=== PATIENT | male | born 1960 | race Caucasian/White ===

== ENCOUNTER 2018-06-12 10:12 | Inpatient (IN) | payer MEDICARE, MEDICAID ==
[2018-06-12 10:45] LABS: ABS Basophils 0.1 10^3/ul (0-0.2); ABS Eosinophils 0.4 10^3/ul (0-0.6); ABS Lymphocytes 1.6 10^3/ul (1.0-4.8); ABS Monocytes 0.5 10^3/ul (0-0.8); ABS Neutrophils 2.2 10^3/ul (1.5-7.7); ABS Nucleated RBC 0 10^3/ul; Eosinophil % 7.7 % (0-6); Hematocrit 40 % (42-52); Hemoglobin 13.3 g/dl (14.0-18.0); Lymphocyte % 34.7 % (25-47); Mean Corpuscular HGB Conc 33 g/dl (31-36); Mean Corpuscular Hemoglobin 29 pg (27-31); Mean Corpuscular Volume 88 fL (80-94); Mean Platelet Volume 7.2 um3 (7.4-10.4); Nucleated Red Blood Cells % 0; Platelet Count 186 10^3/ul (150-450); Red Blood Count 4.56 10^6/ul (4.00-5.40); Red Cell Distribution Width 17 % (10.5-15); White Blood Count 4.6 10^3/ul (3.5-10.8)
[2018-06-12 10:52] LABS: Urine Appearance Clear; Urine Blood Negative (Negative); Urine Color Straw; Urine Ketones Negative (Negative); Urine Protein Negative (Negative); Urine Specific Gravity 1.005 (1.010-1.030); Urine Urobilinogen Negative (Negative)
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
[2018-06-12 11:03] LABS: EGFR Non-African American 135.8 (>60)
[2018-06-12] MEDS ORDERED: chlordiazePOXIDE CAP* 25 MG PO ONE ×2 (11:18→16:34)
[2018-06-12] MEDS ORDERED: chlordiazePOXIDE/Clidinium 1 CAP CAP PO ONE (16:12)
[2018-06-12] MEDS ORDERED: Thiamine IV 100 MG, Folic Acid IV* 1 MG, Multiple Vitamin IV ADULT* 10 ML in NS 0.9% 10... IV ONE (17:34)
[2018-06-12] MEDS ORDERED: Dextrose 50% Syringe 50 ML* 25 GM/50 ML SYRINGE IV PUSH PRN (17:38)
[2018-06-12] MEDS ORDERED: NS 0.9% 1000 ML* 1,000 ML IV SCH (17:45)
[2018-06-12] MEDS: LORazepam TAB(*) 1 MG PO SCH (19:20)
[2018-06-12] MEDS: Omeprazole CAP* 20 MG PO SCH (19:20)
[2018-06-12] MEDS: Gabapentin CAP(*) 100 MG PO SCH (19:21)
[2018-06-12] MEDS: hydrOXYzine HCL TAB* 25 MG PO PRN (19:21)
[2018-06-12] MEDS: Nicotine PATCH 21 MG/24 HR* PATCH TRANSDERM SCH (19:23)
[2018-06-12] MEDS: Nicotine Patch Removal NOTE FOLLOW UP SCH (20:14)
--- NOTE | 2018-06-12 22:27 | HP ---
HISTORY AND PHYSICAL: DATE OF ADMISSION: 06/12/18 PRIMARY CARE PROVIDER: Unknown. ATTENDING PHYSICIAN WHILE IN THE HOSPITAL: Dr. Genet Hicks * (report dictated by Aureliano Arriola NP) CHIEF COMPLAINT: 1. EtOH abuse. 2. EtOH withdrawal. HISTORY OF PRESENT ILLNESS: Mr. Chun is a 58-year-old male patient. He has a known history of substance abuse, particularly alcohol, he drinks about 1 to 2 pints of vodka a day. He was sober for 6 months and then unfortunately he started actively drinking. On 05/25/18, he relocated to [place] for better support. He also carries a history of Korsakoff dementia, history of [place], history of CVA secondary to complications of PCI. He has a history of CAD, diabetes, hypertension, hyperlipidemia, CHARLENE, and Guzman's esophagus. He is coming in to our ER today because he knew that he was getting in to trouble. In terms of drinking, he was causing harm to himself. He says that him drinking is like trying to commit suicide, although when I asked him point blank if he was suicidal, he said "no" and he says he does not have a plan, but he knows that drinking is going to kill him, so he needs help and he does relay the fact that when he does go through EtOH withdrawal, it can be quite violent. He has had trouble with psychosis in the past. He has also had trouble with seizures in the past. He came in to the ER. There was concern because when he hit the door, he was noted to be having an alcohol level of over 200. He started showing signs of early withdrawal with just mild tremors here. He is not tachycardic and he is not hypertensive. There was concern because of his alcoholism and we were asked to evaluate for admission. PAST MEDICAL HISTORY: Significant for: 1. Substance abuse, particularly alcohol. 2. Korsakoff dementia. 3. [place]. 4. CVA. 5. Nephrolithiasis. 6. CAD. 7. Diabetes. 8. Hypertension. 9. Hyperlipidemia. 10. CHARLENE. 11. Guzman's esophagus. PAST SURGICAL HISTORY: He has had: 1. Cardiac catheterization with stent. 2. Left rotator cuff repair. 3. Carpal tunnel repair. MEDICATIONS: Home meds according to the list that was provided include: 1. Imodium 1 capsule p.o. daily. 2. Vitamin B1 one tablet p.o. daily. 3. Melatonin 1 tab daily. 4. Fish oil 1 tablet p.o. daily. 5. Gabapentin 200 mg p.o. b.i.d. 6. Metformin 500 mg p.o. b.i.d. 7. Citalopram 20 mg p.o. daily. 8. Simvastatin 40 mg daily. 9. Aspirin 81 mg daily. 10. Atarax 25 mg p.o. every 6 hours as needed for anxiety. 11. Wellbutrin 150 mg p.o. daily. 12. Altace 5 mg a day. 13. Omeprazole 20 mg p.o. daily. ALLERGIES TO MEDICATIONS: Include no known drug allergies. FAMILY HISTORY: His mother was an alcoholic. His father committed suicide. SOCIAL HISTORY: He is a pack-a-day smoker. He has been smoking for 40 years. He is a daily drinker. He has been drinking again 2 pints of vodka a day for the last 2 weeks. Surrogate decision maker is his sister. REVIEW OF SYSTEMS: There is no documented fever. He denies having any significant weight change. There is no ear discharge. He denies having any rhinorrhea. There is no sore throat. No thyroid enlargement. He denies having any chest pain. There is no orthopnea, there is no nocturnal dyspnea. There was no abdominal pain. No nausea, no vomiting. There is no dysuria, there is no frequency. There is no seizure, there is no loss of consciousness. No pruritus and no skin ulcerations. Review of 14 systems was completed, all others negative. PHYSICAL EXAMINATION GENERAL: At this time, Mr. Chun is a 58-year-old male patient. He is sitting in the ED stretcher. He does not appear to be in any acute distress currently. VITAL SIGNS: Blood pressure 167/91 with a pulse of 88, respirations 18, O2 sat 99%, temperature was 99.3. HEENT: Head: Atraumatic, normocephalic. Eyes: EOMs are intact. Sclerae anicteric and not pale. Throat: Oral mucosa appears to be moist. No oropharyngeal erythema. NECK: Supple. LUNGS: Clear to auscultation bilaterally. No wheezes, rales, or rhonchi. HEART: Sounds S1, S2. He had a regular rate and rhythm. He had no murmurs, rubs, or gallops. ABDOMEN: Soft, flat, nontender. Bowel sounds are present. EXTREMITIES: Pulses were 2+ throughout. He is moving all 4 extremities with 5/ 5 strength. NEUROLOGIC: The patient is awake, alert. He is oriented x3. He had no gross focal deficits. SKIN: Intact. LABORATORY DATA: The labs today revealed WBC of 4.6, RBC of 4.56, hemoglobin 13.3, hematocrit of 40, platelet count of 186. The chemistries revealed a sodium of 137, potassium of 3.8, chloride of 100, bicarb 24, BUN 12, creatinine of 0.61, glucose was 243, his calcium was 8.4. Total bili 0.5, AST 41, ALT 43, alk phos 66. Albumin of 4.1. Urine was obtained; it was negative. Toxicology was obtained, it was negative with the exception of alcohol, it was 225. Old medical records were reviewed. ASSESSMENT AND PLAN: Mr. Chun is a 58-year-old male patient coming in to the hospital today with complaints of alcoholism and requesting detox. In the ED, it was noticed that he was showing slight episodes of withdrawal. We were asked to evaluate for admission. He will be admitted under observation status for: 1. Ethanol abuse with mild signs of withdrawal. At this point, he is not actively suicidal. I will put him on safety monitor just in case because of the nature of his withdrawal. I am going to put him on the [facility] protocol. We will give him a banana bag. We will start thiamine on the patient and we will continue to follow him closely, I have ordered, and also will get a psychiatric evaluation as well and I have placed a Social Work consult. We will hydrate him and continue to monitor. I will put him on seizure prophylaxis as well. 2. History of Korsakoff dementia. Again, continue with vitamin supplementation. He appears to be stable. He is awake, alert, and oriented x3. 3. Coronary artery disease. Continue his aspirin, statin therapy. We may need to consider beta mainor, but I am not going to add this at this point. 4. Diabetes. He has been put on a lispro sliding scale. 5. History of hypertension. Continue meds as prescribed. 6. Hyperlipidemia. Continue statin therapy. 7. History of obstructive sleep apnea. I did order his CPAP. 8. Guzman's. Continue PPI therapy. Follow up with PCP, which will need to be established. 9. DVT prophylaxis. He will be placed on SCDs. 10. Code status. He is a full code. 11. Fluids, electrolytes, and nutrition. He can have a consistent carb diet. TIME SPENT: On the admission was approximately 60 minutes, greater than half the time was spent [id number] with the patient obtaining my history and physical; other half time was spent going over the plan of care with the patient and implementing plan of care. I did discuss the plan of care with my attending, Dr. Hicks; she is in agreement. AURELIANO ARRIOLA, HOANG [id number]/CPS #: [id number] MTDD
[2018-06-13] MEDS: LORazepam TAB(*) 1 MG PO SCH ×7 (00:16→22:20)
[2018-06-13 07:08] LABS: ABS Basophils 0.1 10^3/ul (0-0.2); ABS Eosinophils 0.4 10^3/ul (0-0.6); ABS Lymphocytes 1.6 10^3/ul (1.0-4.8); ABS Monocytes 0.5 10^3/ul (0-0.8); ABS Neutrophils 2.6 10^3/ul (1.5-7.7); ABS Nucleated RBC 0 10^3/ul; Eosinophil % 7.2 % (0-6); Hematocrit 37 % (42-52); Hemoglobin 12.5 g/dl (14.0-18.0); Lymphocyte % 31.6 % (25-47); Mean Corpuscular HGB Conc 34 g/dl (31-36); Mean Corpuscular Hemoglobin 30 pg (27-31); Mean Corpuscular Volume 88 fL (80-94); Mean Platelet Volume 7.5 um3 (7.4-10.4); Nucleated Red Blood Cells % 0.1; Platelet Count 136 10^3/ul (150-450); Red Blood Count 4.22 10^6/ul (4.00-5.40); Red Cell Distribution Width 16 % (10.5-15); White Blood Count 5.2 10^3/ul (3.5-10.8)
[2018-06-13 07:14] LABS: INR 0.99 (0.77-1.02)
[2018-06-13 07:19] LABS: EGFR Non-African American 117.8 (>60)
--- NOTE | 2018-06-13 07:36 | RAD ---
HISTORY: cad htn etoh abuse fever COMPARISONS: July 17, 2014 VIEWS: 1: frontal AP view of the chest at 6:03 PM FINDINGS: LINES AND TUBES: None. CARDIOMEDIASTINAL SILHOUETTE: The cardiomediastinal silhouette is normal for portable technique. PLEURA: The costophrenic angles are sharp. No pleural abnormalities are noted. LUNG PARENCHYMA: The lungs are clear. ABDOMEN: The upper abdomen is clear. There is no subphrenic gas. BONES AND SOFT TISSUES: No bone or soft tissue abnormalities are noted. IMPRESSION: NO ACTIVE CARDIOPULMONARY DISEASE. R1
[2018-06-13] MEDS: Insulin LISPRO* 1 UNITS UNIT SUBCUT SCH ×3 (07:54→17:14)
[2018-06-13] MEDS ORDERED: Aspirin EC TAB* 325 MG PO SCH (09:00)
[2018-06-13] MEDS: Omeprazole CAP* 20 MG PO SCH (09:48)
[2018-06-13] MEDS: Citalopram TAB* 20 MG PO SCH (09:48)
[2018-06-13] MEDS: Thiamine TAB* 100 MG TAB PO SCH (09:48)
[2018-06-13] MEDS: Folic Acid TAB* 1 MG PO SCH (09:48)
[2018-06-13] MEDS: Ramipril CAP* 5 MG PO SCH (09:48)
[2018-06-13] MEDS: Multivitamins/Minerals TAB PO SCH (09:48)
[2018-06-13] MEDS: buPROPion SR TAB.SR* 150 MG PO SCH (09:48)
[2018-06-13] MEDS: Nicotine PATCH 21 MG/24 HR* PATCH TRANSDERM SCH (09:49)
[2018-06-13] MEDS: Gabapentin CAP(*) 100 MG PO SCH ×2 (09:49→22:20)
[2018-06-13] MEDS: Atorvastatin* 20 MG TAB PO SCH (09:49)
[2018-06-13] MEDS: Acetaminophen TAB* 325 MG PO PRN (09:55)
[2018-06-13] MEDS ORDERED: Aspirin EC TAB* 81 MG TAB.EC PO SCH (09:59)
--- NOTE | 2018-06-13 10:00 | PN ---
Subjective Date of Service: 06/13/18 Interval History: Mr. Chun reports that his withdrawal symptoms are well controlled on the current ativan regimen. He reports being sober up until earlier this month when he returned it [place]. He presented to the ER because he was afraid that his drinking was going to kill him He denies chest pain, SOB, nausea, or abdominal pain. Objective Active Medications: Acetaminophen (Tylenol Tab*) 650 mg PO Q4H PRN Aspirin (Ecotrin Ec Tab*) 81 mg PO DAILY BARB Atorvastatin Calcium (Lipitor*) 20 mg PO DAILY BARB Bupropion HCl (Wellbutrin Sr Tab*) 150 mg PO DAILY BARB Citalopram Hydrobromide (Celexa Tab*) 20 mg PO DAILY BARB Dextrose (D50w Syringe 50 Ml*) 12.5 gm IV PUSH .FOR FS < 60 - SS PRN Folic Acid (Folvite Tab*) 1 mg PO DAILY BARB Gabapentin (Neurontin Cap(*)) 200 mg PO BID BARB Hydroxyzine HCl (Atarax Tab*) 25 mg PO Q6HR PRN Sodium Chloride (Ns 0.9% 1000 Ml*) 1,000 mls @ 100 mls/hr IV PER RATE [facility] Insulin Human Lispro (Humalog*) 0 units SUBCUT AC BARB; Protocol Lorazepam (Ativan Tab(*)) 0 - [address] [facility] PROTOCOL BARB; Protocol Lorazepam (Ativan Tab(*)) 2 mg PO Q8H BARB; Taper Multivitamins/Minerals (Theragran/Minerals Tab*) 1 tab PO DAILY BARB Nicotine (Nicotine Patch 21 Mg/24 Hr*) 1 patch TRANSDERM DAILY BARB Omeprazole (Prilosec Cap*) 20 mg PO 0800 BAR[facility] Ondansetron HCl (Zofran Inj*) 4 mg IV Q6H PRN Pharmacy Profile Note (Nicotine Patch Removal Note*) 1 note FOLLOW UP 2100 [facility] Ramipril (Altace Cap*) 5 mg PO DAILY BARB Thiamine HCl (Vitamin B-1 Tab*) 100 mg PO DAILY BARB Vital Signs: Temp Pulse Resp BP Pulse Ox 97.7 F 95 20 160/100 97 06/13/18 07:19 06/13/18 07:19 06/13/18 09:49 06/13/18 07:19 06/13/18 07:19 Oxygen Devices in Use Now: None Appearance: Male lying in bed in NAD Eyes: No Scleral Icterus Ears/Nose/Mouth/Throat: Mucous Membranes Moist Neck: Trachea Midline Respiratory: Symmetrical Chest Expansion and Respiratory Effort, Clear to Auscultation Cardiovascular: NL Sounds; No Murmurs; No JVD, No Edema Abdominal: NL Sounds; No Tenderness; No Distention Extremities: No Edema Skin: No Rash or Ulcers Neurological: Alert and Oriented x 3, NL Muscle Strength and Tone Nutrition: Taking PO's Result Diagrams: 06/13/18 06:47 06/13/18 06:47 Assess/Plan/Problems-Billing Assessment: Mr. Chun is a 58 yo M with a PMH of CVA, CAD, DM, HTN and chronic alcoholism who was admitted on 06/12/18 due to symptoms of alcohol withdrawal. - Patient Problems (1) Alcohol withdrawal Comment: - Continues to have active withdrawal symptoms requiring ativan throughout the morning. - Continue lorazepam prn per [facility] protocol. - Continue folic acid and thiamine, hx of korsakoff dementia (2) Diabetes Comment: - BGs reasonanly well controlled. - Hold metformin. - Continue lispro SSI coverage with meals. (3) Hypertension Comment: - SBP 140-170s. - Continue ramipril. (4) CAD (coronary artery disease) Comment: - Continue aspirin, atorvastatin. (5) Depression Comment: - Continue bupropion and citalopram. - No suicidal ideation. (6) Nicotine abuse Comment: - Nicotine replacement available prn. (7) DVT prophylaxis (8) Full code status Comment: Status and Disposition: Switch from OBV to Inpatient given persistent symptoms of withdrawal. Anticipate discharge to home when medically stable, patient not interested in inpatient rehab at this time.
[2018-06-13] MEDS: Heparin VIAL(*) 5000 UNITS/ML VIAL (FIVE THOUSAND) SUBCUT SCH ×2 (15:32→22:20)
[2018-06-13] MEDS: Aspirin EC TAB* 81 MG TAB.EC PO SCH (15:33)
[2018-06-13] MEDS: Nicotine Patch Removal NOTE FOLLOW UP SCH (22:22)
[2018-06-14] MEDS: Acetaminophen TAB* 325 MG PO PRN (01:30)
[2018-06-14] MEDS: LORazepam TAB(*) 1 MG PO SCH ×4 (01:30→20:07)
[2018-06-14] MEDS: hydrOXYzine HCL TAB* 25 MG PO PRN (05:32)
[2018-06-14] MEDS: Heparin VIAL(*) 5000 UNITS/ML VIAL (FIVE THOUSAND) SUBCUT SCH ×3 (05:32→20:08)
--- NOTE | 2018-06-14 07:45 | PN ---
Subjective Date of Service: 06/14/18 Interval History: Mr. Chun reports feeling ok today and has no acute complaints. He denies hallucinations, nursing staff report that he has needed ativan overnight. Objective Active Medications: Acetaminophen (Tylenol Tab*) 650 mg PO Q4H PRN Aspirin (Aspirin Ec Tab*) 81 mg PO DAILY@0900 [facility] Atorvastatin Calcium (Lipitor*) 20 mg PO DAILY BARB Bupropion HCl (Wellbutrin Sr Tab*) 150 mg PO DAILY BARB Citalopram Hydrobromide (Celexa Tab*) 20 mg PO DAILY BARB Dextrose (D50w Syringe 50 Ml*) 12.5 gm IV PUSH .FOR FS < 60 - SS PRN Folic Acid (Folvite Tab*) 1 mg PO DAILY BARB Gabapentin (Neurontin Cap(*)) 200 mg PO BID BARB Heparin Sodium (Porcine) (Heparin Vial(*)) 5,000 units SUBCUT Q8HR BARB Hydroxyzine HCl (Atarax Tab*) 25 mg PO Q6HR PRN Sodium Chloride (Ns 0.9% 1000 Ml*) 1,000 mls @ 100 mls/hr IV PER RATE [facility] Insulin Human Lispro (Humalog*) 0 units SUBCUT AC BARB; Protocol Lorazepam (Ativan Tab(*)) 0 - 6 mg PO .PER [facility] PROTOCOL BARB; Protocol Lorazepam (Ativan Tab(*)) 2 mg PO Q12H BARB; Taper Multivitamins/Minerals (Theragran/Minerals Tab*) 1 tab PO DAILY BARB Nicotine (Nicotine Patch 21 Mg/24 Hr*) 1 patch TRANSDERM DAILY BARB Omeprazole (Prilosec Cap*) 20 mg PO 0800 BARB Ondansetron HCl (Zofran Inj*) 4 mg IV Q6H PRN Pharmacy Profile Note (Nicotine Patch Removal Note*) 1 note FOLLOW UP 2100 [facility] Ramipril (Altace Cap*) 5 mg PO DAILY ABRB Thiamine HCl (Vitamin B-1 Tab*) 100 mg PO DAILY [facility] Vital Signs: Temp Pulse Resp BP Pulse Ox 98.3 F 81 18 158/85 98 06/14/18 07:13 06/14/18 07:13 06/14/18 07:13 06/14/18 07:13 06/14/18 07:13 Oxygen Devices in Use Now: None Appearance: Male sitting up in chair in NAD Eyes: No Scleral Icterus Ears/Nose/Mouth/Throat: Mucous Membranes Moist Neck: Trachea Midline Respiratory: Symmetrical Chest Expansion and Respiratory Effort, Clear to Auscultation Cardiovascular: NL Sounds; No Murmurs; No JVD, No Edema Abdominal: NL Sounds; No Tenderness; No Distention Extremities: No Edema Skin: No Rash or Ulcers Neurological: Alert and Oriented x 3, NL Muscle Strength and Tone Nutrition: Taking PO's Result Diagrams: 06/13/18 06:47 06/13/18 06:47 Assess/Plan/Problems-Billing Assessment: Mr. Chun is a 58 yo M with a PMH of CVA, CAD, DM, HTN and chronic alcoholism who was admitted on 06/12/18 due to symptoms of alcohol withdrawal. - Patient Problems (1) Alcohol withdrawal Comment: - Continues to have active withdrawal symptoms requiring ativan throughout the morning. - Continue lorazepam prn per [facility] protocol with routine dosing per taper for seizure prophylaxis. - Continue folic acid and thiamine, hx of korsakoff dementia (2) Diabetes Comment: - BGs well controlled. - Hold metformin. - Continue lispro SSI coverage with meals. (3) Hypertension Comment: - SBP 140-170s. - Continue ramipril, start low dose metoprolol given hx of CAD and uncontrolled htn. (4) CAD (coronary artery disease) Comment: - Continue aspirin, atorvastatin. (5) Depression Comment: - Continue bupropion and citalopram. - No suicidal ideation. (6) Nicotine abuse Comment: - Nicotine replacement available prn. (7) DVT prophylaxis (8) Full code status Comment: Status and Disposition: Switch from OBV to Inpatient given persistent symptoms of withdrawal. Anticipate discharge to home when medically stable, patient not interested in inpatient rehab at this time.
[2018-06-14] MEDS: Gabapentin CAP(*) 100 MG PO SCH ×2 (08:45→20:04)
[2018-06-14] MEDS: Thiamine TAB* 100 MG TAB PO SCH (08:45)
[2018-06-14] MEDS: Atorvastatin* 20 MG TAB PO SCH (08:46)
[2018-06-14] MEDS: Folic Acid TAB* 1 MG PO SCH (08:46)
[2018-06-14] MEDS: Aspirin EC TAB* 81 MG TAB.EC PO SCH (08:46)
[2018-06-14] MEDS: Omeprazole CAP* 20 MG PO SCH (08:46)
[2018-06-14] MEDS: buPROPion SR TAB.SR* 150 MG PO SCH (08:46)
[2018-06-14] MEDS: Citalopram TAB* 20 MG PO SCH (08:46)
[2018-06-14] MEDS: Ramipril CAP* 5 MG PO SCH (08:46)
[2018-06-14] MEDS: Multivitamins/Minerals TAB PO SCH (08:46)
[2018-06-14] MEDS: Nicotine PATCH 21 MG/24 HR* PATCH TRANSDERM SCH (08:47)
[2018-06-14] MEDS: Insulin LISPRO* 1 UNITS UNIT SUBCUT SCH ×3 (08:47→17:14)
[2018-06-14] MEDS: Metoprolol Tartrate TAB* 25 MG PO SCH ×2 (08:47→20:03)
[2018-06-14] MEDS: Nicotine Patch Removal NOTE FOLLOW UP SCH (20:08)
[2018-06-15] MEDS: Heparin VIAL(*) 5000 UNITS/ML VIAL (FIVE THOUSAND) SUBCUT SCH ×3 (04:58→21:33)
[2018-06-15] MEDS: hydrOXYzine HCL TAB* 25 MG PO PRN (04:58)
[2018-06-15] MEDS: LORazepam TAB(*) 1 MG PO SCH ×3 (05:05→21:31)
[2018-06-15] MEDS: Nicotine PATCH 21 MG/24 HR* PATCH TRANSDERM SCH (07:17)
[2018-06-15] MEDS: Insulin LISPRO* 1 UNITS UNIT SUBCUT SCH ×3 (07:18→17:19)
[2018-06-15] MEDS: Metoprolol Tartrate TAB* 25 MG PO SCH ×2 (07:21→21:33)
[2018-06-15] MEDS: Citalopram TAB* 20 MG PO SCH (07:21)
[2018-06-15] MEDS: Atorvastatin* 20 MG TAB PO SCH (07:21)
[2018-06-15] MEDS: Ramipril CAP* 5 MG PO SCH (07:21)
[2018-06-15] MEDS: Thiamine TAB* 100 MG TAB PO SCH (07:21)
[2018-06-15] MEDS: Omeprazole CAP* 20 MG PO SCH (07:21)
[2018-06-15] MEDS: Aspirin EC TAB* 81 MG TAB.EC PO SCH (07:21)
[2018-06-15] MEDS: Gabapentin CAP(*) 100 MG PO SCH ×2 (07:21→21:32)
[2018-06-15] MEDS: Multivitamins/Minerals TAB PO SCH (07:21)
[2018-06-15] MEDS: Folic Acid TAB* 1 MG PO SCH (07:21)
[2018-06-15] MEDS: buPROPion SR TAB.SR* 150 MG PO SCH (07:22)
--- NOTE | 2018-06-15 11:09 | PN ---
Subjective Date of Service: 06/15/18 Interval History: Mr. Chun continues to have hallucinations, diaphoresis and tachycardia at times, requiring ativan through the night. He states that he is tired this morning because he slept poorly but denies other complaint including chest pain , SOB, nausea, or abdominal pain. Objective Active Medications: Acetaminophen (Tylenol Tab*) 650 mg PO Q4H PRN Aspirin (Aspirin Ec Tab*) 81 mg PO DAILY@0900 [facility] Atorvastatin Calcium (Lipitor*) 20 mg PO DAILY BAR[facility] Bupropion HCl (Wellbutrin Sr Tab*) 150 mg PO DAILY [facility] Citalopram Hydrobromide (Celexa Tab*) 20 mg PO DAILY [facility] Dextrose (D50w Syringe 50 Ml*) 12.5 gm IV PUSH .FOR FS < 60 - SS PRN Folic Acid (Folvite Tab*) 1 mg PO DAILY [facility] Gabapentin (Neurontin Cap(*)) 200 mg PO BID [facility] Heparin Sodium (Porcine) (Heparin Vial(*)) 5,000 units SUBCUT Q8HR [facility] Hydroxyzine HCl (Atarax Tab*) 25 mg PO Q6HR PRN Sodium Chloride (Ns 0.9% 1000 Ml*) 1,000 mls @ 100 mls/hr IV PER RATE [facility] Insulin Human Lispro (Humalog*) 0 units SUBCUT AC BARB; Protocol Lorazepam (Ativan Tab(*)) 0 - 6 mg PO .PER [facility] PROTOCOL BARB; Protocol Lorazepam (Ativan Tab(*)) 1 mg PO Q12H BARB; Taper Metoprolol Tartrate (Lopressor Tab*) 12.5 mg PO Q12HR [facility] Multivitamins/Minerals (Theragran/Minerals Tab*) 1 tab PO DAILY [facility] Nicotine (Nicotine Patch 21 Mg/24 Hr*) 1 patch TRANSDERM DAILY [facility] Omeprazole (Prilosec Cap*) 20 mg PO 0800 [facility] Ondansetron HCl (Zofran Inj*) 4 mg IV Q6H PRN Pharmacy Profile Note (Nicotine Patch Removal Note*) 1 note FOLLOW UP 2100 [facility] Ramipril (Altace Cap*) 5 mg PO DAILY [facility] Thiamine HCl (Vitamin B-1 Tab*) 100 mg PO DAILY [facility] Vital Signs: Temp Pulse Resp BP Pulse Ox 98.2 F 82 18 145/88 96 06/15/18 10:50 10/01/18 10:50 06/15/18 10:50 06/15/18 10:50 06/15/18 10:50 Oxygen Devices in Use Now: None Appearance: Male sitting up in chair, eating breakfast in NAD Eyes: No Scleral Icterus Ears/Nose/Mouth/Throat: Mucous Membranes Moist Neck: NL Appearance and Movements; NL JVP, Trachea Midline Respiratory: Symmetrical Chest Expansion and Respiratory Effort, Clear to Auscultation Cardiovascular: NL Sounds; No Murmurs; No JVD, No Edema Abdominal: NL Sounds; No Tenderness; No Distention Extremities: No Edema Skin: No Rash or Ulcers Neurological: Alert and Oriented x 3, NL Muscle Strength and Tone Nutrition: Taking PO's Result Diagrams: 06/13/18 06:47 06/13/18 06:47 Assess/Plan/Problems-Billing Assessment: Mr. Chun is a 58 yo M with a PMH of CVA, CAD, DM, HTN and chronic alcoholism who was admitted on 06/12/18 due to symptoms of alcohol withdrawal. - Patient Problems (1) Alcohol withdrawal Comment: - Continues to have active withdrawal symptoms requiring ativan throughout the morning. - Continue lorazepam prn per [facility] protocol with routine dosing per taper for seizure prophylaxis. - Continue folic acid and thiamine, hx of korsakoff dementia (2) Diabetes Comment: - BGs well controlled. - Hold metformin. - Continue lispro SSI coverage with meals. (3) Hypertension Comment: - SBP 140-170s. - Continue ramipril, start low dose metoprolol given hx of CAD and uncontrolled htn. (4) CAD (coronary artery disease) Comment: - Continue aspirin, atorvastatin. (5) Depression Comment: - Continue bupropion and citalopram. - No suicidal ideation. (6) Nicotine abuse Comment: - Nicotine replacement available prn. (7) DVT prophylaxis Comment: - Heparin SQ (8) Full code status Comment: Status and Disposition: Inpatient given persistent symptoms of withdrawal. Anticipate discharge to home when medically stable, patient not interested in inpatient rehab at this time.
[2018-06-15] MEDS: Ondansetron INJ* 2 MG/ML VIAL IV PRN (21:29)
[2018-06-15] MEDS: Acetaminophen TAB* 325 MG PO PRN (21:31)
[2018-06-15] MEDS: Nicotine Patch Removal NOTE FOLLOW UP SCH (21:33)
[2018-06-16] MEDS: LORazepam TAB(*) 1 MG PO SCH ×4 (01:05→07:56)
[2018-06-16] MEDS: Ondansetron INJ* 2 MG/ML VIAL IV PRN (01:06)
[2018-06-16] MEDS: Heparin VIAL(*) 5000 UNITS/ML VIAL (FIVE THOUSAND) SUBCUT SCH (05:45)
--- NOTE | 2018-06-16 06:15 | PN ---
Subjective Date of Service: 06/16/18 Interval History: Mr. Chun reports feeling well this morning and is eager for discharge. He does not plan to attend a rehab but will be contacting his sponsor at the time of discharge. Objective Active Medications: Acetaminophen (Tylenol Tab*) 650 mg PO Q4H PRN Aspirin (Aspirin Ec Tab*) 81 mg PO DAILY@0900 [facility] Atorvastatin Calcium (Lipitor*) 20 mg PO DAILY [facility] Bupropion HCl (Wellbutrin Sr Tab*) 150 mg PO DAILY [facility] Citalopram Hydrobromide (Celexa Tab*) 20 mg PO DAILY [facility] Dextrose (D50w Syringe 50 Ml*) 12.5 gm IV PUSH .FOR FS < 60 - SS PRN Folic Acid (Folvite Tab*) 1 mg PO DAILY [facility] Gabapentin (Neurontin Cap(*)) 200 mg PO BID [facility] Heparin Sodium (Porcine) (Heparin Vial(*)) 5,000 units SUBCUT Q8HR [facility] Sodium Chloride (Ns 0.9% 1000 Ml*) 1,000 mls @ 100 mls/hr IV PER RATE [facility] Insulin Human Lispro (Humalog*) 0 units SUBCUT AC BARB; Protocol Lorazepam (Ativan Tab(*)) 0 - 6 mg PO .PER [facility] PROTOCOL BARB; Protocol Metoprolol Tartrate (Lopressor Tab*) 12.5 mg PO Q12HR [facility] Multivitamins/Minerals (Theragran/Minerals Tab*) 1 tab PO DAILY [facility] Nicotine (Nicotine Patch 21 Mg/24 Hr*) 1 patch TRANSDERM DAILY [facility] Omeprazole (Prilosec Cap*) 20 mg PO 0800 [facility] Ondansetron HCl (Zofran Inj*) 4 mg IV Q6H PRN Pharmacy Profile Note (Nicotine Patch Removal Note*) 1 note FOLLOW UP 2100 [facility] Ramipril (Altace Cap*) 5 mg PO DAILY [facility] Thiamine HCl (Vitamin B-1 Tab*) 100 mg PO DAILY [facility] Vital Signs: Temp Pulse Resp BP Pulse Ox 98.5 F 79 18 161/84 98 06/15/18 23:13 06/16/18 05:11 06/16/18 05:44 06/16/18 05:11 06/16/18 05:11 Oxygen Devices in Use Now: None Appearance: Male sitting up in chair in NAD Eyes: No Scleral Icterus Ears/Nose/Mouth/Throat: Mucous Membranes Moist Neck: Trachea Midline Respiratory: Symmetrical Chest Expansion and Respiratory Effort, Clear to Auscultation Cardiovascular: NL Sounds; No Murmurs; No JVD, No Edema Abdominal: NL Sounds; No Tenderness; No Distention Extremities: No Edema Skin: No Rash or Ulcers Neurological: Alert and Oriented x 3, NL Muscle Strength and Tone Nutrition: Taking PO's Result Diagrams: 06/13/18 06:47 06/13/18 06:47 Assess/Plan/Problems-Billing Assessment: Mr. Chun is a 58 yo M with a PMH of CVA, CAD, DM, HTN and chronic alcoholism who was admitted on 06/12/18 due to symptoms of alcohol withdrawal. - Patient Problems (1) Alcohol withdrawal Comment: - Resolved - Continue folic acid and thiamine, hx of korsakoff dementia (2) Diabetes Comment: - Resume metformin (3) Hypertension Comment: - SBP 140-170s. - Continue ramipril, start metoprolol. (4) CAD (coronary artery disease) Comment: - Continue aspirin, atorvastatin. (5) Depression Comment: - Continue bupropion and citalopram. - No suicidal ideation. (6) Nicotine abuse Comment: - Nicotine replacement available prn. (7) DVT prophylaxis Comment: - Heparin SQ (8) Full code status Comment: Status and Disposition: Discharge to home
[2018-06-16] MEDS: Insulin LISPRO* 1 UNITS UNIT SUBCUT SCH (07:45)
[2018-06-16] MEDS: Nicotine PATCH 21 MG/24 HR* PATCH TRANSDERM SCH (07:55)
[2018-06-16] MEDS: Metoprolol Tartrate TAB* 25 MG PO SCH (07:56)
[2018-06-16] MEDS: Multivitamins/Minerals TAB PO SCH (07:57)
[2018-06-16] MEDS: Ramipril CAP* 5 MG PO SCH (07:57)
[2018-06-16] MEDS: Citalopram TAB* 20 MG PO SCH (07:57)
[2018-06-16] MEDS: Folic Acid TAB* 1 MG PO SCH (07:57)
[2018-06-16] MEDS: Gabapentin CAP(*) 100 MG PO SCH (07:57)
[2018-06-16] MEDS: Omeprazole CAP* 20 MG PO SCH (07:57)
[2018-06-16] MEDS: Thiamine TAB* 100 MG TAB PO SCH (07:57)
[2018-06-16] MEDS: buPROPion SR TAB.SR* 150 MG PO SCH (07:58)
[2018-06-16] MEDS: Atorvastatin* 20 MG TAB PO SCH (07:58)
[2018-06-16] MEDS: Aspirin EC TAB* 81 MG TAB.EC PO SCH (07:58)
[2018-06-16 09:42] VITALS: BP 144/81
--- NOTE | 2018-06-17 04:14 | DS ---
CC: Providers at the [facility] * DISCHARGE SUMMARY: DATE OF ADMISSION: 06/12/18 DATE OF DISCHARGE: 06/16/18 ATTENDING PHYSICIAN: Caren Ferguson MD * (dictation provided by Vanessa Aguero NP ). PRIMARY DIAGNOSIS: Alcohol withdrawal. SECONDARY DIAGNOSES: 1. History of substance abuse particularly alcohol. 2. Korsakoff dementia. 3. Myocardial infarction. 4. Cerebrovascular accident. 5. Nephrolithiasis. 6. Coronary artery disease. 7. Diabetes. 8. Hypertension. 9. Hyperlipidemia. 10. Obstructive sleep apnea. 11. Guzman's esophagus. MEDICATIONS AT THE TIME OF DISCHARGE: 1. Imodium 1 capsule p.o. daily. 2. Vitamin B 1 tab p.o. daily. 3. Melatonin daily. 4. Fish oil 1 tablet p.o. daily. 5. Gabapentin 200 mg p.o. b.i.d. 6. Metformin 500 mg p.o. b.i.d. 7. Citalopram 20 mg p.o. daily. 8. Simvastatin 40 mg p.o. daily. 9. Aspirin 81 mg p.o. daily. 10. Atarax 25 mg p.o. q. 6 hours p.r.n. for anxiety. 11. Wellbutrin 150 mg p.o. daily. 12. Altace 5 mg p.o. daily. 13. Omeprazole 20 mg daily. 14. Metoprolol succinate 25 mg p.o. daily. HOSPITAL COURSE: Mr. Chun is a 58-year-old male with past medical history of alcohol abuse and frequent admissions for alcohol withdrawal symptoms who presented to the hospital on 06/12/18 with concern for alcohol withdrawal symptoms. Please see dictated H and P from Aureliano Arriola NP for complete details. In brief, the patient reported that he was drinking about 1 to 2 pints of vodka per day. He came to the emergency room because "he knew he was getting into trouble." In the emergency room, his labs showed alcohol level of 225 and were otherwise unremarkable. Mr. Chun was admitted to the hospital and treated with multivitamin, folic acid and thiamine replacement therapy as well as intravenous fluids. He also had Ativan routinely for seizure prophylaxis and as needed for withdrawal symptoms. With this, he is doing well. His symptoms have been managed appropriately and he is symptom free this a.m. Mr. Chun states that he is not interested in attending an inpatient rehabilitation facility again. He plans to reconnect with his sponsor from at the time of discharge. We will set him up with followup plans with [facility] for new provider within the next week. During this hospitalization, the patient's blood pressure was noted to be elevated greater than 140 despite appropriate treatment for alcohol withdrawal. I suspect that he has some underlying hypertension that is not adequately treated with Ramipril and I have added metoprolol. DISPOSITION: Home. DIET: Low fat, low salt. ACTIVITY: As tolerated. FOLLOWUP PLAN: Please followup with [facility] and/or a new provider at [facility] based on availability of appointment. TIME SPENT: Approximately 60 minutes were spent in the discharge of this patient, where half the time spent with the patient at bedside reviewing the events leading up to this hospitalization, performing the physical examination, reviewing the plan of care. VANESSA AGUERO NP [id number]/CPS #: [id number] ELVIA
== END 2018-06-16 12:00 | disposition home or self-care (01) | DRG 897 ==
LOC: ED 10:12 → MED 17:43 → OBSVTOIN 06-13 10:09
PROVIDERS: ADMIT Internal Medicine; ATTEND Internal Medicine
DX: F10.239 Alcohol dependence with withdrawal, unspecified (principal); Y90.8 Blood alcohol level of 240 mg/100 ml or more; F03.90 Unspecified dementia, unspecified severity, without behavioral disturbance, psychotic disturbance, mood disturbance, and anxiety; F04 Amnestic disorder due to known physiological condition; I25.10 Atherosclerotic heart disease of native coronary artery without angina pectoris; I11.9 Hypertensive heart disease without heart failure; E11.9 Type 2 diabetes mellitus without complications; E78.5 Hyperlipidemia, unspecified; G47.33 Obstructive sleep apnea (adult) (pediatric); K22.70 Barrett's esophagus without dysplasia; I25.2 Old myocardial infarction; Z95.5 Presence of coronary angioplasty implant and graft; Z86.73 Personal history of transient ischemic attack (TIA), and cerebral infarction without residual deficits; Z79.84 Long term (current) use of oral hypoglycemic drugs; Z79.82 Long term (current) use of aspirin; Z79.899 Other long term (current) drug therapy; Z81.1 Family history of alcohol abuse and dependence; Z81.8 Family history of other mental and behavioral disorders; F17.210 Nicotine dependence, cigarettes, uncomplicated
CPT/HCPCS: 36415; 71045; 80048; 80053; 80076; 80307; 80320; 80329; 81003; 84443; 85025; 85610; 90686; 93005; 94660; 99285; A9270-GY; G0378; G0480; J1644; J2405; J3411

== ENCOUNTER 2018-06-29 02:00 | Emergency (ER) | payer MEDICARE, MEDICAID ==
--- NOTE | 2018-06-29 02:42 | RAD ---
EXAM: CT Head Without Intravenous Contrast CLINICAL HISTORY: 58 years old, male; Injury or trauma; Fall TECHNIQUE: Axial computed tomography images of the head/brain without intravenous contrast. All CT scans at this facility use at least one of these dose optimization techniques: automated exposure control; mA and/or kV adjustment per patient size (includes targeted exams where dose is matched to clinical indication); or iterative reconstruction. COMPARISON: BRAIN WO CT BRAIN WO 05/28/2014 4:53 PM FINDINGS: Brain: No acute intracranial hemorrhage. No intracranial mass or mass effect. The anderson matter appears intact. No significant white matter pathology. Ventricles: No obstructive hydrocephalus. Bones/joints: Unremarkable. No acute fracture. Soft tissues: Scalp hematoma overlying the posterior aspect of the posterior parietal calvarium. Vasculature: Vascular calcification. Sinuses: Prior sinonasal surgery. Mucoperiosteal thickening involving the right maxillary sinus. Mastoid air cells: Unremarkable as visualized. No mastoid effusion. IMPRESSION: 1. No evidence of acute intracranial hemorrhage. 2. Scalp hematoma overlying the posterior parietal calvarium in the midline. No underlying fracture. To contact [facility] with a general question: Operations Center - [phone] For direct physician to physician contact: Physician Hotline - [phone] [facility] ([facility] Facility ID #[id number])
--- NOTE | 2018-06-29 03:09 | RAD ---
EXAM: CT Cervical Spine Without Intravenous Contrast CLINICAL HISTORY: 58 years old, male; Injury or trauma; Fall; Initial encounter; Abrasion TECHNIQUE: Axial computed tomography images of the cervical spine without intravenous contrast. All CT scans at this facility use at least one of these dose optimization techniques: automated exposure control; mA and/or kV adjustment per patient size (includes targeted exams where dose is matched to clinical indication); or iterative reconstruction. Coronal and sagittal reformatted images were created and reviewed. COMPARISON: DWAINE AVILA CT SPINE CERVICAL W/O 05/28/2014 5:01 PM FINDINGS: Vertebrae: No evidence of an acute fracture involving the cervical vertebral bodies or posterior elements. No pathologic subluxation. Straightening of the normal cervical lordosis with a smooth anterior flexion deformity centered at C4-C5. The dens is displaced to the right of midline. This most likely is related to head position. The dens and its relationship to the anterior arch of C1 is normal. Discs/spinal canal/neural foramina: Multilevel degenerative cervical disc disease and facet disease. No significant central canal stenosis. Variable degrees of neural foraminal narrowing secondary to degenerative changes of the uncovertebral joints and facet joints. Soft tissues: Unremarkable. Vasculature: Bilateral carotid artery calcification. Lung apices: Unremarkable as visualized. IMPRESSION: 1. No evidence of acute fracture involving the cervical vertebral bodies or posterior elements. No pathologic subluxation. To contact [facility] with a general question: Operations Center - [phone] For direct physician to physician contact: Physician Hotline - [phone] [facility] ([facility] Facility ID #[id number])
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
--- OUTSIDE RECORDS SUMMARY | 2018-06-29 08:21 | XMS REPORT ---
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 Primary Care Physician Unavailable Payers Type Date Identification Numbers Payment Provider Subscriber Medicare Primary Policy Number: [id number] Medicare Chong Magana Lay PayID: [id number] [address] [place] [address] [facility] Part B Policy Number: [id number] Medicaid Venkat Lay Group Name: 1 1 [address] PayID: [id number] [place] [address] Problems Date Description Provider Status Onset: 10/12/2013 Benign essential hypertension Raciel Rm M.D., [facility], Active [facility] Onset: 10/12/2013 Chronic ischemic heart disease Raciel Rm M.D., [facility], Active [facility] Onset: 10/12/2013 Chest pain Raciel Rm M.D., [facility], Active [facility] Onset: 10/12/2013 Hyperlipidemia Raciel Rm M.D., [facility], Active [facility] Social History Type Date Description Comments Lives With Roommate Occupation Disabled Occupation Retired 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 Last STI testing 3 months ago,all negative, no exposure since then Allergies, Adverse Reactions, Alerts Date Description Reaction Status Severity Comments 10/12/2013 Donepezil nightmares, active Moderate to Severe hallucinations 01/03/2011 NKDA inactive Medications Medication Date Status Form Strength Qnty SIG Indications Ordering Provider Acamprosate 10/10/ Active Tablets DR 333mg 180ta 2 tab by F10. Calcium 2017 bs mouth Cuello, three MD times a day Ramipril 10/10/ Active Capsules 10mg 30cap 1 cap by I10 2017 s mouth Cuello, every day Omeprazole 10/10/ Active Capsules DR 20mg 90cap 1 by Dylan 2017 s mouth DRachelle [place], every day M.D.,FACP Nitrostat / Active Tablets Sub 0.4mg QS one sl Unknown 0000 q5min up to 3 doses prn Trazodone HCL / Active Tablets 100mg 30tab 1 po qhs Unknown 0000 s prn Metoprolol / Active Tablets 25mg 200ta 1 po bid Denton, Tartrate 0000 bs MD Geraldo Multivitamin / Active one po qd Unknown 0000 Aspirin Low Dose / Active Tablets 81mg 90tab 1 po qd Unknown 0000 s Fluticasone / Active Suspension 50mcg/Act 16gm 2 sprays Unknown Propionate 0000 each nostril qday prn Hydroxyzine / Active Capsules 25mg 60cap 1 cap po Denton Pamoate 0000 s q6 hrs Geraldo, prn for itching Citalopram / Active Tablets 20mg 30tab 1 po qd [place]enton Hydrobromide 0000 s MD Geraldo Wellbutrin XL / Active Tablets ER 300mg 30tab 1 po qd Unknown 0000 24HR s Carafate 00/ Active Tablets 1gm 30tab take one Unknown 0000 s (1) tablet po tid with meds Guanfacine HCL /00/ Active Tablets 1mg 30tab 1 po qd Denton, 0000 s MD Geraldo Atorvastatin / Active Tablets 20mg 30tab take 1 Unknown Calcium 0000 s tablet at bedtime Propranolol HCL / Active Tablets 10mg Take 2 Unknown 0000 Tablets By Mouth Two Times Daily Metformin HCL / Active Tablets 500mg Take 1 Unknown 0000 Tablet By Mouth Two Times Daily With A Meal Gabapentin / Active Capsules 100mg Take Two Unknown 0000 Capsules By Mouth Three Times A Day Simvastatin / Active Tablets 40mg Take 1 Unknown 0000 Tablet By Mouth Every Evening Altace 10/12/ Hx Capsules 5mg 90cap 1 tab by Raciel 2013 - mouth Stefek, 06/24/ every day M.D., 2018 [facility] Donepezil HCL 04/02/ Hx Tablets 5mg 60tab 1 every Bhaskar S. 2012 - day for 1 Rudy, 10/12/ M.D. 2013 then 2 qd Diazepam 03/30/ Hx Tablets 5mg 2tabs 1 tab 30 S2012 - Rudy, 04/02/ M.D. 2012 mri, make take a second tablet if needed Nicotine / Hx Patches 14mg/24HR 30uni apply one Unknown 0000 - 24HR ts patch 10/11/ daily 2014 Altace / Hx Capsules 2.5mg 90cap 1 po qd Unknown 0000 - s 2013 Nicorette / Hx 2mg 1 po qid Unknown 0000 - prn 2013 Acetaminophen / Hx Tablets 325mg 100ta 2 tablets Unknown 0000 - bs po q4hrs 2012 Gabapentin / Hx Capsules 100mg 90cap 1 po qid Unknown 0000 - s 2012 Crestor / Hx Tablets 20mg 30tab 1 po qd Unknown 0000 - s 2012 Lipitor / Hx Tablets 20mg 30tab one tab Unknown 0000 - s po qhs 2013 Venlafaxine HCL / Hx Tablets 75mg 90tab 3 po qd Unknown 0000 - s 2012 Methylphenidate / Hx Tablets 18mg 135ta one po q Unknown 0000 - bs Am 2012 Wellbutrin SR / Hx Tablets ER 150mg 1 po qday Unknown 0000 - 12HR 2013 Augmentin / Hx Tablets 500-125mg 10tab 1 po bid Unknown 0000 - s last dose 2013 09/18/13 Lisinopril / Hx Tablets 10mg 30tab 1 po qd Denton - s Geraldo, 2013 Pantoprazole / Hx Tablets DR 40mg 90tab 1 po qd Carol Chawla - s Geraldo, 2017 Aspirin / Hx Chewtabs 81mg Chew 1 Unknown 0000 - Tablet By Mouth 2017 Every Day Bupropion HCL ER / Hx Tablets ER 150mg Take 1 Unknown (XL) 0000 - 24HR Tablet By 2017 Every Morning Citalopram / Hx Tablets 20mg Take 1 Unknown Hydrobromide 0000 - Tablet By 2017 Every Day Ramipril / Hx Capsules 5mg Take 1 Unknown 0000 - Capsule By Mouth 2017 Every Day Omeprazole / Hx Capsules DR 20mg Take 1 Unknown 0000 - Capsule By Mouth 2017 Every Day Hydroxyzine HCL / Hx Tablets 25mg Take 1 Unknown 0000 - Tablet By AT 2018 Bedtime as Needed Nitroglycerin / Hx Tablets Sub 0.4mg Place One Unknown 0000 - Tablet Under The 2018 Tongue as Needed For Chest Pain, May Repeat Vital Signs Date Vital Result Comment 06/24/2018 Height 67 inches 5'7" Weight 212.00 lb Heart Rate 84 /min BP Systolic Sitting 150 mmHg BP Diastolic Sitting 90 mmHg Body Temperature 98.0 F O2 % BldC Oximetry 94 % BMI (Body Mass Index) 33.2 kg/m2 10/12/2013 Height 65 inches 5'5" Weight 186.00 lb no shoes Heart Rate 6466 /min sit and stand HR reg BP Systolic 150 mmHg R arm reg cuff BP Diastolic 90 mmHg R arm reg cuff BP Systolic Sitting 150 mmHg L arm reg cuff BP Diastolic Sitting 92 mmHg L arm reg cuff BP Systolic Standing 138 mmHg L arm reg cuff BP Diastolic Standing 90 mmHg L arm reg cuff Respiratory Rate 17 /min BMI (Body Mass Index) 30.9 kg/m2 04/02/2013 Height 67 inches 5'7" Weight 185.00 lb Heart Rate 68 /min BP Systolic Sitting 118 mmHg BP Diastolic Sitting 70 mmHg Respiratory Rate 8 /min BMI (Body Mass Index) 29.0 kg/m2 03/17/2013 Height 67 inches 5'7" Weight 185.00 lb Heart Rate 64 /min BP Systolic 142 mmHg BP Diastolic 86 mmHg Respiratory Rate 16 /min BMI (Body Mass Index) 29.0 kg/m2 Results Test Date Test Result H/L Range Note Laboratory test finding 06/24/2018 Hemoglobin A1c 7.0 5-7 Glucose Fingerstick 243 Procedures Date CPT Code Description Status 02/13/2014 46113 Treadmill Interp/Report Only Completed 02/13/2014 88349 Stress Test Supervsn W/Out I/R Completed 02/11/2014 33590 EKG, Interpretation Only Completed 02/10/2014 97876 EKG, Interpretation Only Completed 10/12/2013 38850 EKG Tracing & Interpretation Completed 09/10/2013 34338 Treadmill Interp/Report Only Completed 09/10/2013 84308 Stress Test Supervsn W/Out I/R Completed 09/09/2013 84481 Treadmill Interp/Report Only Completed 09/09/2013 91884 Stress Test Supervsn W/Out I/R Completed 09/06/2013 97137 EKG, Interpretation Only Completed 08/21/2013 28888 EKG, Interpretation Only Completed 03/28/2013 92724 Polysomnography Sleep Staging 4+ Parameters W/Cpap Completed 11/04/2012 43216 Treadmill Interp/Report Only Completed 11/04/2012 18125 Stress Test Supervsn W/Out I/R Completed Encounters Type Date Location Provider CPT E/M Dx [facility] 53854 F10.239 10:16a Hospitalists F10.27 I10 R44.3 R00.0 Office Visit 06/14/2018 10:16a [facility],jose Aguero N.P. 70421 F10.239 Hospitalists F10.27 I10 Office Visit 06/13/2018 10:16a [facility], Vanessa Aguero N.P. 39458 F10.239 Hospitalists F10.27 Office Visit 06/12/2018 10:15a [facility], 10538 F10.239 Assoc, Hospitalists N.P. F10.27 Office Visit 04/23/2014 3:17p [facility] Dylan H[place], [address] 786.59 Assoc,pc Hospitalists [place] Hospitalist 291.9 Office Visit 02/13/2014 8:52a [facility]pc Genet Jimenez, 39182 786.50 Hospitalists Elizabeth 291.81 305.1 300.9 Office Visit 02/12/2014 8:51a [facility] Genet Jimenez, 96772 786.50 Hospitalists MChang 291.81 305.1 300.9 Office Visit 02/11/2014 8:51a [facility] Genet Jimenez, 75535 786.50 Hospitalists MChang 291.81 305.1 300.9 Office Visit 02/10/2014 8:49a [facility] Genet Jimenez, 66882 786.50 Hospitalists Elizabeth 291.81 305.1 300.9 Office Visit 12/25/2013 2:59p [facility] Bhaskar Bobby 89672 276.2 Hospitalists Elizabeth Doty 303.90 Office Visit 12/24/2013 2:58p [facility] Genet Jimenez, 33297 303.90 Hospitalists Elizabeth 276.2 Office Visit 10/12/2013 1:15p [facility] Raciel Rm M.D., 03390 401.1 [facility] FAC, [facility] 414.9 786.50 272.4 Office Visit 09/09/2013 9:27a [facility] Caren Ferguson, 13281 291.81 Assoc,pc Hospitalists [place] 311 786.50 v62.84 Office Visit 09/08/2013 9:27a [facility] Caren Ferguson, 82939 786.50 Assoc,pc Hospitalists [place] 291.81 v62.84 311 Office Visit 09/07/2013 9:27a [facility] Caren Ferguson, 23781 786.50 Assoc,pc Hospitalists Elizabeth 291.81 311 v62.84 Office Visit 09/06/2013 9:26a [facility] Brandy Robles, 68847 786.05 Hospitalists D.O. 291.81 311 v62.84 Office Visit 08/23/2013 9:11a [facility] Genet Jimenez, 97863 786.50 Hospitalists M.DRachelle 291.3 305.00 Office Visit 08/22/2013 9:10a [facility] Genet Jimenez, 84108 786.50 Hospitalists M.DRachelle 291.3 305.00 Office Visit 08/21/2013 9:10a [facility] Genet Jimenez, 31234 786.50 Hospitalists M.DRachelle 291.3 305.00 Office Visit 08/20/2013 9:10a [facility] Genet Jimenez, 40526 786.50 Hospitalists M.D. Office Visit 04/02/2013 10:00a [facility] Bhaskar Grant, 64958 331.83 [facility] M.D. 437.9 Office Visit 03/17/2013 1:00p [facility] Bhaskar Grant, 17497 780.93 [facility] M.D. 437.9 303.93 Office Visit 01/22/2013 4:05p [facility] [place], 62334 327.23 [facility] Center M.D. Office Visit 11/05/2012 1:11p [facility] [place], [address] 414.01 Assoc, Hospitalists MChang 300.9 Office Visit 11/03/2012 1:11p [facility] Assoc, Dennis Raymond, 10037 414.01 Hospitalists MChang 300.9 Plan of Care Future Appointment(s):07/27/2018 2:10 pm - Anju Phelps M.D. at [facility]07/08/2018 10:00 am - Jigna Cuello MD at [facility] Internal Medicine - [address]06/24/2018 - Jigna Cuello MDF10.27 Alcohol dependence with alcohol- induced persisting dementiaNew Medication:Acamprosate Calcium 333 mgComments: First goal: Go to a local meetingSecond Goal: Talk to Betty Cotto about finding an inpatient detox nearbyThird goal: Try acamprosate to help reduce [id number] Essential (primary) hypertensionNew Medication:Ramipril 10 mgComments:For your high blood pressure: we are increasing the dose of ramipril to 10 PLEASE BRING ALL MEDICATION BOTTLES TO NEXT VISITFollow up:2 bwzdyD58.65 Type 2 diabetes mellitus with hyperglycemiaComments:Continue metforminGoals:Follow a low carb diet, continue walking aauuoI64.1 Encounter for screening for diabetes chepnwpbG58.210 Nicotine dependence, cigarettes, uncomplicatedComments:I urge you to continue your efforts to quit smoking.I25.9 Chronic ischemic heart disease, unspecifiedComments:You were given a referral to Cardiology todayReferral:Anju Phelps MD, Cardiovsclr XkcamilO86.1 Major depressive disorder, recurrent, moderateComments:Continue current medications, call the suicide hotline if you have increasing thoughts of suicide
[2018-06-29 08:22] VITALS: BP 151/84
--- NOTE | 2018-06-29 08:23 | ED ---
Progress - Progress Note Progress Note: This patient signed out from Dr. Flaherty on shift changed awaiting sobriety. At this time the patient is walking and talking appropriately. He has clear speech and a steady gate. He states he was supposed to call [place] [facility] at 0800, pt will be discharged and f/u there. Re-Evaluation - Re-Evaluation First Eval Change: Improved - Patient now demonstrates clear speech, steady gait. He states that he is alcoholic and had previously spoke to therapy on [place] and plans to call this morning to get into their detox program. Course/Dx - Course Course Of Treatment: This patient signed out from Dr. Flaherty on shift changed awaiting sobriety. At this time the patient is walking and talking appropriately. He has clear speech and a steady gate. He states he was supposed to call [place] stabilization at 0800, pt will be discharged and f/u there. - Diagnoses Provider Diagnoses: Closed head injury, Alcoholism, Alcohol intoxication Discharge - Sign-Out/Discharge Documenting (check all that apply): Patient Departure, Receiving Sign-Out Receiving patient FROM: Nan Flaherty - Discharge Plan Condition: Improved Disposition: HOME Patient Education Materials: Alcohol Use Disorder (ED) Referrals: [facility] [Outside] [facility]ERR[facility] [Outside] Additional Instructions: Follow-up with [facility] in [place] with a call at 8:30 as scheduled. Do not drink alcohol, especially to excess. Return if worse, new symptoms or other concerns as discussed. - Billing Disposition and Condition Condition: IMPROVED Disposition: Home - Attestation Statements Document Initiated by Scribe: Yes Documenting Scribe: Homer Sifuentes Provider For Whom Rod is Documenting (Include Credential): Guido Lucero MD Scribe Attestation: Homer Maldonado scribed for Guido Lucero MD on 06/29/18 at 1029. Scribe Documentation Reviewed: Yes Provider Attestation: The documentation as recorded by the Homer galan accurately reflects the service I personally performed and the decisions made by me, Guido Lucero MD
== END 2018-06-29 08:20 | disposition home or self-care (01) ==
LOC: ED 02:00
DX: F10.129 Alcohol abuse with intoxication, unspecified (principal); S09.90XA Unspecified injury of head, initial encounter; R51 Headache; R45.851 Suicidal ideations; W10.9XXA Fall (on) (from) unspecified stairs and steps, initial encounter; Y92.9 Unspecified place or not applicable; F17.210 Nicotine dependence, cigarettes, uncomplicated
CPT/HCPCS: 70450; 72125; 99282

== ENCOUNTER 2018-06-30 18:34 | Inpatient (IN) | payer MEDICARE, MEDICAID ==
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
[2018-06-30 21:13] LABS: Hematocrit 45 % (42-52); Hemoglobin 15.1 g/dl (14.0-18.0); Mean Corpuscular HGB Conc 34 g/dl (31-36); Mean Corpuscular Hemoglobin 31 pg (27-31); Mean Corpuscular Volume 90 fL (80-94); Mean Platelet Volume 6.7 um3 (7.4-10.4); Platelet Count 281 10^3/ul (150-450); Red Blood Count 4.97 10^6/ul (4.00-5.40); Red Cell Distribution Width 19 % (10.5-15)
[2018-06-30] MEDS ORDERED: LORazepam TAB(*) 1 MG PO ONE (21:16)
[2018-06-30 21:26] LABS: Urine Appearance Clear; Urine Bacteria Absent (Absent); Urine Bilirubin Negative (Negative); Urine Blood 2+ (Negative); Urine Color Yellow; Urine Glucose Negative (Negative); Urine Ketones Negative (Negative); Urine Nitrite Negative (Negative); Urine Protein Negative (Negative); Urine Red Blood Cell 2+(6-10/hpf) (Absent); Urine Specific Gravity 1.018 (1.010-1.030); Urine Urobilinogen Negative (Negative); Urine White Blood Cell Trace(0-5/hpf) (Absent)
[2018-06-30 21:29] LABS: ALT 73 U/L (7-52); AST 108 U/L (13-39); Albumin 4.5 g/dL (3.2-5.2); Albumin/Globulin Ratio 1.5 (1-3); Alkaline Phosphatase 74 U/L (34-104); Anion Gap 11 mmol/L (2-11); BUN/Creatinine Ratio 13.1 (8-20); Blood Urea Nitrogen 11 mg/dL (6-24); CO2 Carbon Dioxide 31 mmol/L (22-32); Calcium 8.7 mg/dL (8.6-10.3); Chloride 98 mmol/L (101-111); Creatine Kinase 105 U/L (10-223); EGFR Non-African American 93.9 (>60); Globulin 3.1 g/dL (2-4); Glucose 149 mg/dL (70-100); Potassium 4.2 mmol/L (3.5-5.0); Sodium 140 mmol/L (135-145); Total Protein 7.6 g/dL (6.4-8.9)
[2018-06-30 21:34] LABS: Barbiturates Urine Screen None Detected (None Detect); Benzodiazepine Urine Screen Presumptive Positive (None Detect); Urine Cannabinoids Screen None Detected (None Detect)
[2018-06-30 21:43] LABS: Acetaminophen < 15 mcg/mL; Alcohol 314 mg/dL (<10); Salicylate < 2.50 mg/dL (<30)
[2018-06-30 21:53] LABS: ABS Basophils 0.3 10^3/ul (0-0.2); ABS Eosinophils 0.1 10^3/ul (0-0.6); ABS Neutrophils 3.5 10^3/ul (1.5-7.7); Large Platelets Present; Lymphocytes % 50 % (25-47); Monocytes % 7 % (0-7); Neutrophil % 38 % (38-83)
[2018-06-30 21:57] LABS: TSH (Thyroid Stimulating Horm) 2.59 mcIU/mL (0.34-5.60)
[2018-07-01] MEDS ORDERED: Acetaminophen TAB* 325 MG ONE (00:51)
[2018-07-01] MEDS ORDERED: Acetaminophen TAB* 325 MG PO ONE (00:56)
[2018-07-01] MEDS ORDERED: Diazepam TAB(*) 5 MG PO ONE (04:33)
[2018-07-01] MEDS ORDERED: cloNIDine TAB* 0.1 MG PO ONE (04:33)
[2018-07-01] MEDS ORDERED: Al Hydrox/Mg Hydrox/Simet LIQ* 30 ML UDC PO PRN (09:03)
[2018-07-01] MEDS ORDERED: Nicotine Inhaler* 10 MG AMP INH ONE (09:39)
[2018-07-01] MEDS ORDERED: Mouth Piece, Nicotine* 1 EACH CARTRIDGE ONE (09:42)
[2018-07-01] MEDS ORDERED: Nicotine Inhaler* 10 MG AMP ONE (09:42)
[2018-07-01] MEDS: Mouth Piece, Nicotine* 1 EACH CARTRIDGE INH PRN (09:43)
[2018-07-01] MEDS ORDERED: buPROPion SR TAB.SR* 150 MG PO SCH (10:00)
[2018-07-01] MEDS ORDERED: Citalopram TAB* 20 MG PO SCH (10:00)
[2018-07-01] MEDS: LORazepam TAB(*) 1 MG PO SCH ×7 (10:45→22:12)
[2018-07-01] MEDS ORDERED: Loperamide CAP* 2 MG ONE (11:26)
[2018-07-01] MEDS ORDERED: Loperamide CAP* 2 MG PO ONE (11:28)
[2018-07-01] MEDS ORDERED: LORazepam TAB(*) 1 MG PO ONE (11:28)
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
[2018-07-01] MEDS: Omeprazole CAP* 20 MG PO SCH (12:59)
[2018-07-01] MEDS: Atorvastatin* 20 MG TAB PO SCH (12:59)
[2018-07-01] MEDS: Aspirin EC TAB* 81 MG TAB.EC PO SCH (12:59)
[2018-07-01] MEDS: Metoprolol Succinate XL TAB* 25 MG PO SCH (13:00)
[2018-07-01] MEDS: Ramipril CAP* 10 MG PO SCH (13:00)
[2018-07-01] MEDS: metFORMIN* 500 MG TAB PO SCH ×2 (13:00→20:13)
[2018-07-01] MEDS: Multivitamins/Minerals TAB PO SCH (13:00)
[2018-07-02] MEDS: metFORMIN* 500 MG TAB PO SCH ×2 (09:14→19:48)
[2018-07-02] MEDS: Acetaminophen TAB* 325 MG PO PRN ×2 (09:14→19:48)
[2018-07-02] MEDS: Folic Acid TAB* 1 MG PO SCH (09:15)
[2018-07-02] MEDS: Aspirin EC TAB* 81 MG TAB.EC PO SCH (09:16)
[2018-07-02] MEDS: Atorvastatin* 20 MG TAB PO SCH (09:16)
[2018-07-02] MEDS: Thiamine TAB* 100 MG TAB PO SCH (09:16)
[2018-07-02] MEDS: Multivitamins/Minerals TAB PO SCH (09:16)
[2018-07-02] MEDS: Ramipril CAP* 10 MG PO SCH (09:16)
[2018-07-02] MEDS: Metoprolol Succinate XL TAB* 25 MG PO SCH (09:16)
[2018-07-02] MEDS: Omeprazole CAP* 20 MG PO SCH (09:17)
[2018-07-02] MEDS: Venlafaxine EXT RELEASE CAP* 75 MG PO SCH (09:17)
[2018-07-02] MEDS: Loperamide CAP* 2 MG PO PRN ×2 (09:19→17:49)
[2018-07-02] MEDS: LORazepam TAB(*) 1 MG PO SCH ×2 (10:48→22:32)
--- NOTE | 2018-07-02 11:37 | PN ---
Subjective - Subjective Date of Service: 07/02/18 Service Type: 56562 Hosp care 15 min low complexity Subjective: Patient was seen by self, discussed with treatment team, chart was reviewed. Patient has been compliant with his medications, no reported side effects. Patient reports improvement in his withdrawal symptoms from alcohol and currently on WAM protocol. Patient sleeping has been fair with Ativan. Patient eating has been fair. Patient has been cooperative with staff. Patient behavior has been in control. Patient mood was less anxious and dysphoric and reports improvement in racing thoughts. Patient has been reporting no suicidal or homicidal ideation. No psychotic symptoms of delusions or hallucinations. Objective - Appearance Appearance: Healthy Appearing Dysmorphic Features: No Hygiene: Normal Grooming: Fairly Well Kept - Behavior Psychomotor Activities: Normal Exhibits Abnormal Movement: No - Attitude and Relatedness Attitude and Relatedness: Cooperative Eye Contact: Fair - Speech Quality: Unpressured Latencies: Normal Quantity: Appropriate - Mood Patient's Decription of Mood: "Anxious" - Affect Observed Affect: Fair Affect Consistent with: Dysphoria - Thought Process Patient's Thought Process: Coherent Thought Content: No Passive Wish, No Suicidal Planning, No Homicidal Ideation, No Paranoid Ideation - Sensorium Experiencing Hallucinations: No, Sensorium is Clear Type of Hallucinations: Visual: No, Auditory: No, Command: No - Level of Consciousness Level of Consciousness: Alert Orientation: Yes Intact, Yes Orientated to Time, Yes Orientated to Place, Yes Orientated to Person - Impulse Control Impulse Control: Intact - Insight and Judgement Insight and Judgement: Fair - Group Participation Particating in Group Activities: Yes - Medication Management Medication Management Adherence: Yes Assessment - Assessment Merits Inpatient Hospitalization: For Immediate Safety, For Stabilization, For Discharge Planning Inpatient DSM-V Dx: F32.89 Clinical Impression: Patient with history of Alcohol Use Disorder, Depression and ? Korsakoff Dementia. Patient currently admitted due to worsening of alcohol use, depression, suicidal thoughts, anxiety and alcohol related withdrawal. Patient has also struggled with his heavy alcohol use and recent move to [place]. Patient is a danger to self if discharged hence will be stabilized on inpatient unit with medication adjustments and therapy. Plan - Plan Treatment Plan: Name: SIM DAWN Birthdate: 1960 [id number] - Patient continues to be hospitalized due to recent suicidal thoughts with plan , alcohol abuse, depression and anxiety. - Patient's medications were continued with Effexor XR 75 mg PO M for depression, anxiety and on [facility] protocol. Patient will be started on Acamprosate as more at ease with acute detox from alcohol withdrawal. - Patient will be monitored for improvement and side effects. Risk and benefits were discussed. - Patient was encouraged to continue his participation in the milieu, group and individual therapy. Medications: Current Medications Acetaminophen (Tylenol Tab*) 650 mg PO Q4H PRN PRN Reason: PAIN Last Admin: 07/02/18 09:14 Dose: 650 mg Al Hydrox/Mg Hydrox/Simethicone (Maalox Plus*) 30 ml PO Q4H PRN PRN Reason: INDIGESTION Aspirin (Aspirin Ec Tab*) 81 mg PO DAILY [facility] Last Admin: 07/02/18 09:16 Dose: 81 mg Atorvastatin Calcium (Lipitor*) 20 mg PO DAILY [facility] Last Admin: 07/02/18 09:16 Dose: 20 mg Device (Nicotine Mouth Piece*) 1 each INH .USE WITH NICOTROL PRN PRN Reason: CRAVING Last Admin: 07/01/18 09:43 Dose: 1 each Folic Acid (Folvite Tab*) 1 mg PO DAILY [facility] Last Admin: 07/02/18 09:15 Dose: 1 mg Loperamide HCl (Imodium Cap*) 2 mg PO .PRN PRN PRN Reason: AFTER EACH UNFORMED STOOLE Last Admin: 07/02/18 09:19 Dose: 2 mg Lorazepam (Ativan Tab(*)) 0 - [address] [facility] PROTOCOL [facility]; Protocol Last Admin: 07/02/18 10:48 Dose: 2 mg Metformin HCl (Glucophage*) 500 mg PO BID [facility] Last Admin: 07/02/18 09:14 Dose: 500 mg Metoprolol Succinate (Toprol Xl Tab*) 25 mg PO DAILY [facility] Last Admin: 07/02/18 09:16 Dose: 25 mg Multivitamins/Minerals (Theragran/Minerals Tab*) 1 tab PO DAILY [facility] Last Admin: 07/02/18 09:16 Dose: 1 tab Omeprazole (Prilosec Cap*) 20 mg PO DAILY [facility] Last Admin: 07/02/18 09:17 Dose: 20 mg Ramipril (Altace Cap*) 10 mg PO DAILY [facility] Last Admin: 07/02/18 09:16 Dose: 10 mg Thiamine HCl (Vitamin B-1 Tab*) 100 mg PO DAILY [facility] Last Admin: 07/02/18 09:16 Dose: 100 mg Venlafaxine HCl (Effexor Xr Cap*) 75 mg PO DAILY [facility] Last Admin: 07/02/18 09:17 Dose: 75 mg
[2018-07-02] MEDS: Mouth Piece, Nicotine* 1 EACH CARTRIDGE INH PRN (19:50)
[2018-07-03] MEDS: LORazepam TAB(*) 1 MG PO SCH ×3 (05:30→22:30)
[2018-07-03] MEDS: Atorvastatin* 20 MG TAB PO SCH (08:50)
[2018-07-03] MEDS: Ramipril CAP* 10 MG PO SCH (08:50)
[2018-07-03] MEDS: Metoprolol Succinate XL TAB* 25 MG PO SCH (08:50)
[2018-07-03] MEDS: Thiamine TAB* 100 MG TAB PO SCH (08:51)
[2018-07-03] MEDS: Omeprazole CAP* 20 MG PO SCH (08:51)
[2018-07-03] MEDS: Acetaminophen TAB* 325 MG PO PRN (08:51)
[2018-07-03] MEDS: metFORMIN* 500 MG TAB PO SCH ×2 (08:52→22:19)
[2018-07-03] MEDS: Folic Acid TAB* 1 MG PO SCH (08:52)
[2018-07-03] MEDS: Venlafaxine EXT RELEASE CAP* 75 MG PO SCH (08:52)
[2018-07-03] MEDS: Aspirin EC TAB* 81 MG TAB.EC PO SCH (08:53)
[2018-07-03] MEDS: Multivitamins/Minerals TAB PO SCH (08:53)
[2018-07-03] MEDS ORDERED: Nicotine Inhaler* 10 MG AMP ONE ×2 (08:57→15:47)
--- NOTE | 2018-07-03 11:53 | PN ---
Subjective - Subjective Date of Service: 07/03/18 Service Type: 07047 [facility] care 15 min low complexity Subjective: Patient was seen by self, discussed with treatment team, chart was reviewed. Patient has been compliant with his medications, no reported side effects. Patient reports improvement in his withdrawal symptoms from alcohol and going through WAM protocol. Patient sleeping has been fair. Patient eating has been fair. Patient wants to start Acomprosate to help with alcohol craving and urges. Patient has been cooperative with staff other than yesterday he was upset when he did not receive Ativan as he did not score on WAM. Patient behavior has been in control otherwise and willing to transition to inpatient rehab. Patient mood was less anxious and dysphoric and reports continued improvement in racing thoughts. Patient has been reporting no suicidal or homicidal ideation. No psychotic symptoms of delusions or hallucinations. Objective - Appearance Appearance: Healthy Appearing Dysmorphic Features: No Hygiene: Normal Grooming: Fairly Well Kept - Behavior Psychomotor Activities: Normal - bilateral upper extremety tremors - Attitude and Relatedness Attitude and Relatedness: Cooperative Eye Contact: Fair - Speech Quality: Unpressured Latencies: Normal Quantity: Appropriate - Mood Patient's Decription of Mood: "Fine" - Affect Observed Affect: Tense Affect Consistent with: Euthymia - anxious - Thought Process Patient's Thought Process: Coherent, Goal Directed Thought Content: No Passive Wish, No Suicidal Planning, No Homicidal Ideation, No Paranoid Ideation - Sensorium Experiencing Hallucinations: No, Sensorium is Clear Type of Hallucinations: Visual: No, Auditory: No, Command: No - Level of Consciousness Level of Consciousness: Alert Orientation: Yes Intact, Yes Orientated to Time, Yes Orientated to Place, Yes Orientated to Person - Impulse Control Impulse Control: Intact - Insight and Judgement Insight and Judgement: Fair - Group Participation Particating in Group Activities: Yes - Medication Management Medication Management Adherence: Yes Assessment - Assessment Merits Inpatient Hospitalization: For Immediate Safety, For Stabilization, For Discharge Planning Inpatient DSM-V Dx: F32.89 Clinical Impression: Patient with history of Alcohol Use Disorder, Depression and ? Korsakoff Dementia. Patient currently admitted due to worsening of alcohol use, depression, suicidal thoughts, anxiety and alcohol related withdrawal. Patient has also struggled with his heavy alcohol use and recent move to [place]. Patient is a danger to self if discharged hence will be stabilized on inpatient unit with medication adjustments and therapy. Plan - Plan Treatment Plan: Name: SIM DAWN Birthdate: 1960 [id number] - Patient continues to be hospitalized due to recent suicidal thoughts with plan , alcohol abuse, depression and anxiety. - Patient's medications were continued with Effexor XR 75 mg PO QAM for depression, anxiety and on [facility] protocol to help with alcohol withdrawal. Patient will be started on Acamprosate if continues to struggle with cravings and urges after completion of [facility] protocol. - Patient will be monitored for improvement and side effects. Risk and benefits were discussed. - Patient was encouraged to continue his participation in the milieu, group and individual therapy. Medications: Current Medications Acetaminophen (Tylenol Tab*) 650 mg PO Q4H PRN PRN Reason: PAIN Last Admin: 07/03/18 08:51 Dose: 650 mg Al Hydrox/Mg Hydrox/Simethicone (Maalox Plus*) 30 ml PO Q4H PRN PRN Reason: INDIGESTION Aspirin (Aspirin Ec Tab*) 81 mg PO DAILY [facility] Last Admin: 07/03/18 08:53 Dose: 81 mg Atorvastatin Calcium (Lipitor*) 20 mg PO DAILY [facility] Last Admin: 07/03/18 08:50 Dose: 20 mg Device (Nicotine Mouth Piece*) 1 each INH .USE WITH NICOTROL PRN PRN Reason: CRAVING Last Admin: 07/02/18 19:50 Dose: 1 each Folic Acid (Folvite Tab*) 1 mg PO DAILY [facility] Last Admin: 07/03/18 08:52 Dose: 1 mg Loperamide HCl (Imodium Cap*) 2 mg PO .PRN PRN PRN Reason: AFTER EACH UNFORMED STOOLE Last Admin: 07/02/18 17:49 Dose: 2 mg Lorazepam (Ativan Tab(*)) 0 - 6 mg PO .PER [facility] PROTOCOL [facility]; Protocol Last Admin: 07/03/18 05:30 Dose: 2 mg Metformin HCl (Glucophage*) 500 mg PO BID [facility] Last Admin: 07/03/18 08:52 Dose: 500 mg Metoprolol Succinate (Toprol Xl Tab*) 25 mg PO DAILY [facility] Last Admin: 07/03/18 08:50 Dose: 25 mg Multivitamins/Minerals (Theragran/Minerals Tab*) 1 tab PO DAILY [facility] Last Admin: 07/03/18 08:53 Dose: 1 tab Omeprazole (Prilosec Cap*) 20 mg PO DAILY [facility] Last Admin: 07/03/18 08:51 Dose: 20 mg Ramipril (Altace Cap*) 10 mg PO DAILY [facility] Last Admin: 07/03/18 08:50 Dose: 10 mg Thiamine HCl (Vitamin B-1 Tab*) 100 mg PO DAILY [facility] Last Admin: 07/03/18 08:51 Dose: 100 mg Venlafaxine HCl (Effexor Xr Cap*) 75 mg PO DAILY [facility] Last Admin: 07/03/18 08:52 Dose: 75 mg
[2018-07-04] MEDS: Atorvastatin* 20 MG TAB PO SCH (09:24)
[2018-07-04] MEDS: Omeprazole CAP* 20 MG PO SCH (09:24)
[2018-07-04] MEDS: Multivitamins/Minerals TAB PO SCH (09:24)
[2018-07-04] MEDS: Aspirin EC TAB* 81 MG TAB.EC PO SCH (09:24)
[2018-07-04] MEDS: Metoprolol Succinate XL TAB* 25 MG PO SCH (09:24)
[2018-07-04] MEDS: Venlafaxine EXT RELEASE CAP* 75 MG PO SCH (09:24)
[2018-07-04] MEDS: Ramipril CAP* 10 MG PO SCH (09:25)
[2018-07-04] MEDS: Thiamine TAB* 100 MG TAB PO SCH (09:25)
[2018-07-04] MEDS: Folic Acid TAB* 1 MG PO SCH (09:25)
[2018-07-04] MEDS: metFORMIN* 500 MG TAB PO SCH ×2 (09:25→22:11)
[2018-07-04] MEDS ORDERED: Nicotine Inhaler* 10 MG AMP ONE ×2 (09:28→18:07)
[2018-07-04] MEDS: LORazepam TAB(*) 1 MG PO SCH (11:19)
[2018-07-04] MEDS ORDERED: Nicotine GUM* 2 MG PO PRN (19:14)
[2018-07-04] MEDS: Nicotine Patch Removal NOTE PATCH OFF SCH (22:25)
[2018-07-05] MEDS ORDERED: traZODone TAB* 50 MG TAB PO PRN (04:55)
[2018-07-05] MEDS: LORazepam TAB(*) 1 MG PO SCH (05:18)
[2018-07-05] MEDS: Atorvastatin* 20 MG TAB PO SCH (09:06)
[2018-07-05] MEDS: Metoprolol Succinate XL TAB* 25 MG PO SCH (09:06)
[2018-07-05] MEDS: Venlafaxine EXT RELEASE CAP* 75 MG PO SCH (09:06)
[2018-07-05] MEDS: Thiamine TAB* 100 MG TAB PO SCH (09:07)
[2018-07-05] MEDS: metFORMIN* 500 MG TAB PO SCH ×2 (09:07→21:28)
[2018-07-05] MEDS: Aspirin EC TAB* 81 MG TAB.EC PO SCH (09:07)
[2018-07-05] MEDS: Folic Acid TAB* 1 MG PO SCH (09:07)
[2018-07-05] MEDS: Ramipril CAP* 10 MG PO SCH (09:07)
[2018-07-05] MEDS: Multivitamins/Minerals TAB PO SCH (09:07)
[2018-07-05] MEDS: Nicotine PATCH 21 MG/24 HR* PATCH TRANSDERM SCH (09:08)
[2018-07-05] MEDS: Omeprazole CAP* 20 MG PO SCH (09:08)
--- NOTE | 2018-07-05 16:08 | PN ---
Subjective - Subjective Date of Service: 07/05/18 Subjective: Still scoring on the WAM, he c/o diarrhea (that he attributes to the Metformin) and visual hallucinations of relatives. However, he reports overall lower distress level, improvement in mood and anxiety. He is interested in trial of Campral, I encouraged him to discuss it with Dr. Snell in AM. Per staff, he is adherent to unit's routines. Objective - Appearance Appearance: Obese Dysmorphic Features: No Hygiene: Normal Grooming: Disheveled - Behavior Psychomotor Activities: Normal Exhibits Abnormal Movement: No - Attitude and Relatedness Attitude and Relatedness: Cooperative Eye Contact: Fair - Speech Quality: Unpressured Latencies: Normal Quantity: Appropriate - Mood Patient's Decription of Mood: "Okay" - Affect Observed Affect: Constricted Affect Consistent with: Dysphoria - Thought Process Patient's Thought Process: Coherent, Goal Directed Thought Content: No Passive Wish, No Suicidal Planning, No Homicidal Ideation, No Paranoid Ideation - Sensorium Experiencing Hallucinations: Yes Type of Hallucinations: Visual: Yes, Auditory: No, Command: No - Level of Consciousness Level of Consciousness: Alert Orientation: Yes Intact - Impulse Control Impulse Control: Intact - Insight and Judgement Insight and Judgement: Poor - Group Participation Particating in Group Activities: Yes - Medication Management Medication Management Adherence: Yes Assessment - Assessment Merits Inpatient Hospitalization: For Ongoing Evaluation, Consolidate Improvements Inpatient DSM-V Dx: F32.89 Clinical Impression: Patient with history of Alcohol Use Disorder, Depression and ? Korsakoff Dementia. Patient currently admitted due to worsening of alcohol use, depression, suicidal thoughts, anxiety and alcohol related withdrawal. Patient has also struggled with his heavy alcohol use and recent move to [place]. Patient is a danger to self if discharged hence will be stabilized on inpatient unit with medication adjustments and therapy. Progressing well through detoxification, denying suicidality and lavon for safety. Plan - Plan Treatment Plan: Name: SIM DAWN Birthdate: 1960 [id number] Medications: Current Medications Acetaminophen (Tylenol Tab*) 650 mg PO Q4H PRN PRN Reason: PAIN Last Admin: 07/03/18 08:51 Dose: 650 mg Al Hydrox/Mg Hydrox/Simethicone (Maalox Plus*) 30 ml PO Q4H PRN PRN Reason: INDIGESTION Aspirin (Aspirin Ec Tab*) 81 mg PO DAILY [facility] Last Admin: 07/05/18 09:07 Dose: 81 mg Atorvastatin Calcium (Lipitor*) 20 mg PO DAILY [facility] Last Admin: 07/05/18 09:06 Dose: 20 mg Device (Nicotine Mouth Piece*) 1 each INH .USE WITH NICOTROL PRN PRN Reason: CRAVING Last Admin: 07/02/18 19:50 Dose: 1 each Folic Acid (Folvite Tab*) 1 mg PO DAILY [facility] Last Admin: 07/05/18 09:07 Dose: 1 mg Loperamide HCl (Imodium Cap*) 2 mg PO .PRN PRN PRN Reason: AFTER EACH UNFORMED STOOLE Last Admin: 07/02/18 17:49 Dose: 2 mg Lorazepam (Ativan Tab(*)) 0 - 6 mg PO .PER [facility] PROTOCOL [facility]; Protocol Last Admin: 07/05/18 05:18 Dose: 2 mg Metformin HCl (Glucophage*) 500 mg PO BID [facility] Last Admin: 07/05/18 09:07 Dose: 500 mg Metoprolol Succinate (Toprol Xl Tab*) 25 mg PO DAILY [facility] Last Admin: 07/05/18 09:06 Dose: 25 mg Multivitamins/Minerals (Theragran/Minerals Tab*) 1 tab PO DAILY [facility] Last Admin: 07/05/18 09:07 Dose: 1 tab Nicotine (Nicotine Inhaler*) 10 mg INH Q2H PRN PRN Reason: CRAVING Nicotine (Nicotine Patch 21 Mg/24 Hr*) 1 patch TRANSDERM DAILY [facility] Last Admin: 07/05/18 09:08 Dose: 1 patch Nicotine Polacrilex (Nicotine Gum*) 2 mg PO Q2H PRN PRN Reason: CRAVING Omeprazole (Prilosec Cap*) 20 mg PO DAILY [facility] Last Admin: 07/05/18 09:08 Dose: 20 mg Pharmacy Profile Note (Nicotine Patch Removal Note*) 1 note PATCH OFF 2100 [facility] Last Admin: 07/04/18 22:25 Dose: Not Given Ramipril (Altace Cap*) 10 mg PO DAILY [facility] Last Admin: 07/05/18 09:07 Dose: 10 mg Thiamine HCl (Vitamin B-1 Tab*) 100 mg PO DAILY [facility] Last Admin: 07/05/18 09:07 Dose: 100 mg Trazodone HCl (Desyrel Tab*) 50 mg PO ONCE PRN PRN Reason: INSOMNIA Stop: 07/06/18 04:54 Last Admin: 07/05/18 05:00 Dose: 50 mg Venlafaxine HCl (Effexor Xr Cap*) 75 mg PO DAILY [facility] Last Admin: 07/05/18 09:06 Dose: 75 mg - Discharge Plan Discharge Plan: Drug/Alcohol Rehab Outpatient Program: [facility]
[2018-07-05] MEDS: Nicotine Patch Removal NOTE PATCH OFF SCH (21:50)
[2018-07-06] MEDS: Thiamine TAB* 100 MG TAB PO SCH (08:34)
[2018-07-06] MEDS: Atorvastatin* 20 MG TAB PO SCH (08:34)
[2018-07-06] MEDS: Multivitamins/Minerals TAB PO SCH (08:34)
[2018-07-06] MEDS: metFORMIN* 500 MG TAB PO SCH ×2 (08:34→20:47)
[2018-07-06] MEDS: Aspirin EC TAB* 81 MG TAB.EC PO SCH (08:34)
[2018-07-06] MEDS: Folic Acid TAB* 1 MG PO SCH (08:34)
[2018-07-06] MEDS: Ramipril CAP* 10 MG PO SCH (08:34)
[2018-07-06] MEDS: Omeprazole CAP* 20 MG PO SCH (08:34)
[2018-07-06] MEDS: Metoprolol Succinate XL TAB* 25 MG PO SCH (08:34)
[2018-07-06] MEDS: Venlafaxine EXT RELEASE CAP* 75 MG PO SCH (08:34)
[2018-07-06] MEDS: Nicotine PATCH 21 MG/24 HR* PATCH TRANSDERM SCH (08:36)
[2018-07-06] MEDS ORDERED: traZODone TAB* 50 MG TAB PO PRN (11:03)
--- NOTE | 2018-07-06 13:44 | PN ---
[facility]: Group Therapy Note - Service Type Service Type: [id number] Group Psychotherapy - Cognitive Behavioral Group Therapy ( CBT):Patient was attentive and participatory in CBT programming this morning, and remained in good behavioral control. Patient expressed positive insights regarding relevant treatment interventions and goals.
[2018-07-06] MEDS ORDERED: LORazepam TAB(*) 1 MG PO PRN (14:56)
--- NOTE | 2018-07-06 15:05 | PN ---
Subjective - Subjective Date of Service: 07/06/18 Service Type: [id number] Hosp care 15 min low complexity Subjective: Patient was seen by self, discussed with treatment team, chart was reviewed. Patient has been compliant with his medications, no reported side effects. Patient reports improvement in withdrawal symptoms but do report some vivid dreams and hypnogogic hallucinations at bedtime before falling a sleep. Patient has history of sleep apnea that he has used CPAP for. Patient reports that Trazodone helped with his sleep and was asking for it as standing medication. Patient was acceptive at a rehab and likely will be discharged tomorrow to accepting facility. Patient eating has been fair. Patient has been cooperative with staff. Patient behavior has been in control. Patient mood was less anxious and less dysphoric and reported significant improvement in racing thoughts. Patient has been reporting no suicidal or homicidal ideation. No psychotic delusions or hallucinations. Objective - Appearance Appearance: Healthy Appearing Dysmorphic Features: No Hygiene: Normal Grooming: Well Kept - Behavior Psychomotor Activities: Normal Exhibits Abnormal Movement: No - Attitude and Relatedness Attitude and Relatedness: Cooperative Eye Contact: Fair - Speech Quality: Unpressured Latencies: Normal Quantity: Appropriate - Mood Patient's Decription of Mood: "Anxious" - Affect Observed Affect: Fair Affect Consistent with: Euthymia - Thought Process Patient's Thought Process: Coherent Thought Content: No Passive Wish, No Suicidal Planning, No Homicidal Ideation, No Paranoid Ideation - Sensorium Experiencing Hallucinations: No, Sensorium is Clear Type of Hallucinations: Visual: No, Auditory: No, Command: No - Level of Consciousness Level of Consciousness: Alert Orientation: Yes Intact, Yes Orientated to Time, Yes Orientated to Place, Yes Orientated to Person - Impulse Control Impulse Control: Intact - Insight and Judgement Insight and Judgement: Fair - Group Participation Particating in Group Activities: Yes - Medication Management Medication Management Adherence: Yes Assessment - Assessment Merits Inpatient Hospitalization: For Immediate Safety, For Stabilization, For Discharge Planning Inpatient DSM-V Dx: F32.89 Clinical Impression: Patient with history of Alcohol Use Disorder, Depression and ? Korsakoff Dementia. Patient currently admitted due to worsening of alcohol use, depression, suicidal thoughts, anxiety and alcohol related withdrawal. Patient has also struggled with his heavy alcohol use and recent move to [place]. Patient is a danger to self if discharged hence will be stabilized on inpatient unit with medication adjustments and therapy. Progressing well through detoxification, denying suicidality and lavon for safety. Plan - Plan Treatment Plan: Name: SIM DAWN Birthdate: 1960 [id number] - Patient continues to be hospitalized due to recent suicidal thoughts with plan , alcohol abuse, depression and anxiety. - Patient's medications were continued with Effexor XR 75 mg PO QAM for depression, anxiety and Ativan 1mg PO Q8HRS PRN alcohol withdrawal. Patient will be started on Acamprosate if continues to struggle with cravings post acute withdrawal. Patient Trazodone was changed to 50 mg PO QHS. - Patient will be monitored for improvement and side effects. Risk and benefits were discussed. - Patient was encouraged to continue his participation in the milieu, group and individual therapy. Medications: Current Medications Acetaminophen (Tylenol Tab*) 650 mg PO Q4H PRN PRN Reason: PAIN Last Admin: 07/03/18 08:51 Dose: 650 mg Al Hydrox/Mg Hydrox/Simethicone (Maalox Plus*) 30 ml PO Q4H PRN PRN Reason: INDIGESTION Aspirin (Aspirin Ec Tab*) 81 mg PO DAILY [facility] Last Admin: 07/06/18 08:34 Dose: 81 mg Atorvastatin Calcium (Lipitor*) 20 mg PO DAILY [facility] Last Admin: 07/06/18 08:34 Dose: 20 mg Device (Nicotine Mouth Piece*) 1 each INH .USE WITH NICOTROL PRN PRN Reason: CRAVING Last Admin: 07/02/18 19:50 Dose: 1 each Folic Acid (Folvite Tab*) 1 mg PO DAILY [facility] Last Admin: 07/06/18 08:34 Dose: 1 mg Lorazepam (Ativan Tab(*)) 1 mg PO Q8H PRN PRN Reason: alcohol withdrawal Metformin HCl (Glucophage*) 500 mg PO BID [facility] Last Admin: 07/06/18 08:34 Dose: 500 mg Metoprolol Succinate (Toprol Xl Tab*) 25 mg PO DAILY [facility] Last Admin: 07/06/18 08:34 Dose: 25 mg Multivitamins/Minerals (Theragran/Minerals Tab*) 1 tab PO DAILY [facility] Last Admin: 07/06/18 08:34 Dose: 1 tab Nicotine (Nicotine Inhaler*) 10 mg INH Q2H PRN PRN Reason: CRAVING Nicotine (Nicotine Patch 21 Mg/24 Hr*) 1 patch TRANSDERM DAILY [facility] Last Admin: 07/06/18 08:36 Dose: 1 patch Nicotine Polacrilex (Nicotine Gum*) 2 mg PO Q2H PRN PRN Reason: CRAVING Omeprazole (Prilosec Cap*) 20 mg PO DAILY [facility] Last Admin: 07/06/18 08:34 Dose: 20 mg Pharmacy Profile Note (Nicotine Patch Removal Note*) 1 note PATCH OFF 2100 [facility] Last Admin: 07/05/18 21:50 Dose: 1 note Ramipril (Altace Cap*) 10 mg PO DAILY [facility] Last Admin: 07/06/18 08:34 Dose: 10 mg Thiamine HCl (Vitamin B-1 Tab*) 100 mg PO DAILY [facility] Last Admin: 07/06/18 08:34 Dose: 100 mg Trazodone HCl (Desyrel Tab*) 50 mg PO BEDTIME [facility] Venlafaxine HCl (Effexor Xr Cap*) 75 mg PO DAILY [facility] Last Admin: 07/06/18 08:34 Dose: 75 mg
[2018-07-06] MEDS: traZODone TAB* 50 MG TAB PO SCH (20:47)
[2018-07-06] MEDS: Nicotine Patch Removal NOTE PATCH OFF SCH (21:58)
[2018-07-07] MEDS: Multivitamins/Minerals TAB PO SCH (07:56)
[2018-07-07] MEDS: Aspirin EC TAB* 81 MG TAB.EC PO SCH (07:56)
[2018-07-07] MEDS: Atorvastatin* 20 MG TAB PO SCH (07:56)
[2018-07-07] MEDS: metFORMIN* 500 MG TAB PO SCH ×2 (07:56→20:46)
[2018-07-07] MEDS: Folic Acid TAB* 1 MG PO SCH (07:56)
[2018-07-07] MEDS: Metoprolol Succinate XL TAB* 25 MG PO SCH (07:56)
[2018-07-07] MEDS: Nicotine PATCH 21 MG/24 HR* PATCH TRANSDERM SCH (07:56)
[2018-07-07] MEDS: Omeprazole CAP* 20 MG PO SCH (07:57)
[2018-07-07] MEDS: Venlafaxine EXT RELEASE CAP* 75 MG PO SCH (07:57)
[2018-07-07] MEDS: Ramipril CAP* 10 MG PO SCH (07:57)
[2018-07-07] MEDS: Thiamine TAB* 100 MG TAB PO SCH (07:57)
[2018-07-07] MEDS ORDERED: Ramipril CAP* 10 MG PO ONE (12:53)
--- NOTE | 2018-07-07 12:56 | PN ---
Subjective - Subjective Date of Service: 07/07/18 Subjective: Patient continues to improve in his symptoms of depression and easing through alcohol withdrawal protocol. Patient in the process of being referred to inpatient rehab. Assessment - Assessment Inpatient DSM-V Dx: F32.89 Clinical Impression: Patient with history of Alcohol Use Disorder, Depression and ? Korsakoff Dementia. Patient currently admitted due to worsening of alcohol use, depression, suicidal thoughts, anxiety and alcohol related withdrawal. Patient has also struggled with his heavy alcohol use and recent move to [place]. Patient is a danger to self if discharged hence will be stabilized on inpatient unit with medication adjustments and therapy. Progressing well through detoxification, denying suicidality and lavon for safety. Plan - Plan Treatment Plan: Name: SIM DAWN Birthdate: 1960 [id number] - Patient continues to be hospitalized due to recent suicidal thoughts with plan , alcohol abuse, depression and anxiety. - Patient's medications were continued with Effexor XR 75 mg PO QAM for depression, anxiety and Ativan 1mg PO Q8HRS PRN alcohol withdrawal. Patient will be started on Acamprosate if continues to struggle with cravings post acute withdrawal. Patient Trazodone was changed to 50 mg PO QHS. - Patient will be monitored for improvement and side effects. Risk and benefits were discussed. - Patient was encouraged to continue his participation in the milieu, group and individual therapy. Medications: Current Medications Acetaminophen (Tylenol Tab*) 650 mg PO Q4H PRN PRN Reason: PAIN Last Admin: 07/03/18 08:51 Dose: 650 mg Al Hydrox/Mg Hydrox/Simethicone (Maalox Plus*) 30 ml PO Q4H PRN PRN Reason: INDIGESTION Aspirin (Aspirin Ec Tab*) 81 mg PO DAILY [facility] Last Admin: 07/07/18 07:56 Dose: 81 mg Atorvastatin Calcium (Lipitor*) 20 mg PO DAILY [facility] Last Admin: 07/07/18 07:56 Dose: 20 mg Device (Nicotine Mouth Piece*) 1 each INH .USE WITH NICOTROL PRN PRN Reason: CRAVING Last Admin: 07/02/18 19:50 Dose: 1 each Folic Acid (Folvite Tab*) 1 mg PO DAILY [facility] Last Admin: 07/07/18 07:56 Dose: 1 mg Lorazepam (Ativan Tab(*)) 1 mg PO Q8H PRN PRN Reason: alcohol withdrawal Metformin HCl (Glucophage*) 500 mg PO BID [facility] Last Admin: 07/07/18 07:56 Dose: 500 mg Metoprolol Succinate (Toprol Xl Tab*) 25 mg PO DAILY [facility] Last Admin: 07/07/18 07:56 Dose: 25 mg Multivitamins/Minerals (Theragran/Minerals Tab*) 1 tab PO DAILY [facility] Last Admin: 07/07/18 07:56 Dose: 1 tab Nicotine (Nicotine Inhaler*) 10 mg INH Q2H PRN PRN Reason: CRAVING Nicotine (Nicotine Patch 21 Mg/24 Hr*) 1 patch TRANSDERM DAILY [facility] Last Admin: 07/07/18 07:56 Dose: 1 patch Nicotine Polacrilex (Nicotine Gum*) 2 mg PO Q2H PRN PRN Reason: CRAVING Omeprazole (Prilosec Cap*) 20 mg PO DAILY [facility] Last Admin: 07/07/18 07:57 Dose: 20 mg Pharmacy Profile Note (Nicotine Patch Removal Note*) 1 note PATCH OFF 2099 [facility] Last Admin: 07/06/18 21:58 Dose: 1 note Ramipril (Altace Cap*) 10 mg PO DAILY [facility] Last Admin: 07/07/18 07:57 Dose: 10 mg Thiamine HCl (Vitamin B-1 Tab*) 100 mg PO DAILY [facility] Last Admin: 07/07/18 07:57 Dose: 100 mg Trazodone HCl (Desyrel Tab*) 50 mg PO BEDTIME [facility] Last Admin: 07/06/18 20:47 Dose: 50 mg Venlafaxine HCl (Effexor Xr Cap*) 75 mg PO DAILY [facility] Last Admin: 07/07/18 07:57 Dose: 75 mg
[2018-07-07] MEDS: Nicotine Inhaler* 10 MG AMP INH PRN (14:38)
[2018-07-07] MEDS: traZODone TAB* 50 MG TAB PO SCH (20:46)
[2018-07-07] MEDS: Nicotine Patch Removal NOTE PATCH OFF SCH (20:46)
[2018-07-08 07:56] VITALS: BP 155/82
[2018-07-08] MEDS: Metoprolol Succinate XL TAB* 25 MG PO SCH (08:27)
[2018-07-08] MEDS: Atorvastatin* 20 MG TAB PO SCH (08:27)
[2018-07-08] MEDS: Folic Acid TAB* 1 MG PO SCH (08:27)
[2018-07-08] MEDS: Aspirin EC TAB* 81 MG TAB.EC PO SCH (08:28)
[2018-07-08] MEDS: Venlafaxine EXT RELEASE CAP* 75 MG PO SCH (08:28)
[2018-07-08] MEDS: Multivitamins/Minerals TAB PO SCH (08:28)
[2018-07-08] MEDS: Thiamine TAB* 100 MG TAB PO SCH (08:28)
[2018-07-08] MEDS: Omeprazole CAP* 20 MG PO SCH (08:28)
[2018-07-08] MEDS: metFORMIN* 500 MG TAB PO SCH (08:28)
[2018-07-08] MEDS: Nicotine PATCH 21 MG/24 HR* PATCH TRANSDERM SCH (08:29)
[2018-07-08] MEDS: Nicotine Inhaler* 10 MG AMP INH PRN (08:35)
[2018-07-08] MEDS: Ramipril CAP* 10 MG PO SCH ×2 (08:59→11:41)
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
== END 2018-07-08 11:49 | disposition short-term general hospital (02) | DRG 885 ==
LOC: ED 18:34 → BSU 07-01 09:03 → ED 07-01 11:03
PROVIDERS: ADMIT Psychiatry & Neurology Psychiatry; ATTEND Psychiatry & Neurology Psychiatry
DX: F32.89 Other specified depressive episodes (principal); F10.239 Alcohol dependence with withdrawal, unspecified; R45.851 Suicidal ideations; E11.9 Type 2 diabetes mellitus without complications; I11.9 Hypertensive heart disease without heart failure; Y90.8 Blood alcohol level of 240 mg/100 ml or more; F11.21 Opioid dependence, in remission; F14.21 Cocaine dependence, in remission; I25.10 Atherosclerotic heart disease of native coronary artery without angina pectoris; E78.00 Pure hypercholesterolemia, unspecified; Z95.5 Presence of coronary angioplasty implant and graft; Z88.2 Allergy status to sulfonamides; Z81.8 Family history of other mental and behavioral disorders; Z81.1 Family history of alcohol abuse and dependence
CPT/HCPCS: 36415; 70450; 72125; 80053; 80307; 80320; 80329; 81003; 81015; 82550; 84443; 85025; 85060; 87086; 90853; 99222; 99231; 99238; 99282; 99284; A9270-GY; G0480

== ENCOUNTER 2018-12-28 18:20 | Emergency (ER) | payer MEDICARE, MEDICAID ==
[2018-12-28] MEDS ORDERED: Nystatin CREAM* 15 GM TUBE TOPICAL ONE (18:41)
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
--- OUTSIDE RECORDS SUMMARY | 2018-12-28 18:54 | XMS REPORT | Continuity of Care Document ---
:1960 External Reference #:[id number] Author Name Cori Geronimo Care Team Providers Name Role Phone Jigna Cuello M.D. Primary Care Physician Unavailable Payers Date Identification Numbers Payment Provider Subscriber Policy Number: [id number] Medicare Sim Chun PayID: [id number] [address] [place] [address] Policy Number: [id number] Medicaid Sim Chun Group Name: 1 [address] PayID: [id number] [place] [address] Advance Directives Description No Information Available Problems Date Description Provider Status Onset: 10/12/2013 Benign essential hypertension Raciel Rm M.D., [facility], Active [facility] Onset: 10/12/2013 Chronic ischemic heart disease Raciel Rm M.D., [facility], Active [facility] Onset: 10/12/2013 Chest pain Raciel Rm M.D., [facility], Active [facility] Onset: 10/12/2013 Hyperlipidemia Raciel Rm M.D., [facility], Active [facility] Onset: 07/27/2018 Multi vessel coronary artery Anju Phelps M.D. 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 mechanic on disability currently ETOH Use Consumes 2 pints of liquor per day ETOH Use Has consumed alcohol Sober as of 07/23/18 in the past Recreational Drug Use Denies Drug Use Tobacco Use Start: Unknown Light tobacco smoker (10 or fewer cigarettes/day) Recreational Drug Use Former Drug User Smoking Status Reviewed: 12/01/18 Light tobacco smoker (10 or fewer cigarettes/day) Exercise Type/Frequency Exercises regularly Exercise Type/Frequency Walks 5 times a week 5 mile a day and gym Allergies, Adverse Reactions, Alerts Date Description Reaction Status Severity Comments 10/12/2013 Donepezil nightmares, hallucinations Active Severe 07/23/2018 Acamprosate Calcium Contact dermatitis Active 01/03/2011 NKDA Inactive Medications Medication Date Status Form Strength Qnty SIG Indications Ordering Provider Norvasc 08/11 Active Tablets 5mg 90tab 1 by mouth I25.10 Yasmine /2017 s every day Graham, [employer] Lorazepam 07/28 Active Tablets 1mg 45tab 1 by mouth s twice a day Cuello, as needed MD for anxiety or isomnia Cpap Mask And 07/23 Active Device 1unit use as G47.33 s directed MD Khushboo Nitrostat Active Tablets Sub 0.4mg QS one sl q5min up to 3 doses prn Metoprolol Active Tablets ER 25mg 135ta 1.5 tablets Yasmine Succinate ER 24HR bs by mouth Thuman, every day [employer] Aspirin Low Dose Active Chewtabs 81mg 90uni 1 by mouth ts every day MD Khushboo Atorvastatin Active Tablets 20mg 90tab take 1 s tablet at Cuello, bedtime Metformin HCL Active Tablets 500mg 180ta take 1 bs tablet by Cuello, mouth two MD times daily with a meal Folic Acid Active Tablets 1mg 90tab 1 by mouth s every day MD Khushboo Maalox Max Active Suspension 400-400-4 30 0mg/5ML milliliters by mouth q4hr as needed indigestion Acetaminophen ER Active Tablets ER 650mg 60tab 1 tab by s mouth q4 Cuello, hours as MD needed pain Nicotrol Active Inhaler 10mg 168un 1 its cartridges Cuello, every 2 MD hours as needed Nicotine Active Patches 21mg/24HR use 1 patch Unknown 24HR every 24 System hours Thiamine HCL Active Tablets 100mg 30tab 1 by mouth Jigna /0000 s every day MD Khushboo Hydroxyzine HCL Active Tablets 50mg 90tab take 1 tab s by mouth at Cuello, at bedtime Gabapentin Active Capsules 300mg 60cap 1 by mouth Jigna / s two times a Cuello, day Pantoprazole Active Tablets DR 40mg 90tab 1 by mouth Jigna Sodium / s every day MD Khushboo Bupropion HCL ER Active Tablets ER 150mg 90tab 1 by mouth Jigna (XL) / 24HR s every day MD Khushboo Venlafaxine HCL Active Caps ER 75mg 30cap 1 by mouth Jigna ER / 24HR s every day MD Khushboo Norvasc 08/11 Hx Tablets 2.5mg 90tab 1 by mouth I25.10 Yasmine s every day Murphy Stevenson [employer] 08/11 Acamprosate 10/[address] 333mg 180ta 2 tab by F10.27 Calcium bs mouth three Cuello, - times a day 07/23 Ramipril 10/10 Hx Capsules 10mg 30cap 1 cap by I10 s mouth every Cuello, - day 08/11 Omeprazole 10/[address] 20mg 90cap 1 by mouth Dylan s every day Hira Zavala - Elizabeth,[facility] 07/26 Altace 10/12 Hx Capsules 5mg 90cap 1 tab by s mouth every Stefek, - day MChang, 06/24 [facility] Donepezil HCL 04/02 Hx Tablets 5mg 60tab 1 every day Bhaskar S. s for 1 month Rudy, - then 2 qd M.D. 10/12 Diazepam 03/30 Hx Tablets 5mg 2tabs 1 tab 30 S. /2012 minutes Rudy, - before mri, MChang 04/02 make take second tablet if needed Nicotine Hx Patches 14mg/24HR 30uni apply one Unknown 24HR ts patch daily - 10/11 Altace Hx Capsules 2.5mg 90cap 1 po qd Unknown /0000 s - 10/12 Trazodone HCL / Hx Tablets 50mg 30tab 1 po qhs Unknown / s - 07/23 Multivitamin / Hx one po qd Unknown /0000 - 10/30 Nicorette Hx 2mg 1 po qid Unknown / prn - 10/11 Acetaminophen Hx Tablets 325mg 100ta 2 tablets Unknown / bs po q4hrs - prn 03/17 Fluticasone Hx Suspension 50mcg/Act 16gm 2 sprays Unknown Propionate / each - nostril 08/04 qday pr Gabapentin Hx Capsules 100mg 90cap 1 po qid Unknown / s - 04/02 Hydroxyzine Hx Capsules 25mg 60cap 1 cap by Jigna Pamoate /0000 s mouth q6 Cuello, - hours as 07/23 needed itching Citalopram Hx Tablets 20mg 30tab 1 po qd PT [place], Hydrobromide / s Not Sure Geraldo - 08/04 Crestor Hx Tablets 20mg 30tab 1 po qd Unknown / s - 03/17 Lipitor Hx Tablets 20mg 30tab one tab po Unknown /0000 s qhs - 09/30 Venlafaxine HCL Hx Tablets 75mg 90tab 3 po qd Unknown / s - 04/02 Methylphenidate Hx Tablets 18mg 135ta one po q Am Unknown /0000 bs - 04/02 Wellbutrin SR Hx Tablets ER 150mg 1 po qday Unknown /0000 12HR - 10/10 Wellbutrin XL / Hx Tablets ER 300mg 30tab 1 po qd Unknown / 24HR s - 07/09 Augmentin Hx Tablets 500-125mg 10tab 1 po bid Unknown /0000 s last dose - on 09/18/1309/20 Carafate Hx Tablets 1gm 30tab take one Unknown / s (1) tablet - po tid with 07/09 Lisinopril Hx Tablets 10mg 30tab 1 po qd [place], Murphy Franks MD 10/[address] 40mg 90tab 1 po qd [place], Murphy Franks MD 06/24 Guanfacine HCL Hx Tablets 1mg 30tab 1 po qd [place]enton, Murphy Franks MD 07/09 Aspirin Hx Chewtabs 81mg Chew 1 Unknown /0000 Tablet By - Mouth Every Bupropion HCL ER Hx Tablets ER 150mg Take 1 Unknown (XL) /0000 24HR Tablet By - Mouth Every 06/24 Citalopram Hx Tablets 20mg Take 1 Unknown Hydrobromide /0000 Tablet By - Mouth Every Ramipril Hx Capsules 5mg Take 1 Unknown /0000 Capsule By - Mouth Every Omeprazole Hx Capsules DR 20mg Take 1 Unknown /0000 Capsule By - Mouth Every Propranolol HCL Hx Tablets 10mg Take 2 Unknown /0000 Tablets By - Mouth Two 07/09 Times Daily Hydroxyzine HCL Hx Tablets 25mg Take 1 Unknown /0000 Tablet By - Mouth AT 06/24 Bedtime Needed Gabapentin Hx Capsules 100mg Take Two Unknown /0000 Capsules By - Mouth Three 07/23 Times A Day Nitroglycerin Hx Tablets Sub 0.4mg Place One Unknown /0000 Tablet - Under The 06/24 Tongue as Needed For Chest Pain, May Repeat Venlafaxine HCL Hx Tablets 40mg take one Unknown /0000 tablet - daily. 08/04 Lorazepam Hx Tablets 1mg po q 8 hrs Unknown /0000 prn - 07/23 Flomax Hx Capsules 0.4mg 1 by mouth Unknown /0000 every day - 08/04 Medications Administered in Office Medication Date Status Form Strength Qnty SIG Indications Ordering Provider Technetium TC Administered Injection Jeb Koch 99M 018 DO Akin Tetrofosmin, FACC Per Unit Dose Up To 40 Millicuries Immunizations Description No Information Available Vital Signs Date Vital Result Comment 12/01/2018 10:05am Height 67 inches 5'7" Weight 204.00 lb Heart Rate 87 /min BP Systolic Sitting 127 mmHg BP Diastolic Sitting 83 mmHg Body Temperature 96.3 F O2 % BldC Oximetry 98 % BMI (Body Mass Index) 31.9 kg/m2 11/05/2018 1:14pm Height 67 inches 5'7" Weight 204.00 lb w/o shoes Heart Rate 741 /min BP Systolic Sitting 114 mmHg Lue reg cuff BP Diastolic Sitting 80 mmHg Lue reg cuff BP Systolic Standing 110 mmHg Lue reg cuff BP Diastolic Standing 70 mmHg Lue reg cuff Respiratory Rate 18 /min BMI (Body Mass Index) 31.9 kg/m2 Ejection Fraction 50% 09/03/18 echo 10/30/2018 4:20pm Height 67 inches 5'7" Weight 204.00 lb with shoes Heart Rate 91 /min BP Systolic 130 mmHg BP Diastolic 79 mmHg O2 % BldC Oximetry 96 % BMI (Body Mass Index) 31.9 kg/m2 08/27/2018 2:43pm Height 67 inches 5'7" Weight 205.00 lb with shoes on Heart Rate 88 /min irregular BP Systolic Sitting 144 mmHg Lue, reg cuff (144/95 on home unit) BP Diastolic Sitting 86 mmHg Lue, reg cuff (144/95 on home unit) BP Systolic Standing 136 mmHg Lue, reg cuff BP Diastolic Standing 80 mmHg Lue, reg cuff Respiratory Rate 18 /min Pain Level 0 BMI (Body Mass Index) 32.1 kg/m2 08/11/2018 12:56pm Height 67 inches 5'7" Weight 207.00 lb Heart Rate 92 /min reg BP Systolic Sitting 155 mmHg LA LG cuff BP Diastolic Sitting 100 mmHg LA LG cuff Respiratory Rate 18 /min BMI (Body Mass Index) 32.4 kg/m2 07/27/2018 2:04pm Height 67 inches 5'7" Weight 207.00 lb With Shoes Heart Rate 80 /min BP Systolic 108 mmHg Rue Reg Cuff BP Diastolic 68 mmHg Rue Reg Cuff BP Systolic Sitting 106 mmHg Lue Reg Cuff BP Diastolic Sitting 68 mmHg Lue Reg Cuff BP Systolic Standing 110 mmHg Lue Reg Cuff BP Diastolic Standing 70 mmHg Lue Reg Cuff BMI (Body Mass Index) 32.4 kg/m2 Ejection Fraction 50-55% ECHO.07/29/2011 07/23/2018 10:37am Height 67 inches 5'7" Weight 206.25 lb Heart Rate 112 /min BP Systolic 115 mmHg BP Diastolic 79 mmHg Body Temperature 97.5 F O2 % BldC Oximetry 94 % BMI (Body Mass Index) 32.3 kg/m2 06/24/2018 9:47am Height 67 inches 5'7" Weight 212.00 lb Heart Rate 84 /min BP Systolic Sitting 150 mmHg BP Diastolic Sitting 90 mmHg Body Temperature 98.0 F O2 % BldC Oximetry 94 % BMI (Body Mass Index) 33.2 kg/m2 10/12/2013 1:14pm Height 65 inches 5'5" Weight 186.00 lb [...] BMI (Body Mass Index) 30.9 kg/m2 04/02/2013 10:05am Height 67 inches 5'7" Weight 185.00 lb Heart Rate 68 /min BP Systolic Sitting 118 mmHg BP Diastolic Sitting 70 mmHg Respiratory Rate 8 /min BMI (Body Mass Index) 29.0 kg/m2 03/17/2013 12:54pm Height 67 inches 5'7" Weight 185.00 lb Heart Rate 64 /min BP Systolic 142 mmHg BP Diastolic 86 mmHg Respiratory Rate 16 /min BMI (Body Mass Index) 29.0 kg/m2 Results Test Date Facility Test Result H/L Range Note Laboratory test 11/23/2018 [facility] In House Hemoglobin A1c 7.6 High 5-7 finding Lipid Panel - 11/05/2018 [facility] Creatine 152 U/L N 10-[address] Kinase(CK) [place] [address] [phone] Comp Metabolic 11/05/2018 [facility] Sodium 138 mmol/L N 135- [address] [place] [address] [phone] Potassium 4.6 mmol/L N 3.5-5.0 Chloride 103 mmol/L N 101-111 Co2 Carbon Dioxide 25 mmol/L N 22-32 Anion Gap 10 mmol/L N 2-11 Glucose 144 mg/dL High 70-100 Blood Urea Nitrogen 11 mg/dL N 6-24 Creatinine 0.84 mg/dL N 0.67-1.17 BUN/Creatinine Ratio 13.1 N 8-20 Calcium 9.4 mg/dL N 8.6-10.3 Total Protein 6.9 g/dL N 6.4-8.9 Albumin 4.3 g/dL N 3.2-5.2 Globulin 2.6 g/dL N 2-4 Albumin/Globulin Ratio 1.7 N 1-3 Total Bilirubin 0.50 mg/dL N 0.2-1.0 Alkaline Phosphatase 57 U/L N 34-104 Alt 43 U/L N 7-52 Ast 39 U/L N 13-39 Egfr Non- 93.9 >60 Egfr 113.6 >60 1 Lipid Profile 11/05/2018 [facility] Triglycerides 310 mg/dL 2 (Trig/Chol/HDL) [address] [place] [address] [phone] Cholesterol 170 mg/dL 3 HDL Cholesterol 45.2 mg/dL 4 LDL Cholesterol 63 mg/dL 5 Inr/Protime 11/05/2018 [facility] Inr 0.98 N 0.77-1.02 [address] [place] [address] [phone] Laboratory test 10/21/2018 [facility] Surgical SEE RESULT [address] [place] [address] Order [phone] Comp Metabolic 08/26/2018 [facility] Sodium 139 mmol/L N 135- 145 Panel [address] [place] [address] [phone] Potassium 3.9 mmol/L N 3.5-5.0 Chloride 97 mmol/L Low 101-111 Co2 Carbon Dioxide 26 mmol/L N 22-32 Anion Gap 16 mmol/L High 2-11 Glucose 155 mg/dL High 70-100 Blood Urea Nitrogen 14 mg/dL N 6-24 Creatinine 0.96 mg/dL N 0.67-1.17 BUN/Creatinine Ratio 14.6 N 8-20 Calcium 9.3 mg/dL N 8.6-10.3 Total Protein 7.7 g/dL N 6.4-8.9 Albumin 4.7 g/dL N 3.2-5.2 Globulin 3.0 g/dL N 2-4 Albumin/Globulin Ratio 1.6 N 1-3 Total Bilirubin 1.10 mg/dL High 0.2-1.0 Alkaline Phosphatase 67 U/L N 34-104 Alt 83 U/L High 7-52 Ast 72 U/L High 13-39 Egfr Non- 80.5 >60 Egfr 97.3 >60 7 Urine Culture And 06/30/2018 [facility] Urine Culture SEE RESULT [address] [place] [place] [address] [phone] Laboratory test 06/30/2018 [facility] Pathologist (SEE NOTE) [address] [place] [address] [phone] Manual Differential 06/30/2018 [facility] Neutrophil % 38 % N 38-[address] [place] [address] [phone] Lymphocytes % 50 % High 25-47 Monocytes % 7 % N 0-7 Eosinophils % 1 % N 0-6 Basophil % 4 % High 0-2 Abs Neutrophils 3.0 10^3/uL N 1.5-7.7 Abs Lymphocytes 4.0 10^3/uL N 1.0-4.8 Abs Monocytes 0.6 10^3/uL N 0-0.8 Abs Eosinophils 0.1 10^3/uL N 0-0.6 Abs Basophils 0.3 10^3/uL High 0-0.2 RBC Morphology Normal Normal Technical Review Performed By [id number] CBC Auto Diff 06/30/2018 [facility] White Blood 8.0 10^3/uL N 3.5-10.[address] [place] [address] [phone] Red Blood Count 4.97 10^6/uL N 4.00-5.40 Hemoglobin 15.1 g/dL N 14.0-18.0 Hematocrit 45 % N 42-52 Mean Corpuscular Volume 90 fL N 80-94 Mean Corpuscular Hemoglobin 31 pg N 27-31 Mean Corpuscular HGB Conc 34 g/dL N 31-36 Red Cell Distribution Width 19 % High 10.5-15 Platelet Count 281 10^3/uL N 150-450 Mean Platelet Volume 6.7 um3 Low 7.4-10.4 Large Platelets Present Abs Neutrophils 3.5 10^3/uL N 1.5-7.7 Laboratory test 06/30/2018 [facility] Creatine 105 U/L N 10- [address] Kinase(CK) [place] [address] [phone] Acetaminophen < 15 g/mL 10 Alcohol 314 mg/dL High <10 Salicylate < 2.50 mg/dL <30 TSH (Thyroid Stim Horm) 2.59 mcIU/mL N 0.34-5.60 Comp Metabolic Panel 06/30/2018 [facility] Sodium 140 mmol/L N 135-[address] [place] [address] [phone] Potassium 4.2 mmol/L N 3.5-5.0 Chloride 98 mmol/L Low 101-111 Co2 Carbon Dioxide 31 mmol/L N 22-32 Anion Gap 11 mmol/L N 2-11 Glucose 149 mg/dL High 70-100 Blood Urea Nitrogen 11 mg/dL N 6-24 Creatinine 0.84 mg/dL N 0.67-1.17 BUN/Creatinine Ratio 13.1 N 8-20 Calcium 8.7 mg/dL N 8.6-10.3 Total Protein 7.6 g/dL N 6.4-8.9 Albumin 4.5 g/dL N 3.2-5.2 Globulin 3.1 g/dL N 2-4 Albumin/Globulin Ratio 1.5 N 1-3 Total Bilirubin 0.80 mg/dL N 0.2-1.0 Alkaline Phosphatase 74 U/L N 34-104 Alt 73 U/L High 7-52 Ast 108 U/L High 13-39 Egfr Non- 93.9 >60 Egfr 113.6 >60 11 Urine Drug 06/30/2018 [facility] Amphetamine Ur None Detected None Detect SCR ED & [address] Screen [place] [address] [phone] Barbiturates Urine Screen None Detected None Detect Benzodiazepine Urine Screen Presumptive Posi <SEE NOTE> Abnormal None Detect 12 Urine Cannabinoids Screen None Detected None Detect Urine Cocaine Screen None Detected None Detect Urine Opiates Screen None Detected None Detect Urine Phencyclidine Screen None Detected None Detect 13 Urinalysis Profile 06/30/2018 [facility] Urine Color Yellow [address] [place] [address] [phone] Urine Appearance Clear Urine Specific [place] 1.018 N 1.010-1.030 Urine pH 5.0 N 5-9 Urine Urobilinogen Negative Negative Urine Ketones Negative Negative Urine Protein Negative Negative Urine Leukocytes Negative Negative Urine Blood 2+ Abnormal Negative Urine Nitrite Negative Negative Urine Bilirubin Negative Negative Urine Glucose Negative Negative Urine White Blood Cell Trace(0-5/hpf) Absent Urine Red Blood Cell 2+(6-10/hpf) Abnormal Absent Urine Bacteria Absent Absent Laboratory test finding 06/24/2018 [facility] In House Hemoglobin A1c 7.0 5-7 Glucose Fingerstick 243 1 Because ethnic data is not always readily available, this report includes an eGFR for both -Americans and non- Americans. The National Kidney Disease Education Program (NKDEP) does not endorse the use of the MDRD equation for patients that are not between the ages of 18 and 70, are , have extremes of body size, muscle mass, or nutritional status, or are non- or non-. According to the National Kidney Foundation, irrespective of diagnosis, the stage of the disease is based on the level of kidney function: Stage Description GFR(mL/min/1.73 m(2)) 1 Kidney damage with normal or decreased GFR 90 2 Kidney damage with mild decrease in GFR 60-89 3 Moderate decrease in GFR 30-59 4 Severe decrease in GFR 15-29 5 Kidney failure <15 (or dialysis) 2 Desirable: <150 Borderline High: 150-199 High: 200-499 Very High: >500 3 Desirable: <200 Borderline High: 200-239 High: >239 4 Low: <40 Desirable: 40-60 High: >60 5 Desirable: <100 Near Optimal: 100-129 Borderline High: 130-159 High: 160-189 Very High: >189 6 SEE RESULT BELOW Name: SIM CHUN : [address]: Patricia Fontana MD Acct: [id number] Unit: [id number] AGE: 58 Location: ENDO Re10/21/18 SEX: M Status: DEP REF SPEC: [id number] AYLA: 10/21/18-[address] [facility] [address]: Patricia Glover MD REQ: [id number] RECD: 10/21/18124 STATUS: DEJA AGARWAL DR: Yasmine Stevenson [employer] WORK[employer] _ ORDERED: LEVEL 4 FINAL DIAGNOSIS Gastroesophageal junction, biopsy: -- Gastroesophageal transition zone mucosa with mild reflux esophagitis and extensive goblet cell/intestinal metaplasia identified. -- No dysplasia identified. CLINICAL HISTORY Guzman?s surveillance POST-OPERATIVE DIAGNOSIS EGD: distal esophagus; tortuous; no varices; 36 gastroesophageal junction; 35 - 36 cm z line; moderate amount retained in stomach; solid food; limited views; normal duodenum GROSS DESCRIPTION The specimen is received in formalin labeled, [place] Biopsies, and consists of a 1.0 x 0.7 x 0.2 cm aggregate of villar-pink irregular soft tissue fragments which is submitted entirely in one cassette. Signed by and Reported on: Tommie Grajeda MD 04/02 1244 END OF REPORT DEPARTMENT OF PATHOLOGY, [address] [place] [address] Tommie Grajeda M.D. Director [facility] # [id number] 7 Because ethnic data is not always readily available, this report includes an eGFR for both -Americans and non- Americans. The National Kidney Disease Education Program (NKDEP) does not endorse the use of the MDRD equation for patients that are not between the ages of 18 and 70, are , have extremes of body size, muscle mass, or nutritional status, or are non- or non-. According to the National Kidney Foundation, irrespective of diagnosis, the stage of the disease is based on the level of kidney function: Stage Description GFR(mL/min/1.73 m(2)) 1 Kidney damage with normal or decreased GFR 90 2 Kidney damage with mild decrease in GFR 60-89 3 Moderate decrease in GFR 30-59 4 Severe decrease in GFR 15-29 5 Kidney failure <15 (or dialysis) 8 SEE RESULT BELOW Name: SIM CHUN : [address]: Manolo Camara MD Acct: [id number] Unit: [id number] AGE: 58 Location: [address] Re07/01/18 SEX: M Status: ADM IN SPEC: [id number] AYLA: 06/30/18 DR: Nan Flaherty MD REQ: [id number] RECD: 06/30/18 STATUS: [facility] DR: Jigna Cuello MD _ SOURCE: URINE SPDESC: ORDERED: Urine Culture Procedure Result Reported Site Urine Culture Final 07/02/18827 ML No Growth (<1,000 CFU/mL) * ML - Main Lab . END OF REPORT DEPARTMENT OF PATHOLOGY, [address] [place] [address] Tommie Grajeda M.D. Director [facility] # [id number] 9 Normal smear. Reviewed by Jennifer Diaz MD 10 Therapeutic concentration: <50 ug/mL Toxic concentration: >120 ug/mL 11 Because ethnic data is not always readily available, this report includes an eGFR for both -Americans and non- Americans. The National Kidney Disease Education Program (NKDEP) does not endorse the use of the MDRD equation for patients that are not between the ages of 18 and 70, are , have extremes of body size, muscle mass, or nutritional status, or are non- or non-. According to the National Kidney Foundation, irrespective of diagnosis, the stage of the disease is based on the level of kidney function: Stage Description GFR(mL/min/1.73 m(2)) 1 Kidney damage with normal or decreased GFR 90 2 Kidney damage with mild decrease in GFR 60-89 3 Moderate decrease in GFR 30-59 4 Severe decrease in GFR 15-29 5 Kidney failure <15 (or dialysis) 12 Presumptive Positive Presumptive positive results are unconfirmed. 13 The urine specimen was tested at the listed cutoffs: Drug class test level (ng/mL) Amphetamines 500 Barbiturates 200 Benzodiazepine metabolites 200 Cocaine metabolites 150 Cannabinoids 50 Opiates 300 Pcp 25 Specimen was received without chain of custody. Results should be used for medical purposes only. Procedures Date Code Description Status 09/03/2018 81938 ECHO Transthoracic, Real-Time 2D With Doppler And Completed Color Flow 09/03/2018 31294 ECHO Transthoracic, Real-Time 2D With Doppler And Completed Color Flow 08/18/2018 [id number] Diabetic Foot Exam Completed 08/05/2018 [id number] Diabetic Retinal Eye Exam Completed 08/04/2018 47630 Stress Test Completed 08/04/2018 53889 Myocardial Perfusion Imaging Tomographic (Spect) Completed Multiple Studies 07/27/2018 51785 EKG Tracing & Interpretation Completed 02/13/2014 79403 Treadmill Interp/Report Only Completed 02/13/2014 51335 Stress Test Supervsn W/Out I/R Completed 02/11/2014 30722 EKG, Interpretation Only Completed 02/10/2014 50313 EKG, Interpretation Only Completed 10/12/2013 10916 EKG Tracing & Interpretation Completed 09/10/2013 61005 Stress Test Supervsn W/Out I/R Completed 09/10/2013 39071 Treadmill Interp/Report Only Completed 09/09/2013 31411 Treadmill Interp/Report Only Completed 09/09/2013 51334 Stress Test Supervsn W/Out I/R Completed 09/06/2013 54501 EKG, Interpretation Only Completed 08/21/2013 27057 EKG, Interpretation Only Completed 03/28/2013 26780 Polysomnography Sleep Staging 4+ Parameters W/Cpap Completed 11/04/2012 29658 Treadmill Interp/Report Only Completed 11/04/2012 90045 Stress Test Supervsn W/Out I/R Completed 02/22/2000 092379810 Diabetic Retinal Eye Exam Completed Encounters Type Date Location Provider Dx Diagnosis Office Visit 11/05/2018 [facility] Anju Phelps, I25.10 Athscl heart 1:30p Of Oscar Johnson disease of [place] coronary artery w/o ang pctrs I10 Essential (primary) hypertension E78.5 Hyperlipidemia, unspecified G47.33 Obstructive sleep apnea (adult) (pediatric) R74.0 Nonspec elev of levels of transamns & lactic acid dehydrgnse E11.8 Type 2 diabetes mellitus with unspecified complications Office Visit 10/30/2018 4:20p [facility] Internal Jigna Khushboo, F10.11 Alcohol abuse, Medicine - MD in remission [facility] I10 Essential (primary) hypertension Z02.71 Encounter for disability determination E11.8 Type 2 diabetes mellitus with unspecified complications Office Visit 08/27/2018 [place] Yasmine E78.5 Hyperlipidemia, 2:30p Cardiology Angélica Stevenson NP unspecified [facility] I10 Essential (primary) hypertension I25.10 Athscl heart disease of [place] coronary artery w/o ang pctrs G47.33 Obstructive sleep apnea (adult) (pediatric) F10.11 Alcohol abuse, in remission Office Visit 08/11/2018 1:30p [facility] Yasmine Stevenson, I10 Essential (primary) Of [facility] [employer] hypertension I25.10 Athscl heart disease of [place] coronary artery w/o ang pctrs E78.5 Hyperlipidemia, unspecified G47.33 Obstructive sleep apnea (adult) (pediatric) F10.11 Alcohol abuse, in remission Office Visit 07/27/2018 2:10p [facility] Anju Phelps, I25.10 Athscl heart Of Oscar Johnson disease of [place] coronary artery w/o ang pctrs E11.8 Type 2 diabetes mellitus with unspecified complications I10 Essential (primary) hypertension F17.200 Nicotine dependence, unspecified, uncomplicated G47.33 Obstructive sleep apnea (adult) (pediatric) E78.5 Hyperlipidemia, unspecified R06.02 Shortness of breath Office Visit 07/23/2018 10:30a [facility] Internal Jigna Cuello MD I10 Essential (primary) Medicine - [address] F10.21 Alcohol dependence, in remission F33.1 Major depressive disorder, recurrent, moderate E11.9 Type 2 diabetes mellitus without complications G47.33 Obstructive sleep apnea (adult) (pediatric) Office Visit 06/24/2018 9:30a [facility] Internal Jigna Cuello, 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 Hospitalist Other Hospitalists 291.9 Alcohol-Induced Mental Disorders Unspec Office Visit 02/13/2014 8:52a [facility] Genet 786.50 Pain Chest Assoc,jose Jimenez M.D. Unspec Hospitalists 291.81 Alcoholic Withdrawal 305.1 Tobacco Use Disorder 300.9 Nonpsychotic Disorders NOS Office Visit 02/12/2014 8:51a [facility] Genet 786.50 Pain Chest Assoc,jose Jimenez M.D. Unspec Hospitalists 291.81 Alcoholic Withdrawal 305.1 Tobacco Use Disorder 300.9 Nonpsychotic Disorders NOS Office Visit 02/11/2014 8:51a [facility] Genet 786.50 Pain Chest Assoc,jose Jimenez M.D. Unspec Hospitalists 291.81 Alcoholic Withdrawal 305.1 Tobacco Use Disorder 300.9 Nonpsychotic Disorders NOS Office Visit 02/10/2014 8:49a [facility] Genet 786.50 Pain Chest Assoc,jose Jimenez M.D. Unspec Hospitalists 291.81 Alcoholic Withdrawal 305.1 Tobacco Use Disorder 300.9 Nonpsychotic Disorders NOS Office Visit 12/25/2013 2:59p [facility] Assoc,jose Bobby 276.2 Acidosis Hospitalists Elizabeth Doty 303.90 Alcohol Dependence Other & Unspec Office Visit 12/24/2013 2:58p [facility] Genet 303.90 Alcohol Assoc,jose Jimenez M.D. Dependence Other Hospitalists & Unspec 276.2 Acidosis Office Visit 10/12/2013 1:15p [facility] Raciel Rm, 401.1 Hypertension Of Oscar Johnson, FAC, Benign FSCAI 414.9 Ischemic Heart Disease Chronic Unspec 786.50 Pain Chest Unspec 272.4 Hyperlipidemia Other Unspec Office Visit 09/09/2013 [facility] Caren Ferguson, 291.81 Alcoholic 9:27a Assjose mackenzie M.D. Withdrawal Hospitalists 311 Depressive Disorder Not Elsewhere Spec 786.50 Pain Chest Unspec v62.84 Suicidal Ideation Office Visit 09/08/2013 9:27a [facility] Caren Ferguson 786.50 Pain Chest Assjose mackenzie M.D. Unspec Hospitalists 291.81 Alcoholic Withdrawal v62.84 Suicidal Ideation 311 Depressive Disorder Not Elsewhere Spec Office Visit 09/07/2013 9:27a [facility] Caren Phyllis, 786.50 Pain Chest Assocjose M.D. Unspec Hospitalists 291.81 Alcoholic Withdrawal 311 Depressive Disorder Not Elsewhere Spec v62.84 Suicidal Ideation Office Visit 09/06/2013 9:26a [facility] Brandy 786.05 Shortness Of Assoc,jose Robles D.O. Breath Hospitalists 291.81 Alcoholic Withdrawal 311 Depressive Disorder Not Elsewhere Spec v62.84 Suicidal Ideation Office Visit 08/23/2013 9:11a [facility] Genet 786.50 Pain Chest Assocjose M.D. 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 Impairment So Stated 437.9 Cerebrovascular Disease Or Lesion Unspec Office Visit 03/17/2013 1:00p [facility] Yoshi Koch 780.93 Memory Loss Services Of Oscar Grant M.D. 437.9 Cerebrovascular Disease Or Lesion Unspec 303.93 Alcohol Dependence In Remission Other & Unspec Office 01/22/2013 Franny Le 327.23 Obstructive Sleep Visit 4:05p [facility] Elizabeth [place] Apnea Adult & Pediatric Office 11/05/2012 [facility] Devon Reyna 414.01 Coronary Visit 1:11p Assjose mackenzie II, M.D. Atherosclerosis Hospitalists [facility] 300.9 Nonpsychotic Disorders NOS Office Visit 11/03/2012 [facility] Dennis 414.01 Coronary 1:11p jose Spann M.D. Atherosclerosis Hospitalists [facility] 300.9 Nonpsychotic Disorders NOS Plan of Treatment Future Appointment(s):02/25/2019 10:00 am - Jigna Cuello MD at [facility] Internal Medicine - [place]42/29/2019 11:00 am - Glenn Sutton M.D. at [facility]11/23/2018 - Jigna Cuello MDE11.8 Type 2 diabetes mellitus with unspecified complicationsComments:Your A1c is at 7.5%, which is near the goal. I recommend you tighten your diet and increase exerciseand we can decide on medication changes if it is higher in 3 monthsReferral:Raz Pandey MD, OphthalmologyFollow up:3 [id number] Essential (primary) hypertensionComments:Continue with your current medication.K22.70 Guzman's esophagus without dysplasia
--- OUTSIDE RECORDS SUMMARY | 2018-12-28 18:54 | XMS REPORT | Continuity of Care Document ---
:1960 External Reference #:[id number] Author Name Tesfaye Sadler M.D. Address [address] [place] [address] Care Team Providers Name Role Phone Jigna Cuello MD Primary Care Physician Unavailable Payers Date Identification Numbers Payment Provider Subscriber Policy Number: [id number] Medicare - NGS Chong Magana Lay PayID: [id number] [address] [place] [address] Policy Number: [id number] Medicaid Venkat Lay PayID: [id number] [address] [place] [address] Advance Directives Description No Information Available Problems Date Description Provider Status Onset: Essential hypertension Active Onset: Type 2 diabetes mellitus Active Onset: Anxiety Active Onset: Neuropathy Active Onset: Myocardial infarction Active Note: 1999 Onset: Hyperlipidemia Active 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 Active Onset: 08/05/2018 Astigmatism Tesfaye Sadler M.D. Active Onset: 08/05/2018 Presbyopia Tesfaye Sadler M.D. Active Onset: Placement of stent Active Onset: Prosopagnosia Active Onset: Cerebrovascular accident Active Note: 1999 Family History Date Family Member(s) Observation Comments Father Unknown Mother Diabetes Maternal Grandmother Blind Social History Type Date Description Comments Sex Unknown Marital Status Single Occupation None Work Status Unemployed ETOH Use Former Alcohol Substance Abuse Tobacco Use Start: Unknown Light tobacco smoker (10 or fewer cigarettes/day) Recreational Drug Use Denies Drug Use Smoking Status Reviewed: 12/03/18 Light tobacco smoker (10 or fewer cigarettes/day) Allergies, Adverse Reactions, Alerts Description No Known Drug Allergies Medications Medication Date Status Form Strength Qnty SIG Indications Ordering Provider Lorazepam 0000/ Active Tablets 1mg Take 1 Unknown 0000 Tablet By Mouth Two Times Daily as Needed For Anxiety Or Isomnia -- Maximum Daily Dose Of 2 Per Day Atorvastatin / Active Tablets 20mg Take 1 Unknown Calcium 0000 Tablet By Mouth AT Bedtime Hydroxyzine HCL / Active Tablets 50mg Take 1 Unknown 0000 Tablet By Mouth AT Bedtime Metformin HCL / Active Tablets 500mg Take 1 Unknown 0000 Tablet By Mouth Two Times Daily Pantoprazole / Active Tablets DR 40mg Take 1 Unknown Sodium 0000 Tablet By Mouth Every Day Venlafaxine HCL / Active Caps ER 75mg Take 1 Unknown ER 0000 24HR Capsule By Mouth Every Morning Nitroglycerin / Active Tablets 0.4mg Place One Unknown 0000 Sub Tablet Under The Tongue as Needed For Chest Pain, May Repeat Every 5 Minutes For Up To 3 Total Doses Call Doctor If Not Getting Be Metoprolol / Active Tablets ER 25mg Take 1 Unknown Succinate ER 0000 24HR Tablet By Mouth Every Day Gabapentin / Active Capsules 300mg Take 1 Unknown 0000 Capsule By Mouth Two Times Daily Bupropion HCL ER / Active Tablets ER 150mg Take 1 Unknown (XL) 0000 24HR Tablet By Mouth Every Morning Amlodipine / Active Tablets 5mg Take 1 Unknown Besylate 0000 Tablet By Mouth Every Day Folic Acid / Active Tablets 1mg Take 1 Unknown 0000 Tablet By Mouth Every Day Aspirin / Active Chewtabs 81mg Chew And Unknown 0000 Swallow 1 Tablet By Mouth Every Day Arthritis Pain / Active Tablets ER 650mg Take 1 Unknown Relief 0000 Tablet By Mouth Every 4 Hours as Needed For Pain Nicotine / Active Patches 14mg/24HR Apply 1 Unknown 0000 24HR Patch To The Skin Every Day And Remove AT Bedtime Ramipril / Hx Capsules 10mg Take 1 Unknown 0000 - Capsule 11/10/ By Mouth 2019 Every Day Immunizations Description No Information Available Vital Signs Description No Information Available Results Description No Information Available Procedures Date Code Description Status 08/05/2018 82010 New Patient Comprehensive Exam Completed 01/12/2014 61870 Patient No Show For Appt Completed 01/01/2013 32057 Determination Of Refractive State Completed 01/01/2013 24043 New Patient Comprehensive Exam Completed 03/10/2006 68497 Determination Of Refractive State Completed 03/10/2006 89634 Est Patient Comprehensive Exam Completed 03/10/2006 202 Refit SCL Completed 06/20/2004 68526 Rescheduled Appointment Completed 02/07/2004 50006 Determination Of Refractive State Completed 02/07/2004 42620 Est Patient Comprehensive Exam Completed Encounters Description No Information Available Plan of Treatment 12/03/2018 - Tesfaye Sadler M.D.E11.9 Type 2 diabetes mellitus without complicationsComments:Smoking can increase the risk of developing or worsening any eye related disease, as well as affect your overall health. If you are a smoker, we strongly recommend that you quit.If you are not a smoker, we strongly recommend that you do not start. You have diabetes. I do not detect any changes in both of your retinas from diabetes at this time. Proper control of your diabetes is important for the health of your eyes. Changes in your eyes from diabetes can happen without symptoms, so it is important that you have your eyes examined.Follow up:1 Year Follow Up DFE You can expect to have your eyes dilated at your next visit. If Dr. Sadler orders any additional testing, it may require extra time. We recommend that you bring sunglasses, as dilation drops often make you light sensitive until they wear off. We always recommend you bring someone to drive you home if you are uncomfortable driving with your eyes dilated. If you have any questions before your next visit, feel free to call our office at .H25.13 Age-related nuclear cataract, bilateralComments:You have been diagnosed with cataracts. If you are happy with your vision as it is now, then we willsee you at your next scheduled appointment. If you feel like your vision is getting worse before your scheduled appointment, please call Yumiko Mayer at [phone].E51.2 Wernicke's encephalopathyComments:Smoking can increase the risk of developing or worsening any eye related disease, as well as affect your overall health. If you are a smoker, we strongly recommend that you quit.If you are not a smoker , we strongly recommend that you do not start. YOU HAVE LEGAL DRIVING VISION BUT THERE IS NO TEST THAT I CAN DO THAT MIMICS THE TRUE COMPLEXITY OF DRIVING OTHER THAN A DRIVERS TEST THROUGH THE DMV. IFYOU HAVE CONCERNS FOR YOUR DRIVING YOU SHOULD HAVE A TEST THROUGH THE DMV TO MAKE SURE YOU ARE A SAFE [employer]ARN SORTER
[2018-12-28 19:09] LABS: ABS Basophils 0.1 10^3/ul (0-0.2); ABS Eosinophils 0 10^3/ul (0-0.6); ABS Lymphocytes 2.6 10^3/ul (1.0-4.8); ABS Monocytes 0.4 10^3/ul (0-0.8); ABS Neutrophils 3.3 10^3/ul (1.5-7.7); ABS Nucleated RBC 0 10^3/ul; Eosinophil % 0.5 %; Hematocrit 46 % (36-46); Hemoglobin 15.6 g/dL (14.0-18.0); Mean Corpuscular HGB Conc 34 g/dL (31-36); Mean Corpuscular Hemoglobin 32 pg (27-31); Mean Corpuscular Volume 93 fL (80-94); Mean Platelet Volume 7.1 fL (7.4-10.4); Nucleated Red Blood Cells % 0.1; Platelet Count 198 10^3/uL (150-450); Red Blood Count 4.89 10^6 /uL (4.18-5.48); Red Cell Distribution Width 15 % (10.5-15); White Blood Count 6.4 10^3/uL (3.5-10.8)
[2018-12-28 19:26] LABS: Albumin 4.2 g/dL (3.2-5.2); Albumin/Globulin Ratio 1.4 (1-3); BUN/Creatinine Ratio 17.2 (8-20); Calcium 7.9 mg/dL (8.6-10.3); EGFR African American 109.1 (>60); EGFR Non-African American 90.1 (>60); Potassium 4.1 mmol/L (3.5-5.0); Total Bilirubin 1.6 mg/dL (0.2-1.0); Total Protein 7.2 g/dL (6.4-8.9)
--- NOTE | 2018-12-28 22:13 | ED ---
Progress - Progress Note Progress Note: Patient received as a sign out from Dr. Dang at 2200 12/28/18 pending sobriety of patient. 0626 - Patient has sobered up at this time, he will be discharged to home. Re-Evaluation - Re-Evaluation First Eval Re-Evaluation Time: 06:26 Change: Improved Comment: 0626 - Patient has sobered up at this time, he will be discharged to home. Patient is agreeable with this. Second Eval Re-Evaluation Time: 06:41 Comment: 0641 Patient is concerned about his blood pressure. He will be given Librium 50 mg PO and subsequently discharged to home. Course/Dx - Course Course Of Treatment: Patient received as a sign out from Dr. Dang at 2200 12/28 pending sobriety of patient. 0626 - Patient has sobered up at this time, he will be discharged to home. Patient is agreeable with this. 0641 Patient is concerned about his blood pressure. He will be given Librium 50 mg PO and subsequently discharged to home. - Diagnoses Provider Diagnoses: Alcohol intoxication Discharge - Sign-Out/Discharge Documenting (check all that apply): Patient Departure - discharge Patient Received Moderate/Deep Sedation with Procedure: No - Discharge Plan Condition: Stable Disposition: HOME Patient Education Materials: Alcohol Intoxication (ED) Referrals: Jigna Cuello MD [Primary Care Provider] - 3 Days Additional Instructions: PLEASE RETURN TO THE EMERGENCY DEPARTMENT IMMEDIATELY FOR WORSENING OR CONCERNING SYMPTOMS. FOLLOW UP WITH YOUR PRIMARY CARE PHYSICIAN WITHIN THREE DAYS. - Billing Disposition and Condition Condition: STABLE Disposition: Home - Attestation Statements Document Initiated by Rod: Yes Documenting Scribe: TERELL ARZATE Provider For Whom Rod is Documenting (Include Credential): SHARONDA HURLEY MD Scribe Attestation: TERELL Maldonado scribed for SHARONDA HURLEY MD on 12/29/18 at 2013. Scribe Documentation Reviewed: Yes Provider Attestation: The documentation as recorded by the TERELL galan accurately reflects the service I personally performed and the decisions made by me, SHARONDA HURLEY MD Status of Scribe Document: Viewed
[2018-12-29] MEDS ORDERED: chlordiazePOXIDE CAP* 25 MG PO ONE (06:40)
[2018-12-29 07:06] VITALS: BP 153/108
== END 2018-12-29 07:07 | disposition home or self-care (01) ==
LOC: ED 18:20
DX: F10.129 Alcohol abuse with intoxication, unspecified (principal); I25.2 Old myocardial infarction; I25.10 Atherosclerotic heart disease of native coronary artery without angina pectoris; I10 Essential (primary) hypertension; E11.9 Type 2 diabetes mellitus without complications; Z88.2 Allergy status to sulfonamides; J44.9 Chronic obstructive pulmonary disease, unspecified; K21.9 Gastro-esophageal reflux disease without esophagitis; Z87.442 Personal history of urinary calculi; Z86.73 Personal history of transient ischemic attack (TIA), and cerebral infarction without residual deficits; F43.10 Post-traumatic stress disorder, unspecified; Z95.9 Presence of cardiac and vascular implant and graft, unspecified; F17.210 Nicotine dependence, cigarettes, uncomplicated; N50.819 Testicular pain, unspecified; R11.0 Nausea
CPT/HCPCS: 36415; 76870; 80053; 80320; 85025; 99284; A9270-GY; G0480

== ENCOUNTER 2019-02-08 20:16 | Emergency (ER) | payer MEDICARE, MEDICAID ==
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
[2019-02-08] MEDS ORDERED: Famotidine IV* 10 MG/ML 2 ML (20 mg) IV SLOW PU ONE (21:19)
[2019-02-08] MEDS ORDERED: Aspirin 81 mg CHEW TAB* 81 MG TAB.CHEW PO ONE (21:19)
--- OUTSIDE RECORDS SUMMARY | 2019-02-08 21:24 | XMS REPORT | Continuity of Care Document ---
:1960 External Reference #:[id number] Author Name Patricia Fontana MD Address [address] [place] [address] [place] [address] Care Team Providers Name Role Phone Yasmine Stevenson NP Care Team Information Baby Doctor Unavailable Jigna Cuello M.D. Primary Care Physician Unavailable Payers Date Identification Numbers Payment Provider Subscriber Policy Number: [id number] Medicare Sim Chun PayID: [id number] [facility] [address] [place] [address] Policy Number: [id number] Medicaid Sim Chun PayID: [id number] [facility] [employer] [address] [place] [address] Social History Type Date Description Comments Sex Unknown Tobacco Use Start: Unknown Light tobacco smoker (10 or fewer cigarettes/day) Smoking Status Reviewed: 01/25/19 Light tobacco smoker (10 or fewer cigarettes/day) Allergies, Adverse Reactions, Alerts Active Allergies Reaction Severity Comments Date Donepezil 10/19/2018 Acamprosate Calcium 10/19/2018 Medications Active Medications SIG Qnty Indications Ordering Provider Date Lorazepam Take 1 Tablet By Unknown 1mg Tablets Mouth Two Times Daily as Needed For Anxiety Or Insomnia -- Maximum Daily Dose Of 2 Per Day Metoprolol Succinate Take 1 And 1/2 Unknown ER Tablets By Mouth 25mg Tablets ER 24HR One Time Daily Aspirin Chew And Swallow 1 Unknown 81mg Chewtabs Tablet By Mouth Every Day Venlafaxine HCL ER Take 1 Capsule By Unknown 75mg Mouth Every Day Caps ER 24HR Atorvastatin Calcium Take 1 Tablet By Unknown 20mg Mouth AT Bedtime Tablets Folic Acid Take 1 Tablet By Unknown 1mg Tablets Mouth Every Day Gabapentin Take 1 Capsule By Unknown 300mg Capsules Mouth Two Times Daily Hydroxyzine HCL Take 1 Tablet By Unknown 50mg Mouth AT Bedtime Tablets Metformin HCL Take 1 Tablet By Unknown 500mg Mouth Two Times Tablets Daily With A Meal Pantoprazole Sodium Take 1 Tablet By Unknown 40mg Mouth Every Day Tablets DR Bupropion HCL ER (XL) Take 1 Tablet By Unknown Mouth Every Day 150mg Tablets ER 24HR History Medications Nicotrol Inhale 1 Cartridge By Unknown - 01/25/2019 10mg Inhaler Mouth Every 2 Hours as Needed Vital Signs Date Vital Result Comment 01/25/2019 1:57pm Height 68 inches 5'8" Weight 200.00 lb BP Systolic 133 mmHg BP Diastolic 78 mmHg Heart Rate 88 /min BMI (Body Mass Index) 30.4 kg/m2 10/19/2018 1:14pm Height 68 inches 5'8" Weight 204.00 lb BP Systolic 140 mmHg BP Diastolic 86 mmHg Heart Rate 88 /min BMI (Body Mass Index) 31.0 kg/m2 Results Test Date Facility Test Result H/L Range Note CBC W/Auto 01/22/2019 [facility] [place] Blood Count 8.3 10^3/uL N 3.5-10.8 Differential(!) Red Blood Count 4.54 10^6/uL N 4.18-5.48 Hemoglobin 14.6 g/dL N 14.0-18.0 Hematocrit 44 % N 42-52 Mean Corpuscular Volume 97 fL High 80-94 Mean Corpuscular Hemoglobin 32 pg High 27-31 Mean Corpuscular HGB Conc 33 g/dL N 31-36 Red Cell Distribution Width 15 % N 10.5-15 Platelet Count 310 10^3/uL N 150-450 Mean Platelet Volume 7.9 fL N 7.4-10.4 Abs Neutrophils 5.4 10^3/uL N 1.5-7.7 Abs Lymphocytes 1.8 10^3/uL N 1.0-4.8 Abs Monocytes 0.8 10^3/uL N 0-0.8 Abs Eosinophils 0.2 10^3/uL N 0-0.6 Abs Basophils 0.2 10^3/uL N 0-0.2 Abs Nucleated RBC 0.0 10^3/uL Granulocyte % 64.2 % Lymphocyte % 21.6 % Monocyte % 9.1 % Eosinophil % 2.3 % Basophil % 2.8 % Nucleated Red Blood Cells % 0.0 Liver Function Panel 01/22/2019 [facility] Total Protein 7.6 g/dL N 6.4-8.9 Albumin 4.5 g/dL N 3.2-5.2 Globulin 3.1 g/dL N 2-4 Albumin/Globulin Ratio 1.5 N 1-3 Total Bilirubin 1.50 mg/dL High 0.2-1.0 Direct Bilirubin 0.50 mg/dL High 0.03-0.18 Indirect Bilirubin 1.0 mg/dL N 0.3-1.0 Alkaline Phosphatase 93 U/L N 34-104 Alt 61 U/L High 7-52 Ast 72 U/L High 13-39 Laboratory test 10/21/2018 [facility] [place] SEE RESULT BELOW 1 finding Interface Order Hepatitis Acute 10/19/2018 [facility] Hepatitis A AB Nonreactive Nonreactive 2 , 3 PNL ([facility] Igm Hepatitis B Core AB Igm Nonreactive Nonreactive 4 Hepatitis B Surface Ag Nonreactive Nonreactive 5 Hepatitis C Antibody 10/19/2018 [facility] HCV Index < 0.0 Index Hepatitis C Antibody Nonreactive Nonreactive Laboratory test 10/19/2018 [facility] Hepatitis A Igg Negative 6 finding Antibody, Serum Hepatitis B Caroline AB 10/19/2018 [facility] Hepatitis B Surface Not Immune Abnormal Immune Titer AB Hep B Surf AB Level < 3.10 mIU/mL >12 Iron & Iron Binding Capacity 10/19/2018 [facility] Iron 61 g/dL N 50-212 Unsaturated Iron Binding < 454 g/dL Total Iron Binding Capacity 469 g/dL High 250-450 Transferrin 335 mg/dL N 203-362 % Iron Saturation 13 % Low 15-55 Laboratory test finding 10/19/2018 [facility] Alpha 1 Antitrypsin A1a 143 mg/dL 100 - 190 7 Anti Nuclear Antibody 0.2 U 8 Ceruloplasmin 31.8 mg/dL Abnormal 9 Mitochondrial AB AMA M2 Igg <0.1 U 10 Smooth Muscle Antibody Negative Negative 11 Laboratory test finding 10/19/2018 [facility] Inr(!) 1.[address] [place] [address] [phone] Ferritin Ser/Plas Mass/Vol(!) 39.0 ng/dL 24-250 Liver 10/19/2018 [facility] Albumin 4.6 g/dL 3.5-5.2 Function [address] [facility] Serum/Plasma(!) Panel(!) [place] [address] [phone] Alkaline Phosphatase(!) 68 U/L 39-117 Bilirubin Direct Mass/Vol(!) 0.2 mg/dL 0.0-0.6 Bilirubin Total Mass/Vol 0.4 mg/dL 0.2-1.3 Ast - Sgot 45 U/L High 5-34 Alt - SGPT 48 U/L High 10-40 Total Protein 7.1 g/dL 6.2-8.1 CBC W/Auto 04/28/2012 [facility] White Blood <pending> Differential(!) Count Ser Auto CNT RBC Red Blood Count <pending> Hemoglobin Blood <pending> Hematocrit <pending> MCV (Corpuscular Volume) <pending> MCH (Corpuscular Hemoglobin) <pending> MCHC (Corpuscular Hemog Conc) <pending> RDW <pending> Platelet Count Blood Auto CNT <pending> MPV <pending> Lymph% <pending> [place]% <pending> Neutrophil % <pending> Absolute Lymphocytes <pending> Absolute Monocytes <pending> Absolute Neutrophils <pending> Protime W/ 02/19/2012 [facility] PT Prothrombin <pending> Inr(!) [address] [facility] [place] [address] [phone] Inr <pending> CMP(!) 04/28/122 [facility] Sodium(!) <pending> Potassium(!) <pending> Chloride Serum/Plasma(!) <pending> Carbon Dioxide Ser/Plasm(!) <pending> BUN - Urea Nitrogen(!) <pending> Calcium Ser/Plasma Mass/Vol(!) <pending> Creatinine Serum Mass/Vol(!) <pending> Glucose Blood(!) <pending> Uric Acid Ser/Plas Mass/Vol(!) <pending> BUN/Creatinine Ratio(!) <pending> Albumin Serum/Plasma(!) <pending> Alkaline Phosphatase(!) <pending> Bilirubin Total Mass/Vol(!) <pending> Ast - Sgot <pending> Alt - SGPT <pending> Protein, Total(!) <pending> Laboratory test finding 04/28/122 [facility] Acetaminophen <pending > TSH Thyroid Stim Hormone(!) <pending> 1 SEE RESULT BELOW Name: SHILPISIM : [address]: Patricia Fontana MD Acct: [id number] Unit: [id number] AGE: 58 Location: ENDO Re10/21/18 SEX: M Status: DEP REF SPEC: [id number] AYLA: 10/21/18-[address] [facility] DR: Patricia Glover MD REQ: [id number] RECD: 10/21/181242 STATUS: DEJA AGARWAL DR: Yasmine Stevenson [employer] SCI[employer]IST _ ORDERED: LEVEL 4 FINAL DIAGNOSIS Gastroesophageal [...] 1244 END OF REPORT DEPARTMENT OF PATHOLOGY, [address] [place] [address] Tommie Grajeda M.D. Director [facility] # [id number] SEE RESULT BELOW Name: SIM CHUN : [address]: Patricia Fontana MD Acct: [id number] Unit: [id number] AGE: 58 Location: ENDO Re10/21/18 SEX: M Status: DEP REF SPEC: [id number] AYLA: 10/21/18-[address]: Patricia Glover MD REQ: [id number] RECD: 10/21/18 STATUS: DEJA AGARWAL DR: Yasmine Stevenson POULTRY SCIENTIST _ ORDERED: LEVEL 4 FINAL DIAGNOSIS Gastroesophageal [...] 1244 END OF REPORT DEPARTMENT OF PATHOLOGY, [address] [place] [address] Tommie Grajeda M.D. Director [facility] # [id number] Result indicates no past exposure or immunity to hepatitis A infection. REFERENCE VALUE Unvaccinated: Negative Vaccinated: Positive Test Performed by: [facility] - [address] [id number] Test Performed by: [facility] - [address] [address] 8 REFERENCE VALUE <=1.0 (Negative) Test Performed by: [facility] - [address] [address] 9 REFERENCE VALUE 19.0 - 31.0 Test Performed by: [facility] - [facility] [address] [place] [address] 10 REFERENCE VALUE <0.1 (Negative) Test Performed by: [facility] - [address] [address] ADDITIONAL INFORMATION This test was developed and its performance characteristics determined by [facility] in a manner consistent with CLIA requirements. This test has not been cleared or approved by the U.S. Food and Drug Administration. Test Performed by: [address] [address] Procedures Date Code Description Status 10/21/2018 84674 Moderate Sedation Services; Same Phys Each Additional 15 Completed Mins 10/21/2018 79230 Moderate Sedation Services; Same Phys Intl 15 Mins; PT >=5 Completed Years 10/21/2018 92652 EGD+Biopsy Single Or Multiple Completed Encounters Type Date Location Provider Dx Diagnosis Office Visit 10/19/2018 [facility] R94.5 Abnormal results 1:[facility] Font[facility] MD of liver function studies K21.9 Gastro-esophageal reflux disease without esophagitis K22.70 Guzman's esophagus without dysplasia F10.21 Alcohol dependence, in remission Plan of Treatment 01/25/2019 - Patricia Fontana, MDR94.5 Abnormal results of liver function studiesNew Labs:LFT'S W/O Direct Bilirubin (GA, Ordered: 01/25/19K70.0 Alcoholic fatty xcwdhP34.21 Alcohol dependence, in ubxioxajyO38.9 Gastro- esophageal reflux disease without oyypzkljppfF34.70 Guzman's esophagus without lkybscpdbV46.1 Iron deficiencyNew Labs:Iron Deficiency Iron,Tibc,Ferr, Ordered: 01/25/19Z86.010 Personal history of colonic polyps
[2019-02-08 21:38] LABS: ABS Eosinophils 0.2 10^3/ul (0-0.6); ABS Lymphocytes 3.1 10^3/ul (1.0-4.8); ABS Monocytes 0.4 10^3/ul (0-0.8); ABS Neutrophils 2.7 10^3/ul (1.5-7.7); Eosinophil % 2.5 %; Hematocrit 41 % (42-52); Hemoglobin 14.1 g/dL (14.0-18.0); Lymphocyte % 48.7 %; Mean Corpuscular HGB Conc 34 g/dL (31-36); Mean Corpuscular Hemoglobin 32 pg (27-31); Mean Corpuscular Volume 95 fL (80-94); Nucleated Red Blood Cells % 0.1; Platelet Count 159 10^3/uL (150-450); Red Blood Count 4.35 10^6 /uL (4.18-5.48); Red Cell Distribution Width 15 % (10.5-15); White Blood Count 6.5 10^3/uL (3.5-10.8)
[2019-02-08 21:46] LABS: INR 1.33 (0.82-1.09)
[2019-02-08 21:56] LABS: ALT 86 U/L (7-52); Albumin 3.9 g/dL (3.2-5.2); Albumin/Globulin Ratio 1.3 (1-3); Alkaline Phosphatase 97 U/L (34-104); Amylase 59 U/L (29-103); BUN/Creatinine Ratio 16.1 (8-20); Blood Urea Nitrogen 14 mg/dL (6-24); CO2 Carbon Dioxide 25 mmol/L (22-32); Calcium 7.8 mg/dL (8.6-10.3); Chloride 99 mmol/L (101-111); EGFR African American 109.1 (>60); EGFR Non-African American 90.1 (>60); Glucose 151 mg/dL (70-100); Magnesium 1.7 mg/dL (1.9-2.7); Sodium 138 mmol/L (135-145); Total Protein 6.9 g/dL (6.4-8.9)
[2019-02-08 21:58] LABS: Troponin I 0.01 ng/mL (<0.04)
[2019-02-08] MEDS ORDERED: Iodixanol* (CONTRAST) 320 MG/ML 100 ML SDV IV ONE (22:04)
[2019-02-08 22:19] LABS: Alcohol 259 mg/dL (<10)
[2019-02-08 22:20] LABS: Anion Gap 14 mmol/L (2-11)
[2019-02-09 04:14] VITALS: BP 123/71
== END 2019-02-09 04:14 | disposition home or self-care (01) ==
LOC: ED 20:16
DX: R07.89 Other chest pain (principal); F10.129 Alcohol abuse with intoxication, unspecified; Z86.74 Personal history of sudden cardiac arrest; I25.10 Atherosclerotic heart disease of native coronary artery without angina pectoris; E78.00 Pure hypercholesterolemia, unspecified; I10 Essential (primary) hypertension; I25.2 Old myocardial infarction; J44.9 Chronic obstructive pulmonary disease, unspecified; K21.9 Gastro-esophageal reflux disease without esophagitis; G47.30 Sleep apnea, unspecified; Z87.442 Personal history of urinary calculi; F32.9 Major depressive disorder, single episode, unspecified; F41.9 Anxiety disorder, unspecified; F43.10 Post-traumatic stress disorder, unspecified; F17.210 Nicotine dependence, cigarettes, uncomplicated; R00.0 Tachycardia, unspecified; F04 Amnestic disorder due to known physiological condition; K76.0 Fatty (change of) liver, not elsewhere classified
CPT/HCPCS: 36415; 71275; 80053; 80320; 82150; 83690; 83735; 84484; 85025; 85610; 85730; 93005; 96374; 99284; G0480; Q9967

== ENCOUNTER 2019-02-11 09:20 | Inpatient (IN) | payer MEDICARE, MEDICAID ==
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
[2019-02-11 09:56] LABS: ABS Basophils 0.1 10^3/ul (0-0.2); ABS Eosinophils 0.1 10^3/ul (0-0.6); ABS Lymphocytes 1.5 10^3/ul (1.0-4.8); ABS Monocytes 0.3 10^3/ul (0-0.8); ABS Neutrophils 3.8 10^3/ul (1.5-7.7); Eosinophil % 2.4 %; Hematocrit 40 % (42-52); Mean Corpuscular HGB Conc 35 g/dL (31-36); Mean Corpuscular Hemoglobin 34 pg (27-31); Mean Corpuscular Volume 95 fL (80-94); Mean Platelet Volume 7.6 fL (7.4-10.4); Nucleated Red Blood Cells % 0.1; Platelet Count 135 10^3/uL (150-450); Red Blood Count 4.18 10^6 /uL (4.18-5.48); Red Cell Distribution Width 14 % (10.5-15); White Blood Count 5.7 10^3/uL (3.5-10.8)
[2019-02-11 10:12] LABS: Albumin 4.1 g/dL (3.2-5.2); Albumin/Globulin Ratio 1.4 (1-3); Alkaline Phosphatase 102 U/L (34-104); BUN/Creatinine Ratio 7.1 (8-20); Blood Urea Nitrogen 10 mg/dL (6-24); CO2 Carbon Dioxide 20 mmol/L (22-32); Calcium 7.4 mg/dL (8.6-10.3); Chloride 95 mmol/L (101-111); EGFR Non-African American 52.1 (>60); Globulin 2.9 g/dL (2-4); Glucose 189 mg/dL (70-100); Sodium 132 mmol/L (135-145)
[2019-02-11 10:31] LABS: ALT 80 U/L (7-52); Acetaminophen < 15 mcg/mL; Alcohol < 10 mg/dL (<10); Salicylate < 2.50 mg/dL (<30)
[2019-02-11 10:38] LABS: Anion Gap 17 mmol/L (2-11)
[2019-02-11 10:45] LABS: TSH (Thyroid Stimulating Horm) 2.47 mcIU/mL (0.34-5.60)
[2019-02-11] MEDS ORDERED: NS 0.9% 1000 ML** 1,000 ML IV ONE (10:55)
[2019-02-11] MEDS ORDERED: Lorazepam PYXIS KEY PRN (10:59)
[2019-02-11] MEDS ORDERED: LORazepam INJ* 2 MG/ML 1 ML VIAL IV PUSH ONE (10:59)
[2019-02-11] MEDS ORDERED: Thiamine IV 100 MG, Folic Acid IV* 1 MG, Multiple Vitamin IV ADULT* 10 ML in NS 0.9% 10... IV ONE (10:59)
[2019-02-11] MEDS ORDERED: Diazepam TAB(*) 5 MG PO ONE (11:00)
[2019-02-11] MEDS ORDERED: Lorazepam PYXIS KEY ONE (11:13)
[2019-02-11 11:19] LABS: Urine Appearance Cloudy; Urine Bacteria Absent (Absent); Urine Bilirubin Negative (Negative); Urine Blood Negative (Negative); Urine Color Amber; Urine Glucose Negative (Negative); Urine Ketones 1+ (Negative); Urine Nitrite Negative (Negative); Urine Protein 1+(30 mg/dL) (Negative); Urine Red Blood Cell Trace(0-2/hpf) (Absent); Urine Specific Gravity 1.021 (1.010-1.030); Urine Squamous Epithelial Cell Present (Absent); Urine Urobilinogen Positive (Negative); Urine White Blood Cell 2+(11-20/hpf) (Absent)
[2019-02-11 11:29] LABS: Urine Benzodiazepine Screen Presumptive Positive (None Detect); Urine Opiates Screen None Detected (None Detect)
[2019-02-11] MEDS ORDERED: Dextrose 50% Syringe 50 ML* 25 GM/50 ML SYRINGE IV PUSH PRN (12:28)
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
[2019-02-11] MEDS: LORazepam TAB(*) 1 MG PO SCH ×5 (16:11→23:24)
[2019-02-11] MEDS: Insulin LISPRO* 1 UNITS UNIT SUBCUT SCH (17:37)
[2019-02-11] MEDS: hydrOXYzine HCL TAB* 25 MG PO SCH (21:08)
[2019-02-11] MEDS: Gabapentin CAP(*) 300 MG PO SCH (21:08)
[2019-02-12 07:18] LABS: Albumin 3.6 g/dL (3.2-5.2); Albumin/Globulin Ratio 1.2 (1-3); BUN/Creatinine Ratio 8.5 (8-20); Calcium 7.3 mg/dL (8.6-10.3); EGFR African American 137.9 (>60); Globulin 2.9 g/dL (2-4); Indirect Bilirubin 1.3 mg/dL (0.3-1.0); Potassium 2.8 mmol/L (3.5-5.0); Total Bilirubin 2.3 mg/dL (0.2-1.0); Total Protein 6.5 g/dL (6.4-8.9)
[2019-02-12 07:29] LABS: Hematocrit 37 % (42-52); Hemoglobin 12.7 g/dL (14.0-18.0); Mean Corpuscular HGB Conc 34 g/dL (31-36); Mean Corpuscular Hemoglobin 33 pg (27-31); Mean Corpuscular Volume 95 fL (80-94); Red Cell Distribution Width 14 % (10.5-15); White Blood Count 4.3 10^3/uL (3.5-10.8)
--- NOTE | 2019-02-12 07:41 | PN ---
Subjective Date of Service: 02/12/19 Interval History: Resting in bed on assessment. Reports he is occasionally hallucinating as sometimes it appears that the room is a swimming pool, but he is aware it is a hallucination. Reports tremor which is baseline for him. No worsening in tremor. Denies diaphoresis, cp, sob, nausea, vomiting, abd pain, suicidal ideation. Objective Active Medications: Acetaminophen (Tylenol Tab*) 650 mg PO Q4H PRN PRN Reason: FEVER/PAIN Amlodipine Besylate (Norvasc Tab*) 5 mg PO DAILY [facility] Aspirin (Aspirin Ec Tab*) 81 mg PO DAILY [facility] Atorvastatin Calcium (Lipitor*) 20 mg PO DAILY [facility] Bupropion HCl (Wellbutrin Sr Tab*) 150 mg PO DAILY [facility] Dextrose (D50w Syringe 50 Ml*) 12.5 gm IV PUSH .FOR FS < 60 - SS PRN PRN Reason: FS < 60 Folic Acid (Folvite Tab*) 1 mg PO DAILY [facility] Gabapentin (Neurontin Cap(*)) 300 mg PO BID [facility] Last Admin: 02/11/19 21:08 Dose: 300 mg Hydroxyzine HCl (Atarax Tab*) 25 mg PO BEDTIME [facility] Last Admin: 02/11/19 21:08 Dose: 25 mg Potassium Chloride (Potassium Chloride 20 Meq/100 Ml Ivpremix*) 20 meq in 100 mls @ 50 mls/hr IV Q2H [facility] Stop: 02/12/19 11:59 Insulin Human Lispro (Humalog*) 0 units SUBCUT AC [facility]; Protocol Last Admin: 02/11/19 17:37 Dose: Not Given Lorazepam (Ativan Tab(*)) 0 - 6 mg PO .PER [facility] PROTOCOL [facility]; Protocol Last Admin: 02/11/19 23:24 Dose: 4 mg Lorazepam (Ativan Tab(*)) 1 mg PO BID PRN PRN Reason: ANXIETY Metoprolol Succinate (Toprol Xl Tab*) 37.5 mg PO DAILY [facility] Miscellaneous (Ativan Pyxis Bacon) 1 ea N/A .ATIVAN IV BACON PRN PRN Reason: PYXIS BACON Multivitamins/Minerals (Theragran/Minerals Tab*) 1 tab PO DAILY [facility] Pantoprazole Sodium (Protonix Tab*) 40 mg PO DAILY [facility] Potassium Chloride (Klor Con Er Tab*) 20 meq PO Q4HR BARB Stop: 02/12/19 14:01 Thiamine HCl (Vitamin B-1 Tab*) 100 mg PO DAILY [facility] Venlafaxine HCl (Effexor Xr Cap*) 75 mg PO DAILY [facility] Vital Signs - 8 hr 02/12/19 02/12/19 02/12/19 01:10 01:43 03:06 Temperature 97.4 F Pulse Rate 93 90 Respiratory 20 20 Rate Blood Pressure 134/81 140/86 (mmHg) O2 Sat by Pulse 94 Oximetry 02/12/19 05:07 Temperature 96.8 F Pulse Rate 88 Respiratory 18 Rate Blood Pressure 143/74 (mmHg) O2 Sat by Pulse 95 Oximetry Oxygen Devices in Use Now: None Appearance: Comfortable, NAD Eyes: No Scleral Icterus, PERRLA Ears/Nose/Mouth/Throat: Clear Oropharnyx, Mucous Membranes Moist Neck: NL Appearance and Movements; NL JVP Respiratory: Symmetrical Chest Expansion and Respiratory Effort, Clear to Auscultation Cardiovascular: NL Sounds; No Murmurs; No JVD, RRR, No Edema Abdominal: NL Sounds; No Tenderness; No Distention Lymphatic: No Cervical Adenopathy Extremities: No Clubbing, Cyanosis Skin: No Rash or Ulcers Neurological: Alert and Oriented x 3, NL Muscle Strength and Tone Nutrition: Taking PO's Result Diagrams: 02/12/19 06:33 02/12/19 15:58 Additional Lab and Data: Laboratory Results - last 24 hr 02/12/19 02/12/19 02/12/19 06:33 06:33 07:16 WBC 4.3 RBC 3.90 L Hgb 12.7 L Hct 37 L MCV 95 H MCH 33 H MCHC 34 RDW 14 Plt Count 98 L MPV 8.1 Neut % (Auto) 55.0 Lymph % (Auto) 31.6 [place] % (Auto) 5.7 Eos % (Auto) 6.7 Baso % (Auto) 1.0 Absolute Neuts (auto) 2.4 Absolute Lymphs (auto) 1.4 Absolute Monos (auto) 0.2 Absolute Eos (auto) 0.3 Absolute Basos (auto) 0.0 Absolute Nucleated RBC 0.0 Nucleated RBC % 0.2 Hem Pathologist Commnt Sodium 138 Potassium 2.8 L Chloride 99 L Carbon Dioxide 27 Anion Gap 12 H BUN 6 Creatinine 0.71 Est GFR ( Amer) 137.9 Est GFR (Non-Af Amer) 114.0 BUN/Creatinine Ratio 8.5 Glucose 191 H POC Glucose (mg/dL) 170 H Calcium 7.3 L Magnesium Total Bilirubin 2.30 H Direct Bilirubin 1.00 H Indirect Bilirubin 1.3 H AST 143 H ALT 68 H Alkaline Phosphatase 92 Total Protein 6.5 Albumin 3.6 Globulin 2.9 Albumin/Globulin Ratio 1.2 Vitamin B12 470 02/12/19 02/12/19 02/12/19 12:16 15:58 16:38 WBC RBC Hgb Hct MCV MCH MCHC RDW Plt Count MPV Neut % (Auto) Lymph % (Auto) [place] % (Auto) Eos % (Auto) Baso % (Auto) Absolute Neuts (auto) Absolute Lymphs (auto) Absolute Monos (auto) Absolute Eos (auto) Absolute Basos (auto) Absolute Nucleated RBC Nucleated RBC % Hem Pathologist Commnt Sodium 136 Potassium 3.7 Chloride 101 Carbon Dioxide 26 Anion Gap 9 BUN 8 Creatinine 0.77 Est GFR ( Amer) 125.6 Est GFR (Non-Af Amer) 103.8 BUN/Creatinine Ratio 10.4 Glucose 174 H POC Glucose (mg/dL) 181 H 164 H Calcium 7.7 L Magnesium 1.0 L Total Bilirubin Direct Bilirubin Indirect Bilirubin AST ALT Alkaline Phosphatase Total Protein Albumin Globulin Albumin/Globulin Ratio Vitamin B12 Microbiology and Other Data: Microbiology 02/11/19 10:57 Urine Urine Culture - Final No Growth (<1,000 CFU/mL) Assess/Plan/Problems-Billing Assessment: 58 yr old male with pmh of substance abuse, Korsakoff dementia, hx of MN with stenting, CAD, CVA, DM, HTN, HLD; who presented to the ED with alcohol withdrawal and requesting detox - Patient Problems (1) Electrolyte abnormality Comment: - K+ 2.8. Replacement ordered. Repeat BMP at 1600 revealed improved K+ - Cont tele - Mag added and noted to be 1.0; replacement ordered. - Cont to closely evaluate electrolytes (2) Alcohol withdrawal Comment: - Cont WAM - Continue folic acid and thiamine - Plan for discharge to [facility]patient [facility] in [place] on Friday - Hx of Korsakoff dementia (3) CAD (coronary artery disease) Comment: - Continue aspirin, atorvastatin. (4) Depression Comment: - Continue Wellbutrin and Effexor - No suicidal ideation. (5) Diabetes Comment: - Hold metformin - Cont lispro SSI (6) Hypertension Comment: - Continue Norvasc and Metoprolol. (7) Nicotine abuse Comment: - Nicotine patch ordered (8) Neuropathy Comment: - Gabapentin (9) Guzman esophagus Comment: - Cont PPI (10) DVT prophylaxis Comment: - SCDs (11) Full code status Comment: Attending: Caren Ferguson
[2019-02-12] MEDS: Metoprolol Succinate XL TAB* 25 MG PO SCH (08:17)
[2019-02-12] MEDS: LORazepam TAB(*) 1 MG PO SCH ×2 (08:17→20:53)
[2019-02-12] MEDS: Folic Acid TAB* 1 MG PO SCH (08:18)
[2019-02-12] MEDS: Pantoprazole TAB * 40 MG TAB PO SCH (08:18)
[2019-02-12] MEDS: Thiamine TAB* 100 MG TAB PO SCH (08:18)
[2019-02-12] MEDS: Venlafaxine EXT RELEASE CAP* 75 MG PO SCH (08:18)
[2019-02-12] MEDS: Multivitamins/Minerals TAB PO SCH (08:19)
[2019-02-12] MEDS: Aspirin EC TAB* 81 MG TAB.EC PO SCH (08:19)
[2019-02-12] MEDS: Acetaminophen TAB* 325 MG PO PRN ×2 (08:19→21:08)
[2019-02-12] MEDS: Atorvastatin* 20 MG TAB PO SCH (08:19)
[2019-02-12] MEDS: Gabapentin CAP(*) 300 MG PO SCH ×2 (08:19→20:55)
[2019-02-12] MEDS: buPROPion SR TAB.SR* 150 MG PO SCH (08:19)
[2019-02-12] MEDS: amLODIPine TAB* 5 MG PO SCH (08:19)
[2019-02-12] MEDS: Potassium Chlor TAB* 20 MEQ TAB.ER PO SCH ×2 (08:19→13:42)
[2019-02-12] MEDS: Insulin LISPRO* 1 UNITS UNIT SUBCUT SCH ×3 (08:20→16:56)
[2019-02-12 08:45] LABS: ABS Eosinophils 0.3 10^3/ul (0-0.6); ABS Lymphocytes 1.4 10^3/ul (1.0-4.8); ABS Monocytes 0.2 10^3/ul (0-0.8); ABS Neutrophils 2.4 10^3/ul (1.5-7.7); Eosinophil % 6.7 %; Lymphocyte % 31.6 %; Mean Platelet Volume 8.1 fL (7.4-10.4); Nucleated Red Blood Cells % 0.2; Platelet Count 98 10^3/uL (150-450)
[2019-02-12] MEDS: KCL 20 MEQ/100 ML IVPREMIX* 20 MEQ/100 ML BAG IV SCH ×2 (09:37→13:39)
[2019-02-12 16:40] LABS: BUN/Creatinine Ratio 10.4 (8-20); Calcium 7.7 mg/dL (8.6-10.3); EGFR African American 125.6 (>60); EGFR Non-African American 103.8 (>60); Potassium 3.7 mmol/L (3.5-5.0)
[2019-02-12] MEDS: Nicotine PATCH 21 MG/24 HR* PATCH TRANSDERM SCH (16:57)
[2019-02-12] MEDS ORDERED: Magnesium Sulfate 2 GM IV* 2 GM/50 ML BAG IVPB ONE ×2 (19:06→21:30)
[2019-02-12] MEDS: Nicotine Patch Removal NOTE FOLLOW UP SCH (20:54)
[2019-02-12] MEDS: hydrOXYzine HCL TAB* 25 MG PO SCH (20:55)
[2019-02-12] MEDS ORDERED: Nicotine Patch Removal NOTE PATCH OFF SCH (21:00)
[2019-02-13] MEDS: LORazepam TAB(*) 1 MG PO SCH ×7 (00:25→11:07)
[2019-02-13 06:56] LABS: BUN/Creatinine Ratio 14.9 (8-20); Calcium 7.9 mg/dL (8.6-10.3); EGFR African American 147.4 (>60); EGFR Non-African American 121.8 (>60); Magnesium 1.8 mg/dL (1.9-2.7); Potassium 3.3 mmol/L (3.5-5.0)
[2019-02-13] MEDS ORDERED: Magnesium Sulfate 2 GM IV* 2 GM/50 ML BAG IVPB ONE (07:51)
[2019-02-13] MEDS: Nicotine PATCH 21 MG/24 HR* PATCH TRANSDERM SCH (08:40)
[2019-02-13] MEDS: KCL 20 MEQ/100 ML IVPREMIX* 20 MEQ/100 ML BAG IV SCH ×2 (08:40→10:52)
[2019-02-13] MEDS: Insulin LISPRO* 1 UNITS UNIT SUBCUT SCH ×3 (08:46→18:28)
[2019-02-13] MEDS: Multivitamins/Minerals TAB PO SCH (08:47)
[2019-02-13] MEDS: Metoprolol Succinate XL TAB* 25 MG PO SCH (08:47)
[2019-02-13] MEDS: buPROPion SR TAB.SR* 150 MG PO SCH (08:47)
[2019-02-13] MEDS: Pantoprazole TAB * 40 MG TAB PO SCH (08:48)
[2019-02-13] MEDS: Folic Acid TAB* 1 MG PO SCH (08:48)
[2019-02-13] MEDS: Atorvastatin* 20 MG TAB PO SCH (08:48)
[2019-02-13] MEDS: Venlafaxine EXT RELEASE CAP* 75 MG PO SCH (08:48)
[2019-02-13] MEDS: Gabapentin CAP(*) 300 MG PO SCH ×2 (08:48→21:13)
[2019-02-13] MEDS: Thiamine TAB* 100 MG TAB PO SCH (08:49)
[2019-02-13] MEDS: amLODIPine TAB* 5 MG PO SCH (08:49)
[2019-02-13] MEDS: Aspirin EC TAB* 81 MG TAB.EC PO SCH (08:49)
[2019-02-13] MEDS ORDERED: Haloperidol INJ IV/IM* 5 MG/ML AMP IV SLOW PU PRN (09:59)
--- NOTE | 2019-02-13 10:05 | PN ---
Subjective Date of Service: 02/13/19 Interval History: Patient denies any pain today except for slight tenderness to palpation over epigastric area. Patient is still feeling shaky and endorses hallucinations and frequent disorientation stating "the luna look like the ceiling". Patient has minor nausea. Patient denies F/C, vomiting, CP, SOB, or other pain. Nursing states patient has been combative and threatening to leave, but patient is currently very calm and states he is very happy to stay overnight. Family History: Unchanged from Admission Social History: Unchanged from Admission Past Medical History: Unchanged from Admission Objective Active Medications: Acetaminophen (Tylenol Tab*) 650 mg PO Q4H PRN PRN Reason: FEVER/PAIN Last Admin: 02/12/19 21:08 Dose: 650 mg Amlodipine Besylate (Norvasc Tab*) 5 mg PO DAILY [facility] Last Admin: 02/13/19 08:49 Dose: 5 mg Aspirin (Aspirin Ec Tab*) 81 mg PO DAILY [facility] Last Admin: 02/13/19 08:49 Dose: 81 mg Atorvastatin Calcium (Lipitor*) 20 mg PO DAILY [facility] Last Admin: 02/13/19 08:48 Dose: 20 mg Bupropion HCl (Wellbutrin Sr Tab*) 150 mg PO DAILY [facility] Last Admin: 02/13/19 08:47 Dose: 150 mg Dextrose (D50w Syringe 50 Ml*) 12.5 gm IV PUSH .FOR FS < 60 - SS PRN PRN Reason: FS < 60 Folic Acid (Folvite Tab*) 1 mg PO DAILY [facility] Last Admin: 02/13/19 08:48 Dose: 1 mg Gabapentin (Neurontin Cap(*)) 300 mg PO BID [facility] Last Admin: 02/13/19 08:48 Dose: 300 mg Haloperidol Lactate (Haldol Inj Iv/Im*) 5 mg IV SLOW PU Q6H PRN PRN Reason: AGITATION Hydroxyzine HCl (Atarax Tab*) 25 mg PO BEDTIME [facility] Last Admin: 02/12/19 20:55 Dose: 25 mg Potassium Chloride (Potassium Chloride 20 Meq/100 Ml Ivpremix*) 20 meq in 100 mls @ 50 mls/hr IV Q2H [facility] Stop: 02/13/19 11:59 Last Admin: 02/13/19 08:40 Dose: 50 mls/hr Insulin Human Lispro (Humalog*) [address] [facility]; Protocol Last Admin: 02/13/19 08:46 Dose: 2 units Lorazepam (Ativan Tab(*)) 0 - [address] [facility] PROTOCOL [facility]; Protocol Last Admin: 02/13/19 09:07 Dose: 2 mg Lorazepam (Ativan Tab(*)) 1 mg PO BID PRN PRN Reason: ANXIETY Metoprolol Succinate (Toprol Xl Tab*) 37.5 mg PO DAILY [facility] Last Admin: 02/13/19 08:47 Dose: 37.5 mg Miscellaneous (Ativan Pyxis [place]) 1 ea N/A .ATIVAN IV SEGOVIA PRN PRN Reason: PYXIS SEGOVIA Multivitamins/Minerals (Theragran/Minerals Tab*) 1 tab PO DAILY [facility] Last Admin: 02/13/19 08:47 Dose: 1 tab Nicotine (Nicotine Patch 21 Mg/24 Hr*) 1 patch TRANSDERM DAILY@0800 [facility] Last Admin: 02/13/19 08:40 Dose: 1 patch Pantoprazole Sodium (Protonix Tab*) 40 mg PO DAILY [facility] Last Admin: 02/13/19 08:48 Dose: 40 mg Pharmacy Profile Note (Nicotine Patch Removal Note*) 1 note FOLLOW UP 2100 [facility] Last Admin: 02/12/19 20:54 Dose: 1 note Thiamine HCl (Vitamin B-1 Tab*) 100 mg PO DAILY [facility] Last Admin: 02/13/19 08:49 Dose: 100 mg Venlafaxine HCl (Effexor Xr Cap*) 75 mg PO DAILY [facility] Last Admin: 02/13/19 08:48 Dose: 75 mg Vital Signs - 8 hr 02/13/19 02/13/19 02/13/19 02:14 02:15 02:45 Temperature Pulse Rate Respiratory 20 20 20 Rate Blood Pressure (mmHg) O2 Sat by Pulse Oximetry 02/13/19 02/13/19 02/13/19 03:00 03:15 03:47 Temperature 98.2 F Pulse Rate 74 Respiratory 20 20 18 Rate Blood Pressure 124/67 (mmHg) O2 Sat by Pulse 97 Oximetry 02/13/19 02/13/19 02/13/19 04:29 05:00 05:44 Temperature 98.1 F Pulse Rate 76 Respiratory 18 18 18 Rate Blood Pressure 111/77 (mmHg) O2 Sat by Pulse 99 Oximetry 02/13/19 02/13/19 02/13/19 05:51 05:52 07:19 Temperature Pulse Rate Respiratory 18 18 20 Rate Blood Pressure (mmHg) O2 Sat by Pulse Oximetry 02/13/19 02/13/19 02/13/19 07:25 07:52 08:48 Temperature Pulse Rate Respiratory 20 18 18 Rate Blood Pressure (mmHg) O2 Sat by Pulse Oximetry 02/13/19 09:07 Temperature Pulse Rate Respiratory 17 Rate Blood Pressure (mmHg) O2 Sat by Pulse Oximetry Oxygen Devices in Use Now: None Appearance: Patient is a 58yo male who appears stated age and is sitting in the bed in [facility]. Eyes: No Scleral Icterus, PERRLA Ears/Nose/Mouth/Throat: NL Teeth, Lips, Gums, Clear Oropharnyx, Mucous Membranes Moist Neck: NL Appearance and Movements; NL JVP, Trachea Midline Respiratory: Symmetrical Chest Expansion and Respiratory Effort, Clear to Auscultation Cardiovascular: NL Sounds; No Murmurs; No JVD, RRR, No Edema Abdominal: NL Sounds; No Tenderness; No Distention, No Hepatosplenomegaly Lymphatic: No Cervical Adenopathy Extremities: No Edema, No Clubbing, Cyanosis Skin: No Rash or Ulcers, No Nodules or Sclerosis Neurological: NL Sensation, NL Muscle Strength and Tone, - - Alert, Oriented to self Result Diagrams: 02/12/19 06:33 02/13/19 06:24 Additional Lab and Data: Laboratory Results - last 24 hr Microbiology and Other Data: Microbiology 02/11/19 10:57 Urine Urine Culture - Final No Growth (<1,000 CFU/mL) Assess/Plan/Problems-Billing Assessment: 58 yr old male with pmh of substance abuse, Korsakoff dementia, hx of [place] with stenting, CAD, CVA, DM, HTN, HLD; who presented to the ED with alcohol withdrawal and requesting detox - Patient Problems (1) Alcohol withdrawal Current Visit: No Status: Acute Code(s): F10.239 - ALCOHOL DEPENDENCE WITH WITHDRAWAL, UNSPECIFIED SNOMED Code(s): 912217544 Comment: - Cont WAM, Patient continues to score - Continue folic acid and thiamine - Plan for discharge to Inpatient Rehab Facility in [place] on Friday - Hx of Korsakoff dementia - Patient has very poor insight into condition and lacks capacity at this time to leave AMA. (2) Electrolyte abnormality Current Visit: Yes Status: Acute Code(s): E87.8 - OTH DISORDERS OF ELECTROLYTE AND FLUID BALANCE, NEC SNOMED Code(s): 712278382 Comment: - K+ 2.8. Replacement ordered. Repeat BMP at 1600 revealed improved K+ - Cont tele - Mag added and noted to be 1.0; replacement ordered. - Cont to closely evaluate electrolytes (3) Neuropathy Current Visit: Yes Status: Acute Code(s): G62.9 - POLYNEUROPATHY, UNSPECIFIED SNOMED Code(s): 755900253 Comment: - Gabapentin (4) Sleep apnea assessment Current Visit: No Status: Active SNOMED Code(s): 713884830 - Sleep apnea assessment Comment: Apnea. (5) Acute alcoholism Current Visit: No Status: Acute Priority: High Onset Date: 04/23/14 Code (s): F10.20 - ALCOHOL DEPENDENCE, UNCOMPLICATED SNOMED Code(s): 29778877 (6) Alcohol-induced mood disorder Current Visit: No Status: Acute Priority: High Onset Date: 04/08/14 Code (s): F10.94 - ALCOHOL USE, UNSPECIFIED WITH ALCOHOL-INDUCED MOOD DISORDER SNOMED Code(s): 33037535 (7) CAD (coronary artery disease) Current Visit: No Status: Acute Code(s): I25.10 - ATHSCL HEART DISEASE OF [place] CORONARY ARTERY W/O ANG PCTRS SNOMED Code(s): 71468298 Comment: - Continue aspirin, atorvastatin. (8) Chest pain Current Visit: No Status: Acute Priority: High Onset Date: 04/23/14 Code (s): R07.9 - CHEST PAIN, UNSPECIFIED SNOMED Code(s): 67189305 (9) Depression Current Visit: No Status: Acute Code(s): F32.9 - MAJOR DEPRESSIVE DISORDER, SINGLE EPISODE, UNSPECIFIED SNOMED Code(s): 54502032 Comment: - Continue Wellbutrin and Effexor - No suicidal ideation. (10) Diabetes Current Visit: No Status: Acute Code(s): E11.9 - TYPE 2 DIABETES MELLITUS WITHOUT COMPLICATIONS SNOMED Code(s): 16577934 Comment: - Hold metformin - Cont lispro SSI (11) Hypertension Current Visit: No Status: Acute Code(s): I10 - ESSENTIAL (PRIMARY) HYPERTENSION SNOMED Code(s): 53656930 Comment: - Normotensive - Continue Norvasc and Metoprolol. 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
[2019-02-13] MEDS: LORazepam INJ* 2 MG/ML 1 ML VIAL IV PUSH SCH ×2 (15:17→21:14)
[2019-02-13] MEDS: LORazepam TAB(*) 1 MG PO PRN (21:13)
[2019-02-13] MEDS: hydrOXYzine HCL TAB* 25 MG PO SCH (21:14)
[2019-02-13] MEDS: Nicotine Patch Removal NOTE FOLLOW UP SCH (21:18)
[2019-02-14 06:56] LABS: BUN/Creatinine Ratio 13.7 (8-20); Calcium 8.4 mg/dL (8.6-10.3); EGFR African American 133.5 (>60); EGFR Non-African American 110.4 (>60); Magnesium 1.8 mg/dL (1.9-2.7); Potassium 3.7 mmol/L (3.5-5.0)
[2019-02-14] MEDS ORDERED: Magnesium Sulfate 2 GM IV* 2 GM/50 ML BAG IVPB ONE (07:01)
[2019-02-14] MEDS: Nicotine PATCH 21 MG/24 HR* PATCH TRANSDERM SCH (09:15)
[2019-02-14] MEDS: Atorvastatin* 20 MG TAB PO SCH (09:15)
[2019-02-14] MEDS: Gabapentin CAP(*) 300 MG PO SCH ×2 (09:16→20:28)
[2019-02-14] MEDS: amLODIPine TAB* 5 MG PO SCH (09:16)
[2019-02-14] MEDS: Aspirin EC TAB* 81 MG TAB.EC PO SCH (09:16)
[2019-02-14] MEDS: buPROPion SR TAB.SR* 150 MG PO SCH (09:16)
[2019-02-14] MEDS: Folic Acid TAB* 1 MG PO SCH (09:16)
[2019-02-14] MEDS: Venlafaxine EXT RELEASE CAP* 75 MG PO SCH (09:16)
[2019-02-14] MEDS: Thiamine TAB* 100 MG TAB PO SCH (09:17)
[2019-02-14] MEDS: Multivitamins/Minerals TAB PO SCH (09:17)
[2019-02-14] MEDS: Insulin LISPRO* 1 UNITS UNIT SUBCUT SCH ×3 (09:17→17:50)
[2019-02-14] MEDS: Metoprolol Succinate XL TAB* 25 MG PO SCH (09:18)
[2019-02-14] MEDS: Pantoprazole TAB * 40 MG TAB PO SCH (09:20)
--- NOTE | 2019-02-14 12:58 | PN ---
Subjective Date of Service: 02/14/19 Interval History: Patient is much more appropriate today. Patient denies tremulousness, Chest Pain , SOB, abdominal pain, diarrhea, patient states his gait has improved. Patient denies dysuria, F/C, or other pain. Patient is now very willing and motivated to go to rehab tomorrow. Family History: Unchanged from Admission Social History: Unchanged from Admission Past Medical History: Unchanged from Admission Objective Active Medications: Acetaminophen (Tylenol Tab*) 650 mg PO Q4H PRN PRN Reason: FEVER/PAIN Last Admin: 02/12/19 21:08 Dose: 650 mg Amlodipine Besylate (Norvasc Tab*) 5 mg PO DAILY [facility] Last Admin: 02/14/19 09:16 Dose: 5 mg Aspirin (Aspirin Ec Tab*) 81 mg PO DAILY [facility] Last Admin: 02/14/19 09:16 Dose: 81 mg Atorvastatin Calcium (Lipitor*) 20 mg PO DAILY [facility] Last Admin: 02/14/19 09:15 Dose: 20 mg Bupropion HCl (Wellbutrin Sr Tab*) 150 mg PO DAILY [facility] Last Admin: 02/14/19 09:16 Dose: 150 mg Dextrose (D50w Syringe 50 Ml*) 12.5 gm IV PUSH .FOR FS < 60 - SS PRN PRN Reason: FS < 60 Folic Acid (Folvite Tab*) 1 mg PO DAILY [facility] Last Admin: 02/14/19 09:16 Dose: 1 mg Gabapentin (Neurontin Cap(*)) 300 mg PO BID [facility] Last Admin: 02/14/19 09:16 Dose: 300 mg Haloperidol Lactate (Haldol Inj Iv/Im*) 5 mg IV SLOW PU Q6H PRN PRN Reason: AGITATION Last Admin: 02/13/19 15:19 Dose: 5 mg Hydroxyzine HCl (Atarax Tab*) 25 mg PO BEDTIME [facility] Last Admin: 02/13/19 21:14 Dose: 25 mg Insulin Human Lispro (Humalog*) 0 units SUBCUT AC [facility]; Protocol Last Admin: 02/14/19 09:17 Dose: 2 units Lorazepam (Ativan Tab(*)) 1 mg PO BID PRN PRN Reason: ANXIETY Last Admin: 02/13/19 21:13 Dose: 1 mg Lorazepam (Ativan Inj*) 0 - 6 mg IV PUSH .PER [facility] PROTOCOL [facility]; Protocol Last Admin: 02/13/19 21:14 Dose: 2 mg Metoprolol Succinate (Toprol Xl Tab*) 37.5 mg PO DAILY [facility] Last Admin: 02/14/19 09:18 Dose: 37.5 mg Miscellaneous (Ativan Pyxis Bacon) 1 ea N/A .ATIVAN IV BACON PRN PRN Reason: PYXIS BACON Multivitamins/Minerals (Theragran/Minerals Tab*) 1 tab PO DAILY [facility] Last Admin: 02/14/19 09:17 Dose: 1 tab Nicotine (Nicotine Patch 21 Mg/24 Hr*) 1 patch TRANSDERM DAILY@0800 [facility] Last Admin: 02/14/19 09:15 Dose: 1 patch Pantoprazole Sodium (Protonix Tab*) 40 mg PO DAILY [facility] Last Admin: 02/14/19 09:20 Dose: 40 mg Pharmacy Profile Note (Nicotine Patch Removal Note*) 1 note FOLLOW UP 2100 [facility] Last Admin: 02/13/19 21:18 Dose: 1 note Thiamine HCl (Vitamin B-1 Tab*) 100 mg PO DAILY [facility] Last Admin: 02/14/19 09:17 Dose: 100 mg Venlafaxine HCl (Effexor Xr Cap*) 75 mg PO DAILY [facility] Last Admin: 02/14/19 09:16 Dose: 75 mg Vital Signs - 8 hr 02/14/19 02/14/19 02/14/19 07:00 07:40 08:00 Temperature 97.6 F Pulse Rate 68 Respiratory 20 20 20 Rate Blood Pressure 130/78 (mmHg) O2 Sat by Pulse 98 Oximetry 02/14/19 02/14/19 02/14/19 08:55 09:16 11:05 Temperature 98.7 F Pulse Rate 81 79 Respiratory 20 20 20 Rate Blood Pressure 124/67 124/78 (mmHg) O2 Sat by Pulse 98 96 Oximetry Oxygen Devices in Use Now: None Appearance: Patient is a 58yo male who appears stated age and is sitting in the bed in [facility]. Eyes: No Scleral Icterus, PERRLA Ears/Nose/Mouth/Throat: NL Teeth, Lips, Gums, Clear Oropharnyx, Mucous Membranes Moist Neck: NL Appearance and Movements; NL JVP, Trachea Midline Respiratory: Symmetrical Chest Expansion and Respiratory Effort, Clear to Auscultation Cardiovascular: NL Sounds; No Murmurs; No JVD, RRR, No Edema Abdominal: NL Sounds; No Tenderness; No Distention, No Hepatosplenomegaly Lymphatic: No Cervical Adenopathy Extremities: No Edema, No Clubbing, Cyanosis Skin: No Rash or Ulcers, No Nodules or Sclerosis Neurological: Alert and Oriented x 3, NL Sensation, NL Muscle Strength and Tone , - - Slight right handed tremor. Result Diagrams: 02/12/19 06:33 02/14/19 06:30 Additional Lab and Data: Laboratory Results - last 24 hr Microbiology and Other Data: Microbiology 02/11/19 10:57 Urine Urine Culture - Final No Growth (<1,000 CFU/mL) Assess/Plan/Problems-Billing Assessment: 58 yr old male with pmh of substance abuse, Korsakoff dementia, hx of [place] with stenting, CAD, CVA, DM, HTN, HLD; who presented to the ED with alcohol withdrawal and requesting detox - Patient Problems (1) Alcohol withdrawal Current Visit: No Status: Acute Code(s): F10.239 - ALCOHOL DEPENDENCE WITH WITHDRAWAL, UNSPECIFIED SNOMED Code(s): 699249800 Comment: - Cont WAM, Patient has not been scoring. - Continue folic acid and thiamine - Plan for discharge to Inpatient Rehab Facility in [place] on Friday - Hx of Korsakoff dementia - Patient now has insight to leave AMA, but no longer is interested in doing so. (2) Electrolyte abnormality Current Visit: Yes Status: Acute Code(s): E87.8 - OTH DISORDERS OF ELECTROLYTE AND FLUID BALANCE, NEC SNOMED Code(s): 012107850 Comment: - Continue to supplement K+ and Mg++ as needed (3) Neuropathy Current Visit: Yes Status: Acute Code(s): G62.9 - POLYNEUROPATHY, UNSPECIFIED SNOMED Code(s): 151584821 Comment: - Gabapentin (4) CAD (coronary artery disease) Current Visit: No Status: Acute Code(s): I25.10 - ATHSCL HEART DISEASE OF [place] CORONARY ARTERY W/O ANG PCTRS SNOMED Code(s): 82107505 Comment: - Continue aspirin, atorvastatin. (5) Depression Current Visit: No Status: Acute Code(s): F32.9 - MAJOR DEPRESSIVE DISORDER, SINGLE EPISODE, UNSPECIFIED SNOMED Code(s): 97840927 Comment: - Continue Wellbutrin and Effexor - No suicidal ideation. (6) Diabetes Current Visit: No Status: Acute Code(s): E11.9 - TYPE 2 DIABETES MELLITUS WITHOUT COMPLICATIONS SNOMED Code(s): 53035148 Comment: - Hold metformin - Cont lispro SSI (7) Hypertension Current Visit: No Status: Acute Code(s): I10 - ESSENTIAL (PRIMARY) HYPERTENSION SNOMED Code(s): 82684796 Comment: - Normotensive - Continue Norvasc and Metoprolol. (8) Rojas esophagus Current Visit: Yes Status: Acute Code(s): K22.70 - ROJAS'S ESOPHAGUS WITHOUT DYSPLASIA SNOMED Code(s): 763679350 Comment: - Cont PPI (9) Nicotine abuse Current Visit: No Status: Acute Code(s): Z72.0 - TOBACCO USE SNOMED Code(s ): 617336021 Comment: - Nicotine patch ordered (10) Full code status Current Visit: No Status: Acute Code(s): Z78.9 - OTHER SPECIFIED HEALTH STATUS SNOMED Code(s): 648393920 Comment: (11) DVT prophylaxis Current Visit: No Status: Acute Code(s): MDP6103 - SNOMED Code(s): 806337943 Comment: - SCDs Status and Disposition: Inpatient, Discharge to Rehab tomorrow.
[2019-02-14] MEDS: LORazepam TAB(*) 1 MG PO PRN ×2 (14:10→20:29)
[2019-02-14] MEDS: Nicotine Patch Removal NOTE FOLLOW UP SCH (20:29)
[2019-02-14] MEDS: hydrOXYzine HCL TAB* 25 MG PO SCH (20:29)
[2019-02-15 09:18] VITALS: BP 129/79
[2019-02-15] MEDS: Insulin LISPRO* 1 UNITS UNIT SUBCUT SCH (09:24)
[2019-02-15] MEDS: Nicotine PATCH 21 MG/24 HR* PATCH TRANSDERM SCH (09:25)
[2019-02-15] MEDS: Folic Acid TAB* 1 MG PO SCH (09:28)
[2019-02-15] MEDS: Metoprolol Succinate XL TAB* 25 MG PO SCH (09:28)
[2019-02-15] MEDS: Atorvastatin* 20 MG TAB PO SCH (09:28)
[2019-02-15] MEDS: Multivitamins/Minerals TAB PO SCH (09:28)
[2019-02-15] MEDS: Gabapentin CAP(*) 300 MG PO SCH (09:29)
[2019-02-15] MEDS: amLODIPine TAB* 5 MG PO SCH (09:29)
[2019-02-15] MEDS: Thiamine TAB* 100 MG TAB PO SCH (09:29)
[2019-02-15] MEDS: Pantoprazole TAB * 40 MG TAB PO SCH (09:29)
[2019-02-15] MEDS: Aspirin EC TAB* 81 MG TAB.EC PO SCH (09:29)
[2019-02-15] MEDS: Venlafaxine EXT RELEASE CAP* 75 MG PO SCH (09:29)
[2019-02-15] MEDS: buPROPion SR TAB.SR* 150 MG PO SCH (09:30)
--- NOTE | 2019-02-16 00:14 | DS ---
CC: Dr. Jigna Cuello * DISCHARGE SUMMARY: DATE OF ADMISSION: 02/11/19 DATE OF DISCHARGE: 02/15/19 PRIMARY CARE PROVIDER: Dr. Jigna Cuello. ATTENDING PHYSICIAN WHILE IN THE HOSPITAL: Dr. Brandy Robles.* (DICTATED BY MIRYAM DING) PRIMARY DISCHARGE DIAGNOSIS: Acute alcohol withdrawal, resolved. SECONDARY DISCHARGE DIAGNOSES: 1. Korsakoff dementia. 2. History of myocardial infarction, status post stenting. 3. History of cerebrovascular accident, no residual deficits. 4. Tremor. 5. Coronary artery disease. 6. Diabetes mellitus, type 2. 7. Hypertension. 8. Hyperlipidemia. 9. Obstructive sleep apnea. 10. Guzman's esophagus. 11. Peripheral neuropathy. 12. Anxiety. 13. Major depressive disorder. 14. Fatty liver disease. STUDIES DONE WHILE IN THE HOSPITAL: Electrocardiogram from 02/11/19 read as normal sinus rhythm, no ST segment elevation or depression. No hypertrophy or enlargement. Q waves indicating possible previous inferior infarct. Rate of 102, QTc of 496. MEDICATIONS AT DISCHARGE: 1. Wellbutrin 150 mg p.o. daily. 2. Hydroxyzine 25 mg p.o. at bedtime. 3. Gabapentin 300 mg p.o. b.i.d. 4. Thiamine 100 mg p.o. daily. 5. Tylenol 650 mg p.o. q.4 hours as needed. 6. Aspirin 81 mg p.o. daily. 7. Lipitor 20 mg p.o. daily. 8. Folic acid 1 mg p.o. daily. 9. Metformin 500 mg p.o. b.i.d. 10. Venlafaxine 75 mg p.o. daily. 11. Lorazepam 1 mg p.o. b.i.d. as needed. 12. Norvasc 5 mg p.o. daily. 13. Protonix 1 tab p.o. daily. 14. Multivitamin 1 tab p.o. daily. 15. Metoprolol succinate 37.5 mg p.o. daily. New medication at discharge: Tylenol. Medications discontinued at discharge: None. HOSPITAL COURSE: This is a brief summary of patient's presentation. For more details, please see the history and physical from Radha Fishman NP on . In brief, the patient is a 58-year-old male with past medical history significant for above, who presented to the emergency department after he had a relapse of binge drinking approximately for 2 weeks before his admission to the hospital. He had been sober for approximately 6 months before that. However, when he does binge drink, he drinks approximately 2 pints of vodka a day per his report. The patient came to the emergency department for detox and was in active alcohol withdrawal. The patient has a history of seizures with alcohol withdrawal. The patient was admitted to the hospital, given thiamine, multivitamins, folic acid and started on the [facility] protocol. The patient initially responded very well to this, but then became agitated, requesting to leave, requiring antipsychotic medication for his own safety. The patient's gait was markedly abnormal. In the hospital, the patient had slight elevations in LFTs consistent with alcohol abuse. The patient had a normal vitamin B12 level. The patient's magnesium was markedly low and was replaced. The patient improved greatly from 02/13/19 to 02/14/19, being much more coherent, but with residual effects, requiring Ativan. The patient then on 02/15/19 was stable and amenable for discharge to [facility] where he was previously arranged through his driver license reviewing officer for him to go for alcohol rehab. The patient is unwilling to wait in his hospital room due to claustrophobia and poor experiences with the hospital, so he requested to be discharged to wait downstairs for his ride. It was discussed with him that this was out of his own cognizance, and that if he did not go [facility], it could result in a higher risk of his relapse into alcohol abuse. He states he understood and was willing to take this risk. PHYSICAL EXAMINATION ON THE DAY OF DISCHARGE: General: The patient is a 58- year- old male who appears stated age and sitting comfortably in the bed, in no acute distress. Vital Signs: Temperature 97.6, pulse rate 76, respiratory rate 18, oxygen saturation 99% on room air, blood pressure 129/79. HEENT: Head : Normocephalic, atraumatic. Sclerae anicteric. No conjunctival injection. Nasal mucosa is moist. Oral mucosa is moist. No pharyngeal erythema, discharge , or exudate. Neck: Supple, nontender. No lymphadenopathy. No carotid bruits auscultated. No JVD. Cardiac: Tachycardic. No clicks, murmurs, gallops, or rubs. Pulses 2+ in the bilateral dorsalis pedis, posterior tibialis , and radial areas. Respiratory: Clear to auscultation bilaterally. No wheezes, rales, or rhonchi. Good air exchange bilaterally. Abdomen: Soft, nontender, nondistended. Bowel sounds present. Normoactive in all 4 quadrants. No hepatosplenomegaly. No abdominal bruits auscultated. No hepatojugular reflux. Genitourinary: No suprapubic or CVA tenderness. Skin: Clean, dry, and intact. No rash. Neuro: Cranial nerves II through XII intact. No focal deficits. Alert and oriented x3. Intention tremor in the bilateral upper extremities. Psychiatric: Pleasant and cooperative. Occasionally anxious. DISCHARGE PLAN: The patient will be discharged to the cafeteria to wait for his driver license reviewing officer to transport him to [facility] for inpatient drug and alcohol rehab. The patient, if he does not go to [facility], has discussed his extensive support system at home including his brother, driver license reviewing officer, sponsor, and Alcoholics Anonymous meetings; the patient was encouraged to follow up with these after his discharge regardless. The patient had no other medical problems while in the hospital and had returned to his baseline. Upon discharge , the patient should have a consistent carbohydrate, health-healthy diet, engage in activity as tolerated. The patient's home meds were resumed. TIME SPENT: Approximately 60 minutes was spent on this discharge of this patient, 30 of which was spent [id number] with the patient obtaining history and physical and discussing treatment plan. MIRYAM DING [id number]/CPS #: [id number] [place]
== END 2019-02-15 11:30 | DRG 897 ==
LOC: ED 09:20 → UNDOADMOB 11:57 → MED 11:57 → OBSVTOIN 02-12 15:31 → MED 02-13 10:24
PROVIDERS: ADMIT Internal Medicine; ATTEND Hospitalist
DX: F10.239 Alcohol dependence with withdrawal, unspecified (principal); F33.9 Major depressive disorder, recurrent, unspecified; N17.9 Acute kidney failure, unspecified; E11.42 Type 2 diabetes mellitus with diabetic polyneuropathy; F10.26 Alcohol dependence with alcohol-induced persisting amnestic disorder; Y90.0 Blood alcohol level of less than 20 mg/100 ml; F10.24 Alcohol dependence with alcohol-induced mood disorder; R25.1 Tremor, unspecified; I25.10 Atherosclerotic heart disease of native coronary artery without angina pectoris; I10 Essential (primary) hypertension; E83.42 Hypomagnesemia; E78.5 Hyperlipidemia, unspecified; G47.33 Obstructive sleep apnea (adult) (pediatric); E87.6 Hypokalemia; K22.70 Barrett's esophagus without dysplasia; E86.0 Dehydration; F41.9 Anxiety disorder, unspecified; K76.0 Fatty (change of) liver, not elsewhere classified; R07.9 Chest pain, unspecified; F17.210 Nicotine dependence, cigarettes, uncomplicated; I25.2 Old myocardial infarction; Z86.73 Personal history of transient ischemic attack (TIA), and cerebral infarction without residual deficits; Z79.84 Long term (current) use of oral hypoglycemic drugs; Z79.1 Long term (current) use of non-steroidal anti-inflammatories (NSAID); Z79.82 Long term (current) use of aspirin; Z79.899 Other long term (current) drug therapy; Z88.2 Allergy status to sulfonamides; Z88.8 Allergy status to other drugs, medicaments and biological substances; Z82.49 Family history of ischemic heart disease and other diseases of the circulatory system; Z83.3 Family history of diabetes mellitus; Z80.49 Family history of malignant neoplasm of other genital organs; Z95.5 Presence of coronary angioplasty implant and graft
CPT/HCPCS: 36415; 80048; 80053; 80076; 80307; 80320; 80329; 81003; 81015; 82607; 83735; 84443; 85025; 85060; 87086; 93005; 99284; A9270-GY; G0378; G0480; J1630; J2060; J3411; J3475; J3480

== ENCOUNTER 2019-03-17 18:02 | Inpatient (IN) | payer MEDICARE, MEDICAID ==
--- OUTSIDE RECORDS SUMMARY | 2019-03-17 19:01 | XMS REPORT | Continuity of Care Document ---
:1960 External Reference #:[id number] Author Name Ru Jeri Care Team Providers Name Role Phone Jigna Cuello M.D. Primary Care Physician Unavailable Payers Date Identification Numbers Payment Provider Subscriber Policy Number: [id number] Medicare Sim Chun PayID: [id number] [address] [place] [address] Policy Number: [id number] Medicaid Sim Chun Group Name: 1 [address] PayID: [id number] [place] [address] Problems Active Problems Provider Date Benign essential hypertension Raciel Rm M.D., [facility], [facility] Onset: 2013 Chronic ischemic heart disease Raciel Rm M.D., [facility], [facility] Onset: 2013 Chest pain Raciel Rm M.D., [facility], [facility] Onset: 10/12/2013 Hyperlipidemia Raciel Rm M.D., [facility], [facility] Onset: 10/12/2013 Multi vessel coronary artery disease Anju Phelps M.D. 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 disability currently ETOH Use Consumes 2 pints of liquor per day ETOH Use Has consumed alcohol Sober as of 07/23/18 in the past Recreational Drug Use Denies Drug Use Tobacco Use Start: Unknown Light tobacco smoker (10 or fewer cigarettes/day) Recreational Drug Use Former Drug User Smoking Status Reviewed: 03/02/19 Light tobacco smoker (10 or fewer cigarettes/day) Exercise Type/Frequency Exercises regularly Exercise Type/Frequency Walks 5 times a week 5 mile a day and gym Allergies, Adverse Reactions, Alerts Active Allergies Reaction Severity Comments Date Donepezil nightmares, hallucinations Severe 10/12/2013 Acamprosate Calcium Contact dermatitis 07/23/2018 Inactive Allergies NKDA 01/03/2011 Medications Active Medications SIG Qnty Indications Ordering Date Provider Thiamine HCL 1 by mouth every 30tabs Jigna Cuello MD 03/02/2019 100mg day Tablets Bupropion 2 tabs by mouth 60tabs Jigna Cuello MD 03/02/2019 Hydrochloride ER (XL) every morning 150mg Tablets ER 24HR Norvasc 1 by mouth every 90tabs I25.10 Yasmine Stevenson 08/11/2018 5mg Tablets day [facility] Lorazepam 1 by mouth twice 45tabs Jigna Culelo MD 07/28/2018 1mg Tablets a day as needed for anxiety or isomnia Cpap Mask And Supplies use as directed 1units G47.33 Jigna Cuello MD 07/23 Device Venlafaxine HCL ER 1 by mouth every 30caps Jigna Cuello MD 75mg day Caps ER 24HR Pantoprazole Sodium 1 by mouth every 90tabs Jigna Cuello MD 40mg day Tablets DR Gabapentin 1 by mouth two 60caps Jigna Cuello MD 300mg Capsules times a day Hydroxyzine HCL take 1 tab by 90tabs Jigna Cuello MD 50mg mouth at at Tablets bedtime Acetaminophen ER 1 tab by mouth 60tabs Jigna Cuello MD 650mg q4 hours as Tablets ER needed pain Folic Acid 1 by mouth every 90tabs Jigna Cuello MD 1mg Tablets day Metformin HCL take 1 tablet by 180tapamela Cuello MD 500mg mouth two times Tablets daily with a meal Atorvastatin Calcium take 1 tablet at 90tabs Jigna Cuello MD 20mg bedtime Tablets Aspirin Low Dose 1 by mouth every 90units Jigna Cuello MD 81mg day Chewtabs Metoprolol Succinate 1.5 tablets by 135tabs Yasmine Stevenson ER mouth every day [facility] 25mg Tablets ER 24HR Nitrostat one sl q5min up QS Unknown 0.4mg Tablets to 3 doses prn Sub History Medications Norvasc 1 by mouth every 90tabs I25.10 Yasmine 08/11/2018 - 2.5mg Tablets day Graham, [facility] 08/11/2018 Acamprosate Calcium 2 tab by mouth 180tabs F10.27 Jigna Cuello 06/24/2018 - 333mg three times a day 07/23/2018 Tablets Ramjoseph 1 cap by mouth 30caps I10 Jigna Cuello, 06/24/2018 - 10mg Capsules every day 08/11/2018 Omeprazole 1 by mouth every 90caps Dylan Iniguez 06/24/2018 - 20mg Capsules day Sally, 07/26/2018 DR Johnson,[facility] Altace 1 tab by mouth 90caps Raciel Rm, 10/12/2013 - 5mg Capsules every day Elizabeth, [facility], 06/24/2018 [facility] Donepezil HCL 1 every day for 1 60tabs Bhaskar Koch 04/02/2013 - 5mg Tablets month then 2 qd Elizabeth Grant 10/12/2013 Diazepam 1 tab 30 minutes 2tabs Bhaskar Koch 03/30/2013 - 5mg Tablets before mri, bobby Grant M.D. 04/02/2013 take a second tablet if needed Pantoprazole Sodium 1 po qd 90tabs Denton - 40mg MD Geraldo 06/24/2018 Tablets Guanfacine HCL 1 po qd 30tabs [place], - 1mg MD Geraldo 07/09/2018 Tablets Aspirin Chew 1 Tablet By Unknown - 81mg Chewtabs Mouth Every Day 06/24/2018 Bupropion HCL ER (XL) Take 1 Tablet By Unknown - Mouth Every 06/24/2018 150mg Tablets ER 24HR Morning Citalopram Take 1 Tablet By Unknown - Hydrobromide Mouth Every Day 06/24/2018 20mg Tablets Ramipril Take 1 Capsule By Unknown - 5mg Capsules Mouth Every Day 06/24/2018 Omeprazole Take 1 Capsule By Unknown - 20mg Capsules Mouth Every Day 06/24/2018 DR Propranolol HCL Take 2 Tablets By Unknown - 10mg Mouth Two Times 07/09/2018 Tablets Daily Hydroxyzine HCL Take 1 Tablet By Unknown - 25mg Mouth AT Bedtime 06/24/2018 Tablets as Needed Gabapentin Take Two Capsules Unknown - 100mg Capsules By Mouth Three 07/23/2018 Times A Day Nitroglycerin Place One Tablet Unknown - 0.4mg Under The Tongue 06/24/2018 Tablets Sub as Needed For Chest Pain, May Repeat Venlafaxine HCL take one tablet Unknown - 40mg daily. 08/04/2018 Tablets Maalox Max 30 milliliters by Unknown - mouth q4hr as 03/01/[id number] needed indigestion Suspension Nicotrol 1 cartridges every 168units Jigna Cuello, - 10mg Inhaler 2 hours as needed 03/02/2019 Lorazepam po q 8 hrs prn Unknown - 1mg Tablets 07/23/2018 Nicotine Transdermal use 1 patch every Unknown - System 24 hours 03/02/2019 21mg/24HR Patches 24HR Thiamine HCL 1 by mouth every 30tabs Jigna Cuello, - 100mg day 03/02/2019 Tablets Bupropion HCL ER (XL) 1 by mouth every 90tabs Jigna Cuello, - day 03/02/2019 150mg Tablets ER 24HR Flomax 1 by mouth every Unknown - 0.4mg Capsules day 08/04/2018 Nicotine apply one patch 30units Unknown - 14mg/24HR daily 10/11/2013 Patches 24HR Altace 1 po qd 90caps Unknown - 2.5mg Capsules 10/12/2013 Trazodone HCL 1 po qhs 30tabs Unknown - 50mg 07/23/2018 Tablets Multivitamin one po qd Unknown - 10/30/2018 Nicorette 1 po qid prn Unknown - 2mg 10/11/2013 Acetaminophen 2 tablets po q4hrs 100tabs Unknown - 325mg prn 03/17/2013 Tablets Fluticasone Propionate 2 sprays each 16gm Unknown - nostril qday prn 08/04/2018 50mcg/Act Suspension Gabapentin 1 po qid 90caps Unknown - 100mg Capsules 04/02/2013 Hydroxyzine Pamoate 1 cap by mouth q6 60caps Jigna Cuello, - 25mg hours as needed 07/23/2018 Capsules for itching Citalopram 1 po qd PT Not 30tabs Denton - Hydrobromide Sure MD Geraldo 08/04/2018 20mg Tablets Crestor 1 po qd 30tabs Unknown - 20mg Tablets 03/17/2013 Lipitor one tab po qhs 30tabs Unknown - 20mg Tablets 09/30/2013 Venlafaxine HCL 3 po qd 90tabs Unknown - 75mg 04/02/2013 Tablets Methylphenidate one po q Am 135tabs Unknown - 18mg 04/02/2013 Tablets Wellbutrin SR 1 po qday Unknown - 150mg 10/10/2013 Tablets ER 12HR Wellbutrin XL 1 po qd 30tabs Unknown - 300mg 07/09/2018 Tablets ER 24HR Augmentin 1 po bid last dose 10tabs Unknown - 500-125mg on 09/18/13 09/20/2013 Tablets Carafate take one (1) 30tabs Unknown - 1gm Tablets tablet po tid with 07/09/2018 meds Lisinopril 1 po qd 30tabs Denton, - 10mg Tablets MD Geraldo 10/12/2013 Medications Administered in Office Medication SIG Qnty Indications Ordering Provider Date Technetium TC 99M Jeb Gerardo DO [facility] 08/04/2018 Tetrofosmin, Per Unit Dose Up To 40 Millicuries Injection Vital Signs Date Vital Result Comment 03/02/2019 4:05pm Height 67 inches 5'7" Weight 198.00 lb Heart Rate 77 /min BP Systolic Sitting 121 mmHg BP Diastolic Sitting 83 mmHg Body Temperature 98.2 F O2 % BldC Oximetry 97 % BMI (Body Mass Index) 31.0 kg/m2 12/01/2018 10:05am Height 67 inches 5'7" Weight [...] Test Result H/L Range Note Laboratory test 03/02/2019 [facility] Hemoglobin A1c 7.2 High 5-7 finding Laboratory test 02/11/2019 [facility] Potassium Redraw TNP mmol/ L 3.5-5.0 [address] [place] [address] [phone] Ast Redraw TNP U/L 13-39 2 CBC Auto Diff 02/11/2019 [facility] White Blood 5.7 10^3/uL N 3.5-10.[address] [place] [address] [phone] Red Blood Count 4.18 10^6/uL N 4.18-5.48 Hemoglobin 14.0 g/dL N 14.0-18.0 Hematocrit 40 % Low 42-52 Mean Corpuscular Volume 95 fL High 80-94 Mean Corpuscular Hemoglobin 34 pg High 27-31 Mean Corpuscular HGB Conc 35 g/dL N 31-36 Red Cell Distribution Width 14 % N 10.5-15 Platelet Count 135 10^3/uL Low 150-450 Mean Platelet Volume 7.6 fL N 7.4-10.4 Abs Neutrophils 3.8 10^3/uL N 1.5-7.7 Abs Lymphocytes 1.5 10^3/uL N 1.0-4.8 Abs Monocytes 0.3 10^3/uL N 0-0.8 Abs Eosinophils 0.1 10^3/uL N 0-0.6 Abs Basophils 0.1 10^3/uL N 0-0.2 Abs Nucleated RBC 0.0 10^3/uL Granulocyte % 65.7 % Lymphocyte % 26.0 % Monocyte % 4.6 % Eosinophil % 2.4 % Basophil % 1.3 % Nucleated Red Blood Cells % 0.1 Comp Metabolic Panel 02/11/2019 [facility] Sodium 132 mmol/L Low 135-[address] [place] [id number] [phone] Chloride 95 mmol/L Low 101-111 Co2 Carbon Dioxide 20 mmol/L Low 22-32 Glucose 189 mg/dL High 70-100 Blood Urea Nitrogen 10 mg/dL N 6-24 Creatinine 1.40 mg/dL High 0.67-1.17 BUN/Creatinine Ratio 7.1 Low 8-20 Calcium 7.4 mg/dL Low 8.6-10.3 Total Protein 7.0 g/dL N 6.4-8.9 Albumin 4.1 g/dL N 3.2-5.2 Globulin 2.9 g/dL N 2-4 Albumin/Globulin Ratio 1.4 N 1-3 Total Bilirubin 1.80 mg/dL High 0.2-1.0 Alkaline Phosphatase 102 U/L N 34-104 Egfr Non- 52.1 >60 Egfr 63.0 >60 3 Alt 80 U/L High 7-52 Potassium TNP mmol/L 3.5-5.0 4 Anion Gap 17 mmol/L High 2-11 Ast TNP U/L 13-39 5 Laboratory test 02/11/2019 [facility] Acetaminophen < 15 g/mL [address] [place] [address] [phone] Alcohol < 10 mg/dL N <10 Salicylate < 2.50 mg/dL <30 TSH (Thyroid Stim Horm) 2.47 mcIU/mL N 0.34-5.60 Urinalysis Profile 02/11/2019 [facility] Urine Color [place] [address] [place] [address] [phone] Urine Appearance Cloudy Urine Specific Allons 1.021 N 1.010-1.030 Urine pH 5.0 N 5-9 Urine Urobilinogen Positive Abnormal Negative Urine Ketones 1+ Abnormal Negative Urine Protein 1+(30 mg/dL) Abnormal Negative Urine Leukocytes Trace Abnormal Negative Urine Blood Negative Negative Urine Nitrite Negative Negative Urine Bilirubin Negative Negative Urine Glucose Negative Negative Urine White Blood Cell 2+(11-20/hpf) Abnormal Absent Urine Red Blood Cell Trace(0-2/hpf) Absent Urine Bacteria Absent Absent Urine Squamous Epithelial Cell Present Abnormal Absent Urine Hyaline Casts Present Abnormal Absent Urine Drug 02/11/2019 [facility] Urine None Detected None Detect SCR ED & DR[place] [address] Screen [phone] Urine Barbiturates Screen None Detected None Detect Urine Benzodiazepine Screen Presumptive Posi <SEE NOTE> Abnormal None Detect 7 Urine Cannabinoids Screen Presumptive Posi <SEE NOTE> Abnormal None Detect 8 Urine Cocaine Screen None Detected None Detect Urine Opiates Screen None Detected None Detect Urine Phencyclidine Screen None Detected None Detect 9 Urine Culture And 02/11/2019 [facility] Urine Culture SEE RESULT [address] [place] [address] [phone] Laboratory test 02/09/2019 [facility] Troponin-I 0.01 ng/mL < 0.[address] (TnI) [place] [address] [phone] Laboratory test 02/08/2019 [facility] Magnesium 1.7 mg/dL Low 1.9-[address] [place] [address] [phone] Amylase 59 U/L N 29-103 Lipase 47 U/L N 11.0-82.0 Troponin-I (TnI) 0.01 ng/mL <0.04 12 Alcohol 259 mg/dL High <10 Comp Metabolic Panel 02/08/2019 [facility] Sodium 138 mmol/L N 135-[address] [place] [address] [phone] Chloride 99 mmol/L Low 101-111 Co2 Carbon Dioxide 25 mmol/L N 22-32 Glucose 151 mg/dL High 70-100 Blood Urea Nitrogen 14 mg/dL N 6-24 Creatinine 0.87 mg/dL N 0.67-1.17 BUN/Creatinine Ratio 16.1 N 8-20 Calcium 7.8 mg/dL Low 8.6-10.3 Total Protein 6.9 g/dL N 6.4-8.9 Albumin 3.9 g/dL N 3.2-5.2 Globulin 3.0 g/dL N 2-4 Albumin/Globulin Ratio 1.3 N 1-3 Total Bilirubin 1.30 mg/dL High 0.2-1.0 Alkaline Phosphatase 97 U/L N 34-104 Alt 86 U/L High 7-52 Egfr Non- 90.1 >60 Egfr 109.1 >60 13 Potassium TNP mmol/L 3.5-5.0 14 Anion Gap 14 mmol/L High 2-11 Ast TNP U/L 13-39 15 Laboratory test 02/08/2019 [facility] Partial 34.0 N 26.0- 36.[address] [place] [address] Time PTT [phone] Inr/Protime 02/08/2019 [facility] Inr 1.33 High 0.82-1.[address] [place] [address] [phone] CBC Auto Diff 02/08/2019 [facility] White Blood 6.5 10^3/uL N 3.5-10.8 [place] [address] [phone] Red Blood Count 4.35 10^6/uL N 4.18-5.48 Hemoglobin 14.1 g/dL N 14.0-18.0 Hematocrit 41 % Low 42-52 Mean Corpuscular Volume 95 fL High 80-94 Mean Corpuscular Hemoglobin 32 pg High 27-31 Mean Corpuscular HGB Conc 34 g/dL N 31-36 Red Cell Distribution Width 15 % N 10.5-15 Platelet Count 159 10^3/uL N 150-450 Mean Platelet Volume 7.0 fL Low 7.4-10.4 Abs Neutrophils 2.7 10^3/uL N 1.5-7.7 Abs Lymphocytes 3.1 10^3/uL N 1.0-4.8 Abs Monocytes 0.4 10^3/uL N 0-0.8 Abs Eosinophils 0.2 10^3/uL N 0-0.6 Abs Basophils 0.0 10^3/uL N 0-0.2 Abs Nucleated RBC 0.0 10^3/uL Granulocyte % 42.2 % Lymphocyte % 48.7 % Monocyte % 6.4 % Eosinophil % 2.5 % Basophil % 0.2 % Nucleated Red Blood Cells % 0.1 CBC Auto Diff 12/28/2018 [facility] White Blood 6.4 10^3/uL N 3.5-10.[address] [place] [address] [phone] Red Blood Count 4.89 10^6/uL N 4.18-5.48 Hemoglobin 15.6 g/dL N 14.0-18.0 Hematocrit 46 % N 36-46 Mean Corpuscular Volume 93 fL N 80-94 Mean Corpuscular Hemoglobin 32 pg High 27-31 Mean Corpuscular HGB Conc 34 g/dL N 31-36 Red Cell Distribution Width 15 % N 10.5-15 Platelet Count 198 10^3/uL N 150-450 Mean Platelet Volume 7.1 fL Low 7.4-10.4 Abs Neutrophils 3.3 10^3/uL N 1.5-7.7 Abs Lymphocytes 2.6 10^3/uL N 1.0-4.8 Abs Monocytes 0.4 10^3/uL N 0-0.8 Abs Eosinophils 0 10^3/uL N 0-0.6 Abs Basophils 0.1 10^3/uL N 0-0.2 Abs Nucleated RBC 0 10^3/uL Granulocyte % 51.3 % Lymphocyte % 41.0 % Monocyte % 5.9 % Eosinophil % 0.5 % Basophil % 1.3 % Nucleated Red Blood Cells % 0.1 Comp Metabolic Panel 12/28/2018 [facility] Sodium 141 mmol/L N 135-145 [address] [place] [address] [phone] Potassium 4.1 mmol/L N 3.5-5.0 Chloride 99 mmol/L Low 101-111 Co2 Carbon Dioxide 29 mmol/L N 22-32 Anion Gap 13 mmol/L High 2-11 Glucose 159 mg/dL High 70-100 Blood Urea Nitrogen 15 mg/dL N 6-24 Creatinine 0.87 mg/dL N 0.67-1.17 BUN/Creatinine Ratio 17.2 N 8-20 Calcium 7.9 mg/dL Low 8.6-10.3 Total Protein 7.2 g/dL N 6.4-8.9 Albumin 4.2 g/dL N 3.2-5.2 Globulin 3.0 g/dL N 2-4 Albumin/Globulin Ratio 1.4 N 1-3 Total Bilirubin 1.60 mg/dL High 0.2-1.0 Alkaline Phosphatase 96 U/L N 34-104 Alt 99 U/L High 7-52 Ast 237 U/L High 13-39 Egfr Non- 90.1 >60 Egfr 109.1 >60 17 Laboratory test 12/28/2018 [facility] Alcohol 392 mg/dL High < 10 [address] [place] [address] [phone] Laboratory test 11/23/2018 [facility] Hemoglobin A1c 7.6 High 5-7 finding Lipid Panel - 11/05/2018 [facility] Creatine 152 U/L N 10-223 [address] [facility] Kinase(CK) [place] [address] [phone] Comp Metabolic 11/05/2018 [facility] Sodium 138 mmol/L N 135- 145 Panel [address] [place] [address] [phone] Potassium 4.6 mmol/L N 3.5-5.0 Chloride 103 [...] Egfr Non- 93.9 >60 Egfr 113.6 >60 18 Lipid Profile 11/05/2018 [facility] Triglycerides 310 mg/dL 19 (Trig/Chol/HDL) [address] [place] [address] [phone] Cholesterol 170 mg/dL 20 HDL Cholesterol 45.2 mg/dL 21 LDL Cholesterol 63 mg/dL 22 Inr/Protime 11/05/2018 [facility] Inr 0.98 N 0.77-1.[address] [place] [address] [phone] Laboratory test 10/21/2018 [facility] Surgical SEE RESULT [address] [place] [address] Order [phone] Comp Metabolic 08/26/2018 [facility] Sodium 139 mmol/L N 135- [address] [place] [address] [phone] Potassium 3.9 mmol/L N 3.5-5.0 Chloride 97 [...] Egfr Non- 80.5 >60 Egfr 97.3 >60 24 Urine Culture And 06/30/2018 [facility] Urine Culture SEE RESULT [address] [place] [address] [phone] Laboratory test 06/30/2018 [facility] Pathologist (SEE NOTE) [address] [place] [address] [phone] Manual 06/30/2018 [facility] Neutrophil % 38 % N 38-[address] [place] [address] [phone] Lymphocytes % 50 % High 25-47 Monocytes % 7 % N 0-7 Eosinophils % 1 % N 0-6 Basophil % 4 % High 0-2 Abs Neutrophils 3.0 10^3/uL N 1.5-7.7 Abs Lymphocytes 4.0 10^3/uL N 1.0-4.8 Abs Monocytes 0.6 10^3/uL N 0-0.8 Abs Eosinophils 0.1 10^3/uL N 0-0.6 Abs Basophils 0.3 10^3/uL High 0-0.2 RBC Morphology Normal Normal Technical Review Performed By [id number] CBC Auto Diff 06/30/2018 [facility] White Blood 8.0 10^3/uL N 3.5-10.[address] [place] [address] [phone] Red Blood Count 4.97 10^6/uL N 4.00-5.40 [...] 3.5 10^3/uL N 1.5-7.7 Laboratory test 06/30/2018 [facility] Creatine 105 U/L N 10- [address] Kinase(CK) [place] [address] [phone] Acetaminophen < 15 g/mL 27 Alcohol 314 mg/dL High <10 Salicylate < 2.50 mg/dL <30 TSH (Thyroid Stim Horm) 2.59 mcIU/mL N 0.34-5.60 Comp Metabolic Panel 06/30/2018 [facility] Sodium 140 mmol/L N 135-[address] [place] [address] [phone] Potassium 4.2 mmol/L N 3.5-5.0 Chloride 98 [...] Egfr Non- 93.9 >60 Egfr 113.6 >60 28 Urine Drug 06/30/2018 [facility] Amphetamine Ur None Detected None Detect SCR ED & [address] [place] [address] [phone] Barbiturates Urine Screen None Detected None Detect Benzodiazepine Urine Screen Presumptive Posi <SEE NOTE> Abnormal None Detect 29 Urine Cannabinoids Screen None Detected None Detect Urine Cocaine Screen None Detected None Detect Urine Opiates Screen None Detected None Detect Urine Phencyclidine Screen None Detected None Detect 30 Urinalysis Profile 06/30/2018 [facility] Urine Color Yellow [address] [place] [address] [phone] Urine Appearance Clear Urine Specific Allons 1.018 N 1.010-1.030 Urine pH 5.0 N 5-9 Urine Urobilinogen Negative Negative Urine Ketones Negative Negative Urine Protein Negative Negative Urine Leukocytes Negative Negative Urine Blood 2+ Abnormal Negative Urine Nitrite Negative Negative Urine Bilirubin Negative Negative Urine Glucose Negative Negative Urine White Blood Cell Trace(0-5/hpf) Absent Urine Red Blood Cell 2+(6-10/hpf) Abnormal Absent Urine Bacteria Absent Absent Laboratory test finding 06/24/2018 [facility] Hemoglobin A1c 7.0 5-7 Glucose Fingerstick 243 1 Specimen Hemolyzed. Result may not be valid. Unable to report test result due to hemolysis. 2 Unable to report test result due to hemolysis. 3 Because ethnic data is not always readily [...] 15-29 5 Kidney failure <15 (or dialysis) 4 Specimen Hemolyzed. Result may not be valid. Unable to report test result due to hemolysis. 5 Unable to report test result due to hemolysis. 6 Therapeutic concentration: <50 ug/mL Toxic concentration: >120 ug/mL 7 Presumptive Positive Presumptive positive results are unconfirmed. 8 Presumptive Positive Presumptive positive results are unconfirmed. 9 The urine specimen was tested at the listed cutoffs: Drug class test level (ng/mL) Amphetamines 500 Barbiturates 200 Benzodiazepine metabolites 200 Cocaine metabolites 150 Cannabinoids 50 Opiates 300 Pcp 25 Specimen was received without chain of custody. Results should be used for medical purposes only. 10 SEE RESULT BELOW Name: SIM CHUN : [address]: Barbara Rocha DO Acct: [id number] Unit: [id number] AGE: 58 Location: [facility] 411- Re02/11/19 SEX: M Status: ADM Mona SPEC: [id number] AYLA: 02/11/19 [facility] DR: Louis Mayo MD REQ: [id number] RECD: 02/11/19 STATUS: KALLIE AGARWAL DR: Jigna Cuello MD _ SOURCE: URINE SPDESC: ORDERED: Urine Culture Procedure Result Reported Site Urine Culture Final 02/12/19- 1212 ML No Growth (<1,000 CFU/mL) * ML - Main Lab . END OF REPORT DEPARTMENT OF PATHOLOGY, [address] [place] [address] Tommie Grajeda M.D. Director [facility] # [id number] 11 Troponin-I testing on Plasma Separator Tubes (PST) has a known false positive rate of 0.20-0.40%. All positive troponins reflex immediately to secondary confirmatory testing. Using the [employer] DxI 800 Access Immunoassay systems, the 99th percentile upper reference limit was demonstrated to be < 0.03 ng/mL. 12 Troponin-I testing on Plasma Separator Tubes (PST) has a known false positive rate of 0.20-0.40%. All positive troponins reflex immediately to secondary confirmatory testing. Using the [employer] DxI 800 Access Immunoassay systems, the 99th percentile upper reference limit was demonstrated to be < 0.03 ng/mL. 13 Because ethnic data is not always readily [...] 15-29 5 Kidney failure <15 (or dialysis) 14 Specimen Hemolyzed. Result may not be valid. Unable to report test result due to hemolysis. 15 Unable to report test result due to hemolysis. 16 Standard intensity warfarin therapeutic range: 2.0-3.0 High intensity warfarin therapeutic range: 2.5-3.5 17 Because ethnic data is not always readily [...] 15-29 5 Kidney failure <15 (or dialysis) 18 Because ethnic data is not always readily [...] 15-29 5 Kidney failure <15 (or dialysis) 19 Desirable: <150 Borderline High: 150-199 High: 200-499 Very High: >500 20 Desirable: <200 Borderline High: 200-239 High: >239 21 Low: <40 Desirable: 40-60 High: >60 22 Desirable: <100 Near Optimal: 100-129 Borderline High: 130-159 High: 160-189 Very High: >189 23 SEE RESULT BELOW Name: SIM CHUN : [address]: Patricia Fontana MD Acct: [id number] Unit: [id number] AGE: 58 Location: ENDO Re10/21/18 SEX: M Status: DEP REF SPEC: [id number] AYLA: 10/21/18-[address]: Patricia Glover MD REQ: [id number] RECD: 10/21/18124 STATUS: DEJA AGARWAL DR: Yasmine Stevenson SUMMER NANNY _ ORDERED: LEVEL 4 FINAL DIAGNOSIS Gastroesophageal [...] 1244 END OF REPORT DEPARTMENT OF PATHOLOGY, [address] [place] [address] Tommie Grajeda M.D. Director [facility] # [id number] 24 Because ethnic data is not always readily [...] 15-29 5 Kidney failure <15 (or dialysis) 25 SEE RESULT BELOW Name: SIM CHUN : [address]: Manolo Camara MD Acct: [id number] Unit: [id number] AGE: 58 Location: [place] [address] Re07/01/18 SEX: M Status: ADM IN SPEC: [id number] AYLA: 06/30/18 DR: Nan Flaherty MD REQ: [id number] RECD: 06/30/18 STATUS: COMP ANY DR: Jigna Cuello MD _ SOURCE: URINE SPDESC: ORDERED: Urine Culture Procedure Result Reported Site Urine Culture Final 07/02/18827 ML No Growth (<1,000 CFU/mL) * ML - Main Lab . END OF REPORT DEPARTMENT OF PATHOLOGY, [address] [place] [address] Tommie Grajeda M.D. Director [facility] # [id number] 26 Normal smear. Reviewed by Jennifer Diaz MD 27 Therapeutic concentration: <50 ug/mL Toxic concentration: >120 ug/mL 28 Because ethnic data is not always readily [...] 15-29 5 Kidney failure <15 (or dialysis) 29 Presumptive Positive Presumptive positive results are unconfirmed. 30 The urine specimen was tested at the listed cutoffs: Drug class test level (ng/mL) Amphetamines 500 Barbiturates 200 Benzodiazepine metabolites 200 Cocaine metabolites 150 Cannabinoids 50 Opiates 300 Pcp 25 Specimen was received without chain of custody. Results should be used for medical purposes only. Procedures Date Code Description Status 12/03/2018 [id number] Diabetic Retinal Eye Exam Completed 09/03/2018 [address]9768 ECHO Transthoracic, Real-Time 2D With Doppler And Completed Color Flow 09/03/2018 81973 ECHO Transthoracic, Real-Time 2D With Doppler And Completed Color Flow 08/18/2018 [id number] Diabetic Foot Exam Completed 08/05/2018 [id number] Diabetic Retinal Eye Exam Completed 08/04/2018 99435 Stress Test Completed 08/04/2018 63312 Myocardial Perfusion Imaging Tomographic (Spect) Completed Multiple Studies 07/27/2018 59667 EKG Tracing & Interpretation Completed 02/13/2014 97615 Treadmill Interp/Report Only Completed 02/13/2014 05248 Stress Test Supervsn W/Out I/R Completed 02/11/2014 47450 EKG, Interpretation Only Completed 02/10/2014 32993 EKG, Interpretation Only Completed 10/12/2013 80412 EKG Tracing & Interpretation Completed 09/10/2013 16816 Stress Test Supervsn W/Out I/R Completed 09/10/2013 72274 Treadmill Interp/Report Only Completed 09/09/2013 74406 Stress Test Supervsn W/Out I/R Completed 09/09/2013 47649 Treadmill Interp/Report Only Completed 09/06/2013 30915 EKG, Interpretation Only Completed 08/21/2013 91635 EKG, Interpretation Only Completed 03/28/2013 48729 Polysomnography Sleep Staging 4+ Parameters W/Cpap Completed 11/04/2012 12229 Treadmill Interp/Report Only Completed 11/04/2012 32347 Stress Test Supervsn W/Out I/R Completed 02/22/2000 [id number] Diabetic Retinal Eye Exam Completed Encounters Type Date Location Provider Dx Diagnosis Office Visit 02/15/2019 [facility] Raymon Palmer, F10.230 Alcohol dependence 9:31a Assoc,jose PA with withdrawal, Hospitalists uncomplicated I25.10 [facility] heart disease of [facility] coronary artery w/o ang pctrs I10 Essential (primary) hypertension E11.9 Type 2 diabetes mellitus without complications Office Visit 02/14/2019 [facility] F10.230 Alcohol dependence 9:31a Assoc,MIRYAM Anthony with withdrawal, Hospitalists uncomplicated E87.8 Oth disorders of electrolyte and fluid balance, NEC G62.9 Polyneuropathy, unspecified I25.10 Ath[address]cl heart disease of [facility] coronary artery w/o ang pctrs I10 Essential (primary) hypertension F32.9 Major depressive disorder, single episode, unspecified E11.9 Type 2 diabetes mellitus without complications K22.70 Guzman's esophagus without dysplasia Office Visit 02/13/2019 [facility] F10.230 Alcohol dependence 9:30a Assoc,jose Palmer PA with withdrawal, Hospitalists uncomplicated E87.8 Oth disorders of electrolyte and fluid balance, NEC G62.9 Polyneuropathy, unspecified I25.10 Athscl heart disease of [facility] coronary artery w/o ang pctrs I10 Essential (primary) hypertension E11.9 Type 2 diabetes mellitus without complications R07.9 Chest pain, unspecified Office Visit 02/12/2019 [facility] F10.230 Alcohol dependence 9:30a Assoc,jose Ervin NP with withdrawal, Hospitalists uncomplicated E87.8 Oth disorders of electrolyte and fluid balance, NEC I25.10 Athscl heart disease of [facility] coronary artery w/o ang pctrs I10 Essential (primary) hypertension F32.9 Major depressive disorder, single episode, unspecified E11.40 Type 2 diabetes mellitus with diabetic neuropathy, unsp K22.70 Guzman's esophagus without dysplasia F17.200 Nicotine dependence, unspecified, uncomplicated Office Visit 02/11/2019 [facility] F10.230 Alcohol dependence 9:30a Assoc,jose Fishman NP with withdrawal, Hospitalists uncomplicated N17.9 Acute kidney failure, unspecified I25.10 Athscl heart disease of [facility] coronary artery w/o ang pctrs I10 Essential (primary) hypertension Office Visit 12/01/2018 10:00a [facility] Internal Audrey Car, R21 Rash and other Medicine - MD nonspecific skin Ccmob eruption Office Visit 11/23/2018 1:40p [facility] Internal Jigna Cuello, E11.65 Type 2 diabetes Medicine - mellitus with Suite R hyperglycemia I10 Essential (primary) hypertension K22.70 Guzman's esophagus without dysplasia I25.10 Athscl heart disease of [facility] coronary artery w/o ang pctrs E78.5 Hyperlipidemia, unspecified Office Visit 11/05/2018 1:30p [facility] Anju Phelps, I25.10 Athscl heart Of [facility] M.D. disease of [facility] coronary artery w/o ang pctrs I10 Essential (primary) hypertension E78.5 Hyperlipidemia, unspecified G47.33 Obstructive sleep apnea (adult) (pediatric) R74.0 Nonspec elev of levels of transamns & lactic acid dehydrgnse E11.8 Type 2 diabetes mellitus with unspecified complications Office Visit 10/30/2018 [facility] Internal Jigna Cuello, F10.11 Alcohol abuse, 4:20p Medicine-Miko WINTER in remission I10 Essential (primary) hypertension Z02.71 Encounter for disability determination E11.8 Type 2 diabetes mellitus with unspecified complications Office Visit 08/27/2018 [facility] Yasmine E78.5 Hyperlipidemia, 2:30p Cardiology Angélica Stevenson NP unspecified [facility] I10 Essential (primary) hypertension I25.10 Athscl heart disease of [facility] coronary artery w/o ang pctrs G47.33 Obstructive sleep apnea (adult) (pediatric) F10.11 Alcohol abuse, in remission Office Visit 08/11/2018 1:30p [facility] Yasmine Stevenson, I10 Essential (primary) Of [facility] SUMMER NANNY hypertension I25.10 Athscl heart disease of [facility] coronary artery w/o ang pctrs E78.5 Hyperlipidemia, unspecified G47.33 Obstructive sleep apnea (adult) (pediatric) F10.11 Alcohol abuse, in remission Office Visit 07/27/2018 2:10p [facility] Anju Rasmussener, I25.10 Athscl heart Of [facility] M.D. disease of [facility] coronary artery w/o ang pctrs E11.8 Type 2 diabetes mellitus with unspecified complications I10 Essential (primary) hypertension F17.200 Nicotine dependence, unspecified, uncomplicated G47.33 Obstructive sleep apnea (adult) (pediatric) E78.5 Hyperlipidemia, unspecified R06.02 Shortness of breath Office Visit 07/23/2018 10:30a [facility] Internal Jigna Cuello MD I10 Essential (primary) Medicine - Suite hypertension R F10.21 Alcohol dependence, in remission F33.1 Major depressive disorder, recurrent, moderate E11.9 Type 2 diabetes mellitus without complications G47.33 Obstructive sleep apnea (adult) (pediatric) Office Visit 06/24/2018 9:30a [facility] Internal Jigna Cuello, F10.27 Alcohol dependence Medicine - MD with alcohol-induced Suite R persisting dementia I10 Essential (primary) hypertension E11.65 Type 2 diabetes mellitus with hyperglycemia Z13.1 Encounter for screening for diabetes mellitus F17.210 Nicotine dependence, cigarettes, uncomplicated I25.9 Chronic ischemic heart disease, unspecified F33.1 Major depressive disorder, recurrent, moderate E11.9 Type 2 diabetes mellitus without complications Office Visit 06/16/2018 10:17a [facility] Belia Aguero, F10.239 Alcohol Assoc,pc N.P. 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 Hospitalist Other Hospitalists 291.9 Alcohol-Induced Mental Disorders Unspec Office Visit 02/13/2014 8:52a [facility] Genet 786.50 Pain Chest Assoc,jose Jimenez M.D. Unspec Hospitalists 291.81 Alcoholic Withdrawal 305.1 Tobacco Use Disorder 300.9 Nonpsychotic Disorders NOS Office Visit 02/12/2014 8:51a [facility] Genet 786.50 Pain Chest Assoc,jose Jimenez M.D. Unspec Hospitalists 291.81 Alcoholic Withdrawal 305.1 Tobacco Use Disorder 300.9 Nonpsychotic Disorders NOS Office Visit 02/11/2014 8:51a [facility] Genet 786.50 Pain Chest Assocjose M.D. Unspec Hospitalists 291.81 Alcoholic Withdrawal 305.1 Tobacco Use Disorder 300.9 Nonpsychotic Disorders NOS Office Visit 02/10/2014 8:49a [facility] Genet 786.50 Pain Chest Assoc,jose Jimenez M.D. Unspec Hospitalists 291.81 Alcoholic Withdrawal 305.1 Tobacco Use Disorder 300.9 Nonpsychotic Disorders NOS Office Visit 12/25/2013 2:59p [facility],pc Bhaskar Bobby 276.2 Acidosis Hospitalists Elizabeth Doty 303.90 Alcohol Dependence Other & Unspec Office Visit 12/24/2013 2:58p [facility] Genet 303.90 Alcohol Assoc,jose Jimenez M.D. Dependence Other Hospitalists & Unspec 276.2 Acidosis Office Visit 10/12/2013 1:15p [facility] Raciel Sujey, 401.1 Hypertension Of Oscar Johnson, FACC, Benign FSCAI 414.9 Ischemic Heart Disease Chronic Unspec 786.50 Pain Chest Unspec 272.4 Hyperlipidemia Other Unspec Office Visit 09/09/2013 [facility] Caren Hohn, 291.81 Alcoholic 9:27a Assoc,jose Johnson Withdrawal Hospitalists 311 Depressive Disorder Not Elsewhere Spec 786.50 Pain Chest Unspec v62.84 Suicidal Ideation Office Visit 09/08/2013 9:27a [facility] Caren Ferguson, 786.50 Pain Chest Assocjose M.D. Unspec Hospitalists 291.81 Alcoholic Withdrawal v62.84 Suicidal Ideation 311 Depressive Disorder Not Elsewhere Spec Office Visit 09/07/2013 9:27a [facility] Caren Ferguson, 786.50 Pain Chest Assocjose M.D. Unspec Hospitalists 291.81 Alcoholic Withdrawal 311 Depressive Disorder Not Elsewhere Spec v62.84 Suicidal Ideation Office Visit 09/06/2013 9:26a [facility] Brandy 786.05 Shortness Of Assoc,jose Robles D.O. Breath Hospitalists 291.81 Alcoholic Withdrawal 311 Depressive Disorder Not Elsewhere Spec v62.84 Suicidal Ideation Office Visit 08/23/2013 9:11a [facility] 786.50 Pain Chest Assoc,jose Jimenez M.D. Unspec Hospitalists 291.3 Alcohol-Induced Psychotic Disorder W/Hallucination 305.00 Alcohol Abuse Unspec Office Visit 08/22/2013 9:10a [facility] Genet 786.50 Pain Chest Assocjose M.D. Unspec Hospitalists 291.3 Alcohol-Induced Psychotic Disorder W/Hallucination 305.00 Alcohol Abuse Unspec Office Visit 08/21/2013 9:10a [facility] Genet 786.50 Pain Chest Assocjose M.D. Unspec Hospitalists 291.3 Alcohol-Induced Psychotic Disorder W/Hallucination 305.00 Alcohol Abuse Unspec Office Visit 08/20/2013 9:10a [facility] 786.50 Pain Chest Assoc,jose Jimenez M.D. Unspec Hospitalists Office Visit 04/02/2013 10:00a [facility] Bhaskar Koch 331.83 Mild Cognitive Services Of [place] Elizabeth Grant Impairment So Stated 437.9 Cerebrovascular Disease Or Lesion Unspec Office Visit 03/17/2013 1:00p [facility] Bhaskar SRachelle 780.93 Memory Loss Services Of [facility] Elizabeth Grant 437.9 Cerebrovascular Disease Or Lesion Unspec 303.93 Alcohol Dependence In Remission Other & Unspec Office 01/22/2013 [facility] Rey 327.23 Obstructive Sleep Visit 4:05p [facility] Center Elizabeth [place] Apnea Adult & Pediatric Office 11/05/2012 [facility] Axel 414.01 Coronary Visit 1:11p jose Spann II, M.D. Atherosclerosis Hospitalists [place] 300.9 Nonpsychotic Disorders NOS Office Visit 11/03/2012 [facility] 414.01 Coronary 1:11p jose Spann M.D. Atherosclerosis Hospitalists [place] 300.9 Nonpsychotic Disorders NOS Plan of Treatment Future Appointment(s):06/02/2019 2:20 pm - Jigna Cuello MD at [facility]12/2019 11:00 am - Glenn Sutton M.D. at [facility]03/02/2019 - Jigna Cuello MDE11.9 Type 2 diabetes mellitus without complicationsComments:your A1c is 7.2% , continue current managementFollow up:3 months, 20 minI10 Essential (primary) dnoqmxvwktsyU39.200 Nicotine dependence, unspecified, pybkrdeneusbtS18.2 Plantar fascial fibromatosisNew Therapy:Physical XuttrotP26.21 Alcohol dependence, in remission Goals 03/02/2019 - Jigna Cuello MDE11.9 Type 2 diabetes mellitus without complicationsGoal Hemoglobin A1c is less than 7.0% in ages 18-74 Goal Hemoglobin A1c is between 7.0% and 8.0% in age over 75 Goal Blood pressure is less than 130/85. Cholesterol should be lowered by a high or moderate-dose statin.
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
[2019-03-17 19:17] LABS: ABS Basophils 0.1 10^3/ul (0-0.2); ABS Eosinophils 0.3 10^3/ul (0-0.6); ABS Lymphocytes 3.1 10^3/ul (1.0-4.8); ABS Monocytes 0.6 10^3/ul (0-0.8); ABS Neutrophils 4.1 10^3/ul (1.5-7.7); Eosinophil % 3.1 %; Hematocrit 41 % (42-52); Hemoglobin 13.8 g/dL (14.0-18.0); Lymphocyte % 37.9 %; Mean Corpuscular HGB Conc 34 g/dL (31-36); Mean Corpuscular Hemoglobin 33 pg (27-31); Mean Corpuscular Volume 97 fL (80-94); Mean Platelet Volume 7.3 fL (7.4-10.4); Nucleated Red Blood Cells % 0.1; Platelet Count 199 10^3/uL (150-450); Red Blood Count 4.15 10^6 /uL (4.18-5.48); Red Cell Distribution Width 14 % (10-15); White Blood Count 8.3 10^3/uL (3.5-10.8)
[2019-03-17 19:35] LABS: ALT 60 U/L (7-52); AST 58 U/L (13-39); Albumin 4.2 g/dL (3.2-5.2); Albumin/Globulin Ratio 1.5 (1-3); Alkaline Phosphatase 64 U/L (34-104); Anion Gap 16 mmol/L (2-11); BUN/Creatinine Ratio 17.5 (8-20); Blood Urea Nitrogen 17 mg/dL (6-24); CO2 Carbon Dioxide 21 mmol/L (22-32); Calcium 8.5 mg/dL (8.6-10.3); Chloride 100 mmol/L (101-111); EGFR African American 96.2 (>60); EGFR Non-African American 79.5 (>60); Globulin 2.8 g/dL (2-4); Glucose 195 mg/dL (70-100); Potassium 3.2 mmol/L (3.5-5.0); Sodium 137 mmol/L (135-145)
[2019-03-17] MEDS ORDERED: Potassium Chlor TAB* 20 MEQ TAB.ER PO ONE (19:39)
[2019-03-17 20:06] LABS: Acetaminophen < 15 mcg/mL; Alcohol 212 mg/dL (<10); Salicylate < 2.50 mg/dL (<30)
[2019-03-17 20:08] LABS: Urine Benzodiazepine Screen Presumptive Positive (None Detect); Urine Opiates Screen None Detected (None Detect)
[2019-03-17 20:09] LABS: Urine Appearance Cloudy; Urine Bacteria Absent (Absent); Urine Bilirubin Negative (Negative); Urine Blood Negative (Negative); Urine Color Amber; Urine Glucose Negative (Negative); Urine Ketones Trace (Negative); Urine Nitrite Negative (Negative); Urine Protein 1+(30 mg/dL) (Negative); Urine Red Blood Cell 2+(6-10/hpf) (Absent); Urine Specific Gravity 1.021 (1.010-1.030); Urine Squamous Epithelial Cell Present (Absent); Urine Urobilinogen Negative (Negative); Urine White Blood Cell 3+(>20/hpf) (Absent)
[2019-03-17] MEDS ORDERED: Thiamine IV* 100 MG, Folic Acid IV* 1 MG, Multiple Vitamin IV ADULT* 10 ML in NS 0.9% 1... IV ONE (20:17)
[2019-03-17 20:21] LABS: TSH (Thyroid Stimulating Horm) 5.71 mcIU/mL (0.34-5.60)
[2019-03-17] MEDS ORDERED: NS 0.9% 1000 ML** 1,000 ML ONE (21:04)
[2019-03-18] MEDS ORDERED: LORazepam TAB(*) 1 MG PO ONE (00:20)
--- NOTE | 2019-03-18 02:35 | ED ---
Progress - Progress Note Progress Note: This patient was signed out from Dr. Mayo to Dr. Dang at 22:00 03/17/19 pending MHE. Per mental health dye expert, Dr. Lam has decided that the patient will be admitted. Dx: Depression, SI - Consult/PCP Time Called: 00:14 Course/Dx - Course Course Of Treatment: This patient was signed out from Dr. Mayo to Dr. Dang at 22:00 03/17/19 pending MHE. Per mental health dye expert, Dr. Lam has decided that the patient will be admitted. Dx: Depression, SI - Diagnoses Provider Diagnoses: Depression, Suicidal ideation - Provider Notifications Discussed Care Of Patient With: Abel Lam Time Discussed With Above Provider: 04:33 Instructed by Provider To: Other - Per mental health dye expert, Dr. Lam has decided that the patient will be admitted. Dx: Depression, SI Discharge - Sign-Out/Discharge Documenting (check all that apply): Patient Departure - admit, Receiving Sign- Out Receiving patient FROM: Louis Mayo - pending MHE Patient Received Moderate/Deep Sedation with Procedure: No - Discharge Plan Condition: Fair Disposition: [facility]ATRIC [facility]AC[facility] - Billing Disposition and Condition Condition: FAIR Disposition: Psychiatric Facility [facility] - Attestation Statements Document Initiated by Scribe: Yes Documenting Scribe: Raciel Lino Provider For Whom Rod is Documenting (Include Credential): Edgardo Dang MD Scribleatha Attestation: Raciel Maldonado, scribed for Edgardo Dang MD on 03/18/19 at 0607. Scribe Documentation Reviewed: Yes Provider Attestation: The documentation as recorded by the Raciel galan accurately reflects the service I personally performed and the decisions made by me, Edgardo Dang MD Status of Scribe Document: Viewed
[2019-03-18] MEDS ORDERED: chlordiazePOXIDE CAP* 25 MG PO ONE (04:31)
[2019-03-18] MEDS ORDERED: Al Hydrox/Mg Hydrox/Simet LIQ* 30 ML UDC PO PRN (06:12)
[2019-03-18] MEDS ORDERED: Lorazepam PYXIS KEY PRN (06:13)
[2019-03-18] MEDS: LORazepam PO 0-6 for WAM protocol PO SCH ×4 (06:34→22:41)
[2019-03-18] MEDS ORDERED: LORazepam IM 0-6 mg for WAM protocol IM SCH (07:00)
[2019-03-18] MEDS: Multivitamins/Minerals TAB PO SCH (08:24)
--- NOTE | 2019-03-18 18:55 | HP ---
HISTORY AND PHYSICAL: DATE OF ADMISSION: 03/18/19 IDENTIFYING DATA: Chong is a 58-year-old single, unemployed, male with extensive history of alcohol use disorder and multiple prior psychiatric hospitalizations, who was brought into the emergency room by ambulance from [facility] after he called 911 with the complaints of suicidal ideation and multiple plans. CHIEF COMPLAINT: "I am so anxious because of my living situation and not having a commitment from my landlord to renew my contract that I want to end my life." HISTORY OF PRESENT ILLNESS: This 58-year-old male with lengthy history of alcohol use disorder, depression, anxiety, PTSD, and at times violent behavior towards others, was brought to the emergency room by ambulance after he initiated a call complaining of having suicidal thoughts and multiple plans. Of note, I hear that Chong's biological dad and his stepson both committed suicide, so he was picked up by ambulance and brought to emergency department and was later admitted to the BSU for his safety and stabilization of acute crisis. Chong states that his roommate, who might be a drug dealer, said bad stuff about him to the landlord who now does not want to renew his lease for the apartment, which made him really anxious and depressed. His hospitalist nocturnist physician has been trying and told him that she cannot find anything at least now. He continues to be very anxious and tremulous, whether it is because of anxiety or alcohol withdrawal related tremors. As usual, with this uncertainty of his apartment, Chong escalated his drinking and has been drinking couple of bottles of vodka on daily basis. He describes his mood as anxious and depressed and gave up on his hope. He believes that everybody around him will be better off when he is . However, at one point, he states that his daughter and his brother love him and he really wants to make it through this crisis if somebody can help him with the apartment lease. During his last admission on BSU on , he had almost the identical presentation. He falls apart in the context of psychosocial stressors and financial situation. Chong today denies any homicidal ideation or auditory/visual hallucinations. PAST PSYCHIATRIC HISTORY: Remarkable for multiple prior inpatient psychiatric hospitalizations, mostly due to same situations like psychosocial stressors as well as financial conditions. He was hospitalized in different places including [facility]. SUBSTANCE ABUSE HISTORY: His main problem is alcohol use disorder. He reports that he drinks at least a couple of pints of vodka on daily basis. He has been drinking since he was 16. Had gone through multiple short-term and long-term rehabs with brief sobriety periods. He also has history of using acid, marijuana, and so on. He has a history of using cocaine for about a year, but has not been using anymore. He also had used heroin intermittently and last use was about 5 years ago. There is a report that after using IV heroin 4 years ago, his heart stopped. PAST MEDICAL HISTORY: Remarkable for: 1. Coronary artery disease, status post stent in 1999. 2. Nephrolithiasis. 3. Hypertension. 4. Hypercholesterolemia. 5. Diabetes mellitus, type 2. ALLERGIES: SULFA DRUGS. FAMILY PSYCHIATRIC HISTORY: Remarkable for his father committed suicide by shooting himself with a shotgun as well as his stepson hung himself. His mother was depressed and had frequent suicidal thoughts. PERSONAL AND SOCIAL HISTORY: Chong lives in an apartment with a roommate. He has a girlfriend who was his drinking arielle; she checked herself into a rehab program. He has a grown-up daughter who is doing well with regards to her job and financial stability. Chong reports that his brother also was doing very well in his trade. They all live close by and are very supportive. 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 His main psychosocial stressor at this time is uncertainty of lease renewal for his apartment. PHYSICAL EXAMINATION GENERAL: Chong is a healthy looking, mildly obese male who is appropriately dressed and neatly groomed. VITAL SIGNS: Within normal limits. HEENT: Head: Atraumatic, normocephalic. Face: Within normal limits. Eyes: PERRLA. EOMI x2. Ears: Grossly intact hearing. Ear canals clean with intact eardrums. Mouth: Oropharynx within normal limits. NECK: Supple with midline trachea. No lymphadenopathy or JVD. No thyromegaly. CHEST: Well developed, symmetric. Clear air entry bilaterally. No wheezing or crackles. CVS: Regular rate and rhythm. S1 and S2 only. No murmurs or gallops. ABDOMEN: Soft, nontender. No masses. Bowel sounds positive in all quadrants. EXTREMITIES: No problem with joint movements. Pulses positive in all extremities. NEUROLOGICAL: Alert and oriented to time, place, and person. Cranial nerves II through XII are grossly intact. No sensory deficits appreciated. MENTAL STATUS EXAMINATION: Chong is alert and oriented to time, place, and person. He appears to be of his stated age 58, makes good eye contact, nervous and tremulous on presentation, but otherwise pleasant and cooperative. His speech is normal in all spheres. There is no evidence of any thought or perceptual disturbances. Describes his mood as depressed. Observed affect appears to be dysphoric and nervous. There is gross tremulousness of mainly upper extremities and orofacial region. Denies any current suicidal or homicidal ideations. Also denies any auditory or visual hallucinations. His intelligence appears to be average as evidenced by his vocabulary and fund of knowledge. Memory function is intact in all spheres. Insight and judgement appears to be fair to good except for drinking alcohol. SUMMARY: This 58-year-old male with known history of alcohol use disorder and previous diagnosis of depression, PTSD, and anxiety disorder as well as alcohol use disorder, was admitted to BSU in the context of verbalizing suicidal ideation and multiple plans. This is one of his multiple prior psychiatric hospitalizations and the last one on his unit was in January 2018. DIAGNOSTIC IMPRESSION: MENTAL HEALTH DIAGNOSES: 1. Alcohol use disorder, unspecified. 2. Depressive disorder, rule out major depressive disorder. PHYSICAL HEALTH DIAGNOSES: 1. Coronary artery disease, status post stents. 2. Nephrolithiasis. 3. Hypertension. 4. Hypercholesterolemia. 5. Diabetes mellitus, type 2. TREATMENT RECOMMENDATIONS: Chong will remain hospitalized on behavioral science unit for his safety and stabilization of acute mental health crisis. He will be on [facility] protocol. His code status will remain full. Supportive milieu, individual and group therapy will be initiated and his psychotropic medication management will be deferred to his assigned psychiatrist on the unit. [id number]/[facility] #: [id number] ELVIA
[2019-03-19] MEDS: LORazepam PO 0-6 for WAM protocol PO SCH ×5 (01:52→23:02)
[2019-03-19 07:47] LABS: HDL Cholesterol 38.6 mg/dL
[2019-03-19] MEDS: Multivitamins/Minerals TAB PO SCH ×2 (08:33→11:24)
[2019-03-19] MEDS: Metoprolol Succinate XL TAB* 25 MG PO SCH (10:25)
[2019-03-19] MEDS: Pantoprazole TAB * 40 MG TAB PO SCH (10:26)
[2019-03-19] MEDS: Folic Acid TAB* 1 MG PO SCH (10:26)
[2019-03-19] MEDS: Aspirin EC TAB* 81 MG TAB.EC PO SCH (10:26)
[2019-03-19] MEDS: BuPROPion XL* 150 MG TAB.XL PO SCH (10:26)
[2019-03-19] MEDS: Gabapentin CAP(*) 300 MG PO SCH ×2 (10:27→21:14)
[2019-03-19] MEDS: amLODIPine TAB* 5 MG PO SCH (10:28)
[2019-03-19] MEDS: Venlafaxine EXT RELEASE CAP* 75 MG PO SCH (10:30)
[2019-03-19] MEDS: Nicotine* 2MG (FRUIT FLAVOR) GUM PO PRN ×2 (10:30→19:18)
[2019-03-19] MEDS: Thiamine TAB* 100 MG TAB PO SCH (11:24)
--- NOTE | 2019-03-19 12:03 | PN ---
Subjective - Subjective Date of Service: 03/19/19 Service Type: 75450 Hosp care 15 min low complexity Subjective: Chong is in fair spirits this morning after receiving his resumed regimen of medications that were somehow withheld yesterday. He denies SI today and says that he just got overwhelmed by his housing situation. "Truth be told I don't feel like I really need to be in here. I should be out there working on getting myself a new apartment." He says things were going well with is medicines and outpatient treatment at [facility] prior to being told by his landlord that they would not be renewing his lease. Mr. Dawn has a history of homelessness and is quite afraid of returning to this lifestyle. He admits to excessive drinking since finding out about his impending eviction but is not interested in substance abuse treatment. "I just need to get a safe place to stay and then I think I'll start volunteering for the [employer] program through [employer] [facility]." Objective - General Observations Appearance: Well Groomed Appears Stated Age: No Stature: WNL Posture: WNL Eye Contact: Average Behavior/Activity: Accelerated - Interaction Observations Attitude Towards Examiner: Cooperative Stated Mood: Euthymic Affect: Full Speech Pattern/Tone: Clear, Appropriate, Normal Volume Thought Process: Coherent Perception: WNL Thought Content: WNL Hallucination Type: None Delusion Type: None - Cognitive Function Level of Consciousness: Awake, Alert Cognition: WNL Estimated Intelligence: Normal Insight: WNL Judgment Within Normal Limits: Yes - Medication Compliance Cooperative with Inpatient Medication Regimen: Yes - Group Participation Participates in Group Activities: Yes Assessment - Assessment Merits Inpatient Hospitalization: Consolidate Improvements, Pending Safe DC Plan Inpatient DSM-V Dx: F10.94 Clinical Impression: 58 y.o. , white male pending possible homelessness, with a history of alcohol and drug dependence, affective problems and suicide attempts admitted voluntarily due to relapse on alcohol, housing tenuousness and SI. BSU: Problem List - Patient Problems (1) Alcohol-induced mood disorder Current Visit: No Status: Acute Priority: Medium Onset Date: 04/08/14 Code(s): F10.94 - ALCOHOL USE, UNSPECIFIED WITH ALCOHOL-INDUCED MOOD DISORDER SNOMED Code(s): 59229567 Plan - Plan Treatment Plan: Name: CHONG DAWN Birthdate: 1960 [id number] We have resumed the patient's outpatient regimen, including venlafaxine XR 75mg PO qam, bupropion XL 150mg PO qam and hydroxyzine 50mg PO qhs. He is also on the [facility] protocol for alcohol withdrawal. Continue inpatient treatment with focus on housing support and resolution of current crisis. Continued Medication Management: Continue Outpt Medication Medications: Current Medications Acetaminophen (Tylenol Tab*) 650 mg PO Q4H PRN PRN Reason: PAIN; OR TEMP >101 Al Hydrox/Mg Hydrox/Simethicone (Maalox Plus*) 30 ml PO Q4H PRN PRN Reason: INDIGESTION Amlodipine Besylate (Norvasc Tab*) 5 mg PO DAILY [facility] Last Admin: 03/19/19 10:28 Dose: 5 mg Aspirin (Aspirin Ec Tab*) 81 mg PO DAILY [facility] Last Admin: 03/19/19 10:26 Dose: 81 mg Atorvastatin Calcium (Lipitor*) 20 mg PO BEDTIME [facility] Bupropion HCl (Wellbutrin Xl *) 150 mg PO DAILY [facility] Last Admin: 03/19/19 10:26 Dose: 150 mg Folic Acid (Folvite Tab*) 1 mg PO DAILY [facility] Last Admin: 03/19/19 10:26 Dose: 1 mg Gabapentin (Neurontin Cap(*)) 300 mg PO BID [facility] Last Admin: 03/19/19 10:27 Dose: 300 mg Hydroxyzine HCl (Atarax Tab*) 50 mg PO BEDTIME [facility] Lorazepam (Ativan Tab(*)) 0 - 6 mg PO .PER [facility] PARAMETERS BARB; Protocol Last Admin: 03/19/19 10:18 Dose: 2 mg Lorazepam (Ativan Inj*) 0 - 6 mg IM .PER [facility] PROTOCOL [facility]; Protocol Metformin HCl (Glucophage*) 500 mg PO BID WITH MEALS [facility] Metoprolol Succinate (Toprol Xl Tab*) 37.5 mg PO DAILY [facility] Last Admin: 03/19/19 10:25 Dose: 37.5 mg Miscellaneous (Ativan Pyxis Segovia) 1 ea N/A .PYXIS SEGOVIA PRN PRN Reason: PER PROTOCOL Multivitamins/Minerals (Theragran/Minerals Tab*) 1 tab PO DAILY [facility] Last Admin: 03/19/19 11:24 Dose: Not Given Nicotine Polacrilex (Nicotine Gum*) 2 mg PO Q2H PRN PRN Reason: CRAVING Last Admin: 03/19/19 10:30 Dose: 2 mg Pantoprazole Sodium (Protonix Tab*) 40 mg PO DAILY [facility] Last Admin: 03/19/19 10:26 Dose: 40 mg Thiamine HCl (Vitamin B-1 Tab*) 100 mg PO DAILY [facility] Last Admin: 03/19/19 11:24 Dose: Not Given Venlafaxine HCl (Effexor Xr Cap*) 75 mg PO DAILY [facility] Last Admin: 03/19/19 10:30 Dose: 75 mg - Discharge Plan Discharge Plan: Inpatient Hospitalization
[2019-03-19] MEDS: metFORMIN* 500 MG TAB PO SCH (16:55)
[2019-03-19] MEDS: Atorvastatin* 20 MG TAB PO SCH (21:14)
[2019-03-19] MEDS: hydrOXYzine HCL TAB* 50 MG PO SCH (21:14)
[2019-03-20] MEDS: LORazepam PO 0-6 for WAM protocol PO SCH ×3 (02:10→18:02)
[2019-03-20] MEDS: Thiamine TAB* 100 MG TAB PO SCH (09:05)
[2019-03-20] MEDS: BuPROPion XL* 150 MG TAB.XL PO SCH (09:05)
[2019-03-20] MEDS: Folic Acid TAB* 1 MG PO SCH (09:05)
[2019-03-20] MEDS: Gabapentin CAP(*) 300 MG PO SCH ×2 (09:06→22:17)
[2019-03-20] MEDS: metFORMIN* 500 MG TAB PO SCH ×2 (09:06→17:48)
[2019-03-20] MEDS: Aspirin EC TAB* 81 MG TAB.EC PO SCH (09:06)
[2019-03-20] MEDS: amLODIPine TAB* 5 MG PO SCH (09:06)
[2019-03-20] MEDS: Pantoprazole TAB * 40 MG TAB PO SCH (09:07)
[2019-03-20] MEDS: Venlafaxine EXT RELEASE CAP* 75 MG PO SCH (09:07)
[2019-03-20] MEDS: Multivitamins/Minerals TAB PO SCH (09:07)
[2019-03-20] MEDS: Metoprolol Succinate XL TAB* 25 MG PO SCH (09:07)
[2019-03-20] MEDS: Nicotine* 2MG (FRUIT FLAVOR) GUM PO PRN ×2 (09:11→18:22)
[2019-03-20] MEDS: chlorproMAZINE TAB* 50 MG PO PRN (12:50)
--- NOTE | 2019-03-20 17:58 | PN ---
Subjective - Subjective Date of Service: 03/20/19 Service Type: [id number] Hosp care 25 min moderate complexity Subjective: Chong had a difficult day today due to interpersonal conflict with another male patient and went after other patient. Thorazine 50mg po was given and that appeared to have helped. During the assessment he appeared somnolent but in good behavioral control. Denied SI or HI. Objective - General Observations Appearance: Well Groomed Appears Stated Age: Yes Stature: WNL Posture: WNL Eye Contact: Avoidant Behavior/Activity: Slowed - Interaction Observations Attitude Towards Examiner: Cooperative, Anxious Stated Mood: Dysphoric Affect: Blunted Speech Pattern/Tone: Delayed Thought Process: Coherent, Goal Directed Perception: WNL Thought Content: WNL Hallucination Type: Denies Delusion Type: Denies - Cognitive Function Orientation: A&O x 4 Level of Consciousness: Awake, Alert, Appropriate Cognition: WNL Estimated Intelligence: Normal Insight: Mostly Blames Others for Problems Judgment Within Normal Limits: No Ability to Make Reasonable Decisions: Moderately Impaired - Medication Compliance Cooperative with Inpatient Medication Regimen: Yes - Group Participation Participates in Group Activities: No Assessment - Assessment Merits Inpatient Hospitalization: For Immediate Safety, For Stabilization, For Ongoing Evaluation, Pending Safe DC Plan Inpatient DSM-V Dx: F10.94 Clinical Impression: 58 y.o. , white male pending possible homelessness, with a history of alcohol and drug dependence, affective problems and suicide attempts admitted voluntarily due to relapse on alcohol, housing tenuousness and SI. Plan - Plan Treatment Plan: Name: CHONG DAWN Birthdate: 1960 [id number] We have resumed the patient's outpatient regimen, including venlafaxine XR 75mg PO qam, bupropion XL 150mg PO qam and hydroxyzine 50mg PO qhs. He is also on the [facility] protocol for alcohol withdrawal. Continue inpatient treatment with focus on housing support and resolution of current crisis. Continued Medication Management: Continue Outpt Medication Medications: Current Medications Acetaminophen (Tylenol Tab*) 650 mg PO Q4H PRN PRN Reason: PAIN; OR TEMP >101 Al Hydrox/Mg Hydrox/Simethicone (Maalox Plus*) 30 ml PO Q4H PRN PRN Reason: INDIGESTION Amlodipine Besylate (Norvasc Tab*) 5 mg PO DAILY [facility] Last Admin: 03/20/19 09:06 Dose: 5 mg Aspirin (Aspirin Ec Tab*) 81 mg PO DAILY [facility] Last Admin: 03/20/19 09:06 Dose: 81 mg Atorvastatin Calcium (Lipitor*) 20 mg PO BEDTIME [facility] Last Admin: 03/19/19 21:14 Dose: 20 mg Bupropion HCl (Wellbutrin Xl *) 150 mg PO DAILY [facility] Last Admin: 03/20/19 09:05 Dose: 150 mg Chlorpromazine HCl (Thorazine Tab*) 50 mg PO Q6H PRN PRN Reason: AGITATION Last Admin: 03/20/19 12:50 Dose: 50 mg Folic Acid (Folvite Tab*) 1 mg PO DAILY [facility] Last Admin: 03/20/19 09:05 Dose: 1 mg Gabapentin (Neurontin Cap(*)) 300 mg PO BID [facility] Last Admin: 03/20/19 09:06 Dose: 300 mg Hydroxyzine HCl (Atarax Tab*) 50 mg PO BEDTIME [facility] Last Admin: 03/19/19 21:14 Dose: 50 mg Lorazepam (Ativan Tab(*)) 0 - 6 mg PO .PER [facility] PARAMETERS [facility]; Protocol Last Admin: 03/20/19 04:58 Dose: 2 mg Lorazepam (Ativan Inj*) 0 - 6 mg IM .PER [facility] PROTOCOL [facility]; Protocol Metformin HCl (Glucophage*) 500 mg PO BID WITH MEALS [facility] Last Admin: 03/20/19 09:06 Dose: 500 mg Metoprolol Succinate (Toprol Xl Tab*) 37.5 mg PO DAILY [facility] Last Admin: 03/20/19 09:07 Dose: 37.5 mg Miscellaneous (Ativan Pyxis Segovia) 1 ea N/A .PYXIS SEGOVIA PRN PRN Reason: PER PROTOCOL Multivitamins/Minerals (Theragran/Minerals Tab*) 1 tab PO DAILY [facility] Last Admin: 03/20/19 09:07 Dose: 1 tab Nicotine Polacrilex (Nicotine Gum*) 2 mg PO Q2H PRN PRN Reason: CRAVING Last Admin: 03/20/19 09:11 Dose: 2 mg Pantoprazole Sodium (Protonix Tab*) 40 mg PO DAILY [facility] Last Admin: 03/20/19 09:07 Dose: 40 mg Thiamine HCl (Vitamin B-1 Tab*) 100 mg PO DAILY [facility] Last Admin: 03/20/19 09:05 Dose: 100 mg Venlafaxine HCl (Effexor Xr Cap*) 75 mg PO DAILY [facility] Last Admin: 03/20/19 09:07 Dose: 75 mg - Discharge Plan Discharge Plan: Drug/Alcohol Rehab
[2019-03-20] MEDS: hydrOXYzine HCL TAB* 50 MG PO SCH (22:18)
[2019-03-20] MEDS: Atorvastatin* 20 MG TAB PO SCH (22:18)
[2019-03-21] MEDS: Nicotine* 2MG (FRUIT FLAVOR) GUM PO PRN ×2 (07:40→16:04)
[2019-03-21] MEDS: BuPROPion XL* 150 MG TAB.XL PO SCH (07:41)
[2019-03-21] MEDS: Folic Acid TAB* 1 MG PO SCH (07:41)
[2019-03-21] MEDS: Gabapentin CAP(*) 300 MG PO SCH ×2 (07:41→22:00)
[2019-03-21] MEDS: Venlafaxine EXT RELEASE CAP* 75 MG PO SCH (07:41)
[2019-03-21] MEDS: Multivitamins/Minerals TAB PO SCH (07:41)
[2019-03-21] MEDS: Aspirin EC TAB* 81 MG TAB.EC PO SCH (07:41)
[2019-03-21] MEDS: Pantoprazole TAB * 40 MG TAB PO SCH (07:41)
[2019-03-21] MEDS: Thiamine TAB* 100 MG TAB PO SCH (07:41)
[2019-03-21] MEDS: amLODIPine TAB* 5 MG PO SCH (07:41)
[2019-03-21] MEDS: metFORMIN* 500 MG TAB PO SCH ×2 (07:41→17:07)
[2019-03-21] MEDS: Metoprolol Succinate XL TAB* 25 MG PO SCH (07:42)
[2019-03-21] MEDS: Acetaminophen TAB* 325 MG PO PRN (16:02)
[2019-03-21] MEDS: chlorproMAZINE TAB* 50 MG PO PRN (16:03)
[2019-03-21] MEDS: Atorvastatin* 20 MG TAB PO SCH (22:00)
[2019-03-21] MEDS: hydrOXYzine HCL TAB* 50 MG PO SCH (22:00)
[2019-03-22] MEDS: Acetaminophen TAB* 325 MG PO PRN (04:40)
[2019-03-22] MEDS: Thiamine TAB* 100 MG TAB PO SCH (07:53)
[2019-03-22] MEDS: Pantoprazole TAB * 40 MG TAB PO SCH (07:53)
[2019-03-22] MEDS: metFORMIN* 500 MG TAB PO SCH (07:53)
[2019-03-22] MEDS: Gabapentin CAP(*) 300 MG PO SCH (07:53)
[2019-03-22] MEDS: Multivitamins/Minerals TAB PO SCH (07:53)
[2019-03-22] MEDS: Metoprolol Succinate XL TAB* 25 MG PO SCH (07:54)
[2019-03-22] MEDS: Folic Acid TAB* 1 MG PO SCH (07:54)
[2019-03-22] MEDS: Aspirin EC TAB* 81 MG TAB.EC PO SCH (07:54)
[2019-03-22] MEDS: Venlafaxine EXT RELEASE CAP* 75 MG PO SCH (07:54)
[2019-03-22] MEDS: BuPROPion XL* 150 MG TAB.XL PO SCH (07:54)
[2019-03-22] MEDS: amLODIPine TAB* 5 MG PO SCH (07:54)
[2019-03-22] MEDS: Nicotine* 2MG (FRUIT FLAVOR) GUM PO PRN (07:56)
[2019-03-22 08:05] VITALS: BP 145/82
--- NOTE | 2019-03-22 11:32 | PN ---
BSU: Group Therapy Note - Service Type Service Type: [id number] Group Psychotherapy - Cognitive Behavioral Group Therapy ( CBT):Patient was attentive and participatory in CBT programming this morning, and remained in good behavioral control. Patient expressed positive insights regarding relevant treatment interventions and goals.
--- NOTE | 2019-03-22 16:21 | DS ---
PSYCHIATRIC DISCHARGE SUMMARY: DATE OF ADMISSION: 03/18/19 DATE OF DISCHARGE: 03/22/19 DISCHARGE DIAGNOSES: [place] I: Alcohol-induced depressive disorder. Alcohol use disorder. [place] II: D eferred. CONDITION AT THE TIME OF DISCHARGE: Improved. The patient has been denying suicidal ideation throug hout his hospital course. He is very much future oriented, wanted to return to the community so that he can work on getting a new apartment for himself. 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 The patient has followups in place at [facility] and we see no barriers to him receiving definitive care in [facility] although the patient's chronic risk factors for suicide remains elevated given his ongoin g abuse of alcohol and his history of suicidality in the past. We feel that the acute crisis has bee n resolved and that he has what needs to seek stable housing in the community with the assistance of his rehabilitation caseworker at [facility]. Chong has done well here and is appropriate ly requesting discharge. MENTAL STATUS EXAM: At the time of discharge, the patient is a middle-aged white male, who appears t o be slightly older than his stated age. He is wearing spectacles and a short-sleeved polo shirt. H e is clean, well groomed, makes good eye contact. He is somewhat tremulous, but speech has a normal rate, tone, and volume. Mood is euthymic with full affect. Thought process is linear and goal direc dilshad. Thought content is significant for his desire to be discharged from the hospital. Cognitively, he is awake and alert. The patient denies suicidal or homicidal ideations. He denies auditory or v isual hallucinations. Insight and judgment are fair given his willingness to follow up with [facility] treatment. Cognitively, he is awake and alert with what would appear to be an avera ge intellect. DISCHARGE INSTRUCTIONS TO THE PATIENT: Are as follows: Part A. Medications: The patent takes: 1. Norvasc 5 mg daily. 2. Aspirin 81 mg daily. 3. Lipitor 20 mg at night. 4. Wellbutrin 150 mg daily. 5. Folic acid 1 mg daily. 6. Gabapentin 300 mg twice daily. 7. Metformin 500 mg b.i.d. 8. Metoprolol 37.5 mg daily. 9. Multivitamin 1 tablet daily. 10. Protonix 40 mg daily. 11. Thiamine 100 mg daily. 12. Effexor XR 75 mg daily. Part B: Diet: He takes a diabetic diet. Part C: Activities as tolerated. The patient is a smoker; however, he is declining continued use of nicotine gum, stating his preference to continue smoking. He is granted the [facility] Smoker's Quitline at [phone] in the event that he changes his mind. There are no laboratory or diagnost ic studies pending at the time of discharge. Part D: Followup care: The patient will be seen at [facility] tomorrow, , 03/23/19. He will see psychiatrist, Dr. George Mary at 9:20 a.m. and his case consultant, Betty at 11 a.m. Thereafter, he has a followup appointment with his therapist at [facility] named Anant on 04/05/19 at 9:45 a.m. Part E: Substance abuse followup. The patient was offered substance abuse referrals, but refused th em. Part F: Disposition. The patient is returning to his apartment in the community. HOSPITAL COURSE: Part A: Reason for admission: The patient is a 58-year-old single, unemployed whit e male with an extensive history of alcohol use disorder and multiple previous psychiatric hospitaliz ations, who was brought into the emergency room by ambulance after calling 911 with complaints of jeison cidal ideations with plan to overdose on medications. The patient is suffering from a significant ps ychosocial stressor, in that his landlord has told him he would be evicted at the end of his lease ef fective 04/08/19. Chong's biological father and his stepson both of suicide and he was picked u p by ambulance and brought to the emergency room after having thoughts of ending his own life. He st ates that his roommate said bad things about him to the landlord, who decided not to renew the lease. The patient has been homeless in the past and has sensitivities for this reason. He is not sure wh ere he will reside once he is forced to leave his current apartment. He did endorse daily drinking u p to a bottle of vodka daily. He described his mood as anxious and depressed and that he was feeling hopeless about his situation. He could not contract for safety in the emergency room and was deemed appropriate for a voluntary admission. Part B: Psychiatric treatment rendered: [facility], where he was placed on q.15-minute checks for his own safety. He was started on the [facility] protocol for alcohol detoxification and received several doses of lorazepam due to tremulousness and other sig ns of alcohol withdrawal. His outpatient medication regimen was continued including all psychiatric medications such as bupropion, venlafaxine, hydroxyzine, gabapentin. The patient was offered substanc e abuse treatment both on an inpatient and outpatient setting but he refused both of these stating th at he wanted to devote his time in the outpatient setting to getting a new apartment. While here, he could be incredibly irritable and medication seeking. In particular, he was often agitated but not receiving scheduled Ativan, which he insists that his outpatient providers have prescribed to him. A t one point, he got into a verbal argument with a male peer and he tended to be irritable at times. Nonetheless, he steadfastly denied suicidal ideations and felt that discharge to the outpatient [facility] was the most appropriate plan. We did confirm appointments with his psychiatrist and psychotherap ist and his case consultant all at [facility]. The patient has a girlfriend as well as a brother, and a sister in the area, who are capable of providing housing assistance in the short term if he cannot find his own apartment by the end of the month. At this time, the patient is requesting discharge appropriately and we see no barriers to him receiving definitive care in the tpatie setting. [id number]/[facility] #: [id number]
== END 2019-03-22 14:50 | disposition home or self-care (01) | DRG 897 ==
LOC: ED 18:02 → BSU 03-18 04:49
PROVIDERS: ADMIT Psychiatry & Neurology Psychiatry; ATTEND Psychiatry & Neurology Psychiatry
DX: F10.14 Alcohol abuse with alcohol-induced mood disorder (principal); R45.851 Suicidal ideations; F33.9 Major depressive disorder, recurrent, unspecified; Y90.7 Blood alcohol level of 200-239 mg/100 ml; F17.210 Nicotine dependence, cigarettes, uncomplicated; F41.9 Anxiety disorder, unspecified; F43.10 Post-traumatic stress disorder, unspecified; F14.21 Cocaine dependence, in remission; F12.21 Cannabis dependence, in remission; F11.21 Opioid dependence, in remission; I25.10 Atherosclerotic heart disease of native coronary artery without angina pectoris; N20.0 Calculus of kidney; I10 Essential (primary) hypertension; E78.00 Pure hypercholesterolemia, unspecified; E66.9 Obesity, unspecified; E11.9 Type 2 diabetes mellitus without complications; Z95.5 Presence of coronary angioplasty implant and graft; Z88.2 Allergy status to sulfonamides; Z81.8 Family history of other mental and behavioral disorders; Z68.30 Body mass index [BMI] 30.0-30.9, adult; Z79.84 Long term (current) use of oral hypoglycemic drugs; Z79.899 Other long term (current) drug therapy
CPT/HCPCS: 36415; 80053; 80061; 80307; 80320; 80329; 81003; 81015; 83036; 83721; 84443; 85025; 87086; 99222; 99231; 99232; 99238; 99285; A9270-GY; G0480; J3411

== ENCOUNTER 2019-04-24 16:30 | Emergency (ER) | payer MEDICARE, MEDICAID ==
[2019-04-24 17:03] LABS: ABS Eosinophils 0.1 10^3/ul (0-0.6); ABS Lymphocytes 2.3 10^3/ul (1.0-4.8); ABS Monocytes 0.5 10^3/ul (0-0.8); Eosinophil % 2.3 %; Hematocrit 43 % (42-52); Hemoglobin 14.7 g/dL (14.0-18.0); Lymphocyte % 38.9 %; Mean Corpuscular HGB Conc 34 g/dL (31-36); Mean Corpuscular Hemoglobin 32 pg (27-31); Mean Corpuscular Volume 95 fL (80-94); Nucleated Red Blood Cells % 0.2; Platelet Count 216 10^3/uL (150-450); Red Blood Count 4.55 10^6 /uL (4.18-5.48); Red Cell Distribution Width 15 % (10-15); White Blood Count 5.9 10^3/uL (3.5-10.8)
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
[2019-04-24 17:08] LABS: INR 1.33 (0.82-1.09)
[2019-04-24] MEDS ORDERED: Acetaminophen TAB* 325 MG PO ONE (17:08)
[2019-04-24 17:19] LABS: Albumin 4.1 g/dL (3.2-5.2); Albumin/Globulin Ratio 1.4 (1-3); BUN/Creatinine Ratio 15.2 (8-20); Calcium 7.4 mg/dL (8.6-10.3); EGFR African American 87.8 (>60); EGFR Non-African American 72.5 (>60); Total Bilirubin 0.8 mg/dL (0.2-1.0); Total Protein 7.1 g/dL (6.4-8.9)
[2019-04-24] MEDS ORDERED: Haloperidol INJ IV/IM* 5 MG/ML AMP IM ONE (17:48)
[2019-04-24 18:02] LABS: Potassium 4.1 mmol/L (3.5-5.0)
[2019-04-24] MEDS ORDERED: NS 0.9% 1000 ML** 1,000 ML IV ONE (21:22)
--- NOTE | 2019-04-25 06:23 | ED ---
Progress - Progress Note Progress Note: Receiving sign-out from Dr. Dumont at 2200 pending sobriety. At 0622, the patient is now sober. A plan for discharge was discussed with the patient and he was agreeable with this plan. Re-Evaluation - Re-Evaluation First Eval Re-Evaluation Time: 17:58 Comment: Brain and C-spine CT are negative. Patient is ambulating and has taken his C-collar off himself. Patient was given haldol for agitation. Second Eval Re-Evaluation Time: 18:28 Comment: Patient now reports L shoulder pain, so I will XR the shoulder. Third Eval Re-Evaluation Time: 18:40 Comment: Patient reports "pain all over." Patient offered Tylenol, to which he responded "that's pretty lame." Patient given a sandwich. Fourth Eval Comment: Patient resting. Will give IV fluids for tachycardia, patient signed out pending sobriety and reevaluation Course/Dx - Course Course Of Treatment: Receiving sign-out from Dr. Dumont at 2200 pending sobriety. At 0622, the patient is now sober. A plan for discharge was discussed with the patient and he was agreeable with this plan. - Diagnoses Provider Diagnoses: Alcohol intoxication Discharge - Sign-Out/Discharge Documenting (check all that apply): Patient Departure - Discharge Patient Received Moderate/Deep Sedation with Procedure: No - Discharge Plan Condition: Stable Disposition: HOME Patient Education Materials: Alcohol Intoxication (ED) Referrals: Jigna Cuello MD [Primary Care Provider] - Additional Instructions: You were seen in the emergency department for alcohol intoxication and ground- level fall. Please do not drink and drive. If any studies were not completed at the time of discharge you will be called with the relevant results. Please follow up with your primary care doctor in next 2-3 days and return to emergency department for worsening or concerning symptoms. - Attestation Statements Document Initiated by Scribe: Yes Documenting Scribe: Rey Jaimes Provider For Whom Rod is Documenting (Include Credential): Nan Flaherty MD Scribe Attestation: Rey Maldonado, scribed for Nan Flaherty MD on 04/25/19 at 0623. Status of Scribe Document: Ready
--- OUTSIDE RECORDS SUMMARY | 2019-04-25 06:33 | XMS REPORT | Continuity of Care Document ---
:1960 External Reference #:[id number] Author Name Zaira Alberto Care Team Providers Name Role Phone Jigna Cuello M.D. Primary Care Physician Unavailable Payers Date Identification Numbers Payment Provider Subscriber Policy Number: [id number] Medicare Sim Chun PayID: [id number] [address] [place] [address] Policy Number: [id number] Medicaid Sim Chun Group Name: 1 [address] PayID: [id number] [place] [address] Problems Active Problems Provider Date Benign essential hypertension Raciel Rm M.D., [facility], [facility] Onset: 2013 Chronic ischemic heart disease Raciel Rm M.D., [facility], [facility] Onset: 2013 Chest pain Raciel Rm M.D., [facility], [facility] Onset: 10/12/2013 Hyperlipidemia Raciel Rm M.D., [facility] Onset: 10/12/2013 Multi vessel coronary artery disease Anju Phelps M.D. Onset: 07/27/2018 Major depressive disorder, single Glenn Sutton M.D. Onset: 04/12/2019 episode, unspecified Skin sensation disturbance Glenn Sutton M.D. Onset: 04/12/2019 Abnormal involuntary movement Glenn Sutton M.D. Onset: 04/12/2019 History of cerebrovascular accident Glenn Sutton M.D. Onset: 04/12/2019 without residual deficits Polyneuropathy Glenn Sutton M.D. 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 Hand Dominance Right-handed ETOH Use Consumes 2 pints of liquor per day ETOH Use Has consumed alcohol Sober as of 07/23/18 in the past Recreational Drug Use Denies Drug Use Tobacco Use Start: Unknown Light tobacco smoker (10 or fewer cigarettes/day) Recreational Drug Use Former Drug User Smoking Status Reviewed: 04/12/19 Light tobacco smoker (10 or fewer cigarettes/day) Exercise Type/Frequency Exercises regularly Exercise Type/Frequency Walks 5 times a week 5 mile a day and gym Allergies, Adverse Reactions, Alerts Active Allergies Reaction Severity Comments Date Donepezil nightmares, hallucinations Severe 10/12/2013 Acamprosate Calcium Contact dermatitis 07/23/2018 Inactive Allergies NKDA 01/03/2011 Medications Active Medications SIG Qnty Indications Ordering Date Provider Nicotine Polacrilex Week 1-6 take 1 72units Jigna Cuello MD 03/03/2019 4mg lozenge every Lozenges 1-2 hours as needed, not to exceed 5 lozenges in 6 hours Thiamine HCL 1 by mouth every 30tabs Jigna Cuello MD 03/02/2019 100mg day Tablets Bupropion 2 tabs by mouth 60tabs Jigna Cuello MD 03/02/2019 Hydrochloride ER (XL) every morning 150mg Tablets ER 24HR Norvasc 1 by mouth every 90tabs I25.10 Yasmine Stevenson, 08/11/2018 5mg Tablets day CLIENT ACCOUNT ASSISTANT Lorazepam 1 by mouth twice 45tabs Jigna Cuello MD 07/28/2018 1mg Tablets a day as [...] day Metformin HCL take 1 tablet by 180tabs Jigna Cuello MD 500mg mouth two times Tablets daily with a meal Atorvastatin Calcium take 1 tablet at 90tabs Jigna Cuello MD 20mg bedtime Tablets Aspirin Low Dose 1 by mouth every 90units Jigna Cuello MD 81mg day Chewtabs Metoprolol Succinate 1.5 tablets by 135tabs Yasmine Stevenson, ER mouth every day CLIENT ACCOUNT ASSISTANT 25mg Tablets ER 24HR Nitrostat one sl q5min up QS Unknown 0.4mg Tablets to 3 doses prn Sub History Medications Norvasc 1 by mouth every 90tabs I25.10 Yasmine 08/11/2018 - 2.5mg Tablets day HOANG Stevenson 08/11/2018 Acamprosate Calcium 2 tab by mouth 180tabs F10.27 Jigna Cuello 06/24/2018 - 333mg three times a day 07/23/2018 Tablets Ramiprraffy 1 cap by mouth 30caps I10 Jigna Cuello, 06/24/2018 - 10mg Capsules every day 08/11/2018 Omeprazole 1 by mouth every 90caps Dylan Iniguez 06/24/2018 - 20mg Capsules day [place], 07/26/2018 DR Johnson,[facility] Altace 1 tab by mouth 90caps Raciel Rm, 10/12/2013 - 5mg Capsules every day Elizabeth, [facility], 06/24/2018 [facility] Donepezil HCL 1 every day for 1 60tabs Bhaskar Koch 04/02/2013 - 5mg Tablets month then 2 qd Elizabeth Grant 10/12/2013 Diazepam 1 tab 30 minutes 2tabs Bhaskar Koch 03/30/2013 - 5mg Tablets before mri, bobby Grant M.D. 04/02/2013 take a second tablet if needed Pantoprazole Sodium 1 po qd 90tabs [place], - 40mg MD Geraldo 06/24/2018 Tablets Guanfacine HCL 1 po qd 30tabs Ch[place], - 1mg MD Geraldo 07/09/2018 Tablets Aspirin [...] - 20mg Capsules Mouth Every Day 06/24/2018 Propranolol HCL Take 2 Tablets By Unknown [...] by Unknown - mouth q4hr as 03/01/2019 [phone]/5ML needed indigestion Suspension Nicotrol 1 cartridges every 168units Jigna Cuello, - 10mg Inhaler 2 hours as needed 03/02/2019 Lorazepam po q 8 hrs prn Unknown - 1mg Tablets 07/23/2018 Nicotine Transdermal use 1 patch every Unknown - System 24 hours 03/02/2019 21mg/24HR Patches 24HR Thiamine HCL 1 by mouth every 30tabs Jigna Ceullo, - 100mg day 03/02/2019 Tablets Bupropion HCL [...] Citalopram 1 po qd PT Not 30tabs [place], - Hydrobromide Clint Chow MD 08/04/2018 20mg Tablets Crestor 1 po qd [...] 07/09/2018 meds Lisinopril 1 po qd 30tabs Chawla, - 10mg Tablets MD Geraldo 10/12/2013 Medications Administered in Office Medication SIG Qnty Indications Ordering Provider Date Technetium TC 99M Jeb Gerardo, DO [facility] 08/04/2018 Tetrofosmin, Per Unit Dose Up To 40 Millicuries Injection Vital Signs Date Vital Result Comment 04/12/2019 10:59am Height 67 inches 5'7" Weight 200.00 lb Heart Rate 88 /min BP Systolic 138 mmHg BP Diastolic 92 mmHg BMI (Body Mass Index) 31.3 kg/m2 03/02/2019 4:05pm Height 67 inches 5'7" Weight [...] Facility Test Result H/L Range Note CBC Auto Diff 03/17/2019 [facility] White Blood 8.3 10^3/uL N 3.5-10.[address] Count [place], [place] [id number] [phone] Red Blood Count 4.15 10^6/uL Low 4.18-5.48 Hemoglobin 13.8 g/dL Low 14.0-18.0 Hematocrit 41 % Low 42-52 Mean Corpuscular Volume 97 fL High 80-94 Mean Corpuscular Hemoglobin 33 pg High 27-31 Mean Corpuscular HGB Conc 34 g/dL N 31-36 Red Cell Distribution Width 14 % N 10-15 Platelet Count 199 10^3/uL N 150-450 Mean Platelet Volume 7.3 fL Low 7.4-10.4 Abs Neutrophils 4.1 10^3/uL N 1.5-7.7 Abs Lymphocytes 3.1 10^3/uL N 1.0-4.8 Abs Monocytes 0.6 10^3/uL N 0-0.8 Abs Eosinophils 0.3 10^3/uL N 0-0.6 Abs Basophils 0.1 10^3/uL N 0-0.2 Abs Nucleated RBC 0.0 10^3/uL Granulocyte % 50.0 % Lymphocyte % 37.9 % Monocyte % 7.7 % Eosinophil % 3.1 % Basophil % 1.3 % Nucleated Red Blood Cells % 0.1 Urine Drug 03/17/2019 [facility] Urine None Detected None Detect SCR ED & [address] A[place] [address] Screen [phone] Urine Barbiturates Screen None Detected None Detect Urine Benzodiazepine Screen Presumptive Posi <SEE NOTE> Abnormal None Detect 1 Urine Cannabinoids Screen Presumptive Posi <SEE NOTE> Abnormal None Detect 2 Urine Cocaine Screen None Detected None Detect Urine Opiates Screen None Detected None Detect Urine Phencyclidine Screen None Detected None Detect 3 Urinalysis Profile 03/17/2019 [facility] Urine Color Gloria [address] [place] [address] [phone] Urine Appearance Cloudy Urine Specific [place] 1.021 N 1.010-1.030 Urine pH 5.0 N 5-9 Urine Urobilinogen Negative Negative Urine Ketones Trace Abnormal Negative Urine Protein 1+(30 mg/dL) Abnormal Negative Urine Leukocytes 2+ Abnormal Negative Urine Blood Negative Negative Urine Nitrite Negative Negative Urine Bilirubin Negative Negative Urine Glucose Negative Negative Urine White Blood Cell 3+(>20/hpf) Abnormal Absent Urine Red Blood Cell 2+(6-10/hpf) Abnormal Absent Urine Bacteria Absent Absent Urine Squamous Epithelial Cell Present Abnormal Absent Urine Hyaline Casts Present Abnormal Absent Comp Metabolic Panel 03/17/2019 [facility] Sodium 137 mmol/L N [address] [place] [address] [phone] Potassium 3.2 mmol/L Low 3.5-5.0 Chloride 100 mmol/L Low 101-111 Co2 Carbon Dioxide 21 mmol/L Low 22-32 Anion Gap 16 mmol/L High 2-11 Glucose 195 mg/dL High 70-100 Blood Urea Nitrogen 17 mg/dL N 6-24 Creatinine 0.97 mg/dL N 0.67-1.17 BUN/Creatinine Ratio 17.5 N 8-20 Calcium 8.5 mg/dL Low 8.6-10.3 Total Protein 7.0 g/dL N 6.4-8.9 Albumin 4.2 g/dL N 3.2-5.2 Globulin 2.8 g/dL N 2-4 Albumin/Globulin Ratio 1.5 N 1-3 Total Bilirubin 0.40 mg/dL N 0.2-1.0 Alkaline Phosphatase 64 U/L N 34-104 Alt 60 U/L High 7-52 Ast 58 U/L High 13-39 Egfr Non- 79.5 >60 Egfr 96.2 >60 4 Laboratory test 03/17/2019 [facility] Acetaminophen < 15 g/mL [address] [place] [address] [phone] Alcohol 212 mg/dL High <10 Salicylate < 2.50 mg/dL <30 TSH (Thyroid Stim Horm) 5.71 mcIU/mL High 0.34-5.60 Urine Culture 03/17/2019 [facility] Urine Culture SEE RESULT [address] [place] [address] [phone] Laboratory test 03/02/2019 [facility] Hemoglobin A1c 7.2 High 5-7 finding Urine Culture 02/11/2019 [facility] Urine Culture SEE RESULT [address] [place] [address] [phone] Urine Drug SCR 02/11/2019 [facility] Urine None None ED & Pain Clinic [address] [place] [address] Screen [phone] Urine Barbiturates Screen None Detected None Detect Urine Benzodiazepine Screen Presumptive Posi <SEE NOTE> Abnormal None Detect 8 Urine Cannabinoids Screen Presumptive Posi <SEE NOTE> Abnormal None Detect 9 Urine Cocaine Screen None Detected None Detect Urine Opiates Screen None Detected None Detect Urine Phencyclidine Screen None Detected None Detect 10 Urinalysis Profile 02/11/2019 [facility] Urine Color Gloria [address] [place] [address] [phone] Urine Appearance Cloudy Urine Specific [place] 1.021 N 1.010-1.030 Urine pH 5.0 N [...] Absent Urine Hyaline Casts Present Abnormal Absent Laboratory test 02/11/2019 [facility] Acetaminophen < 15 g/mL [address] [place] [address] [phone] Alcohol < 10 mg/dL N <10 Salicylate < 2.50 mg/dL <30 TSH (Thyroid Stim Horm) 2.47 mcIU/mL N 0.34-5.60 Comp Metabolic Panel 02/11/2019 [facility] Sodium 132 mmol/L Low 135-[address] [place] [address] [phone] Chloride 95 mmol/L Low 101-111 Co2 Carbon [...] Egfr Non- 52.1 >60 Egfr 63.0 >60 12 Alt 80 U/L High 7-52 Potassium TNP mmol/L 3.5-5.0 13 Anion Gap 17 mmol/L High 2-11 Ast TNP U/L 13-39 14 CBC Auto Diff 02/11/2019 [facility] White Blood 5.7 10^3/uL N 3.5-10.[address] [place] [address] [phone] Red Blood Count 4.18 10^6/uL N 4.18-5.48 [...] % Nucleated Red Blood Cells % 0.1 Laboratory test 02/11/2019 [facility] Potassium TNP mmol/L 3.5-5.0 [address] [place] [address] [phone] Ast Redraw TNP U/L 13-39 16 Laboratory test 02/09/2019 [facility] Troponin-I 0.01 ng/mL < 0.[address] (TnI) [place] [address] [phone] CBC Auto Diff 02/08/2019 [facility] White Blood 6.5 N 3.5- 10.[address] Count 10^3/[place] [address] [phone] Red Blood Count 4.35 10^6/uL N 4.18-5.48 [...] % Nucleated Red Blood Cells % 0.1 Inr/Protime 02/08/2019 [facility] Inr 1.33 High 0.82-1.[address] [place] [address] [phone] Laboratory test 02/08/2019 [facility] Partial 34.0 N 26.0- 36.[address] [place] [address] Time PTT [phone] Comp Metabolic 02/08/2019 [facility] Sodium 138 mmol/L N 135- [address] [place] [address] [phone] Chloride 99 mmol/L Low 101-111 Co2 Carbon [...] Egfr Non- 90.1 >60 Egfr 109.1 >60 19 Potassium TNP mmol/L 3.5-5.0 20 Anion Gap 14 mmol/L High 2-11 Ast TNP U/L 13-39 21 Laboratory test 02/08/2019 [facility] Magnesium 1.7 mg/dL Low 1.9-2.[address] [place] [address] [phone] Amylase 59 U/L N 29-103 Lipase 47 U/L N 11.0-82.0 Troponin-I (TnI) 0.01 ng/mL <0.04 22 Alcohol 259 mg/dL High <10 CBC Auto Diff 12/28/2018 [facility] White Blood 6.4 10^3/uL N 3.5-10.[address] [place] [address] [phone] Red Blood Count 4.89 10^6/uL N 4.18-5.48 [...] Cells % 0.1 Comp Metabolic Panel 12/28/2018 [facility] Sodium 141 mmol/L N 135-[address] [place] [address] [phone] Potassium 4.1 mmol/L N 3.5-5.0 Chloride 99 [...] Egfr Non- 90.1 >60 Egfr 109.1 >60 23 Laboratory test 12/28/2018 [facility] Alcohol 392 mg/dL High < [address] [place] [address] [phone] Laboratory test 11/23/2018 [facility] Hemoglobin A1c 7.6 High 5-7 finding Inr/Protime 11/05/2018 [facility] Inr 0.98 N 0.77-1. [address] [place] [address] [phone] Lipid Profile 11/05/2018 [facility] Triglycerides 310 mg/dL 24 (Trig/Chol/HDL) [address] [place] [address] [phone] Cholesterol 170 mg/dL 25 HDL Cholesterol 45.2 mg/dL 26 LDL Cholesterol 63 mg/dL 27 Lipid Panel - 11/05/2018 [facility] Creatine 152 U/L N 10-[address] Kinase(CK) [place] [address] [phone] Comp Metabolic 11/05/2018 [facility] Sodium 138 N 135-[address] mmol/[place] [address] [phone] Potassium 4.6 mmol/L N 3.5-5.0 Chloride 103 [...] Non- 93.9 >60 Egfr 113.6 >60 28 Laboratory test 10/21/2018 [facility] Surgical SEE RESULT [address] [place] [address] [phone] Comp Metabolic 08/26/2018 [facility] Sodium 139 mmol/L N 135- [address] [place] [address] [phone] Potassium 3.9 mmol/L N 3.5-5.0 Chloride 97 [...] Egfr Non- 80.5 >60 Egfr 97.3 >60 30 Urine Culture And 06/30/2018 [facility] Urine Culture SEE RESULT [address] [place] [address] [phone] Laboratory test 06/30/2018 [facility] Pathologist (SEE NOTE) [address] [place] [address] [phone] Manual 06/30/2018 [facility] Neutrophil % 38 % N 38-[address] [place] [address] [phone] Lymphocytes % 50 % High 25-47 Monocytes % 7 % N 0-7 Eosinophils % 1 % N 0-6 Basophil % 4 % High 0-2 Abs Neutrophils 3.0 10^3/uL N 1.5-7.7 Abs Lymphocytes 4.0 10^3/uL N 1.0-4.8 Abs Monocytes 0.6 10^3/uL N 0-0.8 Abs Eosinophils 0.1 10^3/uL N 0-0.6 Abs Basophils 0.3 10^3/uL High 0-0.2 RBC Morphology Normal Normal Technical Review Performed By [id number] CBC Auto Diff 06/30/2018 [facility] White Blood 8.0 10^3/uL N 3.5-10.[address] [place] [address] [phone] Red Blood Count 4.97 10^6/uL N 4.00-5.40 [...] 3.5 10^3/uL N 1.5-7.7 Laboratory test 06/30/2018 [facility] Creatine 105 U/L N 10- [address] Kinase(CK) [place] [address] [phone] Acetaminophen < 15 g/mL 33 Alcohol 314 mg/dL High <10 Salicylate < 2.50 mg/dL <30 TSH (Thyroid Stim Horm) 2.59 mcIU/mL N 0.34-5.60 Comp Metabolic Panel 06/30/2018 [facility] Sodium 140 mmol/L N 135-[address] [place] [address] [phone] Potassium 4.2 mmol/L N 3.5-5.0 Chloride 98 [...] Egfr Non- 93.9 >60 Egfr 113.6 >60 34 Urine Drug 06/30/2018 [facility] Amphetamine Ur None Detected None Detect SCR ED & [address] [place] [address] [phone] Barbiturates Urine Screen None Detected None Detect Benzodiazepine Urine Screen Presumptive Posi <SEE NOTE> Abnormal None Detect 35 Urine Cannabinoids Screen None Detected None Detect Urine Cocaine Screen None Detected None Detect Urine Opiates Screen None Detected None Detect Urine Phencyclidine Screen None Detected None Detect 36 Urinalysis Profile 06/30/2018 [facility] Urine Color Yellow [address] [place] [address] [phone] Urine Appearance Clear Urine Specific [place] 1.018 N 1.010-1.030 Urine pH 5.0 N 5-9 Urine Urobilinogen Negative Negative Urine Ketones Negative Negative Urine Protein Negative Negative Urine Leukocytes Negative Negative Urine Blood 2+ Abnormal Negative Urine Nitrite Negative Negative Urine Bilirubin Negative Negative Urine Glucose Negative Negative Urine White Blood Cell Trace(0-5/hpf) Absent Urine Red Blood Cell 2+(6-10/hpf) Abnormal Absent Urine Bacteria Absent Absent Laboratory test finding 06/24/2018 [facility] Hemoglobin A1c 7.0 5-7 Glucose Fingerstick 243 1 Presumptive Positive Presumptive positive results are unconfirmed. 2 Presumptive Positive Presumptive positive results are unconfirmed. 3 The urine specimen was tested at the listed cutoffs: Drug class test level (ng/mL) Amphetamines 500 Barbiturates 200 Benzodiazepine metabolites 200 Cocaine metabolites 150 Cannabinoids 50 Opiates 300 Pcp 25 Specimen was received without chain of custody. Results should be used for medical purposes only. 4 Because ethnic data is not always readily [...] 15-29 5 Kidney failure <15 (or dialysis) 5 Therapeutic concentration: <50 ug/mL Toxic concentration: >120 ug/mL 6 SEE RESULT BELOW Name: SIM CHUN J : [address]: Abel Lam MD Acct: [id number] Unit: [id number] AGE: 58 Location: [facility] Re03/18/19 SEX: M Status: ADM IN SPEC: [id number] AYLA: 03/17/[address] [facility] DR: Louis Mayo MD REQ: [id number] RECD: 03/17/19 STATUS: COMP REUBENHR DR: Jigna Cuello MD _ SOURCE: URINE SPDESC: ORDERED: Urine Culture Procedure Result Reported Site Urine Culture Final 03/19/19- 0920 ML No growth of clinically significant organisms * ML - Main Lab . END OF REPORT DEPARTMENT OF PATHOLOGY, [address] [place] [address] Tommie Grajeda M.D. Director [facility] # [id number] 7 SEE RESULT BELOW Name: SIM CHUN : [address]: Barbara Rocha DO Acct: [id number] Unit: [id number] AGE: 58 Location: [facility] 411-01 Re02/11/19 SEX: M Status: ADM Mona SPEC: [id number] AYLA: 02/11/[address]: Louis Mayo MD REQ: [id number] RECD: 02/11/19 STATUS: KALLIE AGARWAL DR: Jigna Cuello MD _ SOURCE: URINE SPDESC: ORDERED: Urine Culture Procedure Result Reported Site Urine Culture Final 02/12/19- 1212 ML No Growth (<1,000 CFU/mL) * ML - Main Lab . END OF REPORT DEPARTMENT OF PATHOLOGY, [address] [place] [address] Tommie Grajeda M.D. Director [facility] # [id number] 8 Presumptive Positive Presumptive positive results are unconfirmed. 9 Presumptive Positive Presumptive positive results are unconfirmed. 10 The urine specimen was tested at the listed cutoffs: Drug class test level (ng/mL) Amphetamines 500 Barbiturates 200 Benzodiazepine metabolites 200 Cocaine metabolites 150 Cannabinoids 50 Opiates 300 Pcp 25 Specimen was received without chain of custody. Results should be used for medical purposes only. 11 Therapeutic concentration: <50 ug/mL Toxic concentration: >120 ug/mL 12 Because ethnic data is not always readily [...] 15-29 5 Kidney failure <15 (or dialysis) 13 Specimen Hemolyzed. Result may not be valid. Unable to report test result due to hemolysis. 14 Unable to report test result due to hemolysis. 15 Specimen Hemolyzed. Result may not be valid. Unable to report test result due to hemolysis. 16 Unable to report test result due to hemolysis. 17 Troponin-I testing on Plasma Separator Tubes (PST) has a known false positive rate of 0.20-0.40%. All positive troponins reflex immediately to secondary confirmatory testing. Using the [employer] DxI 800 Access Immunoassay systems, the 99th percentile upper reference limit was demonstrated to be < 0.03 ng/mL. 18 Standard intensity warfarin therapeutic range: 2.0-3.0 High intensity warfarin therapeutic range: 2.5-3.5 19 Because ethnic data is not always readily [...] 15-29 5 Kidney failure <15 (or dialysis) 20 Specimen Hemolyzed. Result may not be valid. Unable to report test result due to hemolysis. 21 Unable to report test result due to hemolysis. 22 Troponin-I testing on Plasma Separator Tubes (PST) has a known false positive rate of 0.20-0.40%. All positive troponins reflex immediately to secondary confirmatory testing. Using the [employer] DxI 800 Access Immunoassay systems, the 99th percentile upper reference limit was demonstrated to be < 0.03 ng/mL. 23 Because ethnic data is not always readily [...] 15-29 5 Kidney failure <15 (or dialysis) 24 Desirable: <150 Borderline High: 150-199 High: 200-499 Very High: >500 25 Desirable: <200 Borderline High: 200-239 High: >239 26 Low: <40 Desirable: 40-60 High: >60 27 Desirable: <100 Near Optimal: 100-129 Borderline High: 130-159 High: 160-189 Very High: >189 28 Because ethnic data is not always [...] 5 Kidney failure <15 (or dialysis) 29 SEE RESULT BELOW Name: SIM CHUN : [address]: Patricia Fontana MD Acct: [id number] Unit: [id number] AGE: 58 Location: [facility] Re10/21/18 SEX: M Status: DEP REF SPEC: [id number] AYLA: 10/21/18-[address]: Patricia Glover MD REQ: [id number] RECD: 10/21/18-1242 STATUS: DEJA AGARWAL DR: Yasmine Stevenson CLIENT ACCOUNT ASSISTANT _ ORDERED: LEVEL 4 FINAL DIAGNOSIS Gastroesophageal [...] 1244 END OF REPORT DEPARTMENT OF PATHOLOGY, [address] [place] [address] Tommie Grajeda M.D. Director [facility] # [id number] 30 Because ethnic data is not always readily [...] 15-29 5 Kidney failure <15 (or dialysis) 31 SEE RESULT BELOW Name: NEREYDASIM Magana : [address]: Manolo Camara MD Acct: [id number] Unit: [id number] AGE: 58 Location: [facility] Re07/01/18 SEX: M Status: ADM IN SPEC: [id number] AYLA: 06/30/[address] [facility] DR: Nan Flaherty MD REQ: [id number] RECD: 06/30/18 STATUS: KALLIE AGARWAL DR: Jigna Cuello MD _ SOURCE: URINE SPDESC: ORDERED: Urine Culture Procedure Result Reported Site Urine Culture Final 07/02/18827 ML No Growth (<1,000 CFU/mL) * ML - Main Lab . END OF REPORT DEPARTMENT OF PATHOLOGY, [address] [place] [address] Tommie Grajeda M.D. Director [facility] # [id number] 32 Normal smear. Reviewed by Jennifer Diaz MD 33 Therapeutic concentration: <50 ug/mL Toxic concentration: >120 ug/mL 34 Because ethnic data is not always readily [...] 15-29 5 Kidney failure <15 (or dialysis) 35 Presumptive Positive Presumptive positive results are unconfirmed. 36 The urine specimen was tested at the listed cutoffs: Drug class test level (ng/mL) Amphetamines 500 Barbiturates 200 Benzodiazepine metabolites 200 Cocaine metabolites 150 Cannabinoids 50 Opiates 300 Pcp 25 Specimen was received without chain of custody. Results should be used for medical purposes only. Procedures Date Code Description Status 12/03/2018 [id number] Diabetic Retinal Eye Exam Completed 09/03/2018 47264 ECHO Transthoracic, Real-Time 2D With Doppler And Completed Color Flow 09/03/2018 12551 ECHO Transthoracic, Real-Time 2D With Doppler And Completed Color Flow 08/18/2018 [id number] Diabetic Foot Exam Completed 08/05/2018 [id number] Diabetic Retinal Eye Exam Completed 08/04/2018 89725 Stress Test Completed 08/04/2018 19023 Myocardial Perfusion Imaging Tomographic (Spect) Completed Multiple Studies 07/27/2018 51233 EKG Tracing & Interpretation Completed 02/13/2014 29779 Treadmill Interp/Report Only Completed 02/13/2014 88309 Stress Test Supervsn W/Out I/R Completed 02/11/2014 36037 EKG, Interpretation Only Completed 02/10/2014 76424 EKG, Interpretation Only Completed 10/12/2013 20729 EKG Tracing & Interpretation Completed 09/10/2013 10501 Stress Test Supervsn W/Out I/R Completed 09/10/2013 10597 Treadmill Interp/Report Only Completed 09/09/2013 47143 Stress Test Supervsn W/Out I/R Completed 09/09/2013 77408 Treadmill Interp/Report Only Completed 09/06/2013 37950 EKG, Interpretation Only Completed 08/21/2013 08542 EKG, Interpretation Only Completed 03/28/2013 50414 Polysomnography Sleep Staging 4+ Parameters W/Cpap Completed 11/04/2012 07441 Treadmill Interp/Report Only Completed 11/04/2012 65399 Stress Test Supervsn W/Out I/R Completed 02/22/2000 [id number] Diabetic Retinal Eye Exam Completed Encounters Type Date Location Provider Dx Diagnosis Office Visit 04/12/2019 [facility] Glenn Sutton, G62.9 Polyneuropathy, 11:00a Services Of [facility] Jonhson unspecified F32.9 Major depressive disorder, single episode, unspecified Z86.73 Prsnl hx of TIA (TIA), and cereb infrc w/o resid deficits R25.1 Tremor, unspecified R20.2 Paresthesia of skin Office Visit 03/02/2019 4:00p [facility] Jigna Cuello, E11.9 Type 2 diabetes Medicine - MD mellitus without Ccmob complications I10 Essential (primary) hypertension F17.200 Nicotine dependence, unspecified, uncomplicated M72.2 Plantar fascial fibromatosis F10.21 Alcohol dependence, in remission Office Visit 02/15/2019 [place] Belia Ennis F10.230 Alcohol dependence 9:31a Assoc,pc MIRYAM Palmer with withdrawal, Hospitalists uncomplicated I25.10 Athscl heart disease of [place] coronary artery w/o ang pctrs I10 Essential (primary) hypertension E11.9 Type 2 diabetes mellitus without complications Office Visit 02/14/2019 [facility] Raymon F10.230 Alcohol dependence 9:31a Assoc,MIRYAM Anthony with withdrawal, Hospitalists uncomplicated E87.8 Oth disorders of electrolyte and fluid balance, NEC G62.9 Polyneuropathy, unspecified I25.10 Athscl heart disease of [place] coronary artery w/o ang pctrs I10 Essential (primary) hypertension F32.9 Major depressive disorder, single episode, unspecified E11.9 Type 2 diabetes mellitus without complications K22.70 Guzman's esophagus without dysplasia Office Visit 02/13/2019 [facility] Raymon F10.230 Alcohol dependence 9:30a Assoc,MIRYAM Anthony with withdrawal, Hospitalists uncomplicated E87.8 Oth disorders of electrolyte and fluid balance, NEC G62.9 Polyneuropathy, unspecified I25.10 Athscl heart disease of [place] coronary artery w/o ang pctrs I10 Essential (primary) hypertension E11.9 Type 2 diabetes mellitus without complications R07.9 Chest pain, unspecified Office Visit 02/12/2019 [facility] F10.230 Alcohol dependence 9:30a Assoc,jose Ervin NP with withdrawal, Hospitalists uncomplicated E87.8 Oth disorders of electrolyte and fluid balance, NEC I25.10 Athscl heart disease of [place] coronary artery w/o ang pctrs I10 Essential (primary) hypertension F32.9 Major depressive disorder, single episode, unspecified E11.40 Type 2 diabetes mellitus with diabetic neuropathy, unsp K22.70 Guzman's esophagus without dysplasia F17.200 Nicotine dependence, unspecified, uncomplicated Office Visit 02/11/2019 [facility] F10.230 Alcohol dependence 9:30a Assoc,jose Fishman NP with withdrawal, Hospitalists uncomplicated N17.9 Acute kidney failure, unspecified I25.10 Athscl heart disease of [place] coronary artery w/o ang pctrs I10 Essential (primary) hypertension Office Visit 12/01/2018 10:00a [facility] Internal Audrey Car, R21 Rash and other Medicine - MD nonspecific skin Ccmob eruption Office Visit 11/23/2018 1:40p [facility] Internal Jigna Cuello, E11.65 Type 2 diabetes Medicine - MD mellitus with Suite R hyperglycemia I10 Essential (primary) hypertension K22.70 Guzman's esophagus without dysplasia I25.10 Athscl heart disease of [place] coronary artery w/o ang pctrs E78.5 Hyperlipidemia, unspecified Office Visit 11/05/2018 1:30p [facility] Anju Phelps, I25.10 Athscl heart Of [facility] M.D. disease of [place] coronary artery w/o ang pctrs I10 Essential (primary) hypertension E78.5 Hyperlipidemia, unspecified G47.33 Obstructive sleep apnea (adult) (pediatric) R74.0 Nonspec elev of levels of transamns & lactic acid dehydrgnse E11.8 Type 2 diabetes mellitus with unspecified complications Office Visit 10/30/2018 [facility]Not[facility] Internal Jigna Cuello, F10.11 Alcohol abuse, 4:20p Temitope-Miko WINTER in remission I10 Essential (primary) hypertension Z02.71 Encounter for disability determination E11.8 Type 2 diabetes mellitus with unspecified complications Office Visit 08/27/2018 [place] Yasmine E78.5 Hyperlipidemia, 2:30p Cardiology Angélica Stevenson NP unspecified [facility] I10 Essential (primary) hypertension I25.10 Athscl heart disease of [place] coronary artery w/o ang pctrs G47.33 Obstructive sleep apnea (adult) (pediatric) F10.11 Alcohol abuse, in remission Office Visit 08/11/2018 1:30p [facility] Yasmine Stevenson, I10 Essential (primary) Of [facility] CLIENT ACCOUNT ASSISTANT hypertension I25.10 Athscl heart disease of [place] coronary artery w/o ang pctrs E78.5 Hyperlipidemia, unspecified G47.33 Obstructive sleep apnea (adult) (pediatric) F10.11 Alcohol abuse, in remission Office Visit 07/27/2018 2:10p [facility] Anju Phelps, I25.10 Athscl heart Of [facility] M.D. disease of [place] coronary artery w/o ang pctrs E11.8 Type 2 diabetes mellitus with unspecified complications I10 Essential (primary) hypertension F17.200 Nicotine dependence, unspecified, uncomplicated G47.33 Obstructive sleep apnea (adult) (pediatric) E78.5 Hyperlipidemia, unspecified R06.02 Shortness of breath Office Visit 07/23/2018 10:30a [facility] Internal Jigna Cuello MD I10 Essential (primary) Medicine - Suite hypertension R F10.21 Alcohol dependence, in remission F33.1 Major depressive disorder, recurrent, moderate E11.9 Type 2 diabetes mellitus without complications G47.33 Obstructive sleep apnea (adult) (pediatric) Office Visit 06/24/2018 9:30a [facility] Internal Jigna Cuello, F10.27 Alcohol dependence Medicine - MD with alcohol-induced Suite R persisting dementia I10 Essential (primary) hypertension E11.65 Type 2 diabetes mellitus with hyperglycemia Z13.1 Encounter for screening for diabetes mellitus F17.210 Nicotine dependence, cigarettes, uncomplicated I25.9 Chronic ischemic heart disease, unspecified F33.1 Major depressive disorder, recurrent, moderate E11.9 Type 2 diabetes mellitus without complications Office Visit 06/16/2018 10:17a [facility] Vanessa Aguero, F10.239 Alcohol Assoc,pc N.P. 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 Unspec Hospitalists 291.81 Alcoholic Withdrawal 305.1 Tobacco Use Disorder 300.9 Nonpsychotic Disorders NOS Office Visit 02/12/2014 8:51a [facility] Genet 786.50 Pain Chest Assoc,jose Jimenez M.D. Unspec Hospitalists 291.81 Alcoholic Withdrawal 305.1 Tobacco Use Disorder 300.9 Nonpsychotic Disorders NOS Office Visit 02/11/2014 8:51a [facility] Genet 786.50 Pain Chest Assoc,jose Jimenez M.D. Unspec Hospitalists 291.81 Alcoholic Withdrawal 305.1 Tobacco Use Disorder 300.9 Nonpsychotic Disorders NOS Office Visit 02/10/2014 8:49a [facility] Genet 786.50 Pain Chest Assoc,jose Jimenez M.D. Unspec Hospitalists 291.81 Alcoholic Withdrawal 305.1 Tobacco Use Disorder 300.9 Nonpsychotic Disorders NOS Office Visit 12/25/2013 2:59p [facility] Assoc,jose Bobby 276.2 Acidosis Hospitalists Elizabeth Doty 303.90 Alcohol Dependence Other & Unspec Office Visit 12/24/2013 2:58p [facility] Genet 303.90 Alcohol Assoc,jose Jimenez M.D. Dependence Other Hospitalists & Unspec 276.2 Acidosis Office Visit 10/12/2013 1:15p [facility] Raciel Rm, 401.1 Hypertension Of Oscar Johnson, FACC, Benign FSCAI 414.9 Ischemic Heart Disease Chronic Unspec 786.50 Pain Chest Unspec 272.4 Hyperlipidemia Other Unspec Office Visit 09/09/2013 [facility] Caren Ferguson, 291.81 Alcoholic 9:27a Assjose mackenzie M.D. Withdrawal Hospitalists 311 Depressive Disorder Not Elsewhere Spec 786.50 Pain Chest Unspec v62.84 Suicidal Ideation Office Visit 09/08/2013 9:27a [facility] Caren Ferguson 786.50 Pain Chest Assocjose M.D. Unspec Hospitalists 291.81 Alcoholic Withdrawal v62.84 Suicidal Ideation 311 Depressive Disorder Not Elsewhere Spec Office Visit 09/07/2013 9:27a [facility] Caren Ferguson 786.50 Pain Chest Assocjose M.D. Unspec Hospitalists 291.81 Alcoholic Withdrawal 311 Depressive Disorder Not Elsewhere Spec v62.84 Suicidal Ideation Office Visit 09/06/2013 9:26a [facility] Brandy 786.05 Shortness Of Assoc,jose Robles D.O. Breath Hospitalists 291.81 Alcoholic Withdrawal 311 Depressive Disorder Not Elsewhere Spec v62.84 Suicidal Ideation Office Visit 08/23/2013 9:11a [facility] Genet 786.50 Pain Chest Assoc,jose Jimenez M.D. Unspec Hospitalists 291.3 Alcohol-Induced Psychotic Disorder W/Hallucination 305.00 Alcohol Abuse Unspec Office Visit 08/22[facility]2013 [facility],jose Jimenez M.D. Unspec Hospitalists 291.3 Alcohol-Induced Psychotic Disorder W/Hallucination 305.00 Alcohol Abuse Unspec Office Visit 08/21/2013 9:10a [facility] Genet 786.50 Pain Chest Assoc,jose Jimenez M.D. Unspec Hospitalists 291.3 Alcohol-Induced Psychotic Disorder W/Hallucination 305.00 Alcohol Abuse Unspec Office Visit 08/20/2013 9:10[facility] 786.[facility] Chest Assocjose M.D. Unspec Hospitalists Office Visit 04/02/2013 10:00a [facility] Bhaskar Koch 331.83 Mild Cognitive Services Of [facility] Grant M.D. Impairment So Stated 437.9 Cerebrovascular Disease Or Lesion Unspec Office Visit 03/17/2013 1:00p [facility] Bhaskar Koch 780.93 Memory Loss Services Of [facility] Grant M.D. 437.9 Cerebrovascular Disease Or [place]ion Unspec 303.93 Alcohol Dependence In Remission Other & Unspec Office 01/22/2013 Franny Le 327.23 Obstructive Sleep Visit 4:05p [facility] [place] [facility] 414.01 Coronary Visit 1:11p Assjose mackenzie II, M.D. Atherosclerosis Hospitalists Pita 300.9 Nonpsychotic Disorders NOS [facility].01 Coronary 1:11p jose Spann M.D. Atherosclerosis Hospitalists Pita 300.9 Nonpsychotic Disorders NOS Plan of Treatment Future Appointment(s):06/04/2019 1:30 pm - Leroy Arriola N.P. at [facility]06/02/2019 2:20 pm - Jigna Cuello MD at [facility] Internal Medicine - Ccmob04/12/2019 - Glenn Sutton M.D.G62.9 Polyneuropathy, unspecifiedFollow up:Follow up in 6 weeks with JoshRecommendations:Request prior from Jole and TxzdzsO88.9 Major depressive disorder, single episode , yxgsstsprhpQ71.73 Personal history of transient ischemic attack (TIA), and cerNew Xrays:MRI Brain W/O, Ordered: 04/12/19R25.1 Tremor, [id number] Paresthesia of skin
[2019-04-25 06:42] VITALS: BP 157/95
== END 2019-04-25 06:53 | disposition home or self-care (01) ==
LOC: ED 16:30
DX: F10.129 Alcohol abuse with intoxication, unspecified (principal); M25.512 Pain in left shoulder; M19.012 Primary osteoarthritis, left shoulder; W10.9XXA Fall (on) (from) unspecified stairs and steps, initial encounter; Y92.9 Unspecified place or not applicable; E11.9 Type 2 diabetes mellitus without complications; I25.2 Old myocardial infarction; I10 Essential (primary) hypertension; J44.9 Chronic obstructive pulmonary disease, unspecified; Z95.5 Presence of coronary angioplasty implant and graft; Z86.74 Personal history of sudden cardiac arrest; Z88.2 Allergy status to sulfonamides; Z88.8 Allergy status to other drugs, medicaments and biological substances; F17.210 Nicotine dependence, cigarettes, uncomplicated
CPT/HCPCS: 36415; 70450; 71045; 72125; 80053; 80320; 85025; 85610; 96360; 96372; 99283; A9270-GY; G0480; J1630

== ENCOUNTER 2019-04-29 02:36 | Emergency (ER) | payer MEDICARE, MEDICAID ==
[2019-04-29 03:45] LABS: ABS Basophils 0.1 10^3/ul (0-0.2); ABS Eosinophils 0.2 10^3/ul (0-0.6); ABS Lymphocytes 3.3 10^3/ul (1.0-4.8); ABS Monocytes 0.3 10^3/ul (0-0.8); ABS Neutrophils 3.7 10^3/ul (1.5-7.7); Eosinophil % 2.6 %; Hematocrit 42 % (42-52); Hemoglobin 15.2 g/dL (14.0-18.0); Lymphocyte % 43.5 %; Mean Corpuscular HGB Conc 36 g/dL (31-36); Mean Corpuscular Hemoglobin 34 pg (27-31); Mean Corpuscular Volume 94 fL (80-94); Mean Platelet Volume 7.5 fL (7.4-10.4); Nucleated Red Blood Cells % 0.2; Platelet Count 208 10^3/uL (150-450); Red Blood Count 4.49 10^6 /uL (4.18-5.48); Red Cell Distribution Width 15 % (10-15); White Blood Count 7.5 10^3/uL (3.5-10.8)
[2019-04-29 04:17] LABS: ALT 217 U/L (7-52); AST 589 U/L (13-39); Albumin 3.6 g/dL (3.2-5.2); Albumin/Globulin Ratio 1.3 (1-3); Alkaline Phosphatase 122 U/L (34-104); Anion Gap 16 mmol/L (2-11); BUN/Creatinine Ratio 11.9 (8-20); Blood Urea Nitrogen 15 mg/dL (6-24); CO2 Carbon Dioxide 19 mmol/L (22-32); Calcium 6.9 mg/dL (8.6-10.3); Chloride 95 mmol/L (101-111); EGFR African American 71.1 (>60); EGFR Non-African American 58.8 (>60); Globulin 2.7 g/dL (2-4); Glucose 217 mg/dL (70-100); Potassium 3.8 mmol/L (3.5-5.0); Sodium 130 mmol/L (135-145); Total Protein 6.3 g/dL (6.4-8.9)
[2019-04-29 04:25] LABS: Urine Benzodiazepine Screen None Detected (None Detect); Urine Opiates Screen None Detected (None Detect)
[2019-04-29 04:33] LABS: Alcohol 294 mg/dL (<10)
[2019-04-29 04:37] LABS: Acetaminophen < 15 mcg/mL; Salicylate < 2.50 mg/dL (<30); TSH (Thyroid Stimulating Horm) 5.02 mcIU/mL (0.34-5.60)
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
[2019-04-29] MEDS ORDERED: LORazepam TAB(*) 1 MG PO ONE ×2 (08:51→09:26)
[2019-04-29] MEDS ORDERED: amLODIPine TAB* 5 MG PO ONE (09:11)
[2019-04-29] MEDS ORDERED: Venlafaxine EXT RELEASE CAP* 75 MG PO ONE (09:12)
[2019-04-29] MEDS ORDERED: Pantoprazole TAB * 40 MG TAB PO ONE (09:13)
[2019-04-29] MEDS ORDERED: Metoprolol Succinate XL TAB* 50 MG PO ONE (09:13)
[2019-04-29] MEDS ORDERED: Thiamine TAB* 100 MG TAB PO ONE (09:13)
[2019-04-29] MEDS ORDERED: BuPROPion XL* 150 MG TAB.XL PO ONE (09:14)
[2019-04-29] MEDS ORDERED: Gabapentin CAP(*) 300 MG PO ONE (09:14)
[2019-04-29] MEDS ORDERED: Aspirin EC TAB* 81 MG TAB.EC PO ONE (09:15)
[2019-04-29 09:28] LABS: Urine Appearance Clear; Urine Bilirubin Negative (Negative); Urine Blood Negative (Negative); Urine Color Yellow; Urine Glucose 1+(50 mg/dL) (Negative); Urine Ketones Negative (Negative); Urine Nitrite Negative (Negative); Urine Protein Negative (Negative); Urine Specific Gravity 1.013 (1.010-1.030); Urine Urobilinogen Negative (Negative)
[2019-04-29] MEDS ORDERED: Insulin REGULAR(*) 1 UNITS UNIT SUBCUT ONE (11:02)
[2019-04-29 11:15] VITALS: BP 151/96
== END 2019-04-29 12:45 | disposition home or self-care (01) ==
LOC: ED 02:36
DX: F10.929 Alcohol use, unspecified with intoxication, unspecified (principal); F39 Unspecified mood [affective] disorder; Z88.2 Allergy status to sulfonamides; Z88.8 Allergy status to other drugs, medicaments and biological substances; E11.9 Type 2 diabetes mellitus without complications; I25.119 Atherosclerotic heart disease of native coronary artery with unspecified angina pectoris; E78.00 Pure hypercholesterolemia, unspecified; I10 Essential (primary) hypertension; I25.2 Old myocardial infarction; J44.9 Chronic obstructive pulmonary disease, unspecified; K21.9 Gastro-esophageal reflux disease without esophagitis; F41.9 Anxiety disorder, unspecified; F32.9 Major depressive disorder, single episode, unspecified; F43.10 Post-traumatic stress disorder, unspecified; F17.210 Nicotine dependence, cigarettes, uncomplicated; Z79.899 Other long term (current) drug therapy; M51.34 Other intervertebral disc degeneration, thoracic region; K76.0 Fatty (change of) liver, not elsewhere classified; I70.0 Atherosclerosis of aorta; N20.0 Calculus of kidney
CPT/HCPCS: 36415; 72128; 72131; 80053; 80307; 80320; 80329; 81003; 84443; 85025; 99285; A9270-GY; G0480

== ENCOUNTER 2019-08-31 17:29 | Emergency (ER) | payer MEDICARE, MEDICAID ==
[2019-08-31] MEDS ORDERED: Acetaminophen TAB* 325 MG PO ONE (18:02)
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
--- OUTSIDE RECORDS SUMMARY | 2019-08-31 18:28 | XMS REPORT | Continuity of Care Document ---
:1960 External Reference #:[id number] Author Name Jigna Cuello MD (transmitted by agent of provider Jeri Vences) Address [address] [facility] [address], [place] [address] Care Team Providers Name Role Phone Jigna Cuello M.D. 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 Onset: 07/27/2018 Polyneuropathy Glenn Sutton M.D. Onset: 04/12/2019 History of cerebrovascular accident Glenn Sutton M.D. Onset: 04/12/2019 without residual deficits Abnormal involuntary movement Glenn Sutton M.D. Onset: 04/12/2019 Skin sensation disturbance Glenn Sutton M.D. Onset: 04/12/2019 Major depressive disorder, single Glenn Sutton M.D. Onset: 04/12/2019 episode, unspecified Type 2 diabetes mellitus Yissel Palmer M.D. Onset: 05/24/2019 Social History Type Date Description Comments Sex Unknown ETOH Use 07/06/2019 Consumes 2 pints of multiple relapses, liquor per day last one May 2019 ETOH Use 07/06/2019 Has consumed alcohol Multiple relapses, in the past last one May 2019 Recreational Drug Use Denies Drug Use Tobacco Use Start: Unknown Light tobacco smoker (10 or fewer cigarettes/day) Recreational Drug Use Former Drug User Smoking Status Reviewed: 07/06/19 Light tobacco smoker (10 or fewer cigarettes/day) Exercise Type/Frequency Exercises regularly Exercise Type/Frequency Walks 5 times a week 5 mile a day and gym Allergies, Adverse Reactions, Alerts Active Allergies Reaction Severity Comments Date Donepezil nightmares, hallucinations Severe 10/12/2013 Acamprosate Calcium Contact dermatitis 07/23/2018 Inactive Allergies NKDA 01/03/2011 Medications Active Medications SIG Qnty Indications Ordering Date Provider Disulfiram one po daily 30tabs F10.10 Jigna Cuello MD 07/06/2019 250mg Tablets Jardiance 1 by mouth every 30tabs R19.7 Jigna Cuello MD 05/06/2019 25mg Tablets day Sildenafil Citrate one tablet by 10tabs F52.21 Jigna Cuello MD 05/04/2019 50mg mouth one hour Tablets before intercourse Nicotine Polacrilex Week 1-6 take 1 72units Jigna Cuello MD 03/03/2019 4mg lozenge every 1-2 Lozenges hours as needed, not to exceed 5 lozenges in 6 hours Thiamine HCL 1 by mouth every 30tabs Jigna Cuello MD 03/02/2019 100mg day Tablets Bupropion 2 tabs by mouth 60tabs Jigna Cuello MD 03/02/2019 Hydrochloride ER (XL) every morning 150mg Tablets ER 24HR Norvasc 1 by mouth every 90tabs I25.10 Yasmine Stevenson, 08/11/2018 5mg Tablets day [employer] Lorazepam 1 by mouth twice a 45tabs Jigna Cuello MD 07/28/2018 1mg Tablets day as needed for anxiety or isomnia Cpap Mask And use as directed 1units G47.33 Jigna Cuello MD 07/23/2018 Supplies Device Myrbetriq one po daily Unknown 50mg Tablets ER 24HR Venlafaxine HCL ER 1 by mouth every 30caps Jigna Cuello MD 75mg day Caps ER 24HR Pantoprazole Sodium 1 by mouth every 90tabs Jigna Cuello MD day 40mg Tablets DR Gabapentin 1 by mouth two 60caps Jigna Cuello MD 300mg times a day Capsules Hydroxyzine HCL take 1 tab by 90tabs Jigna Cuello MD 50mg mouth at at Tablets bedtime Folic Acid 1 by mouth every 90tabs Jigna Cuello MD 1mg Tablets day Atorvastatin Calcium take 1 tablet at 90tabs Jigna Cuello MD bedtime 20mg Tablets Aspirin Low Dose 1 by mouth every 90units Jigna Cuello MD 81mg day Chewtabs Metoprolol Succinate 1.5 tablets by 135tabs Yasmine Stevenson, ER mouth every day [employer] 25mg Tablets ER 24HR Nitrostat one sl q5min up to QS Unknown 0.4mg Tablets 3 doses prn Sub History Medications Disulfiram one po daily 30tabs F10.10 Jigna Cuello MD 07/06/2019 - 500mg 07/06/2019 Tablets Steglatro 1 by mouth 30tabs R19.7 Jigna Cuello MD 05/04/2019 - 15mg every day 05/06/2019 Tablets Medications Administered in Office Medication SIG Qnty Indications Ordering Provider Date Technetium TC 99M Jeb Gerardo DO [facility] 08/04/2018 Tetrofosmin, Per Unit Dose Up To 40 Millicuries Injection Immunizations Description No Information Available Vital Signs Date Vital Result Comment 07/06/2019 11:16am Height 67 inches 5'7" Weight 195.00 lb Heart Rate 85 /min BP Systolic 132 mmHg BP Diastolic 85 mmHg O2 % BldC Oximetry 96 % BMI (Body Mass Index) 30.5 kg/m2 06/04/2019 1:13pm Height 67 inches 5'7" Weight 196.25 lb Heart Rate 76 /min BP Systolic Sitting 154 mmHg BP Diastolic Sitting 92 mmHg Respiratory Rate 18 /min BMI (Body Mass Index) 30.7 kg/m2 Results Test Date Facility Test Result H/L Range Note Laboratory test 07/06/2019 [facility] Hemoglobin A1c 7.5 High 5-7 finding Laboratory test 06/25/2019 [facility] Surgical SEE RESULT [address] [place] [address] [phone] Laboratory test 06/25/2019 [facility] Point of Care 121 mg/dL High 70-100 [address] [place] [address] [phone] Laboratory test 06/21/2019 [facility] PSA Diagnostic 1.935 ng/ mL Normal 0-4.0 3 finding [address] [place] [address] [phone] Laboratory test 04/29/2019 [facility] Point of Care 283 mg/dL High 70-100 4 finding [address] [place] [address] [phone] Urinalysis 04/29/2019 [facility] Urine Color Yellow Profile [address] [place] [address] [phone] Urine Appearance Clear Urine Specific [place] 1.013 Normal 1.010-1.030 Urine pH 6.0 Normal 5-9 Urine Urobilinogen Negative Negative Urine Ketones Negative Negative Urine Protein Negative Negative Urine Leukocytes Negative Negative Urine Blood Negative Negative Urine Nitrite Negative Negative Urine Bilirubin Negative Negative Urine Glucose 1+(50 mg/dL) Abnormal Negative Laboratory test finding 04/29/2019 [facility] Alcohol 294 mg/dL High <10 [address] [place] [address] [phone] Acetaminophen < 15 g/mL 5 Salicylate < 2.50 mg/dL <30 TSH (Thyroid Stim Horm) 5.02 mcIU/mL Normal 0.34-5.60 Laboratory test 04/29/2019 [facility] Point of 181 mg/dL High 70-100 6 finding [address] [facility] [place] [address] [phone] CBC Auto Diff 04/29/2019 [facility] White Blood 7.5 Normal 3.5 -10.[address] Count 10^3/[place] [address] [phone] Red Blood Count 4.49 10^6/uL Normal 4.18-5.48 Hemoglobin 15.2 g/dL Normal 14.0-18.0 Hematocrit 42 % Normal 42-52 Mean Corpuscular Volume 94 fL Normal 80-94 Mean Corpuscular Hemoglobin 34 pg High 27-31 Mean Corpuscular HGB Conc 36 g/dL Normal 31-36 Red Cell Distribution Width 15 % Normal 10-15 Platelet Count 208 10^3/uL Normal 150-450 Mean Platelet Volume 7.5 fL Normal 7.4-10.4 Abs Neutrophils 3.7 10^3/uL Normal 1.5-7.7 Abs Lymphocytes 3.3 10^3/uL Normal 1.0-4.8 Abs Monocytes 0.3 10^3/uL Normal 0-0.8 Abs Eosinophils 0.2 10^3/uL Normal 0-0.6 Abs Basophils 0.1 10^3/uL Normal 0-0.2 Abs Nucleated RBC 0.0 10^3/uL Granulocyte % 48.9 % Lymphocyte % 43.5 % Monocyte % 4.1 % Eosinophil % 2.6 % Basophil % 0.9 % Nucleated Red Blood Cells % 0.2 Comp Metabolic Panel 04/29/2019 [facility] Sodium 130 mmol/L Low 135-[address] [place] [address] [phone] Potassium 3.8 mmol/L Normal 3.5-5.0 Chloride 95 mmol/L Low 101-111 Co2 Carbon Dioxide 19 mmol/L Low 22-32 Anion Gap 16 mmol/L High 2-11 Glucose 217 mg/dL High 70-100 Blood Urea Nitrogen 15 mg/dL Normal 6-24 Creatinine 1.26 mg/dL High 0.67-1.17 BUN/Creatinine Ratio 11.9 Normal 8-20 Calcium 6.9 mg/dL Low 8.6-10.3 Total Protein 6.3 g/dL Low 6.4-8.9 Albumin 3.6 g/dL Normal 3.2-5.2 Globulin 2.7 g/dL Normal 2-4 Albumin/Globulin Ratio 1.3 Normal 1-3 Total Bilirubin 1.40 mg/dL High 0.2-1.0 Alkaline Phosphatase 122 U/L High 34-104 Alt 217 U/L High 7-52 Ast 589 U/L High 13-39 Egfr Non- 58.8 >60 Egfr 71.1 >60 7 Urine Drug 04/29/2019 [facility] Urine None Detected None Detect SCR ED & [address] A[place] [address] Screen [phone] Urine Barbiturates Screen None Detected None Detect Urine Benzodiazepine Screen None Detected None Detect Urine Cannabinoids Screen Presumptive Posi <SEE NOTE> Abnormal None Detect 8 Urine Cocaine Screen None Detected None Detect Urine Opiates Screen None Detected None Detect Urine Phencyclidine Screen None Detected None Detect 9 Laboratory test 04/24/2019 [facility] Alcohol 347 mg/dL High < [address] [place] [address] [phone] Inr/Protime 04/24/2019 [facility] Inr 1.33 High 0.82-1.[address] [place] [address] [phone] Comp Metabolic 04/24/2019 [facility] Sodium 133 mmol/L Low 135 -[address] [place] [address] [phone] Chloride 95 mmol/L Low 101-111 Co2 Carbon Dioxide 26 mmol/L Normal 22-32 Glucose 257 mg/dL High 70-100 Blood Urea Nitrogen 16 mg/dL Normal 6-24 Creatinine 1.05 mg/dL Normal 0.67-1.17 BUN/Creatinine Ratio 15.2 Normal 8-20 Calcium 7.4 mg/dL Low 8.6-10.3 Total Protein 7.1 g/dL Normal 6.4-8.9 Albumin 4.1 g/dL Normal 3.2-5.2 Globulin 3.0 g/dL Normal 2-4 Albumin/Globulin Ratio 1.4 Normal 1-3 Total Bilirubin 0.80 mg/dL Normal 0.2-1.0 Alkaline Phosphatase 97 U/L Normal 34-104 Alt 117 U/L High 7-52 Egfr Non- 72.5 >60 Egfr 87.8 >60 11 Potassium 4.1 mmol/L Normal 3.5-5.0 Anion Gap 12 mmol/L High 2-11 Ast 205 U/L High 13-39 CBC Auto 04/24/2019 [facility] White Blood 5.9 10^3/uL Normal 3.5-10.[address] [place] [address] [phone] Red Blood Count 4.55 10^6/uL Normal 4.18-5.48 Hemoglobin 14.7 g/dL Normal 14.0-18.0 Hematocrit 43 % Normal 42-52 Mean Corpuscular Volume 95 fL High 80-94 Mean Corpuscular Hemoglobin 32 pg High 27-31 Mean Corpuscular HGB Conc 34 g/dL Normal 31-36 Red Cell Distribution Width 15 % Normal 10-15 Platelet Count 216 10^3/uL Normal 150-450 Mean Platelet Volume 7.0 fL Low 7.4-10.4 Abs Neutrophils 3.0 10^3/uL Normal 1.5-7.7 Abs Lymphocytes 2.3 10^3/uL Normal 1.0-4.8 Abs Monocytes 0.5 10^3/uL Normal 0-0.8 Abs Eosinophils 0.1 10^3/uL Normal 0-0.6 Abs Basophils 0.0 10^3/uL Normal 0-0.2 Abs Nucleated RBC 0.0 10^3/uL Granulocyte % 50.3 % Lymphocyte % 38.9 % Monocyte % 8.1 % Eosinophil % 2.3 % Basophil % 0.4 % Nucleated Red Blood Cells % 0.2 Urine Culture And 03/17/2019 [facility] Urine Culture SEE RESULT [address] [place] [address] [phone] Laboratory test 03/17/2019 [facility] Acetaminophen < 15 g/mL [address] [place] [address] [phone] Alcohol 212 mg/dL High <10 Salicylate < 2.50 mg/dL <30 TSH (Thyroid Stim Horm) 5.71 mcIU/mL High 0.34-5.60 CBC Auto 03/17/2019 [facility] White Blood 8.3 10^3/uL Normal 3.5-10.[address] [place] [address] [phone] Red Blood Count 4.15 10^6/uL Low 4.18-5.48 Hemoglobin 13.8 g/dL Low 14.0-18.0 Hematocrit 41 % Low 42-52 Mean Corpuscular Volume 97 fL High 80-94 Mean Corpuscular Hemoglobin 33 pg High 27-31 Mean Corpuscular HGB Conc 34 g/dL Normal 31-36 Red Cell Distribution Width 14 % Normal 10-15 Platelet Count 199 10^3/uL Normal 150-450 Mean Platelet Volume 7.3 fL Low 7.4-10.4 Abs Neutrophils 4.1 10^3/uL Normal 1.5-7.7 Abs Lymphocytes 3.1 10^3/uL Normal 1.0-4.8 Abs Monocytes 0.6 10^3/uL Normal 0-0.8 Abs Eosinophils 0.3 10^3/uL Normal 0-0.6 Abs Basophils 0.1 10^3/uL Normal 0-0.2 Abs Nucleated RBC 0.0 10^3/uL Granulocyte % 50.0 % Lymphocyte % 37.9 % Monocyte % 7.7 % Eosinophil % 3.1 % Basophil % 1.3 % Nucleated Red Blood Cells % 0.1 Urine Drug 03/17/2019 [facility] Urine None Detected None Detect SCR ED & [address] A[place] [address] Screen [phone] Urine Barbiturates Screen None Detected None Detect Urine Benzodiazepine Screen Presumptive Posi <SEE NOTE> Abnormal None Detect 14 Urine Cannabinoids Screen Presumptive Posi <SEE NOTE> Abnormal None Detect 15 Urine Cocaine Screen None Detected None Detect Urine Opiates Screen None Detected None Detect Urine Phencyclidine Screen None Detected None Detect 16 Urinalysis Profile 03/17/2019 [facility] Urine Color [address] [place] [address] [phone] Urine Appearance Cloudy Urine Specific [place] 1.021 Normal 1.010-1.030 Urine pH 5.0 Normal 5-9 Urine Urobilinogen Negative Negative Urine Ketones [...] Hyaline Casts Present Abnormal Absent Comp Metabolic 03/17/2019 [facility] Sodium 137 mmol/L Normal 135-145 Panel [address] [place] [address] [phone] Potassium 3.2 mmol/L Low 3.5-5.0 Chloride 100 mmol/L Low 101-111 Co2 Carbon Dioxide 21 mmol/L Low 22-32 Anion Gap 16 mmol/L High 2-11 Glucose 195 mg/dL High 70-100 Blood Urea Nitrogen 17 mg/dL Normal 6-24 Creatinine 0.97 mg/dL Normal 0.67-1.17 BUN/Creatinine Ratio 17.5 Normal 8-20 Calcium 8.5 mg/dL Low 8.6-10.3 Total Protein 7.0 g/dL Normal 6.4-8.9 Albumin 4.2 g/dL Normal 3.2-5.2 Globulin 2.8 g/dL Normal 2-4 Albumin/Globulin Ratio 1.5 Normal 1-3 Total Bilirubin 0.40 mg/dL Normal 0.2-1.0 Alkaline Phosphatase 64 U/L Normal 34-104 Alt 60 U/L High 7-52 Ast 58 U/L High 13-39 Egfr Non- 79.5 >60 Egfr 96.2 >60 17 Laboratory test 03/02/2019 [facility] Hemoglobin A1c 7.2 High 5-7 finding Laboratory test 02/11/2019 [facility] Potassium Redraw TNP mmol/ L 3.5-5.0 [address] [place] [address] [phone] Ast Redraw TNP U/L 13-39 19 CBC Auto 02/11/2019 [facility] White Blood 5.7 10^3/uL Normal 3.5-10.[address] Count [place], [place] [id number] [phone] Red Blood Count 4.18 10^6/uL Normal 4.18-5.48 Hemoglobin 14.0 g/dL Normal 14.0-18.0 Hematocrit 40 % Low 42-52 Mean Corpuscular Volume 95 fL High 80-94 Mean Corpuscular Hemoglobin 34 pg High 27-31 Mean Corpuscular HGB Conc 35 g/dL Normal 31-36 Red Cell Distribution Width 14 % Normal 10.5-15 Platelet Count 135 10^3/uL Low 150-450 Mean Platelet Volume 7.6 fL Normal 7.4-10.4 Abs Neutrophils 3.8 10^3/uL Normal 1.5-7.7 Abs Lymphocytes 1.5 10^3/uL Normal 1.0-4.8 Abs Monocytes 0.3 10^3/uL Normal 0-0.8 Abs Eosinophils 0.1 10^3/uL Normal 0-0.6 Abs Basophils 0.1 10^3/uL Normal 0-0.2 Abs Nucleated RBC 0.0 10^3/uL Granulocyte % 65.7 % Lymphocyte % 26.0 % Monocyte % 4.6 % Eosinophil % 2.4 % Basophil % 1.3 % Nucleated Red Blood Cells % 0.1 Comp Metabolic Panel 02/11/2019 [facility] Sodium 132 mmol/L Low 135-[address] [place] [address] [phone] Chloride 95 mmol/L Low 101-111 Co2 Carbon Dioxide 20 mmol/L Low 22-32 Glucose 189 mg/dL High 70-100 Blood Urea Nitrogen 10 mg/dL Normal 6-24 Creatinine 1.40 mg/dL High 0.67-1.17 BUN/Creatinine Ratio 7.1 Low 8-20 Calcium 7.4 mg/dL Low 8.6-10.3 Total Protein 7.0 g/dL Normal 6.4-8.9 Albumin 4.1 g/dL Normal 3.2-5.2 Globulin 2.9 g/dL Normal 2-4 Albumin/Globulin Ratio 1.4 Normal 1-3 Total Bilirubin 1.80 mg/dL High 0.2-1.0 Alkaline Phosphatase 102 U/L Normal 34-104 Egfr Non- 52.1 >60 Egfr 63.0 >60 20 Alt 80 U/L High 7-52 Potassium TNP mmol/L 3.5-5.0 21 Anion Gap 17 mmol/L High 2-11 Ast TNP U/L 13-39 22 Laboratory test 02/11/2019 [facility] Acetaminophen < 15 g/mL 23 finding [address] [place] [address] [phone] Alcohol < 10 mg/dL Normal <10 Salicylate < 2.50 mg/dL <30 TSH (Thyroid Stim Horm) 2.47 mcIU/mL Normal 0.34-5.60 Urinalysis Profile 02/11/2019 [facility] Urine Color [address] [place] [address] [phone] Urine Appearance Cloudy Urine Specific [place] 1.021 Normal 1.010-1.030 Urine pH 5.0 Normal 5-9 Urine Urobilinogen Positive Abnormal Negative Urine [...] Casts Present Abnormal Absent Urine Drug 02/11/2019 [facility] Urine None Detected None Detect SCR ED & [address] [facility] A[place] [address] Screen [phone] Urine Barbiturates Screen None Detected None Detect Urine Benzodiazepine Screen Presumptive Posi <SEE NOTE> Abnormal None Detect 24 Urine Cannabinoids Screen Presumptive Posi <SEE NOTE> Abnormal None Detect 25 Urine Cocaine Screen None Detected None Detect Urine Opiates Screen None Detected None Detect Urine Phencyclidine Screen None Detected None Detect 26 Urine Culture And 02/11/2019 [facility] Urine SEE RESULT [address] [place] [address] [phone] Laboratory test 02/09/2019 [facility] Troponin-I 0.01 ng/mL < 0.0 [address] (TnI) 4 [place] [address] [phone] CBC Auto Diff 02/08/2019 [facility] White Blood 6.5 10^3/uL Normal 3.5- [address] Count 10.8 [place] [address] [phone] Red Blood Count 4.35 10^6/uL Normal 4.18-5.48 Hemoglobin 14.1 g/dL Normal 14.0-18.0 Hematocrit 41 % Low 42-52 Mean Corpuscular Volume 95 fL High 80-94 Mean Corpuscular Hemoglobin 32 pg High 27-31 Mean Corpuscular HGB Conc 34 g/dL Normal 31-36 Red Cell Distribution Width 15 % Normal 10.5-15 Platelet Count 159 10^3/uL Normal 150-450 Mean Platelet Volume 7.0 fL Low 7.4-10.4 Abs Neutrophils 2.7 10^3/uL Normal 1.5-7.7 Abs Lymphocytes 3.1 10^3/uL Normal 1.0-4.8 Abs Monocytes 0.4 10^3/uL Normal 0-0.8 Abs Eosinophils 0.2 10^3/uL Normal 0-0.6 Abs Basophils 0.0 10^3/uL Normal 0-0.2 Abs Nucleated RBC 0.0 10^3/uL Granulocyte % 42.2 % Lymphocyte % 48.7 % Monocyte % 6.4 % Eosinophil % 2.5 % Basophil % 0.2 % Nucleated Red Blood Cells % 0.1 Inr/Protime 02/08/2019 [facility] Inr 1.33 High 0.82-1.[address] [place] [id number] [phone] Laboratory test 02/08/2019 [facility] Partial 34.0 Normal 26.0 -36.[address] [address] Time PTT [phone] Comp Metabolic 02/08/2019 [facility] Sodium 138 mmol/L Normal 135-[address] [place] [address] [phone] Chloride 99 mmol/L Low 101-111 Co2 Carbon Dioxide 25 mmol/L Normal 22-32 Glucose 151 mg/dL High 70-100 Blood Urea Nitrogen 14 mg/dL Normal 6-24 Creatinine 0.87 mg/dL Normal 0.67-1.17 BUN/Creatinine Ratio 16.1 Normal 8-20 Calcium 7.8 mg/dL Low 8.6-10.3 Total Protein 6.9 g/dL Normal 6.4-8.9 Albumin 3.9 g/dL Normal 3.2-5.2 Globulin 3.0 g/dL Normal 2-4 Albumin/Globulin Ratio 1.3 Normal 1-3 Total Bilirubin 1.30 mg/dL High 0.2-1.0 Alkaline Phosphatase 97 U/L Normal 34-104 Alt 86 U/L High 7-52 Egfr Non- 90.1 >60 Egfr 109.1 >60 30 Potassium TNP mmol/L 3.5-5.0 31 Anion Gap 14 mmol/L High 2-11 Ast TNP U/L 13-39 32 Laboratory test 02/08/2019 [facility] Magnesium 1.7 mg/dL Low 1.9-2.7 finding [address] [place] [address] [phone] Amylase 59 U/L Normal 29-103 Lipase 47 U/L Normal 11.0-82.0 Troponin-I (TnI) 0.01 ng/mL <0.04 33 Alcohol 259 mg/dL High <10 1 SEE RESULT BELOW Name: SIM CHUN : [address]: Patricia Fontana MD Acct: [id number] Unit: [id number] AGE: 59 Location: ENDO Re06/25/19 SEX: M Status: DEP REF SPEC: [id number] AYLA: 06/25/19 DR: Patricia Glover MD REQ: [id number] RECD: 06/25/19 STATUS: DEJA AGARWAL DR: Jigna Cuello MD _ ORDERED: LEVEL 4/9 FINAL DIAGNOSIS 1. Colon, transverse, biopsy: -- Sessile serrated adenomatous polyp. -- No high-grade dysplasia or malignancy identified. 2. Colon, hepatic flexure, biopsy: -- Sessile serrated adenomatous polyp. -- No high-grade dysplasia or malignancy identified. 3. Colon, proximal transverse, biopsy: -- Tubular adenoma. -- No high grade dysplasia or malignancy. 4. Colon, splenic flexure, biopsy: -- Tubular adenoma. -- No high grade dysplasia or malignancy. 5. Colon, descending, biopsy: -- Tubular adenoma. -- No high grade dysplasia or malignancy. 6. Colon, sigmoid, proximal, biopsy: -- Tubular adenoma. -- No high grade dysplasia or malignancy. 7. Colon, mid sigmoid, biopsy: -- Hyperplastic polyp. 8. Colon, distal sigmoid, biopsy: -- Tubular adenoma (multiple fragments). -- No high grade dysplasia or malignancy. 9. Colon, rectum, biopsy: -- Hyperplastic polyps. CONTINUED ON NEXT PAGE DEPARTMENT OF PATHOLOGY, [address] [place] [address] Tommie Grajeda M.D. Director [facility] # [id number] CLINICAL HISTORY History of polyps POST-OPERATIVE DIAGNOSIS Colonoscopy: to terminal ileum; johnson diverticulosis left greater than right; hepatic flexure 4 mm cold snare 3 mm jumbo; transverse 3 mm jumbo; 4 mm cold snare (2); splenic 3 mm jumbo; descending 3 mm jumbo; sigmoid proximal cold snare 4 mm (2); mid 3 mm jumbo; sigmoid 4 mm cold snare (2); rectal 2 mm (2) jumbo; hemorrhoids GROSS DESCRIPTION 1. The specimen is received in formalin labeled, Transverse Colon Polyps, and consists of a 1.2 x 0.9 by up to 0.3 cm aggregate of villar-pink irregular to polypoid soft tissue fragments which is submitted entirely in one cassette. 2. The specimen is received in formalin labeled, Biopsy Hepatic Flexure Colon Polyp, and consists of a 0.6 x 0.5 by up to 0.3 cm aggregate of villar irregular to polypoid soft tissue fragments which is submitted entirely in one cassette. 3. The specimen is received in formalin labeled, Biopsy Proximal Transverse Colon Polyps, and consists of three villar-pink irregular to polypoid soft tissue fragments aggregating 0.4 x 0.4 x 0.2 cm which are submitted entirely in one cassette. 4. The specimen is received in formalin labeled, Biopsy Splenic Flexure Colon Polyp, and consists of a 0.3 x 0.3 x 0.3 cm villar-pink polypoid soft tissue fragment which is submitted entirely in one cassette. 5. The specimen is received in formalin labeled, Biopsy Descending Colon Polyp, and consists of two villar irregular to polypoid soft tissue fragments measuring 0.2 x 0.2 x 0.1 cm and 0.3 x 0.3 x 0.2 cm which are submitted entirely in one cassette. 6. The specimen is received in formalin labeled, Proximal Sigmoid Colon Polyps, and consists of a 0.4 x 0.3 by up to 0.2 cm villar polypoid soft tissue fragment which is submitted entirely in one cassette. 7. The specimen is received in formalin labeled, Biopsy Mid Sigmoid Colon Polyp, and consists of a 0.5 by up to 0.3 x 0.2 cm villar-pink polypoid soft tissue fragment which is submitted entirely in one cassette. 8. The specimen is received in formalin labeled, Distal Sigmoid Colon Polyps, and consists of a 0.7 x 0.5 x 0.2 cm aggregate of villar-pink irregular to polypoid soft tissue fragments which is submitted entirely in one cassette. 9. The specimen is received in formalin labeled, Biopsy Rectal Polyps, and consists of two villar-pink irregular to polypoid soft tissue fragments averaging 0.3 x 0.3 x 0.2 cm which are submitted entirely in one cassette. CONTINUED ON NEXT PAGE DEPARTMENT OF PATHOLOGY, [address] [place] [address] Tommie Grajeda M.D. Director [facility] # [id number] Signed by and Reported on: Tommie Grajeda MD 1211 END OF REPORT DEPARTMENT OF PATHOLOGY, [address] [place] [id number] Tommie Grajeda M.D. Director [facility] # [id number] 2 Roller Staker: [id number] 3 Serum levels of PSA measured using the [place] [place] DXI Hybritech immunoassay should not be interpreted as absolute evidence of the presence or absence of disease. The PSA value should be used in conjunction with other pertinent clinical diagnostic procedures. The values obtained with different assay methods or kits cannot be used interchangeably. 4 Roller Staker: [id number] 5 Therapeutic concentration: <50 ug/mL Toxic concentration: >120 ug/mL 6 Roller Staker: [id number] 7 Because ethnic data is not always [...] 5 Kidney failure <15 (or dialysis) 8 Presumptive Positive Presumptive positive results are unconfirmed. 9 The urine specimen was tested at the listed cutoffs: Drug class test level (ng/mL) Amphetamines 500 Barbiturates 200 Benzodiazepine metabolites 200 Cocaine metabolites 150 Cannabinoids 50 Opiates 300 Pcp 25 Specimen was received without chain of custody. Results should be used for medical purposes only. 10 Standard intensity warfarin therapeutic range: 2.0-3.0 High intensity warfarin therapeutic range: 2.5-3.5 11 Because ethnic data is not always [...] 5 Kidney failure <15 (or dialysis) 12 SEE RESULT BELOW Name: SIM CHUN : [address]: Abel Lam MD Acct: [id number] Unit: [id number] AGE: 58 Location: [facility] Re03/18/19 SEX: M Status: ADM IN SPEC: [id number] AYLA: 03/17/[address] [facility] [address]: Louis Mayo MD REQ: [id number] RECD: 03/17/19 STATUS: COMP REUBENHR DR: Jigna Cuello MD _ SOURCE: URINE SPDESC: ORDERED: Urine Culture Procedure Result Reported Site Urine Culture Final 03/19/19- 0920 ML No growth of clinically significant organisms * ML - Main Lab . END OF REPORT DEPARTMENT OF PATHOLOGY, [address] [place] [address] Tommie Grajeda M.D. Director [facility] # [id number] 13 Therapeutic concentration: <50 ug/mL Toxic concentration: >120 ug/mL 14 Presumptive Positive Presumptive positive results are unconfirmed. 15 Presumptive Positive Presumptive positive results are unconfirmed. 16 The urine specimen was tested at the listed cutoffs: Drug class test level (ng/mL) Amphetamines 500 Barbiturates 200 Benzodiazepine metabolites 200 Cocaine metabolites 150 Cannabinoids 50 Opiates 300 Pcp 25 Specimen was received without chain of custody. Results should be used for medical purposes only. 17 Because ethnic data is not always [...] 5 Kidney failure <15 (or dialysis) 18 Specimen Hemolyzed. Result may not be valid. Unable to report test result due to hemolysis. 19 Unable to report test result due to hemolysis. 20 Because ethnic data is not always readily [...] 15-29 5 Kidney failure <15 (or dialysis) 21 Specimen Hemolyzed. Result may not be valid. Unable to report test result due to hemolysis. 22 Unable to report test result due to hemolysis. 23 Therapeutic concentration: <50 ug/mL Toxic concentration: >120 ug/mL 24 Presumptive Positive Presumptive positive results are unconfirmed. 25 Presumptive Positive Presumptive positive results are unconfirmed. 26 The urine specimen was tested at the listed cutoffs: Drug class test level (ng/mL) Amphetamines 500 Barbiturates 200 Benzodiazepine metabolites 200 Cocaine metabolites 150 Cannabinoids 50 Opiates 300 Pcp 25 Specimen was received without chain of custody. Results should be used for medical purposes only. 27 SEE RESULT BELOW Name: SIM CHUN : [address]: Barbara Rocha DO Acct: [id number] Unit: [id number] AGE: 58 Location: [place] [address] Re02/11/19 SEX: M Status: ADM Moan SPEC: [id number] AYLA: 02/11/19-[address] [facility] [address]: Louis Mayo MD REQ: [id number] RECD: 02/11/19 STATUS: COMP OT DR: Jigna Cuello MD _ SOURCE: URINE [facility]: ORDERED: Urine Culture Procedure Result Reported Site Urine Culture Final 02/12/19- 1212 ML No Growth (<1,000 CFU/mL) * ML - Main Lab . END OF REPORT DEPARTMENT OF PATHOLOGY, [address] [place] [address] Tommie Grajeda M.D. Director [facility] # [id number] 28 Troponin-I testing on Plasma Separator Tubes (PST) has a known false positive rate of 0.20-0.40%. All positive troponins reflex immediately to secondary confirmatory testing. Using the [employer] Shared DxI 800 Access Immunoassay systems, the 99th percentile upper reference limit was demonstrated to be < 0.03 ng/mL. 29 Standard intensity warfarin therapeutic range: 2.0-3.0 High intensity warfarin therapeutic range: 2.5-3.5 30 Because ethnic data is not always [...] 5 Kidney failure <15 (or dialysis) 31 Specimen Hemolyzed. Result may not be valid. Unable to report test result due to hemolysis. 32 Unable to report test result due to hemolysis. 33 Troponin-I testing on Plasma Separator Tubes (PST) has a known false positive rate of 0.20-0.40%. All positive troponins reflex immediately to secondary confirmatory testing. Using the I [employer] Shared DxI 800 Access Immunoassay systems, the 99th percentile upper reference limit was demonstrated to be < 0.03 ng/mL. Procedures Date Code Description Status 06/25/2019 [id number] Colonoscopy Completed 12/03/2018 [id number] Diabetic Retinal Eye Exam Completed 08/18/2018 [id number] Diabetic Foot Exam Completed 08/05/2018 [id number] Diabetic Retinal Eye Exam Completed 02/22/2000 [id number] Diabetic Retinal Eye Exam Completed Medical Devices Description No Information Available Encounters Type Date Location Provider Dx Diagnosis Office Visit 06/04/2019 [facility]oy [place], R20.2 Paresthesia of skin 1:30p [facility] R25.1 Tremor, unspecified Z86.73 Prsnl hx of TIA (TIA), and cereb infrc w/o resid deficits F32.9 Major depressive disorder, single episode, unspecified G62.9 Polyneuropathy, unspecified Office Visit 05/04/2019 10:40a [facility] Jigna Cuello, S20.212D Contusion of left Medicine - MD front wall of Ccmob thorax, subsequent encounter F52.21 Male erectile disorder R19.7 Diarrhea, unspecified E11.9 Type 2 diabetes mellitus without complications Office Visit 04/12/2019 [place] [facility] G62.9 Polyneuropathy, 11:00a [facility]rologic Renetta Sutton. unspecified [facility] Of [facility] F32.9 Major depressive disorder, single episode, unspecified Z86.73 Prsnl hx of TIA (TIA), and cereb infrc w/o resid deficits R25.1 Tremor, unspecified R20.2 Paresthesia of skin Office Visit 03/02/2019 4:00p [facility] Internal Jigna Cuello, E11.9 Type 2 diabetes Medicine - MD mellitus without Ccmob complications I10 Essential (primary) hypertension F17.200 Nicotine dependence, unspecified, uncomplicated M72.2 Plantar fascial fibromatosis F10.21 Alcohol dependence, in remission Office Visit 02/15/2019 [facility] Raymon F10.230 Alcohol dependence 9:31a Assoc,jose Palmer PA with withdrawal, Hospitalists uncomplicated I25.10 Athscl heart disease of [place] coronary artery w/o ang pctrs I10 Essential (primary) hypertension E11.9 Type 2 diabetes mellitus without complications Office Visit 02/14/2019 [facility] Raymon F10.230 Alcohol dependence 9:31a Assoc,MIRYAM Anthony with withdrawal, Hospitalists uncomplicated E87.8 Oth disorders of electrolyte and fluid balance, NEC G62.9 Polyneuropathy, unspecified I25.10 Athscl heart disease of [place] coronary artery w/o ang pctrs I10 Essential (primary) hypertension F32.9 Major depressive disorder, single episode, unspecified E11.9 Type 2 diabetes mellitus without complications K22.70 Guzman's esophagus without dysplasia Office Visit 02/13/2019 [facility] Raymon F10.230 Alcohol dependence 9:30a Assoc,jose Palmer PA with withdrawal, Hospitalists uncomplicated E87.8 Oth disorders of electrolyte and fluid balance, NEC G62.9 Polyneuropathy, unspecified I25.10 Athscl heart disease of [place] coronary artery w/o ang pctrs I10 Essential (primary) hypertension E11.9 Type 2 diabetes mellitus without complications R07.9 Chest pain, unspecified Office Visit 02/12/2019 [facility] Taylor F10.230 Alcohol dependence 9:30a Assoc,jose Ervin NP with withdrawal, Hospitalists uncomplicated E87.8 Oth disorders of electrolyte and fluid balance, NEC I25.10 Athscl heart disease of [place] coronary artery w/o ang pctrs I10 Essential (primary) hypertension F32.9 Major depressive disorder, single episode, unspecified E11.40 Type 2 diabetes mellitus with diabetic neuropathy, unsp K22.70 Guzman's esophagus without dysplasia F17.200 Nicotine dependence, unspecified, uncomplicated Office Visit 02/11/2019 [facility] F10.230 Alcohol dependence 9:30a Assoc,jose Fishman NP with withdrawal, Hospitalists uncomplicated N17.9 Acute kidney failure, unspecified I25.10 Athscl heart disease of [place] coronary artery w/o ang pctrs I10 Essential (primary) hypertension Assessments Date Code Description Provider 07/06/2019 E11.9 Type 2 diabetes mellitus without Jigna Cuello MD complications 07/06/2019 I10 Essential (primary) hypertension Jigna Cuello MD 07/06/2019 F10.10 Alcohol abuse, uncomplicated Jigna Cuello MD 07/06/2019 Z23 Encounter for immunization Jigna Cuello MD 06/04/2019 R20.2 Paresthesia of skin Leroy Arriola, N.P. 06/04/2019 R25.1 Tremor, unspecified Leroy Arriola, N.P. 06/04/2019 Z86.73 Personal history of transient ischemic Leroy Arriola, N.P. attack (TIA), and cer 06/04/2019 F32.9 Major depressive disorder, single episode, Leroytristin Arriola , N.P. unspecified 06/04/2019 G62.9 Polyneuropathy, unspecified Leroy Arriola, N.P. 05/04/2019 S20.212D Contusion of left front wall of thorax, Jigna Cuello MD subsequent encounter 05/04/2019 F52.21 Male erectile disorder Jigna Cuello MD 05/04/2019 R19.7 Diarrhea, unspecified Jigna Cuello MD 05/04/2019 E11.9 Type 2 diabetes mellitus without Jigna Cuello MD complications 04/12/2019 G62.9 Polyneuropathy, unspecified Glenn Sutton M.D. 04/12/2019 F32.9 Major depressive disorder, single episode, Glenn Sutton M.D. unspecified 04/12/2019 Z86.73 Personal history of transient ischemic Glenn Sutton M.D. attack (TIA), and cer 04/12/2019 R25.1 Tremor, unspecified Glenn Sutton M.D. 04/12/2019 R20.2 Paresthesia of skin Glenn Sutton M.D. 03/02/2019 E11.9 Type 2 diabetes mellitus without Jigna Cuello MD complications 03/02/2019 I10 Essential (primary) hypertension Jigna Cuello MD 03/02/2019 F17.200 Nicotine dependence, unspecified, Jigna Cuello MD uncomplicated 03/02/2019 M72.2 Plantar fascial fibromatosis Jigna Cuello MD 03/02/2019 F10.21 Alcohol dependence, in remission Jigna Cuello MD 02/15/2019 F10.230 Alcohol dependence with withdrawal, MIRYAM Woodson uncomplicated 02/15/2019 I25.10 Atherosclerotic heart disease of [place] MIRYAM Woodson coronary artery with 02/15/2019 I10 Essential (primary) hypertension MIRYAM Woodson 02/15/2019 E11.9 Type 2 diabetes mellitus without MIRYAM Woodson complications 02/14/2019 F10.230 Alcohol dependence with withdrawal, MIRYAM Woodson uncomplicated 02/14/2019 E87.8 Oth disorders of electrolyte and fluid MIRYAM Woodson balance, NEC 02/14/2019 G62.9 Polyneuropathy, unspecified MIRYAM Woodson 02/14/2019 I25.10 Atherosclerotic heart disease of [place] MIRYAM Woodson coronary artery with 02/14/2019 I10 Essential (primary) hypertension MIRYAM Woodson 02/14/2019 F32.9 Major depressive disorder, single episode, MIRYAM Woodson unspecified 02/14/2019 E11.9 Type 2 diabetes mellitus without MIRYAM Woodson complications 02/14/2019 K22.70 Guzman's esophagus without dysplasia MIRYAM Woodson 02/13/2019 F10.230 Alcohol dependence with withdrawal, MIRYAM Woodson uncomplicated 02/13/2019 E87.8 Oth disorders of electrolyte and fluid MIRYAM Woodson balance, NEC 02/13/2019 G62.9 Polyneuropathy, unspecified MIRYAM Woodson 02/13/2019 I25.10 Atherosclerotic heart disease of [place] MIRYAM Woodson coronary artery with 02/13/2019 I10 Essential (primary) hypertension MIRYAM Woodson 02/13/2019 E11.9 Type 2 diabetes mellitus without MIRYAM Woodson complications 02/13/2019 R07.9 Chest pain, unspecified MIRYAM Woodson 02/12/2019 F10.230 Alcohol dependence with withdrawal, Taylor Ervin, [employer] uncomplicated 02/12/2019 E87.8 Oth disorders of electrolyte and fluid Taylorvalentino Ervin NP balance, NEC 02/12/2019 I25.10 Atherosclerotic heart disease of [place] Taylor ErvinHOANG coronary artery with 02/12/2019 I10 Essential (primary) hypertension Taylorvalentino Ervin, [employer] 02/12/2019 F32.9 Major depressive disorder, single episode, Taylor LeonHOANG soni unspecified 02/12/2019 E11.40 Type 2 diabetes mellitus with diabetic Taylor Ervin NP neuropathy, unsp 02/12/2019 K22.70 Guzman's esophagus without dysplasia Taylorvalentino Ervin NP 02/12/2019 F17.200 Nicotine dependence, unspecified, Taylor HOANG Ervin uncomplicated 02/11/2019 F10.230 Alcohol dependence with withdrawal, Radha Sravanthi, HOANG uncomplicated 02/11/2019 N17.9 Acute kidney failure, unspecified Radha MalloyHOANG gutierrez 02/11/2019 I25.10 Atherosclerotic heart disease of [place] Radha FishmanHOANG coronary artery with 02/11/2019 I10 Essential (primary) hypertension Radha Fishman NP Plan of Treatment Future Appointment(s):07/13/2019 8:30 am - Leroy Arriola, N.P. at [facility]07/06/2019 - Jigna Cuello MDE11.9 Type 2 diabetes mellitus without complicationsComments:Your A1c is 7.5%, so you are near the goal for diabetes control. If the A1c is higher at the next visit, we will need to add another medication. For now though I recommend continuing your current regimen of daily walks and Jardiance. Abstaining from alcohol will also help maintain your blood sugars better controlledFollow up:[address] JovelI10 Essential (primary) hypertensionComments:Continue with your current medication.F10.10 Alcohol abuse, uncomplicatedNew Medication:Disulfiram 250 mg - one po dailyDisulfiram 500 mg - one po dailyComments:Congratulations on your recent sobriety. I recommend you continue with AA meetings and consider taking the the Antabuse [id number] Encounter for immunizationImmunizations/Injections: Influenza Virus Vaccine, Quadrivalent (Cciiv4), Derived From [employer] Goals 07/06/2019 - TANISHA Hernandez1.9 Type 2 diabetes mellitus without complicationsGoal Hemoglobin A1c is less than 7.0% in ages 18-74 Goal Hemoglobin A1c is between 7.0% and 8.0% in age over 75 Goal Blood pressure is less than 130/85. Cholesterol should be lowered by a high or moderate-dose statin. Functional Status Description No Information Available Mental Status Description No Information Available Referrals Description No Information Available
--- OUTSIDE RECORDS SUMMARY | 2019-08-31 18:28 | XMS REPORT ---
:1960 Author Organization [facility] Care Team Providers Name Role Phone Anant Esquivel Primary Care Physician Unavailable Allergies, Adverse Reactions, Alerts Allergy Code CodeSystem Reaction Severity Criticality Status Start Substance Date Moderate Medications Medication Medication Medication Start Stop Route Dose Status Fill Code CodeSystem Date Date Instructions lorazepam RxNorm 2019- oral 1 mg completed for 30 - 04-11 tablet day(s) venlafaxine 356848 RxNorm 2019- oral 75 mg active for 30 -07 25- capsule,e day(s) xtended release 24hr bupropion HCl 347748 RxNorm 2019- oral 150 mg active for 30 -05 25- tablet day(s) extended release 24 hr gabapentin 895348 RxNorm 2019- oral 300 mg active for 30 -03 24-07 capsule day(s) lorazepam RxNorm 2019- oral 1 mg completed for 30 5- 06-12 tablet day(s) hydroxyzine 762860 RxNorm 2019- oral 50 mg active for 30 HCl - 10-07 tablet day(s) lorazepam RxNorm 2019- oral 1 mg active for 30 6-14 08-29 tablet day(s) bupropion HCl 424013 RxNorm 2019- oral 150 mg completed for 30 -27 03-09 tablet day(s) extended release 24 hr lorazepam 203618 RxNorm 2019- oral 1 mg completed for 30 - 05-11 tablet day(s) Problems Problem Name Code CodeSystem Alternate Alternate Start End Status Narrative Code CodeSystem Date Date Post-traumatic 08843471 SNOMED-CT Active stress 3-29 disorder, unspecified Alcohol 24117597 SNOMED-CT Active dependence, 3-29 uncomplicated Recurrent 29020509 SNOMED-CT 2019-0 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, current episode mild Relevant diagnostic tests/laboratory data Narrative No Information Procedures Procedure Code CodeSystem Target Date of Status Service Device Device Device Name Site Procedure Delivery Code Name UID Location Psychotherap [id number] SNOMED-CT () 2019-03-23 complete Mental y, 45 88 d Health- minutes with [place] patient when [address] with an [facility], and [facility], service [id number] (List [id number] separately in addition to the code for primary procedure) Psychotherap [id number] SNOMED-CT () 2019-04-13 complete Mental y, 30 87 d Health- minutes with [place] patient when [facility] performed [address] [place] [address] [facility], and [facility], service [id number] (List [id number] separately in addition to the code for primary procedure) Psychotherap [id number] SNOMED-CT () 2019-06-03 complete Mental y, 45 04 d Health- minutes with [place] patient [address], [id number] Psychotherap [id number] SNOMED-CT () 2019-03-02 complete Mental y, 45 04 d Health- minutes with [place] patient [address], [id number] Psychotherap [id number] SNOMED-CT () 2019-03-10 complete Mental y, 45 04 d Health- minutes with [place] patient [address], [id number] [id number] Psychotherap [id number] SNOMED-CT () 2018-12-16 complete Mental y, 45 04 d Health- minutes with [place] patient [address], [id number] Psychotherap [id number] SNOMED-CT () 2019-01-25 complete Mental y, 45 04 d Health- minutes with [place] patient [address], [id number] Psychotherap [id number] SNOMED-CT () 2019-04-12 complete Mental y, 45 04 d Health- minutes with [place] patient [address], [id number] Psychiatric [id number] SNOMED-CT () 2019-03-16 complete Mental diagnostic 85 d Health- evaluation [place] with medical [facility] services [address] [place] [address], [id number] Crisis [id number] SNOMED-CT () 2019-02-10 complete Mental intervention 9 d Health- mental [facility], [address] [place] [address], [id number] [id number] Office or [id number] SNOMED-CT () 2019-04-13 complete Mental other 7 d Health- outpatient [place] visit for [address], established [id number] patient, [id number] which requires at least 2 of these 3 [place] components: An expanded problem focused history; An expanded problem focused examination; Medical decision making of [facility] Office [place] [id number] SNOMED-CT () 2019-03-23 complete Mental other 7 d Health- outpatient [place] visit for [address], established [id number] patient, [phone] which requires at least 2 of these 3 [place] components: An expanded problem focused history; An expanded problem focused examination; Medical decision making of [facility] Office or [id number] SNOMED-CT () 2019-05-13 complete Mental other 6 d Health- outpatient [place] visit for [address], established [id number] patient, [id number] which requires at least 2 of these 3 [place] components: A problem focused history; A problem focused examination; Straightforw ana medical decision making. Counselin Office or [id number] SNOMED-CT () 2019-07-06 complete Mental other 6 d Health- outpatient [place] visit for [address], established [phone] patient, [id number] which requires at least 2 of these 3 [place] components: A problem focused history; A problem focused examination; Straightforw ana medical decision making. Counselin SNOMED-CT () 2019-07-30 complete Mental d Health- [address], [id number] SNOMED-CT () 2019-05-04 complete Mental d Health- [address], [id number] SNOMED-CT () 2019-04-05 complete Mental d Health- [address], [id number] SNOMED-CT () 2019-02-10 complete Mental d Health- [address], [id number] [id number] Encounters/Encounter Diagnoses Encounter Name Encounter Diagnosis Diagnosis Diagnosis Date of Service Code Code Name CodeSystem Diagnosis Delivery Location [facility] [id number] Recurrent SNOMED-CT 2019-08-05 Behavioral Established depressive Health patient 10 disorder, Clinic , , Minutes current , episode mild Vital Signs No Information Social History Element Description Description Start End Code CodeSystem AdditionalInfo Date Date SexAssignedAtBirth Male 1960-0 M AdministrativeGender 9-10 Hospital Discharge Instructions Reason For Referral Medical Equipment FDA Assessments
--- OUTSIDE RECORDS SUMMARY | 2019-08-31 18:28 | XMS REPORT ---
:1960 Author Organization [facility] Care Team Providers Name Role Phone Anant Esquivel Primary Care Physician Unavailable Allergies, Adverse Reactions, Alerts Allergy Code CodeSystem Reaction Severity Criticality Status Start Substance Date Moderate Medications Medication Medication Medication Start Stop Route Dose Status Fill Code CodeSystem Date Date Instructions lorazepam RxNorm 2019- oral 1 mg active for 30 6-14 08-29 tablet day(s) lorazepam RxNorm 2019- oral 1 mg completed for 30 - 05-11 tablet day(s) venlafaxine 766679 RxNorm 2019- oral 75 mg active for 30 -07 25- capsule,e day(s) xtended release 24hr lorazepam RxNorm 2019- oral 1 mg completed for 30 5-13 06-12 tablet day(s) bupropion HCl 874580 RxNorm 2019- oral 150 mg active for 30 7- 10-07 tablet day(s) extended release 24 hr lorazepam RxNorm 2019- oral 1 mg completed for 30 3-13 04-11 tablet day(s) hydroxyzine 634028 RxNorm 2019- oral 50 mg active for 30 HCl 3-13 10-07 tablet day(s) bupropion HCl 013395 RxNorm 2019- oral 150 mg completed for 30 3-13 07-09 tablet day(s) extended release 24 hr gabapentin 725654 RxNorm 2019- oral 300 mg active for 30 -03 24-07 capsule day(s) Problems Problem Name Code CodeSystem Alternate Alternate Start End Status Narrative Code CodeSystem Date Date Recurrent 38889196 SNOMED-CT 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, current episode mild Post-traumatic [id number] SNOMED-CT Active stress 3-29 disorder, unspecified Alcohol [id number] SNOMED-CT 2019-0 Active dependence, 3-29 uncomplicated Relevant diagnostic tests/laboratory data Narrative No Information Procedures Procedure Code CodeSystem Target Date of Status Service Device Device Device Name Site Procedure Delivery Code Name UID Location Psychotherap [id number] SNOMED-CT () 2019-03-23 complete Mental y, 45 88 d Health- minutes with Autumn patient when [address] with an [facility], and [facility], service [id number] (List [id number] separately in addition to the code for primary procedure) Psychotherap [id number] SNOMED-CT () 2019-04-13 complete Mental y, 30 87 d Health- minutes with [place] patient when [facility] performed [address] [place] [address] with an [facility], and [facility], service [phone] (List [id number] separately in addition to the code for primary procedure) Psychotherap [id number] SNOMED-CT () 2019-06-03 complete Mental y, 45 04 d Health- minutes with [place]umn patient [address], [id number] [id number] Psychotherap [id number] SNOMED-CT () 2019-03-02 complete Mental y, 45 04 d Health- minutes with [place]umn patient [address], [id number] Psychotherap [id number] SNOMED-CT () 2019-03-10 complete Mental y, 45 04 d Health- minutes with [place]on patient [address], [id number] [id number] Psychotherap [id number] SNOMED-CT () 2018-12-16 complete Mental y, 45 04 d Health- minutes with [place]umn patient [address], [id number] [phone] Psychotherap [id number] SNOMED-CT () 2019-01-25 complete Mental y, 45 04 d Health- minutes with [place]umn patient [address], [id number] [id number] Psychotherap [id number] SNOMED-CT () 2019-04-12 complete Mental y, 45 04 d Health- minutes with [place]akon patient [address], [id number] [id number] Psychiatric [id number] SNOMED-CT () 2019-03-16 complete Mental diagnostic 85 d Health- evaluation Autumn with medical [facility] services [address] [place], [place], [id number] Crisis [id number] SNOMED-CT () 2019-02-10 complete Mental intervention 9 d Health- mental [facility], [address] [place], [place], [id number] [id number] Office or [id number] SNOMED-CT () 2019-04-13 complete Mental other 7 d Health- outpatient Autumn visit for [address], established [id number] patient, [id number] which requires at least 2 of these 3 whitlock components: An expanded problem focused history; An expanded problem focused examination; Medical decision making of [facility] Office or [id number] SNOMED-CT () 2019-03-23 complete Mental other 7 d Health- outpatient Autumn visit for [address], established [id number] patient, [id number] which requires at least 2 of these 3 whitlock components: An expanded problem focused history; An expanded problem focused examination; Medical decision making of [facility] Office or [id number] SNOMED-CT () 2019-05-13 complete Mental other 6 d Health- outpatient Haakon visit for [address], established [id number] patient, [phone] which requires at least 2 of these 3 whitlock components: A problem focused history; A problem focused examination; Straight[place] ana medical decision making. Counselin Office or [id number] SNOMED-CT () 2019-07-06 complete Mental other 6 d Health- outpatient Haakon visit for [address], established [id number] patient, [phone] which requires at least 2 of these 3 whitlock components: A problem focused history; A problem focused examination; [place]ight[place] ana medical decision making. Counselin Office or [id number] SNOMED-CT () 2019-08-05 complete Mental other 6 d Health- outpatient Haakon visit for [address], established [id number] patient, [phone] which requires at least 2 of these 3 whitlock components: A problem focused history; A problem focused examination; Straightforw ana medical decision making. Counselin SNOMED-CT () 2019-07-30 complete Mental d [address], [id number] [id number] SNOMED-CT () 2019-05-04 complete Mental d [address], [id number] [id number] SNOMED-CT () 2019-04-05 [facility] Mental d [address], [id number] [phone] SNOMED-CT () 2019-02-10 [facility] Mental [address], [id number] [phone] Encounters/Encounter Diagnoses Encounter Encounter Diagnosis Diagnosis Diagnosis Date of Service Name Code Code Name CodeSystem Diagnosis Delivery Location Non-Billable 91790 [id number] Recurrent SNOMED-CT 2019-08-11 Behavioral depressive Health disorder, Clinic , , current , episode mild Vital Signs No Information Social History Element Description Description Start End Code CodeSystem AdditionalInfo Date Date SexAssignedAtBirth Male 1960-0 M AdministrativeGender 9-10 Hospital Discharge Instructions Reason For Referral Medical Equipment FDA Assessments
[2019-08-31 19:05] VITALS: BP 116/80
== END 2019-08-31 19:03 | disposition home or self-care (01) ==
LOC: ED 17:29
DX: M25.512 Pain in left shoulder (principal); E11.9 Type 2 diabetes mellitus without complications; I25.2 Old myocardial infarction; J44.9 Chronic obstructive pulmonary disease, unspecified; K21.9 Gastro-esophageal reflux disease without esophagitis; F41.9 Anxiety disorder, unspecified; F32.9 Major depressive disorder, single episode, unspecified; Z91.81 History of falling; F43.10 Post-traumatic stress disorder, unspecified; F17.210 Nicotine dependence, cigarettes, uncomplicated; Z88.2 Allergy status to sulfonamides; Z87.442 Personal history of urinary calculi
CPT/HCPCS: 99281; A9270-GY

== ENCOUNTER 2019-11-03 10:46 | Inpatient (IN) | payer MEDICARE, MEDICAID ==
[2019-11-03] MEDS ORDERED: Ondansetron ODT TAB* 4 MG ONE (10:49)
[2019-11-03] MEDS ORDERED: Lorazepam PYXIS KEY PRN ×2 (10:52→12:40)
[2019-11-03] MEDS ORDERED: NS 0.9% 1000 ML** 1,000 ML IV ONE ×2 (10:52→11:54)
[2019-11-03] MEDS ORDERED: LORazepam INJ* 2 MG/ML 1 ML VIAL IV PUSH ONE ×2 (10:52→12:40)
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
[2019-11-03] MEDS ORDERED: Ondansetron ODT TAB* 4 MG PO ONE (11:02)
[2019-11-03 11:10] LABS: ABS Lymphocytes 1.1 10^3/ul (1.0-4.8); ABS Monocytes 0.4 10^3/ul (0-0.8); ABS Neutrophils 3.4 10^3/ul (1.5-7.7); Eosinophil % 0.8 %; Hematocrit 44 % (42-52); Hemoglobin 15.5 g/dL (14.0-18.0); Lymphocyte % 22.5 %; Mean Corpuscular HGB Conc 35 g/dL (31-36); Mean Corpuscular Hemoglobin 32 pg (27-31); Mean Corpuscular Volume 93 fL (80-94); Mean Platelet Volume 7.7 fL (7.4-10.4); Nucleated Red Blood Cells % 0.3; Platelet Count 152 10^3/uL (150-450); Red Blood Count 4.79 10^6 /uL (4.18-5.48); Red Cell Distribution Width 15 % (10-15)
[2019-11-03 11:21] LABS: INR 1.34 (0.82-1.09)
--- OUTSIDE RECORDS SUMMARY | 2019-11-03 11:22 | XMS REPORT ---
:1960 Author Organization [facility] Care Team Providers Name Role Phone Anant Esquivel Primary Care Physician Unavailable Allergies, Adverse Reactions, Alerts Allergy Code CodeSystem Reaction Severity Criticality Status Start Substance Date Moderate Medications Medication Medication Medication Start Stop Route Dose Status Fill Code CodeSystem Date Date Instructions hydroxyzine 624608 RxNorm 2018-09 2019- oral 50 mg completed for 17 HCl 2- 12-10 tablet day(s) venlafaxine 120587 RxNorm 2019- oral 75 mg completed for 30 - 10-07 capsule,e day(s) xtended release 24hr lorazepam RxNorm 2019- oral 0.5 mg completed for 30 8-29 08-29 tablet day(s) lorazepam RxNorm 2019- oral 1 mg completed for 30 3-13 04-11 tablet day(s) lorazepam RxNorm 2019- oral 1 mg completed for 30 6-14 08-29 tablet day(s) bupropion HCl 781757 RxNorm 2019- oral 150 mg completed for 30 7- 10-07 tablet day(s) extended release 24 hr bupropion HCl 169860 RxNorm oral 150 mg active for 30 6-18 tablet day(s) extended release 24 hr Vistaril 369150 RxNorm 2018-09 2019- oral 50 mg completed for 15 1-08 11-23 capsule day(s) lorazepam 717321 RxNorm 2019- oral 1 mg completed for 30 4-11 05-11 tablet day(s) bupropion HCl 038428 RxNorm 2019- oral 150 mg completed for 30 3-13 07-09 tablet day(s) extended release 24 hr lorazepam RxNorm 2019- oral 1 mg completed for 30 5-13 06-12 tablet day(s) gabapentin 215615 RxNorm 2019- oral 300 mg active for 30 8-19 capsule day(s) venlafaxine 313138 RxNorm oral 75 mg active for 30 7-09 capsule,e day(s) xtended release 24hr lorazepam RxNorm 2019- oral 0.5 mg completed for 14 8-29 10-22 tablet day(s) hydroxyzine 058162 RxNorm 2019- oral 50 mg completed for 30 HCl 3-13 10-07 tablet day(s) lorazepam RxNorm 2018-09 2019- oral 0.5 mg completed for 14 0-10 10-22 tablet day(s) gabapentin 557344 RxNorm 2019- oral 300 mg completed for 30 1-07 10-07 capsule day(s) lorazepam RxNorm 2019- oral 0.5 mg completed for 30 8-29 09-28 tablet day(s) hydroxyzine 388359 RxNorm 2018-09 oral 50 mg 1 active Take 1 tablet HCl 2-10 tablet by mouth once once a a day as day needed for 14 day(s) lorazepam RxNorm 2018-09 2019- oral 0.5 mg active for 7 0-22 12-27 tablet day(s) Problems Problem Name Code CodeSystem Alternate Alternate Start End Status Narrative Code CodeSystem Date Date Recurrent 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-CT 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, current episode mild Post-traumatic [id number] SNOMED-CT Active stress 3-29 disorder, unspecified Alcohol 60554240 SNOMED-CT Active dependence, 3-29 uncomplicated Relevant diagnostic tests/laboratory data Narrative No Information Procedures Procedure Code CodeSystem Target Date of Status Service Device Device Device Name Site Procedure Delivery Code Name UID Location Psychiatric [id number] SNOMED-CT () 2019-03-16 complete Mental diagnostic 85 d Health- evaluation [place] with [facility] services [address] [place] [address], [id number] [phone] Psychotherap [id number] SNOMED-CT () 2019-04-13 complete Mental y, 30 87 d Health- minutes with [place] patient when [facility] performed [address] [place] [address] with an [facility] and [facility], service [phone] (List [id number] separately in addition to the code for primary procedure) Psychotherap [id number] SNOMED-CT () 2019-03-23 complete Mental y, 45 88 d Health- minutes with [address] with an [facility], and [facility], service [id number] (List [id number] separately in addition to the code for primary procedure) SNOMED-CT () 2019-04-05 complete Mental d Health[address], [id number] [phone] SNOMED-CT () 2019-02-10 complete Mental d Health- [address], [id number] [id number] Crisis [id number] SNOMED-CT () 2019-02-10 complete Mental intervention 9 d Health- mental [facility], [address] [place] [address], [id number] [phone] SNOMED-CT () 2019-07-30 complete Mental d Health[address], [id number] [id number] SNOMED-CT () 2019-08-20 complete Mental d Health- [address], [id number] [phone] Psychotherap [id number] SNOMED-CT () 2019-08-26 complete Mental y, 45 04 d Health- minutes with [address], [id number] [phone] Psychotherap [id number] SNOMED-CT () 2019-06-03 complete Mental y, 45 04 d Health- minutes with [address], [id number] [phone] Psychotherap [id number] SNOMED-CT () 2019-03-02 complete Mental y, 45 04 d Health- minutes with [address], [id number] [phone] Psychotherap [id number] SNOMED-CT () 2019-03-10 complete Mental y, 45 04 d Health- minutes with [address], [id number] [id number] Psychotherap [id number] SNOMED-CT () 2018-12-16 complete Mental y, 45 04 d Health- minutes with [place] patient [address], [id number] [phone] Psychotherap [id number] SNOMED-CT () 2019-01-25 complete Mental y, 45 04 d Health- minutes with [place] patient [address], [id number] [phone] Psychotherap [id number] SNOMED-CT () 2019-04-12 complete Mental y, 45 04 d Health- minutes with [place] patient [address], [id number] [phone] Office or [id number] SNOMED-CT () 2019-04-13 complete Mental other 7 d Health- outpatient [place] visit for [address], established [id number] patient, [phone] which requires at least 2 of these 3 whitlock components: An expanded problem focused history; An expanded problem focused examination; Medical decision making of [facility] Office or [id number] SNOMED-CT () 2019-03-23 complete Mental other 7 d Health- outpatient [place] visit for [address], established [id number] patient, [phone] which requires at least 2 of these 3 whitlock components: An expanded problem focused history; An expanded problem focused examination; Medical decision making of low SNOMED-CT () 2019-05-04 complete Mental d Health- [place] [address], [id number] [phone] Office or [id number] SNOMED-CT () 2019-05-13 complete Mental other 6 d Health- outpatient [place] visit for [address], established [id number] patient, [phone] which requires at least 2 of these 3 whitlock components: A problem focused history; A problem focused examination; [place]ight[place] medical decision making. Counselin Office or [id number] SNOMED-CT () 2019-07-06 complete Mental other 6 d Health- outpatient [place] visit for [address], established [id number] patient, [phone] which requires at least 2 of these 3 whitlock components: A problem focused history; A problem focused examination; [place]ight[place] ana medical decision making. Counselin Office or [id number] SNOMED-CT () 2019-09-16 complete Mental other 6 d Health- outpatient [place] visit for [address], established [id number] patient, [phone] which requires at least 2 of these 3 whitlock components: A problem focused history; A problem focused examination; [place]ight[place]w ana medical decision making. Counselin Office or [id number] SNOMED-CT () 2019-08-05 complete Mental other 6 d Health- outpatient [place] visit for [address] [id number] patient, [phone] which requires at least 2 of these 3 whitlock components: A problem focused history; A problem focused examination; Straightforw ana medical decision making. Counselin Encounters/Encounter Diagnoses Encounter Encounter Diagnosis Diagnosis Diagnosis Date of Service Name Code Code Name CodeSystem Diagnosis Delivery Location Non-Billable [id number] Recurrent SNOMED-CT 2019-09-20 Behavioral depressive Health disorder, Clinic , , current , episode mild Vital Signs No Information Social History Element Description Description Start End Code CodeSystem AdditionalInfo Date Date SexAssignedAtBirth Male 1960-0 M AdministrativeGender 9-10 Hospital Discharge Instructions Reason For Referral Medical Equipment FDA Assessments
--- OUTSIDE RECORDS SUMMARY | 2019-11-03 11:22 | XMS REPORT ---
:1960 Author Organization [facility] Care Team Providers Name Role Phone ESEQUIEL STILES Primary Care Physician Unavailable Allergies, Adverse Reactions, Alerts Allergy Code CodeSystem Reaction Severity Criticality Status Start Substance Date Moderate Medications Medication Medication Medication Start Stop Route Dose Status Fill Code CodeSystem Date Date Instructions lorazepam RxNorm 2019- oral 1 mg completed for 30 6-14 08-29 tablet day(s) bupropion HCl 843569 RxNorm 2019- oral 150 mg completed for 30 7- 10-07 tablet day(s) extended release 24 hr bupropion HCl 790400 RxNorm 2019 oral 150 mg active for 30 6-18 tablet day(s) extended release 24 hr lorazepam RxNorm 2019- oral 0.5 mg completed for 30 8-29 08-29 tablet day(s) lorazepam 486926 RxNorm 2019 2019- oral 0.5 mg completed for 14 8-29 10-22 tablet day(s) lorazepam 317863 RxNorm 2019- oral 1 mg completed for 30 5-13 06-12 tablet day(s) gabapentin 959170 RxNorm 2019- oral 300 mg active for 30 8-19 capsule day(s) venlafaxine 737815 RxNorm 2019 oral 75 mg active for 30 7-09 capsule,e day(s) xtended release 24hr lorazepam RxNorm 2018-09 2019- oral 0.5 mg completed for 14 0-10 10-22 tablet day(s) Vistaril 851443 RxNorm 2018-09 2019- oral 50 mg completed for 15 1-08 11-23 capsule day(s) hydroxyzine 279822 RxNorm 2019 2019- oral 50 mg completed for 30 HCl 3-13 10-07 tablet day(s) hydroxyzine 102637 RxNorm 2018-09 2019- oral 50 mg completed for 17 HCl 2-06 12-10 tablet day(s) lorazepam RxNorm 2018-09 2019- oral 0.5 mg active for 7 0- 12-27 tablet day(s) hydroxyzine 284604 RxNorm 2018-09 oral 50 mg 1 active Take 1 tablet HCl 2-10 tablet by mouth once once a a day as day needed for 14 day(s) lorazepam RxNorm 2019- oral 1 mg completed for 30 3- 04-11 tablet day(s) lorazepam RxNorm 2019- oral 0.5 mg completed for 30 8 09-28 tablet day(s) venlafaxine 868725 RxNorm 2019- oral 75 mg completed for 30 09-25- capsule,e day(s) xtended release 24hr lorazepam RxNorm 2019- oral 1 mg completed for 30 4- 05-11 tablet day(s) gabapentin 486664 RxNorm 2019- oral 300 mg completed for 30 09-21- capsule day(s) bupropion HCl 027213 RxNorm 2019- oral 150 mg completed for 30 3- 07-09 tablet day(s) extended release 24 hr Problems Problem Name Code CodeSystem Alternate Alternate Start End Status Narrative Code CodeSystem Date Date Post-traumatic [id number] SNOMED-CT Active stress 3-29 disorder, unspecified 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-CT 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, current episode mild Alcohol 40241658 SNOMED-CT Active dependence, 3-29 uncomplicated Relevant diagnostic tests/laboratory data Narrative No Information Procedures Procedure Code CodeSystem Target Date of Status Service Device Device Device Name Site Procedure Delivery Code Name UID Location Psychiatric [id number] SNOMED-CT () 2019-03-16 complete Mental diagnostic 85 d Health- evaluation [place] with [facility] services [address] [place], [place], [phone] Psychotherap [id number] SNOMED-CT () 2019-04-13 complete Mental y, 30 87 d Health- minutes with [place] patient when [facility] performed [address] [place] [address] with an [facility] and [facility]note 3], service [id number] (List [id number] separately in addition to the code for primary procedure) Psychotherap [id number] SNOMED-CT () 2019-03-23 complete Mental y, 45 88 d Health- minutes with [address] with an [facility], and [facility][note 3], service [id number] (List [id number] separately in addition to the code for primary procedure) SNOMED-CT () 2019-04-05 complete Mental d Health[address], [id number] [id number] SNOMED-CT () 2019-02-10 complete Mental d Health- [address], [id number] [phone] Crisis [id number] SNOMED-CT () 2019-02-10 complete Mental intervention 9 d Health- mental [facility], [address] [place] [address], [id number] [phone] SNOMED-CT () 2019-07-30 complete Mental d Health[address], [id number] [phone] SNOMED-CT () 2019-08-20 complete Mental d Health- [address], [phone] Psychotherap [id number] SNOMED-CT () 2019-08-26 complete Mental y, 45 04 d Health- minutes with [address], [id number] [phone] Psychotherap [id number] SNOMED-CT () 2019-06-03 complete Mental y, 45 04 d Health- minutes with [address], [id number] [phone] Psychotherap [id number] SNOMED-CT () 2019-03-02 complete Mental y, 45 04 d Health- minutes with [address], [id number] [phone] Psychotherap [id number] SNOMED-CT () 2019-03-10 complete Mental y, 45 04 d Health- minutes with [address], [id number] [phone] Psychotherap [id number] SNOMED-CT () 2018-12-16 complete Mental y, 45 04 d Health- minutes with [place] patient [address], [phone] [phone] Psychotherap [id number] SNOMED-CT () 2019-01-25 complete Mental y, 45 04 d Health- minutes with [place] patient [address], [id number] [phone] Psychotherap [id number] SNOMED-CT () 2019-04-12 complete Mental y, 45 04 d Health- minutes with [place] patient [address], [id number] [phone] Psychotherap [id number] SNOMED-CT () 2019-09-30 complete Mental y, 45 04 d Health- minutes with [place] patient [address], [id number] [phone] Office or [id number] SNOMED-CT () 2019-04-13 complete Mental other 7 d Health- outpatient [place] visit for [address], established [id number] patient, [phone] which requires at least 2 of these 3 whitlock components: An expanded problem focused history; An expanded problem focused examination; Medical decision making of low Office or [id number] SNOMED-CT () 2019-03-23 complete Mental other 7 d Health- outpatient [place] visit for [address], established [id number] patient, [phone] which requires at least 2 of these 3 whitlock components: An expanded problem focused history; An expanded problem focused examination; Medical decision making of low SNOMED-CT () 2019-05-04 complete Mental d Health- [place] [address], [phone] [phone] Office or [id number] SNOMED-CT () 2019-05-13 complete Mental other 6 d Health- outpatient [place] visit for [address], established [id number] patient, [phone] which requires at least 2 of these 3 whitlock components: A problem focused history; A problem focused examination; Straightforw ana medical decision making. Counselin Office or [id number] SNOMED-CT () 2019-07-06 complete Mental other 6 d Health- outpatient [place] visit for [address], established [id number] patient, [phone] which requires at least 2 of these 3 whitlock components: A problem focused history; A problem focused examination; Straightforw ana medical decision making. Counselin Office or [id number] SNOMED-CT () 2019-09-16 complete Mental other 6 d Health- outpatient [place] visit for [address], established [id number] patient, [phone] which requires at least 2 of these 3 whitlock components: A problem focused history; A problem focused examination; Straightforw ana medical decision making. Counselin Office or [id number] SNOMED-CT () 2019-08-05 complete Mental other 6 d Health- outpatient [place] visit for [address], established [id number] patient, [phone] which requires at least 2 of these 3 whitlock components: A problem focused history; A problem focused examination; Straightforw ana medical decision making. Counselin Encounters/Encounter Diagnoses Encounter Encounter Diagnosis Diagnosis Diagnosis Date of Service Name Code Code Name CodeSystem Diagnosis Delivery Location Non-Billable [id number] Recurrent SNOMED-CT 2019-10-07 Behavioral depressive Health disorder, Clinic , , current , episode mild Vital Signs No Information Social History Element Description Description Start End Code CodeSystem AdditionalInfo Date Date SexAssignedAtBirth Male 1960-1 M AdministrativeGender 9-10 Hospital Discharge Instructions Reason For Referral Medical Equipment FDA Assessments
--- OUTSIDE RECORDS SUMMARY | 2019-11-03 11:22 | XMS REPORT | Continuity of Care Document ---
:1960 External Reference #:[id number] Author Name Sandee Jovel MD (transmitted by agent of provider Myah Ribeiro) Address [address] , [place] [address] Care Team Providers Name Role Phone Jigna Cuello M.D. 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 Problems Active Problems Provider Date Benign essential hypertension Raciel Rm M.D., [facility], [facility] Onset: 2013 Chronic ischemic heart disease Raciel Rm M.D., [facility], [facility] Onset: 2013 Chest pain Raciel Rm M.D., [facility], [facility] Onset: 10/12/2013 Hyperlipidemia Raciel Rm M.D., [facility], [facility] Onset: 10/12/2013 Multi vessel coronary [...] Description Comments Sex Unknown ETOH Use 07/06/2019 Has consumed alcohol Multiple relapses, in the past last one May 2019 ETOH Use none at the present time 09/13/19 Recreational Drug Use Denies Drug Use Tobacco Use Start: Unknown Light tobacco smoker (10 or fewer cigarettes/day) Recreational Drug Use Former Drug User Smoking Status Reviewed: 09/22/19 Light tobacco smoker (10 or fewer cigarettes/day) Exercise Type/Frequency Exercises regularly Exercise Type/Frequency Walks 5 times a week 5 mile a day and gym Allergies, Adverse Reactions, Alerts Active Allergies Reaction Severity Comments Date Donepezil nightmares, hallucinations Severe 10/12/2013 Acamprosate Calcium Contact dermatitis 07/23/2018 Inactive Allergies NKDA 01/03/2011 Medications Active Medications SIG Qnty Indications Ordering Date Provider Jardiance 1 by mouth every 30tabs R19.7 Sandee Jovel, 05/06/2019 25mg Tablets day Nicotine Polacrilex Week 1-6 take 1 72units [...] I25.10 Yasmine Stevenson, 08/11/2018 5mg Tablets day 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 Lorazepam 1 by mouth twice 45tabs Jigna Cuello MD 07/28/2018 1mg Tablets a day as needed for anxiety or isomnia Cpap Mask And Supplies use as directed 1units G47.33 Jigna Cuello MD 07/23 Device Myrbetriq one po daily Unknown 50mg Tablets ER 24HR Venlafaxine HCL ER 1 by mouth every 30capoliver Cuello MD 75mg day Caps ER 24HR [...] Low Dose 1 by mouth every 90units Sandee Jovel, 81mg day Chewt[place]amela Metoprolol Succinate 1.5 tablets by 135tabs Yasmine Stevenson, ER mouth every day 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 25mg Tablets ER 24HR Nitrostat one sl q5min up QS Unknown 0.4mg Tablets to 3 doses prn Sub History Medications Disulfiram one po daily 30tabs F10.10 Jigna Cuello MD 07/06/2019 - 500mg 07/06/2019 Tablets Disulfiram one po daily (pt 30tabs F10.10 Jigna Cuello MD 07/06/2019 - 250mg not taking) 09/21/2019 Tablets Steglatro 1 by mouth every 30tabs R19.7 Jigna Cuello MD 05/04/2019 - 15mg day 05/06/2019 Tablets Sildenafil Citrate one tablet by mouth 10tabs F52.21 Jigna Cuello MD 05/04 - one hour before 09/21/2019 50mg Tablets intercourse Medications Administered in Office Medication SIG Qnty Indications Ordering Provider Date Technetium TC 99M Jeb Gerardo DO [facility] 08/04/2018 Tetrofosmin, Per Unit Dose Up To 40 Millicuries Injection Immunizations CPT Code Status Date Vaccine Lot # [id number] Given 09/22/2019 Pneumonia Vaccine [id number] Vital Signs Date Vital Result Comment 09/22/2019 1:49pm Height 67 inches 5'7" Weight 202.00 lb Heart Rate 107 /min BP Systolic 132 mmHg BP Diastolic 80 mmHg Body Temperature 97.6 F O2 % BldC Oximetry 96 % BMI (Body Mass Index) 31.6 kg/m2 09/14/2019 11:23am Height 67 inches 5'7" Weight 195.00 lb Heart Rate 73 /min BP Systolic Sitting 125 mmHg BP Diastolic Sitting 81 mmHg BMI (Body Mass Index) 30.5 kg/m2 Results Test Acquired Date Facility Test Result H/L Range Note Laboratory test 09/22/2019 [facility] Hemoglobin A1c 7.0 5-7 finding Laboratory test 07/06/2019 [facility] Hemoglobin A1c 7.5 High 5-7 finding Laboratory test 06/25/2019 [facility] Point of Care 121 mg/dL High 70-100 [address] [place] [address] [phone] Laboratory test 06/25/2019 [facility] Surgical SEE RESULT [address] [place] [address] Order [phone] Laboratory test 06/21/2019 [facility] PSA Diagnostic 1.935 Normal 0-4.0 [address] ng/mL [place], [place] [id number] [phone] Laboratory test 04/29/2019 [facility] Point of Care 283 mg/dL High 70-100 [address] [place] [address] [phone] Laboratory test 04/29/2019 [facility] Point of Care 181 mg/dL High 70-100 [address] [place] [address] [phone] CBC Auto Diff 04/29/2019 [facility] White Blood 7.5 Normal 3.5 -10.[address] Count 10^3/[place] [address] [phone] Red Blood Count 4.49 10^6/uL Normal 4.18-5.48 [...] Nucleated Red Blood Cells % 0.2 Urine Drug 04/29/2019 [facility] Urine None Detected None Detect SCR ED & [address] [facility] [place] [address] Screen [phone] Urine Barbiturates Screen None Detected None Detect Urine Benzodiazepine Screen None Detected None Detect Urine Cannabinoids Screen Presumptive Posi <SEE NOTE> Abnormal None Detect 6 Urine Cocaine Screen None Detected None Detect Urine Opiates Screen None Detected None Detect Urine Phencyclidine Screen None Detected None Detect 7 Comp Metabolic Panel 04/29/2019 [facility] Sodium 130 mmol/L Low 135-145 [address] [place] [address] [phone] Potassium 3.8 mmol/L Normal 3.5-5.0 Chloride 95 [...] Egfr Non- 58.8 >60 Egfr 71.1 >60 8 Laboratory test finding 04/29/2019 [facility] Alcohol 294 mg/dL High <10 [address] [place], [place] [address] [phone] Acetaminophen < 15 g/mL 9 Salicylate < 2.50 mg/dL <30 TSH (Thyroid Stim Horm) 5.02 mcIU/mL Normal 0.34-5.60 Urinalysis Profile 04/29/2019 [facility] Urine Color Yellow [address] [place] [address] [phone] Urine Appearance Clear Urine Specific [place] 1.013 Normal 1.010-1.030 Urine pH 6.0 Normal 5-9 Urine Urobilinogen Negative Negative Urine Ketones Negative Negative Urine Protein Negative Negative Urine Leukocytes Negative Negative Urine Blood Negative Negative Urine Nitrite Negative Negative Urine Bilirubin Negative Negative Urine Glucose 1+(50 mg/dL) Abnormal Negative Inr/Protime 04/24/2019 [facility] Inr 1.33 High 0.82-1.[address] [place] [address] [phone] CBC Auto Diff 04/24/2019 [facility] White Blood 5.9 Normal 3.5 -10.[address] Count 10^3/[place] [address] [phone] Red Blood Count 4.55 10^6/uL Normal 4.18-5.48 [...] Blood Cells % 0.2 Comp Metabolic Panel 04/24/2019 [facility] Sodium 133 mmol/L Low 135-[address] [place] [address] [phone] Chloride 95 mmol/L Low 101-111 Co2 Carbon [...] High 2-11 Ast 205 U/L High 13-39 Laboratory test finding 04/24/2019 [facility] Alcohol 347 mg/dL High <10 [address] [place] [address] [phone] 1 [employer] Supervisor: [id number] 2 SEE RESULT BELOW Name: SIM CHUN : [address]: Patricia Fontana MD Acct: [id number] Unit: [id number] AGE: 59 Location: ENDO Re06/25/19 SEX: M Status: DEP REF SPEC: [id number] AYLA: 06/25/19- SUBM DR: Patricia Glover MD REQ: [id number] RECD: 06/25/192279 STATUS: DEJA AGARWAL DR: Jigna Cuello MD [...] CONTINUED ON NEXT PAGE DEPARTMENT OF PATHOLOGY, [address] [place] [address] Tommie Grajeda M.D. Director [facility] # [id number] CLINICAL HISTORY History of polyps POST-OPERATIVE DIAGNOSIS [...] CONTINUED ON NEXT PAGE DEPARTMENT OF PATHOLOGY, [address] [place] [address] Tommie Grajeda M.D. Director [facility] # [id number] Signed by and Reported on: Tommie Grajeda MD 1211 END OF REPORT DEPARTMENT OF PATHOLOGY, [address] [place] [address] Tommie Grajeda M.D. Director [facility] # [id number] 3 Serum levels of PSA measured using the [employer] DXI Hybritech immunoassay should not be interpreted as absolute evidence of the presence or absence of disease. The PSA value should be used in conjunction with other pertinent clinical diagnostic procedures. The values obtained with different assay methods or kits cannot be used interchangeably. 4 [employer] Ware[employer] Supervisor: [id number] 5 [employer] Warehouse Supervisor: [id number] 6 Presumptive Positive Presumptive positive results are unconfirmed. 7 The urine specimen was tested at the listed cutoffs: Drug class test level (ng/mL) Amphetamines 500 Barbiturates 200 Benzodiazepine metabolites 200 Cocaine metabolites 150 Cannabinoids 50 Opiates 300 Pcp 25 Specimen was received without chain of custody. Results should be used for medical purposes only. 8 Because ethnic data is not always readily [...] 15-29 5 Kidney failure <15 (or dialysis) 9 Therapeutic concentration: <50 ug/mL Toxic concentration: >120 ug/mL 10 Standard intensity warfarin therapeutic range: 2.0-3.0 [...] 15-29 5 Kidney failure <15 (or dialysis) Procedures Date Code Description Status 09/13/2019 37476 EKG Tracing & Interpretation Completed 06/25/2019 [id number] Colonoscopy Completed 12/03/2018 [id number] Diabetic Retinal Eye Exam Completed 08/18/2018 [id number] Diabetic Foot Exam Completed 08/05/2018 [id number] Diabetic Retinal Eye Exam Completed 02/22/2000 [id number] Diabetic Retinal Eye Exam Completed Medical Devices Description No Information Available Encounters Type Date Location Provider Dx Diagnosis Office Visit 09/14/2019 [facility] Internal Sandee Jovel, W00.9xxA Unspecified fall 11:30a Medicine - Ccmob MD due to ice and snow, initial encounter E11.9 Type 2 diabetes mellitus without complications S49.92xA Unsp injury of left shoulder and upper arm, init encntr Office Visit 09/13/2019 1:20p [facility] Yasmine Stevenosn, I10 Essential (primary) 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 hypertension F10.10 Alcohol abuse, uncomplicated I25.10 Athscl heart disease of [place] coronary artery w/o ang pctrs E78.5 Hyperlipidemia, unspecified R00.0 Tachycardia, unspecified Office Visit 07/06/2019 11:40a [facility] Internal Jigna Cuello, E11.9 Type 2 diabetes Medicine - mellitus without Ccmob complications I10 Essential (primary) hypertension F10.10 Alcohol abuse, uncomplicated Z23 Encounter for immunization Office Visit 06/04/2019 1:30p [facility] Leroy R20.2 Paresthesia of [facility] Rena Arriola skin R25.1 Tremor, unspecified Z86.73 Prsnl hx of TIA (TIA), and cereb infrc w/o resid deficits F32.9 Major depressive disorder, single episode, unspecified G62.9 Polyneuropathy, unspecified Office Visit 05/04/2019 10:40a [facility] Internal Jigna Cuello, S20.212D [facility] subsequent encounter F52.21 Male erectile disorder R19.7 Diarrhea, unspecified E11.9 Type 2 diabetes mellitus without complications Office Visit 04/12/2019 Katya Elizabeth G62.9 Polyneuropathy, 11:00a Neurologic Elizabeth Sutton unspecified [facility] F32.9 Major depressive disorder, single episode, unspecified Z86.73 Prsnl hx of TIA (TIA), and cereb infrc w/o resid deficits R25.1 Tremor, unspecified R20.2 Paresthesia of skin Assessments Date Code Description Provider 09/22/2019 E11.9 Type 2 diabetes mellitus without Sandee Jovel MD complications 09/22/2019 I10 Essential (primary) hypertension Sandee Jovel MD 09/22/2019 W00.9xxD Unspecified fall due to ice and snow, Sandee Jovel MD subsequent encounter 09/22/2019 Z23 Encounter for immunization Sandee Jovel MD 09/22/2019 F32.9 Major depressive disorder, single episode, Sandee Jovel MD unspecified 09/14/2019 W00.9xxA Unspecified fall due to ice and snow, Sandee Jovel MD initial encounter 09/14/2019 E11.9 Type 2 diabetes mellitus without Sandee Jovel MD complications 09/14/2019 S49.92xA Unspecified injury of left shoulder and Sandee Jovel MD upper arm, initial encounter 09/13/2019 I10 Essential (primary) hypertension Yasmine Stevenson NP 09/13/2019 F10.10 Alcohol abuse, uncomplicated Yasmine Stevenson NP 09/13/2019 I25.10 Atherosclerotic heart disease of [place] Yasmine Stevenson NP coronary artery with 09/13/2019 E78.5 Hyperlipidemia, unspecified Yasmine Stevenson NP 09/13/2019 R00.0 Tachycardia, unspecified Yasmine Stevenson NP 07/06/2019 E11.9 Type 2 diabetes mellitus without [...] 06/04/2019 F32.9 Major depressive disorder, single episode, Leroy Arriola , N.P. unspecified 06/04/2019 G62.9 Polyneuropathy, [...] R20.2 Paresthesia of skin Glenn Sutton M.D. Plan of Treatment Future Appointment(s):10/22/2019 1:30 pm - Nurse Visit [facility] at [place] Xghtoqrwox24/06/2020 3:00 pm - Nurse Visit cc at [place] Lntnnxqyvn75/08/2020 - Sandee Jovel MDE11.9 Type 2 diabetes mellitus without complicationsComments: f/u with Eye doctor for annual in November 2019- Dr Cabrales Hemoglobin A1c is less than 7.0% in ages 18-74Goal Hemoglobin A1c is between 7.0% and 8.0% in age over 75Goal Blood pressure is less than 130/85.Cholesterol should be lowered by a high or moderate-dose statin.Follow up:Need DAVID for [id number] Essential ( primary) hznjhmrtpcadV90.9xxD Unspecified fall due to ice and snow, subsequent fmgcdfiniF00 Encounter for frrozjxzixxiJ59.9 Major depressive disorder, single episode, unspecified Functional Status Description No Information Available Mental Status Description No Information Available Referrals Refer to Reason for Referral Status Appt Date [facility] [address] [place] [address] [phone]
--- OUTSIDE RECORDS SUMMARY | 2019-11-03 11:22 | XMS REPORT | Continuity of Care Document ---
:1960 External Reference #:[id number] Author Name Yasmine Stevenson NP (transmitted by agent of provider Jenise Chavarria) Address [address] [place] [address] Care Team Providers Name Role Phone Jigna Cuello M.D. 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 [phone] Problems Active Problems Provider Date Benign essential hypertension Raciel Rm M.D., [facility] Onset: 2013 Chronic ischemic heart disease Raciel Rm M.D., [facility] Onset: 2013 Chest pain Raciel Rm M.D., [facility] Onset: 10/12/2013 Hyperlipidemia Raciel Rm M.D., [facility] Onset: 10/12/2013 Multi vessel coronary artery disease [...] Use Former Drug User Smoking Status Reviewed: 09/13/19 Light tobacco smoker (10 or fewer cigarettes/day) Exercise Type/Frequency Exercises regularly Exercise Type/Frequency Walks 5 times a week 5 mile a day and gym Allergies, Adverse Reactions, Alerts Active Allergies Reaction Severity Comments Date Donepezil nightmares, hallucinations Severe 10/12/2013 Acamprosate Calcium Contact dermatitis 07/23/2018 Inactive Allergies NKDA 01/03/2011 Medications Active Medications SIG Qnty Indications Ordering Date Provider Disulfiram one po daily (pt 30tabs F10.10 Jigna Cuello MD 07/06/2019 250mg not taking) Tablets Jardiance 1 by mouth every 30tabs R19.7 Sandee 05/06/2019 25mg Tablets day MD Med Sildenafil Citrate one tablet by 10tabs F52.21 [...] I25.10 Yasmine Stevenson, 08/11/2018 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 day 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 Lorazepam 1 by mouth twice a 45tabs [...] Dose 1 by mouth every 90units Sandee 81mg day MD Med Chewtabs Metoprolol Succinate 1.5 tablets by 135tabs Yasmine Stevenson, ER mouth every day 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 25mg Tablets ER 24HR Nitrostat one [...] Date Technetium TC 99M Jeb Gerardo DO [facility] 08/04/2018 Tetrofosmin, Per Unit Dose Up To 40 Millicuries Injection Immunizations Description No Information Available Vital Signs Date Vital Result Comment 09/13/2019 1:20pm Height 67 inches 5'7" Weight 195.12 lb with shoes Heart Rate 96 /min irr, left radial BP Systolic Sitting 134 mmHg Lue, reg cuff BP Diastolic Sitting 86 mmHg Lue, reg cuff BMI (Body Mass Index) 30.6 kg/m2 Ejection Fraction 50% 09/03/2018 07/06/2019 11:16am Height 67 inches 5'7" Weight 195.00 lb Heart Rate 85 /min BP Systolic 132 mmHg BP Diastolic 85 mmHg O2 % BldC Oximetry 96 % BMI (Body Mass Index) 30.5 kg/m2 Results Test Acquired Date Facility Test Result H/L Range Note Laboratory test 07/06/2019 [facility] Hemoglobin A1c 7.5 High 5-7 finding Laboratory test 06/25/2019 [facility] Surgical SEE RESULT [address] [place] [address] [phone] Laboratory test 06/25/2019 [facility] Point of Care 121 mg/dL High 70-100 2 [place] [address] [phone] Laboratory test 06/21/2019 [facility] PSA Diagnostic 1.935 Normal 0-4.0 3 finding ng/[place] [address] [phone] Urinalysis 04/29/2019 [facility] Urine Color Yellow Profile [address] [place] [address] [phone] Urine Appearance Clear Urine Specific [place] 1.013 Normal 1.010-1.030 Urine pH 6.0 Normal 5-9 Urine Urobilinogen Negative Negative Urine Ketones Negative Negative Urine Protein Negative Negative Urine Leukocytes Negative Negative Urine Blood Negative Negative Urine Nitrite Negative Negative Urine Bilirubin Negative Negative Urine Glucose 1+(50 mg/dL) Abnormal Negative Laboratory test finding 04/29/2019 [facility] Alcohol 294 mg/dL High <10 [address] [place] [address] [phone] Acetaminophen < 15 g/mL 4 Salicylate < 2.50 mg/dL <30 TSH (Thyroid Stim Horm) 5.02 mcIU/mL Normal 0.34-5.60 Comp Metabolic Panel 04/29/2019 [facility] Sodium 130 mmol/L Low 135-145 [address] [place] [address] [phone] Potassium 3.8 mmol/L Normal 3.5-5.0 Chloride 95 [...] Egfr Non- 58.8 >60 Egfr 71.1 >60 5 Urine Drug 04/29/2019 [facility] Urine None Detected None Detect SCR ED & [address] [place] [address] Screen [phone] Urine Barbiturates Screen None Detected None Detect Urine Benzodiazepine Screen None Detected None Detect Urine Cannabinoids Screen Presumptive Posi <SEE NOTE> Abnormal None Detect 6 Urine Cocaine Screen None Detected None Detect Urine Opiates Screen None Detected None Detect Urine Phencyclidine Screen None Detected None Detect 7 CBC Auto 04/29/2019 [facility] White Blood 7.5 10^3/uL Normal 3.5-10.[address] [place] [address] [phone] Red Blood Count 4.49 10^6/uL Normal 4.18-5.48 [...] % Nucleated Red Blood Cells % 0.2 Laboratory test 04/29/2019 [facility] Point of 181 mg/dL High 70-100 [address] [place] [address] Glucose [phone] Laboratory test 04/29/2019 [facility] Point of 283 mg/dL High 70-[address] [place] [address] Glucose [phone] Inr/Protime 04/24/2019 [facility] Inr 1.33 High 0.82-1.[address] [place] [address] [phone] CBC Auto Diff 04/24/2019 [facility] White Blood 5.9 Normal 3.5 -10.[address] Count 10^3/uL [place], [place] [address] [phone] Red Blood Count 4.55 10^6/uL Normal 4.18-5.48 [...] Cells % 0.2 Comp Metabolic Panel 04/24/2019 [facility] Sodium 133 mmol/L Low 135-[address] [place] [address] [phone] Chloride 95 mmol/L Low 101-111 Co2 Carbon [...] Ast 205 U/L High 13-39 Laboratory test 04/24/2019 [facility] Alcohol 347 mg/dL High < [address] [place] [address] [phone] CBC Auto Diff 03/17/2019 [facility] White Blood 8.3 Normal 3.5 -10.[address] Count 10^3/[place] [address] [phone] Red Blood Count 4.15 10^6/uL Low 4.18-5.48 [...] Blood Cells % 0.1 Urine Drug 03/17/2019 [facility] Urine None Detected None Detect SCR ED & [address] [place] [address] Screen [phone] Urine Barbiturates Screen None Detected None Detect Urine Benzodiazepine Screen Presumptive Posi <SEE NOTE> Abnormal None Detect 12 Urine Cannabinoids Screen Presumptive Posi <SEE NOTE> Abnormal None Detect 13 Urine Cocaine Screen None Detected None Detect Urine Opiates Screen None Detected None Detect Urine Phencyclidine Screen None Detected None Detect 14 Urinalysis Profile 03/17/2019 [facility] Urine Color Gloria [address] [place] [address] [phone] Urine Appearance Cloudy Urine Specific [place] 1.021 Normal 1.010-1.030 Urine pH 5.0 Normal [...] Casts Present Abnormal Absent Comp Metabolic 03/17/2019 [facility] Sodium 137 mmol/L Normal 135-145 Panel [address] [place] [address] [phone] Potassium 3.2 mmol/L Low 3.5-5.0 Chloride 100 [...] Egfr Non- 79.5 >60 Egfr 96.2 >60 15 Laboratory test 03/17/2019 [facility] Acetaminophen < 15 g/mL [address] [place] [address] [phone] Alcohol 212 mg/dL High <10 Salicylate < 2.50 mg/dL <30 TSH (Thyroid Stim Horm) 5.71 mcIU/mL High 0.34-5.60 Urine Culture And 03/17/2019 [facility] Urine Culture SEE RESULT [address] [place] [address] [phone] 1 SEE RESULT BELOW Name: ASHLEEDIANNESIM : [address]: Patricia Fontana MD Acct: [id number] Unit: [id number] AGE: 59 Location: ENDO Re06/25/19 SEX: M Status: DEP REF SPEC: [id number] AYLA: 06/25/19- SUBM DR: Patricia Glover MD REQ: [id number] RECD: 06/25/19 STATUS: DEJA AGARWAL DR: Jigna [...] CONTINUED ON NEXT PAGE DEPARTMENT OF PATHOLOGY, [address] [place] [address] Tommie Grajeda M.D. Director [facility] # [id number] CLINICAL HISTORY History of polyps POST-OPERATIVE DIAGNOSIS [...] CONTINUED ON NEXT PAGE DEPARTMENT OF PATHOLOGY, [address] [place], [place] [id number] Tommie Grajeda M.D. Director [facility] # [id number] Signed by and Reported on: Tommie Grajeda MD 1211 END OF REPORT DEPARTMENT OF PATHOLOGY, [address] [place] [id number] Tommie Grajeda M.D. Director [facility] # [id number] 2 Machine Skiver: [id number] 3 Serum levels of PSA measured using the [employer] [place] DXI Hybritech immunoassay should not be interpreted as absolute evidence of the presence or absence of disease. The PSA value should be used in conjunction with other pertinent clinical diagnostic procedures. The values obtained with different assay methods or kits cannot be used interchangeably. 4 Therapeutic concentration: <50 ug/mL Toxic concentration: >120 ug/mL 5 Because ethnic data is not always readily [...] 15-29 5 Kidney failure <15 (or dialysis) 6 Presumptive Positive Presumptive positive results are unconfirmed. 7 The urine specimen was tested at the listed cutoffs: Drug class test level (ng/mL) Amphetamines 500 Barbiturates 200 Benzodiazepine metabolites 200 Cocaine metabolites 150 Cannabinoids 50 Opiates 300 Pcp 25 Specimen was received without chain of custody. Results should be used for medical purposes only. 8 Machine Skiver: [id number] 9 Machine Skiver: [id number] 10 Standard intensity warfarin therapeutic range: 2.0-3.0 [...] Positive Presumptive positive results are unconfirmed. 13 Presumptive Positive Presumptive positive results are unconfirmed. 14 The urine specimen was tested at the listed cutoffs: Drug class test level (ng/mL) Amphetamines 500 Barbiturates 200 Benzodiazepine metabolites 200 Cocaine metabolites 150 Cannabinoids 50 Opiates 300 Pcp 25 Specimen was received without chain of custody. Results should be used for medical purposes only. 15 Because ethnic data is not always readily [...] 15-29 5 Kidney failure <15 (or dialysis) 16 Therapeutic concentration: <50 ug/mL Toxic concentration: >120 ug/mL 17 SEE RESULT BELOW Name: SIM CHUN : [address]: Abel Lam MD Acct: [id number] Unit: [id number] AGE: 58 Location: [facility] Re03/18/19 SEX: M Status: ADM IN SPEC: [id number] AYLA: 03/17/19 [facility] DR: Louis Mayo MD REQ: [id number] RECD: 03/17/19 STATUS: KALLIE AGARWAL DR: Jigna Cuello MD _ SOURCE: URINE SPDESC: ORDERED: Urine Culture Procedure Result Reported Site Urine Culture Final 03/19/19- 0920 ML No growth of clinically significant organisms * ML - Main Lab . END OF REPORT DEPARTMENT OF PATHOLOGY, [address] [place] [address] Tommie Grajeda M.D. Director [facility] # [id number] Procedures Date Code Description Status 09/13/2019 88325 EKG Tracing & Interpretation Completed 06/25/2019 [id number] Colonoscopy Completed 12/03/2018 [id number] Diabetic Retinal Eye Exam Completed 08/18/2018 913534235 Diabetic Foot Exam Completed 08/05/2018 [id number] Diabetic Retinal Eye Exam Completed 02/22/2000 [id number] Diabetic Retinal Eye Exam Completed Medical Devices Description No Information Available Encounters Type Date Location Provider Dx Diagnosis Office Visit 07/06/2019 [facility] Internal Jigna Cuello MD E11.9 Type 2 diabetes 11:40a Medicine - [facility] mellitus without complications I10 Essential (primary) hypertension F10.10 Alcohol abuse, uncomplicated Z23 Encounter for immunization Office Visit 06/04/2019 1:30p [place] [facility] R20.2 Paresthesia of [facility] Flako, N.P. skin R25.1 Tremor, unspecified Z86.73 Prsnl hx of TIA (TIA), and cereb infrc w/o resid deficits F32.9 Major depressive disorder, single episode, unspecified G62.9 Polyneuropathy, unspecified Office Visit 05/04/2019 10:40a [facility] Internal Jigna Cuello, S20.212D Contusion of left Medicine - MD front wall of [facility] thorax, subsequent encounter F52.21 Male erectile disorder R19.7 Diarrhea, unspecified E11.9 Type 2 diabetes mellitus without complications Office Visit 04/12/2019 [place] G62.9 Polyneuropathy, 11:00a [facility] Elizabeth Sutton unspecified [facility] F32.9 Major depressive disorder, single episode, unspecified Z86.73 Prsnl hx of TIA (TIA), and cereb infrc w/o resid deficits R25.1 Tremor, unspecified R20.2 Paresthesia of skin Assessments Date Code Description Provider 09/13/2019 I10 Essential (primary) hypertension Yasmine Stevenson NP 09/13/2019 F10.10 Alcohol abuse, uncomplicated Yasmine Stevenson NP 09/13/2019 I25.10 Atherosclerotic heart disease of [place] Yasmine Stevenson NP coronary artery with 09/13/2019 E78.5 Hyperlipidemia, unspecified Yasmine Stevenson, HOANG 09/13/2019 R00.0 Tachycardia, unspecified Yasmine Stevenson NP [...] disorder Jigna Cuello MD 05/04/2019 R19.7 Diarrhea, glennified Jigna Cuello MD 05/04/2019 E11.9 Type 2 [...] 1:30 pm - Nurse Visit cc at [facility]10/21/2019 3:00 pm - Nurse Visit cc at [facility]09/16/2019 11 :00 am - Sandee Jovel MD at [facility] Internal Medicine - [facility]09/13/2019 - Yasmine Stevenson, NPI10 Essential (primary) scnfwjruftrwY95.10 Alcohol abuse, wtngoaqjiidehV34.10 Atherosclerotic heart disease of [place] coronary artery withReferral:[facility], Rehab:Cardiac Fac/ ClinicFollow up:follow up with Dr. Phelps not TREVA in 6 months.E78.5 Hyperlipidemia, ncazjgwfqmhH06.0 Tachycardia, unspecifiedNew Orders:Holter Monitor, Scheduled: 10/21/19 Functional Status Description No Information Available Mental Status Description No Information Available Referrals Refer to Reason for Referral Status Appt Date [facility] Sent [address] [place] [id number] [phone]
--- OUTSIDE RECORDS SUMMARY | 2019-11-03 11:22 | XMS REPORT | Continuity of Care Document ---
:1960 External Reference #:[id number] Author Name Sandee Jovel MD (transmitted by agent of provider Guerita Guy) Address [address] , [place] [address] Care Team Providers Name Role Phone Jigna Cuello M.D. - Family Medicine Care Team Information Intelligence Specialist Problems Active Problems Provider Date Benign essential hypertension Raciel Rm M.D., [facility], [facility] Onset: 2013 Chronic ischemic heart disease Raciel Rm M.D., [facility], [facility] Onset: 2013 Chest pain Raciel Rm M.D., [facility], [facility] Onset: 10/12/2013 Hyperlipidemia Raciel Rm M.D., [facility], [facility] Onset: 10/12/2013 Multi vessel coronary artery [...] Medications SIG Qnty Indications Ordering Date Provider Chiquis Take 1 tab by 30tabs E11.9 Sandee Jovel, 10/12/2019 25mg Tablets mouth once daily Accu-Check Glucose Use once daily 1units E11.9 Sandee Jovel, 10/12/2019 Monitor as needed to Device check FS Lancets Micro Thin 33G E11.9 Sandee Jovel, 10/12/2019 Thin 33G Misc Nicotine Polacrilex Week 1-6 take 1 72units Jigna Cuello MD 03/03/2019 4mg lozenge every Lozenges 1-2 hours as needed, not to exceed 5 lozenges in 6 hours Bupropion 2 tabs by mouth 60tabs Jigna Cuello MD 03/02/2019 Hydrochloride ER (XL) every morning 150mg Tablets ER 24HR Norvasc 1 by mouth every 90tabs I25.10 Yasmine Stevenson, 08/11/2018 5mg Tablets day 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 OPERATOR Lorazepam pt takes 45tabs Jigna Cuello MD 07/28/2018 1mg Tablets 0.5mg---1 by mouth twice a day as needed for anxiety or isomnia Cpap Mask And Supplies use as directed 1units G47.33 Jigna Cuello MD 07/23 Device Myrbetriq one po daily Unknown 50mg Tablets ER 24HR Venlafaxine HCL ER 1 by mouth every 30caps Jigna Cuello MD 75mg day with a Caps ER 24HR 37.5mg Pantoprazole Sodium 1 by mouth every 90tabs Jigna Cuello MD 40mg day Tablets DR Gabapentin 1 by mouth two 60caps Jigna Cuello MD 300mg Capsules times a day Hydroxyzine HCL take 1 tab by 90tabs Jgina Cuello MD 50mg mouth at at Tablets bedtime Folic Acid 1 by mouth every 90tabs Jigna Cuello MD 1mg Tablets day Atorvastatin Calcium take 1 tablet at 90tabs Jigna Cuello MD 20mg bedtime Tablets Aspirin Low Dose 1 by mouth every 90units Michael Henderson, SMALL CRAFT OPERATOR 81mg day Chewtabs Metoprolol Succinate 1.5 tablets by 135tabs Yasmine Stevenson, ER mouth every day SMALL CRAFT OPERATOR 25mg Tablets ER 24HR Nitrostat one sl q5min up QS Unknown 0.4mg Tablets to 3 doses prn Sub History Medications Disulfiram one po daily 30tabs F10.10 Jigna Cuello MD 07/06/2019 - 500mg 07/06/2019 Tablets Disulfiram one po daily (pt 30tabs F10.10 Jigna Cuello MD 07/06/2019 - 250mg not taking) 09/21/2019 Tablets Jardiance 1 by mouth every 30tabs R19.7 Sandee Jovel 05/06/2019 - 25mg day 10/12/2019 Tablets Steglatro 1 by mouth every 30tabs R19.7 Jigna Cuello MD 05/04/2019 - 15mg day 05/06/2019 Tablets Sildenafil Citrate one tablet by mouth 10tabs F52.21 Jigna Cuello MD 05/04 - one hour before 09/21/2019 50mg Tablets intercourse Medications Administered in Office Medication SIG Qnty Indications Ordering Provider Date Technetium TC 99M Jeb Gerardo DO FACC 08/04/2018 Tetrofosmin, Per Unit Dose Up To 40 Millicuries Injection Immunizations CPT Code Status Date Vaccine Lot # [id number] Given 09/22/2019 Pneumonia Vaccine [id number] Vital Signs Date Vital Result Comment 10/12/2019 9:14am Height 67 inches 5'7" Weight 199.00 lb Heart Rate 80 /min BP Systolic Sitting 134 mmHg BP Diastolic Sitting 83 mmHg O2 % BldC Oximetry 98 % BMI (Body Mass Index) 31.2 kg/m2 09/22/2019 1:49pm Height 67 inches 5'7" Weight 202.00 lb Heart Rate 107 /min BP Systolic 132 mmHg BP Diastolic 80 mmHg Body Temperature 97.6 F O2 % BldC Oximetry 96 % BMI (Body Mass Index) 31.6 kg/m2 Results Test Acquired Date Facility Test Result H/L Range Note Basic Metabolic 09/22/2019 [facility] Sodium 141 mmol/L Normal 135-[address] [place] [address] [phone] Potassium 4.3 mmol/L Normal 3.5-5.0 Chloride 99 mmol/L Low 101-111 Co2 Carbon Dioxide 29 mmol/L Normal 22-32 Anion Gap 13 mmol/L High 2-11 Glucose 154 mg/dL High 70-100 Blood Urea Nitrogen 16 mg/dL Normal 6-24 Creatinine 0.96 mg/dL Normal 0.67-1.17 BUN/Creatinine Ratio 16.7 Normal 8-20 Calcium 9.5 mg/dL Normal 8.6-10.3 Egfr Non- 80.2 >60 Egfr 97.0 >60 1 Urine Microalbumin 09/22/2019 [facility] Ur Microalbumin 40.3 mg /L Random [address] (mg/L) [place] [address] [phone] Urine Creatinine 59.44 mg/dL Urine Microalbumin/Creatinine 67.7 High <31 Drug Abuse 09/22/2019 [facility] Urine Presumptive Abnormal Cutoff: 2 W/Confirm, Ur [address] Alcohol Posi <SEE [address] [place] [address] NOTE> mg/dL [phone] Urine Amphetamine Negative ng/mL 3 Urine Barbiturates Negative ng/mL 4 Urine Benzodiazepines Negative ng/mL 5 Urine Cocaine Negative ng/mL 6 Urine Methadone Negative ng/mL Negative 7 Urine Opiates Negative ng/mL Negative 8 Urine Phencyclidine Negative ng/mL Cutoff: 25 Urine Tetrahydrocannabinol Negative ng/mL Cutoff: 50 9 Ethanol, Urine 09/22/2019 [facility] Ethanol-by 17 mg/dL Cutoff: [address] [place] [address] [phone] Urine Etoh Interpretation Positive. 10 Laboratory test 09/22/2019 [facility] Hemoglobin A1c 7.0 5-7 finding Laboratory test 07/06/2019 [facility] Hemoglobin A1c 7.5 High 5-7 finding Laboratory test 06/25/2019 [facility] Point of Care 121 mg/dL High 70-100 [address] [place] [address] [phone] Laboratory test 06/25/2019 [facility] Surgical SEE RESULT [address] [place] [address] [phone] Laboratory test 06/21/2019 [facility] PSA Diagnostic 1.935 ng/ mL Normal 0-4.0 [address] [place], [place] [address] [phone] Laboratory test 04/29/2019 [facility] Point of Care 283 mg/dL High 70-100 [address] [place] [address] [phone] Laboratory test 04/29/2019 [facility] Point of Care 181 mg/dL High 70-100 [address] [place] [address] [phone] CBC Auto Diff 04/29/2019 [facility] White Blood 7.5 10^3/uL Normal 3.5-10.[address] [place] [address] [phone] Red Blood Count 4.49 10^6/uL Normal 4.18-5.48 [...] Blood Cells % 0.2 Urine Drug 04/29/2019 [facility] Urine None Detected None Detect [facility]CR ED & [address] [facility] [place] [address] Screen [phone] Urine Barbiturates Screen None Detected None Detect Urine Benzodiazepine Screen None Detected None Detect Urine Cannabinoids Screen Presumptive Posi <SEE NOTE> Abnormal None Detect 16 Urine Cocaine Screen None Detected None Detect Urine Opiates Screen None Detected None Detect Urine Phencyclidine Screen None Detected None Detect 17 Comp Metabolic Panel 04/29/2019 [facility] Sodium 130 mmol/L Low 135-[address] [place] [address] [phone] Potassium 3.8 mmol/L Normal 3.5-5.0 Chloride 95 [...] Egfr Non- 58.8 >60 Egfr 71.1 >60 18 Laboratory test finding 04/29/2019 [facility] Alcohol 294 mg/dL High <10 [address] [place] [address] [phone] Acetaminophen < 15 g/mL 19 Salicylate < 2.50 mg/dL <30 TSH (Thyroid Stim Horm) 5.02 mcIU/mL Normal 0.34-5.60 Urinalysis Profile 04/29/2019 [facility] Urine Color Yellow [address] [place] [address] [phone] Urine Appearance Clear Urine Specific [place] 1.013 Normal 1.010-1.030 Urine pH 6.0 Normal 5-9 Urine Urobilinogen Negative Negative Urine Ketones Negative Negative Urine Protein Negative Negative Urine Leukocytes Negative Negative Urine Blood Negative Negative Urine Nitrite Negative Negative Urine Bilirubin Negative Negative Urine Glucose 1+(50 mg/dL) Abnormal Negative Inr/Protime 04/24/2019 [facility] Inr 1.33 High 0.82-1.[address] [place] [address] [phone] CBC Auto Diff 04/24/2019 [facility] White Blood 5.9 Normal 3.5 -10.[address] Count 10^3/[place] [address] [phone] Red Blood Count 4.55 10^6/uL Normal 4.18-5.48 [...] Cells % 0.2 Comp Metabolic Panel 04/24/2019 [facility] Sodium 133 mmol/L Low 135-[address] [place] [address] [phone] Chloride 95 mmol/L Low 101-111 Co2 Carbon [...] Egfr Non- 72.5 >60 Egfr 87.8 >60 21 Potassium 4.1 mmol/L Normal 3.5-5.0 Anion Gap 12 mmol/L High 2-11 Ast 205 U/L High 13-39 Laboratory test finding 04/24/2019 [facility] Alcohol 347 mg/dL High <10 [address] [place] [address] [phone] 1 Because ethnic data is not always [...] 5 Kidney failure <15 (or dialysis) 2 Presumptive Positive Drug confirmation to follow. Presumptive Positive means that the screening method is positive, but the test needs to be run by a confirmatory method before being finalized. 3 REFERENCE VALUE Cutoff: 500 4 REFERENCE VALUE Cutoff: 200 5 REFERENCE VALUE Cutoff: 100 6 REFERENCE VALUE Cutoff: 150 7 REFERENCE VALUE Cutoff: 300 8 REFERENCE VALUE Cutoff: 300 9 ADDITIONAL INFORMATION This report is intended for use in clinical monitoring or management of patients. It is not intended for use in employment-related testing. This test has been modified from the print production manager's instructions. Its performance characteristics were determined by [facility] in a manner consistent with CLIA requirements. This test has not been cleared or approved by the U.S. Food and Drug Administration. Test Performed by: [facility] - [address] [address] Occupational Therapist Assistant: Raymon Self M.D. Ph.D.; CLIA# [id number] 10 ADDITIONAL INFORMATION This report is intended for use in clinical monitoring and management of patients. It is not intended for use in employment-related testing. This test was developed and its performance characteristics determined by [facility] in a manner consistent with CLIA requirements. This test has not been cleared or approved by the U.S. Food and Drug Administration. Test Performed by: [facility] - [address] [address] Occupational Therapist Assistant: Raymon Self M.D. Ph.D.; IA# [id number] 11 Olive Packer: [id number] 12 SEE RESULT BELOW Name: SIM CHUN : [address]: Patricia Fontana MD Acct: [id number] Unit: [id number] AGE: 59 Location: ENDO Re06/25/19 SEX: M Status: DEP REF SPEC: [id number] AYLA: 06/25/19- SUBM DR: Patricia Glover MD REQ: [id number] RECD: 06/25/19 STATUS: DEJA AGARWAL DR: Jigna [...] CONTINUED ON NEXT PAGE DEPARTMENT OF PATHOLOGY, [address] [place] [address] Tmomie Grajeda M.D. Director [facility] # [id number] CLINICAL HISTORY History of polyps POST-OPERATIVE DIAGNOSIS [...] CONTINUED ON NEXT PAGE DEPARTMENT OF PATHOLOGY, [address] [place] [address] Tommie Grajead M.D. Director [facility] # [id number] Signed by and Reported on: Tommie Grajeda MD [address] END OF REPORT DEPARTMENT OF PATHOLOGY, [facility] [employer] [place], [place] [address] Tommie Grajeda M.D. Director [facility] # [id number] 13 Serum levels of PSA measured using the Edy Meena DXI Hybritech immunoassay should not be interpreted as absolute evidence of the presence or absence of disease. The PSA value should be used in conjunction with other pertinent clinical diagnostic procedures. The values obtained with different assay methods or kits cannot be used interchangeably. 14 Olive Packer: [id number] Olive Packer: [id number] 16 Presumptive Positive Presumptive positive results are unconfirmed. 17 The urine specimen was tested at the listed cutoffs: Drug class test level (ng/mL) Amphetamines 500 Barbiturates 200 Benzodiazepine metabolites 200 Cocaine metabolites 150 Cannabinoids 50 Opiates 300 Pcp 25 Specimen was received without chain of custody. Results should be used for medical purposes only. 18 Because ethnic data is not always [...] 5 Kidney failure <15 (or dialysis) 19 Therapeutic concentration: <50 ug/mL Toxic concentration: >120 ug/mL 20 Standard intensity warfarin therapeutic range: 2.0-3.0 High intensity warfarin therapeutic range: 2.5-3.5 21 Because ethnic data is not always readily [...] dialysis) Procedures Date Code Description Status 09/13/2019 61972 EKG Tracing & Interpretation Completed 06/25/2019 [id number] Colonoscopy Completed 12/03/2018 [id number] Diabetic Retinal Eye Exam Completed 08/18/2018 [id number] Diabetic Foot Exam Completed 08/05/2018 [id number] Diabetic Retinal Eye Exam Completed 02/22/2000 [id number] Diabetic Retinal Eye Exam Completed Medical Devices Description No Information Available Encounters Type Date Location Provider Dx Diagnosis Office Visit 09/14/2019 [facility] Internal Sandee Jovel, W00.9xxA Unspecified fall 11:30a Medicine - Ccmob MD due to ice and snow, initial encounter E11.9 Type 2 diabetes mellitus without complications S49.92xA Unsp injury of left shoulder and upper arm, init encntr Office Visit 09/13/2019 1:20p [facility] Yasmine Thuman, I10 Essential (primary) SMALL CRAFT OPERATOR hypertension F10.10 Alcohol abuse, uncomplicated I25.10 Athscl heart disease of [place] coronary artery w/o ang pctrs E78.5 Hyperlipidemia, unspecified R00.0 Tachycardia, unspecified Office Visit 07/06/2019 11:40a [facility] Internal Jigna Cuello, E11.9 Type 2 diabetes Medicine - MD mellitus without Ccmob complications I10 Essential (primary) hypertension F10.10 Alcohol abuse, uncomplicated Z23 Encounter for immunization Office Visit 06/04/2019 1:30p [facility] Leroy R20.2 Paresthesia of [facility] Flako, N.P. skin R25.1 Tremor, unspecified Z86.73 Prsnl hx of TIA (TIA), and cereb infrc w/o resid deficits F32.9 Major depressive disorder, single episode, unspecified G62.9 Polyneuropathy, unspecified Office Visit 05/04/2019 10:40a [facility] Internal Jigna Cuello, S20.212D Contusion of left Medicine - MD front wall of Ccmob thorax, subsequent encounter F52.21 Male erectile disorder R19.7 Diarrhea, unspecified E11.9 Type 2 diabetes mellitus without complications Office Visit 04/12/2019 [facility] G62.9 Polyneuropathy, 11:00a Neurologic Elizabeth Sutton unspecified [facility] F32.9 Major depressive disorder, single episode, unspecified Z86.73 Prsnl hx of TIA (TIA), and cereb infrc w/o resid deficits R25.1 Tremor, unspecified R20.2 Paresthesia of skin Assessments Date Code Description Provider 10/12/2019 M25.512 Pain in left shoulder Sandee Jovel MD 10/12/2019 F10.10 Alcohol abuse, uncomplicated Sandee Jovel MD 10/12/2019 E11.9 Type 2 diabetes mellitus without Sandee Jovel MD complications 10/12/2019 I10 Essential (primary) hypertension Sandee Jovel MD 09/22/2019 E11.9 Type 2 diabetes mellitus without [...] Jovel MD upper arm, initial encounter 09/13/2019 R94.31 Abnormal electrocardiogram [ECG] [EKG] Anju Phelps M.D. 09/13/2019 I10 Essential (primary) hypertension Yasmine Stevenson, SMALL CRAFT OPERATOR 09/13/2019 F10.10 Alcohol abuse, uncomplicated Yasmine Stevenson, HOANG 09/13/2019 I25.10 Atherosclerotic heart disease of [place] Yasmine Stevenson NP coronary artery with 09/13/2019 E78.5 Hyperlipidemia, unspecified Yasmine Stevenson, SMALL CRAFT OPERATOR 09/13/2019 R00.0 Tachycardia, unspecified Yasmine Stevenson, SMALL CRAFT OPERATOR 07/06/2019 E11.9 Type 2 diabetes mellitus without Jigna Cuello MD complications 07/06/2019 I10 Essential (primary) hypertension Jigna Cuello MD 07/06/2019 F10.10 Alcohol abuse, uncomplicated Jigna Cuello MD 07/06/2019 Z23 Encounter for immunization Jigna Cuello MD 06/04/2019 R20.2 Paresthesia of skin Leroy Arriola N.P. 06/04/2019 R25.1 Tremor, unspecified Leroy Arriola, [...] Cuello MD complications 04/12/2019 G62.9 Polyneuropathy, unspecified Gelnn Sutton M.D. 04/12/2019 F32.9 Major depressive disorder, single episode, Glenn Sutton M.D. unspecified 04/12/2019 Z86.73 Personal history of transient ischemic Glenn Sutton M.D. attack (TIA), and cer 04/12/2019 R25.1 Tremor, unspecified Glenn Stuton M.D. 04/12/2019 R20.2 Paresthesia of skin Glenn Sutton M.D. Plan of Treatment Future Appointment(s):10/22/2019 1:30 pm - Nurse Visit cc at [facility]10/21/2019 3:00 pm - Nurse Visit cc at [facility]10/12/2019 - Sandee Jovel, MDM25.512 Pain in left shoulderNew Therapy:Physical TherapyReferral:Nghia Cook MD, Surgery,JgcnbedepgE85.10 Alcohol abuse, qxbnboajooahjB11.9 Type 2 diabetes mellitus without complicationsNew Medication: Januvia 25 mg - Take 1 tab by mouth once dailyAccu-Check Glucose Monitor - Use once daily as needed to check FSLancets Micro Thin 33G Thin 33G -I10 Essential (primary) hypertensionComments:Your blood pressure is well controlled. Continue to take medications as prescribed. Continue to monitor salt in the diet Functional Status Description No Information Available Mental Status Description No Information Available Referrals Refer to Reason for Referral Status Appt Date Nghia Cook MD Created [address] [facility] [place] [address] [phone] [facility] [address] [place] [address] [phone]
--- OUTSIDE RECORDS SUMMARY | 2019-11-03 11:22 | XMS REPORT | Continuity of Care Document ---
:1960 External Reference #:[id number] Author Name Sandee Jovel MD (transmitted by agent of provider Jeri Vences) Address [address] , [place] [address] Care Team Providers Name Role Phone Jigna Cuello M.D. 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 Active Problems Provider Date Benign essential hypertension Raciel Rm M.D., [facility], [facility] Onset: 2013 Chronic ischemic heart disease Raciel Rm M.D., [facility], [facility] Onset: 2013 Chest pain Raciel Rm M.D., [facility], [facility] Onset: 10/12/2013 Hyperlipidemia Raciel Rm M.D., [facility], [facility] Onset: 10/12/2013 Multi vessel coronary [...] Use Former Drug User Smoking Status Reviewed: 09/14/19 Light tobacco smoker (10 or fewer cigarettes/day) [...] I25.10 Yasmine Stevenson, 08/11/2018 5mg Tablets day APPRENTICE STYLIST Lorazepam 1 by mouth twice a 45tabs [...] 135tabs Yasmine Stevenson, ER mouth every day APPRENTICE STYLIST 25mg Tablets ER 24HR Nitrostat one sl [...] Date Technetium TC 99M Jeb Gerardo DO [facility] 08/04/2018 Tetrofosmin, Per Unit Dose Up To 40 Millicuries Injection Immunizations Description No Information Available Vital Signs Date Vital Result Comment 09/14/2019 11:23am Height 67 inches 5'7" Weight 195.00 lb Heart Rate 73 /min BP Systolic Sitting 125 mmHg BP Diastolic Sitting 81 mmHg BMI (Body Mass Index) 30.5 kg/m2 09/13/2019 1:20pm Height 67 inches 5'7" Weight 195.12 lb with shoes Heart Rate 96 /min irr, left radial BP Systolic Sitting 134 mmHg Lue, reg cuff BP Diastolic Sitting 86 mmHg Lue, reg cuff BMI (Body Mass Index) 30.6 kg/m2 Ejection Fraction 50% 09/03/2018 Results Test Acquired Date Facility Test Result H/L Range Note Laboratory test 07/06/2019 [facility] In House Hemoglobin A1c 7.5 High 5-7 finding Laboratory test 06/25/2019 [facility] SEE RESULT [address] [place] [address] [phone] Laboratory test 06/25/2019 [facility] Point of Care 121 mg/dL High 70-100 2 finding [address] [place] [address] [phone] Laboratory test 06/21/2019 [facility] PSA Diagnostic 1.935 Normal 0-4.[address] ng/[place] [address] [phone] Urinalysis 04/29/2019 [facility] Urine Color Yellow Profile [address] [place] [address] [phone] Urine Appearance Clear Urine Specific [place] 1.013 Normal 1.010-1.030 Urine pH 6.0 Normal 5-9 Urine Urobilinogen Negative Negative Urine Ketones Negative Negative Urine Protein Negative Negative Urine Leukocytes Negative Negative Urine Blood Negative Negative Urine Nitrite Negative Negative Urine Bilirubin Negative Negative Urine Glucose 1+(50 mg/dL) Abnormal Negative Laboratory test finding 04/29/2019 [facility] Alcohol 294 mg/dL High <10 [address] [place] [address] [phone] Acetaminophen < 15 g/mL 4 Salicylate < 2.50 mg/dL <30 TSH (Thyroid Stim Horm) 5.02 mcIU/mL Normal 0.34-5.60 Comp Metabolic Panel 04/29/2019 [facility] Sodium 130 mmol/L Low 135-145 [address] [place] [address] [phone] Potassium 3.8 mmol/L Normal 3.5-5.0 Chloride 95 [...] Egfr 71.1 >60 5 Urine Drug 04/29/2019 [facility] Urine None Detected None Detect SCR ED & [address] [place] [address] Screen [phone] Urine Barbiturates Screen None Detected None Detect Urine Benzodiazepine Screen None Detected None Detect Urine Cannabinoids Screen Presumptive Posi <SEE NOTE> Abnormal None Detect 6 Urine Cocaine Screen None Detected None Detect Urine Opiates Screen None Detected None Detect Urine Phencyclidine Screen None Detected None Detect 7 CBC Auto 04/29/2019 [facility] White Blood 7.5 10^3/uL Normal 3.5-10.[address] [place] [address] [phone] Red Blood Count 4.49 10^6/uL Normal 4.18-5.48 [...] Blood Cells % 0.2 Laboratory test 04/29/2019 [facility] Point of 181 mg/dL High 70-100 [address] [place] [address] Glucose [phone] Laboratory test 04/29/2019 [facility] Point of 283 mg/dL High 70-[address] [place] [address] Glucose [phone] Inr/Protime 04/24/2019 [facility] Inr 1.33 High 0.82-1.[address] [place] [address] [phone] CBC Auto Diff 04/24/2019 [facility] White Blood 5.9 Normal 3.5 -10.[address] Count 10^3/[place] [address] [phone] Red Blood Count 4.55 10^6/uL Normal 4.18-5.48 [...] Cells % 0.2 Comp Metabolic Panel 04/24/2019 [facility] Sodium 133 mmol/L Low 135-145 [address] [place] [address] [phone] Chloride 95 mmol/L Low 101-111 Co2 Carbon [...] 205 U/L High 13-39 Laboratory test 04/24/2019 [facility] Alcohol 347 mg/dL High < [address] [place], [place] [address] [phone] CBC Auto Diff 03/17/2019 [facility] White Blood 8.3 Normal 3.5 -10.[address] Count 10^3/uL [place], [place] [address] [phone] Red Blood Count 4.15 10^6/uL Low 4.18-5.48 [...] Blood Cells % 0.1 Urine Drug 03/17/2019 [facility] Urine None Detected None Detect SCR ED & [address] [place] [address] Screen [phone] Urine Barbiturates Screen None Detected None Detect Urine Benzodiazepine Screen Presumptive Posi <SEE NOTE> Abnormal None Detect 12 Urine Cannabinoids Screen Presumptive Posi <SEE NOTE> Abnormal None Detect 13 Urine Cocaine Screen None Detected None Detect Urine Opiates Screen None Detected None Detect Urine Phencyclidine Screen None Detected None Detect 14 Urinalysis Profile 03/17/2019 [facility] Urine Color Gloria [address] [place] [address] [phone] Urine Appearance Cloudy Urine Specific [place] 1.021 Normal 1.010-1.030 Urine pH 5.0 Normal [...] Casts Present Abnormal Absent Comp Metabolic 03/17/2019 [facility] Sodium 137 mmol/L Normal 135-145 Panel [address] [place] [address] [phone] Potassium 3.2 mmol/L Low 3.5-5.0 Chloride 100 [...] Egfr 96.2 >60 15 Laboratory test 03/17/2019 [facility] Acetaminophen < 15 g/mL [address] [place] [address] [phone] Alcohol 212 mg/dL High <10 Salicylate < 2.50 mg/dL <30 TSH (Thyroid Stim Horm) 5.71 mcIU/mL High 0.34-5.60 Urine Culture And 03/17/2019 [facility] Urine Culture SEE RESULT [address] [place] [address] [phone] 1 SEE RESULT BELOW Name: SIM CHUN : [address]: Patricia Fontana MD Acct: [id number] Unit: [id number] AGE: 59 Location: ENDO Re06/25/19 SEX: M Status: DEP REF SPEC: [id number] AYLA: 06/25/19- SUBM DR: Patricia Glover MD REQ: [id number] RECD: 06/25/19 STATUS: DEJA AGARWAL DR: Jigna [...] CONTINUED ON NEXT PAGE DEPARTMENT OF PATHOLOGY, [address] [place] [address] Tommie Grajeda M.D. Director [facility] # [id number] CLINICAL HISTORY History of polyps POST-OPERATIVE DIAGNOSIS [...] CONTINUED ON NEXT PAGE DEPARTMENT OF PATHOLOGY, [address] [place] [address] Tommie Grajeda M.D. Director [facility] # [id number] Signed by and Reported on: Tommie Grajeda MD 1210 END OF REPORT DEPARTMENT OF PATHOLOGY, [address] [place] [address] Tommie Grajeda M.D. Director [facility] # [id number] 2 [facility] Aide: [id number] 3 Serum levels of PSA measured using [...] be used for medical purposes only. 8 [facility] Aide: [id number] 9 [facility] Aide: [id number] 10 Standard intensity warfarin therapeutic range: 2.0-3.0 [...] [address]: Abel Lam MD Acct: [id number] Unit: [id number] AGE: 58 Location: [facility] Re03/18/19 SEX: M Status: ADM IN SPEC: [id number] AYLA: 03/17/[address] [facility] [address]: Louis Mayo MD REQ: [id number] RECD: 03/17/19 STATUS: KALLIE AGARWAL DR: Jigna Cuello MD _ SOURCE: URINE SPDES: ORDERED: Urine Culture Procedure Result Reported Site Urine Culture Final 03/19/19- 919 ML No growth of clinically significant organisms * ML - Main Lab . END OF REPORT DEPARTMENT OF PATHOLOGY, [address] [place] [address] Tommie Grajeda M.D. Director [facility] # [id number] Procedures Date Code Description Status 09/13/2019 83816 EKG Tracing & Interpretation Completed 06/25/2019 [id number] Colonoscopy Completed 12/03/2018 [id number] Diabetic Retinal Eye Exam Completed 08/18/2018 [id number] Diabetic Foot Exam Completed 08/05/2018 [id number] Diabetic Retinal Eye Exam Completed 02/22/2000 [id number] Diabetic Retinal Eye Exam Completed Medical Devices Description No Information Available Encounters Type Date Location Provider Dx Diagnosis Office Visit 09/13/2019 [facility] Yasmine Stevenson NP I10 Essential (primary) 1:20p hypertension F10.10 Alcohol abuse, uncomplicated I25.10 Athscl heart disease of [place] coronary artery w/o ang pctrs E78.5 Hyperlipidemia, unspecified R00.0 Tachycardia, unspecified Office Visit 07/06/2019 11:40a [facility] Internal Jigna Cuello, E11.9 Type 2 diabetes Medicine - MD mellitus without Ccmob complications I10 Essential (primary) hypertension F10.10 Alcohol abuse, uncomplicated Z23 Encounter for immunization Office Visit 06/04/2019 1:30p [facility] Leroy R20.2 Paresthesia of [facility] Flako N.P. skin R25.1 Tremor, unspecified Z86.73 Prsnl hx of TIA (TIA), and cereb infrc w/o resid deficits F32.9 Major depressive disorder, single episode, unspecified G62.9 Polyneuropathy, unspecified Office Visit 05/04/2019 10:40a [facility] Internal Jigna Cuello, S20.212D Contusion of left Medicine - MD front wall of Ccmob thorax, subsequent encounter F52.21 Male erectile disorder R19.7 Diarrhea, unspecified E11.9 Type 2 diabetes mellitus without complications Office Visit 04/12/2019 [facility] G62.9 Polyneuropathy, 11:00a Neurologic Renetta Sutton. unspecified [facility] F32.9 Major depressive disorder, single episode, unspecified Z86.73 Prsnl hx of TIA (TIA), and cereb infrc w/o resid deficits R25.1 Tremor, unspecified R20.2 Paresthesia of skin Assessments Date Code Description Provider 09/14/2019 W00.9xxA Unspecified fall due to ice and snow, Sandee Jovel MD initial encounter 09/14/2019 E11.9 Type 2 diabetes mellitus without Sandee Jovel MD complications 09/14/2019 R25.1 Tremor, unspecified Sandee Jovel MD 09/14/2019 H53.8 Other visual disturbances Sandee Jovel MD 09/13/2019 I10 Essential (primary) hypertension Yasmine Stevenson NP 09/13/2019 F10.10 Alcohol abuse, uncomplicated Yasmine Stevenson, APPRENTICE STYLIST 09/13/2019 I25.10 Atherosclerotic heart disease of [place] Yasmine Stevenson NP coronary artery with 09/13/2019 E78.5 Hyperlipidemia, unspecified Yasmine Stevenson APPRENTICE STYLIST 09/13/2019 R00.0 Tachycardia, unspecified Yasmine Stevenson, APPRENTICE STYLIST 07/06/2019 E11.9 Type 2 diabetes mellitus without [...] Glenn Sutton M.D. Plan of Treatment Future Appointment(s):09/22/2019 2:00 pm - Sandee Jovel MD at [facility] Internal Medicine - [facility]10/22/2019 1:30 pm - [facility] Visit [facility]/06/ 2020 3:00 pm - Nurse Visit [facility] at [facility]09/14/2019 - Sandee Jovel MDW00.9xxA Unspecified fall due to ice and snow, initial encounterNew Xrays: Shoulder Left 2+ VWS, Ordered: 09/14/19Specimen Xray, Ordered: 09/14/19E11.9 Type 2 diabetes mellitus without sbptmzsgdeymuD14.1 Tremor, qfqppcdpbstA74.8 Other visual disturbances Functional Status Description No Information Available Mental Status Description No Information Available Referrals Refer to Dr Reason for Referral Status Appt Date [facility] [address] [place] [address] [phone]
[2019-11-03 11:34] LABS: Troponin I 0.02 ng/mL (<0.03)
[2019-11-03 11:48] LABS: ALT 85 U/L (7-52); Albumin 4.4 g/dL (3.2-5.2); Albumin/Globulin Ratio 1.3 (1-3); Alkaline Phosphatase 134 U/L (34-104); BUN/Creatinine Ratio 10.3 (8-20); Blood Urea Nitrogen 14 mg/dL (6-24); CO2 Carbon Dioxide 23 mmol/L (22-32); Calcium 8.1 mg/dL (8.6-10.3); Chloride 93 mmol/L (101-111); EGFR African American 64.9 (>60); EGFR Non-African American 53.6 (>60); Globulin 3.5 g/dL (2-4); Glucose 211 mg/dL (70-100); Sodium 136 mmol/L (135-145); Total Protein 7.9 g/dL (6.4-8.9)
[2019-11-03 11:57] LABS: Alcohol 119 mg/dL (<10)
[2019-11-03 12:48] LABS: Anion Gap 20 mmol/L (2-11); Magnesium 1.6 mg/dL (1.9-2.7)
[2019-11-03] MEDS ORDERED: Magnesium Sulfate 2 GM IV* 2 GM/50 ML BAG IVPB ONE (12:51)
[2019-11-03] MEDS ORDERED: Nitroglycerin TAB 0.4 MG* 0.4 MG TAB SL PRN (14:30)
[2019-11-03] MEDS ORDERED: Thiamine INJ* 100 MG/ML 2 ML VIAL IM ONE (14:38)
[2019-11-03] MEDS ORDERED: Dextrose 50% Syringe 50 ML* 25 GM/50 ML SYRINGE IV PUSH PRN (14:52)
[2019-11-03] MEDS: Ondansetron INJ* 2 MG/ML VIAL IV PRN ×2 (16:06→23:30)
[2019-11-03] MEDS: Multivitamins/Minerals TAB PO SCH (16:07)
[2019-11-03] MEDS: Thiamine TAB* 100 MG TAB PO SCH (16:07)
[2019-11-03] MEDS: Nicotine PATCH 21 MG/24 HR* PATCH TRANSDERM SCH (16:07)
[2019-11-03] MEDS: LORazepam INJ* 2 MG/ML 1 ML VIAL IV SCH ×2 (16:07→23:51)
[2019-11-03] MEDS: Enoxaparin(*) 40 MG/0.4 ML SYR SUBCUT SCH (16:07)
[2019-11-03] MEDS: NS 0.9% 1000 ML** 1,000 ML IV SCH (16:07)
[2019-11-03] MEDS: Insulin LISPRO* 1 UNITS UNIT SUBCUT SCH (16:20)
--- NOTE | 2019-11-03 16:32 | HP ---
CC: Dr. Jigna Cuello * HISTORY AND PHYSICAL: DATE OF ADMISSION: 11/03/19 PRIMARY CARE PROVIDER: Dr. Jigna Cuello. ATTENDING PHYSICIAN: Dr. Dylan Zavala * (dictated by MIRYAM Mckeon). CHIEF COMPLAINT: Nausea, vomiting. HISTORY OF PRESENT ILLNESS: Mr. Chun is a 59-year-old male with past medical history of CAD, diabetes mellitus type 2, hypertension, hyperlipidemia, alcohol abuse, depression, anxiety, who presented to the ER today with complaints of vomiting that began yesterday. The patient reports he vomited about 2 L of yellow emesis last night. He intermittently slept throughout the night and woke up with continued nausea and vomiting. He then called the ambulance to bring him to the hospital for evaluation. He notes that the last time he vomited was upon arrival. He has since had Zofran, which helped. He has tolerated oral intake after Zofran was administered, but the patient notes that he has been unable to tolerate any oral intake except vodka for "a few days." He reports diffuse abdominal pain, cold sweats, agitation, palpitations, visual hallucinations, confusion, and weakness. He also reports upper extremity tremors , which he states is chronic. He denies diarrhea, hematemesis. The patient reports he fell down a flight of stairs approximately 2 months ago and injured the left shoulder for which he is following with Ortho outpatient. Currently, the patient states he is feeling well. He has tolerated some intake and Zofran is controlling his nausea and vomiting well. The patient has a history of admissions for alcohol withdrawal and reports an episode of seizures associated with alcohol withdrawal. In the ER, the patient received a full workup. His CBC is within normal limits. CMP show low chloride and anion gap, creatinine of 1.36, glucose of 211 , low magnesium, and transaminitis. Lipase is 65. Alcohol level is 119. Ultrasound of the gallbladder shows hepatomegaly, fatty liver infiltration without acute cholecystitis. In the ER, the patient was given lorazepam 1 mg x2 doses, magnesium 2 g, Zofran 4 mg, 2 L IV fluid bolus. The hospitalist team was asked to evaluate the patient for admission. PAST MEDICAL HISTORY: 1. Coronary artery disease, status post HI and stent placement. 2. Diabetes mellitus type 2. 3. Hypertension. 4. Hyperlipidemia. 5. History of CVA. 6. Fatty liver disease. 7. Guzman's esophagus. 8. Alcohol abuse. 9. Chronic tremor. 10. Obstructive sleep apnea. 11. Depression. 12. Anxiety. PAST SURGICAL HISTORY: Cardiac stent x3, left rotator repair, septoplasties, sinus surgery. HOME MEDICATIONS: 1. Amlodipine 5 mg p.o. daily. 2. Aspirin 81 mg p.o. daily. 3. Atorvastatin 20 mg p.o. at bedtime. 4. Bupropion XL 300 mg p.o. daily. 5. Fesoterodine 8 mg p.o. daily. 6. Folic acid 1 mg p.o. daily. 7. Gabapentin 300 mg p.o. b.i.d. 8. Lorazepam 0.5 mg p.o. b.i.d. p.r.n., MDD 2 tabs. 9. Metoprolol succinate 37.5 mg p.o. daily. 10. Mirabegron 50 mg p.o. daily. 11. Nitroglycerin 0.4 mg sublingual q.5 minutes p.r.n. 12. Ondansetron 4 mg p.o. t.i.d. p.r.n. 13. Pantoprazole 40 mg p.o. daily. 14. Sitagliptin 25 mg p.o. daily. 15. Venlafaxine ER 75 mg p.o. daily. DRUG ALLERGIES: ACAMPROSATE, DONEPEZIL, SULFA. FAMILY HISTORY: Mom had a history of HI, CVA, diabetes, cervical cancer. Maternal grandfather had a history of pacemaker, HI. Father was quadriplegic after an accident. SOCIAL HISTORY: The patient has a 40-pack year smoking history. He reports that in the last couple years he has cut down to 5 cigarettes per day. He drinks 2 pints of vodka per day. He does not use any other illicit drugs. He is disabled and no longer works. He is , with 1 child. He lives at [facility]. In the event that he is unable to make his own medical decisions, he has appointed his brother, Jann Chun, to be his surrogate decision maker. REVIEW OF SYSTEMS: A 14-point review of systems has been performed and all the pertinent positives and negatives are in the HPI. All other systems are negative. PHYSICAL EXAMINATION GENERAL: Mr. Chun is a well-developed, well-nourished, obese, middle-aged white male, who appears mildly diaphoretic and tremulous. He is breathing comfortably on room air. HEENT: PERRL. EOMI. Visual diaz grossly intact. Sclerae are nonicteric without injection. The patient appears to be hard of hearing. Oral mucous membranes are mildly dry. Posterior pharynx is clear. Tongue is at midline. Palate elevates symmetrically. PULMONARY: Symmetrical chest expansion without use of accessory muscles. Clear to auscultation bilaterally without rhonchi, wheeze, or rales. CARDIOVASCULAR: Sinus tachycardia. S1, S2 present without murmurs, rubs, clicks, or gallops. There is no JVD or peripheral edema. ABDOMEN: Bowel sounds hypoactive. Abdomen is nontender to palpation. NEURO: The patient is awake. He is alert and oriented x3. Cranial nerves II through XII are grossly intact. DIAGNOSTIC STUDIES/LAB DATA: 1. CBC: WBC 5.0, hemoglobin 15.5, hematocrit 44, MCV 93, platelets 152. 2. CMP: Sodium 139, potassium test not performed, chloride 93, carbon dioxide 23, anion gap 20, BUN 14, creatinine 1.36, glucose 211, calcium 8.1, magnesium 1.6. Bilirubin 1.40, AST not performed, ALT 85, alk phos 134. Troponin 0.02. Lipase 65. 3. Gallbladder ultrasound, impression: Hepatomegaly with fatty infiltration of the liver. No sonographic features of acute cholecystitis. ASSESSMENT AND PLAN: Mr. Chun is a 59-year-old male with a past medical history of coronary artery disease, diabetes, hypertension, hyperlipidemia, alcohol abuse, who presented to the ER with complaints of nausea, vomiting, and diffuse abdominal pain since the night prior, as well as alcohol intoxication. The patient will be admitted for: 1. Nausea, vomiting, abdominal pain. Patient has had these symptoms since last night. He reports that he has been unable to tolerate oral intake except vodka for the last couple nights. As a result of vomiting, he has electrolyte abnormalities. He reports food tolerance with Zofran; therefore, we will continue Zofran. We will continue to monitor and replete electrolytes. He has been placed on maintenance fluids at 100 cc per hour, which should be discontinued once he is tolerating oral intake. Ultrasound of the gallbladder was unremarkable. Lipase is within normal limits. I do not suspect pancreatitis or gallbladder disease as the cause of nausea, vomiting, abdominal pain. This appears to be due to alcohol abuse, possibly due to a viral gastritis. The patient denies diarrhea. The patient's potassium was not resulted. This test will be repeated and potassium will be replaced as necessary. 2. Alcohol abuse. The patient has a history of alcohol abuse with reported intake of 2 pints of vodka per day. He has a history of admissions for withdrawal and reports 1 episode of seizures during withdrawal. He will be placed on WAM protocol and seizure prophylaxis. Folic acid, thiamine, and multivitamins have been added on to his daily medicines. 3. Acute kidney injury. The patient appears to have an acute kidney injury with a creatinine of 1.36. This is likely due to dehydration. He has been placed on maintenance fluids. We will recheck creatinine in the morning. 4. Coronary artery disease. Continue home metoprolol, aspirin, statin. 5. Diabetes mellitus. At this time, we will hold the patient's sitagliptin. He has been placed on a.c. fingersticks and lispro sliding scale. 6. Hypertension. Continue amlodipine. 7. Hyperlipidemia. Continue statin. 8. Depression/anxiety. Continue bupropion, venlafaxine. The patient's home lorazepam has been discontinued at this time and he has been placed on WAM protocol with Ativan administration per WAM protocol and seizure prophylaxis. 9. DVT prophylaxis: According to DVT Risk Assessment, the patient scores 2, placing him at moderate risk. He has been started on Lovenox. 10. Code status: Full code. TIME SPENT: Approximately 60 minutes was spent on this admission, greater than half that time was spent [id number] with the patient obtaining history, performing physical, and reviewing the plan of care. The case has been discussed with my attending, Dr. Zavala, who is in agreement with the plan of care. MIRYAM LUIS [id number]/[facility] #: [id number] [place]
[2019-11-03] MEDS: LORazepam INJ* 2 MG/ML 1 ML VIAL IV PUSH SCH ×2 (20:21→22:24)
[2019-11-03] MEDS: Gabapentin CAP(*) 300 MG PO SCH (22:26)
[2019-11-03] MEDS: Atorvastatin* 20 MG TAB PO SCH (22:27)
[2019-11-04] MEDS: LORazepam INJ* 2 MG/ML 1 ML VIAL IV PUSH SCH ×4 (02:39→21:58)
[2019-11-04] MEDS: NS 0.9% 1000 ML** 1,000 ML IV SCH (02:42)
[2019-11-04] MEDS: Ondansetron INJ* 2 MG/ML VIAL IV PRN ×2 (06:02→21:46)
[2019-11-04 07:19] LABS: ALT 62 U/L (7-52); Albumin 3.5 g/dL (3.2-5.2); Albumin/Globulin Ratio 1.3 (1-3); Alkaline Phosphatase 107 U/L (34-104); BUN/Creatinine Ratio 7.2 (8-20); Blood Urea Nitrogen 5 mg/dL (6-24); CO2 Carbon Dioxide 22 mmol/L (22-32); Calcium 6.5 mg/dL (8.6-10.3); Chloride 95 mmol/L (101-111); EGFR Non-African American 117.4 (>60); Globulin 2.6 g/dL (2-4); Glucose 167 mg/dL (70-100); Magnesium 1.4 mg/dL (1.9-2.7); Sodium 130 mmol/L (135-145); Total Protein 6.1 g/dL (6.4-8.9)
[2019-11-04] MEDS ORDERED: Magnesium Sulf 4 GM/100 ML IV* 4,000 MG/100 ML BAG IVPB ONE (07:20)
[2019-11-04 07:55] LABS: ABS Eosinophils 0.2 10^3/ul (0-0.6); ABS Lymphocytes 1.3 10^3/ul (1.0-4.8); ABS Monocytes 0.2 10^3/ul (0-0.8); ABS Neutrophils 2.8 10^3/ul (1.5-7.7); Eosinophil % 3.4 %; Hematocrit 36 % (42-52); Hemoglobin 12.7 g/dL (14.0-18.0); Lymphocyte % 28.9 %; Mean Corpuscular HGB Conc 35 g/dL (31-36); Mean Corpuscular Hemoglobin 32 pg (27-31); Mean Corpuscular Volume 92 fL (80-94); Nucleated Red Blood Cells % 0.2; Platelet Count 110 10^3/uL (150-450); Red Blood Count 3.93 10^6 /uL (4.18-5.48); Red Cell Distribution Width 15 % (10-15); White Blood Count 4.5 10^3/uL (3.5-10.8)
[2019-11-04 08:09] LABS: Anion Gap 13 mmol/L (2-11)
[2019-11-04] MEDS: Insulin LISPRO* 1 UNITS UNIT SUBCUT SCH ×3 (08:36→17:33)
[2019-11-04] MEDS: Nicotine PATCH 21 MG/24 HR* PATCH TRANSDERM SCH (08:37)
[2019-11-04] MEDS: Metoprolol Succinate XL TAB* 25 MG PO SCH (08:41)
[2019-11-04] MEDS: BuPROPion XL* 150 MG TAB.XL PO SCH (08:41)
[2019-11-04] MEDS: Gabapentin CAP(*) 300 MG PO SCH ×2 (08:42→21:52)
[2019-11-04] MEDS: Aspirin EC TAB* 81 MG TAB.EC PO SCH (08:42)
[2019-11-04] MEDS: Folic Acid TAB* 1 MG PO SCH (08:42)
[2019-11-04] MEDS: Pantoprazole TAB * 40 MG TAB PO SCH (08:42)
[2019-11-04] MEDS: Venlafaxine EXT RELEASE CAP* 75 MG PO SCH (08:43)
[2019-11-04] MEDS: amLODIPine TAB* 5 MG PO SCH (08:43)
[2019-11-04] MEDS: Thiamine TAB* 100 MG TAB PO SCH (08:44)
[2019-11-04] MEDS: Multivitamins/Minerals TAB PO SCH (08:44)
[2019-11-04] MEDS: LORazepam INJ* 2 MG/ML 1 ML VIAL IV SCH ×2 (08:55→22:23)
[2019-11-04] MEDS: FESOTERODINE 8 MG PO SCH (11:10)
[2019-11-04] MEDS: PTO: Mirabegron (NF) 50 MG TAB PO SCH (11:11)
[2019-11-04 11:54] LABS: Cholesterol 251 mg/dL; HDL Cholesterol 36.6 mg/dL
[2019-11-04 12:19] LABS: Triglycerides 2658 mg/dL
[2019-11-04 12:35] LABS: LDL Cholesterol Direct 53 mg/dL
--- NOTE | 2019-11-04 13:50 | PN ---
Subjective Date of Service: 11/04/19 Interval History: Mr. Chun is feeling better today. He had one episode of emesis overnight, but none since. He did tolerate solid food for breakfast and lunch. No further abdominal pain. He is having some diarrhea which he has had intermittently in the past r/t medications. He does express interest in rehab and abstaining from alcohol. No concerns from nursing. Family History: Unchanged from Admission Social History: Unchanged from Admission Past Medical History: Unchanged from Admission Objective Active Medications: Amlodipine Besylate (Norvasc Tab*) 5 mg PO DAILY [facility] Aspirin (Aspirin Ec Tab*) 81 mg PO DAILY [facility] Atorvastatin Calcium (Lipitor*) 20 mg PO BEDTIME BARB Bupropion HCl (Wellbutrin Xl *) 300 mg PO DAILY [facility] Dextrose (D50w Syringe 50 Ml*) 12.5 gm IV PUSH .FOR FS < 60 - SS PRN FS < 60 Enoxaparin Sodium (Lovenox(*)) 40 mg SUBCUT Q24H BARB Fenofibrate (Tricor) 54 mg PO DAILY [facility] Fesoterodine Fumarate (Toviaz (Nf)) 8 mg PO DAILY [facility] Folic Acid (Folvite Tab*) 1 mg PO DAILY [facility] Gabapentin (Neurontin Cap(*)) 300 mg PO BID [facility] Insulin Human Lispro (Humalog*) 0 units SUBCUT AC BARB; Protocol Lorazepam (Ativan Inj*) 0 - 3 mg IV PUSH .PER [facility] PROTOCOL BARB; Protocol Lorazepam (Ativan Inj*) 1 mg IV Q12H BARB; Taper Magnesium Oxide (Magox 400 Tab*) 400 mg PO DAILY [facility] Metoprolol Succinate (Toprol Xl Tab*) 37.5 mg PO DAILY [facility] Mirabegron (Myrbetriq (Nf)) 50 mg PO DAILY [facility] Multivitamins/Minerals (Theragran/Minerals Tab*) 1 tab PO DAILY [facility] Nicotine (Nicotine Patch 21 Mg/24 Hr*) 1 patch TRANSDERM DAILY [facility] Nitroglycerin (Nitroglycerin Tab 0.4 Mg*) 0.4 mg SL Q5M PRN ANGINA Ondansetron HCl (Zofran Inj*) 4 mg IV Q4H PRN NAUSEA/VOMITING Pantoprazole Sodium (Protonix Tab*) 40 mg PO DAILY [facility] Thiamine HCl (Vitamin B-1 Tab*) 100 mg PO DAILY [facility] Venlafaxine HCl (Effexor Xr Cap*) 75 mg PO DAILY [facility] Vital Signs - 8 hr 11/04/19 11/04/19 11/04/19 06:02 07:56 08:00 Temperature 98.1 F Pulse Rate 115 Respiratory 18 18 18 Rate Blood Pressure 127/82 (mmHg) O2 Sat by Pulse 100 Oximetry 11/04/19 11/04/19 11/04/19 08:42 08:55 10:00 Temperature Pulse Rate Respiratory 18 18 20 Rate Blood Pressure (mmHg) O2 Sat by Pulse Oximetry 11/04/19 11/04/19 11/04/19 10:05 12:00 12:01 Temperature 97.8 F 97.5 F Pulse Rate 102 96 Respiratory 20 16 16 Rate Blood Pressure 133/84 139/81 (mmHg) O2 Sat by Pulse 95 95 Oximetry Oxygen Devices in Use Now: None Appearance: Middle-aged male sitting in bed in NAD Ears/Nose/Mouth/Throat: Mucous Membranes Moist Neck: NL Appearance and Movements; NL JVP, Trachea Midline Respiratory: Symmetrical Chest Expansion and Respiratory Effort, Clear to Auscultation Cardiovascular: NL Sounds; No Murmurs; No JVD, RRR Abdominal: NL Sounds; No Tenderness; No Distention Extremities: - - Mild nonpitting BLE Neurological: Alert and Oriented x 3 Lines/Tubes/Other Access: Clean, Dry and Intact Peripheral IV Nutrition: Taking PO's Result Diagrams: 11/04/19 06:25 11/04/19 09:30 Assess/Plan/Problems-Billing Assessment: Mr. Chun is a 59 yo M with PMH of CAD s/p stent, DM2, HTN, HLD, CVA, fatty liver, Guzman's esophagus, ETOH abuse, CHARLENE, depression, anxiety; who presented to the ED with c/o N/V and was found to have JUDIT and electrolyte abnormalities. - Patient Problems (1) Alcohol withdrawal Code(s): F10.239 - ALCOHOL DEPENDENCE WITH WITHDRAWAL, UNSPECIFIED Comment: - History of Korsakoff dementia - Patient expresses desire to abstain from alcohol - Last drink was day of admission - [facility] protocol - Continue folic acid, thiamine, multivitamin (2) Hypertriglyceridemia Code(s): E78.1 - PURE HYPERGLYCERIDEMIA Comment: - Triglycerides 2600 - Unclear etiology, suspect essential as there is no clear history of familial - Start fenofibrate (3) Nausea and vomiting Code(s): R11.2 - NAUSEA WITH VOMITING, UNSPECIFIED Comment: - Present on admission with abdominal pain and one additional episode overnight of emesis, now resolved - Suspect gastritis, viral vs alcohol-related - Tolerating soft diet - Continue Zofran PRN (4) Hypomagnesemia Code(s): E83.42 - HYPOMAGNESEMIA Comment: - Replete and recheck in AM (5) Transaminitis Code(s): R74.0 - NONSPEC ELEV OF LEVELS OF TRANSAMNS & LACTIC ACID DEHYDRGNSE Comment: - ALT and total bili at baseline, but alk phos acutely elevated - Unclear etiology, but there is a history of fatty liver - Recheck tomorrow (6) JUDIT (acute kidney injury) Code(s): N17.9 - ACUTE KIDNEY FAILURE, UNSPECIFIED Comment: - Present on admission, now resolved - Secondary to dehydration (7) Diabetes Code(s): E11.9 - TYPE 2 DIABETES MELLITUS WITHOUT COMPLICATIONS Comment: - Pending A1c; most recent was 7.5% - Continue Lispro SS (8) CAD (coronary artery disease) Code(s): I25.10 - ATHSCL HEART DISEASE OF [place] CORONARY ARTERY W/O ANG PCTRS Comment: - Continue aspirin, atorvastatin, metoprolol (9) Hypertension Code(s): I10 - ESSENTIAL (PRIMARY) HYPERTENSION Comment: - Normotensive - Continue metoprolol, amlodipine (10) Anxiety and depression Code(s): F41.9 - ANXIETY DISORDER, UNSPECIFIED; F32.9 - MAJOR DEPRESSIVE DISORDER, SINGLE EPISODE, UNSPECIFIED Comment: - Continue bupropion, venlafaxine, lorazepam (11) Guzman esophagus Code(s): K22.70 - GUZMAN'S ESOPHAGUS WITHOUT DYSPLASIA Comment: - Continue pantoprazole (12) Neuropathy Code(s): G62.9 - POLYNEUROPATHY, UNSPECIFIED Comment: - Continue gabapentin (13) DVT prophylaxis Comment: - Lovenox (14) Full code status Code(s): Z78.9 - OTHER SPECIFIED HEALTH STATUS Comment: Status and Disposition: Inpatient. Anticipate d/c home when medically stable. Attending: Christi Nowak
[2019-11-04] MEDS: Enoxaparin(*) 40 MG/0.4 ML SYR SUBCUT SCH (14:34)
[2019-11-04] MEDS: Loperamide CAP* 2 MG PO PRN (18:37)
[2019-11-04] MEDS: Atorvastatin* 20 MG TAB PO SCH (21:53)
[2019-11-05] MEDS: LORazepam INJ* 2 MG/ML 1 ML VIAL IV PUSH SCH ×3 (00:26→06:29)
[2019-11-05] MEDS: Loperamide CAP* 2 MG PO PRN (01:03)
[2019-11-05] MEDS: Ondansetron INJ* 2 MG/ML VIAL IV PRN (02:10)
[2019-11-05] MEDS ORDERED: Lorazepam PYXIS KEY PRN ×2 (03:20→05:11)
[2019-11-05] MEDS ORDERED: LORazepam INJ* 2 MG/ML 1 ML VIAL IV PUSH ONE ×2 (03:20→05:11)
[2019-11-05] MEDS: LORazepam INJ* 2 MG/ML 1 ML VIAL IV SCH ×3 (03:34→21:47)
--- NOTE | 2019-11-05 05:22 | PN ---
Hospitalist Progress Note Date of Service: 11/05/19 Paged at approximately 0300 for patient attempting to leave against medical advice. Discussed with patient at that point the risks of leaving against medical advice including falling, hitting head, bleeding, relapse, seizures, and . Patient instructed that in order to demonstrate that he understood these risks and was will to take these risks and leave against medical advice, he would have be at least repeat them back to me and he was unable or unwilling to. Patient at that time was agreeable to staying until the day shift to discuss with the daytime provider. Paged at 0500 due to patient again trying to leave against medical advice and having walked out to the elevator. Security was present. Risks above were again presented and patient was unable or unwilling to repeat them, stating the only risk of leaving was relapse. Discussed with patient that he lacked medical decision making capacity based on his inability to comprehend the risks of leaving. Patient then agreed to go back to his room as long as the alarm was left off his bed.
[2019-11-05 05:58] LABS: Albumin/Globulin Ratio 1.3 (1-3); Calcium 7.1 mg/dL (8.6-10.3); EGFR African American 114.7 (>60); EGFR Non-African American 94.8 (>60); Total Bilirubin 1.2 mg/dL (0.2-1.0)
[2019-11-05 06:42] LABS: Potassium 2.7 mmol/L (3.5-5.0)
[2019-11-05] MEDS ORDERED: Haloperidol INJ IV/IM* 5 MG/ML AMP IV SLOW PU ONE (06:58)
[2019-11-05 09:10] LABS: Magnesium 1.5 mg/dL (1.9-2.7)
[2019-11-05] MEDS: Insulin LISPRO* 1 UNITS UNIT SUBCUT SCH ×3 (09:28→17:28)
[2019-11-05] MEDS: KCL 20 MEQ/100 ML IVPREMIX* 20 MEQ/100 ML BAG IV SCH ×3 (09:29→15:04)
[2019-11-05] MEDS: Aspirin EC TAB* 81 MG TAB.EC PO SCH (09:37)
[2019-11-05] MEDS: BuPROPion XL* 150 MG TAB.XL PO SCH (09:37)
[2019-11-05] MEDS: Metoprolol Succinate XL TAB* 25 MG PO SCH (09:37)
[2019-11-05] MEDS: Folic Acid TAB* 1 MG PO SCH (09:38)
[2019-11-05] MEDS: Venlafaxine EXT RELEASE CAP* 75 MG PO SCH (09:39)
[2019-11-05] MEDS: Multivitamins/Minerals TAB PO SCH (09:39)
[2019-11-05] MEDS: amLODIPine TAB* 5 MG PO SCH (09:39)
[2019-11-05] MEDS: Pantoprazole TAB * 40 MG TAB PO SCH (09:39)
[2019-11-05] MEDS: Magnesium Oxide TAB* 400 MG PO SCH (09:39)
[2019-11-05] MEDS: Gabapentin CAP(*) 300 MG PO SCH ×2 (09:39→21:46)
[2019-11-05] MEDS: Nicotine PATCH 21 MG/24 HR* PATCH TRANSDERM SCH (09:40)
[2019-11-05] MEDS: PTO: Mirabegron (NF) 50 MG TAB PO SCH (09:40)
[2019-11-05] MEDS: FESOTERODINE 8 MG PO SCH (09:42)
[2019-11-05] MEDS: Thiamine TAB* 100 MG TAB PO SCH (10:00)
[2019-11-05] MEDS ORDERED: Magnesium Sulf 4 GM/100 ML IV* 4,000 MG/100 ML BAG IVPB ONE (10:30)
--- NOTE | 2019-11-05 11:08 | PN ---
Subjective Date of Service: 11/05/19 Interval History: Mr. Chun is feeling fine today. He reports sleeping intermittently overnight. He is hungry and is beginning to eat breakfast on my exam. Denies CP, SOB, N/V. He does admit to hallucinations, telling me that he was sitting on a piece of cardboard and felt like he was falling. Apparently, patient attempted to leave AMA multiple times overnight, but does not express any desire to leave this morning. There is a safety monitor at bedside. No concerns from nursing. Family History: Unchanged from Admission Social History: Unchanged from Admission Past Medical History: Unchanged from Admission Objective Active Medications: Amlodipine Besylate (Norvasc Tab*) 5 mg PO DAILY [facility] Aspirin (Aspirin Ec Tab*) 81 mg PO DAILY [facility] Atorvastatin Calcium (Lipitor*) 20 mg PO BEDTIME BARB Bupropion HCl (Wellbutrin Xl *) 300 mg PO DAILY [facility] Dextrose (D50w Syringe 50 Ml*) 12.5 gm IV PUSH .FOR FS < 60 - SS PRN FS < 60 Enoxaparin Sodium (Lovenox(*)) 40 mg SUBCUT Q24H BARB Fenofibrate (Tricor) 54 mg PO DAILY [facility] Fesoterodine Fumarate (Toviaz (Nf)) 8 mg PO DAILY [facility] Folic Acid (Folvite Tab*) 1 mg PO DAILY [facility] Gabapentin (Neurontin Cap(*)) 300 mg PO BID [facility] Potassium Chloride (Potassium Chloride 20 Meq/100 Ml Ivpremix*) 20 meq in 100 mls @ 50 mls/hr IV Q2H BARB Magnesium Sulfate (Magnesium Sulf 4 Gm/100 Ml Iv*) 4,000 mg in 100 mls @ 33.333 mls/hr IVPB ONCE ONE Insulin Human Lispro (Humalog*) 0 units SUBCUT AC BARB; Protocol Loperamide HCl (Imodium Cap*) 2 mg PO .SEE DIRECTIONS PRN DIARRHEA Lorazepam (Ativan Inj*) 0 - 3 mg IV PUSH .PER [facility] PROTOCOL BARB; Protocol Lorazepam (Ativan Inj*) 1 mg IV Q12H BARB; Taper Magnesium Oxide (Magox 400 Tab*) 400 mg PO DAILY [facility] Metoprolol Succinate (Toprol Xl Tab*) 37.5 mg PO DAILY [facility] Mirabegron (Myrbetriq (Nf)) 50 mg PO DAILY [facility] Multivitamins/Minerals (Theragran/Minerals Tab*) 1 tab PO DAILY [facility] Nicotine (Nicotine Patch 21 Mg/24 Hr*) 1 patch TRANSDERM DAILY [facility] Nitroglycerin (Nitroglycerin Tab 0.4 Mg*) 0.4 mg SL Q5M PRN ANGINA Ondansetron HCl (Zofran Inj*) 4 mg IV Q4H PRN NAUSEA/VOMITING Pantoprazole Sodium (Protonix Tab*) 40 mg PO DAILY [facility] Thiamine HCl (Vitamin B-1 Tab*) 100 mg PO DAILY [facility] Venlafaxine HCl (Effexor Xr Cap*) 75 mg PO DAILY [facility] Vital Signs - 8 hr 11/05/19 11/05/19 11/05/19 03:34 03:36 04:02 Temperature 98.4 F Pulse Rate 101 Respiratory 20 20 20 Rate Blood Pressure 133/84 (mmHg) O2 Sat by Pulse 98 Oximetry 11/05/19 11/05/19 11/05/19 06:29 08:00 09:26 Temperature 97.6 F Pulse Rate 108 Respiratory 20 22 20 Rate Blood Pressure 144/83 (mmHg) O2 Sat by Pulse 96 Oximetry 11/05/19 11/05/19 11/05/19 09:27 09:28 09:33 Temperature Pulse Rate Respiratory 20 20 22 Rate Blood Pressure (mmHg) O2 Sat by Pulse Oximetry Oxygen Devices in Use Now: None Appearance: Middle-aged male sitting in bed in NAD Ears/Nose/Mouth/Throat: Mucous Membranes Moist Neck: NL Appearance and Movements; NL JVP, Trachea Midline Respiratory: Symmetrical Chest Expansion and Respiratory Effort, Clear to Auscultation Cardiovascular: NL Sounds; No Murmurs; No JVD, RRR Abdominal: NL Sounds; No Tenderness; No Distention Extremities: No Edema Neurological: - - Oriented to self, place Lines/Tubes/Other Access: Clean, Dry and Intact Peripheral IV Nutrition: Taking PO's Result Diagrams: 11/04/19 06:25 11/05/19 04:50 Assess/Plan/Problems-Billing Assessment: Mr. Chun is a 59 yo M with PMH of CAD s/p stent, DM2, HTN, HLD, CVA, fatty liver, Guzman's esophagus, ETOH abuse, CHARLENE, depression, anxiety; who presented to the ED with c/o N/V and was found to have JUDIT and electrolyte abnormalities. - Patient Problems (1) Alcohol withdrawal Code(s): F10.239 - ALCOHOL DEPENDENCE WITH WITHDRAWAL, UNSPECIFIED Comment: - History of Korsakoff dementia - Patient expresses desire to abstain from alcohol - Last drink was day of admission - [facility] protocol - Continue folic acid, thiamine, multivitamin (2) Hypokalemia Code(s): E87.6 - HYPOKALEMIA Comment: - Replete and recheck later today (3) Hypertriglyceridemia Code(s): E78.1 - PURE HYPERGLYCERIDEMIA Comment: - Triglycerides 2600 - Unclear etiology, suspect essential as there is no clear history of familial - Continue fenofibrate (4) Nausea and vomiting Code(s): R11.2 - NAUSEA WITH VOMITING, UNSPECIFIED Comment: - Present on admission with abdominal pain and one additional episode overnight of emesis, now resolved - Suspect gastritis, viral vs alcohol-related - Tolerating soft diet - Continue Zofran PRN (5) Hypomagnesemia Code(s): E83.42 - HYPOMAGNESEMIA Comment: - Replete and recheck in AM (6) Transaminitis Code(s): R74.0 - NONSPEC ELEV OF LEVELS OF TRANSAMNS & LACTIC ACID DEHYDRGNSE Comment: - ALT and total bili at baseline, but alk phos acutely elevated - Unclear etiology, but there is a history of fatty liver and significant alcohol abuse - Continue to trend (7) JUDIT (acute kidney injury) Code(s): N17.9 - ACUTE KIDNEY FAILURE, UNSPECIFIED Comment: - Present on admission, now resolved - Secondary to dehydration (8) Diabetes Code(s): E11.9 - TYPE 2 DIABETES MELLITUS WITHOUT COMPLICATIONS Comment: - Pending A1c; most recent was 7.5% - Continue Lispro SS (9) CAD (coronary artery disease) Code(s): I25.10 - ATHSCL HEART DISEASE OF [place] CORONARY ARTERY W/O ANG PCTRS Comment: - Continue aspirin, atorvastatin, metoprolol (10) Hypertension Code(s): I10 - ESSENTIAL (PRIMARY) HYPERTENSION Comment: - Normotensive - Continue metoprolol, amlodipine (11) Anxiety and depression Code(s): F41.9 - ANXIETY DISORDER, UNSPECIFIED; F32.9 - MAJOR DEPRESSIVE DISORDER, SINGLE EPISODE, UNSPECIFIED Comment: - Continue bupropion, venlafaxine, lorazepam (12) Guzman esophagus Code(s): K22.70 - GUZMAN'S ESOPHAGUS WITHOUT DYSPLASIA Comment: - Continue pantoprazole (13) Neuropathy Code(s): G62.9 - POLYNEUROPATHY, UNSPECIFIED Comment: - Continue gabapentin (14) DVT prophylaxis Comment: - Lovenox (15) Full code status Code(s): Z78.9 - OTHER SPECIFIED HEALTH STATUS Comment: Status and Disposition: Inpatient. Anticipate d/c home when medically stable. Attending: Christi Nowak
[2019-11-05] MEDS: Enoxaparin(*) 40 MG/0.4 ML SYR SUBCUT SCH (15:04)
[2019-11-05 16:25] LABS: Magnesium 2.9 mg/dL (1.9-2.7); Potassium 3.1 mmol/L (3.5-5.0)
[2019-11-05] MEDS ORDERED: Potassium Chloride* LIQUID 20 MEQ/15 ML UDC PO ONE (17:00)
[2019-11-05] MEDS: Atorvastatin* 20 MG TAB PO SCH (21:46)
[2019-11-06 06:38] LABS: Albumin 3.9 g/dL (3.2-5.2); Albumin/Globulin Ratio 1.4 (1-3); Calcium 7.2 mg/dL (8.6-10.3); EGFR African American 146.9 (>60); EGFR Non-African American 121.4 (>60); Globulin 2.8 g/dL (2-4); Total Bilirubin 0.9 mg/dL (0.2-1.0); Total Protein 6.7 g/dL (6.4-8.9)
[2019-11-06] MEDS ORDERED: Potassium Chlor TAB* 20 MEQ TAB.ER PO ONE (07:08)
[2019-11-06] MEDS: FESOTERODINE 8 MG PO SCH (08:42)
[2019-11-06] MEDS: Nicotine PATCH 21 MG/24 HR* PATCH TRANSDERM SCH (08:42)
[2019-11-06] MEDS: amLODIPine TAB* 5 MG PO SCH (08:44)
[2019-11-06] MEDS: PTO: Mirabegron (NF) 50 MG TAB PO SCH (08:44)
[2019-11-06] MEDS: Multivitamins/Minerals TAB PO SCH (08:44)
[2019-11-06] MEDS: Magnesium Oxide TAB* 400 MG PO SCH (08:45)
[2019-11-06] MEDS: Gabapentin CAP(*) 300 MG PO SCH (08:45)
[2019-11-06] MEDS: Metoprolol Succinate XL TAB* 25 MG PO SCH (08:45)
[2019-11-06] MEDS: Folic Acid TAB* 1 MG PO SCH (08:45)
[2019-11-06] MEDS: Aspirin EC TAB* 81 MG TAB.EC PO SCH (08:45)
[2019-11-06] MEDS: BuPROPion XL* 150 MG TAB.XL PO SCH (08:45)
[2019-11-06] MEDS: Thiamine TAB* 100 MG TAB PO SCH (08:45)
[2019-11-06] MEDS: Venlafaxine EXT RELEASE CAP* 75 MG PO SCH (08:46)
[2019-11-06] MEDS: Pantoprazole TAB * 40 MG TAB PO SCH (08:46)
[2019-11-06] MEDS: KCL 20 MEQ/100 ML IVPREMIX* 20 MEQ/100 ML BAG IV SCH ×2 (08:48→11:52)
[2019-11-06] MEDS: Insulin LISPRO* 1 UNITS UNIT SUBCUT SCH ×2 (08:48→12:55)
[2019-11-06] MEDS: LORazepam INJ* 2 MG/ML 1 ML VIAL IV SCH (09:18)
[2019-11-06 12:05] VITALS: BP 124/73
--- NOTE | 2019-11-06 21:02 | DS ---
CC: Dr. Jigna Cuello * DISCHARGE SUMMARY: DATE OF ADMISSION: 11/03/19 DATE OF DISCHARGE: 11/06/19 PRIMARY CARE PROVIDER: Dr. Jigna Cuello. ATTENDING PHYSICIAN: Dr. Rey Wheeler.* (DICTATED BY MAGDALENA WILSON NP) PRIMARY DIAGNOSES: 1. Alcohol withdrawal. 2. Nausea and vomiting, suspected alcohol-related gastritis. 3. Hypertriglyceridemia. 4. Transaminitis. 5. Acute kidney injury. 6. Hypokalemia. 7. Hypomagnesemia. SECONDARY DIAGNOSES: 1. Diabetes mellitus type 2. 2. Coronary artery disease. 3. Hypertension. 4. Anxiety. 5. Depression. 6. Guzman's esophagus. 7. Diabetic neuropathy. STUDIES WHILE IN THE HOSPITAL: 1. EKG on 11/03/19 shows sinus tachycardia with a rate of 111. Appears consistent with previous EKG on file. 2. Gallbladder ultrasound on 11/03/19, reads as hepatomegaly with fatty infiltration of the liver. No sonographic features of acute cholecystitis. HISTORY OF PRESENT ILLNESS AND HOSPITAL COURSE: Mr. Chun is a 59-year-old male with past medical history of significant alcohol abuse; coronary artery disease; diabetes mellitus, type 2; hypertension; hyperlipidemia; CVA; fatty liver; Guzman's esophagus; essential tremor and obstructive sleep apnea who presented to the emergency room on 11/03/19 with complaints of nausea and vomiting. Please see the history and physical by MIRYAM Mckeon for complete summary of the events leading up to this hospitalization. In short, the patient reported approximately 1 day of nearly constant vomiting. He reported he was unable to tolerate any oral intake except for vodka and did admit to drinking approximately 2 pints of vodka per day. He was noted to have significant electrolyte abnormalities including hypomagnesemia, hypokalemia, and he did have an elevated creatinine. Because of these findings he was admitted by the hospitalist service. The patient was placed on IV fluids and electrolytes were repleted. He was noted to have transaminitis though he does seem to have a somewhat chronically elevated total bili and ALT. AST was noted to be elevated although this has also been elevated multiple times in the past and alk phos was elevated above baseline. Within approximately 1 day, his nausea and vomiting resolved. It was suspected that this was secondary to gastritis likely alcohol induced. The patient was stable for discharge on 11/04/19 though at that time we had a conversation about his alcohol abuse and he did indicate that he wanted to remain sober. So, the decision was made to keep the patient in the hospital for monitored alcohol withdrawal. He did have [id number] symptoms of alcohol withdrawal on 11/05/19 which mostly resolved that night and as of this morning on 11/06/19, alcohol withdrawal symptoms have resolved. The patient has not required any Ativan since the previous day. Potassium was repleted again today as it was noted to still be low at 3.0. Earlier in the hospital stay, the patient's triglycerides were checked and they were noted to be 2600. He was started on fenofibrate for this, which he has tolerated well. Social work has spoken with the patient about outpatient resources to maintain sobriety. At this point, he is not interested in pursuing any inpatient rehab. On exam, the patient is alert and oriented x4. He has no focal neurological deficits. He does have an essential tremor, which is at baseline. Heart has a regular rate and rhythm without murmurs, rubs, or gallops. Lungs are clear to auscultation without rhonchi, wheezes, or rubs. There is no edema. Abdomen is soft, nontender to palpation. Physical exam is otherwise benign. Mr. Chun is stable for discharge. Most recent vitals are as follows. Temp 98.0, heart rate 87, respiratory rate 18, oxygen saturation 99% on room air, blood pressure 124/73. DISCHARGE MEDICATIONS: New: 1. Fenofibrate 54 mg p.o. daily. 2. Magnesium oxide 400 mg p.o. daily. 3. Multivitamin 1 tab p.o. daily. 4. Thiamine 100 mg p.o. daily. Continued: 1. Amlodipine 5 mg p.o. daily. 2. Aspirin 81 mg p.o. daily. 3. Atorvastatin 20 mg p.o. at bedtime. 4. Bupropion XL 300 mg p.o. daily. 5. Toviaz 8 mg p.o. daily. 6. Folic acid 1 mg p.o. daily. 7. Gabapentin 300 mg p.o. b.i.d. 8. Lorazepam 0.5 mg p.o. b.i.d. p.r.n. anxiety. 9. Metoprolol succinate 37.5 mg p.o. daily. 10. Myrbetriq 50 mg p.o. daily. 11. Nitro 0.4 mg sublingual q.5 minutes p.r.n. angina. 12. Ondansetron 4 mg p.o. t.i.d. p.r.n. nausea and vomiting. 13. Pantoprazole 40 mg p.o. daily. 14. Sitagliptin 25 mg p.o. daily. 15. Venlafaxine 112.5 mg p.o. daily. DISCHARGE PLAN: Mr. Chun will be discharged home. Activity will be as tolerated. Diet will be heart healthy diabetic. Medications are noted above. The patient has been started on fenofibrate for his hypertriglyceridemia. He should also continue taking thiamine and a multivitamin due to his chronic alcohol abuse. He can continue with other usual medications as noted above and I have not made any further changes. Again, I did speak with the patient about the importance of abstaining from alcohol and he does feel as though he has appropriate outpatient resources. He will need to follow up with his primary care provider in the next 4 to 7 days. He should return to the emergency room or nearest hospital for any worsening of symptoms, shortness of breath, lightheadedness, dizziness, chest discomfort, high fevers, chills, night sweats , loss of consciousness, or any other worrisome signs or symptoms. DISCHARGE CONDITION: Stable. DISCHARGE DISPOSITION: Home. This is a summarized report of a complex medical history and hospital stay. For further details, please see the entire medical record. TIME SPENT: Approximately 45 minutes was spent on this discharge. MAGDALENA WILSON, [employer] [id number]/CPS #: [id number] [place]
== END 2019-11-06 14:45 | disposition home or self-care (01) | DRG 897 ==
LOC: ED 10:46 → MED 14:23
PROVIDERS: ADMIT Internal Medicine; ATTEND Internal Medicine
DX: F10.239 Alcohol dependence with withdrawal, unspecified (principal); N17.9 Acute kidney failure, unspecified; K29.20 Alcoholic gastritis without bleeding; I25.10 Atherosclerotic heart disease of native coronary artery without angina pectoris; E78.00 Pure hypercholesterolemia, unspecified; J44.9 Chronic obstructive pulmonary disease, unspecified; K21.9 Gastro-esophageal reflux disease without esophagitis; M19.90 Unspecified osteoarthritis, unspecified site; I10 Essential (primary) hypertension; E78.1 Pure hyperglyceridemia; H91.90 Unspecified hearing loss, unspecified ear; Y90.5 Blood alcohol level of 100-119 mg/100 ml; E11.42 Type 2 diabetes mellitus with diabetic polyneuropathy; K22.70 Barrett's esophagus without dysplasia; F41.9 Anxiety disorder, unspecified; F32.9 Major depressive disorder, single episode, unspecified; F17.210 Nicotine dependence, cigarettes, uncomplicated; G47.33 Obstructive sleep apnea (adult) (pediatric); E86.0 Dehydration; E78.5 Hyperlipidemia, unspecified; E83.42 Hypomagnesemia; R74.0 Nonspecific elevation of levels of transaminase and lactic acid dehydrogenase [LDH]; E87.6 Hypokalemia; G25.0 Essential tremor; K76.0 Fatty (change of) liver, not elsewhere classified; K74.60 Unspecified cirrhosis of liver; F43.10 Post-traumatic stress disorder, unspecified; Z86.73 Personal history of transient ischemic attack (TIA), and cerebral infarction without residual deficits; I25.2 Old myocardial infarction; Z88.2 Allergy status to sulfonamides; Z88.8 Allergy status to other drugs, medicaments and biological substances; Z86.74 Personal history of sudden cardiac arrest; Z97.4 Presence of external hearing-aid; Z95.5 Presence of coronary angioplasty implant and graft; Z79.82 Long term (current) use of aspirin; Z79.84 Long term (current) use of oral hypoglycemic drugs; Z79.899 Other long term (current) drug therapy
CPT/HCPCS: 36415; 76705; 80051; 80053; 80061; 80320; 83036; 83690; 83721; 83735; 84484; 85025; 85610; 93005; 96365; 96375; 96376; 99283; A9270-GY; G0480; J1630; J1650; J2060; J2405; J3411; J3475; J3480

== ENCOUNTER 2019-11-14 10:59 | Emergency (ER) | payer MEDICARE, MEDICAID ==
[2019-11-14 11:19] VITALS: BP 142/87
--- NOTE | 2019-11-14 11:37 | UC ---
Eye Complaint HPI - HPI Summary HPI Summary: 59yo male presenting with left eye pain and discharge x2 days. Patient states it began as minimal drainage that made it "theodore itchy and looked like he was looking through a sheet of plastic." States "much more draiange now." States it is painful to touch the eye. Denies photophobia. Denies exacerbated pain with eye movement. Denies fever and chills. Denies contact lens use. - History of Current Complaint Chief Complaint: UCEye Stated Complaint: EYE ISSUE Hx Obtained From: Patient Pain Intensity: 5 Pain Scale Used: 0-10 Numeric - Allergies/Home Medications Allergies/Adverse Reactions: Allergies Allergy/AdvReac Type Severity Reaction Status Date / Time sucralfate [From Carafate] Allergy Intermediate Rash Verified 11/14/19 11:21 acamprosate Allergy Hives Verified 11/14/19 11:21 donepezil Allergy Unknown Verified 11/14/19 11:21 Reaction Details Sulfa (Sulfonamide Allergy Itching Verified 11/14/19 11:21 Antibiotics) Home Medications: Home Medications Aspirin EC TAB* [Ecotrin EC Low Dose 81 MG*] 81 mg PO DAILY tab.ec 07/08/18 [ Rx Confirmed 11/14/19] Folic Acid TAB* [Folvite TAB*] 1 mg PO DAILY tab 07/08/18 [Rx Confirmed ] Metoprolol Succinate XL TAB* [Toprol XL TAB*] 37.5 mg PO DAILY 02/08/19 [ History Confirmed 11/14/19] Atorvastatin* [Lipitor 20 MG*] 20 mg PO BEDTIME 03/17/19 [History Confirmed 10/04] Bupropion XL* [Wellbutrin XL *] 300 mg PO DAILY 03/17/19 [History Confirmed 10/04] Gabapentin CAP(*) [Neurontin 300 CAP(*)] 300 mg PO BID 03/17/19 [History Confirmed 11/14/19] Pantoprazole TAB * [Protonix TAB*] 40 mg PO DAILY 03/17/19 [History Confirmed ] Venlafaxine EXT RELEASE CAP* [Effexor Xr CAP*] 75 mg PO DAILY 03/17/19 [History Confirmed 11/14/19] amLODIPine TAB* [Norvasc 5 mg TAB*] 5 mg PO DAILY 03/17/19 [History Confirmed ] LORazepam TAB(*) [Ativan 1 MG TAB (*)] 0.5 mg PO BID PRN MDD 2 tabs 06/18/19 [ History Confirmed 11/14/19] Fesoterodine (NF) [Toviaz (NF)] 8 mg PO DAILY 11/03/19 [History Confirmed ] Nitroglycerin TAB 0.4 MG* 0.4 mg SL Q5M PRN 11/03/19 [History Confirmed 11/14/19 ] SitaGLIPtin (NF) [Januvia (NF)] 25 mg PO DAILY 11/03/19 [History Confirmed 11/13] Venlafaxine HCl [Venlafaxine HCl ER] 37.5 mg PO DAILY 11/03/19 [History Confirmed 11/14/19] Thiamine TAB* [Vitamin B-1 TAB 100 MG*] 100 mg PO DAILY #30 tab 11/04/19 [Rx Confirmed 11/14/19] Ciprofloxacin 0.3% OPTH.DAMIAN* [Cipro 0.3% Opth*] 2 drop LEFT EYE Q4H 7 Days #1 btl 11/14/19 [Rx] PMH/Surg Hx/FS Hx/Imm Hx Endocrine History: Diabetes Cardiovascular History: Cardiac Disease, Hypertension, Myocardial Infarction Neurological History: CVA - Surgical History Surgical History: Yes Surgery Procedure, Year, and Place: cardiac catheterization w stent placement done at [facility] 1999., 11/17 [facility]- (left) shoulder rotator cuff repair, septoplasty, uvalectomy,BILATERAL CARPAL TUNNEL - Family History Known Family History: Positive: Cardiac Disease, Hypertension, Diabetes, Other - ETOH abuse - Social History Alcohol Use: Daily Alcohol Amount: 2 pints of vodka daily Substance Use Type: None Substance Use Comment - Amount & Last Used: pt has used this week, pt had a small amount today Smoking Status (MU): Light Every Day Tobacco Smoker Type: Cigarettes Amount Used/How Often: 1/2 pack daily Length of Time of Smoking/Using Tobacco: 30 years Have You Smoked in the Last Year: Yes Household Exposure Type: Cigarettes - Immunization History Most Recent Influenza Vaccination: 2019 Most Recent Tetanus Shot: with in 3 yrs Most Recent Pneumonia Vaccination: 2018 Review of Systems All Other Systems Reviewed And Are Negative: Yes Constitutional: Positive: Negative Eyes: Positive: Blurred Vision - left eye, Drainage - left eye, Eye Redness - left. Negative: Photophobia ENT: Positive: Negative Respiratory: Positive: Negative Cardiovascular: Positive: Negative Gastrointestinal: Positive: Negative Musculoskeletal: Positive: Negative Neurological/Mental Status: Positive: Negative Physical Exam - Summary Physical Exam Summary: Vital Signs Reviewed: Yes A+Ox3, no distress, well-appearing Eyes: left conjunctiva inflamed, PERLLA. EOM intact and full, copious amount of purulent drainage of left eye, mild left upper eyelid edema ENT: Hearing grossly normal Neck: Positive: Supple Respiratory: Positive: No respiratory distress, No accessory muscle use Cardiovascular: skin reflects adequate perfusion Musculoskeletal Exam: CARRASCO x 4 without difficulty Neurological: Positive: Alert Psychological: Positive: age appropriate behavior Skin: Positive: no rash, no ecchymosis Vital Signs: Initial Vital Signs Temp 97.5 F 11/14/19 11:14 Pulse 104 11/14/19 11:14 Resp 19 11/14/19 11:14 BP 142/87 11/14/19 11:14 Pulse Ox 99 11/14/19 11:14 Eye Complaint Course/Dx - Course Course Of Treatment: I treated the patient with cipro drops for bacterial conjunctivitis. I instructed him to follow up with opthalmology within the next two days or sooner if needed for recheck of symptoms and instructed to go to the ED with any new or worsening symptoms including increasing pain or fever. Patient voiced understanding and agreed with treatment plan. - Differential Dx/Diagnosis Differential Diagnosis/HQI/PQRI: Conjunctivitis, Uveitis Provider Diagnosis: Conjunctivitis, left eye Discharge ED - Sign-Out/Discharge Documenting (check all that apply): Patient Departure All imaging exams completed and their final reports reviewed: No Studies - Discharge Plan Condition: Stable Disposition: HOME Prescriptions: Ciprofloxacin 0.3% OPTH.DAMIAN* [Cipro 0.3% Opth*] 2 drop LEFT EYE Q4H 7 Days #1 btl Patient Education Materials: Conjunctivitis (ED) Referrals: Raz Pandey MD [Medical Doctor] - 2 Days Additional Instructions: Place 2-3 drops in the left eye every 4 hours for 7 days. Follow up with the opthalmology referral within the next two days to have symptoms rechecked. - Billing Disposition and Condition Condition: STABLE Disposition: Home
== END 2019-11-14 12:12 | disposition home or self-care (01) ==
LOC: UCEAST 10:59
DX: H10.9 Unspecified conjunctivitis (principal); F17.210 Nicotine dependence, cigarettes, uncomplicated; E11.9 Type 2 diabetes mellitus without complications; I10 Essential (primary) hypertension; I25.2 Old myocardial infarction; Z79.82 Long term (current) use of aspirin; Z79.84 Long term (current) use of oral hypoglycemic drugs; Z79.899 Other long term (current) drug therapy; Z88.8 Allergy status to other drugs, medicaments and biological substances; Z88.2 Allergy status to sulfonamides
CPT/HCPCS: 99212; G0463

== ENCOUNTER 2019-12-06 14:44 | Emergency (ER) | payer MEDICARE, MEDICAID ==
[2019-12-06] MEDS ORDERED: LORazepam TAB(*) 1 MG PO ONE (14:50)
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
[2019-12-06 14:53] VITALS: BP 100/74
--- OUTSIDE RECORDS SUMMARY | 2019-12-06 15:15 | XMS REPORT ---
:1960 Author Organization [facility] Care Team Providers Name Role Phone ESEQUIEL STILES Primary Care Physician Unavailable Allergies, Adverse Reactions, Alerts Allergy Code CodeSystem Reaction Severity Criticality Status Start Substance Date Moderate Medications Medication Medication Medication Start Stop Route Dose Status Fill Code CodeSystem Date Date Instructions lorazepam RxNorm 2019- oral 1 mg completed for 30 4-11 05-11 tablet day(s) lorazepam RxNorm 2019- oral 0.5 mg completed for 30 8-29 09-28 tablet day(s) Vistaril 852961 RxNorm 2018-09- oral 50 mg completed for 15 1-08 11-23 capsule day(s) lorazepam RxNorm 2018- oral 1 mg completed for 30 3-13 04-11 tablet day(s) hydroxyzine 308645 RxNorm 2018-09- oral 50 mg completed for 17 HCl 2-06 12-10 tablet day(s) lorazepam RxNorm 2018-09- oral 0.5 mg completed for 14 0-10 10-22 tablet day(s) hydroxyzine 528434 RxNorm 2018-09 oral 50 mg 1 active Take 1 tablet HCl 2-10 tablet by mouth once once a a day as day needed for 14 day(s) lorazepam RxNorm 2018-09- oral 0.5 mg active for 7 0-22 12-27 tablet day(s) gabapentin 637086 RxNorm oral 300 mg active for 30 8-19 capsule day(s) bupropion HCl 348102 RxNorm 2018- oral 150 mg completed for 30 7-09 10-07 tablet day(s) extended release 24 hr lorazepam RxNorm 2019- oral 0.5 mg completed for 14 8-29 10-22 tablet day(s) lorazepam RxNorm 2019- oral 1 mg completed for 30 5-13 06-12 tablet day(s) venlafaxine 120039 RxNorm 2018- 2019- oral 75 mg completed for 30 1-11 10- capsule,e day(s) xtended release 24hr hydroxyzine 281255 RxNorm 2018- 2019- oral 50 mg completed for 30 HCl 3-13 10-07 tablet day(s) venlafaxine 765863 RxNorm 2019- oral 75 mg active for 30 7- capsule,e day(s) xtended release 24hr lorazepam RxNorm 2019- oral 1 mg completed for 30 6-14 08-29 tablet day(s) bupropion HCl 084769 RxNorm 2018- 2019- oral 150 mg completed for 30 3-27 03- tablet day(s) extended release 24 hr gabapentin 170769 RxNorm 2018- 2019- oral 300 mg completed for 30 - 10-07 capsule day(s) bupropion HCl 368002 RxNorm oral 150 mg active for 30 6-18 tablet day(s) extended release 24 hr lorazepam RxNorm 2018- 2019- oral 0.5 mg completed for 30 8-13 05-29 tablet day(s) Problems Problem Name Code CodeSystem Alternate Alternate Start End Status Narrative Code CodeSystem Date Date Alcohol 85641045 SNOMED-CT 2018- Active dependence, 3-29 uncomplicated Recurrent 15633716 SNOMED-CT 2018- 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, current episode mild Post-traumatic 82108560 SNOMED-CT Active stress 3-29 disorder, unspecified Relevant diagnostic tests/laboratory data Narrative No Information Procedures Procedure Code CodeSystem Target Date of Status Service Device Device Device Name Site Procedure Delivery Code Name UID Location Psychotherap [id number] SNOMED-CT () 2019-03-23 complete Mental y, 45 88 d Health- minutes with [facility] patient when [facility] performed [facility] with an [employer], and [facility], service [id number] (List [id number] separately in addition to the code for primary procedure) Psychotherap [id number] SNOMED-CT () 2019-04-13 complete Mental y, 30 87 d Health- minutes with [facility] patient when [facility] performed [address] with an [facility], and [facility], service [id number] (List [id number] separately in addition to the code for primary procedure) Psychotherap [id number] SNOMED-CT () 2019-08-26 complete Mental y, 45 04 d Health- minutes with [address], [id number] [id number] Psychotherap [id number] SNOMED-CT () 2019-06-03 complete Mental y, 45 04 d Health- minutes with [address], [id number] Psychotherap [id number] SNOMED-CT () 2019-03-02 complete Mental y, 45 04 d Health- minutes with [address], [id number] Psychotherap [id number] SNOMED-CT () 2019-03-10 complete Mental y, 45 04 d Health- minutes with [address], [id number] Psychotherap [id number] SNOMED-CT () 2018-12-16 complete Mental y, 45 04 d Health- minutes with [address], [id number] Psychotherap [id number] SNOMED-CT () 2019-01-25 complete Mental y, 45 04 d Health- minutes with [address], [id number] [id number] Psychotherap [id number] SNOMED-CT () 2019-04-12 complete Mental y, 45 04 d Health- minutes with [address], [id number] [id number] Psychotherap [id number] SNOMED-CT () 2019-09-30 complete Mental y, 45 04 d Health- minutes with [address], [id number] Psychotherap [id number] SNOMED-CT () 2019-10-12 complete Mental y, 45 04 d Health- minutes with [address], [id number] [id number] Psychiatric [id number] SNOMED-CT () 2019-03-16 complete Mental diagnostic 85 d Health- evaluation [facility] with [facility] services [address], [place], [id number] Crisis [id number] SNOMED-CT () 2019-02-10 complete Mental intervention 9 d [facility] [address] [place], [place], [id number] [phone] Office or [id number] SNOMED-CT () 2019-04-13 complete Mental other 7 d Health- outpatient [facility] visit for [facility] the [address] [facility], established [id number] patient, [id number] which requires at least 2 of these 3 whitlock components: An expanded problem focused history; An expanded problem focused examination; Medical decision making of [facility] Office or [id number] SNOMED-CT () 2019-03-23 complete Mental other 7 d Health- outpatient [facility] visit for [address], established [id number] patient, [phone] which requires at least 2 of these 3 whitlock components: An expanded problem focused history; An expanded problem focused examination; Medical decision making of [facility] Office or [id number] SNOMED-CT () 2019-05-13 complete Mental other 6 d Health- outpatient [facility] visit for [address], established [id number] patient, [phone] which requires at least 2 of these 3 whitlock components: A problem focused history; A problem focused examination; Straightforw ana medical decision making. Counselin Office or [id number] SNOMED-CT () 2019-07-06 complete Mental other 6 d Health- outpatient [facility] visit for [facility] the [address] [place] [address], established [id number] patient, [phone] which requires at least 2 of these 3 whitlock components: A problem focused history; A problem focused examination; Straightforw ana medical decision making. Counselin Office or [id number] SNOMED-CT () 2019-09-16 complete Mental other 6 d Health- outpatient [facility] visit for [address], established [id number] patient, [id number] which requires at least 2 of these 3 whitlock components: A problem focused history; A problem focused examination; Straightforw ana medical decision making. Counselin Office or [id number] SNOMED-CT () 2019-08-05 complete Mental other 6 d Health- outpatient [facility] visit for [address], [place], established [id number] patient, [phone] which requires at least 2 of these 3 whitlock components: A problem focused history; A problem focused examination; Straightforw ana medical decision making. Counselin SNOMED-CT () 2019-07-30 complete Mental d [address], [id number] SNOMED-CT () 2019-08-20 complete Mental d [address], [id number] [phone] SNOMED-CT () 2019-05-04 complete Mental d [address], [id number] SNOMED-CT () 2019-04-05 complete Mental d [address], [id number] [phone] SNOMED-CT () 2019-02-[facility] Mental d [address], [id number] [id number] Encounters/Encounter Diagnoses Encounter Name Encounter Diagnosis Diagnosis Diagnosis Date of Service Code Code Name CodeSystem Diagnosis Delivery Location [facility] [id number] Recurrent SNOMED-CT 2019-10-12 Behavioral Individual 30 depressive Health min disorder, Clinic [address] [place], [place], [phone] Vital Signs No Information Social History Element Description Description Start End Code CodeSystem AdditionalInfo Date Date SexAssignedAtBirth Male 1960-0 M AdministrativeGender 9-10 Hospital Discharge Instructions Reason For Referral Medical Equipment FDA Assessments
--- OUTSIDE RECORDS SUMMARY | 2019-12-06 15:15 | XMS REPORT | Continuity of Care Document ---
:1960 External Reference #:[id number] Author Name Edson Beltran MD (transmitted by agent of provider Rhea Gramajo) Address [address] [place] [address] Care Team Providers Name Role Phone Jigna Cuello M.D. - Family Medicine Care Team Information [facility] [phone] Jigna Cuello M.D. - Family Medicine Care Team Information [facility] Psych[facility] Problems Active Problems Provider Date Benign essential hypertension Raciel Rm M.D., [facility], [facility] Onset: 2013 Chronic ischemic heart disease Raciel Rm M.D., [facility] Onset: 2013 Chest pain Raciel Rm M.D., [facility], [facility] Onset: 10/12/2013 Hyperlipidemia Raciel Rm M.D., [facility] Onset: 10/12/2013 Multi vessel coronary artery [...] diabetes mellitus Yissel Palmer M.D. Onset: 05/24/2019 Alcohol abuse Sandee Jovel MD Onset: 06/24/2018 Social History Type Date Description Comments Sex Unknown ETOH Use 07/06/2019 Has consumed alcohol Multiple relapses, in the past last one May 2019 ETOH Use none at the present time 09/13/19 Recreational Drug Use Denies Drug Use Tobacco Use Start: Unknown Light tobacco smoker (10 or fewer cigarettes/day) Recreational Drug Use Former Drug User Smoking Status Reviewed: 11/16/19 Light tobacco smoker (10 or fewer cigarettes/day) Exercise Type/Frequency Exercises regularly Exercise Type/Frequency Walks 5 times a week 5 mile a day and gym Allergies, Adverse Reactions, Alerts Active Allergies Reaction Severity Comments Date Donepezil nightmares, hallucinations Severe 10/12/2013 Acamprosate Calcium Contact dermatitis 07/23/2018 Inactive Allergies NKDA 01/03/2011 Medications Active Medications SIG Qnty Indications Ordering Date Provider Tylenol take 3 tabs 42tabs Sandee Jovel 10/19/2019 325mg Tablets every 6 hrs as MD needed for pain Januvia Take 1 tab by 30tabs E11.9 Sandee Jovel, 10/12/2019 25mg Tablets mouth once daily Accu-Check Glucose use once daily 1units E11.9 Sandee Jovel, 10/12/2019 Monitor as needed to MD Device check fs (Chloé's) Lancets Micro Thin use once daily 100units E11.9 Sandee Jovel, 2019 33G to check blood Thin 33G Misjuanita glucose Alcohol Pads use once daily 100units E11.9 Sandee Jovel, 10/12/2019 70% Pads just prior to MD checking fs Accu-Check Kelsie Chem use once daily 100units E11.9 Sandee Jovel, 10/12 Strips as needed to MD Misc check fs (Wegman's) Nicotine Polacrilex Week 1-6 take 1 72units Jigna Cuello MD 03/03/2019 4mg lozenge every Lozenges 1-2 hours as needed, not to exceed 5 lozenges in 6 hours Bupropion 2 tabs by mouth 60tabs Jigna Cuello MD 03/02/2019 Hydrochloride ER (XL) every morning 150mg Tablets ER 24HR Norvasc 1 by mouth every 90tabs I25.10 Yasmine Stevenson, 08/11/2018 5mg Tablets day [employer] Lorazepam pt takes 45tabs Jigna Cuello MD 07/28/2018 1mg Tablets 0.5mg---1 by mouth twice a day as needed for anxiety or isomnia Cpap Mask And use as directed 1units G47.33 Jigna Cuello MD 07/23/2018 Supplies Device Venlafaxine HCL 1 by mouth every Unknown 37.5mg day with a 75mg Tablets tab Myrbetriq one po daily Unknown 50mg Tablets ER 24HR Venlafaxine HCL ER 1 by mouth every 30caps Jigna Cuello MD 75mg day with a Caps ER 24HR 37.5mg Pantoprazole Sodium 1 by mouth every 90tabs Yissel day Elizabeth Palmer 40mg Tablets DR Christine 1 by mouth two 60caps Jigna Cuello [...] Dose 1 by mouth every 90units Michael Henderson NP 81mg day Chewtabs Metoprolol Succinate 1.5 tablets by 135tabs Yasmine Stevenson, ER mouth every day [employer] 25mg Tablets ER 24HR Nitrostat one sl q5min up QS Unknown 0.4mg Tablets to 3 doses prn Sub History Medications Disulfiram one po daily 30tabs F10.10 Jigna Cuello MD 07/06/2019 - 500mg 07/06/2019 Tablets Disulfiram one po daily 30tabs F10.10 Jigna Cuello MD 07/06/2019 - 250mg (pt not taking) 09/21/2019 Tablets Medications Administered in Office Medication SIG Qnty Indications Ordering Provider Date Depomedrol 40MG Edson Beltran MD 11/16/2019 Injection Technetium TC 99M Jeb Gerardo DO [facility] 08/04/2018 Tetrofosmin, Per Unit Dose Up To 40 Millicuries Injection Immunizations CPT Code Status Date Vaccine Lot # [id number] Given 09/22/2019 Pneumonia Vaccine [id number] Vital Signs Date Vital Result Comment 11/16/2019 3:59pm Height 67 inches 5'7" Weight 199.00 lb Heart Rate 93 /min BP Systolic 138 mmHg BP Diastolic 82 mmHg Respiratory Rate 22 /min Pain Level 8 O2 % BldC Oximetry 97 % BMI (Body Mass Index) 31.2 kg/m2 10/12/2019 9:14am Height 67 inches 5'7" Weight 199.00 lb Heart Rate 80 /min BP Systolic Sitting 134 mmHg BP Diastolic Sitting 83 mmHg O2 % BldC Oximetry 98 % BMI (Body Mass Index) 31.2 kg/m2 Results Test Acquired Date Facility Test Result H/L Range Note Laboratory test 11/03/2019 [facility] Potassium TNP mmol/L 3.5-5.0 [address] [place] [address] [phone] CBC Auto Diff 11/03/2019 [facility] White Blood 5.0 Normal 3.5 -10.[address] Count 10^3/[place] [address] [phone] Red Blood Count 4.79 10^6/uL Normal 4.18-5.48 Hemoglobin 15.5 g/dL Normal 14.0-18.0 Hematocrit 44 % Normal 42-52 Mean Corpuscular Volume 93 fL Normal 80-94 Mean Corpuscular Hemoglobin 32 pg High 27-31 Mean Corpuscular HGB Conc 35 g/dL Normal 31-36 Red Cell Distribution Width 15 % Normal 10-15 Platelet Count 152 10^3/uL Normal 150-450 Mean Platelet Volume 7.7 fL Normal 7.4-10.4 Abs Neutrophils 3.4 10^3/uL Normal 1.5-7.7 Abs Lymphocytes 1.1 10^3/uL Normal 1.0-4.8 Abs Monocytes 0.4 10^3/uL Normal 0-0.8 Abs Eosinophils 0.0 10^3/uL Normal 0-0.6 Abs Basophils 0.0 10^3/uL Normal 0-0.2 Abs Nucleated RBC 0.0 10^3/uL Granulocyte % 68.9 % Lymphocyte % 22.5 % Monocyte % 7.5 % Eosinophil % 0.8 % Basophil % 0.3 % Nucleated Red Blood Cells % 0.3 Inr/Protime 11/03/2019 [facility] Inr 1.34 High 0.82-1.[address] [place] [address] [phone] Laboratory test 11/03/2019 [facility] Troponin-I 0.02 <0.03 [address] (TnI) ng/[place] [address] [phone] Comp Metabolic 11/03/2019 [facility] Sodium 136 Normal 135- [address] mmol/[place] [address] [phone] Chloride 93 mmol/L Low 101-111 Co2 Carbon Dioxide 23 mmol/L Normal 22-32 Glucose 211 mg/dL High 70-100 Blood Urea Nitrogen 14 mg/dL Normal 6-24 Creatinine 1.36 mg/dL High 0.67-1.17 BUN/Creatinine Ratio 10.3 Normal 8-20 Calcium 8.1 mg/dL Low 8.6-10.3 Total Protein 7.9 g/dL Normal 6.4-8.9 Albumin 4.4 g/dL Normal 3.2-5.2 Globulin 3.5 g/dL Normal 2-4 Albumin/Globulin Ratio 1.3 Normal 1-3 Total Bilirubin 1.40 mg/dL High 0.2-1.0 Alkaline Phosphatase 134 U/L High 34-104 Alt 85 U/L High 7-52 Egfr Non- 53.6 >60 Egfr 64.9 >60 4 Potassium TNP mmol/L 3.5-5.0 5 Anion Gap 20 mmol/L High 2-11 Ast TNP U/L 13-39 6 Laboratory test 11/03/2019 [facility] Lipase 65 U/L Normal 11.0-82.[address] [place] [address] [phone] Alcohol 119 mg/dL High <10 Magnesium 1.6 mg/dL Low 1.9-2.7 Drug Abuse 10/12/2019 [facility] Urine Negative Cutoff: 10 W/Confirm, Ur [address] Alcohol mg/[place] [address] [phone] Urine Amphetamine Negative ng/mL 7 Urine Barbiturates Negative ng/mL 8 Urine Benzodiazepines Presumptive Posi <SEE NOTE> ng/mL Abnormal 9 Urine Cocaine Negative ng/mL 10 Urine Methadone Negative ng/mL Negative 11 Urine Opiates Negative ng/mL Negative 12 Urine Phencyclidine Negative ng/mL Cutoff: 25 Urine Tetrahydrocannabinol Negative ng/mL Cutoff: 50 13 Urine Benzodiazepines 10/12/2019 [facility] Urine Lorazepam 380 ng/mL [address] GC/[place] [address] [phone] Urine Nordiazepam GC/MS See Comment ng/mL 15 Urine Oxazepam GC/MS 275 ng/mL 16 Urine Temazepam GC/MS 278 ng/mL 17 Ur Oh Ethyl Flurazepam GC/MS Negative ng/mL 18 Ur 7 [place] Clonazepam GC/MS Negative ng/mL 19 Ur 7 [place] Flunitrazepam GC/MS Negative ng/mL Cutoff: 50 Ur Alpha Oh Alprazolam GC/MS Negative ng/mL 20 Ur Alpha Oh Triazolam GC/MS Negative ng/mL 21 Ur Benzodiazepine Interp Positive. 22 Laboratory test 09/22/2019 [facility] Hemoglobin A1c 7.0 5-7 finding Ethanol, Urine 09/22/2019 [facility] Ethanol-by GC-Fid 17 mg/dL Cutoff: [address] [place] [address] [phone] Urine Etoh Interpretation Positive. 23 Drug Abuse 09/22/2019 [facility] Urine Presumptive Abnormal Cutoff: 24 W/Confirm, Ur [address] Alcohol Posi <SEE 10 [place] [address] NOTE> mg/dL [phone] Urine Amphetamine Negative ng/mL 25 Urine Barbiturates Negative ng/mL 26 Urine Benzodiazepines Negative ng/mL 27 Urine Cocaine Negative ng/mL 28 Urine Methadone Negative ng/mL Negative 29 Urine Opiates Negative ng/mL Negative 30 Urine Phencyclidine Negative ng/mL Cutoff: 25 Urine Tetrahydrocannabinol Negative ng/mL Cutoff: 50 31 Urine Microalbumin 09/22/2019 [facility] Ur Microalbumin 40.3 mg /L Random [address] (mg/L) [place] [address] [phone] Urine Creatinine 59.44 mg/dL Urine Microalbumin/Creatinine 67.7 High <31 Basic Metabolic 09/22/2019 [facility] Sodium 141 mmol/L Normal 135-[address] [place], [place] [id number] [phone] Potassium 4.3 mmol/L Normal 3.5-5.0 Chloride 99 mmol/L Low 101-111 Co2 Carbon Dioxide 29 mmol/L Normal 22-32 Anion Gap 13 mmol/L High 2-11 Glucose 154 mg/dL High 70-100 Blood Urea Nitrogen 16 mg/dL Normal 6-24 Creatinine 0.96 mg/dL Normal 0.67-1.17 BUN/Creatinine Ratio 16.7 Normal 8-20 Calcium 9.5 mg/dL Normal 8.6-10.3 Egfr Non- 80.2 >60 Egfr 97.0 >60 32 Laboratory test 07/06/2019 [facility] Hemoglobin A1c 7.5 High 5-7 finding Laboratory test 06/25/2019 [facility] Surgical SEE RESULT [address] [place] [address] [phone] Laboratory test 06/25/2019 [facility] Point of Care 121 mg/dL High 70-100 [address] [place] [address] [phone] Laboratory test 06/21/2019 [facility] PSA Diagnostic 1.935 ng/ mL Normal 0-4.0 [address] [place] [address] [phone] 1 Specimen Hemolyzed. Result may not be valid. Unable to report test result due to hemolysis. 2 Standard intensity warfarin therapeutic range: 2.0-3.0 High intensity warfarin therapeutic range: 2.5-3.5 3 Troponin-I testing on Plasma Separator Tubes (PST) has a known false positive rate of 0.20-0.40%. All positive troponins reflex immediately to secondary confirmatory testing. Using the [employer] DxI 800 Access Immunoassay systems, the 99th percentile upper reference limit was demonstrated to be < 0.03 ng/mL. 4 Because ethnic data is not always [...] 5 Kidney failure <15 (or dialysis) 5 Specimen Hemolyzed. Result may not be valid. Unable to report test result due to hemolysis. 6 Unable to report test result due to hemolysis. 7 REFERENCE VALUE Cutoff: 500 8 REFERENCE VALUE Cutoff: 200 9 Presumptive Positive Drug confirmation to follow. Presumptive Positive means that the screening method is positive, but the test needs to be run by a confirmatory method before being finalized. REFERENCE VALUE Cutoff: 100 10 REFERENCE VALUE Cutoff: 150 11 REFERENCE VALUE Cutoff: 300 12 REFERENCE VALUE Cutoff: 300 13 ADDITIONAL INFORMATION This report is intended for use in clinical monitoring or management of patients. It is not intended for use in employment-related testing. This test has been modified from the invasive manager's instructions. Its performance characteristics were determined by [facility] in a manner consistent with CLIA requirements. This test has not been cleared or approved by the U.S. Food and Drug Administration. Test Performed by: [facility] [address] [place] [address] Contract Graphic Designer: Raymon Self M.D. Ph.D.; CLIA# [id number] REFERENCE VALUE Cutoff: 100 15 Unknown interfering substance present; unable to obtain results. REFERENCE VALUE Cutoff: 100 16 REFERENCE VALUE Cutoff: 100 17 REFERENCE VALUE Cutoff: 100 18 REFERENCE VALUE Cutoff: 100 19 REFERENCE VALUE Cutoff: 100 20 REFERENCE VALUE Cutoff: 100 21 REFERENCE VALUE Cutoff: 100 22 ADDITIONAL INFORMATION This report is intended for use in clinical monitoring and management of patients. It is not intended for use in employment-related testing. This test was developed and its performance characteristics determined by [facility] in a manner consistent with CLIA requirements. This test has not been cleared or approved by the U.S. Food and Drug Administration. Test Performed by: [facility] [place] [address] Contract Graphic Designer: Raymon Self M.D. Ph.D.; CLIA# [id number] 23 ADDITIONAL INFORMATION This report is intended for use in clinical monitoring and management of patients. It is not intended for use in employment-related testing. This test was developed and its performance characteristics determined by [facility] in a manner consistent with CLIA requirements. This test has not been cleared or approved by the U.S. Food and Drug Administration. Test Performed by: [facility] [place] [address] Contract Graphic Designer: Raymon Self M.D. Ph.D.; CLIA# [id number] Presumptive Positive Drug confirmation to follow. Presumptive Positive means that the screening method is positive, but the test needs to be run by a confirmatory method before being finalized. 25 REFERENCE VALUE Cutoff: 500 26 REFERENCE VALUE Cutoff: 200 27 REFERENCE VALUE Cutoff: 100 28 REFERENCE VALUE Cutoff: 150 29 REFERENCE VALUE Cutoff: 300 30 REFERENCE VALUE Cutoff: 300 31 ADDITIONAL INFORMATION This report is intended for use in clinical monitoring or management of patients. It is not intended for use in employment-related testing. This test has been modified from the invasive manager's instructions. Its performance characteristics were determined by [facility] in a manner consistent with CLIA requirements. This test has not been cleared or approved by the U.S. Food and Drug Administration. Test Performed by: [facility] [place] [address] Contract Graphic Designer: Raymon Self M.D. Ph.D.; CLIA# [id number] 32 Because ethnic data is not always readily [...] 15-29 5 Kidney failure <15 (or dialysis) 33 SEE RESULT BELOW Name: SIM CHUN : [address]: Patricia Fontana MD Acct: [id number] Unit: [id number] AGE: 59 Location: ENDO Re06/25/19 SEX: M Status: DEP REF SPEC: [id number] AYLA: 06/25/19- SUBM DR: Patricia Glover MD REQ: [id number] RECD: 06/25/19 STATUS: DEJA AGARWAL DR: Jigna [...] CONTINUED ON NEXT PAGE DEPARTMENT OF PATHOLOGY, [address] [place] [address] Tommie Grajeda M.D. Director [facility] # [id number] CLINICAL HISTORY History of polyps POST-OPERATIVE DIAGNOSIS [...] CONTINUED ON NEXT PAGE DEPARTMENT OF PATHOLOGY, [address] [place] [address] Tommie Grajeda M.D. Director [facility] # [id number] Signed by and Reported on: Tommie Grajeda MD 1211 END OF REPORT DEPARTMENT OF PATHOLOGY, [address] [place] [address] Tommie Grajeda M.D. Director [facility] # [id number] 34 Material Cutter: [id number] Serum levels of PSA measured using the Edy Meena DXI Hybritech immunoassay should not be interpreted as absolute evidence of the presence or absence of disease. The PSA value should be used in conjunction with other pertinent clinical diagnostic procedures. The values obtained with different assay methods or kits cannot be used interchangeably. Procedures Date Code Description Status 11/17/2019 26662 ECHO Transthoracic, Real-Time 2D With Doppler And Completed Color Flow 11/17/2019 51969 ECHO Transthoracic, Real-Time 2D With Doppler And Completed Color Flow 11/16/2019 61447 Inject/Drain Joint/Bursa Major W/O US Completed 11/03/2019 54808 Holter Monitor Review (24 hr)dr murphy & jericho only Completed 10/21/2019 31752 ECG Monitor/Recording W/Visual Superimposition Completed Scanning 10/21/2019 46039 ECG Monitor/Recording W/Visual Superimposition Completed Scanning 09/13/2019 82536 EKG Tracing & Interpretation Completed 06/25/2019 [id number] Colonoscopy Completed 12/03/2018 [id number] Diabetic Retinal Eye Exam Completed 08/18/2018 131291843 Diabetic Foot Exam Completed 08/05/2018 [id number] Diabetic Retinal Eye Exam Completed 02/22/2000 [id number] Diabetic Retinal Eye Exam Completed Medical Devices Description No Information Available Encounters Type Date Location Provider Dx Diagnosis Office Visit 11/16/2019 [facility] Edson Woodard S46.012A Strain of 3:00p at Felisha Beltran MD musc/tend the rotator cuff of left shoulder, init Office Visit 11/06/2019 [facility] Reece, F10.239 Alcohol dependence 1:35p Assoc,pc [employer] with withdrawal, Hospitalists unspecified N17.9 Acute kidney failure, unspecified E87.6 Hypokalemia E83.42 Hypomagnesemia E78.1 Pure hyperglyceridemia R74.0 Nonspec elev of levels of transamns & lactic acid dehydrgnse R11.2 Nausea with vomiting, unspecified Office Visit 11/05/2019 [facility] Reece, F10.239 Alcohol 1:34p Assoc,pc [employer] dependence with Hospitalists withdrawal, unspecified E87.6 Hypokalemia E78.1 Pure hyperglyceridemia E83.42 Hypomagnesemia R74.0 Nonspec elev of levels of transamns & lactic acid dehydrgnse Office Visit 11/04/2019 [facility] Cornelia Reece, F10.239 Alcohol 1:29p Assoc,pc [employer] dependence with Hospitalists withdrawal, unspecified E78.1 Pure hyperglyceridemia E83.42 Hypomagnesemia R74.0 Nonspec elev of levels of transamns & lactic acid dehydrgnse Office Visit 11/03/2019 [facility] Annie N17.9 Acute kidney 1:28p Assoc,MIRYAM Damian failure, Hospitalists unspecified R11.2 Nausea with vomiting, unspecified R10.9 Unspecified abdominal pain Office Visit 10/12/2019 9:30a [facility] Sandee M25.512 Pain in left Medicine - Ccmob MD Med shoulder E11.9 Type 2 diabetes mellitus without complications I10 Essential (primary) hypertension F10.11 Alcohol abuse, in remission Office Visit 09/22/2019 2:00p [facility] Sandee E11.9 Type 2 diabetes Temitope - MD Med mellitus without Ccmob complications I10 Essential (primary) hypertension W00.9xxD Unspecified fall due to ice and snow, subsequent encounter Z23 Encounter for immunization F32.9 Major depressive disorder, single episode, unspecified Office Visit 09/14/2019 11:30a [facility] Sandee W00.9xxA Unspecified fall Medicine Murphy Jovel MD due to ice and Ccmob snow, initial encounter E11.9 Type 2 diabetes mellitus without complications S49.92xA Unsp injury of left shoulder and upper arm, init encntr Office Visit 09/13/2019 1:20p [facility] Yasmine Thuman, I10 Essential (primary) [employer] hypertension F10.10 Alcohol abuse, uncomplicated I25.10 Athscl heart disease of [place] coronary artery w/o ang pctrs E78.5 Hyperlipidemia, unspecified R00.0 Tachycardia, unspecified Office Visit 07/06/2019 11:40a [facility] Jigna Cuello, E11.9 Type 2 diabetes Temitope Arrington MD mellitus without Ccmob complications I10 Essential (primary) hypertension F10.10 Alcohol abuse, uncomplicated Z23 Encounter for immunization Office Visit 06/04/2019 1:30p [facility] Leroy R20.2 Paresthesia of [facility] Alejandra Arriola.Anton skin R25.1 Tremor, unspecified Z86.73 Prsnl hx of TIA (TIA), and cereb infrc w/o resid deficits F32.9 Major depressive disorder, single episode, unspecified G62.9 Polyneuropathy, unspecified Assessments Date Code Description Provider 11/17/2019 I25.5 Ischemic cardiomyopathy Anju Phelps M.D. 11/17/2019 I25.5 Ischemic cardiomyopathy Traveling ECHO 1 11/17/2019 R00.0 Tachycardia, unspecified Anju Phelps M.D. 11/17/2019 R00.0 Tachycardia, unspecified Traveling ECHO 1 11/17/2019 F10.19 Alcohol abuse with unspecified Anju Phelps M.D. alcohol-induced disorder 11/17/2019 F10.19 Alcohol abuse with unspecified Traveling ECHO 1 alcohol-induced disorder 11/16/2019 S46.012A Strain of muscle(s) and tendon(s) of the Edson Beltran MD rotator cuff of left shoulder, initial encounter 11/06/2019 F10.239 Alcohol dependence with withdrawal, Cornelia Reece, [employer] unspecified 11/06/2019 N17.9 Acute kidney failure, unspecified Cornelia Reece, [employer] 11/06/2019 E87.6 Hypokalemia Cornelia Reece, [employer] 11/06/2019 E83.42 Hypomagnesemia Cornelia Reece, [employer] 11/06/2019 E78.1 Pure hyperglyceridemia Cornelia Reece, [employer] 11/06/2019 R74.0 Nonspecific elevation of levels of Cornelia Reece, [employer] transaminase and lactic acid dehydrogenase [LDH] 11/06/2019 R11.2 Nausea with vomiting, unspecified Cornelia Reece, [employer] 11/05/2019 F10.239 Alcohol dependence with withdrawal, Cornelia Reece, [employer] unspecified 11/05/2019 E87.6 Hypokalemia Cornelia Reece, [employer] 11/05/2019 E78.1 Pure hyperglyceridemia Cornelia Reece, [employer] 11/05/2019 E83.42 Hypomagnesemia Cornelia Reece, [employer] 11/05/2019 R74.0 Nonspecific elevation of levels of Cornelia Reece, [employer] transaminase and lactic acid dehydrogenase [LDH] 11/04/2019 F10.239 Alcohol dependence with withdrawal, Cornelia Reece, [employer] unspecified 11/04/2019 E78.1 Pure hyperglyceridemia Cornelia Reece, [employer] 11/04/2019 E83.42 Hypomagnesemia Cornelia Reece, [employer] 11/04/2019 R74.0 Nonspecific elevation of levels of Cornelia Reece, [employer] transaminase and lactic acid dehydrogenase [LDH] 11/03/2019 N17.9 Acute kidney failure, unspecified MIRYAM Mckeon 11/03/2019 R11.2 Nausea with vomiting, unspecified MIRYAM Mckeon 11/03/2019 R10.9 Unspecified abdominal pain MIRYAM Mckeon 11/03/2019 R00.0 Tachycardia, unspecified Anju Phelps M.D. 11/03/2019 I49.3 Ventricular premature depolarization nAju Phelps M.D. 10/21/2019 R00.0 Tachycardia, unspecified Anju Phelps M.D. 10/21/2019 R00.0 Tachycardia, unspecified Nurse Visit cc 10/21/2019 I49.3 Ventricular premature depolarization Anju Phelps M.D. 10/21/2019 I49.3 Ventricular premature depolarization Nurse Visit cc 10/12/2019 M25.512 Pain in left shoulder Sandee Jovel MD 10/12/2019 E11.9 Type 2 diabetes mellitus without Sandee Jovel MD complications 10/12/2019 I10 Essential (primary) hypertension Sandee Jovel MD 10/12/2019 F10.11 Alcohol abuse, in remission Sandee Jovel MD 09/22/2019 E11.9 Type 2 [...] M.D. 09/13/2019 I10 Essential (primary) hypertension Yasmine Stevenson NP 09/13/2019 F10.10 Alcohol abuse, uncomplicated Yasmine Stevenson, [employer] 09/13/2019 I25.10 Atherosclerotic heart disease of [place] Yasmine Stevenson, HOANG coronary artery with 09/13/2019 E78.5 Hyperlipidemia, unspecified Yasmine Stevenson, [employer] 09/13/2019 R00.0 Tachycardia, unspecified Yasmine Stevenson, [employer] 07/06/2019 E11.9 Type 2 diabetes mellitus without [...] 06/04/2019 G62.9 Polyneuropathy, unspecified Leroy Arriola, N.P. Plan of Treatment Future Appointment(s):12/03/2019 2:20 pm - Audrey Yoon MD at [facility]12/28/2019 9:45 am - Edson Beltran MD at [facility] at [id number]/16/2019 - Edson Beltran, MDS46.012A Strain of muscle(s) and tendon(s) of the rotator cuff of left shoulder, initial encounterNew Therapy:Physical TherapyFollow up:Follow up: 6 weeks Functional Status Description No Information Available Mental Status Description No Information Available Referrals Refer to Dr Reason for Referral Status Appt Date Nghia Cook MD Sent 11/04/2019 [address] [facility] [place] [address] [phone] [facility] Sent [address] [place] [address] [phone]
--- OUTSIDE RECORDS SUMMARY | 2019-12-06 15:15 | XMS REPORT | Continuity of Care Document ---
:1960 External Reference #:[id number] Author Name Traveling ECHO 1 (transmitted by agent of provider Jennifer Chapin) Address [address] [place] [address] Care Team Providers Name Role Phone Jigna Cuello M.D. - Family Medicine Care Team Information Trapper Bird [phone] Jigna Cuello M.D. - Family Medicine Care Team Information Trapper Bird [phone] Problems Active Problems Provider Date Benign essential hypertension Raciel Rm M.D., [facility] Onset: 2013 Chronic ischemic heart disease Raciel Rm M.D., [facility] Onset: 2013 Chest pain Raciel Rm M.D., [facility] Onset: 10/12/2013 Hyperlipidemia Raciel Rm M.D., [facility] Onset: 10/12/2013 Multi vessel coronary artery [...] 2019 33G to check blood Thin 33G Misc glucose Alcohol Pads use once daily 100units [...] I25.10 Yasmine Stevenson 08/11/2018 5mg Tablets day DELI MANAGER Lorazepam pt takes 45tabs Jigna Cuello MD [...] 1 by mouth every 90units Michael Henderson, HOANG 81mg day Chewtabs Metoprolol Succinate 1.5 tablets by 135tabs Yasmine Stevenson, ER mouth every day DELI MANAGER 25mg Tablets ER 24HR Nitrostat one sl [...] Date Technetium TC 99M Jeb Gerardo DO [facility] 08/04/2018 Tetrofosmin, Per Unit Dose Up To 40 Millicuries Injection Immunizations CPT Code Status Date Vaccine Lot # [id number] Given 09/22/2019 Pneumonia Vaccine [id number] Vital Signs Date Vital Result Comment 11/16/2019 [...] Result H/L Range Note Laboratory test 11/03/2019 [facility] Potassium TNP mmol/L 3.5-5.[address] [place] [address] [phone] CBC Auto Diff 11/03/2019 [facility] White Blood 5.0 Normal 3.5 -10.[address] Count 10^3/[place] [address] [phone] Red Blood Count 4.79 10^6/uL Normal 4.18-5.48 [...] Red Blood Cells % 0.3 Inr/Protime 11/03/2019 [facility] Inr 1.34 High 0.82-1.[address] [place] [address] [phone] Laboratory test 11/03/2019 [facility] Troponin-I 0.02 <0.03 [address] (TnI) ng/[place] [address] [phone] Comp Metabolic 11/03/2019 [facility] Sodium 136 Normal 135- [address] mmol/[place] [address] [phone] Chloride 93 mmol/L Low 101-111 Co2 Carbon [...] TNP U/L 13-39 6 Laboratory test 11/03/2019 [facility] Lipase 65 U/L Normal 11.0-82.[address] [place] [address] [phone] Alcohol 119 mg/dL High <10 Magnesium 1.6 mg/dL Low 1.9-2.7 Drug Abuse 10/12/2019 [facility] Urine Negative Cutoff: 10 W/Confirm, Ur [address] Alcohol mg/[place] [address] [phone] Urine Amphetamine Negative ng/mL 7 Urine Barbiturates Negative ng/mL 8 Urine Benzodiazepines Presumptive Posi <SEE NOTE> ng/mL Abnormal 9 Urine Cocaine Negative ng/mL 10 Urine Methadone Negative ng/mL Negative 11 Urine Opiates Negative ng/mL Negative 12 Urine Phencyclidine Negative ng/mL Cutoff: 25 Urine Tetrahydrocannabinol Negative ng/mL Cutoff: 50 13 Urine Benzodiazepines 10/12/2019 [facility] Urine Lorazepam 380 ng/mL [address] GC/[place] [address] [phone] Urine Nordiazepam GC/MS See Comment ng/mL 15 [...] Benzodiazepine Interp Positive. 22 Laboratory test 09/22/2019 [facility] Hemoglobin A1c 7.0 5-7 finding Ethanol, Urine 09/22/2019 [facility] Ethanol-by GC-Fid 17 mg/dL Cutoff: [address] [place] [address] [phone] Urine Etoh Interpretation Positive. 23 Drug Abuse 09/22/2019 [facility] Urine Presumptive Abnormal Cutoff: 24 W/Confirm, Ur [address] Alcohol Posi <SEE [address] [place] [address] NOTE> mg/dL [phone] Urine Amphetamine Negative ng/mL 25 Urine Barbiturates Negative ng/mL 26 Urine Benzodiazepines Negative ng/mL 27 Urine Cocaine Negative ng/mL 28 Urine Methadone Negative ng/mL Negative 29 Urine Opiates Negative ng/mL Negative 30 Urine Phencyclidine Negative ng/mL Cutoff: 25 Urine Tetrahydrocannabinol Negative ng/mL Cutoff: 50 31 Urine Microalbumin 09/22/2019 [facility] Ur Microalbumin 40.3 mg /L Random [address] (mg/L) [place] [address] [phone] Urine Creatinine 59.44 mg/dL Urine Microalbumin/Creatinine 67.7 High <31 Basic Metabolic 09/22/2019 [facility] Sodium 141 mmol/L Normal 135-[address] [place] [address] [phone] Potassium 4.3 mmol/L Normal 3.5-5.0 Chloride 99 mmol/L Low 101-111 Co2 Carbon Dioxide 29 mmol/L Normal 22-32 Anion Gap 13 mmol/L High 2-11 Glucose 154 mg/dL High 70-100 Blood Urea Nitrogen 16 mg/dL Normal 6-24 Creatinine 0.96 mg/dL Normal 0.67-1.17 BUN/Creatinine Ratio 16.7 Normal 8-20 Calcium 9.5 mg/dL Normal 8.6-10.3 Egfr Non- 80.2 >60 Egfr 97.0 >60 32 Laboratory test 07/06/2019 [facility] Hemoglobin A1c 7.5 High 5-7 finding Laboratory test 06/25/2019 [facility] Surgical SEE RESULT [address] [place] [address] [phone] Laboratory test 06/25/2019 [facility] Point of Care 121 mg/dL High 70-100 [address] [place] [address] [phone] Laboratory test 06/21/2019 [facility] PSA Diagnostic 1.935 ng/ mL Normal 0-4.0 [address] [place] [address] [phone] 1 Specimen Hemolyzed. Result may not be valid. Unable to report test result due to hemolysis. 2 Standard intensity warfarin therapeutic range: 2.0-3.0 High intensity warfarin therapeutic range: 2.5-3.5 3 Troponin-I testing on Plasma Separator Tubes (PST) has a known false positive rate of 0.20-0.40%. All positive troponins reflex immediately to secondary confirmatory testing. Using the [employer]led[employer] DxI 800 Access Immunoassay systems, the 99th [...] This test has been modified from the tying in machine operator's instructions. Its performance characteristics were determined by [facility] in a manner consistent with CLIA requirements. This test has not been cleared or approved by the U.S. Food and Drug Administration. Test Performed by: [facility] [address] [place] [address] Entry Level Paralegal: Raymon Self M.D. Ph.D.; CLIA# [id number] REFERENCE VALUE Cutoff: 100 15 Unknown [...] developed and its performance characteristics determined by [facility] in a manner consistent with CLIA requirements. This test has not been cleared or approved by the U.S. Food and Drug Administration. Test Performed by: [facility] [place] [address] Entry Level Paralegal: Raymon Self M.D. Ph.D.; CLIA# [id number] 23 ADDITIONAL INFORMATION This report is intended for use in clinical monitoring and management of patients. It is not intended for use in employment-related testing. This test was developed and its performance characteristics determined by [facility] in a manner consistent with CLIA requirements. This test has not been cleared or approved by the U.S. Food and Drug Administration. Test Performed by: [facility] [place] [address] Entry Level Paralegal: Raymon Self M.D. Ph.D.; CLIA# [id number] 24 Presumptive Positive Drug confirmation to follow. [...] This test has been modified from the tying in machine operator's instructions. Its performance characteristics were determined by [facility] in a manner consistent with CLIA requirements. This test has not been cleared or approved by the U.S. Food and Drug Administration. Test Performed by: [facility] [place] [address] [place] [address] Entry Level Paralegal: Raymon Self M.D. Ph.D.; CLIA# [id number] 32 Because ethnic data is not always [...] 33 SEE RESULT BELOW Name: SIM CHUN DOB: [address]: Patricia Fontana MD Acct: [id number] Unit: [id number] AGE: 59 Location: ENDO Re06/25/19 SEX: M Status: DEP REF SPEC: [id number] AYLA: 06/25/19- DR: Patricia Glover MD REQ: [id number] RECD: 06/25/19 STATUS: DEJA AGARWAL DR: Jigna [...] ON NEXT PAGE DEPARTMENT OF PATHOLOGY, [address] [place] [address] Tommie Grajeda M.D. Director [facility] # [id number] CLINICAL HISTORY History of polyps POST-OPERATIVE DIAGNOSIS [...] ON NEXT PAGE DEPARTMENT OF PATHOLOGY, [address] [place] [address] Tommie Grajeda M.D. Director [facility] # [id number] Signed by and Reported on: Tommie Grajeda MD 1211 END OF REPORT DEPARTMENT OF PATHOLOGY, [address] [place] [address] Tommie Grajeda M.D. Director [facility] # [id number] Career Placement Specialist: [id number] Serum levels of PSA measured using the Edy Meena DXI Hybritech immunoassay should not be interpreted as absolute evidence of the presence or absence of disease. The PSA value should be used in conjunction with other pertinent clinical diagnostic procedures. The values obtained with different assay methods or kits cannot be used interchangeably. Procedures Date Code Description Status 11/17/2019 67490 ECHO Transthoracic, Real-Time 2D With Doppler And Completed Color Flow 11/17/2019 90738 ECHO Transthoracic, Real-Time 2D With Doppler And Completed Color Flow 11/16/2019 27769 Inject/Drain Joint/Bursa Major W/O US Completed 11/03/2019 06377 Holter Monitor Review (24 hr)dr murphy & jericho only Completed 10/21/2019 59026 ECG Monitor/Recording W/Visual Superimposition Completed Scanning 10/21/2019 54064 ECG Monitor/Recording W/Visual Superimposition Completed Scanning 09/13/2019 09364 EKG Tracing & Interpretation Completed 06/25/2019 [id number] Colonoscopy Completed 12/03/2018 [id number] Diabetic Retinal Eye Exam Completed 08/18/2018 [id number] Diabetic Foot Exam Completed 08/05/2018 128059172 Diabetic Retinal Eye Exam Completed 02/22/2000 [id number] Diabetic Retinal Eye Exam Completed Medical Devices Description No Information Available Encounters Type Date Location Provider Dx Diagnosis Office Visit 11/06/2019 [facility] Reece, F10.239 Alcohol dependence 1:35p Assoc,pc DELI MANAGER with withdrawal, Hospitalists unspecified N17.9 Acute kidney failure, unspecified E87.6 Hypokalemia E83.42 Hypomagnesemia E78.1 Pure hyperglyceridemia R74.0 Nonspec elev of levels of transamns & lactic acid dehydrgnse R11.2 Nausea with vomiting, unspecified Office Visit 11/05/2019 [facility] Reece, F10.239 Alcohol 1:34p Assoc,pc DELI MANAGER dependence with Hospitalists withdrawal, unspecified E87.6 Hypokalemia E78.1 Pure hyperglyceridemia E83.42 Hypomagnesemia R74.0 Nonspec elev of levels of transamns & lactic acid dehydrgnse Office Visit 11/04/2019 [facility] Reece, F10.239 Alcohol 1:29p Assoc,pc DELI MANAGER dependence with Hospitalists withdrawal, unspecified E78.1 Pure hyperglyceridemia E83.42 Hypomagnesemia R74.0 Nonspec elev of levels of transamns & lactic acid dehydrgnse Office Visit 11/03/2019 [facility] N17.9 Acute kidney 1:28p Assoc,pc MIRYAM Singleton failure, Hospitalists unspecified R11.2 Nausea with vomiting, unspecified R10.9 Unspecified abdominal pain Office Visit 10/12/2019 9:30a [facility] [place]ee M25.512 Pain in left Medicine - Ccmob MD Med shoulder E11.9 Type 2 diabetes mellitus without complications I10 Essential (primary) hypertension F10.11 Alcohol abuse, in remission Office Visit 09/22/2019 2:00p [facility] [place] E11.9 Type 2 diabetes Temitope Jovel MD mellitus without Ccmob complications I10 Essential (primary) hypertension W00.9xxD Unspecified fall due to ice and snow, subsequent encounter Z23 Encounter for immunization F32.9 Major depressive disorder, single episode, unspecified Office Visit 09/14/2019 11:30a [facility] [place] W00.9xxA Unspecified fall Temitope Jovel MD due to ice and Ccmob snow, initial encounter E11.9 Type 2 diabetes mellitus without complications S49.92xA Unsp injury of left shoulder and upper arm, init encntr Office Visit 09/13/2019 1:20p [facility] Yasmine Thuman, I10 Essential (primary) DELI MANAGER hypertension F10.10 Alcohol abuse, uncomplicated I25.10 Athscl heart disease [facility] coronary artery w/o ang pctrs E78.5 Hyperlipidemia, unspecified R00.0 Tachycardia, unspecified Office Visit 07/06/2019 11:40a [facility] Jigna Cuello, E11.9 Type 2 diabetes Medicine - mellitus without Ccmob complications I10 Essential (primary) hypertension F10.10 Alcohol abuse, uncomplicated Z23 Encounter for immunization Office Visit 06/04/2019 1:30p [facility] Leroy R20.2 Paresthesia of [facility] Flako, N.P. skin R25.1 Tremor, unspecified [...] 11/17/2019 F10.19 Alcohol abuse with unspecified Anju Winslow, M.D. alcohol-induced disorder 11/17/2019 F10.19 Alcohol abuse with unspecified Traveling ECHO 1 alcohol-induced disorder 11/16/2019 S46.012A Strain of muscle(s) and tendon(s) of the Edson Beltran MD rotator cuff of left shoulder, initial encounter 11/06/2019 F10.239 Alcohol dependence with withdrawal, Cornelia Reece, DELI MANAGER unspecified 11/06/2019 N17.9 Acute kidney failure, unspecified Cornelia Reece, DELI MANAGER 11/06/2019 E87.6 Hypokalemia Cornelia Reece, DELI MANAGER 11/06/2019 E83.42 Hypomagnesemia Cornelia Reece, DELI MANAGER 11/06/2019 E78.1 Pure hyperglyceridemia Cornelia Reece, DELI MANAGER 11/06/2019 R74.0 Nonspecific elevation of levels of Corneila Reece, DELI MANAGER transaminase and lactic acid dehydrogenase [LDH] 11/06/2019 R11.2 Nausea with vomiting, unspecified Cornelia Reece, DELI MANAGER 11/05/2019 F10.239 Alcohol dependence with withdrawal, Cornelia Reece, DELI MANAGER unspecified 11/05/2019 E87.6 Hypokalemia Cornelia Reece, DELI MANAGER 11/05/2019 E78.1 Pure hyperglyceridemia Cornelia Reece, DELI MANAGER 11/05/2019 E83.42 Hypomagnesemia Cornelia Reece, DELI MANAGER 11/05/2019 R74.0 Nonspecific elevation of levels of Cornelia Reece, DELI MANAGER transaminase and lactic acid dehydrogenase [LDH] 11/04/2019 F10.239 Alcohol dependence with withdrawal, Cornelia Reece, DELI MANAGER unspecified 11/04/2019 E78.1 Pure hyperglyceridemia Cornelia Reece, DELI MANAGER 11/04/2019 E83.42 Hypomagnesemia Cornelia Reece, DELI MANAGER 11/04/2019 R74.0 Nonspecific elevation of levels of Cornelia Reece, DELI MANAGER transaminase and lactic acid dehydrogenase [LDH] 11/03/2019 N17.9 Acute kidney failure, unspecified MIRYAM Mckeon 11/03/2019 R11.2 Nausea with vomiting, unspecified MIRYAM Mckeon 11/03/2019 R10.9 Unspecified abdominal pain MIRYAM Mckeon 11/03/2019 R00.0 Tachycardia, unspecified Anju Phelps M.D. 11/03/2019 I49.3 Ventricular premature depolarization Anju Phelps M.D. 10/21/2019 R00.0 Tachycardia, unspecified Anju [...] NP 09/13/2019 I25.10 Atherosclerotic heart disease [facility] Yasmine Stevenson NP coronary artery with 09/13/2019 [...] Leroy Arriola, N.P. Plan of Treatment Future Appointment(s):12/28/2019 9:45 am - Edson Beltran MD at [facility] [place]/16/2019 - Edson Beltran, MDS46.012A Strain of muscle(s) and tendon(s) of the rotator cuff of left shoulder, initial encounterNew Therapy:Physical TherapyFollow up:Follow up: 6 weeks Functional Status Description No Information Available Mental Status Description No Information Available Referrals Refer to Reason for Referral Status Appt Date Nghia Cook MD Sent 11/04/2019 [address] [place], [place] [id number] [phone] [facility] Sent [address] [place] [address] [phone]
--- OUTSIDE RECORDS SUMMARY | 2019-12-06 15:15 | XMS REPORT | Summary of Care ---
:1960 Author Organization [facility] Address [address] [facility] [place] [address] Care Team Providers Name Role Phone None, [place] Primary Care Provider Unavailable Reason for Visit Reason Comments Trauma Auth/Cert Status Reason Specialty Diagnoses / Procedures Referred By Contact Referred To Contact Encounter Details Date Type Department Care Team Description 12/01/2019 - Emergency [facility] 6 Geo Sotelo MD Observation 12/02/2019 [address] [facility] [place] [address] [place] [address] [phone] Allergies Active Allergy Reactions Severity Noted Date Comments Bactrim Ds Unknown Reaction 12/01/2019 documented as of this encounter (statuses as of 12/03/2019) Medications Medication Sig Dispensed Refills Start Date End Date Status foliC acid 1 MG Oral Tab Take 1 mg by 0 Active mouth DAILY. Multiple Take 1 Tab by 0 Active Vitamins-Minerals mouth DAILY. (MULTIVITAL-M) Oral Tab Aspirin 81 MG Oral Tab Take 81 mg by 0 Active mouth DAILY. pantoprazole (PROTONIX) Take 40 mg by 0 Active 40 MG Oral Tab EC mouth DAILY. venlafaxine (EFFEXOR) 75 Take 75 mg by 0 Active MG Oral Tab mouth DAILY. BuPROPion HCl, Smoking Take 150 mg by 0 Active Deter, (BUPROBAN) 150 MG mouth DAILY. Oral TABLET SR 12 HR thiamine (VITAMIN B1) Take 100 mg by 0 Active 100 MG Oral Tab mouth DAILY. Metoprolol Tartrate 37.5 Take 37.5 mg by 0 Active MG Oral Tab mouth. atorvastatin (LIPITOR) Take 20 mg by 0 Active 20 MG Oral Tab mouth DAILY. gabapentin (NEURONTIN) Take 300 mg by 0 Active 300 MG Oral Cap mouth TWICE DAILY. metFORMIN (GLUCOPHAGE) Take 500 mg by 0 Active 500 MG Oral Tab mouth TWICE DAILY. hydrALAZINE (APRESOLINE) Take 50 mg by 0 Active 50 MG Oral Tab mouth DAILY. LORazepam (ATIVAN) 1 MG Take 1 mg by 0 Active Oral Tab mouth TWO TIMES DAILY NEEDED. amLodipine (NORVASC) 5 Take 5 mg by 0 Active MG Oral Tab mouth DAILY. documented as of this encounter (statuses as of 12/03/2019) Active Problems Problem Noted Date Fall down stairs 12/01/2019 documented as of this encounter (statuses as of 12/03/2019) Social History Tobacco Use Types Packs/Day Years Used Date Never Assessed Sex Assigned at Date Recorded Not on file documented as of this encounter Last Filed Vital Signs Vital Sign Reading Time Taken Comments Blood Pressure 134/78 12/02/2019 3:40 PM EDT Pulse 90 12/02/2019 3:40 PM EDT Temperature 36.2 12/02/2019 3:40 PM C (97.2 EDT F) Respiratory Rate 20 12/02/2019 3:40 PM EDT Oxygen Saturation 97% 12/02/2019 3:40 PM EDT Inhaled Oxygen Concentration - - Weight 88.4 kg (194 lb 12.8 oz) 12/01/2019 11:15 PM EDT Height 170.2 cm (5' 7") 12/01/2019 11:15 PM EDT Body Mass Index 30.51 12/01/2019 11:15 PM EDT documented in this encounter Discharge Summaries Annie Kimble MD - 12/02/2019 4:52 PM EDT [facility] [place]. [id number] Discharge Summary Patient ID: Sim Chun [id number] 59-y.o. 1960 Admission date: 12/01/2019 Discharge date: 12/02/2019 Admitting Physician: Geo Haywood MD Indication for Admission: Fall down stairs Principal Diagnosis: Fall down stairs Other medical problems managed in the hospital: Patient Active Problem List Diagnosis ? Fall down stairs Discharged Condition: good Hospital Course: Sim Chun is a 59-y.o. male presented as a trauma alert on 12/01/19 after a fall down 12-15 stairs. There were no external signs of trauma upon arrival. He had an elevated blood alcohol of 0.30 and was admitted for observation. CT of the cervical spine upon arrival showed a possible C1-C2 subluxation and he was maintained in a Maxwell collar. Repeat head CT was negative for any fracture or subluxation and C-collar was subsequently cleared. He was assessed by Physical and Occupational therapy during his admission who recommended Short TermRehab. The patient, however, refused STR and will be discharged to home. He will be discharged with resources for alcohol abuse as well. ? Upon discharge Sim Chun is tolerating a regular diet without nausea/emesis , pain is controlledon oral medications, he is ambulating independently, and he is voiding spontaneously. Sim Chun has been encouraged to follow up with his PCP in the next week regarding his alcohol use. He may follow up with the Trauma Surgery clinic as needed. Consults: CONSULT TO DIRECTOR OF INFECTION PREVENTION/CASE MANAGEMENT Treatments: analgesia DVT Prophylaxis Procedures: Ct Chest Abdomen Pelvis Trauma Result Date: 12/01/2019 CT Chest 1. No consolidation, effusion or edema. 2. Old rib and left inferior scapular fractures. No acute fracture or pneumothorax. CT Abdo Pelvis IMPRESSION: 1. The parenchymal organs are intact without laceration. 2. Enlarged and fatty liver. 3.No acute fracture. Ct Spine Cervical Result Date: 12/02/2019 No evidence of fracture or subluxation is seen. Degenerative changes of the cervical spine as described above. 2. Mild reversal of cervical lordosis is seen. Urgency: Routine. This is a routine medicalimaging report. Ct Spine Cervical Result Date: 12/01/2019 Impression: No displaced fracture within the limitations secondary to motion artifact. C1-C2 rotatory subluxation, unclear if this is a true finding or if secondary to neck positioning/spasm. Recommendcorrelation with physical exam for clarification. Multilevel degenerative changes, associated canal/foraminal narrowing, suboptimally assessed by CT. Ct Head Without Iv Contrast Result Date: 12/01/2019 1.No definite intracranial hemorrhage within the limitations secondary to motion artifact. Operations: None Medications: Current Discharge Medication List CONTINUE these medications which have NOT CHANGED Aspirin 81 MG Tabs Dose: 81 mg Refills: 0 Take 81 mg by mouth DAILY. atorvastatin 20 MG Tabs Commonly known as: LIPITOR Dose: 20 mg Refills: 0 Take 20 mg by mouth DAILY. BUPROBAN 150 MG Tb12 Generic drug: BuPROPion HCl (Smoking Deter) Dose: 150 mg Refills: 0 Take 150 mg by mouth DAILY. foliC acid 1 MG Tabs Dose: 1 mg Refills: 0 Take 1 mg by mouth DAILY. gabapentin 300 MG Caps Commonly known as: NEURONTIN Dose: 300 mg Refills: 0 Take 300 mg by mouth TWICE DAILY. hydrALAZINE 50 MG Tabs Commonly known as: APRESOLINE Dose: 50 mg Refills: 0 Take 50 mg by mouth DAILY. LORazepam 1 MG Tabs Commonly known as: ATIVAN Dose: 1 mg Refills: 0 Take 1 mg by mouth TWO TIMES DAILY NEEDED. metFORMIN 500 MG Tabs Commonly known as: GLUCOPHAGE Dose: 500 mg Refills: 0 Take 500 mg by mouth TWICE DAILY. Metoprolol Tartrate 37.5 MG Tabs Dose: 37.5 mg Refills: 0 Take 37.5 mg by mouth. MULTIVITAL-M Tabs Dose: 1 Tab Refills: 0 Take 1 Tab by mouth DAILY. NORVASC 5 MG Tabs Generic drug: amLodipine Dose: 5 mg Refills: 0 Take 5 mg by mouth DAILY. pantoprazole 40 MG Tbec Commonly known as: PROTONIX Dose: 40 mg Refills: 0 Take 40 mg by mouth DAILY. thiamine 100 MG Tabs Commonly known as: VITAMIN B1 Dose: 100 mg Refills: 0 Take 100 mg by mouth DAILY. venlafaxine 75 MG Tabs Commonly known as: EFFEXOR Dose: 75 mg Refills: 0 Take 75 mg by mouth DAILY. Oxygen or Positive Pressure Devices: none Patient Instructions: Activity/Restrictions: Activity as tolerated Skin/Wound Care: Non-applicable Discharge Diet: Regular Diet Special Instructions: Please follow up with your PCP regarding alcohol use. Please call the Trauma Surgery clinic if you have any questions or concerns. No orders of the defined types were placed in this encounter. Total duration of time spent: 20 minutes. Provider Signature: Annie Kimble MD Associated attestation - Tommie Guzman MD - 12/03/2019 11:30 [facility] Supervising MD Documentation Date of Service: 12/02/19 B# [id number] I saw and evaluated the patient. Discussed with resident and agree with the resident's findings andplan as documented in the resident's note. Additional Comments: Stable for discharge Tommie Guzman MD Supervising Physiciandocumented in this encounter Discharge Instructions Kelly Whyte RN - 12/02/2019Provider's Instructions Reason for Admission or Diagnosis:Fall from height of greater than 3 feet Activity/Restrictions: Activity as tolerated Skin/Wound Care: Non-applicable Discharge Diet: Regular Diet Special Instructions: Please follow up with your PCP regarding alcohol use. Please call the Trauma Surgery clinic if you have any questions or concerns. Discharge Provider: Annie Kimble MD Attending: Geo Haywood MD Time: 16:50 Nurse's Instructions Problems to report to your Physician: Excessive pain or discomfort Fever > 100.5 degrees Difficulty breathing Increase or smell in wound drainage Skin/Wound Care: Skin intact on discharge: None Medical Equipment/Supplies to help you at home: none Reminded patient that they can VIEW, DOWNLOAD and TRANSMIT their hospital information in [facility]: yes http://www.SueEasy.net/sites/default/files/What%20the%20patient%20will% 20see%[email or web address]_0.pdf Smoking: If you or your caregiver smoke, we recommend that you quit. For smoking cessation help, please callthe National Quit Line at . QUESTIONS OR CONCERNS AFTER DISCHARGE Dietitian Home Care Needs *Please Return Patient Satisfaction Survey* documented in this encounter Progress Notes Irvin Freeman MD - 12/02/2019 6:07 PM [facility] [address] Tra[facility] Interval Progress Note Date of Service: 12/02/2019 Patient: Sim Crocker #: [id number] Attending: GEO HAYWOOD MD ,MD I called Dr Merritt from Neurosurgery regarding the questionable C1-C2 rotatory subluxation read onpatient's c-spine CT 12/01/2019 in the setting of neck pain and cervical spine tenderness on exam this morning. He recommended repeat CT c-spine. Repeat CT shows no subluxation. Patient was re-evaluated in the afternoon and stated that his neck pain had subsided. He denied midline neck tenderness on exam. C-spine was cleared. Discussed with Dr Guzman (attending surgeon) Author: Irvin Freeman MD Raz Tyler MD - 12/02/2019 9:31 AM EDT [facility] [address] Tertiary Survey Note Date of Service: 12/02/2019 Patient: Sim Chun B #: [id number] Attending: GEO HAYWOOD MD ,MD This patient is not intoxicated, sedated or has an impaired mental status to a degree that limits a reliable physical exam. I have reviewed ALL of the patient's laboratory data as well as ALL of the patient's imaging studies in addition the official radiology reads by a [facility] staff radiologist. I have reviewed the patient's full history and prior physical examinations( s) and completed a head-to-toe physical examination on my own. My additional findings include: none No additional Injury: All injuries are documented on the patient's injury list sheet, and any additional injuries I have discovered during this tertiary survey are also documented there. I have discussed the findings of this tertiary survey with the attending surgeon supervising Dr. Thomas hurtado. Author: Raz Santiago MD Raz Tyler MD - 12/02/2019 6:38 AM EDT [facility] [address] Trauma/Acute Care Surgery Progress Note Date of Service: 12/02/2019 Date of Admission: 12/01/19 Patient: Sim Chun B #: [id number] Attending: GEO HAYWOOD MD ,MD Hospital Day: 2 Subjective Afebrile, hemodynamically stable. Attempted to leave overnight AMA but was amenable after discussion. On exam this morning, patient is resting comfortably , pain is well-controlled. Patient complains ofneck pain and overall discomfort. Frustrated with hospitalization and c-collar, but cooperative withcontinued discussion this morning during rounds. Objective Blood pressure (!) 151/91, pulse 87, temperature 97.6 F (36.4 C), temperature source Oral, resp. rate 18, height 5' 7" (1.702 m), weight 194 lb 12.8 oz (88.4 kg), SpO2 94 %. Physical Exam General: awake, alert and oriented, NAD, diaphoretic HEENT: Normocephalic. No masses, lesions, tenderness or abnormalities Lungs: unlabored Heart: normal Abd: soft, non-distended, non-tender MSK: Neck: cervical spine tender to palpation at midline. Tremulous upper extremities. No deformities, edema, or skin discoloration. Skin: clean, dry, intact, no wounds or erythema. Medications: Current Facility-Administered Medications Medication ? acetaminophen (TYLENOL) tablet 1,000 mg ? docusate sodium (COLACE) capsule 100 mg ? enoxaparin (LOVENOX) injection 30 mg/0.3 mL 30 mg ? magnesium hydroxide (MILK OF MAGNESIA) 400 MG/5ML oral suspension 30 mL ? OXYcodone (OXY-IR,OXY-FAST) immediate release tablet 5 mg Labs: Recent Labs 12/01/19 1645 WBC 6.72 HGB 13.3* HCT 39.5* PLAT 164 Recent Labs 12/01/19 1645 NA 137 K 3.4* CL 97* CO2 27 GLUCOSE 204* BUN 16 CREATININE 1.0 CALCIUM 8.1* Imaging/Studies: Ct Spine Cervical 12/01/2019 Impression: No displaced fracture within the limitations secondary to motion artifact. C1-C2 rotatory subluxation, unclear if this is a true finding or if secondary to neck positioning/spasm. Recommendcorrelation with physical exam for clarification. Multilevel degenerative changes, associated canal/foraminal narrowing, suboptimally assessed by CT. Signed by Jason Alexandra on 12/01/2019 6:09 PM Assessment Sim Chun is a 59-year old male who fell 12-15 feet while intoxicated on aspirin with possible loss of consciousness with no external signs of trauma and imaging negative for any injuries. Unable toclear c-spine due to continued pain and tenderness. ? Injury Complex: possible C2-C3 subluxation, EtOH intoxication Plan: Unable to clear C-Collar Benign tertiary exam Consult Neurosurgery for evaluation of C-spine Acute Alcohol Withdrawal Syndrome, H/o alcohol use CIWA assessments Begin tapering with Valium regimen Acute alcohol Intoxication - GIORGIO 0.3 Pain control: Mi Tylenol, Oxy PRN PT/OT/SW per trauma protocol Wean O2 as tolerated DVT Prophylaxis: Lovenox GI Prophylaxis: not indicated Nutrition: NPO Grimaldo remains because: No Grimaldo present Disposition: continue floor status Author: Raz Santiago MD 12/02/2019 10:21 Associated attestation - Tommie Guzman MD - 12/02/2019 10:33 [facility] Supervising MD Documentation Date of Service: 12/02/19 B# [id number] I saw and evaluated the patient. Discussed with resident and agree with the resident's findings andplan as documented in the resident's note. Additional Comments: We will obtain neurosurgical consultation to further evaluation the possible subluxation, as he still has neck pain. He is high risk for ETOH withdrawal, and we will begin CIWA with Valium. Tommie Guzman MD Supervising PhysicianKenney Last MD - 12/01/2019 8:27 PM EDT [id number] [facility] EMERGENCY DEPARTMENT Event Note Name: Sim Chun : 1960 Age: 59-y.o. SUBJECTIVE: Sim Chun is a 59-y.o. male who fell on stairs earlier who is admitted under observation per the trauma protocol as the patient has intellectual disability and is intoxicated. The patient states that he is uncomfortable laying in the bed and that he is hungry and wants some pain medicine. He also wants to leave AGAINST MEDICAL ADVICE at this time. After discussion with the patient the importance of him to stay for further evaluation once he is no longer intoxicated he is agreeable. I replaced his Maxwell cervical collar for which the patient had removed and explained the importance ofkeeping in place until the a.m. We have added some as needed medications for pain. And have instructed the patient that he is allowed to have clear liquids this evening. At this time the patient is agreeable to staying until the a.m. Kenney Last MD Discussed with Dr. Freemantronically signed by Geo Haywood MD at 2019 10:28 AM EDTdocumented in this encounter Plan of Treatment Health Maintenance Due Date Last Done Comments CT Colonography 1960 Cologuard 1960 Colonoscopy 1960 Colorectal Cancer Screening 1960 FIT/FOBT 1960 Sigmoidoscopy 1960 DTaP/Tdap/Td Vaccines (1 - Tdap) 1971 DEPRESSION SCREENING 1972 HIV SCREENING 1975 HEPATITIS C SCREENING 2000 ZOSTER IMMUNIZATION SERIES (1 of 2) 2010 INFLUENZA VACCINE (#1) 2019 HEPATITIS A IMMUNIZATION SERIES Aged Out No longer eligible based on patient's age to complete this topic HPV IMMUNIZATION SERIES Aged Out No longer eligible based on patient's age to complete this topic MENINGOCOCCAL VACCINE IMM Aged Out No longer eligible based on patient's age to complete this topic PNEUMOCOCCAL 0-64 YRS Aged Out No longer eligible based on patient's age to complete this topic documented as of this encounter Procedures Procedure Name Priority Date/Time Associated Comments Diagnosis CT SPINE CERVICAL YU 12/02/2019 11:32 Results for this AM EDT procedure are in the results section. URINE DRUG SCREEN STAT 12/01/2019 6:07 Results for this PM EDT procedure are in the results section. URINALYSIS (LAB) WITH STAT 12/01/2019 6:07 Results for this REFLEX CULTURE PM EDT procedure are in the results section. CT CHEST ABDOMEN PELVIS STAT 12/01/2019 5:12 Trauma Results for this TRAUMA PM EDT procedure are in the results section. CT SPINE CERVICAL STAT 12/01/2019 5:06 Trauma Results for this PM EDT procedure are in the results section. CT HEAD WITHOUT IV STAT 12/01/2019 5:04 Trauma Results for this CONTRAST PM EDT procedure are in the results section. CBC WITH DIFFERENTIAL STAT 12/01/2019 4:45 Results for this PM EDT procedure are in the results section. TYPE AND SCREEN STAT 12/01/2019 4:45 Results for this PM EDT procedure are in the results section. RAINBOW DRAW GOLD TOP STAT 12/01/2019 4:45 PM EDT RAINBOW DRAW RED TOP STAT 12/01/2019 4:45 Results for this PM EDT procedure are in the results section. COMPREHENSIVE METABOLIC STAT 12/01/2019 4:45 Results for this PANEL PM EDT procedure are in the results section. AMYLASE STAT 12/01/2019 4:45 Results for this PM EDT procedure are in the results section. ALCOHOL LEVEL, MEDICAL STAT 12/01/2019 4:45 Results for this PM EDT procedure are in the results section. PROTHROMBIN TIME STAT 12/01/2019 4:45 Results for this PM EDT procedure are in the results section. PARTIAL THROMBOPLASTIN STAT 12/01/2019 4:45 Results for this TIME PM EDT procedure are in the results section. documented in this encounter Results CT SPINE CERVICAL (12/02/2019 11:32 AM EDT) Specimen Impressions Performed At There is the abdomen No evidence of fracture or subluxation is seen. Degenerative changes of the cervical spine as described above. 2. Mild reversal of cervical lordosis is seen. Urgency: Routine. This is a routine medical imaging report. Recommendation: If clinically indicated flexion and extension series would be helpful Signed by Florencai Oconnell MD, A, FCPS on 12/02/2019 11:53 AM Narrative Performed At Procedure(s): CT SPINE CERVICAL Date of service: 12/02/2019 11:18 AM Provided clinical information: 59 years, Male, "Fall from 10 feet, CT c-spine concerning for C1-C2 rotatory subluxation. Please re-eval for C1-C2 Sublux" Procedure and materials: Standard protocol. Contrast: None. Comparison studies: CT of the neck 12/01/2019. There is no roll form operator film available for the exam however there appears to be motion artifact with head turning to the right side, causing artifact. CT scan of the Cervical spine without contrast: Helical imaging is acquired from base of the skull to thoracic inlet and data is reformatted at 3 mm increments with MPR reformation performed in coronal and sagittal plane. Findings: Posterior cranial fossa grossly appearing unremarkable. Vertebral height and alignment grossly appears well maintained. No evidence of fracture or subluxation is seen. Spinal canal is of normal caliber and spinal cord does not show any abnormal CT density. Loss of intervertebral disc height is a C4-5 and C5-6 with marginal osteophytes causing ventral impression of the thecal sac and mild central spinal canal stenosis is seen. Facet joint hypertrophy is seen throughout the cervical spinal. CT does not adequately assess canal patency with regard to epidural or disc disease. No definite intraspinal abnormality is noted.. No gross perivertebral soft tissue abnormality is seen. Airway appears patent. Hyoid bone and thyroid cartilage also do not show any focal abnormality. Limited evaluation of the vascular structures are grossly appears unremarkable. No focal lung apical abnormality is seen. Procedure Note Interface, Rad Results - 12/02/2019 11:55 AM EDT Procedure(s): CT SPINE CERVICAL Date of service: 12/02/2019 11:18 AM Provided clinical information: 59 years, Male, "Fall from 10 feet, CT c-spine concerning for C1-C2 rotatory subluxation. Please re-eval for C1-C2 Sublux" Procedure and materials: Standard protocol. Contrast: None. Comparison studies: CT of the neck 12/01/2019. There is no roll form operator film available for the exam however there appears to be motion artifact with head turning to the right side, causing artifact. CT scan of the Cervical spine without contrast: Helical imaging is acquired from base of the skull to thoracic inlet and data is reformatted at 3 mm increments with MPR reformation performed in coronal and sagittal plane. Findings: Posterior cranial fossa grossly appearing unremarkable. Vertebral height and alignment grossly appears well maintained. No evidence of fracture or subluxation is seen. Spinal canal is of normal caliber and spinal cord does not show any abnormal CT density. Loss of intervertebral disc height is a C4-5 and C5-6 with marginal osteophytes causing ventral impression of the thecal sac and mild central spinal canal stenosis is seen. Facet joint hypertrophy is seen throughout the cervical spinal. CT does not adequately assess canal patency with regard to epidural or disc disease. No definite intraspinal abnormality is noted.. No gross perivertebral soft tissue abnormality is seen. Airway appears patent. Hyoid bone and thyroid cartilage also do not show any focal abnormality. Limited evaluation of the vascular structures are grossly appears unremarkable. No focal lung apical abnormality is seen. IMPRESSION There is the abdomen No evidence of fracture or subluxation is seen. Degenerative changes of the cervical spine as described above. 2. Mild reversal of cervical lordosis is seen. Urgency: Routine. This is a routine medical imaging report. Recommendation: If clinically indicated flexion and extension series would be helpful Signed by Florencia Oconnell MD, MHA, FCPS on 12/02/2019 11:53 AM URINE DRUG SCREEN (12/01/2019 6:07 PM EDT) Amphetamines Negative Negative [facility] Barbiturates Negative Negative [facility] Benzodiazepine Negative Negative [facility] Cannabinoids Negative Negative [facility] Cocaine Negative Negative [facility] Methadone Negative Negative [facility] Opiates Negative Negative [facility] Oxycodone Negative Negative [facility] Phencyclidine Negative Negative [facility] Propoxyphene Negative Negative [facility] Specimen Urine - Urine specimen obtained by clean catch procedure (specimen) Narrative Performed At Drug Name [facility] Cut-off Level Amphetamine (AMP/METH) 1000 ng/ml Barbiturates (JOSÉ MIGUEL) 200 ng/ml Benzodiazepines (JACINTA) 200 ng/ml Cannabinoids (THC) 50 ng/ml Cocaine (AILIN) 300 ng/ml Methadone (MTD) 300 ng/ml Opiates (OPI) 300 ng/ml Oxycodone (OXY) 100 ng/ml Phencyclidine (PCP) 25 ng/ml Propoxyphene (PPX) 300 ng/ml Test results from this drug screen are to be used for medical purposes only. If positive, the sample is presumed to contain detectable drug concentrations equal to or greater than the cut-off concentrations listed above. A positive result indicates the presence of the drug or drug metabolite and does not indicate the level of intoxication or urinary concentration. Confirmation is available upon request to [facility]. Request for confirmation must be made within 5 days of the drug screen result. Performing Organization Address City/State/[place] Phone Number [facility] [address] [place] [address] URINALYSIS (LAB) WITH REFLEX CULTURE (12/01/2019 6:07 PM EDT) Urine Color Yellow Yellow [facility] Urine Appearance Clear Clear [facility] Urine Glucose Negative Negative mg/dl [facility] Urine Bilirubin Negative Negative [facility] Urine Ketones Negative Negative mg/dL [facility] Urine Specific 1.019 1.005 - 1.030 [facility] Urine Blood Negative Negative [facility] Urine Ph 5.5 5.0 - 8.0 [facility] Urine Protein Negative Negative mg/dl [facility] Urine Urobilinogen 1.0 0.2 - 1.0 E.U./DL [facility] Urine Nitrite Negative Negative [facility] Urine Leukocytes Trace (A) Negative [facility] Specimen Urine - Urine specimen obtained by clean catch procedure (specimen) Performing Organization Address City/State/Zipcode Phone Number [facility] [address] [place] [address] CT CHEST ABDOMEN PELVIS TRAUMA (12/01/2019 5:12 PM EDT) Specimen Impressions Performed At 1. No consolidation, effusion or edema. 2. Old rib and left inferior scapular fractures. No acute fracture or pneumothorax. PROCEDURE INFORMATION: Exam: CT Abdomen And Pelvis With Contrast Exam date and time: 12/01/2019 4:50 PM Clinical indication: Injury, unspecified, initial encounter; Additional info: Male, fall 10-12ft off a porch, +etoh TECHNIQUE: Imaging protocol: Computed tomography of the abdomen and pelvis with intravenous contrast. Radiation optimization: All CT scans at this facility use at least one of these dose optimization techniques: automated exposure control; mA and/or kV adjustment per patient size (includes targeted exams where dose is matched to clinical indication); or iterative reconstruction. COMPARISON: No relevant prior studies available. FINDINGS: Liver: Enlarged and fatty liver. Gallbladder and bile ducts: Normal. No calcified stones. No ductal dilation. Pancreas: Normal. No ductal dilation. Spleen: Normal. No splenomegaly. Adrenals: Normal. No mass. Kidneys and ureters: Normal. No hydronephrosis. Stomach and bowel: Unremarkable. No obstruction. No mucosal thickening. Appendix: No evidence of appendicitis. Intraperitoneal space: Unremarkable. No free air. No significant fluid collection. Vasculature: Extensive atherosclerosis. Lymph nodes: Unremarkable. No enlarged lymph nodes. Bladder: Unremarkable as visualized. Reproductive: Unremarkable as visualized. Bones/joints: Moderate degenerative changes. No acute fracture. Soft tissues: Bilateral inguinal hernias without bowel. Other findings: The parenchymal organs are intact without laceration. IMPRESSION: 1. The parenchymal organs are intact without laceration. 2. Enlarged and fatty liver. 3. No acute fracture. THIS DOCUMENT HAS BEEN ELECTRONICALLY SIGNED BY SIM MCCOY MD Narrative Performed At PROCEDURE INFORMATION: Exam: CT Chest With Contrast Exam date and time: 12/01/2019 4:50 PM Clinical indication: Injury, unspecified, initial encounter; Additional info: Male, fall 10-12ft off a porch, +etoh TECHNIQUE: Imaging protocol: Computed tomography of the chest with intravenous contrast. Radiation optimization: All CT scans at this facility use at least one of these dose optimization techniques: automated exposure control; mA and/or kV adjustment per patient size (includes targeted exams where dose is matched to clinical indication); or iterative reconstruction. COMPARISON: No relevant prior studies available. FINDINGS: Lungs: No consolidation, effusion or edema. Pleural space: Unremarkable. No pneumothorax. No pleural effusion. Heart: Coronary artery calcifications. Aorta: Unremarkable. No aortic aneurysm. Lymph nodes: Unremarkable. No enlarged lymph nodes. Bones/joints: Old rib and left inferior scapular fractures. No acute fracture or pneumothorax. Moderate degenerative changes thoracic spine with areas of bridging osteophytosis and chronic mild kyphosis at the thoracolumbar junction. Soft tissues: Unremarkable. Other findings: Limited atherosclerosis. Procedure Note Interface, Rad Results - 12/01/2019 6:18 PM EDT PROCEDURE INFORMATION: Exam: CT Chest With Contrast Exam date and time: 12/01/2019 4:50 PM Clinical indication: Injury, unspecified, initial encounter; Additional info: Male, fall 10-12ft off a porch, +etoh TECHNIQUE: Imaging protocol: Computed tomography of the chest with intravenous contrast. Radiation optimization: All CT scans at this facility use at least one of these dose optimization techniques: automated exposure control; mA and/or kV adjustment per patient size (includes targeted exams where dose is matched to clinical indication); or iterative reconstruction. COMPARISON: No relevant prior studies available. FINDINGS: Lungs: No consolidation, effusion or edema. Pleural space: Unremarkable. No pneumothorax. No pleural effusion. Heart: Coronary artery calcifications. Aorta: Unremarkable. No aortic aneurysm. Lymph nodes: Unremarkable. No enlarged lymph nodes. Bones/joints: Old rib and left inferior scapular fractures. No acute fracture or pneumothorax. Moderate degenerative changes thoracic spine with areas of bridging osteophytosis and chronic mild kyphosis at the thoracolumbar junction. Soft tissues: Unremarkable. Other findings: Limited atherosclerosis. IMPRESSION 1. No consolidation, effusion or edema. 2. Old rib and left inferior scapular fractures. No acute fracture or pneumothorax. PROCEDURE INFORMATION: Exam: CT Abdomen And Pelvis With Contrast Exam date and time: 12/01/2019 4:50 PM Clinical indication: Injury, unspecified, initial encounter; Additional info: Male, fall 10-12ft off a porch, +etoh TECHNIQUE: Imaging protocol: Computed tomography of the abdomen and pelvis with intravenous contrast. Radiation optimization: All CT scans at this facility use at least one of these dose optimization techniques: automated exposure control; mA and/or kV adjustment per patient size (includes targeted exams where dose is matched to clinical indication); or iterative reconstruction. COMPARISON: No relevant prior studies available. FINDINGS: Liver: Enlarged and fatty liver. Gallbladder and bile ducts: Normal. No calcified stones. No ductal dilation. Pancreas: Normal. No ductal dilation. Spleen: Normal. No splenomegaly. Adrenals: Normal. No mass. Kidneys and ureters: Normal. No hydronephrosis. Stomach and bowel: Unremarkable. No obstruction. No mucosal thickening. Appendix: No evidence of appendicitis. Intraperitoneal space: Unremarkable. No free air. No significant fluid collection. Vasculature: Extensive atherosclerosis. Lymph nodes: Unremarkable. No enlarged lymph nodes. Bladder: Unremarkable as visualized. Reproductive: Unremarkable as visualized. Bones/joints: Moderate degenerative changes. No acute fracture. Soft tissues: Bilateral inguinal hernias without bowel. Other findings: The parenchymal organs are intact without laceration. IMPRESSION: 1. The parenchymal organs are intact without laceration. 2. Enlarged and fatty liver. 3. No acute fracture. THIS DOCUMENT HAS BEEN ELECTRONICALLY SIGNED BY SIM MCCOY MD CT SPINE CERVICAL (12/01/2019 5:06 PM EDT) Specimen Impressions Performed At Impression: No displaced fracture within the limitations secondary to motion artifact. C1-C2 rotatory subluxation, unclear if this is a true finding or if secondary to neck positioning/spasm. Recommend correlation with physical exam for clarification. Multilevel degenerative changes, associated canal/foraminal narrowing, suboptimally assessed by CT. Please contact me at [phone] or page me, if there is a persistent specific area of clinical concern, if there is clinical discrepancy or if there are any questions about this report. Signed by Jason Alexandra on 12/01/2019 6:09 PM Narrative Performed At Procedure(s): CT SPINE CERVICAL Date of service: 12/01/2019 4:50 PM Provided clinical information: 89 years, Unknown, "male, fall 10-12ft off a porch, +ETOH" Procedure and materials: Standard axial noncontrast cervical spine CT is performed with sagittal and coronal reformatted images provided. Comparison studies: None. Procedure Note Interface, Rad Results - 12/01/2019 6:11 PM EDT Procedure(s): CT SPINE CERVICAL Date of service: 12/01/2019 4:50 PM Provided clinical information: 89 years, Unknown, "male, fall 10-12ft off a porch, +ETOH" Procedure and materials: Standard axial noncontrast cervical spine CT is performed with sagittal and coronal reformatted images provided. Comparison studies: None. IMPRESSION Impression: No displaced fracture within the limitations secondary to motion artifact. C1-C2 rotatory subluxation, unclear if this is a true finding or if secondary to neck positioning/spasm. Recommend correlation with physical exam for clarification. Multilevel degenerative changes, associated canal/foraminal narrowing, suboptimally assessed by CT. Please contact me at [phone] or page me, if there is a persistent specific area of clinical concern, if there is clinical discrepancy or if there are any questions about this report. Signed by Jason Alexandra on 12/01/2019 6:[address] HEAD WITHOUT IV CONTRAST (12/01/2019 5:04 PM EDT) Specimen Impressions Performed At 1.No definite intracranial hemorrhage within the limitations secondary to motion artifact. Signed by Jason Alexandra on 12/01/2019 5:52 PM Narrative Performed At Procedure(s): CT HEAD WITHOUT IV CONTRAST Date of service: 12/01/2019 4:49 PM Provided clinical information: 89 years, Unknown, "male, fall 10-12ft off a porch, +ETOH" Procedure and materials: Standard protocol. Contrast: Comparison studies: None. Findings: No definite intracranial hemorrhage within the limitations secondary to motion artifact. Age-indeterminate periventricular and subcortical small vessel ischemic changes identified. Mild global volume loss seen. The ventricles are mildly prominent. No midline shift. Preserved cisterns. There is significant paranasal sinus opacification. Procedure Note Interface, Rad Results - 12/01/2019 5:54 PM EDT Procedure(s): CT HEAD WITHOUT IV CONTRAST Date of service: 12/01/2019 4:49 PM Provided clinical information: 89 years, Unknown, "male, fall 10-12ft off a porch, +ETOH" Procedure and materials: Standard protocol. Contrast: Comparison studies: None. Findings: No definite intracranial hemorrhage within the limitations secondary to motion artifact. Age-indeterminate periventricular and subcortical small vessel ischemic changes identified. Mild global volume loss seen. The ventricles are mildly prominent. No midline shift. Preserved cisterns. There is significant paranasal sinus opacification. IMPRESSION 1.No definite intracranial hemorrhage within the limitations secondary to motion artifact. Signed by Jason Alexandra on 12/01/2019 5:52 PM RAINBOW DRAW RED TOP (12/01/2019 4:45 PM EDT) HOLD EXTRA TUBE [place] Hold [facility] Specimen Blood - Blood specimen (specimen) Performing Organization Address [facility] Phone Number [facility] [address] [address] RAINBOW DRAW GOLD TOP (12/01/2019 4:45 PM EDT) Specimen Blood - Blood specimen (specimen) Performing Organization Address [facility] Phone Number [facility] [address] [address] Blood Alcohol Level (12/01/2019 4:45 PM EDT) Blood Alcohol 297.10 (H) 0.00 - 10.00 MG/DL [facility] Alcohol % 0.30 None Detected % [facility] Specimen Blood - Blood specimen (specimen) Performing Organization Address [facility] Phone Number [facility] [address] [address] TYPE AND SCREEN (12/01/2019 4:45 PM EDT) ABO/RH Type A POS [facility] BLOOD [facility]ANK Antibody Screen Interp NEG [facility]OD [facility] Specimen Blood - Blood specimen (specimen) Performing Organization Address [facility] Phone Number [facility] BLOOD BANK [place] [address] [address] PTT (12/01/2019 4:45 PM EDT) PTT 31.6Comment: 21.3 - 35.9 SEC [facility] Reference range [facility] updated 07/06/2019. Specimen Blood - Blood specimen (specimen) Performing Organization Address [facility] Phone Number [facility] [address] [address] PT/INR (12/01/2019 4:45 PM EDT) INR 1.11Comment: INR 0.88 - 1.13 [facility] Therapeutic Range: Ratio [facility] 2.0 - 3.5 Protime 14.1Comment: 12.0 - 14.5 sec [facility] Reference range [facility] updated 07/06/2019. Specimen Blood - Blood specimen (specimen) Performing Organization Address City/State/Zipcode Phone Number [facility] [address] [address] [address] CBC WITH DIFFERENTIAL (12/01/2019 4:45 PM EDT) WBC Count 6.72 4.23 - 9.07 K/uL [facility] RBC Count 4.21 (L) 4.30 - 5.89 M/UL [facility] Hemoglobin 13.3 (L) 13.7 - 17.5 g/dL [facility] Hematocrit 39.5 (L) 40.1 - 51.0 % [facility] MCV 93.8 (H) 79.0 - 92.2 FL [facility] MCH 31.6 25.7 - 32.2 PG [facility] MCHC 33.7 32.3 - 36.5 g/dL [facility] Platelet Count 164 163 - 337 K/uL [facility] MPV 9.3 (L) 9.4 - 12.4 FL [facility] RDW 14.9 (H) 11.6 - 14.4 % [facility] Neutrophil % 55.9 34.0 - 67.9 % [facility] Lymphocyte % 31.5 21.8 - 53.1 % [facility] Monocyte % 8.2 5.3 - 12.2 % [facility] Eosinophil % 1.6 0.8 - 7.0 % [facility] Basophil % 2.1 (H) 0.2 - 1.2 % [facility] nRBC % 0.0 0.0 - 0.2 % [facility] Neutrophil # 3.75 1.78 - 5.38 K/UL [facility] Lymphocyte # 2.12 1.32 - 3.57 K/UL [facility] Monocyte # 0.55 0.30 - 0.82 K/UL [facility] Eosinophil # 0.11 0.04 - 0.54 K/UL [facility] Basophil # 0.14 (H) 0.01 - 0.08 K/UL [facility] Immature Gran % 0.7 (H) 0.0 - 0.4 % [facility] Immature Gran # 0.05 (H) 0.00 - 0.03 K/uL [facility] NRBC # 0.00 0.00 - 0.12 K/uL [facility] Specimen Blood - Blood specimen (specimen) Performing Organization Address City/[facility]/Zipcode Phone Number [facility] [address] [place] [address] Amylase (12/01/2019 4:45 PM EDT) Amylase 141 (H) 30 - 110 U/L [facility] Specimen Blood - Blood specimen (specimen) Performing Organization Address City/[facility]/Zipcode Phone Number [facility] [address] [place] [address] CMP (12/01/2019 4:45 PM EDT) Sodium 137 134 - 145 [facility] mmol/L [facility] Potassium 3.4 (L) 3.5 - 5.1 [facility] mmol/L [facility] Chloride 97 (L) 98 - 107 [facility] mmol/L [facility] CO2 27 22 - 30 [facility] mmol/L [facility] Calcium 8.1 (L) 8.3 - 10.1 [facility] mg/dl [facility] Albumin 4.1 3.5 - 5.0 [facility] g/dl [facility] BUN 16 9 - 20 mg/dl [facility] Creatinine 1.0 0.8 - 1.5 [facility] mg/dl [facility] Glucose 204 (H) 70 - 99 mg/dl [facility] Total Protein 7.5 6.3 - 8.2 [facility] g/dl [facility] Total Bilirubin 0.7 0.0 - 1.1 [facility] MG/DL [facility] AST 187 (H) 17 - 59 U/L [facility] ALT 76 (H) 21 - 72 U/L [facility] Alkaline 97 40 - 150 U/L [facility] Phosphatase [facility] eGFR Comment: Estimated [facility] GFR is not [facility] calculated for patients with an unknown sex. BUN/Creatinine 16 6 - 22 RATIO [facility] Anion Gap 13 (H) 3 - 11 mmol/L [facility] A/G Ratio 1.2 0.8 - 2.0 [facility] Specimen Blood - Blood specimen (specimen) Narrative Performed At Performing Organization Address City/State/Zipcode Phone Number [facility] [address] [address] [phone] documented in this encounter Visit Diagnoses Diagnosis Trauma Injury, other and unspecified, unspecified site Fall down stairs Accidental fall on or from other stairs or steps documented in this encounter Administered Medications Medication Order MAR Action Action Date Dose Rate Site acetaminophen (TYLENOL) tablet Given 12/02/2019 12:51 PM EDT 1,000 mg 1,000 mg 1,000 mg, Oral, Q8 HRS, First dose on Fri12/01/19 at 1940, Until Discontinued Given 12/02/2019 3:53 AM EDT 1,000 mg Given 12/01/2019 7:36 PM EDT 1,000 mg banana bag IV mixture New Bag 12/02/2019 12:50 PM EDT 125 mL/hr Intravenous, at 125 mL/hr, DAILY, 3 doses, First dose on Fri12/02/19 at 1040, Last dose on Fri12/04/19 at 0900, Banana bag to be hung daily. Further maintenance IV's must be ordered separately., diazepam (VALIUM) tablet 10 mg Given 12/02/2019 9:23 AM EDT 10 mg 10 mg, Oral, BID, 4 doses, First dose on Fri12/02/19 at 0930, Last dose on Fri12/03/19 at 2100 docusate sodium (COLACE) capsule 100 mg Given 12/02/2019 9:23 AM EDT 100 mg 100 mg, Oral, BID, First dose on Fri12/01/19 at 2100, Until Discontinued, This medication dosage form should NOT be crushed. Please call the inpatient Pharmacy for more information. [facility] ext. [phone] [place] ext. [phone] [facility] ext. [phone] , Given 12/01/2019 7:35 PM EDT 100 mg enoxaparin (LOVENOX) injection Given 12/02/2019 9:23 AM EDT 30 mg Abdominal Tissue 30 mg/0.3 mL 30 mg 30 mg, Subcutaneous, Q12 HRS, 30 doses, First dose on Fri12/01/19 at 1940, Last dose on Fri12/16/19 at 0900, (CONTRAINDICATED with epidural catheter), iohexol (OMNIPAQUE) 350 MG/ML injectable Push 12/01/2019 4:55 PM EDT 100 mL solution 100 mL 100 mL, Intravenous, NOW, 1 dose, Fri12/01/19 at 1655 magnesium hydroxide (MILK OF MAGNESIA) 400 MG/5ML oral suspension 30 mL 30 mL, Oral, QHS PRN, Starting Fri12/01/19 at 2100, Until Fri12/02/19 at 2041, Constipation 1st line if no stooling in last 24 hours ondansetron (ZOFRAN) injection 4 mg Given 12/02/2019 9:23 AM EDT 4 mg 4 mg, Intravenous Push, Q8 HRS PRN, Starting Fri12/02/19 at 0909, Until Fri12/02/19 at 2041, Nausea/Vomiting - IV - 1st line - If immediate effect required or patient cannot tolerate PO OXYcodone (OXY-IR,OXY-FAST) immediate release Given 12/02/2019 9:26 AM EDT 5 mg tablet 5 mg 5 mg, Oral, Q4 HRS PRN, Starting Fri12/01/19 at 1922, Until Chantel 12/02/19 at 2041, Moderate Pain (pain scale 4-6) - PO - 1st line - if immediate effect not required and patient can tolerate PO Given 12/02/2019 5:56 AM EDT 5 mg Given 12/02/2019 1:06 AM EDT 5 mg documented in this encounter Insurance Payer Benefit Plan / Subscriber ID Effective Dates Phone Address Type Group MEDICARE MEDICARE PART A [id number] 2013-Present Medicare & B MEDICAID [facility] [id number] 2019-Present Medicaid [place] MED[place] Guarantor Name Account Type Relation to Date of Phone Billing Patient Address Sim Chun Personal/Family 1960 [address] (Home) [place], [place] [phone] [id number] (Work) documented as of this encounter Advance Directives Code Status Date Activated Date Inactivated Comments Full Code 12/01/2019 6:40 PM Does the patient have decision making capacity? No Order was discussed with: Unable to determine at this time I discussed all options and patient/surrogate Full Code requested and agreed to:
--- OUTSIDE RECORDS SUMMARY | 2019-12-06 15:15 | XMS REPORT | Continuity of Care Document ---
:1960 External Reference #:[id number] Author Name Tesfaye Sadler M.D. Address [address] [place] [address] Care Team Providers Name Role Phone Jigna Cuello MD - Internal Medicine Care Team Information [facility] [employer] [employer] [facility] Anju Phelps M.D. - Cardiovascular Care Team Information [facility] [employer] [phone] Disease Glenn Sutton M.D. - Neurology Care Team Information [facility] [employer] Problems Active Problems Provider Date Essential hypertension Onset: Type 2 diabetes mellitus Onset: Anxiety Onset: Neuropathy Onset: Myocardial infarction Onset: Note: 1999 Hyperlipidemia Onset: Korsakoff's psychosis Onset: Myopia Tsefaye Sadler M.D. Onset: 08/05/2018 Astigmatism Tesfaye Sadler M.D. Onset: 08/05/2018 Presbyopia Tesfaye Sadler M.D. Onset: 08/05/2018 Placement of stent Onset: Prosopagnosia Onset: Cerebrovascular accident Onset: Note: 1999 Viral conjunctivitis Tesfaye Sadler M.D. Onset: 11/17/2019 Social History Type Date Description Comments Sex Unknown ETOH Use Former Alcohol Substance Abuse Tobacco Use Start: Unknown Light tobacco smoker (10 or fewer cigarettes/day) Recreational Drug Use Denies Drug Use Smoking Status Reviewed: 11/17/19 Light tobacco smoker (10 or fewer cigarettes/day) Allergies, Adverse Reactions, Alerts Description No Known Drug Allergies Medications Active Medications SIG Qnty Indications Ordering Provider Date Lorazepam Take 1 Tablet By Unknown 1mg Tablets Mouth Two Times Daily as Needed For Anxiety Or Isomnia -- Maximum Daily Dose Of 2 Per Day Atorvastatin Calcium Take 1 Tablet By Unknown 20mg Mouth AT Bedtime Tablets Hydroxyzine HCL Take 1 Tablet By Unknown 50mg Mouth AT Bedtime Tablets Metformin HCL Take 1 Tablet By Unknown 500mg Tablets Mouth Two Times Daily Pantoprazole Sodium Take 1 Tablet By Unknown 40mg Mouth Every Day Tablets Venlafaxine HCL ER Take 1 Capsule By Unknown 75mg Mouth Every Caps ER 24HR Morning Nitroglycerin Place One Tablet Unknown 0.4mg Tablets Under The Tongue Sub as Needed For Chest Pain, May Repeat Every 5 Minutes For Up To 3 Total Doses Call Doctor If Not Getting Be Metoprolol Succinate ER Take 1 Tablet By Unknown Mouth Every Day 25mg Tablets ER 24HR Gabapentin Take 1 Capsule By Unknown 300mg Capsules Mouth Two Times Daily Bupropion HCL ER (XL) Take 1 Tablet By Unknown 150mg Mouth Every Tablets ER 24HR Morning Amlodipine Besylate Take 1 Tablet By Unknown 5mg Mouth Every Day Tablets Folic Acid Take 1 Tablet By Unknown 1mg Tablets Mouth Every Day Aspirin Chew And Swallow Unknown 81mg Chewtabs 1 Tablet By Mouth Every Day Ciprofloxacin HCL 4 times daily Tesfaye Sadler, 0.3% left eye M.D. Solution Sandee Cooper 25mg Tablets M.D. Eq Nicotine Polacrilex Unknown 2mg Lozenges Immunizations Description No Information Available Vital Signs Description No Information Available Results Description No Information Available Procedures Description No Information Available Medical Devices Description No Information Available Encounters Description No Information Available Assessments Date Code Description Provider 11/17/2019 B30.8 Other viral conjunctivitis Tesfaye Sadler M.D. Plan of Treatment 11/17/2019 - Tesfaye Sadler M.D.B30.8 Other viral conjunctivitisComments: Smoking can increase the risk of developing or worsening any eye related disease , as well as affect your overall health. If you are a smoker, we strongly recommend that you quit.If you are not a smoker, we strongly recommend that you do not start. CONTINUE THE CIPRO DROPS IN YOUR LEFT EYE 4 TIMES ADAY UNTIL FRIDAY THEN STOP AND START A NEW BOTTLE OF ARTIFICIAL TEARS IN YOUR LEFT EYE NEEDEDFollow up:1 Month Follow Up DFE, REFRACTION You can expect to have your eyes [...] feel free to call our office at . Functional Status Description No Information Available Mental Status Description No Information Available Referrals Description No Information Available
--- OUTSIDE RECORDS SUMMARY | 2019-12-06 15:15 | XMS REPORT | Continuity of Care Document ---
:1960 External Reference #:[id number] Author Name Yasmine Stevenson NP Address [address] [place] [address] Care Team Providers Name Role Phone Jigna Cuello M.D. - Family Medicine Care Team Information Network Internship [phone] Jigna Cuello M.D. - Family Medicine Care Team Information Network Internship [phone] Problems Active Problems Provider Date Benign essential hypertension Raciel Rm M.D., [facility] Onset: 2013 Chronic ischemic heart disease Raciel Rm M.D., [facility] Onset: 2013 Chest pain Raciel Rm M.D., [facility] Onset: 10/12/2013 Hyperlipidemia Raciel Rm M.D., [facility] Onset: 10/12/2013 Multi vessel coronary artery [...] Use Former Drug User Smoking Status Reviewed: 12/06/19 Light tobacco smoker (10 or fewer cigarettes/day) [...] Glucose use once daily 1units E11.9 Sandee Jovel 10/12/2019 Monitor as needed to MD Device [...] I25.10 Yasmine Stevenson, 08/11/2018 5mg Tablets day THERMOGRAPH OPERATOR Lorazepam pt takes 45tabs Jigna Cuello [...] 135tabs Yasmine Stevenson ER mouth every day THERMOGRAPH OPERATOR 25mg Tablets ER 24HR Nitrostat one [...] CPT Code Status Date Vaccine Lot # [id number] Given 09/22/2019 Pneumonia Vaccine [id number] Vital Signs Date Vital Result Comment 12/06/2019 1:29pm Height 67 inches 5'7" Weight 193.38 lb with shoes Heart Rate 108 /min left radial BP Systolic Sitting 132 mmHg Lue, reg cuff BP Diastolic Sitting 84 mmHg Lue, reg cuff BP Systolic Standing 114 mmHg Lue, reg cuff BP Diastolic Standing 76 mmHg Lue, reg cuff BMI (Body Mass Index) 30.3 kg/m2 Ejection Fraction 35%-40% echocardiogram 11/17/19 11/16/2019 3:59pm Height 67 inches 5'7" Weight 199.00 lb Heart Rate 93 /min BP Systolic 138 mmHg BP Diastolic 82 mmHg Respiratory Rate 22 /min Pain Level 8 O2 % BldC Oximetry 97 % BMI (Body Mass Index) 31.2 kg/m2 Results Test Acquired Date Facility Test Result H/L Range Note Laboratory test 11/03/2019 [facility] Potassium TNP mmol/L 3.5-5.0 [address] [place] [address] [phone] CBC Auto Diff 11/03/2019 [facility] White Blood 5.0 Normal 3.5 -10.[address] Count 10^3/[place] [address] [phone] Red Blood Count 4.79 10^6/uL Normal 4.18-5.48 [...] Red Blood Cells % 0.3 Inr/Protime 11/03/2019 [facility] Inr 1.34 High 0.82-1.[address] [place] [address] [phone] Laboratory test 11/03/2019 [facility] Troponin-I 0.02 <0.03 [address] (TnI) ng/[place] [address] [phone] Comp Metabolic 11/03/2019 [facility] Sodium 136 Normal 135- [address] mmol/[place] [address] [phone] Chloride 93 mmol/L Low 101-111 Co2 Carbon [...] TNP U/L 13-39 6 Laboratory test 11/03/2019 [facility] Lipase 65 U/L Normal 11.0-82.[address] [place] [address] [phone] Alcohol 119 mg/dL High <10 Magnesium 1.6 mg/dL Low 1.9-2.7 Drug Abuse 10/12/2019 [facility] Urine Negative Cutoff: 10 W/Confirm, Ur [address] Alcohol mg/[place] [address] [phone] Urine Amphetamine Negative ng/mL 7 Urine Barbiturates Negative ng/mL 8 Urine Benzodiazepines Presumptive Posi <SEE NOTE> ng/mL Abnormal 9 Urine Cocaine Negative ng/mL 10 Urine Methadone Negative ng/mL Negative 11 Urine Opiates Negative ng/mL Negative 12 Urine Phencyclidine Negative ng/mL Cutoff: 25 Urine Tetrahydrocannabinol Negative ng/mL Cutoff: 50 13 Urine Benzodiazepines 10/12/2019 [facility] Urine Lorazepam 380 ng/mL [address] GC/MS [place], [place] [id number] [phone] Urine Nordiazepam GC/MS See Comment ng/mL 15 [...] Benzodiazepine Interp Positive. 22 Laboratory test 09/22/2019 [facility] In House Hemoglobin A1c 7.0 5-7 finding Ethanol, Urine 09/22/2019 [facility] Ethanol-by GC-Fid 17 mg/dL Cutoff: [address] [place] [address] [phone] Urine Etoh Interpretation Positive. 23 Drug Abuse 09/22/2019 [facility] Urine Presumptive Abnormal Cutoff: 24 W/Confirm, Ur [address] Alcohol Posi <SEE 10 [place] [address] NOTE> mg/dL [phone] Urine Amphetamine Negative ng/mL 25 Urine Barbiturates Negative ng/mL 26 Urine Benzodiazepines Negative ng/mL 27 Urine Cocaine Negative ng/mL 28 Urine Methadone Negative ng/mL Negative 29 Urine Opiates Negative ng/mL Negative 30 Urine Phencyclidine Negative ng/mL Cutoff: 25 Urine Tetrahydrocannabinol Negative ng/mL Cutoff: 50 31 Urine Microalbumin 09/22/2019 [facility] Ur Microalbumin 40.3 mg /L Random [address] (mg/L) [place], [place] [id number] [phone] Urine Creatinine 59.44 mg/dL Urine Microalbumin/Creatinine 67.7 High <31 Basic Metabolic 09/22/2019 [facility] Sodium 141 mmol/L Normal 135-[address] [place] [address] [phone] Potassium 4.3 mmol/L Normal 3.5-5.0 Chloride 99 mmol/L Low 101-111 Co2 Carbon Dioxide 29 mmol/L Normal 22-32 Anion Gap 13 mmol/L High 2-11 Glucose 154 mg/dL High 70-100 Blood Urea Nitrogen 16 mg/dL Normal 6-24 Creatinine 0.96 mg/dL Normal 0.67-1.17 BUN/Creatinine Ratio 16.7 Normal 8-20 Calcium 9.5 mg/dL Normal 8.6-10.3 Egfr Non- 80.2 >60 Egfr 97.0 >60 32 Laboratory test 07/06/2019 [facility] In House Hemoglobin A1c 7.5 High 5-7 finding Laboratory test 06/25/2019 [facility] Surgical SEE RESULT 33 finding [address] [facility] [place] [address] [phone] Laboratory test 06/25/2019 [facility] Point of Care 121 mg/dL High 70-100 34 finding [address] [facility] [place] [address] [phone] Laboratory test 06/21/2019 [facility] PSA Diagnostic 1.935 ng/ mL Normal 0-4.0 35 finding [address] [place] [address] [phone] 1 Specimen Hemolyzed. Result may not be valid. Unable to report test result due to hemolysis. 2 Standard intensity warfarin therapeutic range: 2.0-3.0 High intensity warfarin therapeutic range: 2.5-3.5 3 Troponin-I testing on Plasma Separator Tubes (PST) has a known false positive rate of 0.20-0.40%. All positive troponins reflex immediately to secondary confirmatory testing. Using the [employer] DxI 800 Access Immunoassay systems, the 99th [...] This test has been modified from the student activities director's instructions. Its performance characteristics were determined by [facility] in a manner consistent with CLIA requirements. This test has not been cleared or approved by the U.S. Food and Drug Administration. Test Performed by: [facility] [address] [place] [address] Customer Account Specialist: Raymon Self M.D. Ph.D.; CLIA# [id number] REFERENCE VALUE Cutoff: 100 15 Unknown [...] developed and its performance characteristics determined by [facility] in a manner consistent with CLIA requirements. This test has not been cleared or approved by the U.S. Food and Drug Administration. Test Performed by: [facility] [place] [address] Customer Account Specialist: Raymon Self M.D. Ph.D.; CLIA# [id number] ADDITIONAL INFORMATION This report is intended for use in clinical monitoring and management of patients. It is not intended for use in employment-related testing. This test was developed and its performance characteristics determined by [facility] in a manner consistent with CLIA requirements. This test has not been cleared or approved by the U.S. Food and Drug Administration. Test Performed by: [facility] [place] [address] Customer Account Specialist: Raymon Self M.D. Ph.D.; CLIA# [id number] 24 Presumptive Positive Drug confirmation to follow. [...] This test has been modified from the student activities director's instructions. Its performance characteristics were determined by [facility] in a manner consistent with CLIA requirements. This test has not been cleared or approved by the U.S. Food and Drug Administration. Test Performed by: [facility] - [address] [address] Customer Account Specialist: Raymon Self M.D. Ph.D.; CLIA# [id number] 32 Because ethnic data is not always [...] [address]: Patricia Fontana MD Acct: [id number] Unit: [id number] AGE: 59 Location: ENDO Re06/25/19 SEX: M Status: DEP REF SPEC: [id number] AYLA: 06/25/19- [facility] DR: Patricia Glover MD REQ: [id number] RECD: 06/25/19 STATUS: DEJA AGARWAL DR: Jigna [...] CONTINUED ON NEXT PAGE DEPARTMENT OF PATHOLOGY, [address] [place] [address] Tommie Grajeda M.D. Director [facility] # [id number] CLINICAL HISTORY History of polyps POST-OPERATIVE DIAGNOSIS [...] CONTINUED ON NEXT PAGE DEPARTMENT OF PATHOLOGY, [address] [place] [address] Tommie Grajeda M.D. Director [facility] # [id number] Signed by and Reported on: Tommie Grajeda MD [address] END OF REPORT DEPARTMENT OF PATHOLOGY, [facility] [address] [place], [place] [address] Tommie Grajeda M.D. Director [facility] # [id number] Repatcher: [id number] Serum levels of PSA measured using the Edy Meena DXI Hybritech immunoassay should not be interpreted as absolute evidence of the presence or absence of disease. The PSA value should be used in conjunction with other pertinent clinical diagnostic procedures. The values obtained with different assay methods or kits cannot be used interchangeably. Procedures Date Code Description Status 11/17/2019 09696 ECHO Transthoracic, Real-Time 2D With Doppler And Completed Color Flow 11/17/2019 16811 ECHO Transthoracic, Real-Time 2D With Doppler And Completed Color Flow 11/16/2019 99981 Inject/Drain Joint/Bursa Major W/O US Completed 11/03/2019 28160 Holter Monitor Review (24 hr)dr review & interp only Completed 10/21/2019 74526 ECG Monitor/Recording W/Visual Superimposition Completed Scanning 10/21/2019 13536 ECG Monitor/Recording W/Visual Superimposition Completed Scanning 09/13/2019 82723 EKG Tracing & Interpretation Completed 06/25/2019 [id number] Colonoscopy Completed 12/03/2018 [id number] Diabetic Retinal Eye Exam Completed 08/18/2018 [id number] Diabetic Foot Exam Completed 08/05/2018 144568049 Diabetic Retinal Eye Exam Completed 02/22/2000 [id number] Diabetic Retinal Eye Exam Completed Medical Devices Description No Information Available Encounters Type Date Location Provider Dx Diagnosis Office Visit 12/06/2019 [facility] Yasmine Stevenson, F10.29 Alcohol dependence 1:20p THERMOGRAPH OPERATOR with unspecified alcohol-induced disorder I25.5 Ischemic cardiomyopathy R00.0 Tachycardia, unspecified E78.5 Hyperlipidemia, unspecified Office Visit 11/16/2019 [facility] Edson Woodard S46.012A Strain of 3:00p at Felisha Beltran MD musc/tend the rotator cuff of left shoulder, init Office Visit 11/06/2019 [facility] Reece, F10.239 Alcohol 1:35p Assoc,pc THERMOGRAPH OPERATOR dependence with Hospitalists withdrawal, unspecified N17.9 Acute kidney failure, unspecified E87.6 Hypokalemia E83.42 Hypomagnesemia E78.1 Pure hyperglyceridemia R74.0 Nonspec elev of levels of transamns & lactic acid dehydrgnse R11.2 Nausea with vomiting, unspecified Office Visit 11/05/2019 [facility] Cornelia Reece, F10.239 Alcohol 1:34p Assoc,pc THERMOGRAPH OPERATOR dependence with Hospitalists withdrawal, unspecified E87.6 Hypokalemia E78.1 Pure hyperglyceridemia E83.42 Hypomagnesemia R74.0 Nonspec elev of levels of transamns & lactic acid dehydrgnse Office Visit 11/04/2019 [facility] Cornelia Lenzulx, F10.239 Alcohol 1:29p Assoc,pc THERMOGRAPH OPERATOR dependence with Hospitalists withdrawal, unspecified E78.1 Pure hyperglyceridemia E83.42 Hypomagnesemia R74.0 Nonspec elev of levels of transamns & lactic acid dehydrgnse Office Visit 11/03/2019 [facility] Annie N17.9 Acute kidney 1:28p Assoc,pc MIRYAM Singleton failure, Hospitalists unspecified R11.2 Nausea with vomiting, unspecified R10.9 Unspecified abdominal pain Office Visit 10/12/2019 9:30a [facility] Internal Sandee M25.512 Pain in left Medicine - Neville Jovel MD shoulder E11.9 Type 2 diabetes mellitus without complications I10 Essential (primary) hypertension F10.11 Alcohol abuse, in remission Office Visit 09/22/2019 2:00p [facility] Internal Sandee E11.9 Type 2 diabetes Temitope Jovel MD mellitus without Ccmob complications I10 Essential (primary) hypertension W00.9xxD Unspecified fall due to ice and snow, subsequent encounter Z23 Encounter for immunization F32.9 Major depressive disorder, single episode, unspecified Office Visit 09/14/2019 11:30a [facility] Internal Sandee W00.9xxA Unspecified fall Temitope Jovel MD due to ice and Ccmob snow, initial encounter E11.9 Type 2 diabetes mellitus without complications S49.92xA Unsp injury of left shoulder and upper arm, init encntr Office Visit 09/13/2019 1:20p [facility] Yasmine Stevenson, I10 Essential (primary) THERMOGRAPH OPERATOR hypertension F10.10 Alcohol abuse, uncomplicated I25.10 Athscl heart disease of alutiiq coronary artery w/o ang pctrs E78.5 Hyperlipidemia, unspecified R00.0 Tachycardia, unspecified Office Visit 07/06/2019 11:40a [facility] Internal Jigna Cuello, E11.9 Type 2 diabetes Temitope Arrington MD mellitus without Ccmob complications I10 Essential (primary) hypertension F10.10 Alcohol abuse, uncomplicated Z23 Encounter for immunization Assessments Date Code Description Provider 12/06/2019 F10.29 Alcohol dependence with unspecified Yasmine Stevenson NP alcohol-induced disorder 12/06/2019 I25.5 Ischemic cardiomyopathy Yasmine Thuman, THERMOGRAPH OPERATOR 12/06/2019 R00.0 Tachycardia, unspecified Yasmine Thuman, THERMOGRAPH OPERATOR 12/06/2019 E78.5 Hyperlipidemia, unspecified Yasmine Thuman, THERMOGRAPH OPERATOR 11/17/2019 I25.5 Ischemic cardiomyopathy Anju Phelps M.D. [...] F10.239 Alcohol dependence with withdrawal, Cornelia Reece, THERMOGRAPH OPERATOR unspecified 11/06/2019 N17.9 Acute kidney failure, unspecified Cornelia Reece, THERMOGRAPH OPERATOR 11/06/2019 E87.6 Hypokalemia Cornelia Reece, THERMOGRAPH OPERATOR 11/06/2019 E83.42 Hypomagnesemia Cornelia Reece, THERMOGRAPH OPERATOR 11/06/2019 E78.1 Pure hyperglyceridemia Cornelia Reece, THERMOGRAPH OPERATOR 11/06/2019 R74.0 Nonspecific elevation of levels of Cornelia Reece, THERMOGRAPH OPERATOR transaminase and lactic acid dehydrogenase [LDH] 11/06/2019 R11.2 Nausea with vomiting, unspecified Cornelia Reece, THERMOGRAPH OPERATOR 11/05/2019 F10.239 Alcohol dependence with withdrawal, Cornelia Reece, THERMOGRAPH OPERATOR unspecified 11/05/2019 E87.6 Hypokalemia Cornelia Reece, THERMOGRAPH OPERATOR 11/05/2019 E78.1 Pure hyperglyceridemia Cornelia Reece, THERMOGRAPH OPERATOR 11/05/2019 E83.42 Hypomagnesemia Cornelia Reece, THERMOGRAPH OPERATOR 11/05/2019 R74.0 Nonspecific elevation of levels of Cornelia Reece, THERMOGRAPH OPERATOR transaminase and lactic acid dehydrogenase [LDH] 11/04/2019 F10.239 Alcohol dependence with withdrawal, Cornelia Reece, THERMOGRAPH OPERATOR unspecified 11/04/2019 E78.1 Pure hyperglyceridemia Cornelia Reece, THERMOGRAPH OPERATOR 11/04/2019 E83.42 Hypomagnesemia Cornleia Reece, THERMOGRAPH OPERATOR 11/04/2019 R74.0 Nonspecific elevation of levels of Cornelia Reece, THERMOGRAPH OPERATOR transaminase and lactic acid dehydrogenase [LDH] 11/03/2019 [...] 09/13/2019 I10 Essential (primary) hypertension Yasmine Stevenson, THERMOGRAPH OPERATOR 09/13/2019 F10.10 Alcohol abuse, uncomplicated Yasmine Stevenson, THERMOGRAPH OPERATOR 09/13/2019 I25.10 Atherosclerotic heart disease of alutiiq Yasmine AbdiHOANG williamson coronary artery with 09/13/2019 E78.5 Hyperlipidemia, unspecified Yasmine Graham, THERMOGRAPH OPERATOR 09/13/2019 R00.0 Tachycardia, unspecified Yasminesally Stevenson, THERMOGRAPH OPERATOR 07/06/2019 E11.9 Type 2 diabetes mellitus without Jigna Cuello MD complications 07/06/2019 I10 Essential (primary) hypertension Jigna Cuello MD 07/06/2019 F10.10 Alcohol abuse, uncomplicated Jigna Cuello MD 07/06/2019 Z23 Encounter for immunization Jigna Cuello MD Plan of Treatment Future Appointment(s):12/28/2019 9:45 am - Edson Beltran MD at [facility] at Ofvcpq4012/06/2019 - Yasmine Graham, NPF10.29 Alcohol dependence with unspecified alcohol-induced wwzndnprM69.5 Ischemic rushftgfzipkppP76.0 Tachycardia, unspecifiedRecommendations:You appear to be actively with drawling from alcohol which you stated you are in agreement with. Given the importance of maintaining sobriety ( heart failure is worsening) and your inability to do so with exam findings/physical findings suggestive of active withdrawal I want you to go to the hospitalfor inpatient rehab. I spoke with the Emergency room provider ( Summer) who agree with oktnqdkoifX25.5 Hyperlipidemia, unspecified Functional Status Description No Information Available Mental Status Description No Information Available Referrals Refer to Reason for Referral Status Appt Date Nghia Cook MD Sent 11/04/2019 [address] [place] [address] [phone] [facility] Sent [address] [id number] [phone]
--- OUTSIDE RECORDS SUMMARY | 2019-12-06 15:16 | XMS REPORT | Continuity of Care Document ---
:1960 External Reference #:[id number] Author Name Edson Beltran MD (transmitted by agent of provider Gerald Huitron) Address [address] [place] [address] Care Team Providers Name Role Phone Jigna Cuello M.D. 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 Problems Active Problems Provider Date Benign essential hypertension Raciel Rm M.D., [facility], [facility] Onset: 2013 Chronic ischemic heart disease Raciel Rm M.D., [facility] Onset: 2013 Chest pain Raciel Rm M.D., [facility] Onset: 10/12/2013 Hyperlipidemia Raciel Rm M.D., [facility] Onset: 10/12/2013 Multi vessel coronary artery [...] I25.10 Yasmine Stevenson, 08/11/2018 5mg Tablets day [place] Lorazepam pt takes 45tabs Jigna Cuello MD [...] Tablets DR Gabapentin 1 by mouth two 60capoliver Cuello MD 300mg times a day Capsules [...] 135tabs Yasmine Stevenson, ER mouth every day [place] 25mg Tablets ER 24HR Nitrostat one sl [...] Date Technetium TC 99M Jeb Gerardo DO FAC 08/04/2018 Tetrofosmin, Per Unit Dose Up To 40 Millicuries Injection Immunizations CPT Code Status Date Vaccine Lot # [id number] Given 09/22/2019 Pneumonia Vaccine [id number] Vital Signs Date Vital Result Comment 11/16/2019 [...] Result H/L Range Note Laboratory test 11/03/2019 [facility] Potassium TNP mmol/L 3.5-5.[address] [place] [address] [phone] CBC Auto Diff 11/03/2019 [facility] White Blood 5.0 Normal 3.5 -10.[address] Count 10^3/[place] [address] [phone] Red Blood Count 4.79 10^6/uL Normal 4.18-5.48 [...] Red Blood Cells % 0.3 Inr/Protime 11/03/2019 [facility] Inr 1.34 High 0.82-1.[address] [place] [address] [phone] Laboratory test 11/03/2019 [facility] Troponin-I 0.02 <0.03 [address] (TnI) ng/[place] [address] [phone] Comp Metabolic 11/03/2019 [facility] Sodium 136 Normal 135- [address] mmol/[place] [address] [phone] Chloride 93 mmol/L Low 101-111 Co2 Carbon [...] TNP U/L 13-39 6 Laboratory test 11/03/2019 [facility] Lipase 65 U/L Normal 11.0-82.[address] [place] [address] [phone] Alcohol 119 mg/dL High <10 Magnesium 1.6 mg/dL Low 1.9-2.7 Drug Abuse 10/12/2019 [facility] Urine Negative Cutoff: 10 W/Confirm, Ur [address] Alcohol mg/[place] [address] [phone] Urine Amphetamine Negative ng/mL 7 Urine Barbiturates Negative ng/mL 8 Urine Benzodiazepines Presumptive Posi <SEE NOTE> ng/mL Abnormal 9 Urine Cocaine Negative ng/mL 10 Urine Methadone Negative ng/mL Negative 11 Urine Opiates Negative ng/mL Negative 12 Urine Phencyclidine Negative ng/mL Cutoff: 25 Urine Tetrahydrocannabinol Negative ng/mL Cutoff: 50 13 Urine Benzodiazepines 10/12/2019 [facility] Urine Lorazepam 380 ng/mL [address] GC/MS [place], [place] [id number] [phone] Urine Nordiazepam GC/MS See Comment ng/mL 15 [...] Benzodiazepine Interp Positive. 22 Laboratory test 09/22/2019 [facility] Hemoglobin A1c 7.0 5-7 finding Ethanol, Urine 09/22/2019 [facility] Ethanol-by GC-Fid 17 mg/dL Cutoff: [address] [place], [place] [id number] [phone] Urine Etoh Interpretation Positive. 23 Drug Abuse 09/22/2019 [facility] Urine Presumptive Abnormal Cutoff: 24 W/Confirm, Ur [address] Alcohol Posi <SEE [address] [place] [address] NOTE> mg/dL [phone] Urine Amphetamine Negative ng/mL 25 Urine Barbiturates Negative ng/mL 26 Urine Benzodiazepines Negative ng/mL 27 Urine Cocaine Negative ng/mL 28 Urine Methadone Negative ng/mL Negative 29 Urine Opiates Negative ng/mL Negative 30 Urine Phencyclidine Negative ng/mL Cutoff: 25 Urine Tetrahydrocannabinol Negative ng/mL Cutoff: 50 31 Urine Microalbumin 09/22/2019 [facility] Ur Microalbumin 40.3 mg /L Random [address] (mg/L) [place], [place] [id number] [phone] Urine Creatinine 59.44 mg/dL Urine Microalbumin/Creatinine 67.7 High <31 Basic Metabolic 09/22/2019 [facility] Sodium 141 mmol/L Normal 135-[address] [place] [address] [phone] Potassium 4.3 mmol/L Normal 3.5-5.0 Chloride 99 mmol/L Low 101-111 Co2 Carbon Dioxide 29 mmol/L Normal 22-32 Anion Gap 13 mmol/L High 2-11 Glucose 154 mg/dL High 70-100 Blood Urea Nitrogen 16 mg/dL Normal 6-24 Creatinine 0.96 mg/dL Normal 0.67-1.17 BUN/Creatinine Ratio 16.7 Normal 8-20 Calcium 9.5 mg/dL Normal 8.6-10.3 Egfr Non- 80.2 >60 Egfr 97.0 >60 32 Laboratory test 07/06/2019 [facility] House Hemoglobin A1c 7.5 High 5-7 finding Laboratory test 06/25/2019 [facility] Surgical SEE RESULT [address] [place] [address] [phone] Laboratory test 06/25/2019 [facility] Point of Care 121 mg/dL High 70-100 [address] [place] [address] [phone] Laboratory test 06/21/2019 [facility] PSA Diagnostic 1.935 ng/ mL Normal 0-4.0 [address] [place] [address] [phone] 1 Specimen Hemolyzed. Result may not be valid. Unable to report test result due to hemolysis. 2 Standard intensity warfarin therapeutic range: 2.0-3.0 High intensity warfarin therapeutic range: 2.5-3.5 3 Troponin-I testing on Plasma Separator Tubes (PST) has a known false positive rate of 0.20-0.40%. All positive troponins reflex immediately to secondary confirmatory testing. Using the [employer] DxI 800 Access Immunoassay systems, the 99th [...] This test has been modified from the resist coater developer's instructions. Its performance characteristics were determined by [facility] in a manner consistent with CLIA requirements. This test has not been cleared or approved by the U.S. Food and Drug Administration. Test Performed by: [facility] [address] [place] [address] Plating Machine Operator: Raymon Self M.D. Ph.D.; CLIA# [id number] REFERENCE VALUE Cutoff: 100 15 Unknown [...] developed and its performance characteristics determined by [facility] in a manner consistent with CLIA requirements. This test has not been cleared or approved by the U.S. Food and Drug Administration. Test Performed by: [facility] [place] [address] Plating Machine Operator: Raymon Self M.D. Ph.D.; CLIA# [id number] ADDITIONAL INFORMATION This report is intended for use in clinical monitoring and management of patients. It is not intended for use in employment-related testing. This test was developed and its performance characteristics determined by [facility] in a manner consistent with CLIA requirements. This test has not been cleared or approved by the U.S. Food and Drug Administration. Test Performed by: [facility] [place] [address] Plating Machine Operator: Raymon Self M.D. Ph.D.; CLIA# [id number] Presumptive Positive Drug confirmation to follow. [...] This test has been modified from the resist coater developer's instructions. Its performance characteristics were determined by [facility] in a manner consistent with CLIA requirements. This test has not been cleared or approved by the U.S. Food and Drug Administration. Test Performed by: [facility] [place] [address] [place] [address] Plating Machine Operator: Raymon Self M.D. Ph.D.; CLIA# [id number] 32 Because ethnic data is not always [...] [address]: Patricia Fontana MD Acct: [id number] Unit: [id number] AGE: 59 Location: ENDO Re06/25/19 SEX: M Status: DEP REF SPEC: [id number] AYLA: 06/25/19- SUBM DR: Patricia Glover MD REQ: [id number] RECD: 06/25/19 STATUS: DEJA AGARWAL DR: Jigna [...] CONTINUED ON NEXT PAGE DEPARTMENT OF PATHOLOGY, [address] [place] [address] Tommie Grajeda M.D. Director [facility] # [id number] CLINICAL HISTORY History of polyps POST-OPERATIVE DIAGNOSIS [...] CONTINUED ON NEXT PAGE DEPARTMENT OF PATHOLOGY, [address] [place] [address] Tommie Grajeda M.D. Director [facility] # [id number] Signed by and Reported on: Tommie Grajeda MD 1 END OF REPORT DEPARTMENT OF PATHOLOGY, [facility] [employer] [place], [place] [address] Tommie Grajeda M.D. Director [facility] # [id number] 34 General Scrap Worker: [id number] Serum levels of PSA measured using the Edy Meena DXI Hybritech immunoassay should not be interpreted as absolute evidence of the presence or absence of disease. The PSA value should be used in conjunction with other pertinent clinical diagnostic procedures. The values obtained with different assay methods or kits cannot be used interchangeably. Procedures Date Code Description Status 11/16/2019 71675 Inject/Drain Joint/Bursa Major W/O US Completed 11/03/2019 86725 Holter Monitor Review (24 hr)dr murphy & interp only Completed 10/21/2019 94356 ECG Monitor/Recording W/Visual Superimposition Completed Scanning 10/21/2019 29151 ECG Monitor/Recording W/Visual Superimposition Completed Scanning 09/13/2019 89731 EKG Tracing & Interpretation Completed 06/25/2019 [id number] Colonoscopy Completed 12/03/2018 [id number] Diabetic Retinal Eye Exam Completed 08/18/2018 [id number] Diabetic Foot Exam Completed 08/05/2018 926473435 Diabetic Retinal Eye Exam Completed 02/22/2000 233086048 Diabetic Retinal Eye Exam Completed Medical Devices Description No Information Available Encounters Type Date Location Provider Dx Diagnosis Office Visit 11/16/2019 [facility] Edson Woodard S46.012A Strain of 3:00p at Felisha Beltran MD musc/tend the rotator cuff of left shoulder, init Office Visit 11/06/2019 [facility] Reece, F10.239 Alcohol dependence 1:35p Assoc,pc [place] with withdrawal, Hospitalists unspecified N17.9 Acute kidney failure, unspecified E87.6 Hypokalemia E83.42 Hypomagnesemia E78.1 Pure hyperglyceridemia R74.0 Nonspec elev of levels of transamns & lactic acid dehydrgnse R11.2 Nausea with vomiting, unspecified Office Visit 11/05/2019 [facility] Reece, F10.239 Alcohol 1:34p Assoc,pc [place] dependence with Hospitalists withdrawal, unspecified E87.6 Hypokalemia E78.1 Pure hyperglyceridemia E83.42 Hypomagnesemia R74.0 Nonspec elev of levels of transamns & lactic acid dehydrgnse Office Visit 11/04/2019 [facility] Reece, F10.239 Alcohol 1:29p Assoc,pc [place] dependence with Hospitalists withdrawal, unspecified E78.1 Pure hyperglyceridemia E83.42 Hypomagnesemia R74.0 Nonspec elev of levels of transamns & lactic acid dehydrgnse Office Visit 11/03/2019 [facility] Annie N17.9 Acute kidney 1:28p Assoc,pc MIRYAM Singleton failure, Hospitalists unspecified R11.2 Nausea with vomiting, unspecified R10.9 Unspecified abdominal pain Office Visit 10/12/2019 9:30a [facility] Internal Sandee M25.512 Pain in left Medicine - Ccmob MD Med shoulder E11.9 Type 2 diabetes mellitus without complications I10 Essential (primary) hypertension F10.11 Alcohol abuse, in remission Office Visit 09/22/2019 2:00p [facility] Internal Sandee E11.9 Type 2 diabetes Temitope - MD Med mellitus without Ccmob complications I10 Essential (primary) hypertension W00.9xxD Unspecified fall due to ice and snow, subsequent encounter Z23 Encounter for immunization F32.9 Major depressive disorder, single episode, unspecified Office Visit 09/14/2019 11:30a [facility] Internal Sandee W00.9xxA Unspecified fall Temitope Jovel MD due to ice and Ccmob snow, initial encounter E11.9 Type 2 diabetes mellitus without complications S49.92xA Unsp injury of left shoulder and upper arm, init encntr Office Visit 09/13/2019 1:20p [facility] Yasmine Thuman, I10 Essential (primary) [place] hypertension F10.10 Alcohol abuse, uncomplicated I25.10 Athscl heart disease of [place] coronary artery w/o ang pctrs E78.5 Hyperlipidemia, unspecified R00.0 Tachycardia, unspecified Office Visit 07/06/2019 11:40a [facility] Internal Jigna Cuello, E11.9 Type 2 diabetes Medicine - mellitus without Ccmob complications I10 Essential (primary) hypertension F10.10 Alcohol abuse, uncomplicated Z23 Encounter for immunization Office Visit 06/04/2019 1:30p [facility] Leroy R20.2 Paresthesia of [facility] Arriola, N.P. skin R25.1 Tremor, unspecified Z86.73 Prsnl hx of TIA (TIA), and cereb infrc w/o resid deficits F32.9 Major depressive disorder, single episode, unspecified G62.9 Polyneuropathy, unspecified Assessments Date Code Description Provider 11/16/2019 S46.012A Strain of muscle(s) and tendon(s) of the Edson Beltran MD rotator cuff of left shoulder, initial encounter 11/06/2019 F10.239 Alcohol dependence with withdrawal, Cornelia Reece, [place]ER unspecified 11/06/2019 N17.9 Acute kidney failure, unspecified Cornelia Reece, [place]ER 11/06/2019 E87.6 Hypokalemia Cornelia Reece, [place]ER 11/06/2019 E83.42 Hypomagnesemia Cornelia Reece, [place] 11/06/2019 E78.1 Pure hyperglyceridemia Cornelia Reece, [place]ER 11/06/2019 R74.0 Nonspecific elevation of levels of Cornelia Reece, [place] transaminase and lactic acid dehydrogenase [LDH] 11/06/2019 R11.2 Nausea with vomiting, unspecified Cornelia Reece, [place]ER 11/05/2019 F10.239 Alcohol dependence with withdrawal, Cornelia Reece, [place]ER unspecified 11/05/2019 E87.6 Hypokalemia Cornelia Reece, [place]ER 11/05/2019 E78.1 Pure hyperglyceridemia Cornelia Reece, [place]ER 11/05/2019 E83.42 Hypomagnesemia Cornelia Reece, [place]ER 11/05/2019 R74.0 Nonspecific elevation of levels of Cornelia Reece, [place] transaminase and lactic acid dehydrogenase [LDH] 11/04/2019 F10.239 Alcohol dependence with withdrawal, Cornelia Reece, [place]ER unspecified 11/04/2019 E78.1 Pure hyperglyceridemia Cornelia Reece, [place]ER 11/04/2019 E83.42 Hypomagnesemia Cornelia Reece, [place]ER 11/04/2019 R74.0 Nonspecific elevation of levels of Cornelia Reece, [place] transaminase and lactic acid dehydrogenase [LDH] 11/03/2019 N17.9 Acute kidney failure, unspecified Annie Singleton, PA 11/03/2019 R11.2 Nausea with vomiting, unspecified Annie Singleton, PA 11/03/2019 R10.9 Unspecified abdominal pain Annie Singleton, PA 11/03/2019 R00.0 Tachycardia, unspecified Anju Phelps M.D. [...] 09/13/2019 I10 Essential (primary) hypertension Yasmine Stevenson, HOANG 09/13/2019 F10.10 Alcohol abuse, uncomplicated Yasmine Stevenson, [place] 09/13/2019 I25.10 Atherosclerotic heart disease of [place] Yasmine HOANG Stevenson coronary artery with 09/13/2019 E78.5 Hyperlipidemia, unspecified Yasmine Stevenson, [place]ER 09/13/2019 R00.0 Tachycardia, unspecified Yasmine Stevenson, [place] 07/06/2019 E11.9 Type 2 diabetes mellitus without Jigna Cuello MD complications 07/06/2019 I10 Essential (primary) hypertension Jigna Cuello MD 07/06/2019 F10.10 Alcohol abuse, uncomplicated Jigna Cuello MD 07/06/2019 Z23 Encounter for immunization Jigna Cuello MD 06/04/2019 R20.2 Paresthesia of skin Leroy Arriola, N.P. 06/04/2019 R25.1 Tremor, unspecified Alejandra Buckner.P. 06/04/2019 Z86.73 Personal history of transient ischemic Leroy Arriola, N.P. attack (TIA), and cer 06/04/2019 F32.9 Major depressive disorder, single episode, Leroy Arriola , N.P. unspecified 06/04/2019 G62.9 Polyneuropathy, unspecified Leroy Arriola, N.P. Plan of Treatment Future Appointment(s):12/28/2019 9:45 am - Edson Beltran MD at [facility] at [id number]/25/2019 2:20 pm - Yasmine Stevenson NP at [facility]11/17/2019 1:00 pm - Traveling ECHO 1 at [facility]11/2019 - Edson Beltran MDS46.012A Strain of muscle(s) and tendon(s) of the rotator cuff of left shoulder, initial encounterNew Therapy:Physical TherapyFollow up:Follow up: 6 weeks Functional Status Description No Information Available Mental Status Description No Information Available Referrals Refer to Reason for Referral Status Appt Date Nghia Cook MD Sent 11/04/2019 [address] [facility] [place] [address] [phone] [facility] Sent [address] [place] [address] [phone]
== END 2019-12-06 15:56 | disposition home or self-care (01) ==
LOC: ED 14:44
DX: Z72.89 Other problems related to lifestyle (principal); E11.9 Type 2 diabetes mellitus without complications; I25.10 Atherosclerotic heart disease of native coronary artery without angina pectoris; E78.00 Pure hypercholesterolemia, unspecified; I10 Essential (primary) hypertension; I25.2 Old myocardial infarction; J44.9 Chronic obstructive pulmonary disease, unspecified; K21.9 Gastro-esophageal reflux disease without esophagitis; F17.210 Nicotine dependence, cigarettes, uncomplicated; F41.9 Anxiety disorder, unspecified; F43.10 Post-traumatic stress disorder, unspecified; F32.9 Major depressive disorder, single episode, unspecified; Z95.5 Presence of coronary angioplasty implant and graft; Z86.74 Personal history of sudden cardiac arrest; Z86.73 Personal history of transient ischemic attack (TIA), and cerebral infarction without residual deficits; Z87.442 Personal history of urinary calculi; Z79.82 Long term (current) use of aspirin; Z79.84 Long term (current) use of oral hypoglycemic drugs; Z79.899 Other long term (current) drug therapy; Z88.2 Allergy status to sulfonamides; Z88.8 Allergy status to other drugs, medicaments and biological substances
CPT/HCPCS: 99282; A9270-GY

== ENCOUNTER 2019-12-16 13:34 | Emergency (ER) | payer MEDICARE, MEDICAID ==
--- OUTSIDE RECORDS SUMMARY | 2019-12-16 14:25 | XMS REPORT | Continuity of Care Document ---
:1960 External Reference #:[id number] Author Name Yasmine Stevenson NP (transmitted by agent of provider Jennifer Chapin) Address [address] [place] [address] Care Team Providers Name Role Phone Jigna Cuello M.D. - Family Medicine Care Team Information Plastics Supervisor [phone] Jigna Cuello M.D. - Family Medicine Care Team Information Plastics Supervisor Problems Active Problems Provider Date Benign essential hypertension Raciel Rm M.D., [facility] Onset: 2013 Chronic ischemic heart disease Raciel Rm M.D., [facility] Onset: 2013 Chest pain Raciel Rm M.D., [facility] Onset: 10/12/2013 Hyperlipidemia Raciel Rm M.D., [facility] Onset: 10/12/2013 Multi vessel coronary artery [...] 2019 33G to check blood [facility] Pads use once daily 100units E11.9 Sandee Jovel, 10/12/2019 70% Pads just prior to MD checking fs Accu-Check Kelsie Chem use once daily 100units E11.9 Sandee Jovel 10/12 Strips as needed to Misc check fs (Wegman's) Nicotine Polacrilex Week 1-6 take 1 72units Jigna Cuello MD 03/03/2019 4mg lozenge every Lozenges 1-2 hours as needed, not to exceed 5 lozenges in 6 hours Bupropion 2 tabs by mouth 60tabs Jigna Cuello MD 03/02/2019 Hydrochloride ER (XL) every morning 150mg Tablets ER 24HR Norvasc 1 by mouth every 90tabs I25.10 Yasmine Stevenson, 08/11/2018 5mg Tablets day [employer] Lorazepam pt takes 45tabs Jigna Cuello MD [...] 135tabs Yasmine Stevenson, ER mouth every day [employer] 25mg Tablets ER 24HR Nitrostat one sl [...] Injection Technetium TC 99M Jeb Gerardo DO [facility] 08/04/2018 Tetrofosmin, Per Unit Dose Up To 40 Millicuries Injection Immunizations CPT Code Status Date Vaccine Lot # [id number] Given 09/22/2019 Pneumonia Vaccine [id number] Vital Signs Date Vital Result Comment 12/06/2019 [...] Result H/L Range Note Laboratory test 11/03/2019 [facility] Potassium TNP mmol/L 3.5-5.[address] [place] [address] [phone] CBC Auto Diff 11/03/2019 [facility] White Blood 5.0 Normal 3.5 -10.[address] Count 10^3/uL [place], [place] [id number] [phone] Red Blood Count 4.79 10^6/uL Normal 4.18-5.48 [...] Red Blood Cells % 0.3 Inr/Protime 11/03/2019 [facility] Inr 1.34 High 0.82-1.[address] [place] [address] [phone] Laboratory test 11/03/2019 [facility] Troponin-I 0.02 <0.03 [address] (TnI) ng/[place] [address] [phone] Comp Metabolic 11/03/2019 [facility] Sodium 136 Normal 135- [address] mmol/[place] [address] [phone] Chloride 93 mmol/L Low 101-111 Co2 Carbon [...] TNP U/L 13-39 6 Laboratory test 11/03/2019 [facility] Lipase 65 U/L Normal 11.0-82.[address] [place] [address] [phone] Alcohol 119 mg/dL High <10 Magnesium 1.6 mg/dL Low 1.9-2.7 Drug Abuse 10/12/2019 [facility] Urine Negative Cutoff: 10 W/Confirm, Ur [address] Alcohol mg/[place] [address] [phone] Urine Amphetamine Negative ng/mL 7 Urine Barbiturates Negative ng/mL 8 Urine Benzodiazepines Presumptive Posi <SEE NOTE> ng/mL Abnormal 9 Urine Cocaine Negative ng/mL 10 Urine Methadone Negative ng/mL Negative 11 Urine Opiates Negative ng/mL Negative 12 Urine Phencyclidine Negative ng/mL Cutoff: 25 Urine Tetrahydrocannabinol Negative ng/mL Cutoff: 50 13 Urine Benzodiazepines 10/12/2019 [facility] Urine Lorazepam 380 ng/mL [address] GC/MS [place], [place] [id number] [phone] Urine Nordiazepam GC/MS See Comment ng/mL 15 [...] Benzodiazepine Interp Positive. 22 Laboratory test 09/22/2019 [facility] Hemoglobin A1c 7.0 5-7 finding Ethanol, Urine 09/22/2019 [facility] Ethanol-by GC-Fid 17 mg/dL Cutoff: [address] [place] [address] [phone] Urine Etoh Interpretation Positive. 23 Drug Abuse 09/22/2019 [facility] Urine Presumptive Abnormal Cutoff: 24 W/Confirm, Ur [address] Alcohol Posi <SEE 10 [place] [address] NOTE> mg/dL [phone] Urine Amphetamine Negative ng/mL 25 Urine Barbiturates Negative ng/mL 26 Urine Benzodiazepines Negative ng/mL 27 Urine Cocaine Negative ng/mL 28 Urine Methadone Negative ng/mL Negative 29 Urine Opiates Negative ng/mL Negative 30 Urine Phencyclidine Negative ng/mL Cutoff: 25 Urine Tetrahydrocannabinol Negative ng/mL Cutoff: 50 31 Urine Microalbumin 09/22/2019 [facility] Ur Microalbumin 40.3 mg /L Random [address] (mg/L) [place] [address] [phone] Urine Creatinine 59.44 mg/dL Urine Microalbumin/Creatinine 67.7 High <31 Basic Metabolic 09/22/2019 [facility] Sodium 141 mmol/L Normal 135-145 Panel [address] [place] [address] [phone] Potassium 4.3 mmol/L Normal 3.5-5.0 Chloride 99 mmol/L Low 101-111 Co2 Carbon Dioxide 29 mmol/L Normal 22-32 Anion Gap 13 mmol/L High 2-11 Glucose 154 mg/dL High 70-100 Blood Urea Nitrogen 16 mg/dL Normal 6-24 Creatinine 0.96 mg/dL Normal 0.67-1.17 BUN/Creatinine Ratio 16.7 Normal 8-20 Calcium 9.5 mg/dL Normal 8.6-10.3 Egfr Non- 80.2 >60 Egfr 97.0 >60 32 Laboratory test 07/06/2019 [facility] Hemoglobin A1c 7.5 High 5-7 finding Laboratory test 06/25/2019 [facility] Surgical SEE RESULT 33 finding [address] [facility] [place] [address] [phone] Laboratory test 06/25/2019 [facility] Point of Care 121 mg/dL High 70-100 34 finding [address] [facility] [place] [address] [phone] Laboratory test 06/21/2019 [facility] PSA Diagnostic 1.935 ng/ mL Normal 0-4.0 35 finding [address] [place] [address] [phone] 1 Specimen Hemolyzed. Result may not be valid. Unable to report test result due to hemolysis. 2 Standard intensity warfarin therapeutic range: 2.0-3.0 High intensity warfarin therapeutic range: 2.5-3.5 3 Troponin-I testing on Plasma Separator Tubes (PST) has a known false positive rate of 0.20-0.40%. All positive troponins reflex immediately to secondary confirmatory testing. Using the [employer] DxI 800 Access Immunoassay systems, the 99th [...] This test has been modified from the oil heaterman's instructions. Its performance characteristics were determined by [facility] in a manner consistent with CLIA requirements. This test has not been cleared or approved by the U.S. Food and Drug Administration. Test Performed by: [facility] [address] [place] [address] Reel Film Inspector: Raymon Self M.D. Ph.D.; CLIA# [id number] REFERENCE VALUE Cutoff: 100 15 Unknown [...] developed and its performance characteristics determined by [facility] in a manner consistent with CLIA requirements. This test has not been cleared or approved by the U.S. Food and Drug Administration. Test Performed by: [facility] [place] [address] Reel Film Inspector: Raymon Self M.D. Ph.D.; CLIA# [id number] 23 ADDITIONAL INFORMATION This report is intended for use in clinical monitoring and management of patients. It is not intended for use in employment-related testing. This test was developed and its performance characteristics determined by [facility] in a manner consistent with CLIA requirements. This test has not been cleared or approved by the U.S. Food and Drug Administration. Test Performed by: [facility] [place] [address] Reel Film Inspector: Raymon Self M.D. Ph.D.; CLIA# [id number] 24 Presumptive Positive Drug confirmation to follow. [...] This test has been modified from the oil heaterman's instructions. Its performance characteristics were determined by [facility] in a manner consistent with CLIA requirements. This test has not been cleared or approved by the U.S. Food and Drug Administration. Test Performed by: [facility] [place] [address] Reel Film Inspector: Raymon Self M.D. Ph.D.; CLIA# [id number] 32 Because ethnic data is not always [...] [address]: Patricia Fontana MD Acct: [id number] Unit: [id number] AGE: 59 Location: ENDO Re06/25/19 SEX: M Status: DEP REF SPEC: [id number] AYLA: 06/25/19- SUBM DR: Patricia Glover MD REQ: [id number] RECD: 06/25/19 STATUS: DEJA AGARWAL DR: Jigna [...] CONTINUED ON NEXT PAGE DEPARTMENT OF PATHOLOGY, [address] [place] [address] Tommie Grajeda M.D. Director [facility] # [id number] CLINICAL HISTORY History of polyps POST-OPERATIVE DIAGNOSIS [...] CONTINUED ON NEXT PAGE DEPARTMENT OF PATHOLOGY, [address] [place] [address] Tommie Grajeda M.D. Director [facility] # [id number] Signed by and Reported on: Tommie Grajeda MD 1210 END OF REPORT DEPARTMENT OF PATHOLOGY, [facility] [employer] [place], [place] [address] Tommie Grajeda M.D. Director [facility] # [id number] Disease Management Nurse: [id number] Serum levels of PSA measured using the [employer] DXI Hybritech immunoassay should not be interpreted as absolute evidence of the presence or absence of disease. The PSA value should be used in conjunction with other pertinent clinical diagnostic procedures. The values obtained with different assay methods or kits cannot be used interchangeably. Procedures Date Code Description Status 11/17/2019 05117 ECHO Transthoracic, Real-Time 2D With Doppler And Completed Color Flow 11/17/2019 00823 ECHO Transthoracic, Real-Time 2D With Doppler And Completed Color Flow 11/16/2019 37004 Inject/Drain Joint/Bursa Major W/O US Completed 11/03/2019 94317 Holter Monitor Review (24 hr)dr review & interp only Completed 10/21/2019 86117 ECG Monitor/Recording W/Visual Superimposition Completed Scanning 10/21/2019 54759 ECG Monitor/Recording W/Visual Superimposition Completed Scanning 09/13/2019 87210 EKG Tracing & Interpretation Completed 06/25/2019 [id number] Colonoscopy Completed 12/03/2018 297508404 Diabetic Retinal Eye Exam Completed 08/18/2018 [id number] Diabetic Foot Exam Completed 08/05/2018 [id number] Diabetic Retinal Eye Exam Completed 02/22/2000 [id number] Diabetic Retinal Eye Exam Completed Medical Devices Description No Information Available Encounters Type Date Location Provider Dx Diagnosis Office Visit 12/06/2019 [facility] Yasmine Abdiuman, F10.29 Alcohol dependence 1:20p [employer] with unspecified alcohol-induced disorder I25.5 Ischemic cardiomyopathy R00.0 Tachycardia, unspecified E78.5 Hyperlipidemia, unspecified Office Visit 11/16/2019 [facility] Edson Woodard S46.012A Strain of 3:00p at Felisha Beltran MD musc/tend the rotator cuff of left shoulder, init Office Visit 11/06/2019 [facility] Cornelia Reece, F10.239 Alcohol 1:35p Assoc,pc [employer] dependence with Hospitalists withdrawal, unspecified N17.9 Acute kidney failure, unspecified E87.6 Hypokalemia E83.42 Hypomagnesemia E78.1 Pure hyperglyceridemia R74.0 Nonspec elev of levels of transamns & lactic acid dehydrgnse R11.2 Nausea with vomiting, unspecified Office Visit 11/05/2019 [facility] Cornelia Reece, F10.239 Alcohol 1:34p Assoc,pc [employer] dependence with Hospitalists withdrawal, unspecified E87.6 Hypokalemia E78.1 Pure hyperglyceridemia E83.42 Hypomagnesemia R74.0 Nonspec elev of levels of transamns & lactic acid dehydrgnse Office Visit 11/04/2019 [facility] Cornelia Reece, F10.239 Alcohol 1:29p Assoc,pc [employer] dependence with Hospitalists withdrawal, unspecified E78.1 Pure hyperglyceridemia E83.42 Hypomagnesemia R74.0 Nonspec elev of levels of transamns & lactic acid dehydrgnse Office Visit 11/03/2019 [facility] Annie N17.9 Acute kidney 1:28p Assoc,pc MIRYAM Singleton failure, Hospitalists unspecified R11.2 Nausea with vomiting, unspecified R10.9 Unspecified abdominal pain Office Visit 10/12/2019 9:30a [facility] Internal Sandee M25.512 Pain in left Medicine - Neville Jovel MD shoulder E11.9 Type 2 diabetes mellitus without complications I10 Essential (primary) hypertension F10.11 Alcohol abuse, in remission Office Visit 09/22/2019 2:00p [facility] Internal Sandee E11.9 Type 2 diabetes Temitope Jovel MD mellitus without Ccmob complications I10 Essential (primary) hypertension W00.9xxD Unspecified fall due to ice and snow, subsequent encounter Z23 Encounter for immunization F32.9 Major depressive disorder, single episode, unspecified Office Visit 09/14/2019 11:30a [facility] Internal Sandee W00.9xxA Unspecified fall Temitope Jovel MD due to ice and Ccmob snow, initial encounter E11.9 Type 2 diabetes mellitus without complications S49.92xA Unsp injury of left shoulder and upper arm, init encntr Office Visit 09/13/2019 1:20p [facility] Yasmine Stevenson, I10 Essential (primary) [employer] hypertension F10.10 Alcohol abuse, uncomplicated I25.10 Athscl heart disease of [place] coronary artery w/o ang pctrs E78.5 Hyperlipidemia, unspecified R00.0 Tachycardia, unspecified Office Visit 07/06/2019 11:40a [facility] Internal Jigna Howellnte, E11.9 Type 2 diabetes Temitope Arrington MD mellitus without Ccmob complications I10 Essential (primary) hypertension F10.10 Alcohol abuse, uncomplicated Z23 Encounter for immunization Assessments Date Code Description Provider 12/06/2019 F10.29 Alcohol dependence with unspecified Yasmine Thuman, [employer] alcohol-induced disorder 12/06/2019 I25.5 Ischemic cardiomyopathy Yasmine Thuman, [employer] 12/06/2019 R00.0 Tachycardia, unspecified Yasmine Thuman, [employer] 12/06/2019 E78.5 Hyperlipidemia, unspecified Yasmine Thuman, [employer] 11/17/2019 I25.5 Ischemic cardiomyopathy Anju Phelps M.D. [...] F10.239 Alcohol dependence with withdrawal, Cornelia Reece, [employer]IAN unspecified 11/06/2019 N17.9 Acute kidney failure, unspecified Cornelia Reece, [employer] 11/06/2019 E87.6 Hypokalemia Cornelia Reece, [employer]IAN 11/06/2019 E83.42 Hypomagnesemia Cornelia Reece, [employer] 11/06/2019 E78.1 Pure hyperglyceridemia Cornelia Reece, [employer]IAN 11/06/2019 R74.0 Nonspecific elevation of levels of Cornelia Reece, [employer]IAN transaminase and lactic acid dehydrogenase [LDH] 11/06/2019 R11.2 Nausea with vomiting, unspecified Cornelia Reece, [employer]IAN 11/05/2019 F10.239 Alcohol dependence with withdrawal, Cornelia Reece, [employer]IAN unspecified 11/05/2019 E87.6 Hypokalemia Cornelia Reece, [employer]IAN 11/05/2019 E78.1 Pure hyperglyceridemia Cornelia Reece, [employer]ICIAN 11/05/2019 E83.42 Hypomagnesemia Cornelia Reece, [employer]IAN 11/05/2019 R74.0 Nonspecific elevation of levels of Cornelia Reece, [employer]ICIAN transaminase and lactic acid dehydrogenase [LDH] 11/04/2019 F10.239 Alcohol dependence with withdrawal, Cornelia Reece, [employer]ICIAN unspecified 11/04/2019 E78.1 Pure hyperglyceridemia Cornelia Reece, [employer]ICIAN 11/04/2019 E83.42 Hypomagnesemia Cornelia Reece, [employer] E[employer]RICIAN 11/04/2019 R74.0 Nonspecific elevation of levels of Cornelia Reece, [employer] E[employer]ICIAN transaminase and lactic acid dehydrogenase [LDH] 11/03/2019 N17.9 Acute kidney failure, unspecified Annie Singleton PA 11/03/2019 R11.2 Nausea with vomiting, unspecified Annie Singleton PA 11/03/2019 R10.9 Unspecified abdominal pain MIRYAM Mckeon [...] HOANG 09/13/2019 I25.10 Atherosclerotic heart disease of [place] Yasmine Stevenson NP coronary artery with 09/13/2019 E78.5 Hyperlipidemia, unspecified Yasmine Stevenson, [employer] 09/13/2019 R00.0 Tachycardia, unspecified Yasmine Stevenson [employer]IAN 07/06/2019 E11.9 Type 2 diabetes mellitus without Jigna Cuello MD complications 07/06/2019 I10 Essential (primary) hypertension Jigna Cuello MD 07/06/2019 F10.10 Alcohol abuse, uncomplicated Jigna Cuello MD 07/06/2019 Z23 Encounter for immunization Jigna Cuello MD Plan of Treatment Future Appointment(s):12/28/2019 9:45 am - [facility]12/06/2019 - Yasmine Stevenson NPF10.29 Alcohol dependence with unspecified alcohol-induced aueelwvaL63.5 Ischemic dffqpckulmpyowG54.0 Tachycardia, unspecifiedRecommendations:You appear to be actively with [...] room provider ( Summer) who agree with tahmenatqjC76.5 Hyperlipidemia, unspecified Functional Status Description No Information Available Mental Status Description No Information Available Referrals Refer to Reason for Referral Status Appt Date Nghia Cook MD Sent 11/04/2019 [address] [place] [address] [phone] [facility] Sent [address] [place] [address] [phone]
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
[2019-12-16] MEDS ORDERED: HYDROcodone/ACETAMIN 5-325 MG* 1 TAB PO ONE (14:46)
[2019-12-16 14:52] LABS: Hematocrit 39 % (42-52); Hemoglobin 13.2 g/dL (14.0-18.0); Mean Corpuscular HGB Conc 34 g/dL (31-36); Mean Corpuscular Hemoglobin 32 pg (27-31); Mean Corpuscular Volume 94 fL (80-94); Platelet Count 242 10^3/uL (150-450); Red Blood Count 4.18 10^6 /uL (4.18-5.48); Red Cell Distribution Width 17 % (10-15); White Blood Count 6.6 10^3/uL (3.5-10.8)
[2019-12-16 15:07] LABS: Albumin 4.2 g/dL (3.2-5.2); Albumin/Globulin Ratio 1.2 (1-3); BUN/Creatinine Ratio 13.4 (8-20); CRP High Sensitivity 9.06 mg/L (<2.00); Calcium 8.4 mg/dL (8.6-10.3); EGFR African American 95.9 (>60); EGFR Non-African American 79.2 (>60); Globulin 3.5 g/dL (2-4); Potassium 3.3 mmol/L (3.5-5.0); Total Protein 7.7 g/dL (6.4-8.9); Uric Acid 6.3 mg/dL (4.4-7.6)
[2019-12-16 18:19] VITALS: BP 131/88
== END 2019-12-16 17:15 | disposition home or self-care (01) ==
LOC: ED 13:34
DX: S70.02XA Contusion of left hip, initial encounter (principal); M54.16 Radiculopathy, lumbar region; M48.00 Spinal stenosis, site unspecified; M25.552 Pain in left hip; E11.9 Type 2 diabetes mellitus without complications; I25.2 Old myocardial infarction; I25.10 Atherosclerotic heart disease of native coronary artery without angina pectoris; E78.00 Pure hypercholesterolemia, unspecified; I10 Essential (primary) hypertension; J44.9 Chronic obstructive pulmonary disease, unspecified; K21.9 Gastro-esophageal reflux disease without esophagitis; F43.10 Post-traumatic stress disorder, unspecified; Z87.442 Personal history of urinary calculi; Z86.73 Personal history of transient ischemic attack (TIA), and cerebral infarction without residual deficits; Z79.82 Long term (current) use of aspirin; Z88.2 Allergy status to sulfonamides; Z88.8 Allergy status to other drugs, medicaments and biological substances; W17.89XA Other fall from one level to another, initial encounter; Y92.9 Unspecified place or not applicable
CPT/HCPCS: 36415; 72148; 80053; 84550; 85027; 86141; 99283

== ENCOUNTER 2020-04-22 19:09 | Inpatient (IN) ==
[2020-04-22] MEDS: NS 0.9% 1000 ml BAG 3,000 ML IV ONE (19:43)
[2020-04-22 20:18] LABS: ABS Eosinophils 0.2 10^3/ul (0-0.6); ABS Lymphocytes 2.5 10^3/ul (1.0-4.8); ABS Monocytes 1.3 10^3/ul (0-0.8); ABS Neutrophils 3.2 10^3/ul (1.5-7.7); Eosinophil % 2.8 %; Hematocrit 33 % (42-52); Hemoglobin 11.2 g/dL (14.0-18.0); Lymphocyte % 34.4 %; Mean Corpuscular HGB Conc 34 g/dL (31-36); Mean Corpuscular Hemoglobin 32 pg (27-31); Mean Corpuscular Volume 93 fL (80-94); Mean Platelet Volume 7.3 fL (7.4-10.4); Nucleated Red Blood Cells % 0.1; Platelet Count 271 10^3/uL (150-450); Red Blood Count 3.55 10^6 /uL (4.18-5.48); Red Cell Distribution Width 18 % (10-15); White Blood Count 7.2 10^3/uL (3.5-10.8)
[2020-04-22 20:24] LABS: INR 1.23 (0.82-1.09)
[2020-04-22 20:42] LABS: Urine Appearance Cloudy; Urine Bilirubin Negative (Negative); Urine Blood Negative (Negative); Urine Color Yellow; Urine Glucose 1+(50 mg/dL) (Negative); Urine Ketones Negative (Negative); Urine Nitrite Negative (Negative); Urine Protein 1+(30 mg/dL) (Negative); Urine Specific Gravity 1.005 (1.010-1.030); Urine Urobilinogen Negative (Negative)
[2020-04-22 20:44] LABS: Albumin 3.5 g/dL (3.2-5.2); Albumin/Globulin Ratio 1.5 (1-3); BUN/Creatinine Ratio 8.8 (8-20); Calcium 7.9 mg/dL (8.6-10.3); EGFR African American 59.3 (>60); Globulin 2.4 g/dL (2-4); Potassium 3.6 mmol/L (3.5-5.0); Total Bilirubin 0.4 mg/dL (0.2-1.0); Total Protein 5.9 g/dL (6.4-8.9)
[2020-04-22 20:47] LABS: Urine Bacteria Absent (Absent); Urine Red Blood Cell Trace(0-2/hpf) (Absent); Urine Squamous Epithelial Cell Present (Absent); Urine White Blood Cell Trace(0-5/hpf) (Absent)
[2020-04-22] MEDS ORDERED: Thiamine 100 MG/ML 2 ml VIAL (200 mg) IM ONE (21:01)
[2020-04-22 21:07] LABS: Urine Benzodiazepine Screen Presumptive Positive (None Detect); Urine Cannabinoids Screen None Detected (None Detect); Urine Opiates Screen None Detected (None Detect)
[2020-04-22 21:30] LABS: Magnesium 1.3 mg/dL (1.9-2.7)
[2020-04-22] MEDS ORDERED: Ondansetron 4 mg VIAL 2 MG/ML 2 ml VIAL IV PRN (21:43)
[2020-04-22] MEDS ORDERED: CMC:Doxepin 25 mg CAP (NF) PO PRN (21:46)
[2020-04-22] MEDS ORDERED: Dextrose 50% Syringe 50 ml 25 GM/50 ML SYRINGE IV PUSH PRN (22:02)
[2020-04-22] MEDS ORDERED: Magnesium Sulfate IV 3 GM in NS 0.9% 100 ml BAG 100 ML IVPB ONE (22:13)
[2020-04-22 22:59] LABS: Folate 12.09 ng/mL (>3.99)
[2020-04-22] MEDS: NS 0.9% 1000 ml BAG 1,000 ML IV SCH (23:55)
[2020-04-23] MEDS ORDERED: NS 0.9% 1000 ml BAG 1,000 ML IV ONE (00:22)
[2020-04-23 05:48] LABS: ABS Basophils 0.3 10^3/ul (0-0.2); ABS Eosinophils 0.3 10^3/ul (0-0.6); ABS Lymphocytes 2.7 10^3/ul (1.0-4.8); ABS Monocytes 0.8 10^3/ul (0-0.8); ABS Neutrophils 2.4 10^3/ul (1.5-7.7); Eosinophil % 4.1 %; Hematocrit 34 % (42-52); Hemoglobin 11.6 g/dL (14.0-18.0); Lymphocyte % 42.1 %; Mean Corpuscular HGB Conc 34 g/dL (31-36); Mean Corpuscular Hemoglobin 32 pg (27-31); Mean Corpuscular Volume 92 fL (80-94); Nucleated Red Blood Cells % 0.3; Platelet Count 239 10^3/uL (150-450); Red Blood Count 3.67 10^6 /uL (4.18-5.48); Red Cell Distribution Width 18 % (10-15); White Blood Count 6.5 10^3/uL (3.5-10.8)
[2020-04-23 06:07] LABS: Albumin 3.5 g/dL (3.2-5.2); Albumin/Globulin Ratio 1.3 (1-3); BUN/Creatinine Ratio 10.6 (8-20); Calcium 7.6 mg/dL (8.6-10.3); EGFR African American 99.4 (>60); EGFR Non-African American 82.1 (>60); Globulin 2.6 g/dL (2-4); HDL Cholesterol 54.2 mg/dL; Potassium 3.7 mmol/L (3.5-5.0); Total Bilirubin 0.3 mg/dL (0.2-1.0); Total Protein 6.1 g/dL (6.4-8.9)
[2020-04-23 06:10] LABS: INR 1.16 (0.82-1.09)
[2020-04-23] MEDS: Lactated Ringers 1000 ml BAG 2,000 ML IV ONE ×2 (06:20→08:35)
[2020-04-23] MEDS: Multivitamins/Minerals TAB PO SCH (08:12)
[2020-04-23] MEDS: Aspirin EC 81 mg TAB.EC (enteric coated) PO SCH (08:13)
[2020-04-23] MEDS: Venlafaxine XR 75 mg PO SCH (08:13)
[2020-04-23] MEDS ORDERED: Lactated Ringers 1000 ml BAG 1,000 ML IV SCH (11:00)
[2020-04-23] MEDS: NS 0.9% 1000 ml BAG 1,000 ML IV SCH (12:21)
[2020-04-24 07:46] LABS: Calcium 9.2 mg/dL (8.6-10.3); EGFR African American 116.4 (>60); EGFR Non-African American 96.2 (>60); Magnesium 1.5 mg/dL (1.9-2.7); Potassium 3.8 mmol/L (3.5-5.0)
[2020-04-24] MEDS: Venlafaxine XR 75 mg PO SCH (08:28)
[2020-04-24] MEDS: Aspirin EC 81 mg TAB.EC (enteric coated) PO SCH (08:28)
[2020-04-24] MEDS: Multivitamins/Minerals TAB PO SCH (08:28)
[2020-04-24] MEDS ORDERED: Magnesium Sulfate 2 gm BAG 2 GM/50 ML BAG IVPB ONE (08:44)
[2020-04-24 14:34] VITALS: BP 132/82
== END 2020-04-24 13:40 | disposition home or self-care (01) | DRG 315 ==
LOC: ED 19:09 → MED 22:08
PROVIDERS: ADMIT Internal Medicine; ATTEND Internal Medicine

== ENCOUNTER 2020-05-25 20:33 | Inpatient (IN) ==
[2020-05-25] MEDS ORDERED: NS 0.9% 1000 ml BAG 2,000 ML IV ONE ×3 (20:42→23:19)
[2020-05-25 20:57] LABS: ABS Basophils 0.1 10^3/ul (0-0.2); ABS Eosinophils 0.3 10^3/ul (0-0.6); ABS Lymphocytes 2.7 10^3/ul (1.0-4.8); ABS Monocytes 0.9 10^3/ul (0-0.8); ABS Neutrophils 5.8 10^3/ul (1.5-7.7); Eosinophil % 3.5 %; Hematocrit 36 % (42-52); Hemoglobin 11.8 g/dL (14.0-18.0); Lymphocyte % 27.9 %; Mean Corpuscular HGB Conc 33 g/dL (31-36); Mean Corpuscular Hemoglobin 31 pg (27-31); Mean Corpuscular Volume 93 fL (80-94); Mean Platelet Volume 7.2 fL (7.4-10.4); Platelet Count 191 10^3/uL (150-450); Red Blood Count 3.85 10^6 /uL (4.18-5.48); Red Cell Distribution Width 17 % (10-15); White Blood Count 9.9 10^3/uL (3.5-10.8)
[2020-05-25 21:26] LABS: ALT 36 U/L (7-52); AST 44 U/L (13-39); Albumin 3.8 g/dL (3.2-5.2); Albumin/Globulin Ratio 1.6 (1-3); Alkaline Phosphatase 73 U/L (34-104); Anion Gap 13 mmol/L (2-11); BUN/Creatinine Ratio 11.2 (8-20); Blood Urea Nitrogen 41 mg/dL (6-24); CO2 Carbon Dioxide 23 mmol/L (22-32); Calcium 7.8 mg/dL (8.6-10.3); Chloride 103 mmol/L (101-111); EGFR African American 20.6 (>60); EGFR Non-African American 17.1 (>60); Globulin 2.4 g/dL (2-4); Glucose 134 mg/dL (70-100); Potassium 4.8 mmol/L (3.5-5.0); Sodium 139 mmol/L (135-145); Total Protein 6.2 g/dL (6.4-8.9)
[2020-05-25] MEDS ORDERED: Norepinephrine 16MCG/ML IVPRE 4,000 MCG/250 ML BAG IV SCH ×2 (22:00→23:45)
[2020-05-25 22:03] LABS: Acetaminophen < 15 mcg/mL; Alcohol, S < 10 mg/dL (<10); Salicylate < 2.50 mg/dL (<30)
[2020-05-25 22:19] LABS: TSH Ultra Thyroid Stim Horm 12.64 mcIU/mL (0.34-5.60)
[2020-05-25] MEDS ORDERED: Hydrocortisone INJ 100 MG/2ML 2 ML VIAL IV ONE (22:43)
[2020-05-25 22:49] LABS: Troponin I 0.01 ng/mL (<0.03)
[2020-05-25 22:52] LABS: Creatine Kinase 125 U/L (10-223)
[2020-05-25] MEDS ORDERED: Ondansetron 4 mg VIAL 2 MG/ML 2 ml VIAL IV PRN (23:30)
[2020-05-25 23:45] LABS: Urine Appearance Cloudy; Urine Bilirubin Negative (Negative); Urine Blood Negative (Negative); Urine Color Yellow; Urine Glucose Negative (Negative); Urine Ketones Negative (Negative); Urine Nitrite Negative (Negative); Urine Protein Negative (Negative); Urine Specific Gravity 1.015 (1.010-1.030); Urine Urobilinogen Negative (Negative)
[2020-05-25] MEDS ORDERED: Dextrose 50% Syringe 50 ml 25 GM/50 ML SYRINGE IV PUSH PRN (23:45)
[2020-05-25 23:47] LABS: Urine Bacteria Absent (Absent); Urine Red Blood Cell Trace(0-2/hpf) (Absent); Urine Squamous Epithelial Cell Present (Absent); Urine White Blood Cell 1+(6-10/hpf) (Absent)
[2020-05-26] LABS: Urine Benzodiazepine Screen Presumptive Positive (None Detect); Urine Cannabinoids Screen None Detected (None Detect); Urine Opiates Screen None Detected (None Detect)
[2020-05-26 00:50] LABS: C Reactive Protein < 1.00 mg/L (<8.01)
[2020-05-26 01:19] LABS: Erythrocyte Sed Rate 4 mm/Hr (0-19)
[2020-05-26 01:31] LABS: T4, Total 5.84 mcg/dL (6.09-12.23)
[2020-05-26 01:36] LABS: Free T4 0.65 ng/dL (0.61-1.12)
[2020-05-26] MEDS: NS 0.9% 1000 ml BAG 1,000 ML IV SCH ×2 (01:39→09:10)
[2020-05-26 01:40] LABS: Total T3 105 ng/dL (87-178)
[2020-05-26] MEDS: Nicotine PATCH 21 MG/24 HR PATCH TRANSDERM SCH (01:53)
[2020-05-26 02:38] LABS: Activated Partial Thrombo Time 32.9 seconds (26.0-38.0); INR 1.24 (0.82-1.09)
[2020-05-26 02:42] LABS: Urine Creatinine Concentration 37.62 mg/dL
[2020-05-26] MEDS ORDERED: Lorazepam PYXIS KEY PRN ×2 (03:58→04:48)
[2020-05-26] MEDS: LORazepam 2 mg VIAL 1 ml IV PUSH SCH ×5 (04:06→22:10)
[2020-05-26] MEDS ORDERED: LORazepam 2 mg VIAL 1 ml IV PUSH ONE (04:48)
[2020-05-26] MEDS ORDERED: LORazepam 2 mg VIAL 1 ml ONE (04:50)
[2020-05-26] MEDS: Heparin 5000 UNITS/ML 1 mL VIAL SUBCUT SCH ×3 (05:02→22:22)
[2020-05-26 05:14] LABS: ABS Monocytes 0.3 10^3/ul (0-0.8); ABS Neutrophils 7.2 10^3/ul (1.5-7.7); Eosinophil % 0.3 %; Hematocrit 33 % (42-52); Hemoglobin 10.8 g/dL (14.0-18.0); Lymphocyte % 11.2 %; Mean Corpuscular HGB Conc 33 g/dL (31-36); Mean Corpuscular Hemoglobin 31 pg (27-31); Mean Corpuscular Volume 94 fL (80-94); Mean Platelet Volume 7.2 fL (7.4-10.4); Platelet Count 169 10^3/uL (150-450); Red Cell Distribution Width 17 % (10-15); White Blood Count 8.5 10^3/uL (3.5-10.8)
[2020-05-26] MEDS: Dexmedetomidine 1,000 MCG in NS 0.9% 250 ml 240 ML IV SCH (05:26)
[2020-05-26 05:31] LABS: BUN/Creatinine Ratio 13.6 (8-20); Calcium 6.6 mg/dL (8.6-10.3); EGFR African American 38.5 (>60); EGFR Non-African American 31.9 (>60); Potassium 4.1 mmol/L (3.5-5.0)
[2020-05-26] MEDS ORDERED: Aspirin EC 81 mg TAB.EC (enteric coated) PO SCH (09:00)
[2020-05-26] MEDS: Multivitamins/Minerals TAB PO SCH (10:17)
[2020-05-26] MEDS ORDERED: Perflutren Lipid Microsphere 3 ML VIAL ONE (11:02)
[2020-05-26] MEDS ORDERED: Folic Acid 1 mg SYRINGE 0.2 ML SYRINGE IV SCH (12:00)
[2020-05-26] MEDS: Thiamine 100 MG/ML 2 ml VIAL 250 MG in NS 0.9% 100 ml BAG 100 ML IV SCH (12:34)
[2020-05-26] MEDS: FOLIC ACID IVPB SCH (12:56)
[2020-05-26] MEDS: NS 0.9% IVPB SCH (12:56)
[2020-05-26 20:16] LABS: ABS Basophils 0.1 10^3/ul (0-0.2); ABS Eosinophils 0.1 10^3/ul (0-0.6); ABS Lymphocytes 1.5 10^3/ul (1.0-4.8); ABS Monocytes 0.3 10^3/ul (0-0.8); ABS Neutrophils 6.8 10^3/ul (1.5-7.7); Eosinophil % 1.4 %; Hematocrit 31 % (42-52); Mean Corpuscular HGB Conc 35 g/dL (31-36); Mean Corpuscular Hemoglobin 32 pg (27-31); Mean Corpuscular Volume 92 fL (80-94); Mean Platelet Volume 7.1 fL (7.4-10.4); Platelet Count 132 10^3/uL (150-450); Red Blood Count 3.41 10^6 /uL (4.18-5.48); Red Cell Distribution Width 17 % (10-15); White Blood Count 8.8 10^3/uL (3.5-10.8)
[2020-05-26 20:38] LABS: BUN/Creatinine Ratio 13.7 (8-20); Calcium 6.7 mg/dL (8.6-10.3); EGFR African American 76.9 (>60); EGFR Non-African American 63.6 (>60); Magnesium 1.1 mg/dL (1.9-2.7); Phosphorus 1.6 mg/dL (2.5-5.0); Potassium 3.2 mmol/L (3.5-5.0)
[2020-05-26 20:40] LABS: Myoglobin 96.6 ng/mL (17.4-105.7)
[2020-05-26] MEDS ORDERED: Magnesium Sulf 4 GM/100 ML IV 4,000 MG/100 ML BAG IVPB ONE (22:02)
[2020-05-26] MEDS ORDERED: Sodium Phosphate IV 20 MMOLE in NS 0.9% 250 ml 250 ML IVPB ONE (22:04)
[2020-05-26] MEDS ORDERED: KCL 20 MEQ/100 ML IVPREMIX 20 MEQ/100 ML BAG IV SCH (22:30)
[2020-05-27] MEDS: LORazepam 2 mg VIAL 1 ml IV PUSH SCH ×2 (00:05→02:20)
[2020-05-27] MEDS ORDERED: Potassium Phosphate IV 15 MMOLE in NS 0.9% 250 ml 250 ML IVPB ONE (00:30)
[2020-05-27] MEDS: Heparin 5000 UNITS/ML 1 mL VIAL SUBCUT SCH ×3 (05:35→21:06)
[2020-05-27 06:09] LABS: BUN/Creatinine Ratio 9.8 (8-20); Calcium 7.2 mg/dL (8.6-10.3); EGFR Non-African American 95.8 (>60); Magnesium 1.8 mg/dL (1.9-2.7); Phosphorus 2.8 mg/dL (2.5-5.0); Potassium 3.5 mmol/L (3.5-5.0)
[2020-05-27] MEDS: Nicotine PATCH 21 MG/24 HR PATCH TRANSDERM SCH (08:32)
[2020-05-27] MEDS: Pantoprazole VIAL 40 MG VIAL IV SCH (08:33)
[2020-05-27] MEDS ORDERED: Piperacillin/Tazobac ADVAN 3.375 GM in NS 0.9% 100 ml BAG 100 ML IVPB ONE (09:08)
[2020-05-27] MEDS: Multivitamins/Minerals TAB PO SCH (09:13)
[2020-05-27] MEDS ORDERED: Zosyn per Pharmacy NOTE FOLLOW UP SCH (10:00)
[2020-05-27] MEDS: Dexmedetomidine 1,000 MCG in NS 0.9% 250 ml 240 ML IV SCH (11:43)
[2020-05-27] MEDS ORDERED: Lactated Ringers 1000 ml BAG 1,000 ML IV ONE (12:47)
[2020-05-27] MEDS: NS 0.9% IVPB SCH (13:48)
[2020-05-27] MEDS: FOLIC ACID IVPB SCH (13:48)
[2020-05-27] MEDS: Thiamine 100 MG/ML 2 ml VIAL 250 MG in NS 0.9% 100 ml BAG 100 ML IV SCH (14:37)
[2020-05-28] MEDS: Heparin 5000 UNITS/ML 1 mL VIAL SUBCUT SCH ×3 (05:49→22:04)
[2020-05-28 06:11] LABS: ABS Eosinophils 0.2 10^3/ul (0-0.6); ABS Lymphocytes 1.2 10^3/ul (1.0-4.8); ABS Monocytes 0.4 10^3/ul (0-0.8); ABS Neutrophils 4.9 10^3/ul (1.5-7.7); Eosinophil % 3.2 %; Hematocrit 35 % (42-52); Hemoglobin 12.3 g/dL (14.0-18.0); Lymphocyte % 18.2 %; Mean Corpuscular HGB Conc 35 g/dL (31-36); Mean Corpuscular Hemoglobin 32 pg (27-31); Mean Corpuscular Volume 90 fL (80-94); Mean Platelet Volume 7.3 fL (7.4-10.4); Platelet Count 125 10^3/uL (150-450); Red Blood Count 3.91 10^6 /uL (4.18-5.48); Red Cell Distribution Width 17 % (10-15); White Blood Count 6.8 10^3/uL (3.5-10.8)
[2020-05-28 06:28] LABS: BUN/Creatinine Ratio 9.3 (8-20); Calcium 7.8 mg/dL (8.6-10.3); EGFR African American 128.5 (>60); EGFR Non-African American 106.2 (>60); Magnesium 1.3 mg/dL (1.9-2.7); Potassium 3.3 mmol/L (3.5-5.0)
[2020-05-28] MEDS: Pantoprazole VIAL 40 MG VIAL IV SCH (08:18)
[2020-05-28] MEDS: Nicotine PATCH 21 MG/24 HR PATCH TRANSDERM SCH (08:18)
[2020-05-28] MEDS: NS 0.9% IVPB SCH (08:54)
[2020-05-28] MEDS: FOLIC ACID IVPB SCH (08:54)
[2020-05-28] MEDS ORDERED: Influenza VAC *QUAD* 2020-21* 0.5 ML SYRINGE IM ONE (09:00)
[2020-05-28] MEDS: Dexmedetomidine 1,000 MCG in NS 0.9% 250 ml 240 ML IV SCH (09:31)
[2020-05-28] MEDS ORDERED: Magnesium Sulf 4 GM/100 ML IV 4,000 MG/100 ML BAG IVPB ONE (10:15)
[2020-05-28] MEDS: KCL 20 MEQ/100 ML IVPREMIX 20 MEQ/100 ML BAG IV SCH ×2 (10:31→13:15)
[2020-05-28] MEDS ORDERED: HYDROmorphone 1 MG/1 ML SYRINGE IV SLOW PU ONE (10:41)
[2020-05-29] MEDS: Heparin 5000 UNITS/ML 1 mL VIAL SUBCUT SCH ×3 (06:20→22:09)
[2020-05-29 07:52] LABS: BUN/Creatinine Ratio 14.4 (8-20); Calcium 8.9 mg/dL (8.6-10.3); EGFR African American 104.2 (>60); EGFR Non-African American 86.1 (>60); Magnesium 1.7 mg/dL (1.9-2.7); Potassium 3.8 mmol/L (3.5-5.0)
[2020-05-29 08:19] LABS: ABS Basophils 0.1 10^3/ul (0-0.2); ABS Eosinophils 0.2 10^3/ul (0-0.6); ABS Lymphocytes 1.4 10^3/ul (1.0-4.8); ABS Monocytes 0.4 10^3/ul (0-0.8); Hematocrit 37 % (42-52); Hemoglobin 12.7 g/dL (14.0-18.0); Lymphocyte % 22.9 %; Mean Corpuscular HGB Conc 35 g/dL (31-36); Mean Corpuscular Hemoglobin 32 pg (27-31); Mean Corpuscular Volume 91 fL (80-94); Mean Platelet Volume 7.7 fL (7.4-10.4); Platelet Count 178 10^3/uL (150-450); Red Cell Distribution Width 16 % (10-15)
[2020-05-29] MEDS: Aspirin EC 81 mg TAB.EC (enteric coated) PO SCH (09:25)
[2020-05-29] MEDS: Multivitamins/Minerals TAB PO SCH (09:25)
[2020-05-29] MEDS: Nicotine PATCH 21 MG/24 HR PATCH TRANSDERM SCH (09:27)
[2020-05-30 05:32] LABS: BUN/Creatinine Ratio 15.8 (8-20); Calcium 9.5 mg/dL (8.6-10.3); EGFR African American 97.9 (>60); EGFR Non-African American 80.9 (>60); Magnesium 1.5 mg/dL (1.9-2.7); Potassium 3.9 mmol/L (3.5-5.0)
[2020-05-30] MEDS: Heparin 5000 UNITS/ML 1 mL VIAL SUBCUT SCH ×3 (06:11→21:57)
[2020-05-30] MEDS ORDERED: Magnesium Sulfate 2 gm BAG 2 GM/50 ML BAG IVPB ONE (07:26)
[2020-05-30] MEDS: Nicotine PATCH 21 MG/24 HR PATCH TRANSDERM SCH (08:30)
[2020-05-30] MEDS: Multivitamins/Minerals TAB PO SCH (08:34)
[2020-05-30] MEDS: Aspirin EC 81 mg TAB.EC (enteric coated) PO SCH (08:34)
[2020-05-30] MEDS ORDERED: Haloperidol 5 mg/ml SDV IV/IM 5 MG/ML AMP IV SLOW PU PRN (10:39)
[2020-05-30] MEDS ORDERED: CMCS: Doxepin 25 mg CAP (NF) PO PRN (17:17)
[2020-05-31] MEDS: Heparin 5000 UNITS/ML 1 mL VIAL SUBCUT SCH (04:34)
[2020-05-31 08:06] VITALS: BP 142/72
[2020-05-31] MEDS: Nicotine PATCH 21 MG/24 HR PATCH TRANSDERM SCH (08:32)
[2020-05-31] MEDS: Aspirin EC 81 mg TAB.EC (enteric coated) PO SCH (08:33)
[2020-05-31] MEDS: Multivitamins/Minerals TAB PO SCH (08:35)
== END 2020-05-31 10:15 | disposition home or self-care (01) | DRG 896 ==
LOC: ED 20:33 → ICU 23:26 → MED 05-28 15:29
PROVIDERS: ADMIT Nurse Practitioner Family; ATTEND Student in an Organized Health Care Education/Training Program

== ENCOUNTER 2020-09-09 10:52 | Inpatient (IN) ==
[2020-09-09] MEDS ORDERED: Thiamine 100 MG/ML 2 ml VIAL (200 mg) IM ONE ×2 (11:26→16:07)
[2020-09-09] MEDS ORDERED: NS 0.9% 1000 ml BAG 1,000 ML IV ONE ×3 (11:28→12:54)
[2020-09-09] MEDS ORDERED: LORazepam 2 mg VIAL 1 ml IV PUSH ONE ×2 (11:29→14:24)
[2020-09-09] MEDS ORDERED: Thiamine 100 MG/ML 2 ml VIAL 100 MG, Folic Acid 1 MG, Multiple Vitamin IV ADULT 10 ML i... IV ONE ×2 (11:29→12:30)
[2020-09-09] MEDS ORDERED: Lorazepam PYXIS KEY PRN ×2 (11:29→14:24)
[2020-09-09] MEDS ORDERED: Ondansetron 4 mg VIAL 2 MG/ML 2 ml VIAL IV ONE (11:36)
[2020-09-09] MEDS ORDERED: Prochlorperazine 5 mg/ml 2 ml VIAL (10 mg) IV ONE (11:41)
[2020-09-09] MEDS ORDERED: Lorazepam PYXIS KEY ONE (11:46)
[2020-09-09 11:53] LABS: ABS Basophils 0.1 10^3/ul (0-0.2); ABS Lymphocytes 0.9 10^3/ul (1.0-4.8); ABS Monocytes 0.3 10^3/ul (0-0.8); ABS Neutrophils 8.5 10^3/ul (1.5-7.7); Eosinophil % 0.3 %; Hematocrit 40 % (42-52); Hemoglobin 13.7 g/dL (14.0-18.0); Lymphocyte % 8.7 %; Mean Corpuscular HGB Conc 34 g/dL (31-36); Mean Corpuscular Hemoglobin 31 pg (27-31); Mean Corpuscular Volume 90 fL (80-94); Nucleated Red Blood Cells % 0.1; Platelet Count 162 10^3/uL (150-450); Red Blood Count 4.42 10^6 /uL (4.18-5.48); Red Cell Distribution Width 18 % (10-15); White Blood Count 9.8 10^3/uL (3.5-10.8)
[2020-09-09 12:20] LABS: ALT 196 U/L (7-52); Albumin 3.6 g/dL (3.2-5.2); Albumin/Globulin Ratio 1.2 (1-3); Alkaline Phosphatase 154 U/L (34-104); BUN/Creatinine Ratio 10.4 (8-20); Blood Urea Nitrogen 35 mg/dL (6-24); CO2 Carbon Dioxide 20 mmol/L (22-32); Calcium 6.7 mg/dL (8.6-10.3); Chloride 88 mmol/L (101-111); EGFR African American 22.9 (>60); EGFR Non-African American 18.9 (>60); Globulin 3.1 g/dL (2-4); Glucose 268 mg/dL (70-100); Sodium 129 mmol/L (135-145); Total Protein 6.7 g/dL (6.4-8.9)
[2020-09-09 12:31] LABS: Troponin I 0.09 ng/mL (<0.03)
[2020-09-09 12:35] LABS: Anion Gap 21 mmol/L (2-11); Lipase 1921 U/L (11.0-82.0)
[2020-09-09 12:45] LABS: Alcohol, S < 10 mg/dL (<10)
[2020-09-09] MEDS ORDERED: Dextrose 50% Syringe 50 ml 25 GM/50 ML SYRINGE IV PUSH PRN (14:44)
[2020-09-09 15:13] LABS: Magnesium 1.5 mg/dL (1.9-2.7)
[2020-09-09 15:19] LABS: Troponin I 0.08 ng/mL (<0.03)
[2020-09-09] MEDS ORDERED: Magnesium Sulfate 2 gm BAG 2 GM/50 ML BAG IVPB ONE (15:25)
[2020-09-09] MEDS ORDERED: Magnesium Sulfate IV 1GM/100ML 1 GM/100 ML BAG IV ONE (15:46)
[2020-09-09 15:56] LABS: AST Redraw 368 U/L (13-39); Potassium 3.2 mmol/L (3.5-5.0)
[2020-09-09 17:19] LABS: Cholesterol 209 mg/dL; HDL Cholesterol 15.1 mg/dL
[2020-09-09] MEDS ORDERED: Morphine 2 MG/ML SYRINGE IV PRN (17:20)
[2020-09-09 17:38] LABS: Triglycerides 1574 mg/dL
[2020-09-09 17:41] LABS: INR 1.23 (0.82-1.09)
[2020-09-09 17:55] LABS: LDL Cholesterol Direct 60 mg/dL
[2020-09-09 18:50] LABS: Hepatitis A Ab IgM Negative (Negative)
[2020-09-09 18:51] LABS: Hepatitis B Core IgM Nonreactive (Nonreactive)
[2020-09-09 19:03] LABS: Hepatitis C Antibody Negative (Negative)
[2020-09-09] MEDS: Ondansetron 4 mg VIAL 2 MG/ML 2 ml VIAL IV PRN (20:38)
[2020-09-09] MEDS: LORazepam 2 mg VIAL 1 ml IV PUSH SCH (21:16)
[2020-09-09] MEDS: KCL 20 MEQ/100 ML IVPREMIX 20 MEQ/100 ML BAG IV SCH (21:17)
[2020-09-09] MEDS ORDERED: Lactated Ringers 1000 ml BAG 1,000 ML IV ONE (23:43)
[2020-09-09] MEDS: Lactated Ringers 1000 ml BAG 1,000 ML IV SCH (23:57)
[2020-09-10] MEDS: LORazepam 2 mg VIAL 1 ml IV PUSH SCH (02:32)
[2020-09-10] MEDS ORDERED: LORazepam 2 mg VIAL 1 ml IV PUSH ONE (02:47)
[2020-09-10] MEDS: KCL 20 MEQ/100 ML IVPREMIX 20 MEQ/100 ML BAG IV SCH (03:06)
[2020-09-10] MEDS ORDERED: Diazepam INJ CARPUJECT 5 MG/ML IV SCH (04:00)
[2020-09-10] MEDS ORDERED: Dexmedetomidine 1,000 MCG in NS 0.9% 250 ml 240 ML IV SCH (05:00)
[2020-09-10] MEDS: Norepinephrine 16MCG/ML IVPRE 4,000 MCG/250 ML BAG IV SCH ×4 (05:30→15:49)
[2020-09-10 06:43] LABS: Hematocrit 36 % (42-52); Hemoglobin 11.9 g/dL (14.0-18.0); Mean Corpuscular HGB Conc 34 g/dL (31-36); Mean Corpuscular Hemoglobin 31 pg (27-31); Mean Corpuscular Volume 92 fL (80-94); Mean Platelet Volume 8.8 fL (7.4-10.4); Platelet Count 111 10^3/uL (150-450); Red Blood Count 3.86 10^6 /uL (4.18-5.48); Red Cell Distribution Width 18 % (10-15); White Blood Count 13.1 10^3/uL (3.5-10.8)
[2020-09-10 07:07] LABS: ABS Basophils 0.1 10^3/ul (0-0.2); ABS Lymphocytes 0.7 10^3/ul (1.0-4.8); ABS Monocytes 0.4 10^3/ul (0-0.8); ABS Neutrophils 11.8 10^3/ul (1.5-7.7); ABS Nucleated RBC 0.2 10^3/ul; Albumin 2.9 g/dL (3.2-5.2); Albumin/Globulin Ratio 1.2 (1-3); BUN/Creatinine Ratio 10.9 (8-20); EGFR African American 19.5 (>60); EGFR Non-African American 16.1 (>60); Eosinophil % 0.1 %; Globulin 2.5 g/dL (2-4); Lymphocyte % 5.5 %; Nucleated Red Blood Cells % 1.3; Polychromasia 1+; Total Bilirubin 4.1 mg/dL (0.2-1.0); Total Protein 5.4 g/dL (6.4-8.9)
[2020-09-10 07:44] LABS: Potassium 5.4 mmol/L (3.5-5.0)
[2020-09-10 07:47] LABS: Calcium 5.2 mg/dL (8.6-10.3)
[2020-09-10 07:52] LABS: Urine Appearance Cloudy; Urine Bilirubin Negative (Negative); Urine Blood 3+ (Negative); Urine Color Amber; Urine Glucose 2+(150 mg/dL) (Negative); Urine Ketones Negative (Negative); Urine Nitrite Negative (Negative); Urine Protein 2+(100 mg/dL) (Negative); Urine Specific Gravity 1.019 (1.010-1.030); Urine Urobilinogen Negative (Negative)
[2020-09-10 08:22] LABS: Urine Bacteria 1+ (Absent); Urine Granular Casts Present (Absent); Urine Red Blood Cell 3+(>10/hpf) (Absent); Urine Squamous Epithelial Cell Present (Absent); Urine Transitional Epithelial Present (Absent); Urine White Blood Cell 3+(>20/hpf) (Absent)
[2020-09-10] MEDS: Lactated Ringers 1000 ml BAG 1,000 ML IV SCH ×2 (08:23→10:25)
[2020-09-10] MEDS ORDERED: Thiamine 100 MG/ML 2 ml VIAL (200 mg) IV SCH (09:00)
[2020-09-10] MEDS ORDERED: Venlafaxine XR 75 mg PO SCH (09:00)
[2020-09-10] MEDS ORDERED: Folic Acid 1 mg SYRINGE 0.2 ML SYRINGE IV SCH (09:00)
[2020-09-10] MEDS ORDERED: Multivitamins/Minerals TAB PO SCH ×3 (09:00)
[2020-09-10] MEDS ORDERED: Midazolam 10 mg/10 ml VIAL 1 mg/ml 10 ml VIAL (10 mg) ONE (09:09)
[2020-09-10] MEDS ORDERED: Etomidate 40 mg/20 ml (2 MG/ML) 20 ml VIAL (40 mg) ONE (09:09)
[2020-09-10] MEDS ORDERED: Sodium Bicarbonate 8.4% VIAL 1 MEQ/ML 50 ml VIAL (50 meq) ONE (09:12)
[2020-09-10] MEDS ORDERED: Rocuronium 50 mg VIAL 10 mg/ml 5 ml VIAL (50 mg) ONE (09:16)
[2020-09-10] MEDS: Sodium Bicarbonate 8.4% SYR 50 ml SYRINGE ONE (09:40)
[2020-09-10] MEDS: Midazolam 50 MG VIAL IV DRIP 50 ML IV SCH ×3 (10:11→23:04)
[2020-09-10] MEDS: FOLIC ACID IVPB SCH (10:12)
[2020-09-10] MEDS: THIAMINE IVPB SCH (10:12)
[2020-09-10] MEDS: NS 0.9% IVPB SCH (10:12)
[2020-09-10] MEDS ORDERED: Lactated Ringers 1000 ml BAG 1,000 ML IV SCH ×2 (12:18→20:37)
[2020-09-10] MEDS ORDERED: Sodium Bicarb 8.4% Vial 50 ML 150 MEQ in D5W 1000 ml BAG 850 ML IV SCH ×2 (13:00→18:24)
[2020-09-10 13:04] LABS: BUN/Creatinine Ratio 13.1 (8-20); EGFR African American 22.2 (>60); EGFR Non-African American 18.3 (>60)
[2020-09-10 13:06] LABS: Calcium 4.9 mg/dL (8.6-10.3); Potassium 5.2 mmol/L (3.5-5.0)
[2020-09-10] MEDS ORDERED: Calcium Gluconate 3 GM in NS 0.9% 250 ml 250 ML IV ONE ×2 (13:56→22:41)
[2020-09-10] MEDS: Aspirin EC 81 mg TAB.EC (enteric coated) PO SCH (14:48)
[2020-09-10 15:51] LABS: Hepatitis B Surface Antigen Nonreactive (Nonreactive)
[2020-09-10] MEDS: cefTRIAXone 2 GM ADDV.VIAL 2 GM in NS 0.9% 100 ml BAG 100 ML IV SCH (16:59)
[2020-09-10] MEDS: DOXYcycline 100 MG in NS 0.9% 250 ml 250 ML IVPB SCH (17:01)
[2020-09-10] MEDS: fentaNYL INFUSION 50 MCG/ML 2,500 MCG/50 ML BAG IV SCH ×2 (17:13→23:03)
[2020-09-10] MEDS: Chlorhexidine MOUTHWASH 0.12% 15 ML UDC TOPICAL SCH (21:50)
[2020-09-10 22:42] LABS: BUN/Creatinine Ratio 14.3 (8-20); EGFR African American 19.1 (>60); EGFR Non-African American 15.8 (>60); Potassium 4.6 mmol/L (3.5-5.0)
[2020-09-10 22:45] LABS: Calcium 5.1 mg/dL (8.6-10.3)
[2020-09-10] MEDS ORDERED: Calcium Gluconate 4 GM in NS 0.9% 250 ml 250 ML IVPB ONE (22:53)
[2020-09-11] MEDS: Chlorhexidine MOUTHWASH 0.12% 15 ML UDC TOPICAL SCH ×6 (01:21→20:59)
[2020-09-11] MEDS: Midazolam 50 MG VIAL IV DRIP 50 ML IV SCH ×3 (03:22→16:43)
[2020-09-11] MEDS: DOXYcycline 100 MG in NS 0.9% 250 ml 250 ML IVPB SCH ×2 (05:23→16:49)
[2020-09-11 05:24] LABS: BUN/Creatinine Ratio 14.4 (8-20); EGFR African American 18.1 (>60); EGFR Non-African American 14.9 (>60); Magnesium 1.9 mg/dL (1.9-2.7)
[2020-09-11] MEDS: Norepinephrine 16MCG/ML IVPRE 4,000 MCG/250 ML BAG IV SCH ×2 (05:37→21:50)
[2020-09-11 05:44] LABS: Potassium 5.1 mmol/L (3.5-5.0)
[2020-09-11 05:46] LABS: Calcium 5.4 mg/dL (8.6-10.3)
[2020-09-11] MEDS ORDERED: Calcium Gluconate 2 GM in NS 0.9% 100 ml BAG 100 ML IV ONE (06:15)
[2020-09-11 06:47] LABS: Hematocrit 32 % (42-52); Hemoglobin 10.7 g/dL (14.0-18.0); Mean Corpuscular HGB Conc 33 g/dL (31-36); Mean Corpuscular Hemoglobin 31 pg (27-31); Mean Corpuscular Volume 93 fL (80-94); Mean Platelet Volume 9.3 fL (7.4-10.4); Platelet Count 68 10^3/uL (150-450); Red Blood Count 3.47 10^6 /uL (4.18-5.48); Red Cell Distribution Width 18 % (10-15); White Blood Count 8.4 10^3/uL (3.5-10.8)
[2020-09-11 06:51] LABS: Polychromasia 1+
[2020-09-11 06:52] LABS: ABS Lymphocytes 0.8 10^3/ul (1.0-4.8); ABS Monocytes 0.3 10^3/ul (0-0.8); ABS Neutrophils 7.3 10^3/ul (1.5-7.7); ABS Nucleated RBC 0.1 10^3/ul; Eosinophil % 0.5 %; Lymphocyte % 9.4 %; Nucleated Red Blood Cells % 1.2
[2020-09-11] MEDS: Aspirin EC 81 mg TAB.EC (enteric coated) PO SCH (10:05)
[2020-09-11 11:46] LABS: Lipase 241 U/L (11.0-82.0)
[2020-09-11] MEDS: Albumin Human 25% 75 GM/300 ML BTL IV SCH ×3 (12:18→15:22)
[2020-09-11] MEDS: THIAMINE IVPB SCH (12:24)
[2020-09-11] MEDS: FOLIC ACID IVPB SCH (12:24)
[2020-09-11] MEDS: NS 0.9% IVPB SCH (12:24)
[2020-09-11 12:33] LABS: Glucose 233 mg/dL (70-100)
[2020-09-11 13:13] LABS: Urine Chloride Concentration < 22 mmol/L; Urine Potassium Concentration 62.8 mmol/L; Urine Sodium Concentration 21 mmol/L
[2020-09-11] MEDS: cefTRIAXone 2 GM ADDV.VIAL 2 GM in NS 0.9% 100 ml BAG 100 ML IV SCH (16:51)
[2020-09-11] MEDS: Famotidine IV 10 MG/ML 2 ml VIAL (20 mg) IV SLOW PU SCH (20:59)
[2020-09-11] MEDS ORDERED: Lactated Ringers 1000 ml BAG 1,000 ML IV SCH (21:16)
[2020-09-11 21:50] LABS: BUN/Creatinine Ratio 13.4 (8-20); EGFR African American 13.9 (>60); EGFR Non-African American 11.5 (>60); Potassium 4.8 mmol/L (3.5-5.0)
[2020-09-11 21:53] LABS: Calcium 5.2 mg/dL (8.6-10.3)
[2020-09-11] MEDS ORDERED: Calcium Gluconate 3 GM in NS 0.9% 250 ml 250 ML IV ONE (22:15)
[2020-09-12] MEDS: Chlorhexidine MOUTHWASH 0.12% 15 ML UDC TOPICAL SCH ×7 (00:56→23:53)
[2020-09-12] MEDS: DOXYcycline 100 MG in NS 0.9% 250 ml 250 ML IVPB SCH ×2 (03:08→17:24)
[2020-09-12] MEDS: Midazolam 50 MG VIAL IV DRIP 50 ML IV SCH ×2 (03:16→14:32)
[2020-09-12 05:01] LABS: EGFR Non-African American 10.8 (>60); Magnesium 1.8 mg/dL (1.9-2.7); Phosphorus 8.1 mg/dL (2.5-5.0)
[2020-09-12 05:12] LABS: Calcium 5.7 mg/dL (8.6-10.3)
[2020-09-12 05:15] LABS: Hematocrit 29 % (42-52); Hemoglobin 9.4 g/dL (14.0-18.0); Mean Corpuscular HGB Conc 32 g/dL (31-36); Mean Corpuscular Hemoglobin 31 pg (27-31); Mean Corpuscular Volume 95 fL (80-94); Mean Platelet Volume 8.4 fL (7.4-10.4); Platelet Count 53 10^3/uL (150-450); Red Blood Count 3.05 10^6 /uL (4.18-5.48); Red Cell Distribution Width 18 % (10-15)
[2020-09-12] MEDS: fentaNYL INFUSION 50 MCG/ML 2,500 MCG/50 ML BAG IV SCH (05:58)
[2020-09-12] MEDS ORDERED: Calcium Gluconate 3 GM in NS 0.9% 250 ml 250 ML IV ONE ×2 (06:15→21:04)
[2020-09-12] MEDS ORDERED: Sodium Bicarbonate 8.4% SYR 50 ml SYRINGE IV ONE ×2 (08:23→10:00)
[2020-09-12] MEDS ORDERED: Calcium Gluconate 2 GM in NS 0.9% 100 ml BAG 100 ML IV ONE (08:24)
[2020-09-12] MEDS ORDERED: Magnesium Sulfate 2 gm BAG 2 GM/50 ML BAG IVPB ONE (08:29)
[2020-09-12] MEDS ORDERED: Sodium Bicarb 8.4% Vial 50 ML 150 MEQ in D5W 1000 ml BAG 850 ML IV SCH (09:00)
[2020-09-12] MEDS ORDERED: Sodium Bicarbonate 8.4% VIAL 1 MEQ/ML 50 ml VIAL (50 meq) ONE (09:48)
[2020-09-12] MEDS: Albumin Human 25% 75 GM/300 ML BTL IV SCH ×3 (10:07→12:45)
[2020-09-12] MEDS: Famotidine IV 10 MG/ML 2 ml VIAL (20 mg) IV SLOW PU SCH ×2 (10:13→21:47)
[2020-09-12] MEDS: Sodium Bicarbonate 8.4% SYR 50 ml SYRINGE ONE (10:16)
[2020-09-12] MEDS: Aspirin EC 81 mg TAB.EC (enteric coated) PO SCH (10:20)
[2020-09-12] MEDS: Sodium Bicarb 8.4% Vial 50 ML 150 MEQ in D5W 1000 ml BAG 850 ML IV SCH ×2 (11:15→21:40)
[2020-09-12] MEDS: FOLIC ACID IVPB SCH (11:20)
[2020-09-12] MEDS: NS 0.9% IVPB SCH (11:20)
[2020-09-12] MEDS: THIAMINE IVPB SCH (11:20)
[2020-09-12] MEDS: Norepinephrine 16MCG/ML IVPRE 4,000 MCG/250 ML BAG IV SCH (11:43)
[2020-09-12] MEDS: Heparin 1,000 UNIT/ML 10 ml (10,000 UNITS) CATHLAB/DIALYSIS DIALYSIS ONE ×4 (11:55→15:31)
[2020-09-12 13:39] LABS: Hepatitis B Surface Ab Not Immune (Immune)
[2020-09-12] MEDS: cefTRIAXone 2 GM ADDV.VIAL 2 GM in NS 0.9% 100 ml BAG 100 ML IV SCH (17:21)
[2020-09-12] MEDS ORDERED: Norepinephrine 16MCG/ML IVPRE 4,000 MCG/250 ML BAG IV SCH (17:36)
[2020-09-12 18:56] LABS: Hepatitis B Surface Antigen Nonreactive (Nonreactive)
[2020-09-12] MEDS: Artificial Tear OPHTH.OINT 3.5 GM BOTH EYES SCH ×2 (19:27→23:53)
[2020-09-12 21:02] LABS: BUN/Creatinine Ratio 12.7 (8-20); EGFR African American 21.4 (>60); EGFR Non-African American 17.7 (>60); Magnesium 1.6 mg/dL (1.9-2.7); Phosphorus 4.3 mg/dL (2.5-5.0); Potassium 3.1 mmol/L (3.5-5.0)
[2020-09-12] MEDS ORDERED: fentaNYL INFUSION 50 MCG/ML 2,500 MCG/50 ML BAG IV SCH (23:45)
[2020-09-13] MEDS: Chlorhexidine MOUTHWASH 0.12% 15 ML UDC TOPICAL SCH ×6 (03:45→23:57)
[2020-09-13] MEDS: Artificial Tear OPHTH.OINT 3.5 GM BOTH EYES SCH ×6 (03:45→23:58)
[2020-09-13] MEDS: DOXYcycline 100 MG in NS 0.9% 250 ml 250 ML IVPB SCH (03:45)
[2020-09-13 04:37] LABS: Hematocrit 24 % (42-52); Hemoglobin 7.9 g/dL (14.0-18.0); Mean Corpuscular HGB Conc 33 g/dL (31-36); Mean Corpuscular Hemoglobin 30 pg (27-31); Mean Corpuscular Volume 92 fL (80-94); Mean Platelet Volume 8.6 fL (7.4-10.4); Platelet Count 48 10^3/uL (150-450); Red Cell Distribution Width 18 % (10-15); White Blood Count 4.6 10^3/uL (3.5-10.8)
[2020-09-13 04:49] LABS: Calcium 6.5 mg/dL (8.6-10.3); EGFR African American 15.3 (>60); EGFR Non-African American 12.6 (>60); Magnesium 1.9 mg/dL (1.9-2.7); Phosphorus 4.9 mg/dL (2.5-5.0); Potassium 3.7 mmol/L (3.5-5.0)
[2020-09-13] MEDS ORDERED: Calcium Gluconate 2 GM in NS 0.9% 100 ml BAG 100 ML IV ONE (06:50)
[2020-09-13] MEDS ORDERED: Calcium Gluconate 4 GM in NS 0.9% 250 ml 250 ML IVPB ONE (07:58)
[2020-09-13] MEDS: Sodium Bicarb 8.4% Vial 50 ML 150 MEQ in D5W 1000 ml BAG 850 ML IV SCH (08:00)
[2020-09-13] MEDS ORDERED: Vancomycin 1,500 MG in NS 0.9% 250 ml 250 ML IVPB ONE (09:30)
[2020-09-13] MEDS: THIAMINE IVPB SCH (11:58)
[2020-09-13] MEDS: FOLIC ACID IVPB SCH (11:58)
[2020-09-13] MEDS: NS 0.9% IVPB SCH (11:58)
[2020-09-13] MEDS: Meropenem 500MG PREMIX(*) 500 MG/50 ML BAG IV SCH ×2 (11:58→21:48)
[2020-09-13] MEDS: Aspirin EC 81 mg TAB.EC (enteric coated) PO SCH (12:10)
[2020-09-13] MEDS: Heparin 1,000 UNIT/ML 10 ml (10,000 UNITS) CATHLAB/DIALYSIS DIALYSIS ONE ×3 (14:39→17:43)
[2020-09-13] MEDS ORDERED: Vancomycin per Pharmacy 1 EA NOTE FOLLOW UP SCH (16:00)
[2020-09-13] MEDS ORDERED: Norepinephrine 16MCG/ML IVPRE 4,000 MCG/250 ML BAG IV SCH (16:37)
[2020-09-13] MEDS ORDERED: Vancomycin 1000 MG in NS 0.9% 250 ML IVPB ONE (21:00)
[2020-09-13] MEDS: Famotidine IV 10 MG/ML 2 ml VIAL (20 mg) IV SLOW PU SCH (21:47)
[2020-09-14] MEDS: Artificial Tear OPHTH.OINT 3.5 GM BOTH EYES SCH ×5 (04:10→20:06)
[2020-09-14] MEDS: Chlorhexidine MOUTHWASH 0.12% 15 ML UDC TOPICAL SCH ×5 (04:13→20:07)
[2020-09-14 04:40] LABS: Hematocrit 27 % (42-52); Hemoglobin 9.2 g/dL (14.0-18.0); Mean Corpuscular HGB Conc 34 g/dL (31-36); Mean Corpuscular Hemoglobin 30 pg (27-31); Mean Corpuscular Volume 90 fL (80-94); Mean Platelet Volume 9.6 fL (7.4-10.4); Platelet Count 83 10^3/uL (150-450); Red Blood Count 3.03 10^6 /uL (4.18-5.48); Red Cell Distribution Width 18 % (10-15); White Blood Count 4.1 10^3/uL (3.5-10.8)
[2020-09-14 04:56] LABS: BUN/Creatinine Ratio 12.4 (8-20); Calcium 6.8 mg/dL (8.6-10.3); EGFR African American 17.6 (>60); EGFR Non-African American 14.5 (>60); Magnesium 1.9 mg/dL (1.9-2.7); Phosphorus 3.2 mg/dL (2.5-5.0); Potassium 3.6 mmol/L (3.5-5.0)
[2020-09-14 05:42] LABS: Albumin 2.9 g/dL (3.2-5.2); Albumin/Globulin Ratio 1.1 (1-3); Globulin 2.7 g/dL (2-4); Indirect Bilirubin 2.3 mg/dL (0.3-1.0); Total Bilirubin 8.5 mg/dL (0.2-1.0); Total Protein 5.6 g/dL (6.4-8.9)
[2020-09-14] MEDS: Meropenem 500MG PREMIX(*) 500 MG/50 ML BAG IV SCH ×2 (08:45→21:34)
[2020-09-14] MEDS: Multivitamins ADULT w/MIN LIQ 15 ML UDC PO SCH (08:45)
[2020-09-14 15:00] LABS: Urine Appearance Turbid; Urine Bilirubin 1+ (Negative); Urine Blood 3+ (Negative); Urine Color Amber; Urine Glucose 1+(50 mg/dL) (Negative); Urine Ketones Trace (Negative); Urine Nitrite Negative (Negative); Urine Protein 2+(100 mg/dL) (Negative); Urine Specific Gravity 1.018 (1.010-1.030); Urine Urobilinogen Positive (Negative)
[2020-09-14 15:10] LABS: Urine Bacteria Absent (Absent); Urine Red Blood Cell 3+(>10/hpf) (Absent); Urine White Blood Cell 3+(>20/hpf) (Absent)
[2020-09-14] MEDS ORDERED: Etomidate 40 mg/20 ml (2 MG/ML) 20 ml VIAL (40 mg) ONE (15:31)
[2020-09-14] MEDS ORDERED: Etomidate 20 mg/10 ml 2 MG/ML 10 ml VIAL IV ONE (16:01)
[2020-09-14] MEDS ORDERED: Vancomycin - DIALYSIS DOSING 1 EA NOTE FOLLOW UP SCH (17:00)
[2020-09-14] MEDS: Famotidine IV 10 MG/ML 2 ml VIAL (20 mg) IV SLOW PU SCH (21:34)
[2020-09-15] MEDS: Chlorhexidine MOUTHWASH 0.12% 15 ML UDC TOPICAL SCH ×6 (02:24→21:45)
[2020-09-15] MEDS: Artificial Tear OPHTH.OINT 3.5 GM BOTH EYES SCH ×6 (02:25→21:45)
[2020-09-15 05:55] LABS: Hematocrit 28 % (42-52); Hemoglobin 9.3 g/dL (14.0-18.0); Mean Corpuscular HGB Conc 33 g/dL (31-36); Mean Corpuscular Hemoglobin 31 pg (27-31); Mean Corpuscular Volume 91 fL (80-94); Mean Platelet Volume 9.1 fL (7.4-10.4); Platelet Count 138 10^3/uL (150-450); Red Blood Count 3.06 10^6 /uL (4.18-5.48); Red Cell Distribution Width 18 % (10-15); White Blood Count 10.2 10^3/uL (3.5-10.8)
[2020-09-15] MEDS ORDERED: Vancomycin Random Level NOTE FOLLOW UP ONE (06:00)
[2020-09-15 06:04] LABS: Vancomycin Random 14.1 mcg/mL
[2020-09-15 06:06] LABS: Calcium 6.5 mg/dL (8.6-10.3); EGFR African American 13.3 (>60); Magnesium 2.1 mg/dL (1.9-2.7); Phosphorus 2.6 mg/dL (2.5-5.0); Potassium 3.6 mmol/L (3.5-5.0)
[2020-09-15] MEDS: Saline FLUSH-CENTRAL 10 ML SYRINGE CENT\\PICC SCH ×2 (09:48→21:46)
[2020-09-15] MEDS: Meropenem 500MG PREMIX(*) 500 MG/50 ML BAG IV SCH ×2 (09:49→21:45)
[2020-09-15] MEDS: Multivitamins ADULT w/MIN LIQ 15 ML UDC PO SCH (09:49)
[2020-09-15] MEDS ORDERED: Vancomycin 1000 MG in NS 0.9% 250 ML IVPB ONE (17:00)
[2020-09-15] MEDS ORDERED: Insulin GLARGINE 100 un/ml 10 ml VIAL SUBCUT SCH (21:00)
[2020-09-15] MEDS: Famotidine IV 10 MG/ML 2 ml VIAL (20 mg) IV SLOW PU SCH (21:45)
[2020-09-16] MEDS: Chlorhexidine MOUTHWASH 0.12% 15 ML UDC TOPICAL SCH ×6 (00:56→21:11)
[2020-09-16] MEDS: Artificial Tear OPHTH.OINT 3.5 GM BOTH EYES SCH ×6 (00:56→21:11)
[2020-09-16 05:31] LABS: Hematocrit 30 % (42-52); Hemoglobin 9.8 g/dL (14.0-18.0); Mean Corpuscular HGB Conc 33 g/dL (31-36); Mean Corpuscular Hemoglobin 30 pg (27-31); Mean Corpuscular Volume 91 fL (80-94); Mean Platelet Volume 8.9 fL (7.4-10.4); Platelet Count 218 10^3/uL (150-450); Red Blood Count 3.27 10^6 /uL (4.18-5.48); Red Cell Distribution Width 18 % (10-15); White Blood Count 15.4 10^3/uL (3.5-10.8)
[2020-09-16 05:54] LABS: Albumin 2.8 g/dL (3.2-5.2); Albumin/Globulin Ratio 0.9 (1-3); BUN/Creatinine Ratio 18.3 (8-20); Calcium 6.8 mg/dL (8.6-10.3); EGFR African American 13.6 (>60); EGFR Non-African American 11.3 (>60); Globulin 3.2 g/dL (2-4); Magnesium 2.1 mg/dL (1.9-2.7); Phosphorus 3.4 mg/dL (2.5-5.0); Potassium 3.7 mmol/L (3.5-5.0); Total Bilirubin 9.2 mg/dL (0.2-1.0)
[2020-09-16 07:03] LABS: Polychromasia 2+
[2020-09-16 07:04] LABS: ABS Eosinophils 0.1 10^3/ul (0-0.6); ABS Lymphocytes 1.9 10^3/ul (1.0-4.8); ABS Monocytes 0.9 10^3/ul (0-0.8); ABS Neutrophils 12.6 10^3/ul (1.5-7.7); Eosinophil % 0.3 %; Lymphocyte % 12.1 %; Nucleated Red Blood Cells % 0.1
[2020-09-16] MEDS ORDERED: Insulin GLARGINE 100 un/ml 10 ml VIAL SUBCUT ONE (07:04)
[2020-09-16] MEDS: Saline FLUSH-CENTRAL 10 ML SYRINGE CENT\\PICC SCH ×2 (08:29→21:12)
[2020-09-16] MEDS: Multivitamins ADULT w/MIN LIQ 15 ML UDC PO SCH ×2 (08:30)
[2020-09-16] MEDS: Meropenem 500MG PREMIX(*) 500 MG/50 ML BAG IV SCH ×2 (08:52→21:08)
[2020-09-16] MEDS: Heparin 1,000 UNIT/ML 10 ml (10,000 UNITS) CATHLAB/DIALYSIS DIALYSIS ONE ×3 (13:30→15:28)
[2020-09-16] MEDS ORDERED: Vancomycin 1,000 MG in NS 0.9% 250 ml 250 ML IVPB ONE (20:00)
[2020-09-16] MEDS ORDERED: Vancomycin 1000 MG in NS 0.9% 250 ML IVPB ONE (20:00)
[2020-09-16] MEDS ORDERED: Polyethylene Glycol 3350 17 GM PACKET PO PRN (20:16)
[2020-09-16] MEDS: Famotidine IV 10 MG/ML 2 ml VIAL (20 mg) IV SLOW PU SCH (21:10)
[2020-09-16] MEDS: Heparin 5000 UNITS/ML 1 mL VIAL SUBCUT SCH (21:10)
[2020-09-16] MEDS: Insulin GLARGINE 100 un/ml 10 ml VIAL SUBCUT SCH (21:11)
[2020-09-17] MEDS: Artificial Tear OPHTH.OINT 3.5 GM BOTH EYES SCH ×6 (01:27→20:17)
[2020-09-17] MEDS: Chlorhexidine MOUTHWASH 0.12% 15 ML UDC TOPICAL SCH ×6 (01:27→20:16)
[2020-09-17 05:01] LABS: Hematocrit 27 % (42-52); Hemoglobin 8.9 g/dL (14.0-18.0); Mean Corpuscular HGB Conc 33 g/dL (31-36); Mean Corpuscular Hemoglobin 30 pg (27-31); Mean Corpuscular Volume 90 fL (80-94); Mean Platelet Volume 9.2 fL (7.4-10.4); Platelet Count 301 10^3/uL (150-450); Red Blood Count 3.02 10^6 /uL (4.18-5.48); Red Cell Distribution Width 18 % (10-15); White Blood Count 16.2 10^3/uL (3.5-10.8)
[2020-09-17 05:09] LABS: INR 1.36 (0.82-1.09)
[2020-09-17 05:16] LABS: Magnesium 1.9 mg/dL (1.9-2.7); Phosphorus 3.1 mg/dL (2.5-5.0)
[2020-09-17] MEDS ORDERED: Vancomycin Random Level NOTE FOLLOW UP ONE (06:00)
[2020-09-17 06:36] LABS: Polychromasia 1+
[2020-09-17 06:37] LABS: ABS Basophils 0.1 10^3/ul (0-0.2); ABS Eosinophils 0.2 10^3/ul (0-0.6); ABS Lymphocytes 0.6 10^3/ul (1.0-4.8); ABS Monocytes 2.2 10^3/ul (0-0.8); ABS Neutrophils 13.3 10^3/ul (1.5-7.7); Lymphocyte % 3.5 %; Nucleated Red Blood Cells % 0.1
[2020-09-17 07:55] LABS: BUN/Creatinine Ratio 20.7 (8-20); Calcium 7.2 mg/dL (8.6-10.3); EGFR African American 20.6 (>60); Potassium 3.6 mmol/L (3.5-5.0)
[2020-09-17 08:56] LABS: Albumin 2.6 g/dL (3.2-5.2); Albumin/Globulin Ratio 0.9 (1-3); Indirect Bilirubin 2.3 mg/dL (0.3-1.0); Total Bilirubin 7.1 mg/dL (0.2-1.0); Total Protein 5.6 g/dL (6.4-8.9)
[2020-09-17] MEDS: Meropenem 500MG PREMIX(*) 500 MG/50 ML BAG IV SCH ×2 (09:01→20:17)
[2020-09-17] MEDS: Saline FLUSH-CENTRAL 10 ML SYRINGE CENT\\PICC SCH ×2 (09:01→20:17)
[2020-09-17] MEDS: Heparin 5000 UNITS/ML 1 mL VIAL SUBCUT SCH ×2 (09:01→20:16)
[2020-09-17] MEDS: Multivitamins ADULT w/MIN LIQ 15 ML UDC PO SCH (09:01)
[2020-09-17] MEDS ORDERED: Potassium Chloride LIQUID 20 MEQ/15 ML LIQUID PO ONE (09:45)
[2020-09-17] MEDS ORDERED: Magnesium Sulfate IV 1GM/100ML 1 GM/100 ML BAG IV ONE (09:45)
[2020-09-17] MEDS ORDERED: Metoprolol Tartrate 5 mg VIAL 5 ml VIAL (1 mg/ml) IV PRN (09:47)
[2020-09-17] MEDS ORDERED: Metoprolol Tartrate 5 mg VIAL 5 ml VIAL (1 mg/ml) ONE (10:06)
[2020-09-17] MEDS: Metoprolol Tartrate 5 mg VIAL 5 ml VIAL (1 mg/ml) IV SCH ×2 (17:32→20:16)
[2020-09-17 17:49] LABS: Calcium 7.6 mg/dL (8.6-10.3); EGFR African American 20.3 (>60); EGFR Non-African American 16.8 (>60); Magnesium 2.2 mg/dL (1.9-2.7); Potassium 4.1 mmol/L (3.5-5.0)
[2020-09-17] MEDS: Insulin GLARGINE 100 un/ml 10 ml VIAL SUBCUT SCH (20:16)
[2020-09-18] MEDS: Chlorhexidine MOUTHWASH 0.12% 15 ML UDC TOPICAL SCH ×7 (00:05→23:50)
[2020-09-18] MEDS: Artificial Tear OPHTH.OINT 3.5 GM BOTH EYES SCH ×7 (00:06→23:49)
[2020-09-18] MEDS: Metoprolol Tartrate 5 mg VIAL 5 ml VIAL (1 mg/ml) IV SCH ×4 (04:35→20:28)
[2020-09-18 04:42] LABS: Hematocrit 26 % (42-52); Hemoglobin 8.5 g/dL (14.0-18.0); Mean Corpuscular HGB Conc 33 g/dL (31-36); Mean Corpuscular Hemoglobin 29 pg (27-31); Mean Corpuscular Volume 91 fL (80-94); Mean Platelet Volume 8.9 fL (7.4-10.4); Platelet Count 403 10^3/uL (150-450); Red Blood Count 2.87 10^6 /uL (4.18-5.48); Red Cell Distribution Width 18 % (10-15)
[2020-09-18 04:50] LABS: Magnesium 2.1 mg/dL (1.9-2.7); Phosphorus 3.4 mg/dL (2.5-5.0)
[2020-09-18] MEDS ORDERED: fentaNYL 100 mcg/2 ml 50 MCG/ML VIAL IV SLOW PU ONE (05:05)
[2020-09-18 05:15] LABS: Vancomycin Random 13.2 mcg/mL
[2020-09-18 05:43] LABS: Calcium 7.3 mg/dL (8.6-10.3); Potassium 3.8 mmol/L (3.5-5.0)
[2020-09-18 05:48] LABS: BUN/Creatinine Ratio 25.9 (8-20); EGFR African American 21.1 (>60); EGFR Non-African American 17.4 (>60)
[2020-09-18] MEDS ORDERED: Vancomycin Random Level NOTE FOLLOW UP ONE (06:00)
[2020-09-18 06:10] LABS: ABS Basophils 0.1 10^3/ul (0-0.2); ABS Eosinophils 0.1 10^3/ul (0-0.6); ABS Lymphocytes 2.2 10^3/ul (1.0-4.8); ABS Neutrophils 17.4 10^3/ul (1.5-7.7); Eosinophil % 0.4 %; Lymphocyte % 10.7 %; Nucleated Red Blood Cells % 0.1
[2020-09-18] MEDS: Meropenem 500MG PREMIX(*) 500 MG/50 ML BAG IV SCH ×2 (09:57→20:25)
[2020-09-18] MEDS: Heparin 5000 UNITS/ML 1 mL VIAL SUBCUT SCH ×2 (09:57→20:21)
[2020-09-18] MEDS: Multivitamins ADULT w/MIN LIQ 15 ML UDC PO SCH (09:57)
[2020-09-18] MEDS: Pantoprazole VIAL 40 MG VIAL IV SCH (09:58)
[2020-09-18] MEDS: Saline FLUSH-CENTRAL 10 ML SYRINGE CENT\\PICC SCH ×2 (10:13→20:20)
[2020-09-18] MEDS: Dexmedetomidine 1,000 MCG in NS 0.9% 250 ml 240 ML IV SCH (16:12)
[2020-09-18] MEDS ORDERED: Vancomycin 1000 MG in NS 0.9% 250 ML IVPB ONE (18:00)
[2020-09-18] MEDS: Insulin GLARGINE 100 un/ml 10 ml VIAL SUBCUT SCH (20:24)
[2020-09-19] MEDS: Chlorhexidine MOUTHWASH 0.12% 15 ML UDC TOPICAL SCH ×5 (04:24→20:25)
[2020-09-19] MEDS: Metoprolol Tartrate 5 mg VIAL 5 ml VIAL (1 mg/ml) IV SCH ×4 (04:24→20:25)
[2020-09-19] MEDS: Artificial Tear OPHTH.OINT 3.5 GM BOTH EYES SCH ×5 (04:24→20:28)
[2020-09-19 04:27] LABS: ABS Basophils 0.2 10^3/ul (0-0.2); ABS Eosinophils 0.1 10^3/ul (0-0.6); ABS Lymphocytes 1.7 10^3/ul (1.0-4.8); ABS Monocytes 0.9 10^3/ul (0-0.8); ABS Neutrophils 13.3 10^3/ul (1.5-7.7); Eosinophil % 0.8 %; Hematocrit 23 % (42-52); Hemoglobin 7.5 g/dL (14.0-18.0); Lymphocyte % 10.4 %; Mean Corpuscular HGB Conc 32 g/dL (31-36); Mean Corpuscular Hemoglobin 30 pg (27-31); Mean Corpuscular Volume 92 fL (80-94); Mean Platelet Volume 8.8 fL (7.4-10.4); Platelet Count 450 10^3/uL (150-450); Red Blood Count 2.53 10^6 /uL (4.18-5.48); Red Cell Distribution Width 18 % (10-15); White Blood Count 16.1 10^3/uL (3.5-10.8)
[2020-09-19 04:43] LABS: Albumin 2.5 g/dL (3.2-5.2); Albumin/Globulin Ratio 0.8 (1-3); BUN/Creatinine Ratio 32.6 (8-20); Calcium 7.3 mg/dL (8.6-10.3); EGFR African American 26.2 (>60); EGFR Non-African American 21.6 (>60); Magnesium 1.9 mg/dL (1.9-2.7); Potassium 3.7 mmol/L (3.5-5.0); Total Bilirubin 3.9 mg/dL (0.2-1.0); Total Protein 5.5 g/dL (6.4-8.9)
[2020-09-19] MEDS ORDERED: fentaNYL 100 mcg/2 ml 50 MCG/ML VIAL IV SLOW PU ONE (07:10)
[2020-09-19] MEDS ORDERED: fentaNYL 100 mcg/2 ml 50 MCG/ML VIAL ONE (07:13)
[2020-09-19] MEDS ORDERED: Insulin GLARGINE 100 un/ml 10 ml VIAL SUBCUT ONE (08:13)
[2020-09-19] MEDS: Pantoprazole VIAL 40 MG VIAL IV SCH (09:12)
[2020-09-19] MEDS: Saline FLUSH-CENTRAL 10 ML SYRINGE CENT\\PICC SCH ×2 (09:13→20:30)
[2020-09-19] MEDS: Heparin 5000 UNITS/ML 1 mL VIAL SUBCUT SCH ×2 (09:13→20:25)
[2020-09-19] MEDS: Multivitamins ADULT w/MIN LIQ 15 ML UDC PO SCH (10:24)
[2020-09-19] MEDS: Meropenem 500MG PREMIX(*) 500 MG/50 ML BAG IV SCH ×2 (10:24→20:25)
[2020-09-19] MEDS: Midazolam 2 mg/2 ml VIAL 1 mg/ml 2 ml VIAL (2 mg) IV SLOW PU PRN ×2 (11:56→20:24)
[2020-09-19] MEDS: fentaNYL 100 mcg/2 ml 50 MCG/ML VIAL IV SLOW PU PRN (13:08)
[2020-09-19] MEDS: Dexmedetomidine 1,000 MCG in NS 0.9% 250 ml 240 ML IV SCH (17:06)
[2020-09-19] MEDS ORDERED: Insulin GLARGINE 100 un/ml 10 ml VIAL SUBCUT SCH (21:00)
[2020-09-20] MEDS: Artificial Tear OPHTH.OINT 3.5 GM BOTH EYES SCH ×6 (00:05→19:16)
[2020-09-20] MEDS: Chlorhexidine MOUTHWASH 0.12% 15 ML UDC TOPICAL SCH ×6 (00:05→19:16)
[2020-09-20 02:37] LABS: ABS Basophils 0.4 10^3/ul (0-0.2); ABS Eosinophils 0.2 10^3/ul (0-0.6); ABS Lymphocytes 1.6 10^3/ul (1.0-4.8); ABS Monocytes 1.1 10^3/ul (0-0.8); ABS Neutrophils 9.9 10^3/ul (1.5-7.7); Eosinophil % 1.6 %; Hematocrit 22 % (42-52); Lymphocyte % 12.2 %; Mean Corpuscular HGB Conc 32 g/dL (31-36); Mean Corpuscular Hemoglobin 30 pg (27-31); Mean Corpuscular Volume 94 fL (80-94); Mean Platelet Volume 8.6 fL (7.4-10.4); Platelet Count 503 10^3/uL (150-450); Red Blood Count 2.37 10^6 /uL (4.18-5.48); Red Cell Distribution Width 18 % (10-15); White Blood Count 13.2 10^3/uL (3.5-10.8)
[2020-09-20 02:52] LABS: Albumin 2.6 g/dL (3.2-5.2); Albumin/Globulin Ratio 0.9 (1-3); Calcium 7.7 mg/dL (8.6-10.3); EGFR African American 28.9 (>60); EGFR Non-African American 23.9 (>60); Globulin 2.9 g/dL (2-4); Magnesium 1.7 mg/dL (1.9-2.7); Potassium 3.7 mmol/L (3.5-5.0); Total Bilirubin 3.3 mg/dL (0.2-1.0); Total Protein 5.5 g/dL (6.4-8.9)
[2020-09-20] MEDS ORDERED: Magnesium Sulfate 2 gm BAG 2 GM/50 ML BAG IVPB ONE (03:00)
[2020-09-20] MEDS ORDERED: D5W 1000 ml BAG 1,000 ML IV SCH (04:00)
[2020-09-20] MEDS: Midazolam 2 mg/2 ml VIAL 1 mg/ml 2 ml VIAL (2 mg) IV SLOW PU PRN ×4 (04:21→19:16)
[2020-09-20] MEDS: Metoprolol Tartrate 5 mg VIAL 5 ml VIAL (1 mg/ml) IV SCH (04:26)
[2020-09-20] MEDS ORDERED: Vancomycin Random Level NOTE FOLLOW UP ONE (06:00)
[2020-09-20] MEDS ORDERED: Insulin GLARGINE 100 un/ml 10 ml VIAL SUBCUT ONE (07:54)
[2020-09-20] MEDS ORDERED: Vancomycin 1000 MG in NS 0.9% 250 ML IVPB ONE (08:00)
[2020-09-20] MEDS: Pantoprazole VIAL 40 MG VIAL IV SCH (08:56)
[2020-09-20] MEDS: Multivitamins ADULT w/MIN LIQ 15 ML UDC PO SCH (08:56)
[2020-09-20] MEDS: Heparin 5000 UNITS/ML 1 mL VIAL SUBCUT SCH ×2 (08:56→21:13)
[2020-09-20] MEDS: Saline FLUSH-CENTRAL 10 ML SYRINGE CENT\\PICC SCH ×2 (08:56→19:16)
[2020-09-20] MEDS: fentaNYL 100 mcg/2 ml 50 MCG/ML VIAL IV SLOW PU PRN ×4 (09:44→21:14)
[2020-09-20] MEDS ORDERED: Propofol 10 mg/ml 100 ML BTL 100 ML ONE (09:55)
[2020-09-20] MEDS ORDERED: Buffered Lidocaine 1% SYRIN 1 ml INTRADERM ONE ×2 (09:56→13:36)
[2020-09-20] MEDS: Propofol 10 mg/ml 100 ML BTL 100 ML IV SCH ×4 (10:03→22:41)
[2020-09-20] MEDS: Meropenem 500MG PREMIX(*) 500 MG/50 ML BAG IV SCH ×2 (12:12→21:13)
[2020-09-20] MEDS: oxyCODONE 5 mg/5 ml ORAL.SOLN UDC PO PRN ×2 (12:26→19:16)
[2020-09-20 16:14] LABS: Hematocrit 26 % (42-52); Hemoglobin 8.4 g/dL (14.0-18.0); Mean Corpuscular HGB Conc 33 g/dL (31-36); Mean Corpuscular Hemoglobin 30 pg (27-31); Mean Corpuscular Volume 91 fL (80-94); Mean Platelet Volume 8.8 fL (7.4-10.4); Platelet Count 537 10^3/uL (150-450); Red Blood Count 2.84 10^6 /uL (4.18-5.48); Red Cell Distribution Width 20 % (10-15); White Blood Count 16.1 10^3/uL (3.5-10.8)
[2020-09-20 16:29] LABS: Calcium 7.9 mg/dL (8.6-10.3); EGFR African American 33.9 (>60); Potassium 3.5 mmol/L (3.5-5.0)
[2020-09-20] MEDS ORDERED: Insulin GLARGINE 100 un/ml 10 ml VIAL SUBCUT SCH (21:00)
[2020-09-21] MEDS: Chlorhexidine MOUTHWASH 0.12% 15 ML UDC TOPICAL SCH ×7 (00:46→23:47)
[2020-09-21] MEDS: Artificial Tear OPHTH.OINT 3.5 GM BOTH EYES SCH ×7 (00:47→23:47)
[2020-09-21] MEDS: Midazolam 2 mg/2 ml VIAL 1 mg/ml 2 ml VIAL (2 mg) IV SLOW PU PRN ×2 (00:50→11:15)
[2020-09-21] MEDS: Propofol 10 mg/ml 100 ML BTL 100 ML IV SCH ×8 (02:03→23:22)
[2020-09-21 05:26] LABS: ABS Basophils 0.2 10^3/ul (0-0.2); ABS Eosinophils 0.2 10^3/ul (0-0.6); ABS Lymphocytes 1.9 10^3/ul (1.0-4.8); ABS Monocytes 0.8 10^3/ul (0-0.8); ABS Neutrophils 13.6 10^3/ul (1.5-7.7); Hematocrit 26 % (42-52); Hemoglobin 8.3 g/dL (14.0-18.0); Lymphocyte % 11.2 %; Mean Corpuscular HGB Conc 32 g/dL (31-36); Mean Corpuscular Hemoglobin 29 pg (27-31); Mean Corpuscular Volume 92 fL (80-94); Mean Platelet Volume 8.7 fL (7.4-10.4); Platelet Count 570 10^3/uL (150-450); Red Blood Count 2.85 10^6 /uL (4.18-5.48); Red Cell Distribution Width 19 % (10-15); White Blood Count 16.7 10^3/uL (3.5-10.8)
[2020-09-21 05:42] LABS: BUN/Creatinine Ratio 36.1 (8-20); Calcium 7.4 mg/dL (8.6-10.3); EGFR African American 40.3 (>60); EGFR Non-African American 33.3 (>60); Potassium 3.4 mmol/L (3.5-5.0)
[2020-09-21] MEDS ORDERED: Vancomycin Random Level NOTE FOLLOW UP ONE (06:00)
[2020-09-21] MEDS ORDERED: Insulin GLARGINE 100 un/ml 10 ml VIAL SUBCUT ONE (08:28)
[2020-09-21] MEDS: Multivitamins ADULT w/MIN LIQ 15 ML UDC PO SCH (08:38)
[2020-09-21] MEDS: Heparin 5000 UNITS/ML 1 mL VIAL SUBCUT SCH ×2 (08:38→20:14)
[2020-09-21] MEDS: Pantoprazole VIAL 40 MG VIAL IV SCH (08:38)
[2020-09-21] MEDS: Meropenem 500MG PREMIX(*) 500 MG/50 ML BAG IV SCH (08:38)
[2020-09-21] MEDS: Saline FLUSH-CENTRAL 10 ML SYRINGE CENT\\PICC SCH ×2 (10:00→20:16)
[2020-09-21] MEDS: Collagenase 250 units/gm OINT 1 tube TOPICAL SCH ×2 (11:15→22:00)
[2020-09-21] MEDS: fentaNYL 100 mcg/2 ml 50 MCG/ML VIAL IV SLOW PU PRN (12:34)
[2020-09-21] MEDS ORDERED: fentaNYL 100 mcg/2 ml 50 MCG/ML VIAL IV SLOW PU ONE (15:41)
[2020-09-21 16:31] LABS: Calcium 7.1 mg/dL (8.6-10.3); Potassium 3.4 mmol/L (3.5-5.0)
[2020-09-21 17:21] LABS: BUN/Creatinine Ratio 33.2 (8-20); EGFR Non-African American 36.3 (>60)
[2020-09-21] MEDS ORDERED: Insulin GLARGINE 100 un/ml 10 ml VIAL SUBCUT SCH (21:00)
[2020-09-22] MEDS ORDERED: Potassium Chloride LIQUID 20 MEQ/15 ML LIQUID PO ONE (01:01)
[2020-09-22] MEDS: Propofol 10 mg/ml 100 ML BTL 100 ML IV SCH ×6 (02:27→23:05)
[2020-09-22] MEDS: Artificial Tear OPHTH.OINT 3.5 GM BOTH EYES SCH ×6 (04:56→23:53)
[2020-09-22] MEDS: Chlorhexidine MOUTHWASH 0.12% 15 ML UDC TOPICAL SCH ×5 (04:56→19:23)
[2020-09-22 05:02] LABS: ABS Basophils 0.2 10^3/ul (0-0.2); ABS Eosinophils 0.2 10^3/ul (0-0.6); ABS Lymphocytes 2.1 10^3/ul (1.0-4.8); ABS Monocytes 0.9 10^3/ul (0-0.8); ABS Neutrophils 15.2 10^3/ul (1.5-7.7); Eosinophil % 0.9 %; Hematocrit 25 % (42-52); Lymphocyte % 11.4 %; Mean Corpuscular HGB Conc 32 g/dL (31-36); Mean Corpuscular Hemoglobin 29 pg (27-31); Mean Corpuscular Volume 91 fL (80-94); Mean Platelet Volume 8.4 fL (7.4-10.4); Nucleated Red Blood Cells % 0.1; Platelet Count 580 10^3/uL (150-450); Red Blood Count 2.74 10^6 /uL (4.18-5.48); Red Cell Distribution Width 19 % (10-15); White Blood Count 18.6 10^3/uL (3.5-10.8)
[2020-09-22 05:11] LABS: Albumin 2.5 g/dL (3.2-5.2); Calcium 7.6 mg/dL (8.6-10.3); Potassium 3.8 mmol/L (3.5-5.0); Total Bilirubin 2.8 mg/dL (0.2-1.0)
[2020-09-22 05:17] LABS: Albumin/Globulin Ratio 0.8 (1-3); EGFR African American 48.3 (>60); Total Protein 5.5 g/dL (6.4-8.9)
[2020-09-22 05:28] LABS: Vancomycin Random 7.5 mcg/mL
[2020-09-22] MEDS: Multivitamins ADULT w/MIN LIQ 15 ML UDC PO SCH (08:29)
[2020-09-22] MEDS: Saline FLUSH-CENTRAL 10 ML SYRINGE CENT\\PICC SCH ×2 (08:42→19:24)
[2020-09-22] MEDS: Collagenase 250 units/gm OINT 1 tube TOPICAL SCH ×2 (08:42→23:12)
[2020-09-22] MEDS: Heparin 5000 UNITS/ML 1 mL VIAL SUBCUT SCH ×2 (08:43→20:10)
[2020-09-22] MEDS: Pantoprazole VIAL 40 MG VIAL IV SCH (08:43)
[2020-09-22] MEDS ORDERED: Vancomycin 1000 MG in NS 0.9% 250 ML IVPB ONE (09:00)
[2020-09-22] MEDS: fentaNYL 100 mcg/2 ml 50 MCG/ML VIAL IV SLOW PU PRN ×2 (09:15→23:37)
[2020-09-22] MEDS: Midazolam 2 mg/2 ml VIAL 1 mg/ml 2 ml VIAL (2 mg) IV SLOW PU PRN ×4 (10:53→23:37)
[2020-09-22] MEDS ORDERED: Insulin GLARGINE 100 un/ml 10 ml VIAL SUBCUT SCH (21:00)
[2020-09-23] MEDS: Chlorhexidine MOUTHWASH 0.12% 15 ML UDC TOPICAL SCH ×6 (00:07→19:16)
[2020-09-23] MEDS: Propofol 10 mg/ml 100 ML BTL 100 ML IV SCH ×7 (01:54→21:45)
[2020-09-23 02:37] LABS: Urine Appearance Cloudy; Urine Bilirubin Negative (Negative); Urine Blood Negative (Negative); Urine Color Amber; Urine Glucose 2+(150 mg/dL) (Negative); Urine Ketones Negative (Negative); Urine Nitrite Negative (Negative); Urine Protein 1+(30 mg/dL) (Negative); Urine Specific Gravity 1.016 (1.010-1.030); Urine Urobilinogen Negative (Negative)
[2020-09-23] MEDS: fentaNYL 100 mcg/2 ml 50 MCG/ML VIAL IV SLOW PU PRN ×2 (02:38→22:37)
[2020-09-23 02:45] LABS: Urine Bacteria 1+ (Absent); Urine Granular Casts Present (Absent); Urine Red Blood Cell Absent (Absent); Urine White Blood Cell Trace(0-5/hpf) (Absent)
[2020-09-23] MEDS: Artificial Tear OPHTH.OINT 3.5 GM BOTH EYES SCH ×5 (03:42→19:16)
[2020-09-23] MEDS: Midazolam 2 mg/2 ml VIAL 1 mg/ml 2 ml VIAL (2 mg) IV SLOW PU PRN (04:13)
[2020-09-23 04:50] LABS: Hematocrit 25 % (42-52); Hemoglobin 7.9 g/dL (14.0-18.0); Mean Corpuscular HGB Conc 32 g/dL (31-36); Mean Corpuscular Hemoglobin 29 pg (27-31); Mean Corpuscular Volume 91 fL (80-94); Mean Platelet Volume 8.7 fL (7.4-10.4); Platelet Count 633 10^3/uL (150-450); Red Blood Count 2.71 10^6 /uL (4.18-5.48); Red Cell Distribution Width 19 % (10-15); White Blood Count 19.8 10^3/uL (3.5-10.8)
[2020-09-23 05:03] LABS: Albumin 2.3 g/dL (3.2-5.2); Albumin/Globulin Ratio 0.7 (1-3); BUN/Creatinine Ratio 25.8 (8-20); Calcium 7.5 mg/dL (8.6-10.3); EGFR African American 46.2 (>60); EGFR Non-African American 38.2 (>60); Globulin 3.3 g/dL (2-4); Potassium 3.7 mmol/L (3.5-5.0); Total Protein 5.6 g/dL (6.4-8.9)
[2020-09-23] MEDS ORDERED: Potassium Chloride LIQUID 20 MEQ/15 ML LIQUID PO ONE (05:34)
[2020-09-23 06:02] LABS: Magnesium 1.4 mg/dL (1.9-2.7)
[2020-09-23] MEDS ORDERED: Magnesium Sulfate 2 gm BAG 2 GM/50 ML BAG IVPB ONE ×2 (06:07→18:40)
[2020-09-23] MEDS: Multivitamins ADULT w/MIN LIQ 15 ML UDC PO SCH (07:53)
[2020-09-23] MEDS: Pantoprazole VIAL 40 MG VIAL IV SCH (07:53)
[2020-09-23] MEDS: Heparin 5000 UNITS/ML 1 mL VIAL SUBCUT SCH ×2 (07:53→22:03)
[2020-09-23] MEDS: Saline FLUSH-CENTRAL 10 ML SYRINGE CENT\\PICC SCH ×3 (07:54→22:03)
[2020-09-23 08:45] LABS: ABS Basophils 0.1 10^3/ul (0-0.2); ABS Eosinophils 0.2 10^3/ul (0-0.6); ABS Lymphocytes 2.1 10^3/ul (1.0-4.8); ABS Monocytes 0.9 10^3/ul (0-0.8); ABS Neutrophils 16.5 10^3/ul (1.5-7.7); Eosinophil % 0.9 %; Lymphocyte % 10.7 %
[2020-09-23] MEDS: Collagenase 250 units/gm OINT 1 tube TOPICAL SCH ×2 (10:39→22:03)
[2020-09-23 16:54] LABS: BUN/Creatinine Ratio 25.9 (8-20); Calcium 7.9 mg/dL (8.6-10.3); EGFR African American 48.7 (>60); EGFR Non-African American 40.2 (>60); Potassium 4.2 mmol/L (3.5-5.0)
[2020-09-23 17:54] LABS: Magnesium 1.8 mg/dL (1.9-2.7)
[2020-09-23] MEDS ORDERED: Iodixanol (CONTRAST) 320 MG/ML 100 ML SDV IV ONE (20:59)
[2020-09-23] MEDS: Insulin GLARGINE 100 un/ml 10 ml VIAL SUBCUT SCH (22:06)
[2020-09-24] MEDS: Propofol 10 mg/ml 100 ML BTL 100 ML IV SCH ×3 (00:17→06:16)
[2020-09-24] MEDS: Artificial Tear OPHTH.OINT 3.5 GM BOTH EYES SCH ×7 (00:46→23:42)
[2020-09-24] MEDS: Chlorhexidine MOUTHWASH 0.12% 15 ML UDC TOPICAL SCH ×7 (00:46→23:42)
[2020-09-24] MEDS: Midazolam 2 mg/2 ml VIAL 1 mg/ml 2 ml VIAL (2 mg) IV SLOW PU PRN ×3 (00:48→18:54)
[2020-09-24] MEDS: Nystatin SUSPENSION 100,000 UNITS/ML UDC PO SCH ×5 (03:20→20:08)
[2020-09-24 04:36] LABS: ABS Basophils 0.2 10^3/ul (0-0.2); ABS Eosinophils 0.2 10^3/ul (0-0.6); ABS Monocytes 0.8 10^3/ul (0-0.8); ABS Neutrophils 12.9 10^3/ul (1.5-7.7); Eosinophil % 1.4 %; Hematocrit 22 % (42-52); Hemoglobin 7.2 g/dL (14.0-18.0); Lymphocyte % 12.3 %; Mean Corpuscular HGB Conc 32 g/dL (31-36); Mean Corpuscular Hemoglobin 29 pg (27-31); Mean Corpuscular Volume 91 fL (80-94); Mean Platelet Volume 8.6 fL (7.4-10.4); Platelet Count 581 10^3/uL (150-450); Red Blood Count 2.45 10^6 /uL (4.18-5.48); Red Cell Distribution Width 19 % (10-15)
[2020-09-24 04:52] LABS: Albumin 2.2 g/dL (3.2-5.2); Albumin/Globulin Ratio 0.7 (1-3); BUN/Creatinine Ratio 28.9 (8-20); Calcium 7.3 mg/dL (8.6-10.3); EGFR African American 61.5 (>60); EGFR Non-African American 50.9 (>60); Globulin 3.2 g/dL (2-4); Phosphorus 3.9 mg/dL (2.5-5.0); Potassium 3.5 mmol/L (3.5-5.0); Total Bilirubin 2.2 mg/dL (0.2-1.0); Total Protein 5.4 g/dL (6.4-8.9)
[2020-09-24] MEDS: Multivitamins ADULT w/MIN LIQ 15 ML UDC PO SCH (08:33)
[2020-09-24] MEDS: Pantoprazole VIAL 40 MG VIAL IV SCH (08:34)
[2020-09-24] MEDS: Heparin 5000 UNITS/ML 1 mL VIAL SUBCUT SCH ×2 (08:34→20:07)
[2020-09-24] MEDS: Saline FLUSH-CENTRAL 10 ML SYRINGE CENT\\PICC SCH ×2 (08:35→18:13)
[2020-09-24] MEDS: Collagenase 250 units/gm OINT 1 tube TOPICAL SCH ×2 (11:00→20:24)
[2020-09-24] MEDS: fentaNYL 100 mcg/2 ml 50 MCG/ML VIAL IV SLOW PU PRN ×2 (17:35→20:23)
[2020-09-24] MEDS: Insulin GLARGINE 100 un/ml 10 ml VIAL SUBCUT SCH (22:07)
[2020-09-25] MEDS: fentaNYL 100 mcg/2 ml 50 MCG/ML VIAL IV SLOW PU PRN ×4 (01:41→07:30)
[2020-09-25] MEDS: Midazolam 2 mg/2 ml VIAL 1 mg/ml 2 ml VIAL (2 mg) IV SLOW PU PRN ×3 (02:58→18:42)
[2020-09-25] MEDS: Artificial Tear OPHTH.OINT 3.5 GM BOTH EYES SCH ×6 (04:16→23:47)
[2020-09-25 04:21] LABS: Hematocrit 22 % (42-52); Hemoglobin 6.9 g/dL (14.0-18.0); Mean Corpuscular HGB Conc 32 g/dL (31-36); Mean Corpuscular Hemoglobin 29 pg (27-31); Mean Corpuscular Volume 91 fL (80-94); Platelet Count 653 10^3/uL (150-450); Red Blood Count 2.37 10^6 /uL (4.18-5.48); Red Cell Distribution Width 18 % (10-15); White Blood Count 14.3 10^3/uL (3.5-10.8)
[2020-09-25] MEDS: Chlorhexidine MOUTHWASH 0.12% 15 ML UDC TOPICAL SCH ×6 (04:24→23:47)
[2020-09-25 04:36] LABS: ABS Basophils 0.1 10^3/ul (0-0.2); ABS Eosinophils 0.2 10^3/ul (0-0.6); ABS Lymphocytes 1.7 10^3/ul (1.0-4.8); ABS Monocytes 0.8 10^3/ul (0-0.8); ABS Neutrophils 11.5 10^3/ul (1.5-7.7); Eosinophil % 1.5 %; Lymphocyte % 11.7 %
[2020-09-25 04:40] LABS: Albumin 2.4 g/dL (3.2-5.2); Albumin/Globulin Ratio 0.8 (1-3); BUN/Creatinine Ratio 27.1 (8-20); Calcium 8.1 mg/dL (8.6-10.3); EGFR African American 66.4 (>60); EGFR Non-African American 54.8 (>60); Globulin 3.2 g/dL (2-4); Magnesium 1.8 mg/dL (1.9-2.7); Potassium 3.7 mmol/L (3.5-5.0); Total Bilirubin 2.2 mg/dL (0.2-1.0); Total Protein 5.6 g/dL (6.4-8.9)
[2020-09-25] MEDS ORDERED: Midazolam 2 mg/2 ml VIAL 1 mg/ml 2 ml VIAL (2 mg) IV SLOW PU ONE (05:40)
[2020-09-25] MEDS ORDERED: Magnesium Sulfate IV 1GM/100ML 1 GM/100 ML BAG IV ONE (05:55)
[2020-09-25] MEDS: Saline FLUSH-CENTRAL 10 ML SYRINGE CENT\\PICC SCH ×2 (07:24→19:57)
[2020-09-25] MEDS: fentaNYL INFUSION 50 MCG/ML 2,500 MCG/50 ML BAG IV SCH (09:10)
[2020-09-25] MEDS: Multivitamins ADULT w/MIN LIQ 15 ML UDC PO SCH (09:41)
[2020-09-25] MEDS: Nystatin SUSPENSION 100,000 UNITS/ML UDC PO SCH ×4 (09:41→20:03)
[2020-09-25] MEDS: Heparin 5000 UNITS/ML 1 mL VIAL SUBCUT SCH ×2 (09:41→20:03)
[2020-09-25] MEDS: Pantoprazole VIAL 40 MG VIAL IV SCH (09:42)
[2020-09-25] MEDS: Collagenase 250 units/gm OINT 1 tube TOPICAL SCH ×2 (12:18→20:03)
[2020-09-25 12:19] LABS: C Reactive Protein 168.84 mg/L (<8.01)
[2020-09-25] MEDS ORDERED: Furosemide 20 mg/2 ml IV VIAL IV SLOW PU ONE ×2 (13:52→18:44)
[2020-09-25 15:12] LABS: Activated Partial Thrombo Time 34.7 seconds (26.0-38.0); INR 1.22 (0.82-1.09)
[2020-09-25 16:35] LABS: Hematocrit 25 % (42-52)
[2020-09-25] MEDS: Insulin GLARGINE 100 un/ml 10 ml VIAL SUBCUT SCH (20:03)
[2020-09-26] MEDS: Artificial Tear OPHTH.OINT 3.5 GM BOTH EYES SCH ×3 (03:41→08:49)
[2020-09-26] MEDS: Chlorhexidine MOUTHWASH 0.12% 15 ML UDC TOPICAL SCH ×6 (03:41→23:46)
[2020-09-26] MEDS: fentaNYL INFUSION 50 MCG/ML 2,500 MCG/50 ML BAG IV SCH ×2 (03:42→18:53)
[2020-09-26 04:22] LABS: Hematocrit 23 % (42-52); Hemoglobin 7.6 g/dL (14.0-18.0); Mean Corpuscular HGB Conc 32 g/dL (31-36); Mean Corpuscular Hemoglobin 29 pg (27-31); Mean Corpuscular Volume 91 fL (80-94); Mean Platelet Volume 7.8 fL (7.4-10.4); Platelet Count 653 10^3/uL (150-450); Red Blood Count 2.59 10^6 /uL (4.18-5.48); Red Cell Distribution Width 18 % (10-15); White Blood Count 12.9 10^3/uL (3.5-10.8)
[2020-09-26 04:39] LABS: BUN/Creatinine Ratio 27.6 (8-20); Calcium 7.8 mg/dL (8.6-10.3); EGFR African American 72.6 (>60); Magnesium 1.7 mg/dL (1.9-2.7); Potassium 3.7 mmol/L (3.5-5.0)
[2020-09-26] MEDS ORDERED: Magnesium Sulfate 2 gm BAG 2 GM/50 ML BAG IVPB ONE (05:00)
[2020-09-26] MEDS: Midazolam 2 mg/2 ml VIAL 1 mg/ml 2 ml VIAL (2 mg) IV SLOW PU PRN (05:10)
[2020-09-26] MEDS: Saline FLUSH-CENTRAL 10 ML SYRINGE CENT\\PICC SCH ×2 (05:32→19:02)
[2020-09-26] MEDS: Heparin 5000 UNITS/ML 1 mL VIAL SUBCUT SCH (08:44)
[2020-09-26] MEDS: Multivitamins ADULT w/MIN LIQ 15 ML UDC PO SCH (08:44)
[2020-09-26] MEDS: Pantoprazole VIAL 40 MG VIAL IV SCH (08:44)
[2020-09-26] MEDS: Nystatin SUSPENSION 100,000 UNITS/ML UDC PO SCH ×4 (08:44→20:37)
[2020-09-26] MEDS: Collagenase 250 units/gm OINT 1 tube TOPICAL SCH ×2 (08:45→20:38)
[2020-09-26] MEDS ORDERED: Lorazepam PYXIS KEY PRN (09:40)
[2020-09-26] MEDS: LORazepam 2 mg VIAL 1 ml IV PUSH PRN (14:53)
[2020-09-26] MEDS ORDERED: Acetaminophen IV 1 GM/100ML 1,000 MG/100 ML VIAL IVPB ONE (15:44)
[2020-09-26] MEDS ORDERED: Furosemide 40 mg/4 ml IV VIAL IV SLOW PU ONE (16:00)
[2020-09-26] MEDS: Insulin GLARGINE 100 un/ml 10 ml VIAL SUBCUT SCH (20:39)
[2020-09-27] MEDS: LORazepam 2 mg VIAL 1 ml IV PUSH PRN ×3 (02:21→23:53)
[2020-09-27] MEDS: Chlorhexidine MOUTHWASH 0.12% 15 ML UDC TOPICAL SCH ×6 (03:54→23:14)
[2020-09-27 04:00] LABS: Hematocrit 22 % (42-52); Hemoglobin 7.1 g/dL (14.0-18.0); Mean Corpuscular HGB Conc 32 g/dL (31-36); Mean Corpuscular Hemoglobin 29 pg (27-31); Mean Corpuscular Volume 90 fL (80-94); Mean Platelet Volume 7.5 fL (7.4-10.4); Platelet Count 630 10^3/uL (150-450); Red Blood Count 2.46 10^6 /uL (4.18-5.48); Red Cell Distribution Width 18 % (10-15); White Blood Count 12.6 10^3/uL (3.5-10.8)
[2020-09-27 04:07] LABS: Activated Partial Thrombo Time 33.5 seconds (26.0-38.0); INR 1.25 (0.82-1.09)
[2020-09-27 04:16] LABS: BUN/Creatinine Ratio 26.5 (8-20); Calcium 8.3 mg/dL (8.6-10.3); EGFR African American 80.1 (>60); EGFR Non-African American 66.2 (>60); Potassium 3.7 mmol/L (3.5-5.0)
[2020-09-27] MEDS ORDERED: KCL 20 MEQ/100 ML IVPREMIX 20 MEQ/100 ML BAG IV ONE (05:12)
[2020-09-27] MEDS: Saline FLUSH-CENTRAL 10 ML SYRINGE CENT\\PICC SCH ×2 (05:53→18:19)
[2020-09-27] MEDS: Collagenase 250 units/gm OINT 1 tube TOPICAL SCH ×2 (07:52→19:26)
[2020-09-27] MEDS: Nystatin SUSPENSION 100,000 UNITS/ML UDC PO SCH ×4 (07:52→19:26)
[2020-09-27] MEDS: Multivitamins ADULT w/MIN LIQ 15 ML UDC PO SCH (07:52)
[2020-09-27 08:20] LABS: Magnesium 1.7 mg/dL (1.9-2.7)
[2020-09-27] MEDS ORDERED: Magnesium Sulf 4 GM/100 ML IV 4,000 MG/100 ML BAG IVPB ONE (09:00)
[2020-09-27] MEDS: fentaNYL INFUSION 50 MCG/ML 2,500 MCG/50 ML BAG IV SCH (13:13)
[2020-09-27] MEDS ORDERED: Bupivacaine 0.25% SDV 30 ML ONE ×2 (13:51→14:25)
[2020-09-27] MEDS ORDERED: Lidocaine 1% VIAL 10 MG/ML VIAL ONE ×2 (13:51→14:25)
[2020-09-27] MEDS ORDERED: Rocuronium 50 mg VIAL 10 mg/ml 5 ml VIAL (50 mg) ONE ×2 (14:15→14:34)
[2020-09-27] MEDS ORDERED: Lidocaine 2% PF 5 ML VIAL ONE (14:15)
[2020-09-27] MEDS ORDERED: Propofol 10 MG/ML 20 ML BTL ONE (14:15)
[2020-09-27] MEDS ORDERED: Midazolam 5 mg/5 ml VIAL 1 mg/ml 5 ml VIAL (5 mg) ONE (14:34)
[2020-09-27] MEDS ORDERED: fentaNYL 250 mcg/5 ml 50 MCG/ML 5 ml VIAL (250 MCG) ONE (14:34)
[2020-09-27] MEDS: Insulin GLARGINE 100 un/ml 10 ml VIAL SUBCUT SCH (19:10)
[2020-09-28] MEDS: Chlorhexidine MOUTHWASH 0.12% 15 ML UDC TOPICAL SCH ×6 (04:22→23:16)
[2020-09-28] MEDS: LORazepam 2 mg VIAL 1 ml IV PUSH PRN (04:31)
[2020-09-28 04:45] LABS: Hematocrit 23 % (42-52); Hemoglobin 7.4 g/dL (14.0-18.0); Mean Corpuscular HGB Conc 32 g/dL (31-36); Mean Corpuscular Hemoglobin 29 pg (27-31); Mean Corpuscular Volume 91 fL (80-94); Mean Platelet Volume 7.1 fL (7.4-10.4); Platelet Count 682 10^3/uL (150-450); Red Blood Count 2.53 10^6 /uL (4.18-5.48); Red Cell Distribution Width 18 % (10-15)
[2020-09-28 05:02] LABS: BUN/Creatinine Ratio 25.7 (8-20); Calcium 7.9 mg/dL (8.6-10.3); EGFR African American 87.2 (>60)
[2020-09-28] MEDS: Saline FLUSH-CENTRAL 10 ML SYRINGE CENT\\PICC SCH ×2 (06:27→17:43)
[2020-09-28] MEDS: Nystatin SUSPENSION 100,000 UNITS/ML UDC PO SCH ×4 (08:12→20:02)
[2020-09-28] MEDS: Multivitamins ADULT w/MIN LIQ 15 ML UDC PO SCH (08:13)
[2020-09-28] MEDS: Collagenase 250 units/gm OINT 1 tube TOPICAL SCH ×2 (10:15→20:03)
[2020-09-28] MEDS: Heparin 5000 UNITS/ML 1 mL VIAL SUBCUT SCH ×2 (15:59→20:02)
[2020-09-28 17:08] LABS: Calcium 8.3 mg/dL (8.6-10.3); EGFR African American 88.1 (>60); EGFR Non-African American 72.8 (>60)
[2020-09-28] MEDS: Insulin GLARGINE 100 un/ml 10 ml VIAL SUBCUT SCH (20:03)
[2020-09-29] MEDS: LORazepam 2 mg VIAL 1 ml IV PUSH PRN (04:25)
[2020-09-29] MEDS: Chlorhexidine MOUTHWASH 0.12% 15 ML UDC TOPICAL SCH ×2 (04:25→08:39)
[2020-09-29 04:54] LABS: Hematocrit 23 % (42-52); Hemoglobin 7.3 g/dL (14.0-18.0); Mean Corpuscular HGB Conc 32 g/dL (31-36); Mean Corpuscular Hemoglobin 29 pg (27-31); Mean Corpuscular Volume 91 fL (80-94); Mean Platelet Volume 7.5 fL (7.4-10.4); Platelet Count 614 10^3/uL (150-450); Red Blood Count 2.47 10^6 /uL (4.18-5.48); Red Cell Distribution Width 18 % (10-15); White Blood Count 13.7 10^3/uL (3.5-10.8)
[2020-09-29 05:11] LABS: BUN/Creatinine Ratio 24.3 (8-20); Calcium 8.3 mg/dL (8.6-10.3); EGFR African American 89.1 (>60); EGFR Non-African American 73.7 (>60); Potassium 3.5 mmol/L (3.5-5.0)
[2020-09-29] MEDS ORDERED: Potassium Chloride LIQUID 20 MEQ/15 ML LIQUID PO ONE (07:05)
[2020-09-29] MEDS: Collagenase 250 units/gm OINT 1 tube TOPICAL SCH ×2 (08:32→22:13)
[2020-09-29] MEDS: Multivitamins ADULT w/MIN LIQ 15 ML UDC PO SCH (08:38)
[2020-09-29] MEDS: Nystatin SUSPENSION 100,000 UNITS/ML UDC PO SCH ×4 (08:38→22:12)
[2020-09-29] MEDS: Heparin 5000 UNITS/ML 1 mL VIAL SUBCUT SCH ×2 (08:39→22:12)
[2020-09-29] MEDS: Saline FLUSH-CENTRAL 10 ML SYRINGE CENT\\PICC SCH ×2 (08:51→17:30)
[2020-09-29] MEDS ORDERED: Iodixanol (CONTRAST) 320 MG/ML 100 ML SDV IV ONE (11:23)
[2020-09-29 13:43] LABS: BUN/Creatinine Ratio 21.8 (8-20); C Reactive Protein 79.12 mg/L (<8.01); Calcium 7.9 mg/dL (8.6-10.3); EGFR African American 91.2 (>60); EGFR Non-African American 75.4 (>60)
[2020-09-29] MEDS: Meropenem 1 GM PREMIX(*) 1 GM/50 ML BAG IV SCH ×2 (15:32→23:43)
[2020-09-29] MEDS: Insulin GLARGINE 100 un/ml 10 ml VIAL SUBCUT SCH (22:12)
[2020-09-30] MEDS: LORazepam 2 mg VIAL 1 ml IV PUSH PRN (04:02)
[2020-09-30 06:25] LABS: Hematocrit 22 % (42-52); Hemoglobin 7.1 g/dL (14.0-18.0); Mean Corpuscular HGB Conc 32 g/dL (31-36); Mean Corpuscular Hemoglobin 29 pg (27-31); Mean Corpuscular Volume 92 fL (80-94); Mean Platelet Volume 7.6 fL (7.4-10.4); Platelet Count 532 10^3/uL (150-450); Red Blood Count 2.45 10^6 /uL (4.18-5.48); Red Cell Distribution Width 17 % (10-15); White Blood Count 14.1 10^3/uL (3.5-10.8)
[2020-09-30] MEDS: Meropenem 1 GM PREMIX(*) 1 GM/50 ML BAG IV SCH ×3 (06:32→22:40)
[2020-09-30] MEDS: Saline FLUSH-CENTRAL 10 ML SYRINGE CENT\\PICC SCH ×2 (06:36→18:26)
[2020-09-30 06:42] LABS: Calcium 8.1 mg/dL (8.6-10.3); EGFR African American 102.8 (>60); Potassium 3.4 mmol/L (3.5-5.0)
[2020-09-30] MEDS: Multivitamins ADULT w/MIN LIQ 15 ML UDC PO SCH (09:13)
[2020-09-30] MEDS: Collagenase 250 units/gm OINT 1 tube TOPICAL SCH ×3 (09:13→23:25)
[2020-09-30] MEDS: Nystatin SUSPENSION 100,000 UNITS/ML UDC PO SCH ×4 (09:13→21:03)
[2020-09-30] MEDS: Heparin 5000 UNITS/ML 1 mL VIAL SUBCUT SCH ×2 (09:14→21:04)
[2020-09-30] MEDS ORDERED: KCL 20 MEQ/100 ML IVPREMIX 20 MEQ/100 ML BAG IV ONE (11:21)
[2020-09-30] MEDS: Insulin GLARGINE 100 un/ml 10 ml VIAL SUBCUT SCH (21:04)
[2020-10-01] MEDS ORDERED: fentaNYL 100 mcg/2 ml 50 MCG/ML VIAL IV SLOW PU ONE (03:00)
[2020-10-01 05:44] LABS: Hematocrit 24 % (42-52); Hemoglobin 7.5 g/dL (14.0-18.0); Mean Corpuscular HGB Conc 32 g/dL (31-36); Mean Corpuscular Hemoglobin 29 pg (27-31); Mean Corpuscular Volume 91 fL (80-94); Mean Platelet Volume 7.4 fL (7.4-10.4); Platelet Count 544 10^3/uL (150-450); Red Cell Distribution Width 17 % (10-15); White Blood Count 13.3 10^3/uL (3.5-10.8)
[2020-10-01 06:03] LABS: BUN/Creatinine Ratio 24.4 (8-20); Calcium 7.9 mg/dL (8.6-10.3); EGFR Non-African American 95.8 (>60); Potassium 3.3 mmol/L (3.5-5.0)
[2020-10-01] MEDS: Meropenem 1 GM PREMIX(*) 1 GM/50 ML BAG IV SCH ×3 (07:29→21:52)
[2020-10-01] MEDS: Saline FLUSH-CENTRAL 10 ML SYRINGE CENT\\PICC SCH ×2 (07:29→18:17)
[2020-10-01] MEDS ORDERED: Magnesium Sulfate IV 1GM/100ML 1 GM/100 ML BAG IV ONE (07:45)
[2020-10-01] MEDS: Heparin 5000 UNITS/ML 1 mL VIAL SUBCUT SCH ×2 (08:08→19:43)
[2020-10-01] MEDS: Multivitamins ADULT w/MIN LIQ 15 ML UDC PO SCH (08:08)
[2020-10-01] MEDS: KCL 20 MEQ/100 ML IVPREMIX 20 MEQ/100 ML BAG IV SCH ×2 (08:09→11:32)
[2020-10-01] MEDS: Collagenase 250 units/gm OINT 1 tube TOPICAL SCH ×2 (08:40→19:42)
[2020-10-01] MEDS: Nystatin SUSPENSION 100,000 UNITS/ML UDC PO SCH ×4 (08:41→20:33)
[2020-10-01] MEDS: Ondansetron 4 mg VIAL 2 MG/ML 2 ml VIAL IV PRN (10:25)
[2020-10-01] MEDS: Insulin GLARGINE 100 un/ml 10 ml VIAL SUBCUT SCH (19:51)
[2020-10-01] MEDS: LORazepam 2 mg VIAL 1 ml IV PUSH PRN (23:15)
[2020-10-02 03:54] LABS: Hematocrit 23 % (42-52); Hemoglobin 7.2 g/dL (14.0-18.0); Mean Corpuscular HGB Conc 32 g/dL (31-36); Mean Corpuscular Hemoglobin 29 pg (27-31); Mean Corpuscular Volume 91 fL (80-94); Mean Platelet Volume 7.8 fL (7.4-10.4); Platelet Count 481 10^3/uL (150-450); Red Cell Distribution Width 17 % (10-15); White Blood Count 17.1 10^3/uL (3.5-10.8)
[2020-10-02 04:11] LABS: BUN/Creatinine Ratio 21.2 (8-20); Calcium 7.9 mg/dL (8.6-10.3); EGFR African American 111.3 (>60); EGFR Non-African American 91.9 (>60); Potassium 3.4 mmol/L (3.5-5.0)
[2020-10-02] MEDS: Saline FLUSH-CENTRAL 10 ML SYRINGE CENT\\PICC SCH ×2 (06:13→18:17)
[2020-10-02] MEDS: Multivitamins ADULT w/MIN LIQ 15 ML UDC PO SCH (07:45)
[2020-10-02] MEDS: Meropenem 1 GM PREMIX(*) 1 GM/50 ML BAG IV SCH ×3 (07:45→23:53)
[2020-10-02] MEDS: Nystatin SUSPENSION 100,000 UNITS/ML UDC PO SCH ×2 (07:45→13:19)
[2020-10-02] MEDS: Heparin 5000 UNITS/ML 1 mL VIAL SUBCUT SCH ×2 (07:45→21:18)
[2020-10-02] MEDS ORDERED: Potassium Chloride LIQUID 20 MEQ/15 ML LIQUID PO ONE (07:50)
[2020-10-02] MEDS ORDERED: Furosemide 40 mg/4 ml IV VIAL IV SLOW PU ONE (07:58)
[2020-10-02 08:11] LABS: Magnesium 1.6 mg/dL (1.9-2.7); Phosphorus 3.9 mg/dL (2.5-5.0)
[2020-10-02] MEDS: Collagenase 250 units/gm OINT 1 tube TOPICAL SCH ×2 (08:42→21:19)
[2020-10-02 08:57] LABS: C Reactive Protein 73.1 mg/L (<8.01)
[2020-10-02] MEDS ORDERED: Magnesium Sulf 4 GM/100 ML IV 4,000 MG/100 ML BAG IVPB ONE (12:00)
[2020-10-02] MEDS ORDERED: Propofol 10 MG/ML 20 ML BTL IV PUSH ONE (15:07)
[2020-10-02] MEDS ORDERED: Propofol 10 mg/ml 100 ML BTL 100 ML ONE (15:08)
[2020-10-02] MEDS ORDERED: Propofol 10 mg/ml 100 ML BTL 100 ML IV SCH (16:00)
[2020-10-02] MEDS ORDERED: Propofol* 20 ML VIAL - FOR IV LINE PRIMING ONLY SCH (16:00)
[2020-10-02] MEDS: Insulin GLARGINE 100 un/ml 10 ml VIAL SUBCUT SCH ×2 (21:40→21:45)
[2020-10-02] MEDS ORDERED: Insulin GLARGINE 100 un/ml 10 ml VIAL SUBCUT SCH (22:00)
[2020-10-03 04:52] LABS: Hematocrit 21 % (42-52); Hemoglobin 6.6 g/dL (14.0-18.0); Mean Corpuscular HGB Conc 32 g/dL (31-36); Mean Corpuscular Hemoglobin 29 pg (27-31); Mean Corpuscular Volume 90 fL (80-94); Mean Platelet Volume 7.7 fL (7.4-10.4); Platelet Count 415 10^3/uL (150-450); Red Blood Count 2.29 10^6 /uL (4.18-5.48); Red Cell Distribution Width 17 % (10-15); White Blood Count 16.5 10^3/uL (3.5-10.8)
[2020-10-03 05:09] LABS: Calcium 7.9 mg/dL (8.6-10.3); Magnesium 2.1 mg/dL (1.9-2.7); Phosphorus 3.9 mg/dL (2.5-5.0); Potassium 3.2 mmol/L (3.5-5.0)
[2020-10-03] MEDS ORDERED: Potassium Chloride LIQUID 20 MEQ/15 ML LIQUID PO ONE ×2 (05:32→08:07)
[2020-10-03 06:28] LABS: EGFR African American 112.8 (>60); EGFR Non-African American 93.2 (>60)
[2020-10-03] MEDS: Heparin 5000 UNITS/ML 1 mL VIAL SUBCUT SCH ×2 (08:00→20:44)
[2020-10-03] MEDS: Multivitamins ADULT w/MIN LIQ 15 ML UDC PO SCH (08:01)
[2020-10-03] MEDS: Saline FLUSH-CENTRAL 10 ML SYRINGE CENT\\PICC SCH ×2 (08:01→18:12)
[2020-10-03] MEDS: Meropenem 1 GM PREMIX(*) 1 GM/50 ML BAG IV SCH ×3 (08:01→22:57)
[2020-10-03] MEDS: Collagenase 250 units/gm OINT 1 tube TOPICAL SCH ×2 (08:45→21:04)
[2020-10-03] MEDS: Insulin GLARGINE 100 un/ml 10 ml VIAL SUBCUT SCH (20:45)
[2020-10-04 05:19] LABS: Hematocrit 23 % (42-52); Hemoglobin 7.5 g/dL (14.0-18.0); Mean Corpuscular HGB Conc 33 g/dL (31-36); Mean Corpuscular Hemoglobin 30 pg (27-31); Mean Corpuscular Volume 90 fL (80-94); Platelet Count 362 10^3/uL (150-450); Red Blood Count 2.53 10^6 /uL (4.18-5.48); Red Cell Distribution Width 17 % (10-15); White Blood Count 14.4 10^3/uL (3.5-10.8)
[2020-10-04 06:16] LABS: Calcium 7.7 mg/dL (8.6-10.3); Magnesium 1.4 mg/dL (1.9-2.7); Potassium 3.4 mmol/L (3.5-5.0)
[2020-10-04 06:23] LABS: BUN/Creatinine Ratio 28.8 (8-20); EGFR Non-African American 123.1 (>60); Phosphorus 2.8 mg/dL (2.5-5.0)
[2020-10-04] MEDS ORDERED: Potassium Chloride LIQUID 20 MEQ/15 ML LIQUID PO ONE (07:17)
[2020-10-04] MEDS ORDERED: Magnesium Sulf 4 GM/100 ML IV 4,000 MG/100 ML BAG IVPB ONE (07:30)
[2020-10-04] MEDS: Heparin 5000 UNITS/ML 1 mL VIAL SUBCUT SCH ×2 (07:47→20:55)
[2020-10-04] MEDS: Multivitamins ADULT w/MIN LIQ 15 ML UDC PO SCH (07:48)
[2020-10-04] MEDS: Meropenem 1 GM PREMIX(*) 1 GM/50 ML BAG IV SCH ×3 (07:49→22:42)
[2020-10-04] MEDS: Saline FLUSH-CENTRAL 10 ML SYRINGE CENT\\PICC SCH ×2 (09:26→19:14)
[2020-10-04] MEDS: Collagenase 250 units/gm OINT 1 tube TOPICAL SCH ×2 (09:26→20:55)
[2020-10-04] MEDS: Insulin GLARGINE 100 un/ml 10 ml VIAL SUBCUT SCH (20:56)
[2020-10-05 04:51] LABS: Hematocrit 22 % (42-52); Hemoglobin 7.4 g/dL (14.0-18.0); Mean Corpuscular HGB Conc 33 g/dL (31-36); Mean Corpuscular Hemoglobin 30 pg (27-31); Mean Corpuscular Volume 90 fL (80-94); Mean Platelet Volume 7.8 fL (7.4-10.4); Platelet Count 376 10^3/uL (150-450); Red Blood Count 2.51 10^6 /uL (4.18-5.48); Red Cell Distribution Width 16 % (10-15)
[2020-10-05 05:09] LABS: BUN/Creatinine Ratio 28.3 (8-20); Calcium 7.8 mg/dL (8.6-10.3); EGFR African American 166.3 (>60); EGFR Non-African American 137.4 (>60); Magnesium 1.7 mg/dL (1.9-2.7); Phosphorus 2.6 mg/dL (2.5-5.0); Potassium 3.4 mmol/L (3.5-5.0)
[2020-10-05] MEDS ORDERED: NS 0.9% 50 ML 50 ML ONE (07:45)
[2020-10-05] MEDS ORDERED: Potassium Chloride LIQUID 20 MEQ/15 ML LIQUID PO ONE (07:51)
[2020-10-05] MEDS: MEROPENEM IVPB SCH ×3 (07:58→22:56)
[2020-10-05] MEDS: NS 0.9% IVPB SCH ×3 (07:58→22:56)
[2020-10-05] MEDS: Saline FLUSH-CENTRAL 10 ML SYRINGE CENT\\PICC SCH ×2 (07:59→19:48)
[2020-10-05] MEDS ORDERED: Magnesium Sulf 4 GM/100 ML IV 4,000 MG/100 ML BAG IVPB ONE (08:00)
[2020-10-05] MEDS: Collagenase 250 units/gm OINT 1 tube TOPICAL SCH ×2 (09:00→21:46)
[2020-10-05] MEDS: Multivitamins ADULT w/MIN LIQ 15 ML UDC PO SCH (11:14)
[2020-10-05] MEDS: Heparin 5000 UNITS/ML 1 mL VIAL SUBCUT SCH ×2 (11:16→20:15)
[2020-10-05] MEDS: Insulin GLARGINE 100 un/ml 10 ml VIAL SUBCUT SCH (21:46)
[2020-10-06 01:11] LABS: Urine Appearance Clear; Urine Bilirubin Negative (Negative); Urine Blood Negative (Negative); Urine Color Yellow; Urine Glucose Negative (Negative); Urine Ketones Negative (Negative); Urine Nitrite Negative (Negative); Urine Protein Negative (Negative); Urine Specific Gravity 1.006 (1.010-1.030); Urine Urobilinogen Negative (Negative)
[2020-10-06] MEDS: Collagenase 250 units/gm OINT 1 tube TOPICAL SCH ×2 (10:00→21:54)
[2020-10-06] MEDS: MEROPENEM IVPB SCH (10:54)
[2020-10-06] MEDS: Saline FLUSH-CENTRAL 10 ML SYRINGE CENT\\PICC SCH ×2 (10:54→19:51)
[2020-10-06] MEDS: NS 0.9% IVPB SCH (10:54)
[2020-10-06] MEDS: Heparin 5000 UNITS/ML 1 mL VIAL SUBCUT SCH ×2 (10:55→21:54)
[2020-10-06] MEDS: Multivitamins ADULT w/MIN LIQ 15 ML UDC PO SCH (10:56)
[2020-10-06] MEDS: Insulin GLARGINE 100 un/ml 10 ml VIAL SUBCUT SCH (21:55)
[2020-10-07] MEDS: Heparin 5000 UNITS/ML 1 mL VIAL SUBCUT SCH ×2 (08:34→21:26)
[2020-10-07] MEDS: Multivitamins ADULT w/MIN LIQ 15 ML UDC PO SCH (08:34)
[2020-10-07] MEDS: Saline FLUSH-CENTRAL 10 ML SYRINGE CENT\\PICC SCH ×2 (08:34→18:45)
[2020-10-07] MEDS: Collagenase 250 units/gm OINT 1 tube TOPICAL SCH ×2 (08:35→21:26)
[2020-10-07 08:46] LABS: BUN/Creatinine Ratio 28.6 (8-20); EGFR African American 180.1 (>60); EGFR Non-African American 148.8 (>60); Magnesium 1.4 mg/dL (1.9-2.7); Phosphorus 2.6 mg/dL (2.5-5.0); Potassium 3.5 mmol/L (3.5-5.0)
[2020-10-07 08:59] LABS: ABS Basophils 0.1 10^3/ul (0-0.2); ABS Eosinophils 0.3 10^3/ul (0-0.6); ABS Monocytes 0.8 10^3/ul (0-0.8); ABS Neutrophils 7.7 10^3/ul (1.5-7.7); Eosinophil % 2.4 %; Hematocrit 25 % (42-52); Hemoglobin 8.3 g/dL (14.0-18.0); Lymphocyte % 18.4 %; Mean Corpuscular HGB Conc 33 g/dL (31-36); Mean Corpuscular Hemoglobin 30 pg (27-31); Mean Corpuscular Volume 90 fL (80-94); Platelet Count 445 10^3/uL (150-450); Red Blood Count 2.79 10^6 /uL (4.18-5.48); Red Cell Distribution Width 17 % (10-15); White Blood Count 10.8 10^3/uL (3.5-10.8)
[2020-10-07] MEDS ORDERED: Magnesium Sulfate 2 gm BAG 2 GM/50 ML BAG IVPB ONE (09:02)
[2020-10-07 09:30] LABS: Calcium 8.5 mg/dL (8.6-10.3)
[2020-10-07] MEDS ORDERED: Magnesium Sulf 4 GM/100 ML IV 4,000 MG/100 ML BAG IVPB ONE (10:00)
[2020-10-07] MEDS: KCL 20 MEQ/100 ML IVPREMIX 20 MEQ/100 ML BAG IV SCH ×2 (10:12→12:18)
[2020-10-07] MEDS: Insulin GLARGINE 100 un/ml 10 ml VIAL SUBCUT SCH (21:27)
[2020-10-08] MEDS: Saline FLUSH-CENTRAL 10 ML SYRINGE CENT\\PICC SCH ×2 (06:08→18:06)
[2020-10-08 06:12] LABS: ABS Basophils 0.1 10^3/ul (0-0.2); ABS Eosinophils 0.3 10^3/ul (0-0.6); ABS Lymphocytes 1.8 10^3/ul (1.0-4.8); ABS Monocytes 0.7 10^3/ul (0-0.8); ABS Neutrophils 7.9 10^3/ul (1.5-7.7); Eosinophil % 2.5 %; Hematocrit 28 % (42-52); Hemoglobin 8.9 g/dL (14.0-18.0); Lymphocyte % 16.5 %; Mean Corpuscular HGB Conc 31 g/dL (31-36); Mean Corpuscular Hemoglobin 29 pg (27-31); Mean Corpuscular Volume 93 fL (80-94); Mean Platelet Volume 7.8 fL (7.4-10.4); Nucleated Red Blood Cells % 0.1; Platelet Count 457 10^3/uL (150-450); Red Blood Count 3.02 10^6 /uL (4.18-5.48); Red Cell Distribution Width 17 % (10-15); White Blood Count 10.8 10^3/uL (3.5-10.8)
[2020-10-08 06:31] LABS: Albumin 3.1 g/dL (3.2-5.2); Albumin/Globulin Ratio 0.9 (1-3); Calcium 8.3 mg/dL (8.6-10.3); EGFR African American 205.2 (>60); EGFR Non-African American 169.6 (>60); Globulin 3.6 g/dL (2-4); Magnesium 1.6 mg/dL (1.9-2.7); Phosphorus 3.1 mg/dL (2.5-5.0); Potassium 3.9 mmol/L (3.5-5.0); Total Bilirubin 1.1 mg/dL (0.2-1.0); Total Protein 6.7 g/dL (6.4-8.9)
[2020-10-08] MEDS: Heparin 5000 UNITS/ML 1 mL VIAL SUBCUT SCH ×2 (09:32→20:43)
[2020-10-08] MEDS ORDERED: Magnesium Sulf 4 GM/100 ML IV 4,000 MG/100 ML BAG IVPB ONE (10:00)
[2020-10-08] MEDS: Collagenase 250 units/gm OINT 1 tube TOPICAL SCH ×2 (10:45→20:42)
[2020-10-08] MEDS: Multivitamins ADULT w/MIN LIQ 15 ML UDC PO SCH (10:46)
[2020-10-08] MEDS: Insulin GLARGINE 100 un/ml 10 ml VIAL SUBCUT SCH (20:43)
[2020-10-09 05:04] LABS: INR 1.23 (0.82-1.09)
[2020-10-09] MEDS: Saline FLUSH-CENTRAL 10 ML SYRINGE CENT\\PICC SCH ×2 (10:32→19:09)
[2020-10-09] MEDS: Multivitamins ADULT w/MIN LIQ 15 ML UDC PO SCH (10:32)
[2020-10-09] MEDS: Heparin 5000 UNITS/ML 1 mL VIAL SUBCUT SCH ×2 (10:32→22:18)
[2020-10-09] MEDS: Collagenase 250 units/gm OINT 1 tube TOPICAL SCH (11:03)
[2020-10-09 11:50] LABS: BUN/Creatinine Ratio 31.5 (8-20); Calcium 9.2 mg/dL (8.6-10.3); EGFR African American 187.8 (>60); EGFR Non-African American 155.2 (>60); Magnesium 1.5 mg/dL (1.9-2.7); Potassium 3.8 mmol/L (3.5-5.0)
[2020-10-09] MEDS ORDERED: Magnesium Sulf 4 GM/100 ML IV 4,000 MG/100 ML BAG IVPB ONE (12:29)
[2020-10-09] MEDS ORDERED: LORazepam 2 mg VIAL 1 ml IV PUSH PRN (15:54)
[2020-10-09] MEDS ORDERED: Lorazepam PYXIS KEY PRN ×2 (15:54→17:14)
[2020-10-09] MEDS: LORazepam 2 mg VIAL 1 ml IV PUSH PRN (17:29)
[2020-10-09] MEDS: Insulin GLARGINE 100 un/ml 10 ml VIAL SUBCUT SCH (22:19)
[2020-10-10] MEDS: Collagenase 250 units/gm OINT 1 tube TOPICAL SCH ×3 (00:10→22:07)
[2020-10-10] MEDS: LORazepam 2 mg VIAL 1 ml IV PUSH PRN (03:09)
[2020-10-10] MEDS: Saline FLUSH-CENTRAL 10 ML SYRINGE CENT\\PICC SCH ×2 (06:19→19:57)
[2020-10-10 06:52] LABS: Magnesium 1.9 mg/dL (1.9-2.7)
[2020-10-10] MEDS: Heparin 5000 UNITS/ML 1 mL VIAL SUBCUT SCH ×2 (07:39→21:57)
[2020-10-10 07:52] LABS: ABS Basophils 0.1 10^3/ul (0-0.2); ABS Eosinophils 0.3 10^3/ul (0-0.6); ABS Lymphocytes 1.6 10^3/ul (1.0-4.8); ABS Monocytes 0.9 10^3/ul (0-0.8); ABS Neutrophils 7.6 10^3/ul (1.5-7.7); Hematocrit 27 % (42-52); Hemoglobin 8.7 g/dL (14.0-18.0); Lymphocyte % 15.3 %; Mean Corpuscular HGB Conc 33 g/dL (31-36); Mean Corpuscular Hemoglobin 30 pg (27-31); Mean Corpuscular Volume 92 fL (80-94); Mean Platelet Volume 7.8 fL (7.4-10.4); Platelet Count 464 10^3/uL (150-450); Red Cell Distribution Width 17 % (10-15); White Blood Count 10.6 10^3/uL (3.5-10.8)
[2020-10-10 07:59] LABS: BUN/Creatinine Ratio 32.3 (8-20); Calcium 9.1 mg/dL (8.6-10.3); EGFR African American 160.1 (>60); EGFR Non-African American 132.3 (>60); Potassium 3.9 mmol/L (3.5-5.0)
[2020-10-10] MEDS ORDERED: ceFAZolin 1 GM X ONE DOSE (AddVan) IVPB (10:00)
[2020-10-10] MEDS ORDERED: ceFAZolin 1 GM ADVAN 1 GM ADDV.VIAL IVPB ONE (10:05)
[2020-10-10] MEDS ORDERED: fentaNYL 100 mcg/2 ml 50 MCG/ML VIAL ONE (10:05)
[2020-10-10] MEDS ORDERED: Midazolam 10 mg/10 ml VIAL 1 mg/ml 10 ml VIAL (10 mg) ONE (10:05)
[2020-10-10] MEDS: Multivitamins ADULT w/MIN LIQ 15 ML UDC PO SCH (10:57)
[2020-10-10 14:05] LABS: HDL Cholesterol 32.3 mg/dL
[2020-10-10] MEDS: Insulin GLARGINE 100 un/ml 10 ml VIAL SUBCUT SCH (21:58)
[2020-10-11 05:14] LABS: ABS Basophils 0.1 10^3/ul (0-0.2); ABS Eosinophils 0.3 10^3/ul (0-0.6); ABS Lymphocytes 1.8 10^3/ul (1.0-4.8); ABS Monocytes 0.8 10^3/ul (0-0.8); ABS Neutrophils 7.2 10^3/ul (1.5-7.7); Hematocrit 27 % (42-52); Lymphocyte % 17.7 %; Mean Corpuscular HGB Conc 33 g/dL (31-36); Mean Corpuscular Hemoglobin 30 pg (27-31); Mean Corpuscular Volume 90 fL (80-94); Mean Platelet Volume 7.5 fL (7.4-10.4); Nucleated Red Blood Cells % 0.1; Platelet Count 467 10^3/uL (150-450); Red Blood Count 3.02 10^6 /uL (4.18-5.48); Red Cell Distribution Width 17 % (10-15); White Blood Count 10.2 10^3/uL (3.5-10.8)
[2020-10-11 05:37] LABS: Albumin 3.2 g/dL (3.2-5.2); Albumin/Globulin Ratio 0.8 (1-3); Calcium 9.5 mg/dL (8.6-10.3); EGFR African American 169.6 (>60); EGFR Non-African American 140.1 (>60); Globulin 3.9 g/dL (2-4); Potassium 3.6 mmol/L (3.5-5.0); Total Bilirubin 1.3 mg/dL (0.2-1.0); Total Protein 7.1 g/dL (6.4-8.9)
[2020-10-11] MEDS: Saline FLUSH-CENTRAL 10 ML SYRINGE CENT\\PICC SCH ×2 (06:27→22:13)
[2020-10-11] MEDS: Heparin 5000 UNITS/ML 1 mL VIAL SUBCUT SCH ×2 (12:23→22:14)
[2020-10-11] MEDS: Lansoprazole SUSP ORALSYR 3 MG/ML PO SCH (12:24)
[2020-10-11] MEDS: Multivitamins ADULT w/MIN LIQ 15 ML UDC PO SCH (12:28)
[2020-10-11] MEDS: Collagenase 250 units/gm OINT 1 tube TOPICAL SCH ×2 (13:07→22:14)
[2020-10-11] MEDS: Insulin GLARGINE 100 un/ml 10 ml VIAL SUBCUT SCH (22:14)
[2020-10-12] MEDS ORDERED: Alteplase (CATHFLO) 2 MG VIAL IV ONE (05:07)
[2020-10-12 06:10] LABS: Hematocrit 27 % (42-52); Hemoglobin 8.9 g/dL (14.0-18.0); Mean Corpuscular HGB Conc 32 g/dL (31-36); Mean Corpuscular Hemoglobin 30 pg (27-31); Mean Corpuscular Volume 91 fL (80-94); Mean Platelet Volume 7.6 fL (7.4-10.4); Platelet Count 435 10^3/uL (150-450); Red Cell Distribution Width 17 % (10-15)
[2020-10-12 06:11] LABS: ABS Basophils 0.3 10^3/ul (0-0.2); ABS Eosinophils 0.3 10^3/ul (0-0.6); ABS Lymphocytes 1.7 10^3/ul (1.0-4.8); ABS Monocytes 0.7 10^3/ul (0-0.8); Eosinophil % 2.7 %; Lymphocyte % 15.3 %
[2020-10-12 08:14] LABS: Calcium 9.3 mg/dL (8.6-10.3); EGFR African American 169.6 (>60); EGFR Non-African American 140.1 (>60); Potassium 3.5 mmol/L (3.5-5.0)
[2020-10-12] MEDS: LORazepam 2 mg VIAL 1 ml IV PUSH PRN (08:49)
[2020-10-12] MEDS: Collagenase 250 units/gm OINT 1 tube TOPICAL SCH ×2 (08:53→20:18)
[2020-10-12] MEDS: Multivitamins ADULT w/MIN LIQ 15 ML UDC PO SCH (08:53)
[2020-10-12] MEDS: Saline FLUSH-CENTRAL 10 ML SYRINGE CENT\\PICC SCH ×2 (08:54→20:07)
[2020-10-12] MEDS: Heparin 5000 UNITS/ML 1 mL VIAL SUBCUT SCH ×2 (08:54→20:17)
[2020-10-12] MEDS: Lansoprazole SUSP ORALSYR 3 MG/ML PO SCH (08:54)
[2020-10-12] MEDS ORDERED: LORazepam 2 mg VIAL 1 ml IV PUSH PRN (16:04)
[2020-10-12] MEDS ORDERED: LORazepam 2 mg VIAL 1 ml IV PUSH ONE (19:46)
[2020-10-12] MEDS: Insulin GLARGINE 100 un/ml 10 ml VIAL SUBCUT SCH (20:17)
[2020-10-13 05:50] LABS: ABS Basophils 0.3 10^3/ul (0-0.2); ABS Eosinophils 0.3 10^3/ul (0-0.6); ABS Lymphocytes 1.4 10^3/ul (1.0-4.8); ABS Monocytes 0.7 10^3/ul (0-0.8); ABS Neutrophils 6.4 10^3/ul (1.5-7.7); Eosinophil % 3.1 %; Hematocrit 26 % (42-52); Hemoglobin 8.6 g/dL (14.0-18.0); Mean Corpuscular HGB Conc 33 g/dL (31-36); Mean Corpuscular Hemoglobin 30 pg (27-31); Mean Corpuscular Volume 89 fL (80-94); Mean Platelet Volume 7.3 fL (7.4-10.4); Platelet Count 393 10^3/uL (150-450); Red Blood Count 2.89 10^6 /uL (4.18-5.48); Red Cell Distribution Width 16 % (10-15)
[2020-10-13] MEDS: Saline FLUSH-CENTRAL 10 ML SYRINGE CENT\\PICC SCH ×2 (08:48→17:35)
[2020-10-13] MEDS: Heparin 5000 UNITS/ML 1 mL VIAL SUBCUT SCH ×2 (08:49→20:30)
[2020-10-13] MEDS: Multivitamins ADULT w/MIN LIQ 15 ML UDC PO SCH (08:51)
[2020-10-13] MEDS: Collagenase 250 units/gm OINT 1 tube TOPICAL SCH ×2 (08:51→20:29)
[2020-10-13] MEDS: Lansoprazole SUSP ORALSYR 3 MG/ML PO SCH (08:51)
[2020-10-13] MEDS: Insulin GLARGINE 100 un/ml 10 ml VIAL SUBCUT SCH (21:42)
[2020-10-14] MEDS: Saline FLUSH-CENTRAL 10 ML SYRINGE CENT\\PICC SCH ×2 (06:58→17:50)
[2020-10-14] MEDS: Collagenase 250 units/gm OINT 1 tube TOPICAL SCH ×2 (10:03→23:13)
[2020-10-14] MEDS: Multivitamins ADULT w/MIN LIQ 15 ML UDC PO SCH (10:03)
[2020-10-14] MEDS: Lansoprazole SUSP ORALSYR 3 MG/ML PO SCH (10:03)
[2020-10-14] MEDS: Heparin 5000 UNITS/ML 1 mL VIAL SUBCUT SCH (10:04)
[2020-10-14] MEDS: Insulin GLARGINE 100 un/ml 10 ml VIAL SUBCUT SCH (23:14)
[2020-10-15] MEDS: Saline FLUSH-CENTRAL 10 ML SYRINGE CENT\\PICC SCH ×2 (06:25→19:13)
[2020-10-15 07:11] LABS: ABS Eosinophils 0.4 10^3/ul (0-0.6); ABS Lymphocytes 1.4 10^3/ul (1.0-4.8); ABS Monocytes 0.4 10^3/ul (0-0.8); ABS Neutrophils 3.8 10^3/ul (1.5-7.7); Eosinophil % 5.8 %; Hematocrit 24 % (42-52); Lymphocyte % 23.5 %; Mean Corpuscular HGB Conc 33 g/dL (31-36); Mean Corpuscular Hemoglobin 30 pg (27-31); Mean Corpuscular Volume 90 fL (80-94); Mean Platelet Volume 7.9 fL (7.4-10.4); Platelet Count 348 10^3/uL (150-450); Red Cell Distribution Width 17 % (10-15); White Blood Count 6.1 10^3/uL (3.5-10.8)
[2020-10-15 07:32] LABS: Anion Gap 9 mmol/L (2-11); BUN/Creatinine Ratio 31.5 (8-20); Blood Urea Nitrogen 17 mg/dL (6-24); CO2 Carbon Dioxide 28 mmol/L (22-32); Calcium 9.2 mg/dL (8.6-10.3); Chloride 102 mmol/L (101-111); EGFR African American 187.8 (>60); EGFR Non-African American 155.2 (>60); Glucose 196 mg/dL (70-100); Magnesium 1.1 mg/dL (1.9-2.7); Potassium 3.4 mmol/L (3.5-5.0); Sodium 139 mmol/L (135-145)
[2020-10-15 07:34] LABS: % Iron Saturation 13 % (15-55); Iron 40 ug/dL (50-212); Total Iron Binding Capacity 315 mcg/dL (250-450); Transferrin 225 mg/dL (203-362); Unsaturated Iron Binding < 300 ug/dL
[2020-10-15 07:56] LABS: Vitamin B12 592 pg/mL (180-914)
[2020-10-15] MEDS ORDERED: Magnesium Sulf 4 GM/100 ML IV 4,000 MG/100 ML BAG IVPB ONE (08:49)
[2020-10-15] MEDS: Lansoprazole SUSP ORALSYR 3 MG/ML PO SCH (10:23)
[2020-10-15] MEDS: Multivitamins ADULT w/MIN LIQ 15 ML UDC PO SCH (10:24)
[2020-10-15] MEDS: Enoxaparin 40 MG/0.4 ML SYR SUBCUT SCH (10:24)
[2020-10-15] MEDS: Collagenase 250 units/gm OINT 1 tube TOPICAL SCH ×2 (11:01→22:04)
[2020-10-15] MEDS ORDERED: Magnesium Sulfate IV 3 GM in NS 0.9% 100 ml BAG 100 ML IVPB ONE (17:00)
[2020-10-15] MEDS: Insulin GLARGINE 100 un/ml 10 ml VIAL SUBCUT SCH (21:57)
[2020-10-16 05:46] LABS: Hematocrit 26 % (42-52); Hemoglobin 8.2 g/dL (14.0-18.0); Mean Corpuscular HGB Conc 32 g/dL (31-36); Mean Corpuscular Hemoglobin 29 pg (27-31); Mean Corpuscular Volume 90 fL (80-94); Mean Platelet Volume 7.3 fL (7.4-10.4); Platelet Count 350 10^3/uL (150-450); Red Blood Count 2.85 10^6 /uL (4.18-5.48); Red Cell Distribution Width 17 % (10-15); White Blood Count 7.1 10^3/uL (3.5-10.8)
[2020-10-16 06:06] LABS: BUN/Creatinine Ratio 27.1 (8-20); Calcium 9.2 mg/dL (8.6-10.3); EGFR African American 169.6 (>60); EGFR Non-African American 140.1 (>60); Magnesium 1.7 mg/dL (1.9-2.7); Potassium 3.5 mmol/L (3.5-5.0)
[2020-10-16] MEDS: Saline FLUSH-CENTRAL 10 ML SYRINGE CENT\\PICC SCH ×2 (06:16→19:30)
[2020-10-16] MEDS ORDERED: Magnesium Sulfate 2 gm BAG 2 GM/50 ML BAG IVPB ONE (07:47)
[2020-10-16] MEDS: Enoxaparin 40 MG/0.4 ML SYR SUBCUT SCH (09:06)
[2020-10-16] MEDS: Multivitamins ADULT w/MIN LIQ 15 ML UDC PO SCH ×2 (09:09→10:17)
[2020-10-16] MEDS: Lansoprazole SUSP ORALSYR 3 MG/ML PO SCH ×2 (09:09→10:17)
[2020-10-16] MEDS: Collagenase 250 units/gm OINT 1 tube TOPICAL SCH ×2 (09:10→22:21)
[2020-10-16] MEDS ORDERED: Iron Sucrose 200 MG in NS 0.9% 100 ml BAG 100 ML IVPB ONE (14:05)
[2020-10-16] MEDS ORDERED: Dextrose 50% Syringe 50 ml 25 GM/50 ML SYRINGE IV PUSH PRN (14:06)
[2020-10-16] MEDS ORDERED: NS 0.9% 100 ml BAG 100 ML ONE (14:35)
[2020-10-16] MEDS ORDERED: Insulin GLARGINE 100 un/ml 10 ml VIAL SUBCUT SCH (21:00)
[2020-10-17 05:10] LABS: ABS Basophils 0.1 10^3/ul (0-0.2); ABS Eosinophils 0.4 10^3/ul (0-0.6); ABS Lymphocytes 1.9 10^3/ul (1.0-4.8); ABS Monocytes 0.7 10^3/ul (0-0.8); ABS Neutrophils 4.9 10^3/ul (1.5-7.7); Eosinophil % 5.3 %; Hematocrit 25 % (42-52); Hemoglobin 8.1 g/dL (14.0-18.0); Lymphocyte % 23.5 %; Mean Corpuscular HGB Conc 32 g/dL (31-36); Mean Corpuscular Hemoglobin 29 pg (27-31); Mean Corpuscular Volume 90 fL (80-94); Mean Platelet Volume 7.6 fL (7.4-10.4); Platelet Count 343 10^3/uL (150-450); Red Cell Distribution Width 17 % (10-15)
[2020-10-17 05:31] LABS: BUN/Creatinine Ratio 30.4 (8-20); Calcium 9.2 mg/dL (8.6-10.3); EGFR African American 180.1 (>60); EGFR Non-African American 148.8 (>60); Magnesium 1.6 mg/dL (1.9-2.7); Potassium 3.8 mmol/L (3.5-5.0)
[2020-10-17] MEDS: Saline FLUSH-CENTRAL 10 ML SYRINGE CENT\\PICC SCH ×2 (06:30→18:52)
[2020-10-17] MEDS ORDERED: Magnesium Sulf 4 GM/100 ML IV 4,000 MG/100 ML BAG IVPB ONE (06:32)
[2020-10-17] MEDS: Multivitamins ADULT w/MIN LIQ 15 ML UDC PO SCH (07:49)
[2020-10-17] MEDS: Collagenase 250 units/gm OINT 1 tube TOPICAL SCH ×2 (07:49→20:39)
[2020-10-17] MEDS: Lansoprazole SUSP ORALSYR 3 MG/ML PO SCH (07:49)
[2020-10-17] MEDS: Enoxaparin 40 MG/0.4 ML SYR SUBCUT SCH (07:49)
[2020-10-17] MEDS ORDERED: Haloperidol 5 mg/ml SDV IV/IM 5 MG/ML AMP IM PRN (14:47)
[2020-10-17] MEDS: Iron Sucrose 200 MG in NS 0.9% 100 ml BAG 100 ML IVPB SCH (17:42)
[2020-10-17] MEDS: Insulin GLARGINE 100 un/ml 10 ml VIAL SUBCUT SCH (21:06)
[2020-10-18] MEDS ORDERED: Lorazepam PYXIS KEY PRN (00:49)
[2020-10-18] MEDS: Saline FLUSH-CENTRAL 10 ML SYRINGE CENT\\PICC SCH ×2 (05:21→18:33)
[2020-10-18] MEDS ORDERED: Magnesium Sulf 4 GM/100 ML IV 4,000 MG/100 ML BAG IVPB ONE (06:24)
[2020-10-18] MEDS: Collagenase 250 units/gm OINT 1 tube TOPICAL SCH ×2 (08:30→20:35)
[2020-10-18] MEDS: Lansoprazole SUSP ORALSYR 3 MG/ML PO SCH (10:45)
[2020-10-18] MEDS: Multivitamins ADULT w/MIN LIQ 15 ML UDC PO SCH (10:45)
[2020-10-18] MEDS: Enoxaparin 40 MG/0.4 ML SYR SUBCUT SCH (10:56)
[2020-10-18] MEDS: LORazepam 2 mg VIAL 1 ml IV PUSH PRN ×2 (11:10→16:51)
[2020-10-18] MEDS: Iron Sucrose 200 MG in NS 0.9% 100 ml BAG 100 ML IVPB SCH (11:11)
[2020-10-18 11:34] LABS: ABS Basophils 0.1 10^3/ul (0-0.2); ABS Eosinophils 0.5 10^3/ul (0-0.6); ABS Lymphocytes 1.7 10^3/ul (1.0-4.8); ABS Monocytes 0.7 10^3/ul (0-0.8); ABS Neutrophils 7.1 10^3/ul (1.5-7.7); Eosinophil % 4.8 %; Hematocrit 26 % (42-52); Hemoglobin 8.4 g/dL (14.0-18.0); Lymphocyte % 17.1 %; Mean Corpuscular HGB Conc 33 g/dL (31-36); Mean Corpuscular Hemoglobin 30 pg (27-31); Mean Corpuscular Volume 91 fL (80-94); Mean Platelet Volume 7.8 fL (7.4-10.4); Nucleated Red Blood Cells % 0.1; Platelet Count 363 10^3/uL (150-450); Red Blood Count 2.87 10^6 /uL (4.18-5.48); Red Cell Distribution Width 17 % (10-15); White Blood Count 10.1 10^3/uL (3.5-10.8)
[2020-10-18 12:06] LABS: Albumin 3.5 g/dL (3.2-5.2); Albumin/Globulin Ratio 1.2 (1-3); BUN/Creatinine Ratio 30.4 (8-20); EGFR African American 180.1 (>60); EGFR Non-African American 148.8 (>60); Potassium 4.2 mmol/L (3.5-5.0); Total Bilirubin 0.8 mg/dL (0.2-1.0); Total Protein 6.5 g/dL (6.4-8.9)
[2020-10-18] MEDS ORDERED: NS 0.9% 1000 ml BAG 1,000 ML IV SCH (12:45)
[2020-10-18] MEDS: Insulin GLARGINE 100 un/ml 10 ml VIAL SUBCUT SCH (23:31)
[2020-10-19] MEDS: Saline FLUSH-CENTRAL 10 ML SYRINGE CENT\\PICC SCH ×2 (06:15→20:18)
[2020-10-19 06:39] LABS: ABS Basophils 0.1 10^3/ul (0-0.2); ABS Eosinophils 0.4 10^3/ul (0-0.6); ABS Lymphocytes 1.9 10^3/ul (1.0-4.8); ABS Monocytes 0.8 10^3/ul (0-0.8); ABS Neutrophils 6.8 10^3/ul (1.5-7.7); Eosinophil % 3.9 %; Hematocrit 25 % (42-52); Hemoglobin 8.4 g/dL (14.0-18.0); Mean Corpuscular HGB Conc 33 g/dL (31-36); Mean Corpuscular Hemoglobin 30 pg (27-31); Mean Corpuscular Volume 91 fL (80-94); Mean Platelet Volume 7.7 fL (7.4-10.4); Platelet Count 335 10^3/uL (150-450); Red Cell Distribution Width 17 % (10-15)
[2020-10-19] MEDS: Multivitamins ADULT w/MIN LIQ 15 ML UDC PO SCH (09:26)
[2020-10-19] MEDS: Enoxaparin 40 MG/0.4 ML SYR SUBCUT SCH (09:27)
[2020-10-19] MEDS: Lansoprazole SUSP ORALSYR 3 MG/ML PO SCH (09:30)
[2020-10-19] MEDS: Iron Sucrose 200 MG in NS 0.9% 100 ml BAG 100 ML IVPB SCH (09:42)
[2020-10-19] MEDS: Collagenase 250 units/gm OINT 1 tube TOPICAL SCH ×2 (09:51→22:38)
[2020-10-19] MEDS ORDERED: Magnesium Sulf 4 GM/100 ML IV 4,000 MG/100 ML BAG IVPB ONE (15:00)
[2020-10-19] MEDS: Insulin GLARGINE 100 un/ml 10 ml VIAL SUBCUT SCH (22:36)
[2020-10-20 06:02] LABS: ABS Basophils 0.1 10^3/ul (0-0.2); ABS Eosinophils 0.3 10^3/ul (0-0.6); ABS Lymphocytes 1.7 10^3/ul (1.0-4.8); ABS Monocytes 0.8 10^3/ul (0-0.8); ABS Neutrophils 6.3 10^3/ul (1.5-7.7); Eosinophil % 3.8 %; Hematocrit 26 % (42-52); Hemoglobin 8.7 g/dL (14.0-18.0); Lymphocyte % 18.6 %; Mean Corpuscular HGB Conc 33 g/dL (31-36); Mean Corpuscular Hemoglobin 30 pg (27-31); Mean Corpuscular Volume 91 fL (80-94); Mean Platelet Volume 7.4 fL (7.4-10.4); Platelet Count 331 10^3/uL (150-450); Red Blood Count 2.91 10^6 /uL (4.18-5.48); Red Cell Distribution Width 18 % (10-15); White Blood Count 9.2 10^3/uL (3.5-10.8)
[2020-10-20] MEDS ORDERED: Magnesium Sulf 4 GM/100 ML IV 4,000 MG/100 ML BAG IVPB ONE (07:53)
[2020-10-20] MEDS: Multivitamins ADULT w/MIN LIQ 15 ML UDC PO SCH (09:08)
[2020-10-20] MEDS: Insulin GLARGINE 100 un/ml 10 ml VIAL SUBCUT SCH ×2 (09:08→22:04)
[2020-10-20] MEDS: Lansoprazole SUSP ORALSYR 3 MG/ML PO SCH (09:08)
[2020-10-20] MEDS: Enoxaparin 40 MG/0.4 ML SYR SUBCUT SCH (09:10)
[2020-10-20] MEDS: Collagenase 250 units/gm OINT 1 tube TOPICAL SCH ×2 (16:21→22:05)
[2020-10-21 05:59] LABS: ABS Basophils 0.1 10^3/ul (0-0.2); ABS Eosinophils 0.4 10^3/ul (0-0.6); ABS Lymphocytes 1.7 10^3/ul (1.0-4.8); ABS Monocytes 0.7 10^3/ul (0-0.8); ABS Neutrophils 4.9 10^3/ul (1.5-7.7); Eosinophil % 4.9 %; Hematocrit 27 % (42-52); Hemoglobin 8.6 g/dL (14.0-18.0); Lymphocyte % 22.3 %; Mean Corpuscular HGB Conc 32 g/dL (31-36); Mean Corpuscular Hemoglobin 30 pg (27-31); Mean Corpuscular Volume 93 fL (80-94); Platelet Count 304 10^3/uL (150-450); Red Blood Count 2.87 10^6 /uL (4.18-5.48); Red Cell Distribution Width 18 % (10-15); White Blood Count 7.8 10^3/uL (3.5-10.8)
[2020-10-21] MEDS: Lansoprazole SUSP ORALSYR 3 MG/ML PO SCH (09:05)
[2020-10-21] MEDS: Insulin GLARGINE 100 un/ml 10 ml VIAL SUBCUT SCH ×2 (09:05→20:41)
[2020-10-21] MEDS: Multivitamins ADULT w/MIN LIQ 15 ML UDC PO SCH (09:05)
[2020-10-21] MEDS: Enoxaparin 40 MG/0.4 ML SYR SUBCUT SCH (09:06)
[2020-10-21] MEDS: Collagenase 250 units/gm OINT 1 tube TOPICAL SCH ×2 (09:47→21:13)
[2020-10-21] MEDS: LORazepam 2 mg VIAL 1 ml IV PUSH PRN (23:12)
[2020-10-22] MEDS: LORazepam 2 mg VIAL 1 ml IV PUSH PRN (03:59)
[2020-10-22 06:39] LABS: BUN/Creatinine Ratio 24.6 (8-20); Calcium 8.8 mg/dL (8.6-10.3); EGFR African American 176.4 (>60); EGFR Non-African American 145.8 (>60); Magnesium 1.3 mg/dL (1.9-2.7); Potassium 3.9 mmol/L (3.5-5.0)
[2020-10-22] MEDS ORDERED: Magnesium Sulf 4 GM/100 ML IV 4,000 MG/100 ML BAG IVPB ONE (07:22)
[2020-10-22] MEDS: Multivitamins ADULT w/MIN LIQ 15 ML UDC PO SCH (09:20)
[2020-10-22] MEDS: Enoxaparin 40 MG/0.4 ML SYR SUBCUT SCH (09:20)
[2020-10-22] MEDS: Lansoprazole SUSP ORALSYR 3 MG/ML PO SCH (09:21)
[2020-10-22] MEDS: Insulin GLARGINE 100 un/ml 10 ml VIAL SUBCUT SCH ×2 (09:23→22:51)
[2020-10-22] MEDS: Collagenase 250 units/gm OINT 1 tube TOPICAL SCH ×2 (11:22→23:12)
[2020-10-23 05:09] LABS: Hematocrit 28 % (42-52); Hemoglobin 9.1 g/dL (14.0-18.0); Mean Corpuscular HGB Conc 33 g/dL (31-36); Mean Corpuscular Hemoglobin 30 pg (27-31); Mean Corpuscular Volume 90 fL (80-94); Mean Platelet Volume 7.5 fL (7.4-10.4); Platelet Count 365 10^3/uL (150-450); Red Blood Count 3.07 10^6 /uL (4.18-5.48); Red Cell Distribution Width 18 % (10-15); White Blood Count 7.8 10^3/uL (3.5-10.8)
[2020-10-23] MEDS: Enoxaparin 40 MG/0.4 ML SYR SUBCUT SCH (08:45)
[2020-10-23] MEDS: Insulin GLARGINE 100 un/ml 10 ml VIAL SUBCUT SCH ×2 (08:46→22:49)
[2020-10-23] MEDS: Lansoprazole SUSP ORALSYR 3 MG/ML PO SCH (08:48)
[2020-10-23] MEDS: Multivitamins ADULT w/MIN LIQ 15 ML UDC PO SCH (08:48)
[2020-10-23] MEDS: Collagenase 250 units/gm OINT 1 tube TOPICAL SCH ×2 (13:49→20:28)
[2020-10-24] MEDS ORDERED: Polyethylene Glycol 3350 17 GM PACKET PO PRN (06:23)
[2020-10-24 06:31] LABS: ABS Basophils 0.1 10^3/ul (0-0.2); ABS Eosinophils 0.4 10^3/ul (0-0.6); ABS Lymphocytes 1.6 10^3/ul (1.0-4.8); ABS Monocytes 0.7 10^3/ul (0-0.8); ABS Neutrophils 4.2 10^3/ul (1.5-7.7); Eosinophil % 5.7 %; Hematocrit 28 % (42-52); Hemoglobin 9.1 g/dL (14.0-18.0); Lymphocyte % 23.3 %; Mean Corpuscular HGB Conc 33 g/dL (31-36); Mean Corpuscular Hemoglobin 30 pg (27-31); Mean Corpuscular Volume 91 fL (80-94); Mean Platelet Volume 7.6 fL (7.4-10.4); Nucleated Red Blood Cells % 0.1; Platelet Count 346 10^3/uL (150-450); Red Blood Count 3.09 10^6 /uL (4.18-5.48); Red Cell Distribution Width 17 % (10-15)
[2020-10-24] MEDS: Collagenase 250 units/gm OINT 1 tube TOPICAL SCH ×2 (06:37→10:47)
[2020-10-24] MEDS: Lansoprazole SUSP ORALSYR 3 MG/ML PO SCH (10:06)
[2020-10-24] MEDS: Multivitamins ADULT w/MIN LIQ 15 ML UDC PO SCH (10:06)
[2020-10-24] MEDS: Insulin GLARGINE 100 un/ml 10 ml VIAL SUBCUT SCH (10:07)
[2020-10-24] MEDS: Enoxaparin 40 MG/0.4 ML SYR SUBCUT SCH (10:07)
[2020-10-24 16:00] VITALS: BP 119/75
== END 2020-10-24 17:16 | disposition swing bed (61) | DRG 4 ==
LOC: ED 10:52 → MEDTELE 16:51 → ICU 09-10 04:11 → UNDODISIN 09-20 10:10 → SSU 10-09 13:38
PROVIDERS: ADMIT Internal Medicine; ATTEND Internal Medicine

== ENCOUNTER 2020-10-24 17:18 | Inpatient (IN) ==
[2020-10-24] MEDS ORDERED: Polyethylene Glycol 3350 17 GM PACKET PO PRN (18:31)
[2020-10-24] MEDS: Insulin GLARGINE 100 un/ml 10 ml VIAL SUBCUT SCH (20:46)
[2020-10-25] MEDS: Aspirin EC 81 mg TAB.EC (enteric coated) PO SCH (08:03)
[2020-10-25] MEDS: Multivitamins/Minerals TAB PO SCH (08:04)
[2020-10-25] MEDS: Enoxaparin 40 MG/0.4 ML SYR SUBCUT SCH (08:08)
[2020-10-25] MEDS: Insulin GLARGINE 100 un/ml 10 ml VIAL SUBCUT SCH ×2 (08:10→20:11)
[2020-10-25] MEDS ORDERED: Dextrose 50% Syringe 50 ml 25 GM/50 ML SYRINGE IV PUSH PRN (08:18)
[2020-10-26] MEDS: Aspirin EC 81 mg TAB.EC (enteric coated) PO SCH (08:02)
[2020-10-26] MEDS: Multivitamins/Minerals TAB PO SCH (08:02)
[2020-10-26] MEDS: Enoxaparin 40 MG/0.4 ML SYR SUBCUT SCH (08:03)
[2020-10-26] MEDS: Insulin GLARGINE 100 un/ml 10 ml VIAL SUBCUT SCH ×2 (08:14→21:39)
[2020-10-26] MEDS ORDERED: Ondansetron ODT 4 mg TAB 4 MG TAB SL PRN (08:26)
[2020-10-27] MEDS: Multivitamins/Minerals TAB PO SCH (10:26)
[2020-10-27] MEDS: Insulin GLARGINE 100 un/ml 10 ml VIAL SUBCUT SCH ×2 (10:26→21:48)
[2020-10-27] MEDS: Enoxaparin 40 MG/0.4 ML SYR SUBCUT SCH (10:26)
[2020-10-27] MEDS: Aspirin EC 81 mg TAB.EC (enteric coated) PO SCH (10:26)
[2020-10-28] MEDS: Multivitamins/Minerals TAB PO SCH (08:33)
[2020-10-28] MEDS: Aspirin EC 81 mg TAB.EC (enteric coated) PO SCH (08:33)
[2020-10-28] MEDS: Enoxaparin 40 MG/0.4 ML SYR SUBCUT SCH (08:34)
[2020-10-28] MEDS: Insulin GLARGINE 100 un/ml 10 ml VIAL SUBCUT SCH ×2 (08:36→20:48)
[2020-10-29] MEDS: Enoxaparin 40 MG/0.4 ML SYR SUBCUT SCH (08:29)
[2020-10-29] MEDS: Multivitamins/Minerals TAB PO SCH (08:30)
[2020-10-29] MEDS: Aspirin EC 81 mg TAB.EC (enteric coated) PO SCH (08:30)
[2020-10-29] MEDS: Insulin GLARGINE 100 un/ml 10 ml VIAL SUBCUT SCH ×2 (08:30→21:00)
[2020-10-30] MEDS: Insulin GLARGINE 100 un/ml 10 ml VIAL SUBCUT SCH ×2 (08:36→20:46)
[2020-10-30] MEDS: Enoxaparin 40 MG/0.4 ML SYR SUBCUT SCH (08:36)
[2020-10-30] MEDS: Aspirin EC 81 mg TAB.EC (enteric coated) PO SCH (08:37)
[2020-10-30] MEDS: Multivitamins/Minerals TAB PO SCH (08:38)
[2020-10-30] MEDS: Magnesium Hydroxide LIQ 30 ML UDC PO PRN ×2 (17:08→20:47)
[2020-10-31] MEDS: NS 0.9% 1000 ml BAG 1,000 ML IV ONE ×2 (01:20→03:51)
[2020-10-31 02:37] LABS: ABS Basophils 0.1 10^3/ul (0-0.2); ABS Eosinophils 0.2 10^3/ul (0-0.6); ABS Lymphocytes 1.2 10^3/ul (1.0-4.8); ABS Monocytes 0.6 10^3/ul (0-0.8); ABS Neutrophils 9.6 10^3/ul (1.5-7.7); Eosinophil % 1.8 %; Hematocrit 34 % (42-52); Hemoglobin 10.8 g/dL (14.0-18.0); Lymphocyte % 10.5 %; Mean Corpuscular HGB Conc 32 g/dL (31-36); Mean Corpuscular Hemoglobin 29 pg (27-31); Mean Corpuscular Volume 92 fL (80-94); Nucleated Red Blood Cells % 0.1; Platelet Count 432 10^3/uL (150-450); Red Blood Count 3.71 10^6 /uL (4.18-5.48); Red Cell Distribution Width 18 % (10-15); White Blood Count 11.8 10^3/uL (3.5-10.8)
[2020-10-31 02:52] LABS: Albumin 3.5 g/dL (3.2-5.2); Calcium 8.8 mg/dL (8.6-10.3); Potassium 4.2 mmol/L (3.5-5.0); Total Bilirubin 0.6 mg/dL (0.2-1.0)
[2020-10-31 02:59] LABS: Albumin/Globulin Ratio 1.1 (1-3); BUN/Creatinine Ratio 20.2 (8-20); EGFR African American 112.8 (>60); EGFR Non-African American 93.2 (>60); Globulin 3.3 g/dL (2-4); Total Protein 6.8 g/dL (6.4-8.9)
[2020-10-31] MEDS: Insulin GLARGINE 100 un/ml 10 ml VIAL SUBCUT SCH ×2 (08:21→20:10)
[2020-10-31] MEDS: Enoxaparin 40 MG/0.4 ML SYR SUBCUT SCH (08:21)
[2020-10-31] MEDS: Multivitamins/Minerals TAB PO SCH (08:22)
[2020-10-31] MEDS: Aspirin EC 81 mg TAB.EC (enteric coated) PO SCH (08:22)
[2020-10-31] MEDS: NS 0.9% 1000 ml BAG 1,000 ML IV SCH (15:32)
[2020-10-31] MEDS ORDERED: Cefepime 1 GM VIAL IM ONE (19:27)
[2020-10-31] MEDS: Magnesium Hydroxide LIQ 30 ML UDC PO PRN (19:46)
[2020-10-31] MEDS ORDERED: CEFEPIME 2 GM in Dextrose 50 mL IV ONE (20:00)
[2020-10-31 20:07] LABS: Urine Appearance Clear; Urine Bilirubin Negative (Negative); Urine Blood Negative (Negative); Urine Color Yellow; Urine Glucose Negative (Negative); Urine Ketones Negative (Negative); Urine Nitrite Negative (Negative); Urine Protein Negative (Negative); Urine Specific Gravity 1.017 (1.010-1.030); Urine Urobilinogen Negative (Negative)
[2020-11-01] MEDS: NS 0.9% 1000 ml BAG 1,000 ML IV SCH (02:54)
[2020-11-01 07:08] LABS: ABS Basophils 0.1 10^3/ul (0-0.2); ABS Lymphocytes 0.8 10^3/ul (1.0-4.8); Eosinophil % 0.1 %; Hematocrit 32 % (42-52); Hemoglobin 10.3 g/dL (14.0-18.0); Lymphocyte % 5.9 %; Mean Corpuscular HGB Conc 32 g/dL (31-36); Mean Corpuscular Hemoglobin 29 pg (27-31); Mean Corpuscular Volume 90 fL (80-94); Platelet Count 370 10^3/uL (150-450); Red Blood Count 3.52 10^6 /uL (4.18-5.48); Red Cell Distribution Width 18 % (10-15); White Blood Count 12.8 10^3/uL (3.5-10.8)
[2020-11-01 07:26] LABS: Albumin 3.4 g/dL (3.2-5.2); BUN/Creatinine Ratio 16.2 (8-20); Calcium 8.2 mg/dL (8.6-10.3); EGFR African American 143.9 (>60); EGFR Non-African American 118.9 (>60); Globulin 3.4 g/dL (2-4); Potassium 3.9 mmol/L (3.5-5.0); Total Protein 6.8 g/dL (6.4-8.9)
[2020-11-01 07:38] VITALS: BP 142/77
[2020-11-01] MEDS ORDERED: NS 0.9% 1000 ml BAG 1,000 ML IV SCH (08:30)
[2020-11-01] MEDS: Multivitamins/Minerals TAB PO SCH (09:01)
[2020-11-01] MEDS: Aspirin EC 81 mg TAB.EC (enteric coated) PO SCH (09:01)
[2020-11-01] MEDS: Enoxaparin 40 MG/0.4 ML SYR SUBCUT SCH (09:02)
[2020-11-01] MEDS: Insulin GLARGINE 100 un/ml 10 ml VIAL SUBCUT SCH (10:02)
[2020-11-01] MEDS ORDERED: Iodixanol (CONTRAST) 320 MG/ML 100 ML SDV IV ONE (11:51)
[2020-11-01] MEDS ORDERED: Cefepime 2 GM in Dextrose 2 GM/50 ML BAG IV SCH (15:00)
== END 2020-11-01 15:27 | disposition short-term general hospital (02) | DRG 423 ==
LOC: SSU 18:03 → MED 10-25 18:20
PROVIDERS: ADMIT Internal Medicine; ATTEND Internal Medicine

== ENCOUNTER 2020-11-01 15:30 | Inpatient (IN) ==
[2020-11-01] MEDS ORDERED: Dextrose 50% Syringe 50 ml 25 GM/50 ML SYRINGE IV PUSH PRN (18:19)
[2020-11-01] MEDS ORDERED: Magnesium Hydroxide LIQ 30 ML UDC PO PRN (18:20)
[2020-11-01] MEDS: NS 0.9% 1000 ml BAG 1,000 ML IV SCH (20:03)
[2020-11-01] MEDS: Insulin GLARGINE 100 un/ml 10 ml VIAL SUBCUT SCH (22:20)
[2020-11-02] MEDS: NS 0.9% 1000 ml BAG 1,000 ML IV SCH ×4 (01:10→22:50)
[2020-11-02] MEDS: Cefepime 2 GM in Dextrose 2 GM/50 ML BAG IV SCH ×2 (04:01→16:02)
[2020-11-02 08:44] LABS: ABS Eosinophils 0.1 10^3/ul (0-0.6); ABS Lymphocytes 1.1 10^3/ul (1.0-4.8); ABS Neutrophils 8.4 10^3/ul (1.5-7.7); Eosinophil % 0.6 %; Hematocrit 30 % (42-52); Hemoglobin 9.8 g/dL (14.0-18.0); Lymphocyte % 10.4 %; Mean Corpuscular HGB Conc 32 g/dL (31-36); Mean Corpuscular Hemoglobin 30 pg (27-31); Mean Corpuscular Volume 91 fL (80-94); Mean Platelet Volume 7.6 fL (7.4-10.4); Platelet Count 304 10^3/uL (150-450); Red Blood Count 3.31 10^6 /uL (4.18-5.48); Red Cell Distribution Width 18 % (10-15); White Blood Count 10.6 10^3/uL (3.5-10.8)
[2020-11-02 09:01] LABS: Albumin 3.2 g/dL (3.2-5.2); Albumin/Globulin Ratio 0.9 (1-3); BUN/Creatinine Ratio 16.4 (8-20); Calcium 8.1 mg/dL (8.6-10.3); EGFR African American 183.9 (>60); EGFR Non-African American 151.9 (>60); Globulin 3.5 g/dL (2-4); Potassium 3.7 mmol/L (3.5-5.0); Total Bilirubin 0.8 mg/dL (0.2-1.0); Total Protein 6.7 g/dL (6.4-8.9)
[2020-11-02] MEDS: Aspirin EC 81 mg TAB.EC (enteric coated) PO SCH (09:24)
[2020-11-02] MEDS: Multivitamins/Minerals TAB PO SCH (09:25)
[2020-11-02] MEDS: Enoxaparin 40 MG/0.4 ML SYR SUBCUT SCH (09:25)
[2020-11-02] MEDS: Insulin GLARGINE 100 un/ml 10 ml VIAL SUBCUT SCH (09:26)
[2020-11-02] MEDS ORDERED: Vancomycin per Pharmacy 1 EA NOTE FOLLOW UP PRN (18:57)
[2020-11-02] MEDS: Calcium Carb (TUMS) 500 mg CHEW TAB PO SCH (19:48)
[2020-11-02] MEDS: Ondansetron ODT 4 mg TAB 4 MG TAB PO PRN (19:58)
[2020-11-02] MEDS ORDERED: Vancomycin 1,250 MG in NS 0.9% 250 ml 250 ML IVPB ONE (20:00)
[2020-11-02] MEDS: metroNIDAZOLE IV 500 MG/100ML 500 MG/100 ML BAG IVPB SCH (23:00)
[2020-11-03] MEDS: Cefepime 2 GM in Dextrose 2 GM/50 ML BAG IV SCH ×2 (03:04→16:28)
[2020-11-03] MEDS: Vancomycin 1,250 MG in NS 0.9% 250 ml 250 ML IVPB SCH ×3 (04:35→22:45)
[2020-11-03] MEDS: Calcium Carb (TUMS) 500 mg CHEW TAB PO SCH ×5 (05:59→19:41)
[2020-11-03 08:30] LABS: ABS Basophils 0.1 10^3/ul (0-0.2); ABS Eosinophils 0.2 10^3/ul (0-0.6); ABS Monocytes 0.8 10^3/ul (0-0.8); ABS Neutrophils 5.5 10^3/ul (1.5-7.7); Eosinophil % 2.5 %; Hematocrit 29 % (42-52); Hemoglobin 9.2 g/dL (14.0-18.0); Lymphocyte % 13.4 %; Mean Corpuscular HGB Conc 31 g/dL (31-36); Mean Corpuscular Hemoglobin 29 pg (27-31); Mean Corpuscular Volume 93 fL (80-94); Mean Platelet Volume 7.1 fL (7.4-10.4); Platelet Count 304 10^3/uL (150-450); Red Blood Count 3.16 10^6 /uL (4.18-5.48); Red Cell Distribution Width 18 % (10-15); White Blood Count 7.6 10^3/uL (3.5-10.8)
[2020-11-03 08:48] LABS: C Reactive Protein 267.12 mg/L (<8.01); Calcium 8.5 mg/dL (8.6-10.3); EGFR African American 187.8 (>60); EGFR Non-African American 155.2 (>60); Potassium 3.9 mmol/L (3.5-5.0)
[2020-11-03] MEDS: Multivitamins/Minerals TAB PO SCH (08:59)
[2020-11-03] MEDS ORDERED: Insulin GLARGINE 100 un/ml 10 ml VIAL SUBCUT SCH (09:00)
[2020-11-03] MEDS: Aspirin EC 81 mg TAB.EC (enteric coated) PO SCH (09:00)
[2020-11-03] MEDS: Enoxaparin 40 MG/0.4 ML SYR SUBCUT SCH (09:02)
[2020-11-03] MEDS: metroNIDAZOLE IV 500 MG/100ML 500 MG/100 ML BAG IVPB SCH ×2 (09:03→21:37)
[2020-11-03] MEDS: NS 0.9% 1000 ml BAG 1,000 ML IV SCH (13:34)
[2020-11-03] MEDS ORDERED: Vancomycin Trough Check NOTE FOLLOW UP ONE (19:30)
[2020-11-03] MEDS: Ondansetron ODT 4 mg TAB 4 MG TAB PO PRN (19:41)
[2020-11-04] MEDS: Cefepime 2 GM in Dextrose 2 GM/50 ML BAG IV SCH ×2 (03:06→16:06)
[2020-11-04] MEDS: Vancomycin 1,250 MG in NS 0.9% 250 ml 250 ML IVPB SCH ×3 (04:10→19:55)
[2020-11-04 07:57] LABS: ABS Basophils 0.1 10^3/ul (0-0.2); ABS Eosinophils 0.2 10^3/ul (0-0.6); ABS Monocytes 0.7 10^3/ul (0-0.8); ABS Neutrophils 5.2 10^3/ul (1.5-7.7); Eosinophil % 2.9 %; Hematocrit 30 % (42-52); Hemoglobin 9.5 g/dL (14.0-18.0); Lymphocyte % 13.9 %; Mean Corpuscular HGB Conc 32 g/dL (31-36); Mean Corpuscular Hemoglobin 29 pg (27-31); Mean Corpuscular Volume 91 fL (80-94); Mean Platelet Volume 7.3 fL (7.4-10.4); Platelet Count 363 10^3/uL (150-450); Red Cell Distribution Width 18 % (10-15); White Blood Count 7.2 10^3/uL (3.5-10.8)
[2020-11-04 08:13] LABS: BUN/Creatinine Ratio 7.7 (8-20); C Reactive Protein 193.49 mg/L (<8.01); Calcium 8.9 mg/dL (8.6-10.3); EGFR African American 196.2 (>60); EGFR Non-African American 162.1 (>60)
[2020-11-04] MEDS: Enoxaparin 40 MG/0.4 ML SYR SUBCUT SCH (08:31)
[2020-11-04] MEDS: Aspirin EC 81 mg TAB.EC (enteric coated) PO SCH (08:34)
[2020-11-04] MEDS: Multivitamins/Minerals TAB PO SCH (08:34)
[2020-11-04] MEDS: Calcium Carb (TUMS) 500 mg CHEW TAB PO SCH ×4 (08:36→21:00)
[2020-11-04] MEDS: metroNIDAZOLE IV 500 MG/100ML 500 MG/100 ML BAG IVPB SCH ×2 (08:38→22:21)
[2020-11-04] MEDS: Insulin GLARGINE 100 un/ml 10 ml VIAL SUBCUT SCH (22:22)
[2020-11-05] MEDS: Cefepime 2 GM in Dextrose 2 GM/50 ML BAG IV SCH ×2 (02:45→17:55)
[2020-11-05] MEDS: Vancomycin 1,250 MG in NS 0.9% 250 ml 250 ML IVPB SCH ×3 (04:24→19:32)
[2020-11-05] MEDS: Calcium Carb (TUMS) 500 mg CHEW TAB PO SCH ×3 (08:43→20:53)
[2020-11-05] MEDS: Aspirin EC 81 mg TAB.EC (enteric coated) PO SCH (08:43)
[2020-11-05] MEDS: Multivitamins/Minerals TAB PO SCH (08:44)
[2020-11-05] MEDS: metroNIDAZOLE IV 500 MG/100ML 500 MG/100 ML BAG IVPB SCH ×2 (08:44→22:12)
[2020-11-05] MEDS: Enoxaparin 40 MG/0.4 ML SYR SUBCUT SCH (08:45)
[2020-11-05] MEDS: Insulin GLARGINE 100 un/ml 10 ml VIAL SUBCUT SCH (20:55)
[2020-11-06] MEDS: Vancomycin 1,250 MG in NS 0.9% 250 ml 250 ML IVPB SCH ×2 (05:00→12:43)
[2020-11-06] MEDS: Cefepime 2 GM in Dextrose 2 GM/50 ML BAG IV SCH ×2 (05:08→17:40)
[2020-11-06] MEDS: Aspirin EC 81 mg TAB.EC (enteric coated) PO SCH (09:14)
[2020-11-06] MEDS: Calcium Carb (TUMS) 500 mg CHEW TAB PO SCH ×3 (09:14→20:00)
[2020-11-06] MEDS: Multivitamins/Minerals TAB PO SCH (09:15)
[2020-11-06] MEDS: metroNIDAZOLE IV 500 MG/100ML 500 MG/100 ML BAG IVPB SCH ×2 (09:19→19:58)
[2020-11-06] MEDS: Enoxaparin 40 MG/0.4 ML SYR SUBCUT SCH (09:22)
[2020-11-06] MEDS ORDERED: Vancomycin Trough Check NOTE FOLLOW UP ONE (11:30)
[2020-11-06] MEDS: Insulin GLARGINE 100 un/ml 10 ml VIAL SUBCUT SCH (20:00)
[2020-11-07] MEDS: Cefepime 2 GM in Dextrose 2 GM/50 ML BAG IV SCH ×2 (05:28→17:14)
[2020-11-07] MEDS: Vancomycin 1000 MG in NS 0.9% 250 ML IVPB SCH ×3 (06:23→23:05)
[2020-11-07] MEDS: Enoxaparin 40 MG/0.4 ML SYR SUBCUT SCH (08:47)
[2020-11-07] MEDS: Aspirin EC 81 mg TAB.EC (enteric coated) PO SCH (08:48)
[2020-11-07] MEDS: metroNIDAZOLE IV 500 MG/100ML 500 MG/100 ML BAG IVPB SCH ×2 (08:48→21:14)
[2020-11-07] MEDS: Calcium Carb (TUMS) 500 mg CHEW TAB PO SCH ×3 (08:48→21:16)
[2020-11-07] MEDS: Multivitamins/Minerals TAB PO SCH (08:49)
[2020-11-07] MEDS: Insulin GLARGINE 100 un/ml 10 ml VIAL SUBCUT SCH (21:16)
[2020-11-08] MEDS: Cefepime 2 GM in Dextrose 2 GM/50 ML BAG IV SCH ×2 (04:24→18:14)
[2020-11-08] MEDS: Vancomycin 1000 MG in NS 0.9% 250 ML IVPB SCH ×3 (05:23→21:05)
[2020-11-08] MEDS: Enoxaparin 40 MG/0.4 ML SYR SUBCUT SCH (08:27)
[2020-11-08] MEDS: metroNIDAZOLE IV 500 MG/100ML 500 MG/100 ML BAG IVPB SCH (08:28)
[2020-11-08] MEDS: Aspirin EC 81 mg TAB.EC (enteric coated) PO SCH (08:31)
[2020-11-08] MEDS: Multivitamins/Minerals TAB PO SCH (08:32)
[2020-11-08] MEDS: Calcium Carb (TUMS) 500 mg CHEW TAB PO SCH ×3 (08:33→21:09)
[2020-11-08] MEDS ORDERED: Vancomycin Trough Check NOTE FOLLOW UP ONE (12:30)
[2020-11-08 13:05] LABS: EGFR African American 200.6 (>60); EGFR Non-African American 165.8 (>60)
[2020-11-08 13:37] LABS: Vancomycin Trough 14.4 mcg/mL
[2020-11-08] MEDS: Insulin GLARGINE 100 un/ml 10 ml VIAL SUBCUT SCH (21:11)
[2020-11-09] MEDS: Vancomycin 1000 MG in NS 0.9% 250 ML IVPB SCH ×2 (05:03→13:15)
[2020-11-09] MEDS: Aspirin EC 81 mg TAB.EC (enteric coated) PO SCH (08:30)
[2020-11-09] MEDS: Multivitamins/Minerals TAB PO SCH (08:32)
[2020-11-09] MEDS: Enoxaparin 40 MG/0.4 ML SYR SUBCUT SCH (08:32)
[2020-11-09] MEDS: Calcium Carb (TUMS) 500 mg CHEW TAB PO SCH ×3 (08:32→20:45)
[2020-11-09] MEDS: Insulin GLARGINE 100 un/ml 10 ml VIAL SUBCUT SCH (20:45)
[2020-11-10] MEDS: Aspirin EC 81 mg TAB.EC (enteric coated) PO SCH (08:37)
[2020-11-10] MEDS: Enoxaparin 40 MG/0.4 ML SYR SUBCUT SCH (08:38)
[2020-11-10] MEDS: Multivitamins/Minerals TAB PO SCH (08:40)
[2020-11-10] MEDS: Calcium Carb (TUMS) 500 mg CHEW TAB PO SCH ×3 (08:40→21:21)
[2020-11-10] MEDS ORDERED: Vancomycin Trough Check NOTE FOLLOW UP ONE (12:30)
[2020-11-10] MEDS: Insulin GLARGINE 100 un/ml 10 ml VIAL SUBCUT SCH (23:12)
[2020-11-11 06:27] LABS: ABS Basophils 0.1 10^3/ul (0-0.2); ABS Eosinophils 0.5 10^3/ul (0-0.6); ABS Lymphocytes 2.2 10^3/ul (1.0-4.8); ABS Monocytes 0.7 10^3/ul (0-0.8); ABS Neutrophils 6.6 10^3/ul (1.5-7.7); Eosinophil % 4.8 %; Hematocrit 35 % (42-52); Hemoglobin 11.3 g/dL (14.0-18.0); Lymphocyte % 21.6 %; Mean Corpuscular HGB Conc 32 g/dL (31-36); Mean Corpuscular Hemoglobin 28 pg (27-31); Mean Corpuscular Volume 89 fL (80-94); Platelet Count 616 10^3/uL (150-450); Red Blood Count 3.97 10^6 /uL (4.18-5.48); Red Cell Distribution Width 19 % (10-15)
[2020-11-11 06:34] LABS: INR 1.25 (0.82-1.09)
[2020-11-11 06:40] LABS: BUN/Creatinine Ratio 17.2 (8-20); Calcium 9.7 mg/dL (8.6-10.3); EGFR African American 154.4 (>60); EGFR Non-African American 127.6 (>60); Magnesium 1.8 mg/dL (1.9-2.7); Potassium 4.6 mmol/L (3.5-5.0)
[2020-11-11] MEDS: Multivitamins/Minerals TAB PO SCH (08:21)
[2020-11-11] MEDS: Calcium Carb (TUMS) 500 mg CHEW TAB PO SCH ×3 (08:21→22:10)
[2020-11-11] MEDS: Aspirin EC 81 mg TAB.EC (enteric coated) PO SCH (08:22)
[2020-11-11] MEDS: Enoxaparin 40 MG/0.4 ML SYR SUBCUT SCH (08:22)
[2020-11-11 14:08] LABS: Albumin 3.7 g/dL (3.2-5.2); C Reactive Protein 16.17 mg/L (<8.01); Globulin 3.8 g/dL (2-4); Indirect Bilirubin 0.3 mg/dL (0.3-1.0); Total Bilirubin 0.4 mg/dL (0.2-1.0); Total Protein 7.5 g/dL (6.4-8.9)
[2020-11-11] MEDS: Insulin GLARGINE 100 un/ml 10 ml VIAL SUBCUT SCH (22:10)
[2020-11-12 05:18] LABS: ABS Basophils 0.1 10^3/ul (0-0.2); ABS Eosinophils 0.6 10^3/ul (0-0.6); ABS Lymphocytes 2.5 10^3/ul (1.0-4.8); ABS Monocytes 0.7 10^3/ul (0-0.8); ABS Neutrophils 6.7 10^3/ul (1.5-7.7); Hematocrit 36 % (42-52); Hemoglobin 11.6 g/dL (14.0-18.0); Lymphocyte % 23.7 %; Mean Corpuscular HGB Conc 32 g/dL (31-36); Mean Corpuscular Hemoglobin 29 pg (27-31); Mean Corpuscular Volume 89 fL (80-94); Mean Platelet Volume 6.8 fL (7.4-10.4); Platelet Count 629 10^3/uL (150-450); Red Blood Count 4.07 10^6 /uL (4.18-5.48); Red Cell Distribution Width 19 % (10-15); White Blood Count 10.7 10^3/uL (3.5-10.8)
[2020-11-12 05:36] LABS: BUN/Creatinine Ratio 18.6 (8-20); C Reactive Protein 11.37 mg/L (<8.01); Calcium 9.9 mg/dL (8.6-10.3); EGFR African American 139.2 (>60); Potassium 4.8 mmol/L (3.5-5.0)
[2020-11-12] MEDS: Calcium Carb (TUMS) 500 mg CHEW TAB PO SCH ×3 (10:33→21:45)
[2020-11-12] MEDS: Multivitamins/Minerals TAB PO SCH (10:33)
[2020-11-12] MEDS: Aspirin EC 81 mg TAB.EC (enteric coated) PO SCH (10:35)
[2020-11-12] MEDS: Enoxaparin 40 MG/0.4 ML SYR SUBCUT SCH (10:36)
[2020-11-12] MEDS: Ondansetron ODT 4 mg TAB 4 MG TAB PO PRN ×2 (14:50→18:06)
[2020-11-12 19:02] LABS: Hematocrit 28 % (42-52); Hemoglobin 9.2 g/dL (14.0-18.0); Mean Corpuscular HGB Conc 33 g/dL (31-36); Mean Corpuscular Hemoglobin 30 pg (27-31); Mean Corpuscular Volume 90 fL (80-94); Mean Platelet Volume 7.3 fL (7.4-10.4); Platelet Count 653 10^3/uL (150-450); Red Blood Count 3.09 10^6 /uL (4.18-5.48); Red Cell Distribution Width 19 % (10-15); White Blood Count 23.7 10^3/uL (3.5-10.8)
[2020-11-12 19:08] LABS: INR 1.41 (0.82-1.09)
[2020-11-12 19:16] LABS: Calcium 8.5 mg/dL (8.6-10.3)
[2020-11-12 19:22] LABS: BUN/Creatinine Ratio 30.2 (8-20); EGFR African American 86.2 (>60); EGFR Non-African American 71.3 (>60)
[2020-11-12 19:25] LABS: Potassium 6.5 mmol/L (3.5-5.0)
[2020-11-12] MEDS: Pantoprazole 80 mg in NS BAG 80 MG/250 ML BAG IV SCH (20:56)
[2020-11-12] MEDS ORDERED: Piperacillin/Tazobac ADVAN 3.375 GM in NS 0.9% 100 ml BAG 100 ML IV ONE (21:17)
[2020-11-12 21:37] LABS: C Reactive Protein 8.88 mg/L (<8.01)
[2020-11-12] MEDS: Insulin GLARGINE 100 un/ml 10 ml VIAL SUBCUT SCH (21:46)
[2020-11-12] MEDS: Morphine 2 MG/ML SYRINGE IV PRN (21:51)
[2020-11-12] MEDS ORDERED: Zosyn per Pharmacy NOTE FOLLOW UP SCH (22:00)
[2020-11-12] MEDS ORDERED: Iodixanol (CONTRAST) 320 MG/ML 100 ML SDV IV ONE (22:40)
[2020-11-12] MEDS: NS 0.9% 1000 ml BAG 1,000 ML IV SCH (23:25)
[2020-11-13] MEDS: ZOSYN 3.375 GM Q8H per EXTENDED INFUSION IV SCH ×3 (01:53→17:37)
[2020-11-13] MEDS: Morphine 2 MG/ML SYRINGE IV PRN ×3 (03:46→21:34)
[2020-11-13 04:11] LABS: Hematocrit 24 % (42-52); Hemoglobin 7.5 g/dL (14.0-18.0); Mean Corpuscular HGB Conc 32 g/dL (31-36); Mean Corpuscular Hemoglobin 28 pg (27-31); Mean Corpuscular Volume 90 fL (80-94); Mean Platelet Volume 7.1 fL (7.4-10.4); Platelet Count 586 10^3/uL (150-450); Red Blood Count 2.65 10^6 /uL (4.18-5.48); Red Cell Distribution Width 19 % (10-15); White Blood Count 18.9 10^3/uL (3.5-10.8)
[2020-11-13 04:14] LABS: ABS Basophils 0.3 10^3/ul (0-0.2); ABS Eosinophils 0.5 10^3/ul (0-0.6); ABS Lymphocytes 4.8 10^3/ul (1.0-4.8); ABS Monocytes 1.4 10^3/ul (0-0.8); ABS Neutrophils 12.6 10^3/ul (1.5-7.7); Eosinophil % 2.4 %; Lymphocyte % 24.4 %
[2020-11-13 04:30] LABS: BUN/Creatinine Ratio 45.5 (8-20); Calcium 7.9 mg/dL (8.6-10.3); EGFR African American 93.3 (>60); EGFR Non-African American 77.1 (>60)
[2020-11-13 04:39] LABS: Potassium 5.2 mmol/L (3.5-5.0)
[2020-11-13] MEDS: Pantoprazole 80 mg in NS BAG 80 MG/250 ML BAG IV SCH (04:48)
[2020-11-13] MEDS: Calcium Carb (TUMS) 500 mg CHEW TAB PO SCH ×3 (07:10→23:44)
[2020-11-13] MEDS: Aspirin EC 81 mg TAB.EC (enteric coated) PO SCH (07:10)
[2020-11-13] MEDS: Multivitamins/Minerals TAB PO SCH (07:10)
[2020-11-13] MEDS: Enoxaparin 40 MG/0.4 ML SYR SUBCUT SCH (07:26)
[2020-11-13] MEDS: NS 0.9% 1000 ml BAG 1,000 ML IV SCH (11:54)
[2020-11-13] MEDS: Amoxicillin/Clavul 500/125 TAB (Augmentin 500 mg tab) PO SCH (20:58)
[2020-11-13] MEDS: Insulin GLARGINE 100 un/ml 10 ml VIAL SUBCUT SCH (21:01)
[2020-11-14 00:16] LABS: Hematocrit 26 % (42-52); Hemoglobin 8.4 g/dL (14.0-18.0)
[2020-11-14] MEDS: NS 0.9% 1000 ml BAG 1,000 ML IV SCH ×3 (02:55→23:11)
[2020-11-14] MEDS: Morphine 2 MG/ML SYRINGE IV PRN ×4 (03:41→20:47)
[2020-11-14 05:51] LABS: ABS Basophils 0.1 10^3/ul (0-0.2); ABS Eosinophils 0.5 10^3/ul (0-0.6); ABS Lymphocytes 2.2 10^3/ul (1.0-4.8); ABS Monocytes 0.6 10^3/ul (0-0.8); ABS Neutrophils 6.5 10^3/ul (1.5-7.7); Eosinophil % 4.9 %; Hematocrit 25 % (42-52); Hemoglobin 8.2 g/dL (14.0-18.0); Lymphocyte % 22.6 %; Mean Corpuscular HGB Conc 33 g/dL (31-36); Mean Corpuscular Hemoglobin 30 pg (27-31); Mean Corpuscular Volume 90 fL (80-94); Mean Platelet Volume 6.7 fL (7.4-10.4); Platelet Count 406 10^3/uL (150-450); Red Blood Count 2.73 10^6 /uL (4.18-5.48); Red Cell Distribution Width 19 % (10-15); White Blood Count 9.9 10^3/uL (3.5-10.8)
[2020-11-14 06:02] LABS: Albumin 3.2 g/dL (3.2-5.2); Calcium 8.2 mg/dL (8.6-10.3); Potassium 4.1 mmol/L (3.5-5.0); Total Bilirubin 0.5 mg/dL (0.2-1.0)
[2020-11-14 06:08] LABS: Albumin/Globulin Ratio 1.1 (1-3); C Reactive Protein 15.6 mg/L (<8.01); EGFR African American 154.4 (>60); EGFR Non-African American 127.6 (>60); Globulin 2.9 g/dL (2-4); Total Protein 6.1 g/dL (6.4-8.9)
[2020-11-14] MEDS: Calcium Carb (TUMS) 500 mg CHEW TAB PO SCH ×3 (09:11→20:53)
[2020-11-14] MEDS: Amoxicillin/Clavul 500/125 TAB (Augmentin 500 mg tab) PO SCH ×2 (09:11→20:51)
[2020-11-14] MEDS: Multivitamins/Minerals TAB PO SCH (09:12)
[2020-11-14] MEDS: Insulin GLARGINE 100 un/ml 10 ml VIAL SUBCUT SCH (21:26)
[2020-11-15] MEDS: Morphine 2 MG/ML SYRINGE IV PRN ×3 (02:38→14:04)
[2020-11-15] MEDS: NS 0.9% 1000 ml BAG 1,000 ML IV SCH (05:50)
[2020-11-15 06:23] LABS: BUN/Creatinine Ratio 9.2 (8-20); Calcium 9.3 mg/dL (8.6-10.3); EGFR African American 151.6 (>60); EGFR Non-African American 125.3 (>60)
[2020-11-15] MEDS: Multivitamins/Minerals TAB PO SCH (09:14)
[2020-11-15] MEDS: Calcium Carb (TUMS) 500 mg CHEW TAB PO SCH ×3 (09:17→20:26)
[2020-11-15] MEDS: Amoxicillin/Clavul 500/125 TAB (Augmentin 500 mg tab) PO SCH ×2 (09:18→20:26)
[2020-11-15] MEDS: Insulin GLARGINE 100 un/ml 10 ml VIAL SUBCUT SCH (20:28)
[2020-11-16 04:32] LABS: ABS Basophils 0.2 10^3/ul (0-0.2); ABS Eosinophils 0.4 10^3/ul (0-0.6); ABS Lymphocytes 2.3 10^3/ul (1.0-4.8); ABS Monocytes 0.5 10^3/ul (0-0.8); ABS Neutrophils 5.3 10^3/ul (1.5-7.7); Eosinophil % 4.2 %; Hematocrit 27 % (42-52); Hemoglobin 8.9 g/dL (14.0-18.0); Mean Corpuscular HGB Conc 33 g/dL (31-36); Mean Corpuscular Hemoglobin 30 pg (27-31); Mean Corpuscular Volume 91 fL (80-94); Mean Platelet Volume 7.1 fL (7.4-10.4); Platelet Count 463 10^3/uL (150-450); Red Cell Distribution Width 19 % (10-15); White Blood Count 8.7 10^3/uL (3.5-10.8)
[2020-11-16] MEDS: Multivitamins/Minerals TAB PO SCH (09:03)
[2020-11-16] MEDS: Amoxicillin/Clavul 500/125 TAB (Augmentin 500 mg tab) PO SCH (09:03)
[2020-11-16] MEDS: Calcium Carb (TUMS) 500 mg CHEW TAB PO SCH ×2 (09:05→12:56)
[2020-11-16 12:03] VITALS: BP 127/61
[2020-11-16] MEDS ORDERED: HYDROcodone/ACETAMIN 5/325 mg TAB PO PRN (14:00)
== END 2020-11-16 17:30 | disposition home health service (06) | DRG 871 ==
LOC: MED 15:30 → ICU 11-12 19:27 → MEDTELE 11-13 20:26
PROVIDERS: ADMIT Internal Medicine; ATTEND Internal Medicine

== ENCOUNTER 2020-12-04 10:24 | Inpatient (IN) ==
[2020-12-04 10:58] LABS: ABS Basophils 0.2 10^3/ul (0-0.2); ABS Eosinophils 0.3 10^3/ul (0-0.6); ABS Lymphocytes 2.2 10^3/ul (1.0-4.8); ABS Neutrophils 8.8 10^3/ul (1.5-7.7); Eosinophil % 2.6 %; Hematocrit 36 % (42-52); Hemoglobin 11.4 g/dL (14.0-18.0); Lymphocyte % 17.7 %; Mean Corpuscular HGB Conc 32 g/dL (31-36); Mean Corpuscular Hemoglobin 29 pg (27-31); Mean Corpuscular Volume 92 fL (80-94); Mean Platelet Volume 7.8 fL (7.4-10.4); Platelet Count 281 10^3/uL (150-450); Red Blood Count 3.93 10^6 /uL (4.18-5.48); Red Cell Distribution Width 18 % (10-15); White Blood Count 12.4 10^3/uL (3.5-10.8)
[2020-12-04 11:06] LABS: Activated Partial Thrombo Time 32.9 seconds (26.0-38.0); INR 1.18 (0.82-1.09)
[2020-12-04] MEDS: NS 0.9% 1000 ml BAG 2,000 ML IV ONE ×2 (11:07→12:12)
[2020-12-04 11:14] LABS: ALT 33 U/L (7-52); AST 34 U/L (13-39); Albumin 4.1 g/dL (3.2-5.2); Albumin/Globulin Ratio 1.2 (1-3); Alkaline Phosphatase 101 U/L (34-104); BUN/Creatinine Ratio 10.7 (8-20); Blood Urea Nitrogen 25 mg/dL (6-24); CO2 Carbon Dioxide 25 mmol/L (22-32); Calcium 8.9 mg/dL (8.6-10.3); Chloride 98 mmol/L (101-111); EGFR African American 34.7 (>60); EGFR Non-African American 28.7 (>60); Globulin 3.3 g/dL (2-4); Glucose 206 mg/dL (70-100); Magnesium 1.3 mg/dL (1.9-2.7); Sodium 136 mmol/L (135-145); Total Protein 7.4 g/dL (6.4-8.9)
[2020-12-04 11:18] LABS: BNP 66 pg/mL (<=100)
[2020-12-04 11:28] LABS: Alcohol, S < 10 mg/dL (<10)
[2020-12-04 11:39] LABS: Anion Gap 13 mmol/L (2-11); Potassium 5.3 mmol/L (3.5-5.0)
[2020-12-04] MEDS ORDERED: Piperacillin/Tazobac ADVAN 3.375 GM in NS 0.9% 100 ml BAG 100 ML IV ONE (11:41)
[2020-12-04 11:42] LABS: TSH Ultra Thyroid Stim Horm 6.56 mcIU/mL (0.34-5.60)
[2020-12-04] MEDS ORDERED: NS 0.9% 1000 ml BAG 1,000 ML IV ONE ×2 (12:14→13:32)
[2020-12-04] MEDS ORDERED: Piperacillin/Tazobac 3.375 GM BAG ONE (12:19)
[2020-12-04 12:37] LABS: C Reactive Protein 5.95 mg/L (<8.01)
[2020-12-04 12:55] LABS: Lipase 47 U/L (11.0-82.0)
[2020-12-04] MEDS ORDERED: Vancomycin 1,000 MG in NS 0.9% 250 ml 250 ML IVPB ONE (13:38)
[2020-12-04] MEDS ORDERED: Magnesium Sulfate 2 gm BAG 2 GM/50 ML BAG IVPB ONE (13:44)
[2020-12-04] MEDS ORDERED: Dextrose 50% Syringe 50 ml 25 GM/50 ML SYRINGE IV PUSH PRN (13:48)
[2020-12-04 13:53] LABS: Urine Appearance Clear; Urine Color Yellow; Urine Ketones Negative (Negative); Urine Protein Negative (Negative); Urine Specific Gravity 1.005 (1.010-1.030); Urine Urobilinogen Negative (Negative)
[2020-12-04 13:54] LABS: Urine Bilirubin Negative (Negative); Urine Blood Negative (Negative); Urine Glucose 1+(50 mg/dL) (Negative); Urine Nitrite Negative (Negative)
[2020-12-04 13:55] LABS: Free T4 0.72 ng/dL (0.61-1.12)
[2020-12-04 14:03] LABS: Urine Benzodiazepine Screen None Detected (None Detect); Urine Cannabinoids Screen None Detected (None Detect); Urine Opiates Screen None Detected (None Detect)
[2020-12-04] MEDS: Heparin 5000 UNITS/ML 1 mL VIAL SUBCUT SCH ×2 (14:56→21:10)
[2020-12-04] MEDS: NORMOSOL-R pH 7.4 1000 mL BAG 1,000 ML IV SCH ×2 (15:31→23:11)
[2020-12-04] MEDS ORDERED: Cefepime 2 GM in Dextrose 2 GM/50 ML BAG IV ONE (20:00)
[2020-12-04] MEDS: Insulin GLARGINE 100 un/ml 10 ml VIAL SUBCUT SCH (21:11)
[2020-12-05 05:15] LABS: ABS Basophils 0.1 10^3/ul (0-0.2); ABS Eosinophils 0.3 10^3/ul (0-0.6); ABS Lymphocytes 1.6 10^3/ul (1.0-4.8); ABS Monocytes 0.5 10^3/ul (0-0.8); ABS Neutrophils 5.8 10^3/ul (1.5-7.7); Eosinophil % 3.1 %; Hematocrit 33 % (42-52); Lymphocyte % 19.2 %; Mean Corpuscular HGB Conc 33 g/dL (31-36); Mean Corpuscular Hemoglobin 30 pg (27-31); Mean Corpuscular Volume 90 fL (80-94); Mean Platelet Volume 7.7 fL (7.4-10.4); Platelet Count 188 10^3/uL (150-450); Red Blood Count 3.69 10^6 /uL (4.18-5.48); Red Cell Distribution Width 18 % (10-15); White Blood Count 8.2 10^3/uL (3.5-10.8)
[2020-12-05 05:32] LABS: BUN/Creatinine Ratio 15.6 (8-20); Calcium 8.2 mg/dL (8.6-10.3); EGFR African American 96.7 (>60); EGFR Non-African American 79.9 (>60); Magnesium 1.8 mg/dL (1.9-2.7); Phosphorus 3.6 mg/dL (2.5-5.0); Potassium 4.2 mmol/L (3.5-5.0)
[2020-12-05] MEDS: Heparin 5000 UNITS/ML 1 mL VIAL SUBCUT SCH ×3 (06:09→21:43)
[2020-12-05] MEDS: Multivitamins/Minerals TAB PO SCH (08:21)
[2020-12-05] MEDS ORDERED: Cefepime 1 GM in Dextrose 1 GM/50 ML BAG IV SCH (20:00)
[2020-12-05] MEDS: Insulin GLARGINE 100 un/ml 10 ml VIAL SUBCUT SCH (21:43)
[2020-12-06] MEDS: Heparin 5000 UNITS/ML 1 mL VIAL SUBCUT SCH ×3 (05:44→20:55)
[2020-12-06 06:22] LABS: BUN/Creatinine Ratio 13.2 (8-20); Calcium 9.4 mg/dL (8.6-10.3); EGFR African American 102.8 (>60); Potassium 4.8 mmol/L (3.5-5.0)
[2020-12-06] MEDS: Multivitamins/Minerals TAB PO SCH (08:48)
[2020-12-06] MEDS: Insulin GLARGINE 100 un/ml 10 ml VIAL SUBCUT SCH (20:55)
[2020-12-07] MEDS: Heparin 5000 UNITS/ML 1 mL VIAL SUBCUT SCH (06:00)
[2020-12-07] MEDS: Multivitamins/Minerals TAB PO SCH (09:14)
[2020-12-07 10:23] VITALS: BP 119/75
== END 2020-12-07 11:38 | disposition home or self-care (01) | DRG 314 ==
LOC: ED 10:24 → ICU 10:33 → MEDTELE 12-05 13:18
PROVIDERS: ADMIT Hospitalist; ATTEND Student in an Organized Health Care Education/Training Program

== ENCOUNTER 2020-12-10 12:43 | Inpatient (IN) ==
[2020-12-10] MEDS ORDERED: NS 0.9% 1000 ml BAG 1,000 ML IV ONE ×2 (12:52→15:03)
[2020-12-10] MEDS ORDERED: NS 0.9% 1000 ml BAG 2,000 ML IV ONE (13:04)
[2020-12-10 13:10] LABS: ABS Basophils 0.1 10^3/ul (0-0.2); ABS Eosinophils 0.4 10^3/ul (0-0.6); ABS Lymphocytes 1.9 10^3/ul (1.0-4.8); ABS Monocytes 0.9 10^3/ul (0-0.8); ABS Neutrophils 6.8 10^3/ul (1.5-7.7); Hematocrit 33 % (42-52); Hemoglobin 10.9 g/dL (14.0-18.0); Lymphocyte % 18.3 %; Mean Corpuscular HGB Conc 33 g/dL (31-36); Mean Corpuscular Hemoglobin 30 pg (27-31); Mean Corpuscular Volume 90 fL (80-94); Mean Platelet Volume 7.7 fL (7.4-10.4); Platelet Count 228 10^3/uL (150-450); Red Blood Count 3.64 10^6 /uL (4.18-5.48); Red Cell Distribution Width 18 % (10-15); White Blood Count 10.1 10^3/uL (3.5-10.8)
[2020-12-10] MEDS ORDERED: Norepinephrine 16MCG/ML IVPRE 4,000 MCG/250 ML BAG IV ONE (13:17)
[2020-12-10 13:28] LABS: ALT 20 U/L (7-52); AST 16 U/L (13-39); Albumin 3.9 g/dL (3.2-5.2); Albumin/Globulin Ratio 1.1 (1-3); Alkaline Phosphatase 112 U/L (34-104); Anion Gap 14 mmol/L (2-11); BUN/Creatinine Ratio 11.5 (8-20); Blood Urea Nitrogen 51 mg/dL (6-24); CO2 Carbon Dioxide 22 mmol/L (22-32); Calcium 8.4 mg/dL (8.6-10.3); Chloride 96 mmol/L (101-111); EGFR African American 16.6 (>60); EGFR Non-African American 13.7 (>60); Globulin 3.6 g/dL (2-4); Glucose 250 mg/dL (70-100); Magnesium 2.2 mg/dL (1.9-2.7); Potassium 4.8 mmol/L (3.5-5.0); Sodium 132 mmol/L (135-145); Total Protein 7.5 g/dL (6.4-8.9)
[2020-12-10 13:30] LABS: Troponin I 0.02 ng/mL (<0.03)
[2020-12-10] MEDS ORDERED: Piperacillin/Tazobac ADVAN 3.375 GM in NS 0.9% 100 ml BAG 100 ML IVPB ONE (13:48)
[2020-12-10 13:52] LABS: Lipase 52 U/L (11.0-82.0)
[2020-12-10 13:58] LABS: Alcohol, S < 10 mg/dL (<10)
[2020-12-10 13:59] LABS: Activated Partial Thrombo Time 32.9 seconds (26.0-38.0); INR 1.09 (0.82-1.09)
[2020-12-10] MEDS ORDERED: Norepinephrine 16MCG/ML IVPRE 4,000 MCG/250 ML BAG IV SCH ×2 (14:00→15:28)
[2020-12-10 14:14] LABS: TSH Ultra Thyroid Stim Horm 2.48 mcIU/mL (0.34-5.60)
[2020-12-10] MEDS ORDERED: Dextrose 50% Syringe 50 ml 25 GM/50 ML SYRINGE IV PUSH PRN (15:34)
[2020-12-10] MEDS: Lactated Ringers 1000 ml BAG 1,000 ML IV SCH (17:07)
[2020-12-10 19:56] LABS: Urine Appearance Clear; Urine Bilirubin Negative (Negative); Urine Blood 1+ (Negative); Urine Color Straw; Urine Glucose 3+(>=500 mg/dL) (Negative); Urine Ketones Negative (Negative); Urine Nitrite Negative (Negative); Urine Protein Negative (Negative); Urine Specific Gravity 1.003 (1.010-1.030); Urine Urobilinogen Negative (Negative)
[2020-12-10 19:59] LABS: Urine Bacteria Absent (Absent); Urine Red Blood Cell Absent (Absent); Urine White Blood Cell Trace(0-5/hpf) (Absent)
[2020-12-10] MEDS: Heparin 5000 UNITS/ML 1 mL VIAL SUBCUT SCH (20:37)
[2020-12-10 23:23] LABS: Calcium 7.8 mg/dL (8.6-10.3); EGFR African American 25.2 (>60); EGFR Non-African American 20.8 (>60); Potassium 4.2 mmol/L (3.5-5.0)
[2020-12-11] MEDS: Lactated Ringers 1000 ml BAG 1,000 ML IV SCH ×4 (00:36→19:45)
[2020-12-11 04:35] LABS: Hematocrit 31 % (42-52); Mean Corpuscular HGB Conc 32 g/dL (31-36); Mean Corpuscular Hemoglobin 29 pg (27-31); Mean Corpuscular Volume 91 fL (80-94); Platelet Count 181 10^3/uL (150-450); Red Blood Count 3.41 10^6 /uL (4.18-5.48); Red Cell Distribution Width 18 % (10-15); White Blood Count 6.4 10^3/uL (3.5-10.8)
[2020-12-11 04:49] LABS: Calcium 8.2 mg/dL (8.6-10.3); EGFR African American 31.5 (>60); Phosphorus 4.8 mg/dL (2.5-5.0); Potassium 4.5 mmol/L (3.5-5.0)
[2020-12-11] MEDS: Multivitamins/Minerals TAB PO SCH (08:58)
[2020-12-11] MEDS: Heparin 5000 UNITS/ML 1 mL VIAL SUBCUT SCH ×2 (08:59→20:29)
[2020-12-11] MEDS ORDERED: Senna TAB 8.6 mg TAB PO PRN (14:24)
[2020-12-11] MEDS: Morphine 2 MG/ML SYRINGE IV PRN ×2 (14:44→19:04)
[2020-12-11] MEDS: Insulin GLARGINE 100 un/ml 10 ml VIAL SUBCUT SCH (21:00)
[2020-12-12] MEDS: Morphine 2 MG/ML SYRINGE IV PRN ×2 (01:46→16:09)
[2020-12-12] MEDS: Lactated Ringers 1000 ml BAG 1,000 ML IV SCH (06:27)
[2020-12-12 07:56] LABS: BUN/Creatinine Ratio 16.8 (8-20); Calcium 9.3 mg/dL (8.6-10.3); EGFR African American 71.3 (>60); EGFR Non-African American 58.9 (>60); Potassium 4.5 mmol/L (3.5-5.0)
[2020-12-12 08:11] LABS: ABS Basophils 0.1 10^3/ul (0-0.2); ABS Eosinophils 0.2 10^3/ul (0-0.6); ABS Monocytes 0.4 10^3/ul (0-0.8); ABS Neutrophils 3.5 10^3/ul (1.5-7.7); Eosinophil % 3.8 %; Hematocrit 34 % (42-52); Hemoglobin 11.1 g/dL (14.0-18.0); Lymphocyte % 32.1 %; Mean Corpuscular HGB Conc 33 g/dL (31-36); Mean Corpuscular Hemoglobin 30 pg (27-31); Mean Corpuscular Volume 90 fL (80-94); Platelet Count 192 10^3/uL (150-450); Red Blood Count 3.72 10^6 /uL (4.18-5.48); Red Cell Distribution Width 18 % (10-15); White Blood Count 6.4 10^3/uL (3.5-10.8)
[2020-12-12] MEDS: Multivitamins/Minerals TAB PO SCH (09:11)
[2020-12-12] MEDS: Heparin 5000 UNITS/ML 1 mL VIAL SUBCUT SCH ×2 (09:12→20:22)
[2020-12-12] MEDS: Insulin GLARGINE 100 un/ml 10 ml VIAL SUBCUT SCH (20:23)
[2020-12-13] MEDS: Multivitamins/Minerals TAB PO SCH (09:41)
[2020-12-13] MEDS: Heparin 5000 UNITS/ML 1 mL VIAL SUBCUT SCH ×2 (09:43→21:07)
[2020-12-13 11:34] LABS: ABS Basophils 0.1 10^3/ul (0-0.2); ABS Eosinophils 0.2 10^3/ul (0-0.6); ABS Lymphocytes 1.4 10^3/ul (1.0-4.8); ABS Monocytes 0.4 10^3/ul (0-0.8); ABS Neutrophils 4.1 10^3/ul (1.5-7.7); Eosinophil % 3.6 %; Hematocrit 36 % (42-52); Hemoglobin 11.7 g/dL (14.0-18.0); Lymphocyte % 22.7 %; Mean Corpuscular HGB Conc 33 g/dL (31-36); Mean Corpuscular Hemoglobin 30 pg (27-31); Mean Corpuscular Volume 91 fL (80-94); Mean Platelet Volume 7.7 fL (7.4-10.4); Platelet Count 229 10^3/uL (150-450); Red Blood Count 3.95 10^6 /uL (4.18-5.48); Red Cell Distribution Width 17 % (10-15); White Blood Count 6.1 10^3/uL (3.5-10.8)
[2020-12-13 11:51] LABS: BUN/Creatinine Ratio 13.8 (8-20); Calcium 9.6 mg/dL (8.6-10.3); EGFR African American 83.5 (>60); Potassium 4.4 mmol/L (3.5-5.0)
[2020-12-13] MEDS: Insulin GLARGINE 100 un/ml 10 ml VIAL SUBCUT SCH (21:08)
[2020-12-14] MEDS: Multivitamins/Minerals TAB PO SCH (08:10)
[2020-12-14] MEDS: Heparin 5000 UNITS/ML 1 mL VIAL SUBCUT SCH ×2 (08:11→21:05)
[2020-12-14] MEDS: Morphine 2 MG/ML SYRINGE IV PRN ×2 (12:24→21:04)
[2020-12-14] MEDS: Insulin GLARGINE 100 un/ml 10 ml VIAL SUBCUT SCH (20:51)
[2020-12-15] MEDS: Morphine 2 MG/ML SYRINGE IV PRN ×3 (02:07→11:17)
[2020-12-15] MEDS: Multivitamins/Minerals TAB PO SCH (08:24)
[2020-12-15] MEDS: Heparin 5000 UNITS/ML 1 mL VIAL SUBCUT SCH (08:25)
[2020-12-15 10:41] LABS: ABS Eosinophils 0.4 10^3/ul (0-0.6); ABS Lymphocytes 1.9 10^3/ul (1.0-4.8); ABS Monocytes 0.4 10^3/ul (0-0.8); ABS Neutrophils 4.6 10^3/ul (1.5-7.7); Eosinophil % 5.2 %; Hematocrit 38 % (42-52); Hemoglobin 12.2 g/dL (14.0-18.0); Lymphocyte % 26.5 %; Mean Corpuscular HGB Conc 33 g/dL (31-36); Mean Corpuscular Hemoglobin 30 pg (27-31); Mean Corpuscular Volume 91 fL (80-94); Mean Platelet Volume 7.4 fL (7.4-10.4); Nucleated Red Blood Cells % 0.1; Platelet Count 259 10^3/uL (150-450); Red Blood Count 4.12 10^6 /uL (4.18-5.48); Red Cell Distribution Width 18 % (10-15); White Blood Count 7.3 10^3/uL (3.5-10.8)
[2020-12-15 11:03] LABS: Albumin 4.4 g/dL (3.2-5.2); Albumin/Globulin Ratio 1.2 (1-3); BUN/Creatinine Ratio 17.9 (8-20); Calcium 9.5 mg/dL (8.6-10.3); EGFR African American 76.9 (>60); EGFR Non-African American 63.6 (>60); Globulin 3.6 g/dL (2-4); Potassium 4.4 mmol/L (3.5-5.0); Total Bilirubin 0.4 mg/dL (0.2-1.0)
[2020-12-15 12:55] VITALS: BP 115/63
== END 2020-12-15 14:37 | DRG 315 ==
LOC: ED 12:43 → ICU 15:51 → MEDTELE 12-12 10:24
PROVIDERS: ADMIT Internal Medicine Critical Care Medicine; ATTEND Internal Medicine

== ENCOUNTER 2022-12-29 08:17 | Inpatient (IN) ==
[2022-12-29] MEDS ORDERED: Ondansetron 4 mg VIAL 2 MG/ML 2 ml VIAL IV ONE (08:31)
[2022-12-29] MEDS ORDERED: Lactated Ringers 1000 ml BAG 1,000 ML IV ONE ×2 (08:31→10:15)
[2022-12-29 09:15] LABS: ABS Lymphocytes 0.4 10^3/ul (1.0-4.8); ABS Monocytes 1.3 10^3/ul (0-0.8); ABS Neutrophils 6.9 10^3/ul (1.5-7.7); Hematocrit 44 % (42-52); Hemoglobin 14.6 g/dL (14.0-18.0); Lymphocyte % 4.5 %; Mean Corpuscular Hemoglobin 31 pg (27-31); Mean Corpuscular Hgb Conc 33 g/dL (31-36); Mean Corpuscular Volume 93 fL (80-94); Mean Platelet Volume 7.2 fL (7.4-10.4); Nucleated Red Blood Cells % 0.3; Platelet Count 194 10^3/uL (150-450); Red Blood Count 4.75 10^6 /uL (4.18-5.48); Red Cell Distribution Width 19 % (10-15); White Blood Count 8.7 10^3/uL (3.5-10.8)
[2022-12-29 09:38] LABS: High Sens Troponin Baseline 39 pg/mL (<20)
[2022-12-29 10:12] LABS: ALT 46 U/L (7-52); AST 45 U/L (13-39); Albumin 4.7 g/dL (3.2-5.2); Albumin/Globulin Ratio 1.3 (1-3); Alcohol, S < 13 mg/dL (<13); Alkaline Phosphatase 119 U/L (35-149); Blood Urea Nitrogen 19 mg/dL (6-24); Calcium 8.9 mg/dL (8.6-10.3); Chloride 90 mmol/L (101-111); Creatinine, Serum 1.99 mg/dL (0.67-1.17); Globulin 3.5 g/dL (2-4); Glucose 324 mg/dL (70-100); Magnesium 2.6 mg/dL (1.9-2.7); Potassium 3.5 mmol/L (3.5-5.0); Sodium 140 mmol/L (135-145); Total Protein 8.2 g/dL (6.4-8.9); eGFR CKD-EPI 37.3 (>60)
[2022-12-29 10:37] LABS: High Sensitivity Troponin 1 Hr 42 pg/mL (<20)
[2022-12-29] MEDS ORDERED: Prochlorperazine 5 mg/ml 2 ml VIAL (10 mg) IV ONE (11:10)
[2022-12-29 11:36] LABS: CO2 Carbon Dioxide < 7 mmol/L (22-32)
[2022-12-29 13:05] LABS: Calcium 8.2 mg/dL (8.6-10.3); Creatinine, Serum 1.55 mg/dL (0.67-1.17); Potassium 3.3 mmol/L (3.5-5.0); eGFR CKD-EPI 50.3 (>60)
[2022-12-29 13:31] LABS: Urine Appearance Cloudy; Urine Bilirubin Negative (Negative); Urine Blood 2+ (Negative); Urine Color Yellow; Urine Glucose 3+(>=500 mg/dL) (Negative); Urine Ketones 2+ (Negative); Urine Nitrite Negative (Negative); Urine Protein 3+(>=500 mg/dL) (Negative); Urine Specific Gravity 1.015 (1.002-1.030); Urine Urobilinogen Negative (Negative)
[2022-12-29 14:00] LABS: PO2 Arterial 92 mmHg (80-100)
[2022-12-29 14:05] LABS: Urine Bacteria 1+ (Absent); Urine Red Blood Cell Trace(0-2/hpf) (Absent); Urine Squamous Epithelial Cell Present (Absent); Urine White Blood Cell Trace(0-5/hpf) (Absent)
[2022-12-29 14:13] LABS: PCO2 Arterial <20 mmHg (35-45)
[2022-12-29] MEDS ORDERED: Dextrose 50% Syringe 50 ml 25 GM/50 ML SYRINGE IV PUSH PRN (14:22)
[2022-12-29] MEDS ORDERED: Insulin Infusion 100unit/100mL 100 UNIT/100 ML BAG IV ONE (14:22)
[2022-12-29] MEDS: KCL 20 MEQ/100 ML IVPREMIX 20 MEQ/100 ML BAG IV SCH ×4 (15:23→22:23)
[2022-12-29 15:32] LABS: Phosphorus 4.8 mg/dL (2.5-5.0)
[2022-12-29] MEDS ORDERED: D5LR 20 MEQ KCL 1000 ml BAG 1,000 ML IV SCH (16:00)
[2022-12-29] MEDS ORDERED: Dextrose 50% Syringe 50 ml 25 GM/50 ML SYRINGE IV PUSH ONE (16:53)
[2022-12-29] MEDS ORDERED: Insulin GLARGINE 100 un/ml 10 ml VIAL SUBCUT ONE (17:05)
[2022-12-29] MEDS ORDERED: Lidocaine PATCH 4% 1 EA TOPICAL PRN (17:42)
[2022-12-29 18:44] LABS: Blood Urea Nitrogen 19 mg/dL (6-24); Calcium 8.1 mg/dL (8.6-10.3); Chloride 97 mmol/L (101-111); Creatinine, Serum 1.51 mg/dL (0.67-1.17); Glucose 272 mg/dL (70-100); Sodium 140 mmol/L (135-145); eGFR CKD-EPI 51.9 (>60)
[2022-12-29] MEDS ORDERED: Lidocaine PATCH 5% PATCH TRANSDERM PRN (18:45)
[2022-12-29 18:47] LABS: CO2 Carbon Dioxide < 7 mmol/L (22-32)
[2022-12-29 19:23] LABS: Urine Appearance Cloudy; Urine Bilirubin Negative (Negative); Urine Blood 2+ (Negative); Urine Color Yellow; Urine Glucose 3+(>=500 mg/dL) (Negative); Urine Ketones 2+ (Negative); Urine Nitrite Negative (Negative); Urine Protein 2+(100 mg/dL) (Negative); Urine Specific Gravity 1.015 (1.002-1.030); Urine Urobilinogen Negative (Negative)
[2022-12-29 19:28] LABS: Urine Bacteria 1+ (Absent); Urine Red Blood Cell Trace(0-2/hpf) (Absent); Urine Squamous Epithelial Cell Present (Absent); Urine White Blood Cell Trace(0-5/hpf) (Absent)
[2022-12-29] MEDS: Lactulose 30 ml UDC NG TUBE SCH (21:19)
[2022-12-29] MEDS: Pantoprazole VIAL 40 MG VIAL IV SCH (22:15)
[2022-12-29] MEDS: Heparin 5000 UNITS/ML 1 mL VIAL SUBCUT SCH (22:17)
[2022-12-29 23:32] LABS: Creatinine, Serum 1.33 mg/dL (0.67-1.17); Potassium 3.9 mmol/L (3.5-5.0); eGFR CKD-EPI 60.4 (>60)
[2022-12-30] MEDS: KCL 20 MEQ/100 ML IVPREMIX 20 MEQ/100 ML BAG IV SCH ×4 (01:42→09:49)
[2022-12-30] MEDS ORDERED: D5LR 20 MEQ KCL 1000 ml BAG 1,000 ML IV SCH (02:00)
[2022-12-30 02:58] LABS: Calcium 8.2 mg/dL (8.6-10.3); Creatinine, Serum 1.37 mg/dL (0.67-1.17); Potassium 3.7 mmol/L (3.5-5.0); eGFR CKD-EPI 58.3 (>60)
[2022-12-30] MEDS ORDERED: Insulin Infusion 100unit/100mL 100 UNIT/100 ML BAG IV SCH (03:30)
[2022-12-30] MEDS: Lactulose 30 ml UDC NG TUBE SCH (04:02)
[2022-12-30] MEDS: Heparin 5000 UNITS/ML 1 mL VIAL SUBCUT SCH ×3 (05:55→21:21)
[2022-12-30 06:17] LABS: ABS Lymphocytes 0.2 10^3/ul (1.0-4.8); ABS Monocytes 0.8 10^3/ul (0-0.8); ABS Neutrophils 6.6 10^3/ul (1.5-7.7); Eosinophil % 0.1 %; Hematocrit 37 % (42-52); Hemoglobin 12.2 g/dL (14.0-18.0); Lymphocyte % 2.8 %; Mean Corpuscular Hemoglobin 30 pg (27-31); Mean Corpuscular Hgb Conc 33 g/dL (31-36); Mean Corpuscular Volume 91 fL (80-94); Mean Platelet Volume 6.9 fL (7.4-10.4); Nucleated Red Blood Cells % 0.1; Platelet Count 135 10^3/uL (150-450); Red Blood Count 4.07 10^6 /uL (4.18-5.48); Red Cell Distribution Width 19 % (10-15); White Blood Count 7.6 10^3/uL (3.5-10.8)
[2022-12-30 06:48] LABS: Blood Urea Nitrogen 14 mg/dL (6-24); Chloride 111 mmol/L (101-111); Creatinine, Serum 1.22 mg/dL (0.67-1.17); Glucose 238 mg/dL (70-100); Magnesium 2.4 mg/dL (1.9-2.7); Potassium 3.4 mmol/L (3.5-5.0); Sodium 145 mmol/L (135-145)
[2022-12-30] MEDS ORDERED: LR IVPB SCH (07:00)
[2022-12-30] MEDS ORDERED: KCL IVPB SCH (07:00)
[2022-12-30 07:37] LABS: Anion Gap 21 mmol/L (2-11); CO2 Carbon Dioxide 13 mmol/L (22-32); Phosphorus < 1.0 mg/dL (2.5-5.0)
[2022-12-30] MEDS ORDERED: Nicotine GUM 2MG FRUIT FLAVOR PO PRN (07:41)
[2022-12-30] MEDS: D5LR 1000 ml BAG 1,000 ML IV SCH ×3 (07:41→18:25)
[2022-12-30] MEDS: Pantoprazole VIAL 40 MG VIAL IV SCH ×2 (08:19→21:21)
[2022-12-30] MEDS ORDERED: SODIUM PHOSPHATE IV ONE (09:00)
[2022-12-30] MEDS ORDERED: NS 0.9% IV ONE (09:00)
[2022-12-30] MEDS: Metoprolol Tartrate 5 mg VIAL 5 ml VIAL (1 mg/ml) IV SCH ×2 (09:25→21:21)
[2022-12-30] MEDS ORDERED: Potassium Phosphate IV 15 MMOL in NS 0.9% 250 ml 250 ML IVPB ONE (10:19)
[2022-12-30] MEDS: Thiamine 100 MG/ML 2 ml VIAL 100 MG in NS 0.9% 50 ML 50 ML IV SCH (11:54)
[2022-12-30 12:13] LABS: Calcium 8.3 mg/dL (8.6-10.3); Creatinine, Serum 1.07 mg/dL (0.67-1.17); Potassium 3.8 mmol/L (3.5-5.0); eGFR CKD-EPI 78.5 (>60)
[2022-12-30] MEDS ORDERED: Ondansetron 4 mg VIAL 2 MG/ML 2 ml VIAL IV PRN ×2 (12:16→12:33)
[2022-12-30 13:26] LABS: Urine Benzodiazepine Screen None Detected (None Detect); Urine Cannabinoids Screen None Detected (None Detect); Urine Opiates Screen None Detected (None Detect)
[2022-12-30] MEDS: Lactulose 30 ml UDC PO SCH ×2 (15:21→22:38)
[2022-12-30 15:31] LABS: Calcium 7.8 mg/dL (8.6-10.3); Creatinine, Serum 0.96 mg/dL (0.67-1.17); Magnesium 2.3 mg/dL (1.9-2.7); Phosphorus 1.1 mg/dL (2.5-5.0); Potassium 3.6 mmol/L (3.5-5.0); eGFR CKD-EPI 89.4 (>60)
[2022-12-30 18:28] LABS: Calcium 7.7 mg/dL (8.6-10.3); Creatinine, Serum 0.92 mg/dL (0.67-1.17); Potassium 3.3 mmol/L (3.5-5.0); eGFR CKD-EPI 94.1 (>60)
[2022-12-30] MEDS ORDERED: Potassium Phosphate IV 10 MMOL in NS 0.9% 250 ml 250 ML IVPB ONE (18:30)
[2022-12-30] MEDS ORDERED: KCL 20 MEQ/100 ML IVPREMIX 20 MEQ/100 ML BAG IV ONE (19:17)
[2022-12-30] MEDS: Ondansetron 4 mg VIAL 2 MG/ML 2 ml VIAL IV PRN (19:24)
[2022-12-30] MEDS: Lidocaine PATCH 5% PATCH TRANSDERM SCH (19:43)
[2022-12-30] MEDS ORDERED: Insulin GLARGINE 100 un/ml 10 ml VIAL SUBCUT SCH (21:00)
[2022-12-30 22:46] LABS: Calcium 7.9 mg/dL (8.6-10.3); Creatinine, Serum 0.82 mg/dL (0.67-1.17); Potassium 3.2 mmol/L (3.5-5.0); eGFR CKD-EPI 99.3 (>60)
[2022-12-30] MEDS ORDERED: Dextrose 50% Syringe 50 ml 25 GM/50 ML SYRINGE IV PUSH PRN (23:05)
[2022-12-30] MEDS ORDERED: Lactated Ringers 1000 ml BAG 1,000 ML IV SCH (23:45)
[2022-12-31] MEDS ORDERED: Potassium Chlor 20 meq TAB.ER PO ONE (00:09)
[2022-12-31] MEDS: KCL 20 MEQ/100 ML IVPREMIX 20 MEQ/100 ML BAG IV SCH ×2 (00:43→04:23)
[2022-12-31 04:50] LABS: ABS Lymphocytes 0.3 10^3/ul (1.0-4.8); ABS Monocytes 0.3 10^3/ul (0-0.8); ABS Neutrophils 3.7 10^3/ul (1.5-7.7); Eosinophil % 0.8 %; Hematocrit 39 % (42-52); Hemoglobin 12.5 g/dL (14.0-18.0); Lymphocyte % 6.5 %; Mean Corpuscular Hemoglobin 29 pg (27-31); Mean Corpuscular Hgb Conc 32 g/dL (31-36); Mean Corpuscular Volume 90 fL (80-94); Mean Platelet Volume 7.4 fL (7.4-10.4); Nucleated Red Blood Cells % 0.2; Platelet Count 114 10^3/uL (150-450); Red Blood Count 4.31 10^6 /uL (4.18-5.48); Red Cell Distribution Width 19 % (10-15); White Blood Count 4.3 10^3/uL (3.5-10.8)
[2022-12-31 05:06] LABS: Albumin 3.3 g/dL (3.2-5.2); Albumin/Globulin Ratio 1.1 (1-3); Calcium 7.7 mg/dL (8.6-10.3); Creatinine, Serum 0.78 mg/dL (0.67-1.17); Globulin 2.9 g/dL (2-4); Magnesium 1.9 mg/dL (1.9-2.7); Total Bilirubin 0.8 mg/dL (0.2-1.0); Total Protein 6.2 g/dL (6.4-8.9); eGFR CKD-EPI 100.8 (>60)
[2022-12-31 05:11] LABS: Potassium 3.7 mmol/L (3.5-5.0)
[2022-12-31 05:12] LABS: Phosphorus 1.2 mg/dL (2.5-5.0)
[2022-12-31] MEDS: Heparin 5000 UNITS/ML 1 mL VIAL SUBCUT SCH ×2 (05:18→14:57)
[2022-12-31] MEDS ORDERED: Dextrose 50% Syringe 50 ml 25 GM/50 ML SYRINGE IV PUSH PRN (05:26)
[2022-12-31] MEDS ORDERED: Potassium Phosphate IV 15 MMOL in NS 0.9% 250 ml 250 ML IVPB ONE (05:29)
[2022-12-31] MEDS ORDERED: Lactulose 30 ml UDC PO SCH (09:00)
[2022-12-31] MEDS: Thiamine 100 MG/ML 2 ml VIAL 100 MG in NS 0.9% 50 ML 50 ML IV SCH (10:33)
[2022-12-31] MEDS: Pantoprazole VIAL 40 MG VIAL IV SCH ×2 (10:33→19:57)
[2022-12-31] MEDS: Metoprolol Tartrate 5 mg VIAL 5 ml VIAL (1 mg/ml) IV SCH ×2 (10:33→19:57)
[2022-12-31] MEDS: Lidocaine PATCH 5% PATCH TRANSDERM SCH (10:34)
[2022-12-31] MEDS ORDERED: Magnesium Sulfate 2 gm BAG 2 GM/50 ML BAG IVPB ONE (11:13)
[2022-12-31] MEDS ORDERED: Iodixanol (CONTRAST) 320 MG/ML 100 ML SDV IV ONE (11:41)
[2022-12-31 12:42] LABS: Calcium 8.3 mg/dL (8.6-10.3); Creatinine, Serum 0.77 mg/dL (0.67-1.17); Potassium 3.3 mmol/L (3.5-5.0); eGFR CKD-EPI 101.2 (>60)
[2022-12-31] MEDS ORDERED: Insulin Infusion 100unit/100mL 100 UNIT/100 ML BAG IV SCH (13:00)
[2022-12-31] MEDS ORDERED: LACTATED RINGERS IV SCH ×2 (13:05→13:14)
[2022-12-31] MEDS ORDERED: POTASSIUM CHLORIDE IV SCH ×2 (13:05→13:14)
[2022-12-31] MEDS ORDERED: Lactated Ringers 1000 ml BAG 1,000 ML IV SCH (14:00)
[2022-12-31] MEDS: Thiamine 100 MG/ML 2 ml VIAL 500 MG in NS 0.9% 250 ml 250 ML IV SCH ×2 (14:57→23:48)
[2022-12-31] MEDS ORDERED: Potassium Chloride IV 40 MEQ in Lactated Ringers 1000 ml BAG 1,000 ML IV SCH (15:00)
[2022-12-31 17:00] LABS: Calcium 7.8 mg/dL (8.6-10.3); Creatinine, Serum 0.75 mg/dL (0.67-1.17); Potassium 3.2 mmol/L (3.5-5.0)
[2022-12-31] MEDS ORDERED: D5LR 20 MEQ KCL 1000 ml BAG 1,000 ML IV SCH (17:00)
[2022-12-31] MEDS: Ondansetron 4 mg VIAL 2 MG/ML 2 ml VIAL IV PRN (17:50)
[2022-12-31] MEDS: Nicotine PATCH 7 MG/24 HR PATCH TRANSDERM SCH (18:43)
[2022-12-31] MEDS: Lidocaine 2% JELLY 6 ML Topical TOPICAL SCH (19:57)
[2022-12-31] MEDS ORDERED: Haloperidol 5 mg/ml SDV IV/IM 5 MG/ML AMP ONE (20:01)
[2022-12-31] MEDS ORDERED: Haloperidol 5 mg/ml SDV IV/IM 5 MG/ML AMP IV SLOW PU ONE (20:01)
[2022-12-31 20:44] LABS: Calcium 7.9 mg/dL (8.6-10.3); Creatinine, Serum 0.71 mg/dL (0.67-1.17); Potassium 3.4 mmol/L (3.5-5.0); eGFR CKD-EPI 103.7 (>60)
[2022-12-31] MEDS ORDERED: Insulin GLARGINE 100 un/ml 10 ml VIAL SUBCUT SCH ×2 (21:00)
[2022-12-31] MEDS ORDERED: Dexmedetomidine 1,000 MCG in NS 0.9% 250 ml 240 ML IV SCH (23:45)
[2022-12-31] MEDS: D5W 20 MEQ KCL 1000 ml BAG 1,000 ML IV SCH (23:47)
[2022-12-31 23:56] LABS: Calcium 7.6 mg/dL (8.6-10.3); Creatinine, Serum 0.63 mg/dL (0.67-1.17); eGFR CKD-EPI 107.5 (>60)
[2023-01-01] MEDS: Heparin 5000 UNITS/ML 1 mL VIAL SUBCUT SCH ×4 (00:08→22:41)
[2023-01-01] MEDS: KCL 20 MEQ/100 ML IVPREMIX 20 MEQ/100 ML BAG IV SCH ×2 (01:32→03:42)
[2023-01-01 03:25] LABS: Calcium 7.3 mg/dL (8.6-10.3); Creatinine, Serum 0.61 mg/dL (0.67-1.17); Potassium 3.4 mmol/L (3.5-5.0); eGFR CKD-EPI 108.6 (>60)
[2023-01-01] MEDS ORDERED: Insulin GLARGINE 100 un/ml 10 ml VIAL SUBCUT ONE (03:29)
[2023-01-01] MEDS ORDERED: Dextrose 50% Syringe 50 ml 25 GM/50 ML SYRINGE IV PUSH PRN ×2 (03:30→10:48)
[2023-01-01] MEDS: Thiamine 100 MG/ML 2 ml VIAL 500 MG in NS 0.9% 250 ml 250 ML IV SCH ×3 (05:55→23:11)
[2023-01-01 06:20] LABS: Hematocrit 34.1 % (38-53); Hemoglobin 11.4 g/dL (13.2-16.3); Mean Corpuscular Hemoglobin 29.5 pg (27-33); Mean Corpuscular Hgb Conc 33.2 g/dL (31-36); Mean Corpuscular Volume 88.9 fL (80-97); Mean Platelet Volume 7.4 fL (7.5-11.2); Platelet Count 110 10^3/uL (150-450); Red Blood Count 3.84 10^6/uL (4.06-5.63); Red Cell Distribution Width 19.5 % (12-17); White Blood Count 6.1 10^3/uL (3.6-10.2)
[2023-01-01 06:57] LABS: Albumin 2.9 g/dL (3.2-5.2); Magnesium 2.1 mg/dL (1.9-2.7)
[2023-01-01 07:03] LABS: Albumin/Globulin Ratio 1.1 (1-3); Globulin 2.6 g/dL (2-4); Phosphorus 1.2 mg/dL (2.5-5.0); Total Protein 5.5 g/dL (6.4-8.9)
[2023-01-01 07:15] LABS: Creatinine, Serum 0.56 mg/dL (0.67-1.17); Potassium 3.8 mmol/L (3.5-5.0); Total Bilirubin 0.7 mg/dL (0.2-1.0); eGFR CKD-EPI 111.4 (>60)
[2023-01-01 07:37] LABS: Anisocytosis 1+
[2023-01-01 07:42] LABS: ABS Eosinophils 0.1 10^3/uL (0.0-0.5); ABS Lymphocytes 0.8 10^3/uL (1.0-4.8); ABS Monocytes 0.6 10^3/uL (0.0-1.1); ABS Neutrophils 4.5 10^3/uL (1.5-7.6); ABS Nucleated RBC 0.01 10^3/ul; Eosinophil % 1.3 %; Lymphocyte % 13.7 %; Nucleated Red Blood Cells % 0.2 /100 WBC (0.0-0.4)
[2023-01-01] MEDS: D5W 20 MEQ KCL 1000 ml BAG 1,000 ML IV SCH (08:08)
[2023-01-01] MEDS ORDERED: Potassium Phosphate IV 15 MMOL in NS 0.9% 250 ml 250 ML IVPB ONE (08:30)
[2023-01-01 09:06] LABS: Calcium 7.2 mg/dL (8.6-10.3)
[2023-01-01] MEDS: Lidocaine 2% JELLY 6 ML Topical TOPICAL SCH ×2 (10:02→22:47)
[2023-01-01] MEDS: Pantoprazole VIAL 40 MG VIAL IV SCH ×2 (10:02→22:39)
[2023-01-01] MEDS: Metoprolol Tartrate 5 mg VIAL 5 ml VIAL (1 mg/ml) IV SCH ×2 (10:02→22:34)
[2023-01-01] MEDS: Lidocaine PATCH 5% PATCH TRANSDERM SCH (10:32)
[2023-01-01] MEDS ORDERED: CALCIUM GLUCONATE 1GM/50ML NS 1 GM/50 ML BAG IV ONE (10:46)
[2023-01-01] MEDS: Nicotine PATCH 7 MG/24 HR PATCH TRANSDERM SCH (11:07)
[2023-01-01 15:48] LABS: Calcium 7.2 mg/dL (8.6-10.3); Potassium 3.4 mmol/L (3.5-5.0)
[2023-01-01 15:53] LABS: Creatinine, Serum 0.63 mg/dL (0.67-1.17); eGFR CKD-EPI 107.5 (>60)
[2023-01-01] MEDS ORDERED: Potassium EFFERVES 25 meq TAB PO ONE (18:49)
[2023-01-01] MEDS: Insulin GLARGINE 100 un/ml 10 ml VIAL SUBCUT SCH (23:04)
[2023-01-02] MEDS: Thiamine 100 MG/ML 2 ml VIAL 500 MG in NS 0.9% 250 ml 250 ML IV SCH ×3 (05:50→22:59)
[2023-01-02] MEDS: Heparin 5000 UNITS/ML 1 mL VIAL SUBCUT SCH ×3 (05:50→21:08)
[2023-01-02 06:38] LABS: Hemoglobin 12.6 g/dL (13.2-16.3); Mean Corpuscular Hemoglobin 29.5 pg (27-33); Mean Corpuscular Hgb Conc 33.1 g/dL (31-36); Mean Corpuscular Volume 89.1 fL (80-97); Mean Platelet Volume 7.4 fL (7.5-11.2); Platelet Count 124 10^3/uL (150-450); Red Blood Count 4.26 10^6/uL (4.06-5.63); Red Cell Distribution Width 19.5 % (12-17); White Blood Count 8.4 10^3/uL (3.6-10.2)
[2023-01-02 06:41] LABS: ABS Eosinophils 0.2 10^3/uL (0.0-0.5); ABS Lymphocytes 0.9 10^3/uL (1.0-4.8); ABS Monocytes 0.7 10^3/uL (0.0-1.1); ABS Neutrophils 6.6 10^3/uL (1.5-7.6); ABS Nucleated RBC 0.02 10^3/ul; Lymphocyte % 10.9 %; Nucleated Red Blood Cells % 0.2 /100 WBC (0.0-0.4)
[2023-01-02 07:05] LABS: Albumin/Globulin Ratio 1.1 (1-3); Calcium 7.3 mg/dL (8.6-10.3); Creatinine, Serum 0.62 mg/dL (0.67-1.17); Globulin 2.8 g/dL (2-4); Magnesium 1.6 mg/dL (1.9-2.7); Phosphorus 1.4 mg/dL (2.5-5.0); Potassium 3.4 mmol/L (3.5-5.0); Total Bilirubin 0.9 mg/dL (0.2-1.0); Total Protein 5.8 g/dL (6.4-8.9); eGFR CKD-EPI 108.1 (>60)
[2023-01-02] MEDS ORDERED: Potassium Phosphate IV 15 MMOL in NS 0.9% 250 ml 250 ML IVPB ONE (07:30)
[2023-01-02] MEDS ORDERED: Potassium EFFERVES 25 meq TAB PO ONE (07:30)
[2023-01-02] MEDS ORDERED: Magnesium Sulfate IV 3 GM in NS 0.9% 100 ml BAG 100 ML IVPB ONE (07:31)
[2023-01-02] MEDS ORDERED: CALCIUM GLUCONATE 1GM/50ML NS 1 GM/50 ML BAG IV ONE (07:54)
[2023-01-02] MEDS: Lidocaine 2% JELLY 6 ML Topical TOPICAL SCH ×2 (08:48→21:14)
[2023-01-02] MEDS: Lidocaine PATCH 5% PATCH TRANSDERM SCH (08:48)
[2023-01-02] MEDS: Nicotine PATCH 7 MG/24 HR PATCH TRANSDERM SCH (09:23)
[2023-01-02] MEDS: NF: Mirabegron 50 mg ER TAB (NF) PO SCH (16:23)
[2023-01-02] MEDS: Insulin GLARGINE 100 un/ml 10 ml VIAL SUBCUT SCH (21:21)
[2023-01-03 04:45] LABS: Hematocrit 33.7 % (38-53); Mean Corpuscular Hemoglobin 28.6 pg (27-33); Mean Corpuscular Hgb Conc 32.6 g/dL (31-36); Mean Corpuscular Volume 87.7 fL (80-97); Mean Platelet Volume 7.5 fL (7.5-11.2); Platelet Count 118 10^3/uL (150-450); Red Blood Count 3.84 10^6/uL (4.06-5.63); Red Cell Distribution Width 19.6 % (12-17); White Blood Count 7.2 10^3/uL (3.6-10.2)
[2023-01-03 05:23] LABS: Calcium 7.4 mg/dL (8.6-10.3); Creatinine, Serum 0.55 mg/dL (0.67-1.17); Magnesium 1.9 mg/dL (1.9-2.7); eGFR CKD-EPI 112.1 (>60)
[2023-01-03 05:29] LABS: Phosphorus 3.4 mg/dL (2.5-5.0)
[2023-01-03] MEDS: Thiamine 100 MG/ML 2 ml VIAL 500 MG in NS 0.9% 250 ml 250 ML IV SCH (05:46)
[2023-01-03] MEDS: Heparin 5000 UNITS/ML 1 mL VIAL SUBCUT SCH ×3 (05:47→21:37)
[2023-01-03 08:52] LABS: ABS Basophils 0.1 10^3/uL (0.0-0.1); ABS Eosinophils 0.2 10^3/uL (0.0-0.5); ABS Lymphocytes 1.2 10^3/uL (1.0-4.8); ABS Monocytes 0.9 10^3/uL (0.0-1.1); ABS Neutrophils 4.9 10^3/uL (1.5-7.6); ABS Nucleated RBC 0.02 10^3/ul; Anisocytosis 2+; Eosinophil % 2.6 %; Lymphocyte % 16.4 %; Nucleated Red Blood Cells % 0.2 /100 WBC (0.0-0.4); Polychromasia 1+
[2023-01-03] MEDS: Lidocaine PATCH 5% PATCH TRANSDERM SCH (09:26)
[2023-01-03] MEDS: Lidocaine 2% JELLY 6 ML Topical TOPICAL SCH ×2 (09:26→21:38)
[2023-01-03] MEDS: Nicotine PATCH 7 MG/24 HR PATCH TRANSDERM SCH (09:27)
[2023-01-03] MEDS: NF: Mirabegron 50 mg ER TAB (NF) PO SCH (09:27)
[2023-01-03] MEDS ORDERED: Iodixanol (CONTRAST) 320 MG/ML 100 ML SDV IV ONE (11:22)
[2023-01-03] MEDS ORDERED: Lidocaine 1% w EPI 1:100,000 MDV 20 ML VIAL INJ ONE (14:54)
[2023-01-03] MEDS ORDERED: Clindamycin 600 MG/D5W BAG 600 MG/50 ML BAG IV SCH (15:00)
[2023-01-03] MEDS ORDERED: Lidocaine 2% PF 5 ML VIAL ONE (15:08)
[2023-01-03] MEDS ORDERED: Vancomycin 1,500 MG in NS 0.9% 250 ml 250 ML IVPB ONE (16:44)
[2023-01-03] MEDS ORDERED: Piperacillin/Tazobac ADVAN 3.375 GM in NS 0.9% 100 ml BAG 100 ML IV ONE (16:45)
[2023-01-03] MEDS ORDERED: Vancomycin per Pharmacy 1 EA NOTE FOLLOW UP PRN (16:53)
[2023-01-03] MEDS ORDERED: Zosyn per Pharmacy NOTE FOLLOW UP SCH (17:00)
[2023-01-03] MEDS ORDERED: Vancomycin Trough Check NOTE FOLLOW UP ONE (17:30)
[2023-01-03] MEDS: Insulin GLARGINE 100 un/ml 10 ml VIAL SUBCUT SCH (21:37)
[2023-01-04] MEDS: Vancomycin 1,250 MG in NS 0.9% 250 ml 250 ML IVPB SCH ×3 (02:21→19:09)
[2023-01-04] MEDS: Heparin 5000 UNITS/ML 1 mL VIAL SUBCUT SCH ×3 (05:26→20:55)
[2023-01-04 08:14] LABS: C Reactive Protein 146.25 mg/L (<8.01)
[2023-01-04 08:16] LABS: ABS Eosinophils 0.2 10^3/uL (0.0-0.5); ABS Lymphocytes 1.1 10^3/uL (1.0-4.8); ABS Monocytes 1.2 10^3/uL (0.0-1.1); ABS Neutrophils 3.6 10^3/uL (1.5-7.6); ABS Nucleated RBC 0.02 10^3/ul; Eosinophil % 2.7 %; Hematocrit 36.3 % (38-53); Hemoglobin 11.9 g/dL (13.2-16.3); Lymphocyte % 17.2 %; Mean Corpuscular Hemoglobin 29.2 pg (27-33); Mean Corpuscular Hgb Conc 32.6 g/dL (31-36); Mean Corpuscular Volume 89.5 fL (80-97); Mean Platelet Volume 7.6 fL (7.5-11.2); Nucleated Red Blood Cells % 0.4 /100 WBC (0.0-0.4); Platelet Count 160 10^3/uL (150-450); Red Blood Count 4.06 10^6/uL (4.06-5.63); Red Cell Distribution Width 19.6 % (12-17); White Blood Count 6.1 10^3/uL (3.6-10.2)
[2023-01-04] MEDS: Nicotine PATCH 7 MG/24 HR PATCH TRANSDERM SCH (08:49)
[2023-01-04] MEDS: Lidocaine 2% JELLY 6 ML Topical TOPICAL SCH ×2 (08:51→20:56)
[2023-01-04] MEDS: Lidocaine PATCH 5% PATCH TRANSDERM SCH (08:51)
[2023-01-04 09:36] LABS: Calcium 7.9 mg/dL (8.6-10.3); Creatinine, Serum 0.61 mg/dL (0.67-1.17); Potassium 3.4 mmol/L (3.5-5.0); eGFR CKD-EPI 108.6 (>60)
[2023-01-04 10:32] LABS: Erythrocyte Sed Rate 71 mm/Hr (0-19)
[2023-01-04] MEDS ORDERED: Potassium Chlor 20 meq TAB.ER PO ONE (12:21)
[2023-01-04 12:49] LABS: Magnesium 1.6 mg/dL (1.9-2.7)
[2023-01-04] MEDS: NF: Mirabegron 50 mg ER TAB (NF) PO SCH (13:23)
[2023-01-04] MEDS ORDERED: Vancomycin Trough Check NOTE FOLLOW UP ONE (17:30)
[2023-01-04 18:15] LABS: Creatinine, Serum 0.69 mg/dL (0.67-1.17); Vancomycin Trough 10.9 mcg/mL; eGFR CKD-EPI 104.6 (>60)
[2023-01-04] MEDS ORDERED: Insulin GLARGINE 100 un/ml 10 ml VIAL SUBCUT SCH (21:00)
[2023-01-05] MEDS: Vancomycin 1,250 MG in NS 0.9% 250 ml 250 ML IVPB SCH ×2 (01:59→10:39)
[2023-01-05] MEDS: Heparin 5000 UNITS/ML 1 mL VIAL SUBCUT SCH ×2 (05:14→13:12)
[2023-01-05] MEDS: Nicotine PATCH 7 MG/24 HR PATCH TRANSDERM SCH (08:05)
[2023-01-05] MEDS: Lidocaine PATCH 5% PATCH TRANSDERM SCH (08:06)
[2023-01-05] MEDS: NF: Mirabegron 50 mg ER TAB (NF) PO SCH (08:06)
[2023-01-05] MEDS: Lidocaine 2% JELLY 6 ML Topical TOPICAL SCH (08:15)
[2023-01-05 08:58] LABS: Hematocrit 35.9 % (38-53); Hemoglobin 11.7 g/dL (13.2-16.3); Mean Corpuscular Hemoglobin 29.4 pg (27-33); Mean Corpuscular Hgb Conc 32.6 g/dL (31-36); Mean Platelet Volume 7.9 fL (7.5-11.2); Platelet Count 171 10^3/uL (150-450); Red Blood Count 3.99 10^6/uL (4.06-5.63); Red Cell Distribution Width 19.5 % (12-17); White Blood Count 6.1 10^3/uL (3.6-10.2)
[2023-01-05 09:39] LABS: Calcium 7.9 mg/dL (8.6-10.3); Creatinine, Serum 0.54 mg/dL (0.67-1.17); Magnesium 1.5 mg/dL (1.9-2.7); Potassium 3.3 mmol/L (3.5-5.0); eGFR CKD-EPI 112.7 (>60)
[2023-01-05] MEDS: KCL 20 MEQ/100 ML IVPREMIX 20 MEQ/100 ML BAG IV SCH ×2 (10:40→14:49)
[2023-01-05 11:00] LABS: ABS Eosinophils 0.1 10^3/uL (0.0-0.5); ABS Lymphocytes 1.1 10^3/uL (1.0-4.8); ABS Monocytes 0.8 10^3/uL (0.0-1.1); ABS Neutrophils 4.1 10^3/uL (1.5-7.6); ABS Nucleated RBC 0.02 10^3/ul; Eosinophil % 1.4 %; Lymphocyte % 18.1 %; Nucleated Red Blood Cells % 0.3 /100 WBC (0.0-0.4)
[2023-01-05] MEDS ORDERED: Magnesium Sulf 4 GM/100 ML IV 4,000 MG/100 ML BAG IVPB ONE (11:00)
[2023-01-05 15:02] VITALS: BP 133/79
[2023-01-06] MEDS ORDERED: Vancomycin Trough Check NOTE FOLLOW UP ONE (05:30)
== END 2023-01-05 16:45 | disposition short-term general hospital (02) | DRG 637 ==
LOC: ED 08:17 → SUATTDRO 15:05 → EDHOLD 15:05 → ICU 16:58 → MEDTELE 01-03 21:15
PROVIDERS: ADMIT Internal Medicine; ATTEND Internal Medicine

== ENCOUNTER 2023-05-20 12:53 | Observation (INO) ==
[2023-05-20] MEDS ORDERED: NS 0.9% 1000 ml BAG 1,000 ML IV ONE (13:50)
[2023-05-20 15:15] LABS: INR 1.12 (0.83-1.13)
[2023-05-20 15:20] LABS: High Sens Troponin Baseline 20 pg/mL (<20)
[2023-05-20 15:40] LABS: ALT 89 U/L (7-52); Albumin 4.1 g/dL (3.2-5.2); Albumin/Globulin Ratio 1.3 (1-3); Alkaline Phosphatase 91 U/L (35-149); Blood Urea Nitrogen 20 mg/dL (6-24); CO2 Carbon Dioxide 23 mmol/L (22-32); Calcium 8.6 mg/dL (8.6-10.3); Chloride 99 mmol/L (101-111); Creatinine, Serum 0.92 mg/dL (0.67-1.17); Globulin 3.1 g/dL (2-4); Glucose 146 mg/dL (70-100); Sodium 140 mmol/L (135-145); Total Protein 7.2 g/dL (6.4-8.9); eGFR CKD-EPI 94.1 (>60)
[2023-05-20 15:46] LABS: Anion Gap 18 mmol/L (2-16)
[2023-05-20 16:26] LABS: ABS Basophils 0.1 10^3/uL (0.0-0.1); ABS Eosinophils 0.2 10^3/uL (0.0-0.5); ABS Lymphocytes 2.1 10^3/uL (1.0-4.8); ABS Monocytes 0.7 10^3/uL (0.0-1.1); ABS Neutrophils 4.4 10^3/uL (1.5-7.6); ABS Nucleated RBC 0.01 10^3/ul; Eosinophil % 2.7 %; Hematocrit 38.6 % (38-53); Hemoglobin 12.8 g/dL (13.2-16.3); Mean Corpuscular Hemoglobin 30.3 pg (27-33); Mean Corpuscular Hgb Conc 33.1 g/dL (31-36); Mean Corpuscular Volume 91.3 fL (80-97); Nucleated Red Blood Cells % 0.2 /100 WBC (0.0-0.4); Platelet Count 183 10^3/uL (150-450); Red Blood Count 4.23 10^6/uL (4.06-5.63); Red Cell Distribution Width 18.6 % (12-17); White Blood Count 7.4 10^3/uL (3.6-10.2)
[2023-05-20 16:59] LABS: Alcohol, S 71 mg/dL (<13)
[2023-05-20 17:16] LABS: Magnesium 1.6 mg/dL (1.9-2.7); Potassium Redraw 3.8 mmol/L (3.5-5.0)
[2023-05-20 18:08] LABS: Urine Appearance Clear; Urine Bilirubin Negative (Negative); Urine Blood Negative (Negative); Urine Color Amber; Urine Glucose 1+(50 mg/dL) (Negative); Urine Ketones Negative (Negative); Urine Nitrite Negative (Negative); Urine Protein 2+(100 mg/dL) (Negative); Urine Specific Gravity 1.019 (1.002-1.030); Urine Urobilinogen Negative (Negative)
[2023-05-20 18:19] LABS: Urine Bacteria Absent (Absent); Urine Red Blood Cell Trace(0-2/hpf) (Absent); Urine White Blood Cell 1+(6-10/hpf) (Absent)
[2023-05-20] MEDS ORDERED: Magnesium Sulf 4 GM/100 ML IV 4,000 MG/100 ML BAG IVPB ONE (19:47)
[2023-05-20] MEDS ORDERED: Dextrose 50% Syringe 50 ml 25 GM/50 ML SYRINGE IV PUSH PRN (19:49)
[2023-05-20] MEDS ORDERED: Insulin GLARGINE 100 un/ml 10 ml VIAL SUBCUT SCH ×4 (21:00)
[2023-05-20 21:19] LABS: Folate > 20.00 ng/mL (5.90-24.80)
[2023-05-20 21:20] LABS: Vitamin B12 393 pg/mL (180-914)
[2023-05-21] MEDS ORDERED: Lorazepam PYXIS KEY PRN ×3 (02:34→23:48)
[2023-05-21] MEDS ORDERED: LORazepam 2 mg VIAL 1 ml IV PUSH ONE ×2 (02:34→23:48)
[2023-05-21] MEDS: ICOSAPENT ETHYL 1 GM CAPSULE (NF) PO SCH ×3 (03:45→20:57)
[2023-05-21 06:14] LABS: ABS Eosinophils 0.2 10^3/uL (0.0-0.5); ABS Monocytes 0.4 10^3/uL (0.0-1.1); ABS Neutrophils 2.5 10^3/uL (1.5-7.6); ABS Nucleated RBC 0.01 10^3/ul; Eosinophil % 5.6 %; Hematocrit 39.1 % (38-53); Hemoglobin 12.9 g/dL (13.2-16.3); Lymphocyte % 23.9 %; Mean Corpuscular Hemoglobin 30.4 pg (27-33); Mean Corpuscular Hgb Conc 33.1 g/dL (31-36); Mean Corpuscular Volume 91.9 fL (80-97); Mean Platelet Volume 7.9 fL (7.5-11.2); Nucleated Red Blood Cells % 0.2 /100 WBC (0.0-0.4); Platelet Count 144 10^3/uL (150-450); Red Blood Count 4.25 10^6/uL (4.06-5.63); Red Cell Distribution Width 17.8 % (12-17); White Blood Count 4.2 10^3/uL (3.6-10.2)
[2023-05-21 06:39] LABS: Calcium 8.3 mg/dL (8.6-10.3); Creatinine, Serum 0.83 mg/dL (0.67-1.17); Magnesium 2.2 mg/dL (1.9-2.7); Potassium 4.4 mmol/L (3.5-5.0)
[2023-05-21 06:40] LABS: Albumin/Globulin Ratio 1.3 (1-3); Total Bilirubin 1.2 mg/dL (0.2-1.0)
[2023-05-21] MEDS ORDERED: LORazepam 2 mg VIAL 1 ml IV PUSH PRN (08:14)
[2023-05-21 09:28] LABS: Glucose Confirmatory 404 mg/dL (70-100)
[2023-05-21] MEDS: Insulin GLARGINE 100 un/ml 10 ml VIAL SUBCUT SCH ×2 (09:50→21:06)
[2023-05-21] MEDS: Multivitamins/Minerals TAB PO SCH (09:56)
[2023-05-22] MEDS: ICOSAPENT ETHYL 1 GM CAPSULE (NF) PO SCH (09:03)
[2023-05-22] MEDS: Insulin GLARGINE 100 un/ml 10 ml VIAL SUBCUT SCH (09:06)
[2023-05-22] MEDS: Multivitamins/Minerals TAB PO SCH (09:08)
[2023-05-22 09:18] LABS: Calcium 8.5 mg/dL (8.6-10.3); Magnesium 1.7 mg/dL (1.9-2.7); Potassium 4.5 mmol/L (3.5-5.0)
[2023-05-22 09:23] LABS: Creatinine, Serum 0.86 mg/dL (0.67-1.17)
[2023-05-22 09:24] LABS: eGFR CKD-EPI 97.9 (>60)
[2023-05-22 12:21] VITALS: BP 131/69
== END 2023-05-22 11:45 | disposition home or self-care (01) ==
LOC: ED 12:53 → EDHOLD 12:53 → SUATTDRO 18:33 → MEDTELE 05-21 12:26
PROVIDERS: ADMIT Internal Medicine; ATTEND Student in an Organized Health Care Education/Training Program

== ENCOUNTER 2023-10-20 12:00 | Observation (INO) ==
[2023-10-20] MEDS ORDERED: Lidocaine PATCH 5% PATCH TRANSDERM ONE (13:17)
[2023-10-20] MEDS ORDERED: Orphenadrine Citrate INJ 30 mg/ml 2 ml VIAL (60 mg) IM ONE (13:17)
[2023-10-20] MEDS ORDERED: Acetaminophen IV 1 GM/100ML 1,000 MG/100 ML BAG IV ONE (13:17)
[2023-10-20 13:25] LABS: ABS Eosinophils 0.2 10^3/uL (0.0-0.5); ABS Lymphocytes 1.6 10^3/uL (1.0-4.8); ABS Monocytes 0.7 10^3/uL (0.0-1.1); ABS Neutrophils 4.3 10^3/uL (1.5-7.6); ABS Nucleated RBC 0.01 10^3/ul; Eosinophil % 3.3 %; Hematocrit 37.5 % (38-53); Hemoglobin 12.2 g/dL (13.2-16.3); Lymphocyte % 24.1 %; Mean Corpuscular Hemoglobin 28.4 pg (27-33); Mean Corpuscular Hgb Conc 32.5 g/dL (31-36); Mean Corpuscular Volume 87.3 fL (80-97); Mean Platelet Volume 8.3 fL (7.5-11.2); Nucleated Red Blood Cells % 0.1 %/100WBC (0.0-0.8); Platelet Count 207 10^3/uL (150-450); Red Cell Distribution Width 20.2 % (12-17); White Blood Count 6.8 10^3/uL (3.6-10.2)
[2023-10-20 13:47] LABS: ALT 53 U/L (7-52); AST 97 U/L (13-39); Albumin/Globulin Ratio 1.3 (1-3); Alkaline Phosphatase 94 U/L (35-149); Anion Gap 14 mmol/L (2-16); Blood Urea Nitrogen 19 mg/dL (6-24); CO2 Carbon Dioxide 35 mmol/L (22-32); Calcium 9.6 mg/dL (8.6-10.3); Chloride 94 mmol/L (101-111); Creatine Kinase 137 U/L (10-223); Creatinine, Serum 1.22 mg/dL (0.67-1.17); Globulin 3.1 g/dL (2-4); Glucose 132 mg/dL (70-100); Potassium 3.3 mmol/L (3.5-5.0); Sodium 143 mmol/L (135-145); Total Protein 7.1 g/dL (6.4-8.9); eGFR CKD-EPI 66.6 (>60)
[2023-10-20] MEDS ORDERED: Iodixanol (CONTRAST) 320 MG/ML 100 ML SDV IV ONE (13:59)
[2023-10-20] MEDS ORDERED: KCL 20 MEQ/100 ML IVPREMIX 20 MEQ/100 ML BAG IV ONE (14:19)
[2023-10-20] MEDS ORDERED: NS 0.9% 1000 ml BAG 1,000 ML IV ONE (14:20)
[2023-10-20 14:37] LABS: Erythrocyte Sed Rate 20 mm/Hr (0-19)
[2023-10-20 15:36] LABS: Magnesium 1.7 mg/dL (1.9-2.7)
[2023-10-20 15:41] LABS: Alcohol, S < 13 mg/dL (<13)
[2023-10-20 15:57] LABS: High Sensitivity Troponin 1 Hr 31 pg/mL (<20)
[2023-10-20 17:05] LABS: Urine Appearance Clear; Urine Bilirubin Negative (Negative); Urine Blood Negative (Negative); Urine Color Yellow; Urine Glucose Negative (Negative); Urine Ketones Trace (Negative); Urine Nitrite Negative (Negative); Urine Protein 1+(30 mg/dL) (Negative); Urine Urobilinogen Negative (Negative)
[2023-10-20 17:19] LABS: Urine Bacteria Absent (Absent); Urine Red Blood Cell Trace(0-2/hpf) (Absent); Urine Squamous Epithelial Cell Present (Absent); Urine White Blood Cell Trace(0-5/hpf) (Absent)
[2023-10-20 17:23] LABS: Urine Specific Gravity 1.064 (1.002-1.030)
[2023-10-20] MEDS ORDERED: Ondansetron ODT 4 mg TAB 4 MG TAB PO PRN (18:48)
[2023-10-20] MEDS ORDERED: Acetaminophen IV 1 GM/100ML 1,000 MG/100 ML BAG IV PRN (18:51)
[2023-10-20] MEDS ORDERED: Dextrose 50% Syringe 50 ml 25 GM/50 ML SYRINGE IV PUSH PRN (18:54)
[2023-10-20] MEDS ORDERED: Nicotine PATCH 7 MG/24 HR PATCH TRANSDERM PRN (18:56)
[2023-10-20] MEDS ORDERED: Enoxaparin 40 MG/0.4 ML SYR SUBCUT SCH (21:00)
[2023-10-20] MEDS: NF:ICOSAPENT ETHYL 1 GM CAPSULE (NF) PO SCH (23:08)
[2023-10-21 06:36] LABS: ABS Basophils 0.1 10^3/uL (0.0-0.1); ABS Eosinophils 0.4 10^3/uL (0.0-0.5); ABS Lymphocytes 1.5 10^3/uL (1.0-4.8); ABS Monocytes 0.5 10^3/uL (0.0-1.1); ABS Neutrophils 2.4 10^3/uL (1.5-7.6); Eosinophil % 7.6 %; Hematocrit 35.3 % (38-53); Hemoglobin 11.3 g/dL (13.2-16.3); Mean Corpuscular Hgb Conc 31.9 g/dL (31-36); Mean Corpuscular Volume 87.8 fL (80-97); Mean Platelet Volume 8.2 fL (7.5-11.2); Platelet Count 170 10^3/uL (150-450); Red Blood Count 4.02 10^6/uL (4.06-5.63); Red Cell Distribution Width 20.2 % (12-17); White Blood Count 4.8 10^3/uL (3.6-10.2)
[2023-10-21 06:39] LABS: INR 1.21 (0.83-1.13)
[2023-10-21 06:46] LABS: Albumin 3.8 g/dL (3.2-5.2); Albumin/Globulin Ratio 1.3 (1-3); Calcium 8.6 mg/dL (8.6-10.3); Creatinine, Serum 1.1 mg/dL (0.67-1.17); Magnesium 1.9 mg/dL (1.9-2.7); Phosphorus 5.2 mg/dL (2.5-5.0); Potassium 3.5 mmol/L (3.5-5.0); Total Bilirubin 0.8 mg/dL (0.2-1.0); Total Protein 6.8 g/dL (6.4-8.9); eGFR CKD-EPI 75.4 (>60)
[2023-10-21] MEDS ORDERED: Insulin GLARGINE 100 un/ml 10 ml VIAL SUBCUT SCH (09:00)
[2023-10-21] MEDS ORDERED: Multivitamins/Minerals TAB PO SCH (09:00)
[2023-10-21] MEDS: NF:ICOSAPENT ETHYL 1 GM CAPSULE (NF) PO SCH (10:04)
[2023-10-21 13:55] VITALS: BP 144/77
== END 2023-10-21 14:26 | disposition home or self-care (01) ==
LOC: ED 12:00 → EDHOLD 12:00 → MEDTELE 19:49
PROVIDERS: ADMIT Internal Medicine; ATTEND Internal Medicine

== ENCOUNTER 2024-02-06 16:00 | Observation (INO) ==
[2024-02-06 16:41] LABS: ABS Basophils 0.1 10^3/uL (0.0-0.1); ABS Eosinophils 0.2 10^3/uL (0.0-0.5); ABS Lymphocytes 1.7 10^3/uL (1.0-4.8); ABS Monocytes 0.9 10^3/uL (0.0-1.1); ABS Neutrophils 5.8 10^3/uL (1.5-7.6); Eosinophil % 2.4 %; Hematocrit 33.2 % (38-53); Hemoglobin 10.8 g/dL (13.2-16.3); Lymphocyte % 19.8 %; Mean Corpuscular Hemoglobin 29.2 pg (27-33); Mean Corpuscular Hgb Conc 32.4 g/dL (31-36); Mean Corpuscular Volume 90.2 fL (80-97); Mean Platelet Volume 8.3 fL (7.5-11.2); Platelet Count 160 10^3/uL (150-450); Red Blood Count 3.68 10^6/uL (4.06-5.63); Red Cell Distribution Width 18.6 % (12-17); White Blood Count 8.7 10^3/uL (3.6-10.2)
[2024-02-06 16:44] LABS: Activated Partial Thrombo Time 34.4 seconds (26.0-38.0); INR 1.16 (0.83-1.13)
[2024-02-06 17:32] LABS: Albumin 3.9 g/dL (3.2-5.2); Albumin/Globulin Ratio 1.5 (1-3); Creatinine, Serum 3.93 mg/dL (0.67-1.17); Direct Bilirubin 0.3 mg/dL (0.03-0.18); Globulin 2.6 g/dL (2-4); Indirect Bilirubin 0.6 mg/dL (0.3-1.0); Potassium 4.9 mmol/L (3.5-5.0); Total Bilirubin 0.9 mg/dL (0.2-1.0); Total Protein 6.5 g/dL (6.4-8.9); eGFR CKD-EPI 16.4 (>60)
[2024-02-06] MEDS: Lactated Ringers 1000 ml BAG 1,000 ML IV ONE ×2 (17:57→19:10)
[2024-02-06 18:34] LABS: Urine Appearance Clear; Urine Bilirubin Negative (Negative); Urine Blood Trace (Negative); Urine Color Yellow; Urine Glucose 3+ (>=300 mg/dL) (Negative); Urine Ketones Negative (Negative); Urine Nitrite Negative (Negative); Urine Protein Trace (Negative); Urine Specific Gravity 1.022 (1.002-1.030); Urine Urobilinogen Negative (Negative)
[2024-02-06] MEDS: Iodixanol (CONTRAST) 320 MG/ML 100 ML SDV IV ONE (21:33)
[2024-02-06] MEDS ORDERED: Polyethylene Glycol 3350 17 GM PACKET PO PRN (22:46)
[2024-02-06 22:58] LABS: Calcium 8.5 mg/dL (8.6-10.3); Creatinine, Serum 3.33 mg/dL (0.67-1.17); Potassium 4.5 mmol/L (3.5-5.0)
[2024-02-06] MEDS ORDERED: Dextrose 50% Syringe 50 ml 25 GM/50 ML SYRINGE IV PUSH PRN (23:38)
[2024-02-07] MEDS: Insulin GLARGINE 100 un/ml 10 ml VIAL SUBCUT ONE ×2 (00:47→13:43)
[2024-02-07] MEDS: Heparin 5000 UNITS/ML 1 mL VIAL SUBCUT SCH (00:48)
[2024-02-07] MEDS: Multivitamins/Minerals TAB PO SCH (00:48)
[2024-02-07] MEDS: Thiamine 100 MG/ML 2 ml VIAL (200 mg) IM ONE (00:55)
[2024-02-07 01:25] LABS: Magnesium 2.4 mg/dL (1.9-2.7); Phosphorus 4.9 mg/dL (2.5-5.0)
[2024-02-07 01:42] LABS: TSH Ultra Thyroid Stim Horm 1.31 mcIU/mL (0.34-5.60)
[2024-02-07 06:24] LABS: ABS Eosinophils 0.3 10^3/uL (0.0-0.5); ABS Lymphocytes 1.2 10^3/uL (1.0-4.8); ABS Monocytes 0.6 10^3/uL (0.0-1.1); ABS Neutrophils 3.3 10^3/uL (1.5-7.6); ABS Nucleated RBC 0.01 10^3/ul; Eosinophil % 5.1 %; Hematocrit 34.7 % (38-53); Hemoglobin 11.3 g/dL (13.2-16.3); Lymphocyte % 21.6 %; Mean Corpuscular Hemoglobin 29.3 pg (27-33); Mean Corpuscular Hgb Conc 32.6 g/dL (31-36); Mean Corpuscular Volume 89.8 fL (80-97); Mean Platelet Volume 8.3 fL (7.5-11.2); Nucleated Red Blood Cells % 0.1 %/100WBC (0.0-0.8); Platelet Count 145 10^3/uL (150-450); Red Blood Count 3.87 10^6/uL (4.06-5.63); Red Cell Distribution Width 18.5 % (12-17); White Blood Count 5.3 10^3/uL (3.6-10.2)
[2024-02-07 06:43] LABS: Anion Gap 10 mmol/L (2-16); Blood Urea Nitrogen 45 mg/dL (6-24); CO2 Carbon Dioxide 29 mmol/L (22-32); Calcium 8.8 mg/dL (8.6-10.3); Chloride 99 mmol/L (101-111); Glucose 247 mg/dL (70-100); Magnesium 2.3 mg/dL (1.9-2.7); Potassium 4.6 mmol/L (3.5-5.0); Sodium 138 mmol/L (135-145); eGFR CKD-EPI 21.8 (>60)
[2024-02-07] MEDS: Nicotine PATCH 7 MG/24 HR PATCH TRANSDERM SCH (08:01)
[2024-02-07 08:02] LABS: Osmolality Serum 313 mOsm/kg (275-295)
[2024-02-07] MEDS: NF: ICOSAPENT ETHYL 1 GM CAPSULE (NF) PO SCH (08:18)
[2024-02-07 08:30] LABS: Urine Creatinine Concentration 42.88 mg/dL (20.00-370.00); Urine Osmo 374 mOsm/kg (150-1150); Urine Sodium Concentration 81 mmol/L
[2024-02-07] MEDS: Lactated Ringers 1000 ml BAG 1,000 ML IV ONE ×2 (09:12→09:47)
[2024-02-07 10:21] LABS: % Iron Saturation 25 % (15-55); .Transferrin 323 mg/dL (203-362); Iron 112 ug/dL (50-212); Total Iron Binding Capacity 452 mcg/dL (250-450); Unsaturated Iron Binding 340 ug/dL
[2024-02-07 10:26] LABS: UR Microalbumin (mg/L) < 15.0 mg/L
[2024-02-07 10:43] LABS: Ferritin 51.8 ng/mL (24-336)
[2024-02-07 10:47] LABS: Folate > 20.00 ng/mL (5.90-24.80)
[2024-02-07 10:48] LABS: Vitamin B12 532 pg/mL (180-914)
[2024-02-07 10:50] LABS: Urine Creatinine 42.88 mg/dL
[2024-02-07] MEDS: Senna TAB 8.6 mg TAB PO PRN (20:36)
[2024-02-07] MEDS ORDERED: Insulin GLARGINE 100 un/ml 10 ml VIAL SUBCUT SCH (21:00)
[2024-02-08 06:05] LABS: Hematocrit 33.9 % (38-53); Hemoglobin 11.3 g/dL (13.2-16.3); Mean Corpuscular Hemoglobin 29.9 pg (27-33); Mean Corpuscular Hgb Conc 33.3 g/dL (31-36); Mean Corpuscular Volume 89.7 fL (80-97); Mean Platelet Volume 8.2 fL (7.5-11.2); Platelet Count 141 10^3/uL (150-450); Red Blood Count 3.78 10^6/uL (4.06-5.63); Red Cell Distribution Width 17.8 % (12-17); White Blood Count 4.9 10^3/uL (3.6-10.2)
[2024-02-08 06:37] LABS: Albumin/Globulin Ratio 1.4 (1-3); Calcium 8.9 mg/dL (8.6-10.3); Creatinine, Serum 2.02 mg/dL (0.67-1.17); Direct Bilirubin 0.2 mg/dL (0.03-0.18); Globulin 2.9 g/dL (2-4); Indirect Bilirubin 0.4 mg/dL (0.3-1.0); Potassium 4.9 mmol/L (3.5-5.0); Total Bilirubin 0.6 mg/dL (0.2-1.0); Total Protein 6.9 g/dL (6.4-8.9); eGFR CKD-EPI 36.4 (>60)
[2024-02-08] MEDS: Insulin GLARGINE 100 un/ml 10 ml VIAL SUBCUT SCH (08:08)
[2024-02-08 10:22] LABS: Phosphorus 4.8 mg/dL (2.5-5.0)
[2024-02-08 11:33] VITALS: BP 157/83
== END 2024-02-08 13:20 | disposition left against medical advice (07) ==
LOC: ED 16:00 → EDHOLD 16:00 → SUATTDRO 22:46 → MEDTELE 02-07 05:22
PROVIDERS: ADMIT Student in an Organized Health Care Education/Training Program; ATTEND Hospitalist

== ENCOUNTER 2024-02-08 18:48 | Inpatient (IN) ==
[2024-02-08 19:10] LABS: ABS Basophils 0.1 10^3/uL (0.0-0.1); ABS Eosinophils 0.2 10^3/uL (0.0-0.5); ABS Lymphocytes 1.4 10^3/uL (1.0-4.8); ABS Monocytes 0.6 10^3/uL (0.0-1.1); ABS Neutrophils 3.2 10^3/uL (1.5-7.6); ABS Nucleated RBC 0.01 10^3/ul; Eosinophil % 3.7 %; Hematocrit 32.4 % (38-53); Hemoglobin 10.8 g/dL (13.2-16.3); Lymphocyte % 25.5 %; Mean Corpuscular Hemoglobin 29.7 pg (27-33); Mean Corpuscular Hgb Conc 33.3 g/dL (31-36); Mean Corpuscular Volume 89.2 fL (80-97); Mean Platelet Volume 8.5 fL (7.5-11.2); Nucleated Red Blood Cells % 0.2 %/100WBC (0.0-0.8); Platelet Count 151 10^3/uL (150-450); Red Blood Count 3.63 10^6/uL (4.06-5.63); Red Cell Distribution Width 18.1 % (12-17); White Blood Count 5.5 10^3/uL (3.6-10.2)
[2024-02-08 19:22] LABS: Urine Appearance Clear; Urine Bilirubin Negative (Negative); Urine Blood Negative (Negative); Urine Color Light-Yellow; Urine Glucose 3+ (>=300 mg/dL) (Negative); Urine Ketones Negative (Negative); Urine Nitrite Negative (Negative); Urine Protein Negative (Negative); Urine Specific Gravity 1.008 (1.002-1.030); Urine Urobilinogen Negative (Negative); Urine pH 6.5 (5.0-8.0)
[2024-02-08 19:51] LABS: ALT 46 U/L (7-52); Albumin 3.7 g/dL (3.2-5.2); Albumin/Globulin Ratio 1.3 (1-3); Alcohol, S 80 mg/dL (<13); Alkaline Phosphatase 76 U/L (35-149); Blood Urea Nitrogen 28 mg/dL (6-24); CO2 Carbon Dioxide 23 mmol/L (22-32); Calcium 8.5 mg/dL (8.6-10.3); Chloride 102 mmol/L (101-111); Globulin 2.8 g/dL (2-4); Glucose 146 mg/dL (70-100); Sodium 139 mmol/L (135-145); Total Bilirubin 0.5 mg/dL (0.2-1.0); Total Protein 6.5 g/dL (6.4-8.9); eGFR CKD-EPI 44.7 (>60)
[2024-02-08 19:52] LABS: Anion Gap 14 mmol/L (2-16)
[2024-02-08] MEDS: Lactated Ringers 1000 ml BAG 1,000 ML IV ONE (20:31)
[2024-02-08] MEDS: Thiamine 100 MG/ML 2 ml VIAL 100 MG, Folic Acid IV 1 MG, Multiple Vitamin IV ADULT 10 M... IV ONE (20:48)
[2024-02-08] MEDS ORDERED: diazePAM INJ CARPUJECT 5 MG/ML SYRINGE ONE (21:27)
[2024-02-08] MEDS: diazePAM INJ CARPUJECT 5 MG/ML SYRINGE IV ONE ×2 (21:29→21:52)
[2024-02-08] MEDS ORDERED: Droperidol 5 MG/2 ML 2 ML VIAL ONE (21:47)
[2024-02-08] MEDS: Droperidol 5 MG/2 ML 2 ML VIAL IV ONE (21:52)
[2024-02-08] MEDS ORDERED: Succinylcholine 200 mg VIAL 20 mg/ml 10 ml VIAL (200 mg) ONE (21:57)
[2024-02-08] MEDS ORDERED: Rocuronium 50 mg VIAL 10 mg/ml 5 ml VIAL (50 mg) ONE ×3 (21:57→22:06)
[2024-02-08] MEDS ORDERED: Etomidate 40 mg/20 ml (2 MG/ML) 20 ml VIAL (40 mg) ONE (22:06)
[2024-02-08] MEDS ORDERED: Propofol 10 mg/ml 100 ML BTL 1,000 MG/100 ML BTL ONE (22:09)
[2024-02-08] MEDS: Propofol 10 mg/ml 100 ML BTL 1,000 MG/100 ML BTL IV SCH ×2 (22:16→23:10)
[2024-02-08 22:17] LABS: Potassium Redraw 4.5 mmol/L (3.5-5.0)
[2024-02-08] MEDS ORDERED: Dextrose 50% Syringe 50 ml 25 GM/50 ML SYRINGE IV PUSH PRN (22:54)
[2024-02-08] MEDS ORDERED: Ondansetron 4 mg VIAL 2 MG/ML 2 ml VIAL IV PRN (23:07)
[2024-02-08] MEDS: Dexmedetomidine 1,000 MCG in NS 0.9% 250 ml 240 ML IV SCH (23:33)
[2024-02-08] MEDS: Metoprolol Tartrate 5 mg VIAL 5 ml VIAL (1 mg/ml) IV ONE (23:51)
[2024-02-08] MEDS: Enoxaparin 40 MG/0.4 ML SYR SUBCUT SCH (23:51)
[2024-02-09] MEDS: Lactated Ringers 1000 ml BAG 1,000 ML IV SCH (00:09)
[2024-02-09] MEDS: Midazolam PREMIXBAG 1 MG/ML NS 100 ML IV SCH (01:00)
[2024-02-09] MEDS: fentaNYL 100 mcg/2 ml 50 MCG/ML VIAL IV SLOW PU ONE (01:37)
[2024-02-09] MEDS: Norepinephrine 4 MG/250mL D5W 4,000 MCG/250 ML BAG IV ONE (01:57)
[2024-02-09] MEDS: Norepinephrine 4 MG/250mL D5W 4,000 MCG/250 ML BAG IV SCH (01:58)
[2024-02-09] MEDS: fentaNYL INFUSION 50 mcg/mL VL 2,500 MCG/50 ML VIAL IV SCH (02:06)
[2024-02-09] MEDS: Chlorhexidine MOUTHWASH 0.12% 15 ML UDC TOPICAL SCH (04:48)
[2024-02-09 04:51] LABS: ABS Eosinophils 0.2 10^3/uL (0.0-0.5); ABS Lymphocytes 1.5 10^3/uL (1.0-4.8); ABS Monocytes 0.6 10^3/uL (0.0-1.1); ABS Neutrophils 3.4 10^3/uL (1.5-7.6); ABS Nucleated RBC 0.01 10^3/ul; Eosinophil % 3.1 %; Hematocrit 30.9 % (38-53); Hemoglobin 10.1 g/dL (13.2-16.3); Lymphocyte % 26.3 %; Mean Corpuscular Hemoglobin 29.4 pg (27-33); Mean Corpuscular Hgb Conc 32.7 g/dL (31-36); Mean Corpuscular Volume 89.9 fL (80-97); Mean Platelet Volume 8.1 fL (7.5-11.2); Nucleated Red Blood Cells % 0.2 %/100WBC (0.0-0.8); Platelet Count 137 10^3/uL (150-450); Red Blood Count 3.44 10^6/uL (4.06-5.63); White Blood Count 5.6 10^3/uL (3.6-10.2)
[2024-02-09 04:55] LABS: Urine Appearance Clear; Urine Bacteria Absent /HPF (Absent); Urine Bilirubin Negative (Negative); Urine Blood 1+ (Negative); Urine Color Yellow; Urine Glucose 4+ (>=1000 mg/dL) (Negative); Urine Ketones Negative (Negative); Urine Nitrite Negative (Negative); Urine Protein Negative (Negative); Urine Red Blood Cell 2+(6-10/hpf) /HPF (0-Trace); Urine Specific Gravity 1.019 (1.002-1.030); Urine Urobilinogen Negative (Negative); Urine White Blood Cell Absent /HPF (0-Trace); Urine pH 6.5 (5.0-8.0)
[2024-02-09 05:06] LABS: Urine Benzodiazepine Screen Presumptive Positive (None Detect); Urine Cannabinoids Screen None Detected (None Detect); Urine Opiates Screen None Detected (None Detect)
[2024-02-09 05:29] LABS: Albumin 3.5 g/dL (3.2-5.2); Albumin/Globulin Ratio 1.5 (1-3); Calcium 8.4 mg/dL (8.6-10.3); Creatinine, Serum 1.54 mg/dL (0.67-1.17); Globulin 2.4 g/dL (2-4); Magnesium 1.7 mg/dL (1.9-2.7); Phosphorus 5.1 mg/dL (2.5-5.0); Potassium 4.4 mmol/L (3.5-5.0); Total Bilirubin 0.7 mg/dL (0.2-1.0); Total Protein 5.9 g/dL (6.4-8.9); eGFR CKD-EPI 50.4 (>60)
[2024-02-09] MEDS: Magnesium Sulfate 2 gm BAG 2 GM/50 ML BAG IVPB ONE (05:52)
[2024-02-09] MEDS: Magnesium Sulfate IV 1GM/100ML 1 GM/100 ML BAG IV ONE (08:19)
[2024-02-09] MEDS: Pantoprazole VIAL 40 MG VIAL IV SCH (08:23)
[2024-02-09] MEDS: Insulin GLARGINE 100 un/ml 10 ml VIAL SUBCUT SCH (08:33)
[2024-02-09] MEDS ORDERED: Ondansetron ODT 4 mg TAB 4 MG TAB PO SCH (09:00)
[2024-02-09] MEDS ORDERED: Insulin GLARGINE 100 un/ml 10 ml VIAL SUBCUT SCH (09:00)
[2024-02-09] MEDS ORDERED: Famotidine IV 10 MG/ML 2 ml VIAL (20 mg) IV SLOW PU SCH (09:00)
[2024-02-09] MEDS: Thiamine 100 MG/ML 2 ml VIAL 250 MG in NS 0.9% 100 ml BAG 100 ML IV SCH (09:34)
[2024-02-09 22:01] LABS: Urine Osmo 675 mOsm/kg (150-1150)
[2024-02-10] MEDS: Albumin Human 5% 12.5 GM/250 ML BTL IV ONE ×2 (03:19→05:48)
[2024-02-10 05:08] LABS: Hematocrit 29.9 % (38-53); Hemoglobin 10.1 g/dL (13.2-16.3); Mean Corpuscular Hemoglobin 30.3 pg (27-33); Mean Corpuscular Hgb Conc 33.6 g/dL (31-36); Mean Corpuscular Volume 89.9 fL (80-97); Mean Platelet Volume 8.2 fL (7.5-11.2); Platelet Count 123 10^3/uL (150-450); Red Blood Count 3.32 10^6/uL (4.06-5.63); Red Cell Distribution Width 18.4 % (12-17); White Blood Count 8.3 10^3/uL (3.6-10.2)
[2024-02-10 05:50] LABS: Albumin 3.4 g/dL (3.2-5.2); Albumin/Globulin Ratio 1.5 (1-3); Creatinine, Serum 1.29 mg/dL (0.67-1.17); Globulin 2.3 g/dL (2-4); Magnesium 1.8 mg/dL (1.9-2.7); Phosphorus 4.3 mg/dL (2.5-5.0); Potassium 4.2 mmol/L (3.5-5.0); Total Protein 5.7 g/dL (6.4-8.9); eGFR CKD-EPI 62.3 (>60)
[2024-02-10] MEDS: Magnesium Sulfate 2 gm BAG 2 GM/50 ML BAG IVPB ONE (06:38)
[2024-02-10 06:44] LABS: ABS Basophils 0.1 10^3/uL (0.0-0.1); ABS Eosinophils 0.2 10^3/uL (0.0-0.5); ABS Lymphocytes 1.2 10^3/uL (1.0-4.8); ABS Monocytes 0.9 10^3/uL (0.0-1.1); ABS Nucleated RBC 0.01 10^3/ul; Anisocytosis 1+; Eosinophil % 2.5 %; Nucleated Red Blood Cells % 0.2 %/100WBC (0.0-0.8)
[2024-02-10] MEDS: fentaNYL 100 mcg/2 ml 50 MCG/ML VIAL IV SLOW PU PRN (07:36)
[2024-02-10] MEDS ORDERED: Midazolam 5 mg/5 ml VIAL 1 mg/ml 5 ml VIAL (5 mg) IV SLOW PU PRN (07:56)
[2024-02-10] MEDS: Metoclopramide 5 MG/ML VIAL (10 mg) IV SLOW PU SCH (18:44)
[2024-02-10 21:46] LABS: Osmolality Serum 295 mOsm/kg (275-295)
[2024-02-11 05:17] LABS: ALT 36 U/L (7-52); AST 51 U/L (13-39); Albumin 3.6 g/dL (3.2-5.2); Albumin/Globulin Ratio 1.3 (1-3); Alkaline Phosphatase 81 U/L (35-149); Anion Gap 7 mmol/L (2-16); Blood Urea Nitrogen 14 mg/dL (6-24); CO2 Carbon Dioxide 25 mmol/L (22-32); Calcium 8.2 mg/dL (8.6-10.3); Chloride 105 mmol/L (101-111); Creatinine, Serum 1.18 mg/dL (0.67-1.17); Globulin 2.7 g/dL (2-4); Glucose 175 mg/dL (70-100); Phosphorus 3.3 mg/dL (2.5-5.0); Potassium 4.4 mmol/L (3.5-5.0); Sodium 137 mmol/L (135-145); Total Protein 6.3 g/dL (6.4-8.9); eGFR CKD-EPI 69.3 (>60)
[2024-02-11 05:40] LABS: ABS Basophils 0.1 10^3/uL (0.0-0.1); ABS Eosinophils 0.2 10^3/uL (0.0-0.5); ABS Lymphocytes 1.3 10^3/uL (1.0-4.8); ABS Monocytes 1.3 10^3/uL (0.0-1.1); ABS Neutrophils 7.9 10^3/uL (1.5-7.6); ABS Nucleated RBC 0.02 10^3/ul; Anisocytosis 1+; Eosinophil % 2.2 %; Hematocrit 32.5 % (38-53); Hemoglobin 10.4 g/dL (13.2-16.3); Lymphocyte % 11.6 %; Mean Corpuscular Hemoglobin 29.1 pg (27-33); Mean Corpuscular Hgb Conc 32.1 g/dL (31-36); Mean Corpuscular Volume 90.5 fL (80-97); Mean Platelet Volume 8.6 fL (7.5-11.2); Nucleated Red Blood Cells % 0.2 %/100WBC (0.0-0.8); Platelet Count 126 10^3/uL (150-450); Red Blood Count 3.59 10^6/uL (4.06-5.63); Red Cell Distribution Width 18.7 % (12-17); White Blood Count 10.8 10^3/uL (3.6-10.2)
[2024-02-11] MEDS: cefTRIAXone 1 gm/50 mL D5W 1 GM/50 ML BAG IV SCH (09:00)
[2024-02-11] MEDS: Azithromycin 500 mg/250 ml NS 500 MG/250 ML BAG IVPB SCH (09:39)
[2024-02-11 13:30] LABS: Lipase < 10 U/L (11.0-82.0)
[2024-02-12 05:13] LABS: Albumin 3.3 g/dL (3.2-5.2); Albumin/Globulin Ratio 1.3 (1-3); Calcium 8.3 mg/dL (8.6-10.3); Creatinine, Serum 0.95 mg/dL (0.67-1.17); Globulin 2.6 g/dL (2-4); Magnesium 1.9 mg/dL (1.9-2.7); Potassium 4.5 mmol/L (3.5-5.0); Total Bilirubin 0.7 mg/dL (0.2-1.0); Total Protein 5.9 g/dL (6.4-8.9); eGFR CKD-EPI 89.9 (>60)
[2024-02-12 05:53] LABS: ABS Basophils 0.1 10^3/uL (0.0-0.1); ABS Eosinophils 0.3 10^3/uL (0.0-0.5); ABS Lymphocytes 1.2 10^3/uL (1.0-4.8); ABS Monocytes 1.4 10^3/uL (0.0-1.1); ABS Neutrophils 5.6 10^3/uL (1.5-7.6); ABS Nucleated RBC 0.01 10^3/ul; Anisocytosis 1+; Eosinophil % 3.2 %; Hematocrit 30.7 % (38-53); Hemoglobin 9.9 g/dL (13.2-16.3); Lymphocyte % 14.1 %; Mean Corpuscular Hemoglobin 29.5 pg (27-33); Mean Corpuscular Hgb Conc 32.4 g/dL (31-36); Mean Corpuscular Volume 91.1 fL (80-97); Mean Platelet Volume 8.8 fL (7.5-11.2); Nucleated Red Blood Cells % 0.1 %/100WBC (0.0-0.8); Platelet Count 131 10^3/uL (150-450); Red Blood Count 3.37 10^6/uL (4.06-5.63); Red Cell Distribution Width 18.8 % (12-17); White Blood Count 8.5 10^3/uL (3.6-10.2)
[2024-02-12] MEDS: fentaNYL 100 mcg/2 ml 50 MCG/ML VIAL IV SLOW PU PRN (08:08)
[2024-02-12 10:36] LABS: INR 1.24 (0.83-1.13)
[2024-02-12] MEDS: Azithromycin 500 mg/250 ml NS 500 MG/250 ML BAG IVPB SCH (13:51)
[2024-02-13 04:29] LABS: ABS Eosinophils 0.3 10^3/uL (0.0-0.5); ABS Lymphocytes 1.1 10^3/uL (1.0-4.8); ABS Monocytes 0.9 10^3/uL (0.0-1.1); ABS Neutrophils 3.8 10^3/uL (1.5-7.6); ABS Nucleated RBC 0.01 10^3/ul; Eosinophil % 4.1 %; Hematocrit 30.4 % (38-53); Lymphocyte % 17.5 %; Mean Corpuscular Hemoglobin 29.5 pg (27-33); Mean Corpuscular Hgb Conc 32.9 g/dL (31-36); Mean Corpuscular Volume 89.7 fL (80-97); Mean Platelet Volume 8.2 fL (7.5-11.2); Nucleated Red Blood Cells % 0.1 %/100WBC (0.0-0.8); Platelet Count 153 10^3/uL (150-450); Red Blood Count 3.39 10^6/uL (4.06-5.63); Red Cell Distribution Width 18.1 % (12-17); White Blood Count 6.1 10^3/uL (3.6-10.2)
[2024-02-13 05:12] LABS: Albumin 3.3 g/dL (3.2-5.2); Albumin/Globulin Ratio 1.3 (1-3); Calcium 8.9 mg/dL (8.6-10.3); Creatinine, Serum 0.77 mg/dL (0.67-1.17); Globulin 2.6 g/dL (2-4); Magnesium 1.7 mg/dL (1.9-2.7); Phosphorus 4.6 mg/dL (2.5-5.0); Potassium 4.6 mmol/L (3.5-5.0); Total Bilirubin 0.7 mg/dL (0.2-1.0); Total Protein 5.9 g/dL (6.4-8.9); eGFR CKD-EPI 100.6 (>60)
[2024-02-13] MEDS: fentaNYL 100 mcg/2 ml 50 MCG/ML VIAL IV SLOW PU PRN (07:41)
[2024-02-13] MEDS ORDERED: cefTRIAXone 1 gm/50 mL D5W 1 GM/50 ML BAG IV SCH (08:00)
[2024-02-13] MEDS: Magnesium Sulfate 2 gm BAG 2 GM/50 ML BAG IVPB ONE (08:59)
[2024-02-13 09:50] LABS: C Reactive Protein 81.77 mg/L (<8.01)
[2024-02-13] MEDS: Dexmedetomidine 1,000 MCG in NS 0.9% 250 ml 240 ML IV SCH (10:13)
[2024-02-13 12:26] LABS: Erythrocyte Sed Rate 63 mm/Hr (0-19)
[2024-02-13] MEDS: Enoxaparin 40 MG/0.4 ML SYR SUBCUT SCH (20:18)
[2024-02-13] MEDS: Midazolam 5 mg/5 ml VIAL 1 mg/ml 5 ml VIAL (5 mg) IV SLOW PU PRN (21:14)
[2024-02-14 05:09] LABS: ABS Basophils 0.1 10^3/uL (0.0-0.1); ABS Eosinophils 0.3 10^3/uL (0.0-0.5); Eosinophil % 4.3 %; Hematocrit 32.4 % (38-53); Hemoglobin 10.6 g/dL (13.2-16.3); Lymphocyte % 14.1 %; Mean Corpuscular Hemoglobin 29.2 pg (27-33); Mean Corpuscular Hgb Conc 32.8 g/dL (31-36); Mean Corpuscular Volume 89.1 fL (80-97); Mean Platelet Volume 8.2 fL (7.5-11.2); Nucleated Red Blood Cells % 0.1 %/100WBC (0.0-0.8); Platelet Count 186 10^3/uL (150-450); Red Blood Count 3.64 10^6/uL (4.06-5.63); Red Cell Distribution Width 17.7 % (12-17); White Blood Count 7.4 10^3/uL (3.6-10.2)
[2024-02-14 05:55] LABS: Creatinine, Serum 0.64 mg/dL (0.67-1.17); Magnesium 1.6 mg/dL (1.9-2.7); Potassium 4.5 mmol/L (3.5-5.0); eGFR CKD-EPI 106.4 (>60)
[2024-02-14] MEDS: Magnesium Sulfate 2 gm BAG 2 GM/50 ML BAG IVPB ONE (08:02)
[2024-02-14] MEDS: Lactulose 30 ml UDC FEED TUBE SCH (08:05)
[2024-02-14] MEDS: Magnesium Sulfate IV 1GM/100ML 1 GM/100 ML BAG IV ONE (09:23)
[2024-02-14] MEDS ORDERED: EPINEPHrine,Rac 2.25% NEB.SOL 0.5 ML INH PRN (10:52)
[2024-02-14] MEDS ORDERED: Haloperidol 5 mg/ml SDV IV/IM 5 MG/ML AMP IM PRN (11:52)
[2024-02-14] MEDS: Dexmedetomidine 1,000 MCG in NS 0.9% 250 ml 240 ML IV SCH (19:31)
[2024-02-14] MEDS: Lactulose 30 ml UDC PO SCH (20:20)
[2024-02-14] MEDS ORDERED: Enoxaparin 40 MG/0.4 ML SYR SUBCUT SCH (21:00)
[2024-02-15 04:42] LABS: ABS Basophils 0.1 10^3/uL (0.0-0.1); ABS Eosinophils 0.3 10^3/uL (0.0-0.5); ABS Lymphocytes 1.6 10^3/uL (1.0-4.8); ABS Monocytes 0.8 10^3/uL (0.0-1.1); ABS Neutrophils 4.5 10^3/uL (1.5-7.6); ABS Nucleated RBC 0.02 10^3/ul; Eosinophil % 4.3 %; Hematocrit 33.6 % (38-53); Hemoglobin 10.9 g/dL (13.2-16.3); Lymphocyte % 21.6 %; Mean Corpuscular Hemoglobin 28.9 pg (27-33); Mean Corpuscular Hgb Conc 32.3 g/dL (31-36); Mean Corpuscular Volume 89.5 fL (80-97); Mean Platelet Volume 7.8 fL (7.5-11.2); Nucleated Red Blood Cells % 0.3 %/100WBC (0.0-0.8); Platelet Count 214 10^3/uL (150-450); Red Blood Count 3.76 10^6/uL (4.06-5.63); Red Cell Distribution Width 17.5 % (12-17); White Blood Count 7.3 10^3/uL (3.6-10.2)
[2024-02-15 05:33] LABS: Albumin 3.6 g/dL (3.2-5.2); Albumin/Globulin Ratio 1.3 (1-3); Calcium 8.9 mg/dL (8.6-10.3); Creatinine, Serum 0.65 mg/dL (0.67-1.17); Globulin 2.8 g/dL (2-4); Magnesium 1.8 mg/dL (1.9-2.7); Potassium 3.8 mmol/L (3.5-5.0); Total Bilirubin 0.8 mg/dL (0.2-1.0); Total Protein 6.4 g/dL (6.4-8.9); eGFR CKD-EPI 105.9 (>60)
[2024-02-15] MEDS ORDERED: Dextrose 50% Syringe 50 ml 25 GM/50 ML SYRINGE IV PUSH PRN (14:59)
[2024-02-16 05:08] LABS: ABS Basophils 0.1 10^3/uL (0.0-0.1); ABS Eosinophils 0.3 10^3/uL (0.0-0.5); ABS Lymphocytes 1.7 10^3/uL (1.0-4.8); ABS Monocytes 0.8 10^3/uL (0.0-1.1); ABS Neutrophils 4.7 10^3/uL (1.5-7.6); Eosinophil % 4.4 %; Hematocrit 34.4 % (38-53); Hemoglobin 11.5 g/dL (13.2-16.3); Lymphocyte % 22.6 %; Mean Corpuscular Hemoglobin 29.6 pg (27-33); Mean Corpuscular Hgb Conc 33.6 g/dL (31-36); Mean Corpuscular Volume 88.1 fL (80-97); Mean Platelet Volume 7.8 fL (7.5-11.2); Platelet Count 266 10^3/uL (150-450); Red Cell Distribution Width 17.7 % (12-17); White Blood Count 7.7 10^3/uL (3.6-10.2)
[2024-02-16 05:51] LABS: Calcium 9.1 mg/dL (8.6-10.3); Creatinine, Serum 0.75 mg/dL (0.67-1.17); Magnesium 1.6 mg/dL (1.9-2.7); Potassium 3.6 mmol/L (3.5-5.0); eGFR CKD-EPI 101.4 (>60)
[2024-02-16 08:07] LABS: Phosphorus 4.2 mg/dL (2.5-5.0)
[2024-02-16] MEDS: Magnesium Sulfate 2 gm BAG 2 GM/50 ML BAG IVPB ONE (09:19)
[2024-02-16 10:33] LABS: C Reactive Protein 34.54 mg/L (<8.01)
[2024-02-17 05:30] LABS: Hematocrit 35.4 % (38-53); Hemoglobin 11.6 g/dL (13.2-16.3); Mean Corpuscular Hemoglobin 29.1 pg (27-33); Mean Corpuscular Hgb Conc 32.8 g/dL (31-36); Mean Corpuscular Volume 88.6 fL (80-97); Mean Platelet Volume 7.8 fL (7.5-11.2); Platelet Count 313 10^3/uL (150-450); White Blood Count 6.3 10^3/uL (3.6-10.2)
[2024-02-17 05:48] LABS: Calcium 9.1 mg/dL (8.6-10.3); Creatinine, Serum 0.87 mg/dL (0.67-1.17); Magnesium 1.8 mg/dL (1.9-2.7); Potassium 3.8 mmol/L (3.5-5.0)
[2024-02-17] MEDS: Potassium Chlor 20 meq TAB.ER PO ONE (07:58)
[2024-02-17] MEDS: Magnesium Sulfate 2 gm BAG 2 GM/50 ML BAG IVPB ONE (08:01)
[2024-02-17] MEDS ORDERED: Benzocaine/Menthol LOZ PO PRN (15:21)
[2024-02-18 05:49] LABS: Hematocrit 36.7 % (38-53); Hemoglobin 12.1 g/dL (13.2-16.3); Mean Corpuscular Hemoglobin 29.4 pg (27-33); Mean Corpuscular Volume 89.1 fL (80-97); Platelet Count 355 10^3/uL (150-450); Red Blood Count 4.12 10^6/uL (4.06-5.63); Red Cell Distribution Width 17.8 % (12-17); White Blood Count 7.8 10^3/uL (3.6-10.2)
[2024-02-18 07:46] LABS: Albumin 4.1 g/dL (3.2-5.2); Albumin/Globulin Ratio 1.3 (1-3); Calcium 9.2 mg/dL (8.6-10.3); Creatinine, Serum 0.89 mg/dL (0.67-1.17); Globulin 3.1 g/dL (2-4); Magnesium 1.8 mg/dL (1.9-2.7); Potassium 4.2 mmol/L (3.5-5.0); Total Bilirubin 0.8 mg/dL (0.2-1.0); Total Protein 7.2 g/dL (6.4-8.9); eGFR CKD-EPI 96.3 (>60)
[2024-02-18 09:00] VITALS: BP 125/74
== END 2024-02-18 12:20 | DRG 896 ==
LOC: ED 18:48 → EDHOLD 18:48 → OBSVTOIN 20:00 → SUATTDRO 20:00 → ICU 22:56 → MEDTELE 02-15 18:30
PROVIDERS: ADMIT Internal Medicine; ATTEND Student in an Organized Health Care Education/Training Program

== ENCOUNTER 2024-06-11 23:12 | Observation (INO) ==
[2024-06-11] MEDS: NS 0.9% 1000 ml BAG 1,000 ML IV ONE (23:50)
[2024-06-12 02:49] LABS: Albumin 3.8 g/dL (3.2-5.2); Albumin/Globulin Ratio 1.5 (1-3); Creatinine, Serum 2.12 mg/dL (0.67-1.17); Globulin 2.6 g/dL (2-4); Magnesium 1.5 mg/dL (1.9-2.7); Potassium 3.9 mmol/L (3.5-5.0); Total Bilirubin 0.7 mg/dL (0.2-1.0); Total Protein 6.4 g/dL (6.4-8.9); eGFR CKD-EPI 34.1 (>60)
[2024-06-12 03:02] LABS: Urine Appearance Clear; Urine Bilirubin Negative (Negative); Urine Blood Trace (Negative); Urine Color Colorless; Urine Glucose Negative (Negative); Urine Ketones Negative (Negative); Urine Nitrite Negative (Negative); Urine Protein Negative (Negative); Urine Specific Gravity 1.005 (1.002-1.030); Urine Urobilinogen Negative (Negative); Urine pH 5.5 (5.0-8.0)
[2024-06-12 03:04] LABS: TSH Ultra Thyroid Stim Horm 1.67 mcIU/mL (0.34-5.60)
[2024-06-12 03:34] LABS: ABS Basophils 0.1 10^3/uL (0.0-0.1); ABS Eosinophils 0.3 10^3/uL (0.0-0.5); ABS Lymphocytes 2.9 10^3/uL (1.0-4.8); ABS Monocytes 0.7 10^3/uL (0.0-1.1); ABS Neutrophils 2.9 10^3/uL (1.5-7.6); ABS Nucleated RBC 0.01 10^3/ul; Eosinophil % 3.7 %; Hematocrit 35.4 % (38-53); Hemoglobin 11.6 g/dL (13.2-16.3); Lymphocyte % 42.7 %; Mean Corpuscular Hemoglobin 31.3 pg (27-33); Mean Corpuscular Hgb Conc 32.9 g/dL (31-36); Mean Corpuscular Volume 95.3 fL (80-97); Mean Platelet Volume 8.1 fL (7.5-11.2); Nucleated Red Blood Cells % 0.1 %/100WBC (0.0-0.8); Platelet Count 97 10^3/uL (150-450); Red Blood Count 3.71 10^6/uL (4.06-5.63); White Blood Count 6.7 10^3/uL (3.6-10.2)
[2024-06-12 03:53] LABS: High Sensitivity Troponin 1 Hr 28 pg/mL (<20)
[2024-06-12] MEDS: NS 0.9% 1000 ml BAG 1,000 ML IV ONE (04:01)
[2024-06-12] MEDS ORDERED: Ondansetron 4 mg VIAL 2 MG/ML 2 ml VIAL IV PRN (07:05)
[2024-06-12] MEDS ORDERED: Dextrose 50% Syringe 50 ml 25 GM/50 ML SYRINGE IV PUSH PRN (07:18)
[2024-06-12 07:36] LABS: High Sensitivity Troponin 3 Hr 29 pg/mL (<20)
[2024-06-12] MEDS: Thiamine 100 MG/ML 2 ml VIAL (200 mg) IM ONE (07:39)
[2024-06-12] MEDS ORDERED: Multivitamins/Minerals TAB PO SCH (09:00)
[2024-06-12] MEDS: NS 0.9% 1000 ml BAG 1,000 ML IV SCH (09:05)
[2024-06-12] MEDS: Magnesium Sulf 4 GM/100 ML IV 4,000 MG/100 ML BAG IVPB ONE (09:05)
[2024-06-12] MEDS: Multivitamins/Minerals TAB PO SCH (09:05)
[2024-06-12] MEDS: Insulin GLARGINE 100 un/ml 10 ml VIAL SUBCUT SCH (09:06)
[2024-06-12] MEDS: Enoxaparin 40 MG/0.4 ML SYR SUBCUT SCH (10:02)
[2024-06-12] MEDS: Insulin GLARGINE 100 un/ml 10 ml VIAL SUBCUT ONE (10:03)
[2024-06-12] MEDS: CMC:Solifenacin 5 mg TAB (NF) PO SCH (10:05)
[2024-06-12] MEDS: NF:ICOSAPENT ETHYL 1 GM CAPSULE (NF) PO SCH (10:05)
[2024-06-12] MEDS: tadalafiL 5 MG TABLET (NF) PO SCH (10:05)
[2024-06-13] MEDS: NF:tadalafiL 5 MG TABLET (NF) PO SCH (07:44)
[2024-06-13 07:55] LABS: Calcium 7.9 mg/dL (8.6-10.3); Creatinine, Serum 0.99 mg/dL (0.67-1.17); Potassium 4.3 mmol/L (3.5-5.0); eGFR CKD-EPI 85.1 (>60)
[2024-06-13 08:32] LABS: ABS Eosinophils 0.2 10^3/uL (0.0-0.5); ABS Monocytes 0.4 10^3/uL (0.0-1.1); Eosinophil % 5.8 %; Hematocrit 35.5 % (38-53); Hemoglobin 11.7 g/dL (13.2-16.3); Lymphocyte % 27.4 %; Mean Corpuscular Hemoglobin 31.1 pg (27-33); Mean Corpuscular Hgb Conc 32.8 g/dL (31-36); Mean Platelet Volume 8.3 fL (7.5-11.2); Nucleated Red Blood Cells % 0.1 %/100WBC (0.0-0.8); Platelet Count 79 10^3/uL (150-450); Red Blood Count 3.74 10^6/uL (4.06-5.63); Red Cell Distribution Width 20.6 % (12-17); White Blood Count 3.7 10^3/uL (3.6-10.2)
[2024-06-13] MEDS: Insulin GLARGINE 100 un/ml 10 ml VIAL SUBCUT SCH (08:43)
[2024-06-13] MEDS: Nicotine PATCH 21 MG/24 HR PATCH TRANSDERM SCH (08:45)
[2024-06-13 11:02] LABS: Urine Creatinine Concentration 53.67 mg/dL (20.00-370.00)
[2024-06-14 07:13] LABS: ABS Basophils 0.1 10^3/uL (0.0-0.1); ABS Eosinophils 0.2 10^3/uL (0.0-0.5); ABS Lymphocytes 1.2 10^3/uL (1.0-4.8); ABS Monocytes 0.4 10^3/uL (0.0-1.1); ABS Nucleated RBC 0.01 10^3/ul; Albumin 4.1 g/dL (3.2-5.2); Albumin/Globulin Ratio 1.5 (1-3); Calcium 8.2 mg/dL (8.6-10.3); Creatinine, Serum 1.08 mg/dL (0.67-1.17); Direct Bilirubin 0.5 mg/dL (0.03-0.18); Eosinophil % 4.9 %; Globulin 2.7 g/dL (2-4); Hematocrit 36.9 % (38-53); Hemoglobin 11.9 g/dL (13.2-16.3); Indirect Bilirubin 0.6 mg/dL (0.3-1.0); Lymphocyte % 31.1 %; Mean Corpuscular Hemoglobin 30.8 pg (27-33); Mean Corpuscular Hgb Conc 32.3 g/dL (31-36); Mean Corpuscular Volume 95.3 fL (80-97); Mean Platelet Volume 7.7 fL (7.5-11.2); Nucleated Red Blood Cells % 0.4 %/100WBC (0.0-0.8); Phosphorus 3.2 mg/dL (2.5-5.0); Platelet Count 89 10^3/uL (150-450); Potassium 4.5 mmol/L (3.5-5.0); Red Blood Count 3.87 10^6/uL (4.06-5.63); Red Cell Distribution Width 20.7 % (12-17); Total Bilirubin 1.1 mg/dL (0.2-1.0); Total Protein 6.8 g/dL (6.4-8.9); White Blood Count 3.8 10^3/uL (3.6-10.2); eGFR CKD-EPI 76.6 (>60)
[2024-06-14 07:14] LABS: INR 1.1 (0.85-1.14)
[2024-06-14 10:44] LABS: Hepatitis C Antibody Negative (Negative)
[2024-06-14] MEDS: Influenza Vaccine *TRI* 2024-25* 0.5 ML SYRINGE IM ONE (13:05)
[2024-06-14] MEDS: COVID VAC 24-25 (12+) (Moderna) Syringe 0.5 mL IM ONE (13:10)
[2024-06-14 14:07] VITALS: BP 112/88
[2024-06-16 10:45] LABS: Zinc, S 74 mcg/dL (60-106)
== END 2024-06-14 14:47 | disposition home or self-care (01) ==
LOC: ED 23:12 → EDHOLD 23:12 → SUATTDRO 06-12 07:05 → MEDTELE 06-12 10:15
PROVIDERS: ADMIT Student in an Organized Health Care Education/Training Program; ATTEND Internal Medicine